=== PATIENT | female | born 1940 | race Caucasian/White ===

== ENCOUNTER 2019-08-03 12:38 | Outpatient (CLI) | payer MEDICARE, MEDICAID, SELFPAY ==
[2019-08-03 14:09] LABS: Basophils % 0.2 %; Eosinophils # 0.1 10^3/uL (0.0-0.8); Eosinophils % 1.7 %; Hematocrit 29.3 % (37.0-47.0); Hemoglobin 9.5 g/dL (11.5-15.3); Lymphocytes # 1.1 10^3/uL (0.8-4.8); Lymphocytes % 13.1 %; Mean Corpuscular HGB Conc 32.4 g/dL (30.0-36.0); Mean Corpuscular Hemoglobin 29.8 pg (28.0-34.0); Mean Corpuscular Volume 91.8 fL (81-99); Mean Platelet Volume 10.1 fL (7.4-10.4); Monocytes # 0.5 10^3/uL (0.2-0.9); Monocytes % 5.4 %; Neutrophils # 6.5 10^3/uL (1.8-7.7); Nucleated Red Blood Cells % 0 %; Platelet Count 285 10^3/cmm (130-400); Red Blood Count 3.19 10^6/uL (4.1-5.3); Red Cell Distribution Width 14.1 % (12.1-15.1); White Blood Count 8.3 10^3/uL (4.0-10.0)
[2019-08-03 14:23] LABS: Ferritin 177 ng/mL (15-150); Iron 46 ug/dL (37-145); Total Iron Binding Capacity 191 mg/dL; Unsaturated Iron Binding 145 ug/dL (112-347)
--- NOTE | 2019-08-03 16:35 | ONC FU_ITS ---
Dr. Gonzales follow up note Patient: Beth Winkler Unit #: [id number]: 1940 Dicatated By: Rob Gonzales M.D.Date of Visit:Aug 03, 2019 Onc Med Follow-up/Prog Note History of Present Illness: Mrs. Beth Winkler, with long-standing history of iron deficiency anemia for many years , on chronic oral iron supplements recently admitted to hospital on 08/28/2017 with hemoglobin 5.8 hematocrit 19.2 with a normal white blood count and platelets she was given 2 units of packed RBCs with that her hemoglobin gone up to 8.5 on 08/29/2017. , stools were checked for occult blood on 08/30/2017 it came back positive. And underwent EGD which showed no gastritis or ulceration , further anemia workup done on 08/28/2017 showed B12 387, TIBC 396.3, iron 28, folate 12.50. Her bilirubin was 0.2. She was given dose of Venofer Peripheral blood smears done on 08/27/2017 showed marked normocytic anemia, with no schistocytes or spherocytes generalized weakness and fatigue and she did receive 2 units of packed RBC . She also had colonoscopy done on 10/09/2017 as per patient couple of polyps were seen otherwise unremarkable. Underwent bone marrow evaluation on 11/13/2017 which showed hypocellular bone marrow with dyspoiesis of erythrocyte and megakaryocytes. Myelodysplastic syndrome FISH panel was negative. She was given trial of erythropoiesis stimulating agent without much success and finally she was referred to hematology clinic at [facility] she was seen on 02/04/2019 and lab workup done there including B12, was normal at 661, homocystine was 9.3, white blood count 10.1 hemoglobin was 11.5 and platelet count was 306,000 MCV was 89.3. Ferritin was 42 TIBC was 264 saturation was 16%. Haptoglobin was mildly elevated at 254, LDH was normal at 170, folate was more than 20 .Status post Injectafer 750 mg on May 26 and 06/02/2019 Impression was her anemia is multifactorial including secondary iron deficiency and patient being very low risk category for myelodysplastic syndrome and would not consider erythropoietin stimulating agent at this time rather monitor her hemoglobin while on iron supplement and if there is drop in her hemoglobin recommended GI evaluation. Came for follow-up, denies any specific complaints no nausea vomiting no diarrhea constipation no palpitation no jaundice, no shortness of breath at rest.. No melena or hematochezia no hemoptysis or hematemesis. Medications: Adult Aspirin EC Low Strength 1 (81 mg) Tablet, enteric coated Oral daily, Ascorbic Acid 1 (500 mg) Tablet Oral daily, Cholecalciferol 1 (1000 Units) Tablet Oral b.i.d., Creon 1 (72401 Units) Capsule Delayed Release Particles Oral t.i.d., Demadex 1 (10 mg) Tablet Oral daily, Econazole Nitrate Cream Topical b.i.d., Ferrous Sulfate 1 (325 (65 fe) mg) Tablet Oral daily, Flonase 1 spray(s) (of 50 mcg/act) Suspension Nasal daily, Insulin Degludec 30 Units Subcutaneous daily, Lisinopril 1 (20 mg) Tablet Oral daily, NovoLOG (100 Units/mL) Subcutaneous Take as Directed, Ocuvite Adult 50+ 1 Capsule Oral daily, [place]-3 1 (1000 mg) Capsule Oral b.i.d., Pletal 1 (100 mg) Tablet Oral b.i.d., Protonix 1 (40 mg) Tablet, enteric coated Oral daily, Proventil HFA 2 puff(s) (of 108 (90 base) mcg/act) Aerosol, solution Inhalation four times a day Allergies: Alginic Acid, Aluminum Hydroxide Gel, bee sting, Calcium Carbonate, dihydroxyaluminum sodium, Loratadine, Magnesium Carbonate, Magnesium Hydroxide, Simethicone, and Sulfa. Review of Systems: Review of Systems is not available for this patient. Vital Signs: Performed on Aug 03, 2019 14:59 Height - 62.00 in Weight - 251.4 lbs (LOW) BSA - 2.11 sq.m BMI - 45.98 (HIGH) Temperature - 97.9 F (LOW) Pulse - 88 /min Respiration - 18 /min BP - 112/43 mm(hg) O2 Sat - 98 % Pain - 0 Performance Status: 2 - Ambulatory/capable of all self-care, unable to perform any work activities. Up and about more than 50% of waking hours. (ECOG) Physical Examination: ENMT - No oral exudates, ulcers, masses, thrush or mucositis. Oropharynx clear. Tongue normal, Respiratory - Lungs are clear to auscultation without rhonchi or wheezing, Cardiovascular - Regular rate and rhythm of heart, Abdomen - Non-tender, non-distended, . Good bowel sounds. No guarding or rebound tenderness. No pulsatile masses, Extremities - 1+ edema bilaterally. Lab/Imaging: Test performed on Aug 03, 2019 14:55 % Iron Saturation 24.0 % Iron, Total 46 mcg/dL TIBC 191 mcg/dL Test performed on May 11, 2019 14:28 Ferritin 36.0 ng/ml UIBC 186 ug/dL WBC 10.5 10 3/uL RBC 3.30 10 6/uL HGB 9.7 g/dl HCT 28.7 % MCV 87.0 fl MCH 29.4 pg MCHC 33.8 g/dl RDW 15.6 % Platelet Count 303 10 3/cmm MPV 7.2 fl Neutrophils 8.9 10 3/uL Lymphocytes 1.0 10 3/uL Monocytes 0.4 10 3/uL Eosinophils 0.1 10 3/uL Basophils 0.0 10 3/uL Neutrophil % 85.4 % Lymphocyte % 9.2 % Monocyte % 4.2 % Eosinophil % 1.0 % Basophils % 0.2 % Test performed on Mar 09, 2019 13:10 Sodium 136 mmol/L Potassium 4.0 mmol/L Chloride 96 mmol/L CO2 28 mmol/L Anion Gap 16.0 BUN 17 mg/dL Creatinine 0.8 mg/dL Cr Clearance (Est) 107.53 mL/min Glucose 198 mg/dl Calcium 10.1 mg/dL Protein, Total 6.8 g/dL Albumin 3.8 g/dL Globulin 3.0 gm/dL Bilirubin, Total 0.2 mg/dL ALT (SGPT) 11 U/L AST (SGOT) 19 U/L Alkaline Phosphatase 87 U/L Impression: Normocytic normochromic anemia,Due to myelodysplasia per bone marrow done on 11/13/2017 Status post 2 units of packed RBCs on 08/28/2017, and dose of Venofer now on oral iron Status post 2 units of packed RBCs on 10/28/2017 History of iron deficiency anemia with a normal EGD in 2011 and on 08/29/2017 and normal colonoscopy in 2008. Colonoscopy done on 10/09/2017 showed in the proximal ascending colon a small area of angiectasia there was no ongoing bleeding. And descending and sigmoid colon small diverticula but not bleeding and internal hemorrhoids Bone marrow done on 11/13/2017 showed hypercellular bone marrow with red cell hyperplasia and dyspoiesis of red cell precursors and megakaryocytes consistent with a myelodysplasia FISH for MDS negative, flow cytometric and cytogenetic normal. Started on Procrit 60,000 units subcutaneous once a week on 01/14/2018 at that time hemoglobin was 7.9 hematocrit 24.5 Status post Injectafer 750 mg intravenously on May 27 and 2017 Hemoglobin on 06/25/2018 improved to 8.7 from 7.1 prior to the infusion Plan: Discussed with patient regarding her labs white blood count 8.3 hemoglobin 9.5 crit 29 point platelets 289,000 and ferritin 177 iron saturation 24 iron 46 TIBC 191, that is after 2 doses of Injectafer given May 2019 Clinically, patient is doing well with well compensated moderate anemia which is multifactorial including underlying myelodysplasia as well as iron deficiency. Patient is not physically active most of time stay in wheelchair. Her hemoglobin is at her baseline, will continue to monitor if there is a further drop in her H&H and iron stores then will consider parenteral iron otherwise monitor her closely on the other hand if she started requiring blood transfusion then we may consider treatment for underlying myelodysplasia too. Return to clinic in 3 months with CBC and iron studies. Signed By: Rob Gonzales M.D. <<Signature on File>>
== END 2019-08-03 12:39 | disposition home or self-care (01) ==
LOC: ONCMED 12:43
PROVIDERS: PCP Nurse Practitioner; Visit Provider Internal Medicine Hematology & Oncology
DX: D46.9 Myelodysplastic syndrome, unspecified (principal); Z99.3 Dependence on wheelchair; Z79.82 Long term (current) use of aspirin
CPT/HCPCS: 82728; 83540; 83550; 85025; G0463

== ENCOUNTER 2019-08-04 09:07 | Outpatient (RCR) | payer MEDICARE, MEDICAID, SELFPAY | END 2019-08-06 23:59 | disposition home or self-care (01) | LOC: WOUND 09:07 | PROVIDERS: Visit Provider Nurse Practitioner Family | DX: I96 Gangrene, not elsewhere classified (principal); L98.492 Non-pressure chronic ulcer of skin of other sites with fat layer exposed | CPT/HCPCS: 99213; G0463 ==

== ENCOUNTER 2019-08-25 09:47 | Outpatient (RCR) | payer MEDICARE, MEDICAID, SELFPAY | END 2019-09-04 23:59 | disposition home or self-care (01) | LOC: WOUND 09:47 | PROVIDERS: PCP Nurse Practitioner; Visit Provider Nurse Practitioner Family | DX: Z09 Encounter for follow-up examination after completed treatment for conditions other than malignant neoplasm (principal) | CPT/HCPCS: 99214; G0463 ==

== ENCOUNTER 2019-11-08 10:55 | Outpatient (CLI) | payer MEDICARE, MEDICAID, SELFPAY ==
[2019-11-08 13:22] LABS: Ferritin 47 ng/mL (15-150); Iron 27 ug/dL (37-145); Percent Saturation 9.9 % (20-50); Total Iron Binding Capacity 271 mcg/dl; Unsaturated Iron Binding 244 ug/dL (112-347)
== END 2019-11-08 10:56 | disposition home or self-care (01) ==
LOC: ONCMED 10:59
PROVIDERS: PCP Nurse Practitioner; Visit Provider Internal Medicine Hematology & Oncology
DX: D50.9 Iron deficiency anemia, unspecified (principal)
CPT/HCPCS: 36415; 82728; 83540; 83550; 85025

== ENCOUNTER 2019-11-19 07:40 | Outpatient (CLI) | payer MEDICARE, MEDICAID, SELFPAY ==
[2019-11-19 11:25] LABS: Basophils # 0.1 10^3/uL (0.0-0.1); Basophils % 0.6 %; Eosinophils # 0.1 10^3/uL (0.0-0.8); Eosinophils % 1.5 %; Hematocrit 30.2 % (37.0-47.0); Hemoglobin 8.8 g/dL (11.5-15.3); Lymphocytes # 1.1 10^3/uL (0.8-4.8); Lymphocytes % 12.6 %; Mean Corpuscular HGB Conc 29.1 g/dL (30.0-36.0); Mean Corpuscular Hemoglobin 27.2 pg (28.0-34.0); Mean Corpuscular Volume 93.5 fL (81-99); Mean Platelet Volume 10.3 fL (7.4-10.4); Monocytes # 0.4 10^3/uL (0.2-0.9); Monocytes % 5.1 %; Neutrophils # 6.7 10^3/uL (1.8-7.7); Neutrophils % 79.5 %; Nucleated Red Blood Cells % 0 %; Platelet Count 275 10^3/cmm (130-400); Red Blood Count 3.23 10^6/uL (4.1-5.3); Red Cell Distribution Width 13.9 % (12.1-15.1); White Blood Count 8.4 10^3/uL (4.0-10.0)
[2019-11-19 11:49] LABS: Ferritin 53 ng/mL (15-150); Iron 73 ug/dL (37-145); Percent Saturation 31.3 % (20-50); Total Iron Binding Capacity 233 mcg/dl; Unsaturated Iron Binding 160 ug/dL (112-347)
== END 2019-11-19 07:41 | disposition home or self-care (01) ==
LOC: ONCMED 11:27
PROVIDERS: PCP Nurse Practitioner; Visit Provider Internal Medicine Hematology & Oncology
DX: D50.9 Iron deficiency anemia, unspecified (principal)
CPT/HCPCS: 36415; 82728; 83540; 83550; 85025

== ENCOUNTER 2019-11-22 15:41 | Outpatient (CLI) | payer MEDICARE, MEDICAID, SELFPAY ==
--- NOTE | 2019-11-22 16:50 | ONC FU_ITS ---
Dr. Gonzales follow up note Patient: Beth Winkler Unit #: [id number]: 1940 Dicatated By: Rob Gonzales M.D.Date of Visit:November 22, 2019 Onc Med Follow-up/Prog Note History of Present Illness: Mrs. Beth Winkler, with long-standing history of iron deficiency anemia for many years , on chronic oral iron supplements recently admitted to hospital on 08/28/2017 with hemoglobin 5.8 hematocrit 19.2 with a normal white blood count and platelets she was given 2 units of packed RBCs with that her hemoglobin gone up to 8.5 on 08/29/2017. , stools were checked for occult blood on 08/30/2017 it came back positive. And underwent EGD which showed no gastritis or ulceration , further anemia workup done on 08/28/2017 showed B12 387, TIBC 396.3, iron 28, folate 12.50. Her bilirubin was 0.2. She was given dose of Venofer Peripheral blood smears done on 08/27/2017 showed marked normocytic anemia, with no schistocytes or spherocytes generalized weakness and fatigue and she did receive 2 units of packed RBC . She also had colonoscopy done on 10/09/2017 as per patient couple of polyps were seen otherwise unremarkable. Underwent bone marrow evaluation on 11/13/2017 which showed hypocellular bone marrow with dyspoiesis of erythrocyte and megakaryocytes. Myelodysplastic syndrome FISH panel was negative. She was given trial of erythropoiesis stimulating agent without much success and finally she was referred to hematology clinic at [facility] she was seen on 02/04/2019 and lab workup done there including B12, was normal at 661, homocystine was 9.3, white blood count 10.1 hemoglobin was 11.5 and platelet count was 306,000 MCV was 89.3. Ferritin was 42 TIBC was 264 saturation was 16%. Haptoglobin was mildly elevated at 254, LDH was normal at 170, folate was more than 20 .Status post Injectafer 750 mg on May 26 and 06/02/2019 Impression was her anemia is multifactorial including secondary iron deficiency and patient being very low risk category for myelodysplastic syndrome and would not consider erythropoietin stimulating agent at this time rather monitor her hemoglobin while on iron supplement and if there is drop in her hemoglobin recommended GI evaluation. Came for follow-up, denies any specific complaints except generalized weakness and fatigue, which is chronic. Otherwise no melena or hematochezia, no nausea or vomiting, no hemoptysis or hematemesis, no nosebleed, no jaundice, no palpitation or shortness of breath at rest Medications: Adult Aspirin EC Low Strength 1 (81 mg) Tablet, enteric coated Oral daily, Ascorbic Acid 1 (500 mg) Tablet Oral daily, Cholecalciferol 1 (1000 Units) Tablet Oral b.i.d., Creon 1 (75394 Units) Capsule Delayed Release Particles Oral t.i.d., Demadex 1 (10 mg) Tablet Oral daily, Econazole Nitrate Cream Topical b.i.d., Ferrous Sulfate 1 (325 (65 fe) mg) Tablet Oral daily, Flonase 1 spray(s) (of 50 mcg/act) Suspension Nasal daily, Insulin Degludec 30 Units Subcutaneous daily, Lisinopril 1 (20 mg) Tablet Oral daily, NovoLOG (100 Units/mL) Subcutaneous Take as Directed, Ocuvite Adult 50+ 1 Capsule Oral daily, [place]-3 1 (1000 mg) Capsule Oral b.i.d., Pletal 1 (100 mg) Tablet Oral b.i.d., Protonix 1 (40 mg) Tablet, enteric coated Oral daily, Proventil HFA 2 puff(s) (of 108 (90 base) mcg/act) Aerosol, solution Inhalation four times a day Allergies: Alginic Acid, Aluminum Hydroxide Gel, bee sting, Calcium Carbonate, dihydroxyaluminum sodium, Loratadine, Magnesium Carbonate, Magnesium Hydroxide, Simethicone, and Sulfa. Review of Systems: Constitutional - Appetite is good and weight is stable. No fever, chills, hot flashes, or night sweats. Energy level is poor, ENMT - Some sinus congestion/drainage. No mouth sores. No sore throat or difficulty swallowing, Hematologic/Lymphatic - No abnormal bruising or bleeding, Respiratory - Frequent shortness of breath. Pt is on portable oxygen today. No cough. No pleuritic pain or hemoptysis, Cardiovascular - No angina pain. No palpitations, Gastrointestinal - No nausea or vomiting. Frequent heartburn or acid reflux. No diarrhea or constipation. No blood in the stool or black stools, Genitourinary (F) - No dysuria or hematuria. No urinary frequency. No urgency or incontinence, Musculoskeletal - Bilateral knee pain, Neurologic - Frequent headache or dizziness. Chronic numbness/paresthesias in feet.No other focal neurologic symptoms, Psychiatric - No anxiety or depression. No insomnia. Vital Signs: Performed on November 22, 2019 16:00 Height - 62.00 in Weight - 255.6 lbs (HIGH) BSA - 2.12 sq.m BMI - 46.75 (HIGH) Temperature - 98.2 F (LOW) Pulse - 85 /min Respiration - 19 /min BP - 135/50 mm(hg) O2 Sat - 100 % Pain - 9 Performance Status: 2 - Ambulatory/capable of all self-care, unable to perform any work activities. Up and about more than 50% of waking hours. (ECOG) Physical Examination: ENMT - no mouth sores, no jaundice, Respiratory - Lungs are clear but poor air entry, Cardiovascular - Regular rate and rhythm of heart, Abdomen - soft ,bowel sounds present, Extremities - 1+ edema bilaterally. Lab/Imaging: Test performed on November 19, 2019 07:40 Ferritin 53 ng/mL Iron 73 mcg/dL Iron Binding Capacity (TIBC) 233 mcg/dl % Iron Saturation 31.3 % UIBC 160 mcg/dL WBC 8.4 10 3/uL RBC 3.23 10 6/uL HGB 8.8 g/dL HCT 30.2 % MCV 93.5 fL MCH 27.2 pg MCHC 29.1 g/dL RDW 13.9 % Platelet Count 275 10 3/cmm MPV 10.3 fL Neutrophils 6.7 10 3/uL Lymphocytes 1.1 10 3/uL Monocytes 0.4 10 3/uL Eosinophils 0.1 10 3/uL Basophils 0.1 10 3/uL Neutrophil % 79.5 % Lymphocyte % 12.6 % Monocyte % 5.1 % Eosinophil % 1.5 % Basophils % 0.6 % Impression: Normocytic normochromic anemia,Due to myelodysplasia per bone marrow done on 11/13/2017 Status post 2 units of packed RBCs on 08/28/2017, and dose of Venofer now on oral iron Status post 2 units of packed RBCs on 10/28/2017 History of iron deficiency anemia with a normal EGD in 2011 and on 08/29/2017 and normal colonoscopy in 2008. Colonoscopy done on 10/09/2017 showed in the proximal ascending colon a small area of angiectasia there was no ongoing bleeding. And descending and sigmoid colon small diverticula but not bleeding and internal hemorrhoids Bone marrow done on 11/13/2017 showed hypercellular bone marrow with red cell hyperplasia and dyspoiesis of red cell precursors and megakaryocytes consistent with a myelodysplasia FISH for MDS negative, flow cytometric and cytogenetic normal. Started on Procrit 60,000 units subcutaneous once a week on 01/14/2018 at that time hemoglobin was 7.9 hematocrit 24.5 Status post Injectafer 750 mg intravenously on May 27 and 2017 Hemoglobin on 06/25/2018 improved to 8.7 from 7.1 prior to the infusion Plan: Discussed with patient regarding her labs white blood count 8.4 hemoglobin 8.8 g compared to 9.5 g on 08/03/2019, hematocrit 30.2 platelets 275,000 Iron studies shows iron saturation 31.3, iron 72, TIBC 233 Clinically, patient is doing well with no signs symptom suggestive of hemolysis or bleeding. Her follow-up lab shows persistent but stable moderate normocytic anemia, which appears to be multifactorial including underlying myelodysplasia, patient is a wheelchair-bound not physically active and her anemia as well compensated. So discussed with patient and her daughter regarding treatment options including demethylating agent or trial with erythropoiesis stimulating agent or observation as patient is not requiring repeated blood transfusions and not symptomatic from anemia. So at patient request we'll continue to monitor and She will return to clinic in one month with CBC CMP Signed By: Rob Gonzales M.D. <<Signature on File>>
== END 2019-11-22 15:42 | disposition home or self-care (01) ==
LOC: ONCMED 15:48
PROVIDERS: PCP Nurse Practitioner; Visit Provider Internal Medicine Hematology & Oncology
DX: D46.9 Myelodysplastic syndrome, unspecified (principal); Z79.899 Other long term (current) drug therapy
CPT/HCPCS: G0463

== ENCOUNTER 2019-12-17 09:40 | Outpatient (CLI) | payer MEDICARE, MEDICAID, SELFPAY ==
[2019-12-17 11:51] LABS: Basophils # 0.1 10^3/uL (0.0-0.1); Basophils % 0.7 %; Eosinophils # 0.1 10^3/uL (0.0-0.8); Eosinophils % 1.4 %; Hemoglobin 8.6 g/dL (11.5-15.3); Lymphocytes # 1.1 10^3/uL (0.8-4.8); Lymphocytes % 10.8 %; Mean Corpuscular HGB Conc 28.7 g/dL (30.0-36.0); Mean Corpuscular Volume 94.3 fL (81-99); Mean Platelet Volume 9.2 fL (7.4-10.4); Monocytes # 0.6 10^3/uL (0.2-0.9); Monocytes % 6.2 %; Neutrophils % 80.3 %; Nucleated Red Blood Cells % 0 %; Platelet Count 328 10^3/cmm (130-400); Red Blood Count 3.18 10^6/uL (4.1-5.3); Red Cell Distribution Width 14.8 % (12.1-15.1); White Blood Count 9.9 10^3/uL (4.0-10.0)
[2019-12-17 12:13] LABS: Alanine Aminotransferase 10 U/L (0-33); Albumin Level 3.6 g/dL (3.5-5.2); Alkaline Phosphatase 85 IU/L (35-105); Anion Gap 17.9 (5-19); Aspartate Amino Transferase 18 U/L (0-32); Blood Urea Nitrogen 15 mg/dL (8-23); Calcium 9.9 mg/dL (8.5-10.5); Carbon Dioxide 28 mmol/L (22-29); Chloride 98 mmol/L (98-107); Globulin 3.7 g/dL (1.3-4.6); Glucose 112 mg/dL (65-115); Osmolality Calculated 289 mOsm/kg (285-295); Sodium 141 mmol/L (136-145); Total Bilirubin 0.2 mg/dL (0.15-1.2); Total Protein 7.3 g/dL (6.6-8.7)
[2019-12-17 12:22] LABS: Potassium 2.9 mmol/L (3.5-5.1)
[2019-12-18 18:36] LABS: Magnesium 1.8 mg/dL (1.7-2.3)
== END 2019-12-17 09:41 | disposition home or self-care (01) ==
LOC: ONCMED 11:33
PROVIDERS: PCP Nurse Practitioner; Visit Provider Internal Medicine Hematology & Oncology
DX: D50.9 Iron deficiency anemia, unspecified (principal); I25.10 Atherosclerotic heart disease of native coronary artery without angina pectoris; I65.23 Occlusion and stenosis of bilateral carotid arteries; J44.9 Chronic obstructive pulmonary disease, unspecified; I10 Essential (primary) hypertension; E78.5 Hyperlipidemia, unspecified; G47.33 Obstructive sleep apnea (adult) (pediatric); E11.9 Type 2 diabetes mellitus without complications
CPT/HCPCS: 36415; 80053; 83735; 85025

== ENCOUNTER 2019-12-20 13:06 | Outpatient (CLI) | payer MEDICARE, MEDICAID, SELFPAY ==
[2019-12-20 13:55] LABS: Alanine Aminotransferase 8 U/L (0-33); Albumin Level 3.7 g/dL (3.5-5.2); Alkaline Phosphatase 79 IU/L (35-105); Anion Gap 15.6 (5-19); Aspartate Amino Transferase 12 U/L (0-32); Blood Urea Nitrogen 15 mg/dL (8-23); Calcium 10.8 mg/dL (8.5-10.5); Carbon Dioxide 28 mmol/L (22-29); Chloride 100 mmol/L (98-107); Glucose 159 mg/dL (65-115); Osmolality Calculated 290 mOsm/kg (285-295); Potassium 3.6 mmol/L (3.5-5.1); Sodium 140 mmol/L (136-145); Total Bilirubin 0.2 mg/dL (0.15-1.2); Total Protein 6.7 g/dL (6.6-8.7)
--- NOTE | 2019-12-20 14:49 | ONC FU_ITS ---
Dr. Gonzales follow up note Patient: Beth Winkler Unit #: [id number]: 1940 Dicatated By: Rob Gonzales M.D.Date of Visit:Dec 20, 2019 Onc Med Follow-up/Prog Note History of Present Illness: Mrs. Beth Winkler, with long-standing history of iron deficiency anemia for many years , on chronic oral iron supplements recently admitted to hospital on 08/28/2017 with hemoglobin 5.8 hematocrit 19.2 with a normal white blood count and platelets she was given 2 units of packed RBCs with that her hemoglobin gone up to 8.5 on 08/29/2017. , stools were checked for occult blood on 08/30/2017 it came back positive. And underwent EGD which showed no gastritis or ulceration , further anemia workup done on 08/28/2017 showed B12 387, TIBC 396.3, iron 28, folate 12.50. Her bilirubin was 0.2. She was given dose of Venofer Peripheral blood smears done on 08/27/2017 showed marked normocytic anemia, with no schistocytes or spherocytes generalized weakness and fatigue and she did receive 2 units of packed RBC . She also had colonoscopy done on 10/09/2017 as per patient couple of polyps were seen otherwise unremarkable. Underwent bone marrow evaluation on 11/13/2017 which showed hypocellular bone marrow with dyspoiesis of erythrocyte and megakaryocytes. Myelodysplastic syndrome FISH panel was negative. She was given trial of erythropoiesis stimulating agent without much success and finally she was referred to hematology clinic at [facility] she was seen on 02/04/2019 and lab workup done there including B12, was normal at 661, homocystine was 9.3, white blood count 10.1 hemoglobin was 11.5 and platelet count was 306,000 MCV was 89.3. Ferritin was 42 TIBC was 264 saturation was 16%. Haptoglobin was mildly elevated at 254, LDH was normal at 170, folate was more than 20 .Status post Injectafer 750 mg on May 26 and 06/02/2019 Impression was her anemia is multifactorial including secondary iron deficiency and patient being very low risk category for myelodysplastic syndrome and would not consider erythropoietin stimulating agent at this time rather monitor her hemoglobin while on iron supplement and if there is drop in her hemoglobin recommended GI evaluation. Came for follow-up, denies any specific complaints, no melena or hematochezia, no hematuria, no hemoptysis or hematemesis, no jaundice. Patient is a wheelchair-bound most of the time not a very active person denies any dyspnea or palpitation, denies any chest pain Medications: Adult Aspirin EC Low Strength 1 (81 mg) Tablet, enteric coated Oral daily, Ascorbic Acid 1 (500 mg) Tablet Oral daily, Cholecalciferol 1 (1000 Units) Tablet Oral b.i.d., Creon 1 (20358 Units) Capsule Delayed Release Particles Oral t.i.d., Demadex 1 (10 mg) Tablet Oral daily, Econazole Nitrate Cream Topical b.i.d., Ferrous Sulfate 1 (325 (65 fe) mg) Tablet Oral daily, Flonase 1 spray(s) (of 50 mcg/act) Suspension Nasal daily, Furosemide 1 Tablet (of 20 mg) Oral daily, Insulin Degludec 30 Units Subcutaneous daily, K-Tab 1 Tablet (of 20 meq) Tablet, controlled release Oral daily, Lisinopril 1 (20 mg) Tablet Oral daily, NovoLOG (100 Units/mL) Subcutaneous Take as Directed, Ocuvite Adult 50+ 1 Capsule Oral daily, [facility] [place]-3 1 (1000 mg) Capsule Oral b.i.d., Pletal 1 (100 mg) Tablet Oral b.i.d., Protonix 1 (40 mg) Tablet, enteric coated Oral daily, Proventil HFA 2 puff(s) (of 108 (90 base) mcg/act) Aerosol, solution Inhalation four times a day Allergies: Alginic Acid, Aluminum Hydroxide Gel, bee sting, Calcium Carbonate, dihydroxyaluminum sodium, Loratadine, Magnesium Carbonate, Magnesium Hydroxide, Simethicone, and Sulfa. Review of Systems: Constitutional - Appetite is good and weight is stable. No fever, chills, hot flashes, or night sweats. Energy level is poor, ENMT - Some sinus congestion/drainage. No mouth sores. No sore throat or difficulty swallowing, Hematologic/Lymphatic - No abnormal bruising or bleeding, Respiratory - Frequent shortness of breath. Pt is on portable oxygen today. No cough. No pleuritic pain or hemoptysis, Cardiovascular - No angina pain. No palpitations, Gastrointestinal - No nausea or vomiting. Frequent heartburn or acid reflux. No diarrhea or constipation. No blood in the stool or black stools, Genitourinary (F) - No dysuria or hematuria. No urinary frequency. No urgency or incontinence, Musculoskeletal - Bilateral knee pain, Neurologic - Frequent headache or dizziness. Chronic numbness/paresthesias in feet.No other focal neurologic symptoms, Psychiatric - No anxiety or depression. No insomnia. Vital Signs: Performed on Dec 20, 2019 14:24 Height - 62.00 in Weight - 257.4 lbs (HIGH) BSA - 2.13 sq.m BMI - 47.08 (HIGH) Temperature - 98.8 F Pulse - 93 /min Respiration - 26 /min BP - 130/40 mm(hg) O2 Sat - 98 % Pain - 9 Performance Status: 2 - Ambulatory/capable of all self-care, unable to perform any work activities. Up and about more than 50% of waking hours. (ECOG) Physical Examination: ENMT - No mouth sores, no thrush, no jaundice, Respiratory - Lungs are clear, Cardiovascular - Regular rate and rhythm of heart, Abdomen - Soft, bowel sounds present, Extremities - 1+ edema bilaterally. Lab/Imaging: Test performed on November 19, 2019 07:40 Ferritin 53 ng/mL Iron 73 mcg/dL Iron Binding Capacity (TIBC) 233 mcg/dl % Iron Saturation 31.3 % UIBC 160 mcg/dL WBC 8.4 10 3/uL RBC 3.23 10 6/uL HGB 8.8 g/dL HCT 30.2 % MCV 93.5 fL MCH 27.2 pg MCHC 29.1 g/dL RDW 13.9 % Platelet Count 275 10 3/cmm MPV 10.3 fL Neutrophils 6.7 10 3/uL Lymphocytes 1.1 10 3/uL Monocytes 0.4 10 3/uL Eosinophils 0.1 10 3/uL Basophils 0.1 10 3/uL Neutrophil % 79.5 % Lymphocyte % 12.6 % Monocyte % 5.1 % Eosinophil % 1.5 % Basophils % 0.6 % Impression: Normocytic normochromic anemia,Due to myelodysplasia per bone marrow done on 11/13/2017 Status post 2 units of packed RBCs on 08/28/2017, and dose of Venofer now on oral iron Status post 2 units of packed RBCs on 10/28/2017 History of iron deficiency anemia with a normal EGD in 2011 and on 08/29/2017 and normal colonoscopy in 2008. Colonoscopy done on 10/09/2017 showed in the proximal ascending colon a small area of angiectasia there was no ongoing bleeding. And descending and sigmoid colon small diverticula but not bleeding and internal hemorrhoids Bone marrow done on 11/13/2017 showed hypercellular bone marrow with red cell hyperplasia and dyspoiesis of red cell precursors and megakaryocytes consistent with a myelodysplasia FISH for MDS negative, flow cytometric and cytogenetic normal. Started on Procrit 60,000 units subcutaneous once a week on 01/14/2018 at that time hemoglobin was 7.9 hematocrit 24.5 Status post Injectafer 750 mg intravenously on May 27 and 2017 Hemoglobin on 06/25/2018 improved to 8.7 from 7.1 prior to the infusion Plan: Discussed with patient regarding her labs white blood count 9.9 hemoglobin 8.6 crit 30 platelets 328,000 CMP within normal limit except glucose 159 and calcium 10,8, compared to 9.9 on December 17, 2019. Clinically, patient is doing well, with no new signs symptom her follow-up labs shows persistent mild/moderate anemia due to underlying myelodysplasia, patient is well compensated, again treatment with KELL or demethylating agents was discussed with patient and her daughter prefer observation, as patient is not symptomatic and considering side effect and benefits associated with treatment overweigh risk versus benefit. And prefer observation, would consider blood transfusion if needed, in that case she will return to clinic in 2 months with CBC Signed By: Rob Gonzales M.D. <<Signature on File>>
== END 2019-12-20 13:07 | disposition home or self-care (01) ==
LOC: ONCMED 13:10
PROVIDERS: PCP Nurse Practitioner; Visit Provider Internal Medicine Hematology & Oncology
DX: D46.9 Myelodysplastic syndrome, unspecified (principal); K57.30 Diverticulosis of large intestine without perforation or abscess without bleeding; D50.9 Iron deficiency anemia, unspecified
CPT/HCPCS: 80053; G0463

== ENCOUNTER 2020-02-21 12:13 | Outpatient (CLI) | payer MEDICARE, MEDICAID, SELFPAY ==
[2020-02-21 12:52] LABS: Basophils % 0.4 %; Eosinophils # 0.2 10^3/uL (0.0-0.8); Eosinophils % 1.8 %; Hematocrit 28.9 % (37.0-47.0); Hemoglobin 8.1 g/dL (11.5-15.3); Lymphocytes # 0.9 10^3/uL (0.8-4.8); Lymphocytes % 9.4 %; Mean Corpuscular Hemoglobin 27.3 pg (28.0-34.0); Mean Corpuscular Volume 97.3 fL (81-99); Mean Platelet Volume 9.4 fL (7.4-10.4); Monocytes # 0.5 10^3/uL (0.2-0.9); Monocytes % 5.6 %; Neutrophils # 7.84 10^3/uL (1.8-7.7); Neutrophils % 82.3 %; Nucleated Red Blood Cells % 0 %; Platelet Count 257 10^3/cmm (130-400); Red Blood Count 2.97 10^6/uL (4.1-5.3); Red Cell Distribution Width 17.2 % (12.1-15.1); White Blood Count 9.5 10^3/uL (4.0-10.0)
[2020-02-21 13:11] LABS: Alanine Aminotransferase 8 U/L (0-33); Albumin Level 3.5 g/dL (3.5-5.2); Alkaline Phosphatase 80 IU/L (35-105); Anion Gap 12.1 (5-19); Aspartate Amino Transferase 13 U/L (0-32); Blood Urea Nitrogen 13 mg/dL (8-23); Calcium 9.6 mg/dL (8.5-10.5); Carbon Dioxide 32 mmol/L (22-29); Chloride 100 mmol/L (98-107); Globulin 3.3 g/dL (1.3-4.6); Glucose 83 mg/dL (65-115); Osmolality Calculated 287 mOsm/kg (285-295); Potassium 3.1 mmol/L (3.5-5.1); Sodium 141 mmol/L (136-145); Total Bilirubin 0.2 mg/dL (0.15-1.2); Total Protein 6.8 g/dL (6.6-8.7)
[2020-02-21 15:19] LABS: Ferritin 47 ng/mL (15-150); Iron 44 ug/dL (37-145); Percent Saturation 22.1 % (20-50); Total Iron Binding Capacity 199 mcg/dl; Unsaturated Iron Binding 155 ug/dL (112-347)
--- NOTE | 2020-02-22 18:28 | ONC FU_ITS ---
Dr. Gonzales follow up note Patient: Beth Winkler Unit #: [id number]: 1940 Dicatated By: Rob Gonzales M.D.Date of Visit:Feb 21, 2020 Onc Med Follow-up/Prog Note History of Present Illness: Mrs. Beth Winkler, with long-standing history of iron deficiency anemia for many years , on chronic oral iron supplements recently admitted to hospital on 08/28/2017 with hemoglobin 5.8 hematocrit 19.2 with a normal white blood count and platelets she was given 2 units of packed RBCs with that her hemoglobin gone up to 8.5 on 08/29/2017. , stools were checked for occult blood on 08/30/2017 it came back positive. And underwent EGD which showed no gastritis or ulceration , further anemia workup done on 08/28/2017 showed B12 387, TIBC 396.3, iron 28, folate 12.50. Her bilirubin was 0.2. She was given dose of Venofer Peripheral blood smears done on 08/27/2017 showed marked normocytic anemia, with no schistocytes or spherocytes generalized weakness and fatigue and she did receive 2 units of packed RBC . She also had colonoscopy done on 10/09/2017 as per patient couple of polyps were seen otherwise unremarkable. Underwent bone marrow evaluation on 11/13/2017 which showed hypocellular bone marrow with dyspoiesis of erythrocyte and megakaryocytes. Myelodysplastic syndrome FISH panel was negative. She was given trial of erythropoiesis stimulating agent without much success and finally she was referred to hematology clinic at [facility] she was seen on 02/04/2019 and lab workup done there including B12, was normal at 661, homocystine was 9.3, white blood count 10.1 hemoglobin was 11.5 and platelet count was 306,000 MCV was 89.3. Ferritin was 42 TIBC was 264 saturation was 16%. Haptoglobin was mildly elevated at 254, LDH was normal at 170, folate was more than 20 .Status post Injectafer 750 mg on May 26 and 06/02/2019 Impression was her anemia is multifactorial including secondary iron deficiency and patient being very low risk category for myelodysplastic syndrome and would not consider erythropoietin stimulating agent at this time rather monitor her hemoglobin while on iron supplement and if there is drop in her hemoglobin recommended GI evaluation. Came for follow-up, denies any specific complaints, no fever chills, no nausea or vomiting, no diarrhea, or constipation, no melena occasionally hematochezia, tolerating daily oral iron well, patient said she is scheduled for an upper and lower GI with Dr. Johnson in [place] on March 21, 2020. No palpitation, no shortness of breath at rest patient is mostly wheelchair-bound Medications: Adult Aspirin EC Low Strength 1 (81 mg) Tablet, enteric coated Oral daily, Ascorbic Acid 1 (500 mg) Tablet Oral daily, Cholecalciferol 1 (1000 Units) Tablet Oral b.i.d., Creon 1 (90045 Units) Capsule Delayed Release Particles Oral t.i.d., Demadex 1 (10 mg) Tablet Oral daily, Econazole Nitrate Cream Topical b.i.d., Ferrous Sulfate 1 (325 (65 fe) mg) Tablet Oral daily, Flonase 1 spray(s) (of 50 mcg/act) Suspension Nasal daily, Furosemide 1 Tablet (of 20 mg) Oral daily, Insulin Degludec 30 Units Subcutaneous daily, K-Tab 1 Tablet (of 20 meq) Tablet, controlled release Oral daily, Lisinopril 1 (20 mg) Tablet Oral daily, NovoLOG (100 Units/mL) Subcutaneous Take as Directed, Ocuvite Adult 50+ 1 Capsule Oral daily, [place]-3 1 (1000 mg) Capsule Oral b.i.d., Pletal 1 (100 mg) Tablet Oral b.i.d., Protonix 1 (40 mg) Tablet, enteric coated Oral daily, Proventil HFA 2 puff(s) (of 108 (90 base) mcg/act) Aerosol, solution Inhalation four times a day Allergies: Alginic Acid, Aluminum Hydroxide Gel, bee sting, Calcium Carbonate, dihydroxyaluminum sodium, Loratadine, Magnesium Carbonate, Magnesium Hydroxide, Simethicone, and Sulfa. Review of Systems: Review of Systems is not available for this patient. Vital Signs: Performed on Feb 21, 2020 13:47 Height - 62.00 in Weight - 257.2 lbs (LOW) BSA - 2.13 sq.m BMI - 47.04 (HIGH) Temperature - 98.2 F (LOW) Pulse - 91 /min Respiration - 26 /min BP - 133/48 mm(hg) O2 Sat - 100 % Pain - 6 Performance Status: 2 - Ambulatory/capable of all self-care, unable to perform any work activities. Up and about more than 50% of waking hours. (ECOG) Physical Examination: ENMT - No mouth sores, no thrush, no jaundice, Respiratory - Poor air entry otherwise clear, Cardiovascular - Regular rate and rhythm of heart, Abdomen - Soft, bowel sounds present, Extremities - 1+ edema bilaterally. Lab/Imaging: Test performed on Dec 20, 2019 13:21 Sodium 140 mmol/L Potassium 3.6 mmol/L Chloride 100 mmol/L CO2 28 mmol/L Anion Gap 15.6 BUN 15 mg/dL Creatinine 0.9 mg/dL Cr Clearance (Est) 96.49 mL/min Glucose 159 mg/dL Calcium 10.8 mg/dL Protein, Total 6.7 g/dL Albumin 3.7 g/dL Globulin 3.0 g/dL Bilirubin, Total 0.2 mg/dL ALT (SGPT) 8 U/L AST (SGOT) 12 U/L Alkaline Phosphatase 79 IU/L Test performed on Dec 17, 2019 09:40 Magnesium 1.8 mg/dL Test performed on Dec 17, 2019 09:05 WBC 9.9 10 3/uL RBC 3.18 10 6/uL HGB 8.6 g/dL HCT 30.0 % MCV 94.3 fL MCH 27.0 pg MCHC 28.7 g/dL RDW 14.8 % Platelet Count 328 10 3/cmm MPV 9.2 fL Neutrophils 8.0 10 3/uL Lymphocytes 1.1 10 3/uL Monocytes 0.6 10 3/uL Eosinophils 0.1 10 3/uL Basophils 0.1 10 3/uL Neutrophil % 80.3 % Lymphocyte % 10.8 % Monocyte % 6.2 % Eosinophil % 1.4 % Basophils % 0.7 % NRBC % 0 % Test performed on November 19, 2019 07:40 Ferritin 53 ng/mL Iron 73 mcg/dL Iron Binding Capacity (TIBC) 233 mcg/dl % Iron Saturation 31.3 % UIBC 160 mcg/dL Impression: Normocytic normochromic anemia,Due to myelodysplasia per bone marrow done on 11/13/2017 Status post 2 units of packed RBCs on 08/28/2017, and dose of Venofer now on oral iron Status post 2 units of packed RBCs on 10/28/2017 History of iron deficiency anemia with a normal EGD in 2011 and on 08/29/2017 and normal colonoscopy in 2008. Colonoscopy done on 10/09/2017 showed in the proximal ascending colon a small area of angiectasia there was no ongoing bleeding. And descending and sigmoid colon small diverticula but not bleeding and internal hemorrhoids Bone marrow done on 11/13/2017 showed hypercellular bone marrow with red cell hyperplasia and dyspoiesis of red cell precursors and megakaryocytes consistent with a myelodysplasia FISH for MDS negative, flow cytometric and cytogenetic normal. Started on Procrit 60,000 units subcutaneous once a week on 01/14/2018 at that time hemoglobin was 7.9 hematocrit 24.5 Status post Injectafer 750 mg intravenously on May 27 and 2017 Hemoglobin on 06/25/2018 improved to 8.7 from 7.1 prior to the infusion Plan: Discussed with patient regarding her labs white blood count 9.5 hemoglobin 8.1 hematocrit 28.9 platelets 257,000 CMP within normal limit except potassium 3.1 Clinically, patient doing reasonably well, with no new signs symptoms, well compensated persistent moderate anemia patient is not very active physically as she uses wheelchair most of the time also trying physical therapy. Etiology of her anemia is multifactorial including underlying myelodysplasia plus minus iron deficiency, GI work-up is in progress, patient is on oral iron, will replete her iron studies if it shows persistent iron deficiency, we may consider parenteral iron,. Again discussed about role of demethylating agent and myelodysplasia, patient prefer supportive care only. Return to clinic in 1 month with CBC at that time we will also review her upper/lower GI evaluation reports. Signed By: Rob Gonzales M.D. <<Signature on File>>
== END 2020-02-21 12:14 | disposition home or self-care (01) ==
LOC: ONCMED 12:16
PROVIDERS: PCP Nurse Practitioner Family; Visit Provider Internal Medicine Hematology & Oncology
DX: D50.9 Iron deficiency anemia, unspecified (principal); E78.5 Hyperlipidemia, unspecified; I10 Essential (primary) hypertension; G47.33 Obstructive sleep apnea (adult) (pediatric); E11.9 Type 2 diabetes mellitus without complications
CPT/HCPCS: 80053; 82728; 83540; 83550; 85025; G0463

== ENCOUNTER 2020-03-29 13:14 | Outpatient (CLI) | payer MEDICARE, MEDICAID, SELFPAY ==
[2020-03-29 14:32] LABS: Basophils % 0.4 %; Eosinophils # 0.1 10^3/uL (0.0-0.8); Eosinophils % 1.2 %; Hematocrit 32.8 % (37.0-47.0); Hemoglobin 9.8 g/dL (11.5-15.3); Lymphocytes # 1.1 10^3/uL (0.8-4.8); Lymphocytes % 11.3 %; Mean Corpuscular HGB Conc 29.9 g/dL (30.0-36.0); Mean Corpuscular Hemoglobin 27.9 pg (28.0-34.0); Mean Corpuscular Volume 93.4 fL (81-99); Mean Platelet Volume 9.7 fL (7.4-10.4); Monocytes # 0.5 10^3/uL (0.2-0.9); Neutrophils # 7.88 10^3/uL (1.8-7.7); Neutrophils % 81.7 %; Nucleated Red Blood Cells % 0 %; Platelet Count 266 10^3/cmm (130-400); Red Blood Count 3.51 10^6/uL (4.1-5.3); Red Cell Distribution Width 14.6 % (12.1-15.1); White Blood Count 9.7 10^3/uL (4.0-10.0)
[2020-03-29 14:53] LABS: Alanine Aminotransferase 10 U/L (0-33); Albumin Level 3.7 g/dL (3.5-5.2); Alkaline Phosphatase 79 IU/L (35-105); Anion Gap 14.4 (5-19); Aspartate Amino Transferase 17 U/L (0-32); Blood Urea Nitrogen 12 mg/dL (8-23); Calcium 10.2 mg/dL (8.5-10.5); Carbon Dioxide 29 mmol/L (22-29); Chloride 97 mmol/L (98-107); Globulin 3.5 g/dL (1.3-4.6); Glucose 99 mg/dL (65-115); Osmolality Calculated 284 mOsm/kg (285-295); Potassium 3.4 mmol/L (3.5-5.1); Sodium 137 mmol/L (136-145); Total Bilirubin 0.2 mg/dL (0.15-1.2); Total Protein 7.2 g/dL (6.6-8.7)
--- NOTE | 2020-03-29 18:16 | ONC FU_ITS ---
Dr. Gonzales follow up note Patient: Beth Winkler Unit #: [id number]: [id number] Dicatated By: Rob Gonzales M.D.Date of Visit:Mar 29, 2020 Onc Med Follow-up/Prog Note History of Present Illness: Mrs. Beth Winkler, with long-standing history of iron deficiency anemia for many years , on chronic oral iron supplements recently admitted to hospital on 08/28/2017 with hemoglobin 5.8 hematocrit 19.2 with a normal white blood count and platelets she was given 2 units of packed RBCs with that her hemoglobin gone up to 8.5 on 08/29/2017. , stools were checked for occult blood on 08/30/2017 it came back positive. And underwent EGD which showed no gastritis or ulceration , further anemia workup done on 08/28/2017 showed B12 387, TIBC 396.3, iron 28, folate 12.50. Her bilirubin was 0.2. She was given dose of Venofer Peripheral blood smears done on 08/27/2017 showed marked normocytic anemia, with no schistocytes or spherocytes generalized weakness and fatigue and she did receive 2 units of packed RBC . She also had colonoscopy done on 10/09/2017 as per patient couple of polyps were seen otherwise unremarkable. Underwent bone marrow evaluation on 11/13/2017 which showed hypocellular bone marrow with dyspoiesis of erythrocyte and megakaryocytes. Myelodysplastic syndrome FISH panel was negative. She was given trial of erythropoiesis stimulating agent without much success and finally she was referred to hematology clinic at [facility] she was seen on 02/04/2019 and lab workup done there including B12, was normal at 661, homocystine was 9.3, white blood count 10.1 hemoglobin was 11.5 and platelet count was 306,000 MCV was 89.3. Ferritin was 42 TIBC was 264 saturation was 16%. Haptoglobin was mildly elevated at 254, LDH was normal at 170, folate was more than 20 .Status post Injectafer 750 mg on May 26 and 06/02/2019 Impression was her anemia is multifactorial including secondary iron deficiency and patient being very low risk category for myelodysplastic syndrome and would not consider erythropoietin stimulating agent at this time rather monitor her hemoglobin while on iron supplement and if there is drop in her hemoglobin recommended GI evaluation. Came for follow-up, denies any specific complaints, no fever chills, no diarrhea or constipation, no melena or hematochezia, no shortness of breath or palpitation at rest, no jaundice Medications: Adult Aspirin EC Low Strength 1 (81 mg) Tablet, enteric coated Oral daily, Ascorbic Acid 1 (500 mg) Tablet Oral daily, Cholecalciferol 1 (1000 Units) Tablet Oral b.i.d., Creon 1 (96777 Units) Capsule Delayed Release Particles Oral t.i.d., Demadex 1 (10 mg) Tablet Oral daily, Econazole Nitrate Cream Topical b.i.d., Ferrous Sulfate 1 (325 (65 fe) mg) Tablet Oral daily, Flonase 1 spray(s) (of 50 mcg/act) Suspension Nasal daily, Furosemide 1 Tablet (of 20 mg) Oral daily, Gabapentin 1 Capsule (of 100 mg) Oral at bedtime, Insulin Degludec 30 Units Subcutaneous daily, K-Tab 1 Tablet (of 20 meq) Tablet, controlled release Oral daily, Lisinopril 1 (20 mg) Tablet Oral daily, NovoLOG (100 Units/mL) Subcutaneous Take as Directed, Ocuvite Adult 50+ 1 Capsule Oral daily, [place]-3 1 (1000 mg) Capsule Oral b.i.d., Pletal 1 (100 mg) Tablet Oral b.i.d., Protonix 1 (40 mg) Tablet, enteric coated Oral daily, Proventil HFA 2 puff(s) (of 108 (90 base) mcg/act) Aerosol, solution Inhalation four times a day Allergies: Alginic Acid, Aluminum Hydroxide Gel, bee sting, Calcium Carbonate, dihydroxyaluminum sodium, Loratadine, Magnesium Carbonate, Magnesium Hydroxide, Simethicone, and Sulfa. Review of Systems: Constitutional - Appetite is good and weight is stable. No fever, chills, hot flashes, or night sweats. Energy level is poor, ENMT - Some sinus congestion/drainage. No mouth sores. No sore throat or difficulty swallowing, Hematologic/Lymphatic - No abnormal bruising or bleeding, Respiratory - Frequent shortness of breath. Pt is on portable oxygen today. No cough. No pleuritic pain or hemoptysis, Cardiovascular - No angina pain. No palpitations, Gastrointestinal - No nausea or vomiting. Frequent heartburn or acid reflux. No diarrhea or constipation. No blood in the stool or black stools, Genitourinary (F) - No dysuria or hematuria. No urinary frequency. No urgency or incontinence, Musculoskeletal - Bilateral knee pain, Neurologic - Frequent headache or dizziness. Chronic numbness/paresthesias in feet.No other focal neurologic symptoms, Psychiatric - No anxiety or depression. No insomnia. Vital Signs: Performed on Mar 29, 2020 14:36 Height - 62.00 in Weight - 250.4 lbs (LOW) BSA - 2.10 sq.m BMI - 45.80 (HIGH) Temperature - 97.9 F (LOW) Pulse - 70 /min Respiration - 26 /min BP - 141/45 mm(hg) (HIGH) O2 Sat - 98 % Pain - 0 Performance Status: 2 - Ambulatory/capable of all self-care, unable to perform any work activities. Up and about more than 50% of waking hours. (ECOG) Physical Examination: ENMT - No mouth sores, no thrush, no jaundice, Respiratory - Lungs are clear to auscultation, Cardiovascular - Regular rate and rhythm of heart s, Abdomen - Soft, bowel sounds present, Extremities - 1+ edema bilaterally. Lab/Imaging: Test performed on Dec 20, 2019 13:21 Sodium 140 mmol/L Potassium 3.6 mmol/L Chloride 100 mmol/L CO2 28 mmol/L Anion Gap 15.6 BUN 15 mg/dL Creatinine 0.9 mg/dL Cr Clearance (Est) 96.49 mL/min Glucose 159 mg/dL Calcium 10.8 mg/dL Protein, Total 6.7 g/dL Albumin 3.7 g/dL Globulin 3.0 g/dL Bilirubin, Total 0.2 mg/dL ALT (SGPT) 8 U/L AST (SGOT) 12 U/L Alkaline Phosphatase 79 IU/L Test performed on Dec 17, 2019 09:40 Magnesium 1.8 mg/dL Test performed on Dec 17, 2019 09:05 WBC 9.9 10 3/uL RBC 3.18 10 6/uL HGB 8.6 g/dL HCT 30.0 % MCV 94.3 fL MCH 27.0 pg MCHC 28.7 g/dL RDW 14.8 % Platelet Count 328 10 3/cmm MPV 9.2 fL Neutrophils 8.0 10 3/uL Lymphocytes 1.1 10 3/uL Monocytes 0.6 10 3/uL Eosinophils 0.1 10 3/uL Basophils 0.1 10 3/uL Neutrophil % 80.3 % Lymphocyte % 10.8 % Monocyte % 6.2 % Eosinophil % 1.4 % Basophils % 0.7 % NRBC % 0 % Test performed on November 19, 2019 07:40 Ferritin 53 ng/mL Iron 73 mcg/dL Iron Binding Capacity (TIBC) 233 mcg/dl % Iron Saturation 31.3 % UIBC 160 mcg/dL Impression: Normocytic normochromic anemia,Due to myelodysplasia per bone marrow done on 11/13/2017 Status post 2 units of packed RBCs on 08/28/2017, and dose of Venofer now on oral iron Status post 2 units of packed RBCs on 10/28/2017 History of iron deficiency anemia with a normal EGD in 2011 and on 08/29/2017 and normal colonoscopy in 2008. Colonoscopy done on 10/09/2017 showed in the proximal ascending colon a small area of angiectasia there was no ongoing bleeding. And descending and sigmoid colon small diverticula but not bleeding and internal hemorrhoids Bone marrow done on 11/13/2017 showed hypercellular bone marrow with red cell hyperplasia and dyspoiesis of red cell precursors and megakaryocytes consistent with a myelodysplasia FISH for MDS negative, flow cytometric and cytogenetic normal. Started on Procrit 60,000 units subcutaneous once a week on 01/14/2018 at that time hemoglobin was 7.9 hematocrit 24.5 Status post Injectafer 750 mg intravenously on May 27 and 2017 Hemoglobin on 06/25/2018 improved to 8.7 from 7.1 prior to the infusion Plan: Discussed with patient regarding her labs white blood count 9.7 hemoglobin 9.8 hematocrit 32.8 platelets 266,000, iron studies shows ferritin 47, iron saturation 22.1%, iron 44, TIBC 199 Clinically, patient is doing well, her follow-up CBC shows her hemoglobin has improved to 9.8 g compared to 8.1 g on February 21, 2020. Patient is on oral iron, tolerating well. We will continue same Patient is scheduled to see Dr. Johnson in [place] for EGD and colonoscopy on April 07, 2020. She will return to clinic in 2 months with CBC, and will follow with her endoscopy reports. Signed By: Rob Gonzales M.D. <<Signature on File>>
== END 2020-03-29 13:15 | disposition home or self-care (01) ==
LOC: ONCMED 13:19
PROVIDERS: PCP Nurse Practitioner Family; Visit Provider Internal Medicine Hematology & Oncology
DX: D50.9 Iron deficiency anemia, unspecified (principal)
CPT/HCPCS: 80053; 85025; G0463

== ENCOUNTER 2020-05-25 12:04 | Outpatient (CLI) | payer MEDICARE, MEDICAID, SELFPAY ==
[2020-05-25 13:10] LABS: Basophils # 0.1 10^3/uL (0.0-0.1); Basophils % 0.4 %; Eosinophils # 0.2 10^3/uL (0.0-0.8); Hematocrit 29.8 % (37.0-47.0); Hemoglobin 9.1 g/dL (11.5-15.3); Mean Corpuscular HGB Conc 30.5 g/dL (30.0-36.0); Mean Corpuscular Hemoglobin 29.4 pg (28.0-34.0); Mean Corpuscular Volume 96.4 fL (81-99); Mean Platelet Volume 10.1 fL (7.4-10.4); Monocytes # 0.7 10^3/uL (0.2-0.9); Monocytes % 4.3 %; Neutrophils # 14.79 10^3/uL (1.8-7.7); Neutrophils % 87.7 %; Nucleated Red Blood Cells % 0 %; Platelet Count 257 10^3/cmm (130-400); Red Blood Count 3.09 10^6/uL (4.1-5.3); Red Cell Distribution Width 14.9 % (12.1-15.1); White Blood Count 16.9 10^3/uL (4.0-10.0)
--- NOTE | 2020-05-25 14:21 | ONC FU_ITS ---
Dr. Gonzales follow up note Patient: Beth Winkler Unit #: [id number]: 1940 Dicatated By: Rob Gonzales M.D.Date of Visit:May 25, 2020 Onc Med Follow-up/Prog Note History of Present Illness: Mrs. Beth Winkler, with long-standing history of iron deficiency anemia for many years , on chronic oral iron supplements recently admitted to hospital on 08/28/2017 with hemoglobin 5.8 hematocrit 19.2 with a normal white blood count and platelets she was given 2 units of packed RBCs with that her hemoglobin gone up to 8.5 on 08/29/2017. , stools were checked for occult blood on 08/30/2017 it came back positive. And underwent EGD which showed no gastritis or ulceration , further anemia workup done on 08/28/2017 showed B12 387, TIBC 396.3, iron 28, folate 12.50. Her bilirubin was 0.2. She was given dose of Venofer Peripheral blood smears done on 08/27/2017 showed marked normocytic anemia, with no schistocytes or spherocytes generalized weakness and fatigue and she did receive 2 units of packed RBC . She also had colonoscopy done on 10/09/2017 as per patient couple of polyps were seen otherwise unremarkable. Underwent bone marrow evaluation on 11/13/2017 which showed hypocellular bone marrow with dyspoiesis of erythrocyte and megakaryocytes. Myelodysplastic syndrome FISH panel was negative. She was given trial of erythropoiesis stimulating agent without much success and finally she was referred to hematology clinic at [facility] she was seen on 02/04/2019 and lab workup done there including B12, was normal at 661, homocystine was 9.3, white blood count 10.1 hemoglobin was 11.5 and platelet count was 306,000 MCV was 89.3. Ferritin was 42 TIBC was 264 saturation was 16%. Haptoglobin was mildly elevated at 254, LDH was normal at 170, folate was more than 20 .Status post Injectafer 750 mg on May 26 and 06/02/2019 Impression was her anemia is multifactorial including secondary iron deficiency and patient being very low risk category for myelodysplastic syndrome and would not consider erythropoietin stimulating agent at this time rather monitor her hemoglobin while on iron supplement and if there is drop in her hemoglobin recommended GI evaluation. Underwent EGD on April 07, [address] 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 Multiple colon polyps status post hot and cold snare polypectomy. Suboptimal bowel prep. 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 Patient denies any melena or hematochezia denies any jaundice, denies any night sweats, denies any recurrent fever or weight loss Medications: Adult Aspirin EC Low Strength 1 (81 mg) Tablet, enteric coated Oral daily, Ascorbic Acid 1 (500 mg) Tablet Oral daily, Cholecalciferol 1 (1000 Units) Tablet Oral b.i.d., Creon 1 (59039 Units) Capsule Delayed Release Particles Oral t.i.d., Demadex 1 (10 mg) Tablet Oral daily, Econazole Nitrate Cream Topical b.i.d., Ferrous Sulfate 1 (325 (65 fe) mg) Tablet Oral daily, Flonase 1 spray(s) (of 50 mcg/act) Suspension Nasal daily, Furosemide 1 Tablet (of 20 mg) Oral daily, Gabapentin 1 Capsule (of 100 mg) Oral at bedtime, Insulin Degludec 30 Units Subcutaneous daily, K-Tab 1 Tablet (of 20 meq) Tablet, controlled release Oral daily, Lisinopril 1 (20 mg) Tablet Oral daily, NovoLOG (100 Units/mL) Subcutaneous Take as Directed, Ocuvite Adult 50+ 1 Capsule Oral daily, Colbert-3 1 (1000 mg) Capsule Oral b.i.d., Pletal 1 (100 mg) Tablet Oral b.i.d., Protonix 1 (40 mg) Tablet, enteric coated Oral daily, Proventil HFA 2 puff(s) (of 108 (90 base) mcg/act) Aerosol, solution Inhalation four times a day Allergies: Alginic Acid, Aluminum Hydroxide Gel, bee sting, Calcium Carbonate, dihydroxyaluminum sodium, Loratadine, Magnesium Carbonate, Magnesium Hydroxide, Simethicone, and Sulfa. Review of Systems: Review of Systems is not available for this patient. Vital Signs: Performed on May 25, 2020 13:17 Height - 62.00 in Weight - 261.2 lbs (HIGH) BSA - 2.14 sq.m BMI - 47.77 (HIGH) Temperature - 98.6 F Pulse - 90 /min Respiration - 24 /min BP - 138/56 mm(hg) O2 Sat - 100 % Pain - 6 Performance Status: 2 - Ambulatory/capable of all self-care, unable to perform any work activities. Up and about more than 50% of waking hours. (ECOG) Physical Examination: ENMT - No mouth sores, no thrush, no jaundice, Respiratory - Lungs are clear to auscultation, Cardiovascular - Regular rate and rhythm of heart, Abdomen - Soft, bowel sounds present, Extremities - No visible edema. Lab/Imaging: Test performed on Mar 29, 2020 13:58 Sodium 137 mmol/L Potassium 3.4 mmol/L Chloride 97 mmol/L CO2 29 mmol/L Anion Gap 14.4 BUN 12 mg/dL Creatinine 0.7 mg/dL Cr Clearance (Est) 118.76 mL/min Glucose 99 mg/dL Osmolality - Calculated 284 mOsm/kg Calcium 10.2 mg/dL Protein, Total 7.2 g/dL Albumin 3.7 g/dL Globulin 3.5 g/dL Bilirubin, Total 0.2 mg/dL ALT (SGPT) 10 U/L AST (SGOT) 17 U/L Alkaline Phosphatase 79 IU/L WBC 9.7 10 3/uL RBC 3.51 10 6/uL HGB 9.8 g/dL HCT 32.8 % MCV 93.4 fL MCH 27.9 pg MCHC 29.9 g/dL RDW 14.6 % Platelet Count 266 10 3/cmm MPV 9.7 fL Neutrophils 7.88 10 3/uL Lymphocytes 1.1 10 3/uL Monocytes 0.5 10 3/uL Eosinophils 0.1 10 3/uL Basophils 0.0 10 3/uL Neutrophil % 81.7 % Lymphocyte % 11.3 % Monocyte % 5.0 % Eosinophil % 1.2 % Basophils % 0.4 % NRBC % 0 % Test performed on Feb 21, 2020 12:30 Ferritin 47 ng/mL Iron 44 mcg/dL Iron Binding Capacity (TIBC) 199 mcg/dl % Iron Saturation 22.1 % UIBC 155 mcg/dL Test performed on Dec 17, 2019 09:40 Magnesium 1.8 mg/dL Impression: Normocytic normochromic anemia,Due to myelodysplasia per bone marrow done on 11/13/2017 Status post 2 units of packed RBCs on 08/28/2017, and dose of Venofer now on oral iron Status post 2 units of packed RBCs on 10/28/2017 History of iron deficiency anemia with a normal EGD in 2011 and on 08/29/2017 and normal colonoscopy in 2008. Colonoscopy done on 10/09/2017 showed in the proximal ascending colon a small area of angiectasia there was no ongoing bleeding. 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 Zachariah Johnson in [place] Chronic decub involving buttock area Bone marrow done on 11/13/2017 showed hypercellular bone marrow with red cell hyperplasia and dyspoiesis of red cell precursors and megakaryocytes consistent with a myelodysplasia FISH for MDS negative, flow cytometric and cytogenetic normal. Started on Procrit 60,000 units subcutaneous once a week on 01/14/2018 at that time hemoglobin was 7.9 hematocrit 24.5 Status post Injectafer 750 mg intravenously on May 27 and 2017 Hemoglobin on 06/25/2018 improved to 8.7 from 7.1 prior to the infusion Plan: Discussed with patient regarding her labs white blood count 16.9 hemoglobin 9.1 hematocrit 29.8 platelets 257,000 Clinically, patient doing reasonably well with no new signs symptoms or follow-up labs shows mild/moderate anemia etiology, appears multifactorial including underlying myelodysplasia/anemia of chronic disease, patient has chronic decubitis involving buttock area and or chronic blood loss as ascending colon showed nonbleeding AVMs, there is a possibility she may have small bowel AVMs which were beyond EGD and colonoscopy evaluation, we will discuss with Dr. Zachariah Johnson regarding role of capsule endoscopy. Patient is taking oral iron tolerating well, patient has well compensated but stable mild to moderate anemia patient not very active physically, will continue to monitor she will return to clinic in 2 months with CBC and iron studies, B12 and reticulocyte count if she has persistent anemia and her iron stores within normal range, will consider trial of erythropoiesis stimulating agent. As far as mild leukocytosis concerned patient has no sign of infection but recently had a steroid injection in the decubitus area, which can cause leukocytosis. Patient was advised in case she starts spiking fever or any symptoms suggestive of infection she need to call us or primary care., Signed By: Rob Gonzales M.D. <<Signature on File>>
== END 2020-05-25 12:05 | disposition home or self-care (01) ==
LOC: ONCMED 12:11
PROVIDERS: PCP Nurse Practitioner Family; Visit Provider Internal Medicine Hematology & Oncology
DX: D64.9 Anemia, unspecified (principal); D72.829 Elevated white blood cell count, unspecified; L89.309 Pressure ulcer of unspecified buttock, unspecified stage; Q27.33 Arteriovenous malformation of digestive system vessel
CPT/HCPCS: 36415; 85025; 99214

== ENCOUNTER 2020-06-29 13:39 | Inpatient (IN) | payer MEDICARE, MEDICAID, SELFPAY ==
[2020-06-29] VITALS (17 sets, daily range): BP systolic 126–171; BP diastolic 56–98; PULSE 83–147; RESP 16–26; TEMP 36.5–36.9; O2SAT 92–100; BMI 52.7
--- NOTE | 2020-06-29 14:28 | XRR_ITS ---
PROCEDURE INFORMATION: Exam: XR Chest, 1 View Exam date and time: 06/29/2020 2:44 PM Age: 80 years old Clinical indication: Shortness of breath; Additional info: Dyspnea TECHNIQUE: Imaging protocol: XR of the chest Views: 1 view. COMPARISON: CR Chest 1 [place] [id number] 04/22/2018 9:32 AM FINDINGS: Lungs: Interstitial congestion is present in the right lower lobe increased since prior examination. The right upper lobe and left lung are otherwise clear Pleural space: Unremarkable. No pleural effusion. No pneumothorax. Heart/Mediastinum: Unremarkable. No cardiomegaly. Bones/joints: Unremarkable. XR/XR chest 1V portable [id number] IMPRESSION: 1. Nonspecific interstitial congestion right lower lobe 2. Otherwise negative chest examination
--- NOTE | 2020-06-29 14:29 | ECG_ITS ---
[facility] Test Date: 2020-06-29 Pat Name: Beth Winkler Department: Room: Gender: Female Field Rep: : 1940 Requested By: Tai Alcantar Order Number: [id number] Leila MD: Livan Edwards M.D. Measurements Intervals [place] Rate: 103 P: 96 MA: 138 QRS: 26 QRSD: 93 T: 79 QT: 351 QTc: 461 Interpretive Statements SINUS TACHYCARDIA WITH OCCASIONAL ECTOPIC PREMATURE COMPLEXES LOW QRS VOLTAGE IN EXTREMITY LEADS [QRS DEFLECTION < 0.5 mV IN LIMB LEADS] POSSIBLE ANTERIOR MYOCARDIAL INFARCTION , OF INDETERMINATE AGE [30 ms Q WAVE IN V3/V4, OR R < 0.2 mV IN V4] Compared to ECG 04/22/2018 16:37:31 Sinus rhythm no longer present Myocardial infarct finding still present Electronically Signed On 06-30-2020 17:57:10 ANESTHESIOLOGIST PHYSICIAN by Livan Edwards M.D. [id number]
--- NOTE | 2020-06-29 14:31 | ED_ITS ---
HPI - General Adult General: Chief complaint: General Medical Stated complaint: wet coughs, sleeping all the time Time Seen by Provider: 06/29/20 14:01 History of Present Illness: HPI narrative: 72-year-old female presents emergency room complaining of productive cough generalized with thick lethargy shortness of breath on exertion for the last several days. She denies any vomiting or diarrhea. No fever. She has a history of COPD and is usually on oxygen at 2-3 L/min. Her oxygen level requirements have not changed. She denies any chest or abdominal pain. Onset (ago): day(s) Location: chest Associated symptoms: Reports cough, dyspnea and malaise; Deny chest pain, confusion, diaphoresis, decreased appetite, fevers/chills, headache(s), nausea, rash, palpitations, seizures, short of breath, syncope or vomiting Review of Systems Const: Reports: malaise; Denies: diaphoresis ENMT: Denies: throat pain, ear or mastoid pain, nasal discharge or nasal congestion Card: Denies: chest pain, palpitations or syncope Resp: Reports: dyspnea GI: Denies: nausea or vomiting : Denies: flank pain, difficulty voiding, dysuria, urinary frequency or urinary urgency Skin/Breast: Denies: rash Neuro: Denies: headache(s) or confusion Physical Exam Const: COMMON NORMALS: no acute distress GENERAL APPEARANCE: cooperative and comfortable ORIENTATION/CONSCIOUSNESS: Yes awake, Yes oriented to person, Yes oriented to place and Yes oriented to time HENMT: COMMON NORMALS: normocephalic, atraumatic, hearing grossly normal bilaterally, external ears normal, EAC's normal, TM's normal bilaterally, Normal nasal mucous membranes and turbinates present, moist oral mucous membranes and oropharynx normal HEAD & SCALP: normocephalic and atraumatic NOSE: Normal nasal mucous membranes and turbinates present EXTERNAL EAR: Yes external ears normal EXTERNAL AUDITORY CANAL: EAC's normal TYMPANIC MEMBRANE: TM's normal bilaterally Eye: COMMON NORMALS: Equal, round and reactive pupils present, EOMs intact bilaterally, conjunctivae normal and no scleral icterus CONJUNCTIVA: Yes conjunctivae normal PUPIL: Yes Equal, round and reactive pupils present Neck/C-Spine: COMMON NORMALS: full ROM, no lymphadenopathy, supple and no JVD Lymph: LYMPHATIC: no lymphadenopathy noted and no lymphedema noted Resp: AUSCULTATION: wheezes Cardio: COMMON NORMALS: no JVD, regular rate, regular rhythm and No murmurs present (Cardio) RATE: regular rate RHYTHM: regular rhythm GI: COMMON NORMALS: Soft to palpation and No hepatosplenomegaly present AUSCULTATION: Yes normoactive bowel sounds PALPATION: Yes Soft to palpation, No Tenderness to palpation present (GI), No Guarding due to palpation present (GI) and Yes No hepatosplenomegaly present Extremity: COMMON NORMALS: normal to inspection, capillary refill normal, no clubbing, cyanosis or edema, no calf tenderness and no pedal edema Neuro: SENSORIUM/ORIENTATION: Yes oriented to person, Yes oriented to place and Yes oriented to time Skin: COMMON NORMALS: no rashes or lesions noted GENERAL SKIN EXAM: no rashes or lesions noted Course Vital Signs: Vital signs: Vital Signs Temperature 98.5 F 06/29/20 13:48 Pulse Rate 140 H 06/29/20 16:53 Respiratory Rate 19 H 06/29/20 16:53 Blood Pressure 126/85 06/29/20 16:53 Pulse Oximetry 96 06/29/20 16:53 MDM - General Adult MDM Narrative: Medical decision making narrative: Patient has a right lower lobe pneumonia as well as hypokalemia she also had an episode of A. fib with RVR but she converted with a Valsalva maneuver will admit her replace her potassium and treat her pneumonia discussed Dr. Londono Lab Data: Labs: Lab Results 06/29/20 06/29/20 06/29/20 Range/Units 14:50 14:50 14:50 WBC 5.4 (4.0-10.0) 10^3/ uL RBC 3.37 L (4.1-5.3) 10^6/u L Hgb 9.4 L (11.5-15.3) g/dL Hct 30.8 L (37.0-47.0) % MCV 91.4 (81-99) fL MCH 27.9 L (28.0-34.0) pg MCHC 30.5 (30.0-36.0) g/dL RDW 15.2 H (12.1-15.1) % Plt Count 253 (130-400) 10^3/c mm MPV 10.5 H (7.4-10.4) fL Neut % (Auto) 80.0 % Lymph % (Auto) 12.2 % [place] % (Auto) 6.3 % Eos % (Auto) 0.2 % Baso % (Auto) 0.4 % Neut # (Auto) 4.31 (1.8-7.7) 10^3/u L Lymph # (Auto) 0.7 L (0.8-4.8) 10^3/u L [place] # (Auto) 0.3 (0.2-0.9) 10^3/u L Eos # (Auto) 0.0 (0.0-0.8) 10^3/u L Baso # (Auto) 0.0 (0.0-0.1) 10^3/u L Nucleated RBC % (a uto) 0.4 % Nucleated RBCs # 0.0 /100WBC D-Dimer > 0.00 (0-0.59) ug/mIFE U Sodium 141 (136-145) mmol/L Potassium 2.8 L* (3.5-5.1) mmol/L Chloride 96 L (98-107) mmol/L Carbon Dioxide 35 H (22-29) mmol/L Anion Gap 12.8 (5-19) BUN 24 H (8-23) mg/dL Creatinine 1.1 H (0.5-0.9) mg/dL GFR Calculation Not Reportable Glucose 45 L (65-115) mg/dL Calculated Osmolal ity 293 (285-295) mOsm/k g Lactic Acid (0.5-2.2) mmol/L Calcium 10.0 (8.5-10.5) mg/dL Total Bilirubin 0.3 (0.15-1.2) mg/dL AST 22 (0-32) U/L ALT 12 (0-33) U/L Alkaline Phosphata se 66 (35-105) IU/L Troponin T Baselin e (0-10) ng/L Troponin T 120 Min three affiliated (0-10) ng/L Delta Troponin T (0-10) ABS# C-Reactive Protein 77.8 H (0.0-4.9) mg/L Total Protein 6.3 L (6.6-8.7) g/dL Albumin 3.5 (3.5-5.2) g/dL Globulin 2.8 (1.3-4.6) g/dL Nasal/Oral COVID-1 9 PCR SARS-CoV-2 Ag (Rap id) (Negative) 06/29/20 06/29/20 06/29/20 Range/Units 14:50 14:50 14:50 WBC (4.0-10.0) 10^3/ uL RBC (4.1-5.3) 10^6/u L Hgb (11.5-15.3) g/dL Hct (37.0-47.0) % MCV (81-99) fL MCH (28.0-34.0) pg MCHC (30.0-36.0) g/dL RDW (12.1-15.1) % Plt Count (130-400) 10^3/c mm MPV (7.4-10.4) fL Neut % (Auto) % Lymph % (Auto) % [place] % (Auto) % Eos % (Auto) % Baso % (Auto) % Neut # (Auto) (1.8-7.7) 10^3/u L Lymph # (Auto) (0.8-4.8) 10^3/u L [place] # (Auto) (0.2-0.9) 10^3/u L Eos # (Auto) (0.0-0.8) 10^3/u L Baso # (Auto) (0.0-0.1) 10^3/u L Nucleated RBC % (a uto) % Nucleated RBCs # /100WBC D-Dimer (0-0.59) ug/mIFE U Sodium (136-145) mmol/L Potassium (3.5-5.1) mmol/L Chloride (98-107) mmol/L Carbon Dioxide (22-29) mmol/L Anion Gap (5-19) BUN (8-23) mg/dL Creatinine (0.5-0.9) mg/dL GFR Calculation Glucose (65-115) mg/dL Calculated Osmolal ity (285-295) mOsm/k g Lactic Acid 2.1 (0.5-2.2) mmol/L Calcium (8.5-10.5) mg/dL Total Bilirubin (0.15-1.2) mg/dL AST (0-32) U/L ALT (0-33) U/L Alkaline Phosphata se (35-105) IU/L Troponin T Baselin e 56 H (0-10) ng/L Troponin T 120 Min three affiliated (0-10) ng/L Delta Troponin T (0-10) ABS# C-Reactive Protein (0.0-4.9) mg/L Total Protein (6.6-8.7) g/dL Albumin (3.5-5.2) g/dL Globulin (1.3-4.6) g/dL Nasal/Oral COVID-1 9 PCR SARS-CoV-2 Ag (Rap id) Negative (Negative) 06/29/20 06/29/20 Range/Units 16:45 16:58 WBC (4.0-10.0) 10^3/ uL RBC (4.1-5.3) 10^6/u L Hgb (11.5-15.3) g/dL Hct (37.0-47.0) % MCV (81-99) fL MCH (28.0-34.0) pg MCHC (30.0-36.0) g/dL RDW (12.1-15.1) % Plt Count (130-400) 10^3/c mm MPV (7.4-10.4) fL Neut % (Auto) % Lymph % (Auto) % [place] % (Auto) % Eos % (Auto) % Baso % (Auto) % Neut # (Auto) (1.8-7.7) 10^3/u L Lymph # (Auto) (0.8-4.8) 10^3/u L [place] # (Auto) (0.2-0.9) 10^3/u L Eos # (Auto) (0.0-0.8) 10^3/u L Baso # (Auto) (0.0-0.1) 10^3/u L Nucleated RBC % (a uto) % Nucleated RBCs # /100WBC D-Dimer (0-0.59) ug/mIFE U Sodium (136-145) mmol/L Potassium (3.5-5.1) mmol/L Chloride (98-107) mmol/L Carbon Dioxide (22-29) mmol/L Anion Gap (5-19) BUN (8-23) mg/dL Creatinine (0.5-0.9) mg/dL GFR Calculation Glucose (65-115) mg/dL Calculated Osmolal ity (285-295) mOsm/k g Lactic Acid (0.5-2.2) mmol/L Calcium (8.5-10.5) mg/dL Total Bilirubin (0.15-1.2) mg/dL AST (0-32) U/L ALT (0-33) U/L Alkaline Phosphata se (35-105) IU/L Troponin T Baselin e (0-10) ng/L Troponin T 120 Min three affiliated 53.44 H (0-10) ng/L Delta Troponin T -2.56 L (0-10) ABS# C-Reactive Protein (0.0-4.9) mg/L Total Protein (6.6-8.7) g/dL Albumin (3.5-5.2) g/dL Globulin (1.3-4.6) g/dL Nasal/Oral COVID-1 9 PCR Cancelled SARS-CoV-2 Ag (Rap id) (Negative) Discharge Plan Discharge Patient Disposition: Admitted As Inpatient Clinical Impression: Pneumonia, Acute hypokalemia Condition: Stable Coding Level of Care Code 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
--- NOTE | 2020-06-29 15:07 | PC.NURSE ---
EKG done at 1500 and shown to ER doctor
[2020-06-29 15:14] LABS: Basophils % 0.4 %; Eosinophils % 0.2 %; Hematocrit 30.8 % (37.0-47.0); Hemoglobin 9.4 g/dL (11.5-15.3); Lymphocytes # 0.7 10^3/uL (0.8-4.8); Lymphocytes % 12.2 %; Mean Corpuscular HGB Conc 30.5 g/dL (30.0-36.0); Mean Corpuscular Hemoglobin 27.9 pg (28.0-34.0); Mean Corpuscular Volume 91.4 fL (81-99); Mean Platelet Volume 10.5 fL (7.4-10.4); Monocytes # 0.3 10^3/uL (0.2-0.9); Monocytes % 6.3 %; Neutrophils # 4.31 10^3/uL (1.8-7.7); Nucleated Red Blood Cells % 0.4 %; Platelet Count 253 10^3/cmm (130-400); Red Blood Count 3.37 10^6/uL (4.1-5.3); Red Cell Distribution Width 15.2 % (12.1-15.1); White Blood Count 5.4 10^3/uL (4.0-10.0)
[2020-06-29 15:39] LABS: Lactic Sepsis W/Reflex 2.1 mmol/L (0.5-2.2)
[2020-06-29 15:40] LABS: Alanine Aminotransferase 12 U/L (0-33); Albumin Level 3.5 g/dL (3.5-5.2); Alkaline Phosphatase 66 IU/L (35-105); Anion Gap 12.8 (5-19); Aspartate Amino Transferase 22 U/L (0-32); Blood Urea Nitrogen 24 mg/dL (8-23); C Reactive Protein 77.8 mg/L (0.0-4.9); Carbon Dioxide 35 mmol/L (22-29); Chloride 96 mmol/L (98-107); Globulin 2.8 g/dL (1.3-4.6); Glucose 45 mg/dL (65-115); Osmolality Calculated 293 mOsm/kg (285-295); Sodium 141 mmol/L (136-145); Total Bilirubin 0.3 mg/dL (0.15-1.2); Total Protein 6.3 g/dL (6.6-8.7)
[2020-06-29 15:42] LABS: Troponin(5th) Baseline 56 ng/L (0-10)
[2020-06-29 15:48] LABS: Potassium 2.8 mmol/L (3.5-5.1)
[2020-06-29 16:03] LABS: SARS Covid-2 Antigen Negative (Negative)
--- NOTE | 2020-06-29 16:29 | ECG_ITS ---
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 Measurements Intervals [place] Rate: 147 P: PA: QRS: 125 QRSD: 96 T: 60 QT: 196 QTc: 307 Interpretive Statements ATRIAL FLUTTER WITH RAPID VENTRICULAR RESPONSE WITH ABERRANT CONDUCTION OR VENTRICULAR PREMATURE COMPLEXES RIGHT AXIS DEVIATION [QRS AXIS > 100] LOW QRS VOLTAGE IN EXTREMITY LEADS [QRS DEFLECTION < 0.5 mV IN LIMB LEADS] POSSIBLE ANTERIOR MYOCARDIAL INFARCTION , PROBABLY OLD [30 ms Q WAVE IN V3/V4, OR R < 0.2 mV IN V4] ST DEPRESSION, CONSIDER SUBENDOCARDIAL INJURY [0.1+ mV ST DEPRESSION] Compared to ECG 06/29/2020 14:58:35 Ventricular premature complex(es) now present Aberrant conduction of supraventricular beat(s) now present Right-axis deviation now present ST (T wave) deviation now present Sinus tachycardia no longer present Myocardial infarct finding still present Electronically Signed On 07-02-2020 11:24:07 DESKTOP OPERATOR by Livan Edwards M.D. [id number]
--- NOTE | 2020-06-29 16:40 | PC.NURSE ---
EKG done at 1635 and shown to ER doctor
[2020-06-29] MEDS: levofloxacin-dextrose 5 % 750 MG/150 ML PREMIX 100 MG IV (16:52)
[2020-06-29] MEDS: lidocaine 1% 5 ML in potassium chloride premix 100 ML 25 ML IV (16:52)
[2020-06-29 16:58] LABS: Reflex Lactate Order REFLEX LACTIC ORDERD
[2020-06-29 17:34] LABS: Troponin 5 2HR 53.44 ng/L (0-10)
[2020-06-29 17:39] LABS: Troponin 5 2HR Delta -2.56 ABS# (0-10)
--- NOTE | 2020-06-29 18:29 | P.HP_ITS ---
Providers/Chief Complaint Primary Care Provider: Ana Vega Chief Complaint: wet coughs, sleeping all the time History of Present Illness Beth Winkler is a 80 year old female WIth PMH of COPD on 2 Ls oxygen at home, DM, PVD, H.F was admitted with c/o worsening SOB for the last several days as well as worsening Productive cough.She is also complaining of worsening nasal congestion.Currently deny any Chest pain, fever,headache, nausea,vomiting,diarrhea,abdominal pain,urinary complain. Upon arrival in the ER she was worked up for the above mentioned complains. Xray chest : Nonspecific interstitial congestion right lower lobe. D-DIMER : Negative, BUN/SCR: 24/1.1 , K:2.8 Troponin: Baseline : 56, 2h : 53, delta 2 h: -2.56. Blood Sugar:45. EKG :A.fib with RVR. ECA Medications: 40 MEQ I.V Pottasium as well as 40 MEQ Oral K and she was started on Diltiazem drip. Review of Systems Const: Denies: fever(s) or chills Card: Denies: edema Resp: Denies: pain on inspiration GI: Denies: abdominal pain, nausea, vomiting, diarrhea or constipation : Denies: flank pain Musc: Denies: back pain, extremity pain or extremity swelling Neuro: Denies: headache(s), difficulty walking or confusion Medications/Allergies Home Medications Medication Instructions Recorded Confirmed Last Taken Type albuterol sulfate 2 puff INHALATION Q6H PRN 06/29/20 06/29/20 Unknown History aspirin 81 mg PO DAILY 06/29/20 06/29/20 06/29/20 History atorvastatin 20 mg PO BEDTIME 06/29/20 06/29/20 06/28/20 History cefdinir 300 mg PO BID 06/29/20 06/29/20 06/29/20 History cilostazol 100 mg PO BID 06/29/20 06/29/20 06/29/20 History clonidine HCl 0.1 mg PO BID 06/29/20 06/29/20 06/29/20 History fluticasone propionate 1 spray INTRANASAL DAILY 06/29/20 06/29/20 06/28/20 History gabapentin 100 mg PO BEDTIME 06/29/20 06/29/20 06/28/20 History insulin glargine [Basaglar KwikPen 75 unit SUBCUT BID 06/29/20 06/29/20 06/29/20 History U-100 Insulin] insulin lispro [Humalog KwikPen See Rx Instructions .ROUTE .COMPLEX 06/29/20 1 08/30/19 Unknown History Insulin] latanoprost 1 drp OPHTHALMIC (EYE) BEDTIME 06/29/20 06/29/20 06/28/20 History fjvlrg-iabwitjv-rfkwzdl [Creon] 2 cap PO TID 06/29/20 06/29/20 06/29/20 History mupirocin 1 applic TOPICAL DAILY 06/29/20 06/29/20 Unknown History pantoprazole 40 mg PO DAILY 06/29/20 06/29/20 06/29/20 History torsemide 20 mg PO BID 06/29/20 06/29/20 06/29/20 History umeclidinium-vilanterol [Anoro 2 ea INHALATION DAILY 06/29/20 06/29/20 06/28/20 History Ellipta] Allergies Allergy/AdvReac Type Severity Reaction Status Date / Time doxycycline Allergy Unknown Verified 06/29/20 20:26 Sulfa (Sulfonamide Allergy ALGY-Rash Verified 06/29/20 20:24 Antibiotics) Vitals/I&O/Wt Last Vital Signs Temp 98.5 F 06/29/20 13:48 Pulse 140 H 06/29/20 16:53 Resp 19 H 06/29/20 16:53 BP 126/85 06/29/20 16:53 Pulse Ox 96 06/29/20 16:53 Weight last 48 hrs Weight 118.388 kg Physical Exam Const: COMMON NORMALS: patient oriented x3 HENMT: COMMON NORMALS: normocephalic and atraumatic HEAD & SCALP: normocephalic and atraumatic EXTERNAL EAR: Yes external ears normal Chest: COMMONS NORMALS: normal inspection of the chest CHEST: Yes Symm etrical chest wall rise Resp: COMMON NORMALS: normal respiratory effort OTHER: B/L Coarse Breath sound present with ronchii no crackles appreciated. Cardio: COMMON NORMALS: regular rate, regular rhythm, S1 normal heart sound present, S2 normal heart sound present, No gallops present (Cardio), No murmurs present (Cardio), No rub (Cardio) and Peripheral pulses 2+ throughout RATE: regular rate RHYTHM: regular rhythm HEART SOUNDS: S1 normal heart sound present and S2 normal heart sound present PERIPHERAL PULSES: Peripheral pulses 2+ throughout GI: COMMON NORMALS: Normal to inspection, nondistended, normoactive bowel sounds present, Soft to palpation, non-tender, No hepatosplenomegaly present and no masses AUSCULTATION: Yes normoactive bowel sounds PALPATION: Yes Soft to palpation and Yes No hepatosplenomegaly present RECTAL EXAM: deferred Extremity: NARRATIVE EXTREMITY EXAM: Trace B/L L/E Pitting Edema Neuro: COMMON NORMALS: patient oriented x3 Data : 06/29/20 14:50 06/29/20 14:50 A&P Assessment and plan (1) Atrial fibrillation with RVR: New Onset A.fIB Currently in RVR. 2D Echo Continue Cardizem drip. Will initiate PO medications. Eliquis 2.5 mg po q12 h daily Status: Acute (2) Pneumonia: Continue Cef and Azith Status: Acute (3) COPD (chronic obstructive pulmonary disease): Neb Solumedrol 40 mg I.V Daily Cef and Georgette Supplemental oxygen to maintain SPO2 90 % Status: Acute (4) Acute hypokalemia: Replete K. Status: Acute (5) Diabetes: Lantus and LDSSI Status: Acute (6) Heart failure: 2D Echo Lasix 40 mg I.V Daily Status: Acute (7) Anemia: Has been worked up extensively as outpatient. Most recent EGD: Gastitis, Colonscopy : AVM S/P APC Monitor CBC Continue Ferrous sulfate. Status: Acute (8) Sleep apnea: Status: Acute (9) PAD (peripheral artery disease): Status: Acute Additional A&P Information DVT PPX: Not needed on eliquis CoDE Status :Full code Attestations Medical Necessity Statement*: Patient needs to be hospital for the management of A.Fib with RVR, PNA,COPD Exacerbation Coding Level of Care Code Acute Gas Producer for [facility] Fwd Diagnoses Atrial fibrillation with RVR I48.91 Pneumonia J18.9 COPD (chronic obstructive pulmonary disease) J44.9 Acute hypokalemia E87.6 Diabetes E11.9 Heart failure I50.9 Anemia D64.9 Sleep apnea G47.30 PAD (peripheral artery disease) I73.9
[2020-06-29] MEDS: potassium chloride oral liq 20 mEq/15 mL UDC 40 MEQ PO (18:56)
[2020-06-29] MEDS: cefTRIAXone 1,000 MG in sodium chloride 0.9% (plus) 50 ML 100 MG IV (19:30)
[2020-06-29] MEDS: azithromycin 500 MG in sodium chloride 0.9% 250 ML 250 MG IV (20:30)
[2020-06-29 20:52] LABS: Glucose Point of Care 98 mg/dL (70-110)
[2020-06-29] MEDS: atorvastatin 40 mg Tablet 20 MG PO (21:13)
[2020-06-29] MEDS: apixaban 5 mg Tablet 2.5 MG PO (21:14)
[2020-06-29] MEDS: gabapentin 100 mg Capsule PO (21:17)
[2020-06-29] MEDS: latanoprost 0.005% Op Soln 2.5 mL Btl 1 DROP EYE-BOTH (21:19)
[2020-06-30] VITALS (49 sets, daily range): BP systolic 117–174; BP diastolic 50–103; PULSE 83–110; RESP 12–32; TEMP 36.3–36.5; O2SAT 95–100
[2020-06-30] MEDS: albuterol 8 gm MDI 2 PUFF INHALATION ×3 (02:24→22:00)
[2020-06-30 03:23] LABS: D Dimer 1.38 ug/mIFEU (0-0.59)
[2020-06-30 04:46] LABS: Basophils % 0.4 %; Hematocrit 28.1 % (37.0-47.0); Hemoglobin 8.3 g/dL (11.5-15.3); Lymphocytes # 0.5 10^3/uL (0.8-4.8); Lymphocytes % 10.3 %; Mean Corpuscular HGB Conc 29.5 g/dL (30.0-36.0); Mean Corpuscular Hemoglobin 27.8 pg (28.0-34.0); Mean Platelet Volume 10.6 fL (7.4-10.4); Monocytes # 0.1 10^3/uL (0.2-0.9); Neutrophils # 4.42 10^3/uL (1.8-7.7); Neutrophils % 87.1 %; Nucleated Red Blood Cells % 0 %; Platelet Count 277 10^3/cmm (130-400); Red Blood Count 2.99 10^6/uL (4.1-5.3); Red Cell Distribution Width 15.1 % (12.1-15.1); White Blood Count 5.1 10^3/uL (4.0-10.0)
[2020-06-30 04:59] LABS: Slide Review Slide Review Perform
[2020-06-30 05:13] LABS: NT Pro B Type Natriuretic Pept 674 pg/mL (0-450); Procalcitonin 0.11 ng/mL (0-0.5); Thyroid Stimulating Hormone 1.41 uIU/mL (0.27-4.20)
[2020-06-30 05:25] LABS: Alanine Aminotransferase 10 U/L (0-33); Albumin Level 3.5 g/dL (3.5-5.2); Alkaline Phosphatase 63 IU/L (35-105); Anion Gap 14.3 (5-19); Aspartate Amino Transferase 17 U/L (0-32); Blood Urea Nitrogen 24 mg/dL (8-23); Calcium 9.8 mg/dL (8.5-10.5); Carbon Dioxide 33 mmol/L (22-29); Chloride 97 mmol/L (98-107); Globulin 3.5 g/dL (1.3-4.6); Glucose 190 mg/dL (65-115); Magnesium 1.7 mg/dL (1.7-2.3); Osmolality Calculated 299 mOsm/kg (285-295); Potassium 4.3 mmol/L (3.5-5.1); Sodium 140 mmol/L (136-145); Total Bilirubin 0.3 mg/dL (0.15-1.2)
[2020-06-30 07:24] LABS: Glucose Point of Care 255 mg/dL (70-110)
[2020-06-30 07:24] LABS: Glucose Point of Care 225 mg/dL (70-110)
[2020-06-30] MEDS: FUROsemide 10 mg/mL SDV 4mL 40 MG IVP (08:00)
[2020-06-30] MEDS: lipase-protease-amylase Capsule 2 EACH PO ×3 (08:02→17:40)
[2020-06-30] MEDS: fluticasone nasal spray 16gm Btl 1 SPRAY INTRANASAL (08:34)
[2020-06-30] MEDS: apixaban 5 mg Tablet 2.5 MG PO ×2 (08:35→17:20)
[2020-06-30] MEDS: cilostazol 100 mg Tablet PO ×2 (08:35→17:20)
[2020-06-30] MEDS: pantoprazole DR 40 mg Tablet PO (08:35)
[2020-06-30] MEDS: cloNIDine 0.1 mg Tablet PO ×2 (08:35→17:20)
[2020-06-30] MEDS: aspirin 81 mg Chew Tablet PO (08:35)
--- NOTE | 2020-06-30 09:47 | PC.CHAP ---
Pastoral Care Encounter/Spiritual Assessment Type of Contact [] Declined director of front office visit [] Patient/Family/Request visit [] Outpatient visit [] Follow-up visit [] Physician referral [] Code/Alert [] Routine visit [] Staff referral [] Actively dying [] Patient sleeping [] Family support [] [] Out of room [] Palliative care [] [] Receiving care in room [] Pre-surgical visit [] Trauma [] Long length of stay [x] ICU visit [] Other: Relational/Emotional Strength [] Patient feels connected with others/family/visitors/staff [] Distress [] Loneliness/isolation [] Abandonment Spirituality of Patient [] Person of Lesa [] Attends Cheondoism of their Lesa [] Believes in Prayer [] Reads Bible or Faith materials [] There are Spiritual issues to be addressed Lining Strap Closer Interventions [x] Prayer [] Active listening [] Non-anxious presence [] Spiritual/emotional support [] Crisis/trauma care [] Spiritual counseling [] Bereavement support [] Provided bereavement packet [] Provided Bible/devotional materials [] Provided toy/stuffed animal, coloring book to patient or family member [] Provided Communion [] Anointing/Hull [] Salvation [x] Completed spiritual assessment [] Other: Impact on Illness or Injury [] Angry [] Fearful [] Anxious [] Often cries [] Exhaustion [] Unable to work [] Unable to attend yazdanism [] Unable to walk/stand [] Unable to read [] Unable to drive [] Unable to eat/drink [] Unable to sleep [] Unable to be with family [] Patient intubated [] Other: Summary Time spent with patient
[2020-06-30 11:59] LABS: Glucose Point of Care 349 mg/dL (70-110)
--- NOTE | 2020-06-30 12:20 | PM.PN ---
Subjective Subjective: Interval history: No acute event overnight.Deny an SOB , chest pain, tolerating diet well. Has remained afebrile,supplemental oxygen requirement is coming down,currently at baseline oxygen requirement. Off cardizem drip. Medications: Reviewed: Yes Vitals/I&O/Wt Last Vital Signs Temp 97.7 F 06/30/20 08:00 Pulse 87 06/30/20 11:07 Resp 16 06/30/20 11:06 BP 136/60 06/30/20 08:00 Pulse Ox 97 06/30/20 11:06 06/29/20 06/30/20 06/30/20 22:59 06:59 14:59 Intake Total 300 / 300 350 / 350 Output Total 500 / 500 Balance -200 / -200 350 / 350 Weight last 48 hrs Weight 102.285 kg Weight 118.388 kg Physical Exam Const: COMMON NORMALS: patient oriented x3 HENMT: COMMON NORMALS: normocephalic and atraumatic HEAD & SCALP: normocephalic and atraumatic Chest: CHEST: Yes Symmetrical chest wall rise Resp: COMMON NORMALS: normal respiratory effort and clear to auscultation bilaterally EFFORT & INSPECTION: Yes symmetric chest movement AUSCULTATION: clear to auscultation bilaterally Cardio: COMMON NORMALS: regular rate, regular rhythm, S1 normal heart sound present, S2 normal heart sound present, No gallops present (Cardio), No murmurs present (Cardio), No rub (Cardio) and Peripheral pulses 2+ throughout RATE: regular rate RHYTHM: regular rhythm HEART SOUNDS: S1 normal heart sound present and S2 normal heart sound present PERIPHERAL PULSES: Peripheral pulses 2+ throughout GI: COMMON NORMALS: Normal to inspection, nondistended, normoactive bowel sounds present, Soft to palpation, non-tender, No hepatosplenomegaly present and no masses AUSCULTATION: Yes normoactive bowel sounds PALPATION: Yes Soft to palpation and Yes No hepatosplenomegaly present RECTAL EXAM: deferred Extremity: COMMON NORMALS: no clubbing, cyanosis or edema and no pedal edema Neuro: COMMON NORMALS: patient oriented x3 Data : 06/30/20 03:47 06/30/20 03:48 A&P Assessment and plan (1) Atrial fibrillation with RVR: New Onset A.fIB .Admitted with RVR .Currently rate controlled Cardizem drip was stopped. Currently on Meoprolol .T 25Mg q12 h daily Eliquis 2.5 mg po q12 h daily. 2D Echo: LV systolic function is normal with EF of 55 to 60%. Diastolic function is abnormal. Thickened aortic and mitral valves. Moderate mitral stenosis by mean gradient. There is discrepancy between mitral valve area by pressure half-time (not showing significant mitral stenosis )and mean gradient across mitral valve. Patient will need a graphic follow-up of mitral valve in future. There is mild mitral regurgitation, trace aortic regurgitation and mild pulmonic regurgitation. Mild aortic stenosis is present. Status: Acute (2) Pneumonia: Continue Cef and Azith Status: Acute (3) COPD (chronic obstructive pulmonary disease): Neb Solumedrol 40 mg I.V Daily Cef and Georgette Supplemental oxygen to maintain SPO2 90 % Status: Acute (4) Acute hypokalemia: Replete K. Status: Acute (5) Diabetes: Lantus and LDSSI Status: Acute (6) Heart failure: Continue Lasix 40 mg I.V Daily Status: Acute (7) Anemia: Has been worked up extensively as outpatient. Most recent EGD: Gastitis, Colonscopy : AVM S/P APC Monitor CBC Continue Ferrous sulfate. Status: Acute (8) Sleep apnea: Continue CPAP. Status: Acute (9) PAD (peripheral artery disease): Status: Acute Additional A&P Information DVT PPX: Not needed on eliquis CoDE Status :Full code Attestations Medical Necessity Statement*: Patient needs o be in hospital for the management of PNA.R/O COVID Coding Level of Care Code Acute Quality Assurance Monitor Final for [facility] Fwd Diagnoses Atrial fibrillation with RVR I48.91 Pneumonia J18.9 COPD (chronic obstructive pulmonary disease) J44.9 Acute hypokalemia E87.6 Diabetes E11.9 Heart failure I50.9 Anemia D64.9 Sleep apnea G47.30 PAD (peripheral artery disease) I73.9
[2020-06-30 17:06] LABS: Glucose Point of Care 444 mg/dL (70-110)
[2020-06-30] MEDS: azithromycin 500 MG in sodium chloride 0.9% 250 ML 200 MG IV (17:39)
[2020-06-30] MEDS: cefTRIAXone 1,000 MG in sodium chloride 0.9% (plus) 50 ML 100 MG IV (19:59)
--- NOTE | 2020-06-30 20:27 | USCV_ITS ---
Beth Winkler Age: 80 Gender: F : 1940 Exam Date: 06/30/2020 05:49 Ordering Phys: Jhonatan Londono MD Technologist: Ivone Morales Exam Location: [facility] [place] Indication: SOB COVID BP: 153 / 65 HR: 89 Rhythm: Sinus Technical Quality: Adequate MEASUREMENTS (Male / Female) Normal Values 2D ECHO LV Diastolic Diameter PLAX 5.4 cm 4.2 - 5.9 / 3.9 - 5.3 cm LV Systolic Diameter PLAX 3.0 cm LV Chamber Size 3.6 cm IVS Diastolic Thickness 1.4 cm 0.6 - 1.0 / 0.6 - 0.9 cm IVS Systolic Thickness 2.0 cm LVPW Diastolic Thickness 1.4 cm 0.6 - 1.0 / 0.6 - 0.9 cm LVPW Systolic Thickness 1.8 cm RV Chamber Size 3.2 cm LVOT Diameter 2.1 cm LV Ejection Fraction 2D Teich 73.9 % LV Ejection Fraction MOD 2C 54.7 % LV Ejection Fraction 2C AL 54.7 % LA Diameter 4.1 cm LA Width 3.2 cm LA Height 5.3 cm RA Width 3.9 cm RA Height 5.2 cm Aorta at Sinotubular Diameter 2.9 cm M-MODE LV Diastolic Diameter MM 4.7 cm 4.2 - 5.9 / 3.9 - 5.3 cm LV Systolic Diameter MM 2.8 cm LV Ejection Fraction MM Teich 70.7 % IVS Diastolic Thickness MM 1.3 cm 0.6 - 1.0 / 0.6 - 0.9 cm IVS Systolic Thickness MM 1.8 cm LVPW Diastolic Thickness MM 1.3 cm 0.6 - 1.0 / 0.6 - 0.9 cm LVPW Systolic Thickness MM 2.0 cm RV Diastolic Diameter MM 2.2 cm Aortic Annulus Diameter 3.1 cm LA Ao Ratio MM 1.6 MV E Point Septal Separation 0.9 cm DOPPLER AV Peak Velocity 208.0 cm/s LVOT Peak Velocity 86.0 cm/s AV Area Cont Eq vti 1.8 cm squared AV Area Cont Eq pk 1.5 cm squared MV Area PHT 3.1 cm squared Mitral E to A Ratio 1.4 MV E' Velocity 134.0 cm/s Mitral E to MV E' Ratio 27.3 Mitral E to LV E' Lateral Ratio 23.4 Mitral E to LV E' Septal Ratio 33.4 TR Peak Velocity 227.3 cm/s TR Peak Gradient 20.7 mmHg TR Mean Velocity 172.9 cm/s TR Mean Gradient 13.7 mmHg TR Velocity Time Integral 56.2 cm TV Peak E Velocity 86.0 cm/s Right Atrial Pressure 8.0 mmHg Pulmonary Artery Systolic Pressu 28.7 mmHg PV Peak Velocity 76.0 cm/s RV Acceleration Time 0.2 s RV Ejection Time 0.4 s RV AcT/ET 0.5 FINDINGS Left Ventricle Normal left ventricular size and systolic function with no regional wall motion abnormalities. LVEF is 55 to 60%. Function is abnormal. Right Ventricle The right ventricle is normal in size and function. Right Atrium The right atrium is normal in size. Left Atrium The left atrium is normal in size. Mitral Valve Mitral valve is thickened. It is not very well visualized. Mild mitral regurgitation is noted. There is moderate mitral stenosis noted with mean pressure gradient of 7.5 mmHg. There is discrepancy between mitral valve area by pressure half-time (does not show stenosis) and mean gradient (showing moderate mitral stenosis). Aortic Valve Aortic valve is thickened. There is mild aortic stenosis. There is trace aortic regurgitation. Tricuspid Valve Structurally normal tricuspid valve without significant stenosis or regurgitation. Insufficient TR jet to calculate RVSP. Pulmonic Valve Structurally normal pulmonic valve without significant stenosis. There is mild pulmonic regurgitation. Pericardium Normal pericardium without effusion. Aorta Normal ascending aorta dimension. CONCLUSIONS This is technically difficult study because of poor ultrasonic windows. LV systolic function is normal with EF of 55 to 60%. Diastolic function is abnormal. Thickened aortic and mitral valves. Moderate mitral stenosis by mean gradient. There is discrepancy between mitral valve area by pressure half-time (not showing significant mitral stenosis )and mean gradient across mitral valve. Patient will need a graphic follow-up of mitral valve in future There is mild mitral regurgitation, trace aortic regurgitation and mild pulmonic regurgitation. Mild aortic stenosis is present Compared to prior study from 05/28/2013, moderate mitral stenosis is now present. Livan Edwards MD (Electronically Signed) Final Date: 30 June 2020 12:19 S
[2020-06-30 20:56] LABS: Glucose Point of Care 483 mg/dL (70-110)
[2020-06-30] MEDS: insulin glargine 100 units/1 mL 50 UNIT SUBCUT (21:13)
[2020-06-30] MEDS: gabapentin 100 mg Capsule PO (21:13)
[2020-06-30] MEDS: atorvastatin 40 mg Tablet 20 MG PO (21:13)
[2020-06-30] MEDS: metoprolol tartrate 25 mg Tablet PO (21:13)
[2020-06-30] MEDS: latanoprost 0.005% Op Soln 2.5 mL Btl 1 DROP EYE-BOTH (21:14)
[2020-07-01] VITALS (18 sets, daily range): BP systolic 131–170; BP diastolic 59–80; PULSE 78–92; RESP 13–23; TEMP 36.4–37.1; O2SAT 95–100
[2020-07-01] MEDS: albuterol 8 gm MDI 2 PUFF INHALATION ×4 (02:50→22:05)
[2020-07-01] MEDS: FUROsemide 10 mg/mL SDV 4mL 40 MG IVP (07:01)
[2020-07-01 07:14] LABS: Glucose Point of Care 392 mg/dL (70-110)
[2020-07-01] MEDS: aspirin 81 mg Chew Tablet PO (09:28)
[2020-07-01] MEDS: apixaban 5 mg Tablet 2.5 MG PO ×2 (09:28→17:20)
[2020-07-01] MEDS: cilostazol 100 mg Tablet PO ×2 (09:28→17:20)
[2020-07-01] MEDS: pantoprazole DR 40 mg Tablet PO (09:28)
[2020-07-01] MEDS: metoprolol tartrate 25 mg Tablet PO ×2 (09:33→21:04)
[2020-07-01] MEDS: cloNIDine 0.1 mg Tablet PO ×3 (09:33→21:05)
[2020-07-01 11:44] LABS: Glucose Point of Care 450 mg/dL (70-110)
[2020-07-01] MEDS: lipase-protease-amylase Capsule 2 EACH PO ×2 (12:00→17:30)
[2020-07-01] MEDS: ondansetron 2 mg/ML SDV 2 mL 4 MG IVP (13:08)
--- NOTE | 2020-07-01 14:12 | P.PN_ITS ---
Subjective Subjective: Interval history: Ms. Campos is feeling much better.Shortness of breath has significantly improved. Has remained afebrile, heart rate is well controlled. She is tolerating diet well. Other vitals and labs have been reviewed. Medications: Reviewed: Yes Vitals/I&O/Wt Last Vital Signs Temp 98.7 F 07/01/20 11:22 Pulse 79 07/01/20 11:22 Resp 23 H 07/01/20 11:22 BP 131/59 07/01/20 11:22 Pulse Ox 99 07/01/20 11:22 06/30/20 07/01/20 07/01/20 22:59 06:59 14:59 Intake Total 550 / 1250 0 / 1250 960 / 960 Output Total 200 / 200 400 / 600 200 / 200 Balance 350 / 1050 -400 / 650 760 / 760 Weight last 48 hrs Weight 102.285 kg Physical Exam Const: COMMON NORMALS: patient oriented x3 HENMT: COMMON NORMALS: normocephalic HEAD & SCALP: normocephalic Resp: COMMON NORMALS: normal respiratory effort OTHER: Occasional wheezing, no crackles Cardio: COMMON NORMALS: regular rate, regular rhythm, S1 normal heart sound present, S2 normal heart sound present, No gallops present (Cardio), No murmurs present (Cardio), No rub (Cardio) and Peripheral pulses 2+ throughout RATE: regular rate RHYTHM: regular rhythm HEART SOUNDS: S1 normal heart sound present and S2 normal heart sound present PERIPHERAL PULSES: Peripheral pulses 2+ throughout GI: COMMON NORMALS: Normal to inspection, nondistended, normoactive bowel sounds present, Soft to palpation, non-tender, No hepatosplenomegaly present and no masses AUSCULTATION: Yes normoactive bowel sounds PALPATION: Yes Soft to palpation and Yes No hepatosplenomegaly present RECTAL EXAM: deferred Extremity: COMMON NORMALS: no clubbing, cyanosis or edema and no pedal edema Neuro: COMMON NORMALS: patient oriented x3 Data : 07/01/20 14:06 07/01/20 16:39 A&P Assessment and plan (1) Pneumonia due to COVID-19 virus: Tested positive for Covid RT-PCR: On 07/01. Currently she is on Solu-Medrol 40 mg IV daily She is on Eliquis 2.5 mg every 12H Currently she is at her baseline oxygen requirement. Will do a repeat chest x-ray tomorrow in the morning. We will hold on remdesivir for now. Status: Acute (2) Atrial fibrillation with RVR: New Onset A.fIB .Admitted with RVR .Currently rate controlled Cardizem drip was stopped. Currently on Meoprolol .T 25Mg q12 h daily Eliquis 2.5 mg po q12 h daily. 2D Echo: LV systolic function is normal with EF of 55 to 60%. Diastolic function is abnormal. Thickened aortic and mitral valves. Moderate mitral stenosis by mean gradient. There is discrepancy between mitral valve area by pressure half-time (not showing significant mitral stenosis )and mean gradient across mitral valve. Patient will need a graphic follow-up of mitral valve in future. There is mild mitral regurgitation, trace aortic regurgitation and mild pulmonic regurgitation. Mild aortic stenosis is present. Status: Acute (3) Pneumonia: Continue Cef and Azith Status: Acute (4) MATTIE (acute kidney injury): Status: Acute (5) COPD (chronic obstructive pulmonary disease): Neb Solumedrol 40 mg I.V Daily Cef and Georgette Supplemental oxygen to maintain SPO2 90 % Status: Acute (6) Acute hypokalemia: Replete K. Status: Acute (7) Diabetes: Lantus and LDSSI Status: Acute (8) Heart failure: Currently Compensated. Will hold lasix for now. Monitor Inatke and output. Daily Weight. Status: Acute (9) Anemia: Has been worked up extensively as outpatient. Most recent EGD: Gastitis, Colonscopy : AVM S/P APC Monitor CBC Continue Ferrous sulfate. Status: Acute (10) Sleep apnea: Continue CPAP. Status: Acute (11) PAD (peripheral artery disease): Status: Acute Additional A&P Information DVT PPX: Not needed on eliquis CoDE Status :Full code Attestations Medical Necessity Statement*: Patient needs too be in hospital for the managment of COVID PNA Coding Level of Care Code Acute Distribution Center Associate for [facility] Fwd Diagnoses Pneumonia due to COVID-19 virus U07.1; J12.89 Atrial fibrillation with RVR I48.91 Pneumonia J18.9 MATTIE (acute kidney injury) N17.9 COPD (chronic obstructive pulmonary disease) J44.9 Acute hypokalemia E87.6 Diabetes E11.9 Heart failure I50.9 Anemia D64.9 Sleep apnea G47.30 PAD (peripheral artery disease) I73.9
[2020-07-01 14:34] LABS: Basophils % 0.2 %; Hematocrit 28.1 % (37.0-47.0); Hemoglobin 8.4 g/dL (11.5-15.3); Lymphocytes # 0.6 10^3/uL (0.8-4.8); Lymphocytes % 4.5 %; Mean Corpuscular HGB Conc 29.9 g/dL (30.0-36.0); Mean Corpuscular Hemoglobin 28.5 pg (28.0-34.0); Mean Corpuscular Volume 95.3 fL (81-99); Mean Platelet Volume 11.7 fL (7.4-10.4); Monocytes # 0.2 10^3/uL (0.2-0.9); Monocytes % 1.6 %; Neutrophils # 13.03 10^3/uL (1.8-7.7); Neutrophils % 92.5 %; Nucleated Red Blood Cells % 0.2 %; Platelet Count 418 10^3/cmm (130-400); Red Blood Count 2.95 10^6/uL (4.1-5.3); Red Cell Distribution Width 16.2 % (12.1-15.1); White Blood Count 14.1 10^3/uL (4.0-10.0)
[2020-07-01 16:05] LABS: Glucose Point of Care 432 mg/dL (70-110)
[2020-07-01 16:43] LABS: Quest SARS-CoV-2 RNA DETECTED (NOT DETECTED)
[2020-07-01 17:14] LABS: Anion Gap 13.8 (5-19); Blood Urea Nitrogen 31 mg/dL (8-23); Calcium 10.2 mg/dL (8.5-10.5); Carbon Dioxide 32 mmol/L (22-29); Chloride 92 mmol/L (98-107); Glucose 449 mg/dL (65-115); Magnesium 1.8 mg/dL (1.7-2.3); Osmolality Calculated 302 mOsm/kg (285-295); Potassium 4.8 mmol/L (3.5-5.1); Sodium 133 mmol/L (136-145)
[2020-07-01] MEDS: cefTRIAXone 1,000 MG in sodium chloride 0.9% (plus) 50 ML 100 MG IV (17:21)
[2020-07-01] MEDS: azithromycin 500 MG in sodium chloride 0.9% 250 ML 250 MG IV (19:36)
--- NOTE | 2020-07-01 20:21 | PC.NURSE ---
Hand-off report to med surg Report given to med surg nurse regarding pt.
[2020-07-01 21:00] LABS: Glucose Point of Care 390 mg/dL (70-110)
[2020-07-01] MEDS: insulin glargine 100 units/1 mL 75 UNIT SUBCUT (21:04)
[2020-07-01] MEDS: gabapentin 100 mg Capsule PO (21:05)
[2020-07-01] MEDS: atorvastatin 40 mg Tablet 20 MG PO (21:05)
[2020-07-01] MEDS: latanoprost 0.005% Op Soln 2.5 mL Btl 1 DROP EYE-BOTH (21:07)
--- NOTE | 2020-07-01 22:01 | PC.NURSE ---
Patient transferred to room 257. Patient stated I want to go home. Instructed patient on positive COVID results and she would have to leave AMA if wanting to leave tonight. Patient expressed understanding but stated, I just don't want to be stuck here for 14days. I want to go home tomorrow or Friday at the latest.
[2020-07-02] VITALS (16 sets, daily range): BP systolic 136–152; BP diastolic 66–74; PULSE 70–93; RESP 16–20; TEMP 36.4–36.7; O2SAT 86–100
[2020-07-02] MEDS: albuterol 8 gm MDI 2 PUFF INHALATION ×4 (03:28→21:45)
[2020-07-02 05:48] LABS: Basophils % 0.2 %; Eosinophils % 0.1 %; Hematocrit 25.6 % (37.0-47.0); Hemoglobin 7.5 g/dL (11.5-15.3); Lymphocytes # 1.2 10^3/uL (0.8-4.8); Lymphocytes % 10.8 %; Mean Corpuscular HGB Conc 29.3 g/dL (30.0-36.0); Mean Corpuscular Hemoglobin 27.6 pg (28.0-34.0); Mean Corpuscular Volume 94.1 fL (81-99); Mean Platelet Volume 10.1 fL (7.4-10.4); Monocytes # 0.6 10^3/uL (0.2-0.9); Monocytes % 5.4 %; Neutrophils # 8.94 10^3/uL (1.8-7.7); Neutrophils % 81.2 %; Nucleated Red Blood Cells % 0.4 %; Platelet Count 428 10^3/cmm (130-400); Red Blood Count 2.72 10^6/uL (4.1-5.3); Red Cell Distribution Width 14.9 % (12.1-15.1)
--- NOTE | 2020-07-02 06:00 | XRR_ITS ---
PROCEDURE INFORMATION: Exam: XR Chest, 1 View Exam date and time: 07/01/2020 11:59 PM Age: 80 years old Clinical indication: Shortness of breath; Additional info: SOB TECHNIQUE: Imaging protocol: XR of the chest Views: Frontal portable upright view of the chest. COMPARISON: CR XR chest 1V portable [id number] 06/29/2020 2:33 PM FINDINGS: Lungs: The pulmonary vasculature remains congested. Stable mild airspace opacities bilaterally in the mid to lower lung zones. Pleural space: No definite pleural effusion. No pneumothorax. Heart/Mediastinum: Stable borderline cardiomegaly. Bones/joints: Stable. XR/XR chest 1V portable [id number] IMPRESSION: 1. Persistent pulmonary vascular congestion. 2. Stable bilateral mild pulmonary edema.
[2020-07-02 06:08] LABS: Anion Gap 11.9 (5-19); Blood Urea Nitrogen 29 mg/dL (8-23); Calcium 10.2 mg/dL (8.5-10.5); Carbon Dioxide 33 mmol/L (22-29); Chloride 98 mmol/L (98-107); Glucose 184 mg/dL (65-115); Magnesium 1.8 mg/dL (1.7-2.3); Osmolality Calculated 299 mOsm/kg (285-295); Potassium 3.9 mmol/L (3.5-5.1); Sodium 139 mmol/L (136-145)
[2020-07-02 06:33] LABS: Slide Review Slide Review Perform
[2020-07-02 06:37] LABS: Glucose Point of Care 181 mg/dL (70-110)
[2020-07-02] MEDS: cloNIDine 0.1 mg Tablet PO ×3 (08:44→22:02)
[2020-07-02] MEDS: lipase-protease-amylase Capsule 2 EACH PO ×3 (08:44→17:50)
[2020-07-02] MEDS: cilostazol 100 mg Tablet PO ×2 (08:44→17:50)
[2020-07-02] MEDS: apixaban 5 mg Tablet 2.5 MG PO (08:45)
[2020-07-02] MEDS: aspirin 81 mg Chew Tablet PO (08:45)
[2020-07-02] MEDS: pantoprazole DR 40 mg Tablet PO (08:45)
--- NOTE | 2020-07-02 10:15 | PC.SOCIAL ---
IMM Page 2 of IMM explained to patient by phone and copy given to nurse to provide to patient since she is on isolation. Initialed, dated, and timed and placed in chart.
--- NOTE | 2020-07-02 10:31 | PC.NURSE ---
attempted to call back daughter selvin maribel
[2020-07-02] MEDS: metoprolol tartrate 25 mg Tablet PO ×2 (10:32→21:59)
[2020-07-02] MEDS: fluticasone nasal spray 16gm Btl 1 SPRAY INTRANASAL (10:32)
[2020-07-02 11:28] LABS: Glucose Point of Care 291 mg/dL (70-110)
--- NOTE | 2020-07-02 13:19 | P.PN_ITS ---
Subjective Subjective: Interval history: Ms Winkler is doing fine. Currently saturating well on 2ls (Her home oxygen requirement ). Medications: Reviewed: Yes Vitals/I&O/Wt Last Vital Signs Temp 97.9 F 07/02/20 11:26 Pulse 88 07/02/20 11:26 Resp 18 07/02/20 11:26 BP 146/66 07/02/20 11:26 Pulse Ox 98 07/02/20 11:26 07/01/20 07/02/20 07/02/20 22:59 06:59 14:59 Intake Total 540 / 1500 240 / 240 Output Total 0 / 200 0 / 200 Balance 540 / 1300 0 / 1300 240 / 240 Weight last 48 hrs Weight 117.707 kg Physical Exam Const: COMMON NORMALS: patient oriented x3 HENMT: COMMON NORMALS: normocephalic and atraumatic HEAD & SCALP: normocephalic and atraumatic Chest: CHEST: Yes Symmetrical chest wall rise Resp: COMMON NORMALS: normal respiratory effort and clear to auscultation bilaterally EFFORT & INSPECTION: Yes symmetric chest movement A USCULTATION: clear to auscultation bilaterally Cardio: COMMON NORMALS: regular rate, regular rhythm, S1 normal heart sound present, S2 normal heart sound present, No gallops present (Cardio), No murmurs present (Cardio), No rub (Cardio) and Peripheral pulses 2+ throughout RATE: regular rate RHYTHM: regular rhythm HEART SOUNDS: S1 normal heart sound pr esent and S2 normal heart sound present PERIPHERAL PULSES: Peripheral pulses 2+ throughout GI: COMMON NORMALS: Normal to inspection, nondistended, normoactive bowel sounds present, Soft to palpation, non-tender, No hepatosplenomegaly present and no masses AUSCULTATION: Yes normoactive bowel sounds PALPATION: Yes Soft to palpation and Yes No hepatosplenomegaly present RECTAL EXAM: deferred Neuro: COMMON NORMALS: patient oriented x3 Data : 07/02/20 05:36 07/02/20 05:36 A&P Assessment and plan (1) Pneumonia due to COVID-19 virus: Initially came in with increasing home oxygen requirement as well as worsening sob and productive cough. Tested COVID + On 07/01 : Xray chest 07/02 : Stable mild airspace opacities bilaterally in the mid to lower lung zones. Has been on solumedrol as well as eliquis ( 07/02,had to be held due to dropping Hb, will monitor CBC, No BRBPR,No black stool) Rem was not started as she later improved and was requiring baseline home oxygen. Continue Cef and Azith R/t Evaluation states : 2L With exertion Status: Acute (2) Atrial fibrillation with RVR: New Onset A.fIB Currently Rate controlled . 2D Echo:Technically difficult study because of poor ultrasonic windows. LV systolic function is normal with EF of 55 to 60%. Diastolic function is abnormal. Pulmonary Artery Systolic Pressure: 28.7 mmHg Initially on Cardizem drip. Currently rate well controlled on Meoprolol .T 25 Mg q12 h daily Eliquis 2.5 mg po q12 h started initially has been stopped on given Dropping Hb. Status: Acute (3) Pneumonia: Continue Cef and Azith Status: Acute (4) MATTIE (acute kidney injury): Resolved Status: Acute (5) COPD (chronic obstructive pulmonary disease): Neb Solumedrol 40 mg I.V Daily Cef and Georgette Supplemental oxygen to maintain SPO2 90 % Status: Acute (6) Acute hypokalemia: Replete K. Status: Acute (7) Diabetes: Lantus and LDSSI Status: Acute (8) Heart failure: Currently Compensated HFpEF : 2D Echo : Technically difficult study because of poor ultrasonic windows. LV systolic function is normal with EF of 55 to 60%. Diastolic function is abnormal. Pulmonary Artery Systolic Pressure: 28.7 mmHg Lasix 40 mg I.V Daily initially. Had to be held due to worsening SCR Status: Acute (9) Anemia: Has been worked up extensively as outpatient. Most recent EGD: Gastitis, Colonscopy : AVM S/P APC Monitor CBC Continue Ferrous sulfate. Status: Acute (10) Sleep apnea: Status: Acute (11) PAD (peripheral artery disease): Status: Acute Additional A&P Information DVT PPX: Not needed on eliquis CoDE Status :Full code Attestations Medical Necessity Statement*: Patient needs to be in hospital for the management of COVID PNA Coding Level of Care Code Acute File System Installer for g Fwd Diagnoses Pneumonia due to COVID-19 virus U07.1; J12.89 Atrial fibrillation with RVR I48.91 Pneumonia J18.9 MATTIE (acute kidney injury) N17.9 COPD (chronic obstructive pulmonary disease) J44.9 Acute hypokalemia E87.6 Diabetes E11.9 Heart failure I50.9 Anemia D64.9 Sleep apnea G47.30 PAD (peripheral artery disease) I73.9
[2020-07-02 17:37] LABS: Glucose Point of Care 376 mg/dL (70-110)
[2020-07-02] MEDS: azithromycin 500 MG in sodium chloride 0.9% 250 ML 250 MG IV (19:24)
[2020-07-02 21:50] LABS: Glucose Point of Care 333 mg/dL (70-110)
[2020-07-02] MEDS: atorvastatin 40 mg Tablet 20 MG PO (21:58)
[2020-07-02] MEDS: cefTRIAXone 1,000 MG in sodium chloride 0.9% (plus) 50 ML 100 MG IV (21:58)
[2020-07-02] MEDS: gabapentin 100 mg Capsule PO (21:59)
[2020-07-02] MEDS: latanoprost 0.005% Op Soln 2.5 mL Btl 1 DROP EYE-BOTH (21:59)
[2020-07-02] MEDS: insulin glargine 100 units/1 mL 75 UNIT SUBCUT (22:09)
[2020-07-03] VITALS (10 sets, daily range): BP systolic 160–173; BP diastolic 68–76; PULSE 79–87; RESP 15–18; TEMP 36.4–36.6; O2SAT 96–100
[2020-07-03 08:43] LABS: Basophils % 0.3 %; Eosinophils # 0.1 10^3/uL (0.0-0.8); Eosinophils % 0.4 %; Hematocrit 26.7 % (37.0-47.0); Hemoglobin 7.7 g/dL (11.5-15.3); Lymphocytes # 1.1 10^3/uL (0.8-4.8); Lymphocytes % 9.8 %; Mean Corpuscular HGB Conc 28.8 g/dL (30.0-36.0); Mean Corpuscular Hemoglobin 27.2 pg (28.0-34.0); Mean Corpuscular Volume 94.3 fL (81-99); Mean Platelet Volume 9.9 fL (7.4-10.4); Monocytes # 0.6 10^3/uL (0.2-0.9); Monocytes % 5.5 %; Neutrophils # 9.18 10^3/uL (1.8-7.7); Neutrophils % 79.5 %; Nucleated Red Blood Cells # 0.1 /100WBC; Nucleated Red Blood Cells % 0.4 %; Platelet Count 454 10^3/cmm (130-400); Red Blood Count 2.83 10^6/uL (4.1-5.3); Red Cell Distribution Width 15.1 % (12.1-15.1); White Blood Count 11.5 10^3/uL (4.0-10.0)
[2020-07-03 09:02] LABS: Anion Gap 13.4 (5-19); Blood Urea Nitrogen 25 mg/dL (8-23); Calcium 9.9 mg/dL (8.5-10.5); Carbon Dioxide 31 mmol/L (22-29); Chloride 98 mmol/L (98-107); Glucose 236 mg/dL (65-115); Osmolality Calculated 298 mOsm/kg (285-295); Potassium 4.4 mmol/L (3.5-5.1); Sodium 138 mmol/L (136-145)
[2020-07-03] MEDS: albuterol 8 gm MDI 2 PUFF INHALATION (09:10)
[2020-07-03] MEDS: metoprolol tartrate 25 mg Tablet PO (09:22)
[2020-07-03] MEDS: cloNIDine 0.1 mg Tablet PO ×2 (09:22→13:57)
[2020-07-03] MEDS: pantoprazole DR 40 mg Tablet PO (09:22)
[2020-07-03] MEDS: aspirin 81 mg Chew Tablet PO (09:22)
[2020-07-03] MEDS: lipase-protease-amylase Capsule 2 EACH PO ×2 (10:48→13:57)
[2020-07-03] MEDS: fluticasone nasal spray 16gm Btl 1 SPRAY INTRANASAL (10:49)
[2020-07-03] MEDS: cilostazol 100 mg Tablet PO (10:49)
--- NOTE | 2020-07-03 12:01 | ECG_ITS ---
[facility] Test Date: 2020-07-03 Pat Name: Beth Winkler Department: Room: 272 Gender: Female Tape Maker: : 1940 Requested By: Jhonatan Londono Order Number: [id number] Leila MD: Livan Edwards M.D. Measurements Intervals [place] Rate: 82 P: 72 VA: 126 QRS: 49 QRSD: 84 T: 60 QT: 354 QTc: 414 Interpretive Statements SINUS RHYTHM LOW QRS VOLTAGE IN EXTREMITY LEADS [QRS DEFLECTION < 0.5 mV IN LIMB LEADS] POSSIBLE ANTERIOR MYOCARDIAL INFARCTION [30 ms Q WAVE IN V3/V4, OR R < 0.2 mV IN V4], OF INDETERMINATE AGE Compared to ECG 06/29/2020 16:35:00 Atrial flutter no longer present Aberrant conduction of supraventricular beat(s) no longer present Ventricular premature complex(es) no longer present Right-axis deviation no longer present ST (T wave) deviation no longer present Myocardial infarct finding still present Electronically Signed On 07-03-2020 16:57:10 MANUFACTURING TEAM LEADER by Livan Edwards M.D. [id number]
[2020-07-03 12:13] LABS: Glucose Point of Care 346 mg/dL (70-110)
--- NOTE | 2020-07-03 14:38 | PM.DCS ---
Discharge Providers Date of Admission: 06/29/20 16:52 Date of Discharge: July 03, 2020 Attending Provider at Admission: Jhonatan Londono MD Attending Provider at Discharge: Jhonatan Londono MD Primary Care Provider: Ana Vega Diagnoses at Discharge Discharge Diagnosis (1) Pneumonia due to COVID-19 virus: (2) COPD (chronic obstructive pulmonary disease): (3) Diabetes: (4) Heart failure: (5) Anemia: (6) Sleep apnea: (7) PAD (peripheral artery disease): Reason for Visit Reason for Visit: wet coughs, sleeping all the time Hospital Course Hospital Course Beth Winkler is a 80 year old female WIth PMH of COPD on 2 Ls oxygen at home, DM, PVD, H.F was admitted with c/o worsening SOB for the last several days as well as worsening Productive cough.She is also complaining of worsening nasal congestion.Currently deny any Chest pain, fever,headache,nausea,vomiting,diarrhea,abdominal pain,urinary complain. Upon arrival in the ER she was worked up for the above mentioned complains. Xray chest : Nonspecific interstitial congestion right lower lobe. D-DIMER : Negative, BUN/SCR: 24/1.1 , K:2.8 Troponin: Baseline : 56, 2h : 53, delta 2 h: -2.56. Blood Sugar:45. EKG :A.fib with RVR.In ER she given 40 MEQ I.V Pottasium as well as 40 MEQ Oral K and she was started on Diltiazem drip briefly.later she was transitioned to Meoprolol .T 25 Mg q12 h daily. 2D echo was a technically difficult study because of poor ultrasonic windows. LV systolic function is normal with EF of 55 to 60%. Diastolic function is abnormal. Pulmonary Artery Systolic Pressure: 28.7 mmHg She was started on Eliquis 2.5 mg po q12 h started initially but was stopped on given Dropping Hb.Ac use was discussed with the patient and the family member and the decision to use on care home was left for the patient technical sales representatives. She was also tested for COVID -19 Infection and PCR was positive though her initial RAPID was negative. she was kept on solumedrol as well as abxs to which she appropriately responded.REMDESIVIR was not used.At the time of discharge she was requiring baseline 2Ls oxygen.She also came in with MATTIE on CKD,which was managed conservatively. Patient was discharged home in stable condition to follow with his PCP as well as technical sales representatives as outpatient.She has decided to follow as outpatient. Physical Exam Const: COMMON NORMALS: patient oriented x3 HENMT: COMMON NORMALS: normocephalic and atraumatic HEAD & SCALP: normocephalic and atraumatic Resp: COMMON NORMALS: normal respiratory effort and clear to auscultation bilaterally EFFORT & INSPECTION: Yes symmetric chest movement AUSCULTATION: clear to auscultation bilaterally Cardio: COMMON NORMALS: regular rate, regular rhythm, S1 normal heart sound present, S2 normal heart sound present, No gallops present (Cardio), No murmurs present (Cardio), No rub (Cardio) and Peripheral pulses 2+ throughout RATE: regular rate RHYTHM: regular rhythm HEART SOUNDS: S1 normal heart sound present and S2 normal heart sound present PERIPHERAL PULSES: Peripheral pulses 2+ throughout GI: COMMON NORMALS: Normal to inspection, nondistended, normoactive bowel sounds present, Soft to palpation, non-tender, No hepatosplenomegaly present and no masses AUSCULTATION: Yes normoactive bowel sounds PALPATION: Yes Soft to palpation and Yes No hepatosplenomegaly present RECTAL EXAM: deferred Extremity: COMMON NORMALS: no clubbing, cyanosis or edema and no pedal edema Neuro: COMMON NORMALS: patient oriented x3 Discharge Data Data Completed and Pending: Completed Studies During Hospitalization Category Date Time Status XR chest 1V maty ble [id number] Routine Exams 07/02/20 06:00 Completed XR chest 1V maty ble [id number] Stat Exams 06/29/20 14:28 Completed CV echo complete* [id number] Routine Ultrasound 06/30/20 20:27 Completed Pending at discharge Category Date Time Status Basic Metabolic P kirsten AM LABS Lab 07/04/20 04:00 Ordered Complete Blood Co unt w/Auto AM LABS Lab 07/04/20 04:00 Ordered Sputum Culture an d Gram Stain Stat Lab 06/29/20 14:28 Uncollected Labs from last 24 hours 07/03/20 07/03/20 07/03/20 12:04 08:20 08:20 WBC 11.5 H RBC 2.83 L Hgb 7.7 L Hct 26.7 L MCV 94.3 MCH 27.2 L MCHC 28.8 L RDW 15.1 Plt Count 454 H MPV 9.9 Neut % (Auto) 79.5 Lymph % (Auto) 9.8 Carver % (Auto) 5.5 Eos % (Auto) 0.4 Baso % (Auto) 0.3 Neut # (Auto) 9.18 H Lymph # (Auto) 1.1 Carver # (Auto) 0.6 Eos # (Auto) 0.1 Baso # (Auto) 0.0 Nucleated RBC % (a uto) 0.4 Nucleated RBCs # 0.1 Sodium 138 Potassium 4.4 Chloride 98 Carbon Dioxide 31 H Anion Gap 13.4 BUN 25 H Creatinine 0.8 GFR Calculation Not Reportable Glucose 236 H POC Glucose 346 H Calculated Osmolal ity 298 H Calcium 9.9 07/02/20 07/02/20 21:42 17:22 WBC RBC Hgb Hct MCV MCH MCHC RDW Plt Count MPV Neut % (Auto) Lymph % (Auto) Carver % (Auto) Eos % (Auto) Baso % (Auto) Neut # (Auto) Lymph # (Auto) Carver # (Auto) Eos # (Auto) Baso # (Auto) Nucleated RBC % (a uto) Nucleated RBCs # Sodium Potassium Chloride Carbon Dioxide Anion Gap BUN Creatinine GFR Calculation Glucose POC Glucose 333 H 376 H Calculated Osmolal ity Calcium Vitals: Last Vital Signs Temp 97.5 F L 07/03/20 14:36 Pulse 87 07/03/20 14:36 Resp 17 07/03/20 14:36 BP 169/71 07/03/20 14:36 Pulse Ox 98 07/03/20 14:36 Discharge Plan Discharge Patient Disposition: Home Health Service Condition: Stable Prescriptions: Continued latanoprost 0.005 % drops 1 drp ophthalmic (eye) BEDTIME RF: 0 cilostazol 100 mg tablet 100 mg PO BID RF: 0 clonidine HCl 0.1 mg tablet 0.1 mg PO BID RF: 0 atorvastatin 20 mg tablet 20 mg PO BEDTIME RF: 0 pantoprazole 40 mg tablet,delayed release (DR/EC) 40 mg PO DAILY RF: 0 mupirocin 2 % ointment 1 applic TOPICAL DAILY RF: 0 gabapentin 100 mg capsule 100 mg PO BEDTIME RF: 0 albuterol sulfate 90 mcg/actuation HFA aerosol inhaler 2 puff INHALATION Q6H PRN (Reason: Shortness Of Breath) RF: 0 fluticasone propionate 50 mcg/actuation spray,suspension 1 spray INTRANASAL DAILY RF: 0 Humalog KwikPen Insulin 100 unit/mL insulin pen See Rx Instructions .ROUTE .COMPLEX RF: 0 Basaglar KwikPen U-100 Insulin 100 unit/mL (3 mL) insulin pen 75 unit SUBCUT BID RF: 0 Creon 24,000-76,000 -120,000 unit capsule,delayed release(DR/EC) 2 cap PO TID RF: 0 Anoro Ellipta 62.5-25 mcg/actuation blister with device 2 ea inhalation DAILY RF: 0 aspirin 81 mg Tablet,Chewable 81 mg PO DAILY RF: 0 Held torsemide 20 mg tablet 20 mg PO BID RF: 0 Hold Instructions: Resume on 07/17/20. Discontinued cefdinir 300 mg capsule 300 mg PO BID RF: 0 Discharge Orders: Discharge Order (Routine); Ordered 07/03/20 Ordered By: Jhonatan Londono Referrals: [facility] [Other] Venu Mccord MD [Physician] - 07/27/20 1:30 pm Ana Vega NP [Primary Care Provider] - 07/10/20 12:15 pm Discharge Diet: Diabetic Discharge Activity: Resume usual activity Patient Instructions: Heart Failure (DC), Atrial Fibrillation (DC), Viral Pneumonia (DC), Sleep Apnea Syndrome (DC), Acute Kidney Injury (DC), Chronic Obstructive Pulmonary Disease (DC), Anemia (DC), CHF Stoplight, COPD Stoplight, Pneumonia Stoplight Discharge Attestations Time Spent in Discharge Care*: less than 30 min Specific Discharge Activities: educating patient, educating and/or supporting family/caregiver, discussing with case briefer/social workers/dc planners, documenting/other paperwork and evaluating patient/reviewing data Status at Discharge: Cognitive status at discharge: cognitively intact, Behavioral status at discharge: cooperative, Functional status at discharge: independent ambulation Overall status at discharge: patient is back to baseline Quality Metrics Clinical Quality Measures During this hospital stay, did patient experience: None Coding Level of Care Code Acute Floor Covering Printer Assistant for g Fwd Diagnoses Pneumonia due to COVID-19 virus U07.1; J12.89 COPD (chronic obstructive pulmonary disease) J44.9 Diabetes E11.9 Heart failure I50.9 Anemia D64.9 Sleep apnea G47.30 PAD (peripheral artery disease) I73.9
--- NOTE | 2020-07-03 16:17 | PC.NURSE ---
pt iv taken out and intact. discharge instructions explained and all questions answered. pt taken to parking lot 7 via wheelchair.
--- NOTE | 2020-07-03 16:44 | PC.RESP ---
Pulmonary Rehab information sent to patient.
[2020-07-04 16:03] LABS: Glucose Point of Care 215 mg/dL (70-110)
== END 2020-07-03 16:26 | disposition home health service (06) | DRG 177 ==
LOC: ER 17:40 → ICU 18:49 → CSU 06-30 22:05 → MEDSURG 07-01 22:02
PROVIDERS: Admitting Provider Internal Medicine; Emergency Provider Family Medicine; PCP Nurse Practitioner Family; Visit Provider Internal Medicine
DX: U07.1 COVID-19 (principal); J12.89 Other viral pneumonia; I50.31 Acute diastolic (congestive) heart failure; N17.9 Acute kidney failure, unspecified; I48.91 Unspecified atrial fibrillation; J44.9 Chronic obstructive pulmonary disease, unspecified; Z99.81 Dependence on supplemental oxygen; E11.51 Type 2 diabetes mellitus with diabetic peripheral angiopathy without gangrene; E87.6 Hypokalemia; D64.9 Anemia, unspecified; G47.30 Sleep apnea, unspecified; I08.0 Rheumatic disorders of both mitral and aortic valves; Z79.4 Long term (current) use of insulin; Z79.51 Long term (current) use of inhaled steroids; Z79.82 Long term (current) use of aspirin
CPT/HCPCS: 12345; 36415; 36416; 71045; 80048; 80053; 82962; 83605; 83735; 83880; 84145; 84443; 84484; 85025; 85378; 86140; 87426; 87635; 93005; 93306; 94640; 94762; 96372; 99283; J0456; J0696; J1815 ×2; J1940; J1956; J2405; J2920; J3480; J3535; J7050

== ENCOUNTER 2020-07-24 13:15 | Outpatient (CLI) | payer MEDICARE, MEDICAID, SELFPAY ==
[2020-07-24 16:07] LABS: Ferritin 82 ng/mL (15-150); Iron 41 ug/dL (37-145)
[2020-07-24 19:55] LABS: Percent Saturation 16.7 % (20-50); Total Iron Binding Capacity 245 mcg/dl; Unsaturated Iron Binding 204 ug/dL (112-347)
[2020-07-24 19:56] LABS: Folate Level > 20.0 ng/mL (4.8-37.3)
[2020-07-25 01:17] LABS: Vitamin B12 1001 pg/mL (232-1245)
--- NOTE | 2020-07-25 09:55 | ONC FU_ITS ---
Dr. Gonzales follow up note Patient: Beth Winkler Unit #: [id number]: 1940 Dicatated By: Rob Gonzales M.D.Date of Visit:Jul 24, 2020 Onc Med Follow-up/Prog Note History of Present Illness: Mrs. Beth Winkler, with long-standing history of iron deficiency anemia for many years , on chronic oral iron supplements recently admitted to hospital on 08/28/2017 with hemoglobin 5.8 hematocrit 19.2 with a normal white blood count and platelets she was given 2 units of packed RBCs with that her hemoglobin gone up to 8.5 on 08/29/2017. , stools were checked for occult blood on 08/30/2017 it came back positive. And underwent EGD which showed no gastritis or ulceration , further anemia workup done on 08/28/2017 showed B12 387, TIBC 396.3, iron 28, folate 12.50. Her bilirubin was 0.2. She was given dose of Venofer Peripheral blood smears done on 08/27/2017 showed marked normocytic anemia, with no schistocytes or spherocytes generalized weakness and fatigue and she did receive 2 units of packed RBC . She also had colonoscopy done on 10/09/2017 as per patient couple of polyps were seen otherwise unremarkable. Underwent bone marrow evaluation on 11/13/2017 which showed hypocellular bone marrow with dyspoiesis of erythrocyte and megakaryocytes. Myelodysplastic syndrome FISH panel was negative. She was given trial of erythropoiesis stimulating agent without much success and finally she was referred to hematology clinic at [facility] she was seen on 02/04/2019 and lab workup done there including B12, was normal at 661, homocystine was 9.3, white blood count 10.1 hemoglobin was 11.5 and platelet count was 306,000 MCV was 89.3. Ferritin was 42 TIBC was 264 saturation was 16%. Haptoglobin was mildly elevated at 254, LDH was normal at 170, folate was more than 20 .Status post Injectafer 750 mg on May 26 and 06/02/2019 Impression was her anemia is multifactorial including secondary iron deficiency and patient being very low risk category for myelodysplastic syndrome and would not consider erythropoietin stimulating agent at this time rather monitor her hemoglobin while on iron supplement and if there is drop in her hemoglobin recommended GI evaluation. Underwent EGD on April 07, [address] 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 Multiple colon polyps status post hot and cold snare polypectomy. Suboptimal bowel prep. she has history of off and on decubitus and on May 17, 2020 she had steroid injection given to her decubital area and also recently underwent colonoscopy and EGD in [place] which was unremarkable except AV malformation in her ascending colon status post argon plasma coagulation and polypectomy. Came for follow-up, denies any specific complaints, no fever chills, no nausea or vomiting, no diarrhea constipation, no melena or hematochezia, no hemoptysis or hematemesis, no jaundice. Denies any generalized weakness and fatigue, patient mobilized minimally mostly from bedroom to family room or to the bathroom because of morbid obesity and she is also on CPAP for sleep apnea. Medications: Adult Aspirin EC Low Strength 1 (81 mg) Tablet, enteric coated Oral daily, Ascorbic Acid 1 (500 mg) Tablet Oral daily, Cholecalciferol 1 (1000 Units) Tablet Oral b.i.d., Creon 1 (98555 Units) Capsule Delayed Release Particles Oral t.i.d., Demadex 1 (10 mg) Tablet Oral daily, Econazole Nitrate Cream Topical b.i.d., Ferrous Sulfate 1 (325 (65 fe) mg) Tablet Oral daily, Flonase 1 spray(s) (of 50 mcg/act) Suspension Nasal daily, Furosemide 1 Tablet (of 20 mg) Oral daily, Gabapentin 1 Capsule (of 100 mg) Oral at bedtime, Insulin Degludec 30 Units Subcutaneous daily, K-Tab 1 Tablet (of 20 meq) Tablet, controlled release Oral daily, Lisinopril 1 (20 mg) Tablet Oral daily, Minocycline HCl 1 Tablet (of 50 mg) Capsule Oral daily, NovoLOG (100 Units/mL) Subcutaneous Take as Directed, Ocuvite Adult 50+ 1 Capsule Oral daily, Renovo-3 1 (1000 mg) Capsule Oral b.i.d., Pletal 1 (100 mg) Tablet Oral b.i.d., Protonix 1 (40 mg) Tablet, enteric coated Oral daily, Proventil HFA 2 puff(s) (of 108 (90 base) mcg/act) Aerosol, solution Inhalation four times a day Allergies: Alginic Acid, Aluminum Hydroxide Gel, bee sting, Calcium Carbonate, dihydroxyaluminum sodium, Loratadine, Magnesium Carbonate, Magnesium Hydroxide, Simethicone, and Sulfa. Review of Systems: Constitutional - Appetite is good and weight is stable. No fever, chills, hot flashes, or night sweats. Energy level is poor, ENMT - Some sinus congestion/drainage. No mouth sores. No sore throat or difficulty swallowing, Hematologic/Lymphatic - No abnormal bruising or bleeding, Respiratory - Frequent shortness of breath. Pt is on portable oxygen today. No cough. No pleuritic pain or hemoptysis, Cardiovascular - No angina pain. No palpitations, Gastrointestinal - No nausea or vomiting. Frequent heartburn or acid reflux. No diarrhea or constipation. No blood in the stool or black stools, Genitourinary (F) - No dysuria or hematuria. No urinary frequency. No urgency or incontinence, Musculoskeletal - Bilateral knee pain, Neurologic - Frequent headache or dizziness. Chronic numbness/paresthesias in feet.No other focal neurologic symptoms, Psychiatric - No anxiety or depression. No insomnia. Vital Signs: Vitals are not available for this patient. Performance Status: 3 - Capable of only limited self-care, confined to bed or chair more than 50% of waking hours. (ECOG) Physical Examination: ENMT - No mouth sores, no thrush, no jaundice, Respiratory - Poor air entry otherwise clear, Cardiovascular - Regular rate and rhythm of heart, Abdomen - Soft, bowel sounds present, Extremities - 1+ edema bilateral. Lab/Imaging: Test performed on May 25, 2020 12:19 WBC 16.9 10 3/uL RBC 3.09 10 6/uL HGB 9.1 g/dL HCT 29.8 % MCV 96.4 fL MCH 29.4 pg MCHC 30.5 g/dL RDW 14.9 % Platelet Count 257 10 3/cmm MPV 10.1 fL Neutrophils 14.79 10 3/uL Lymphocytes 1.0 10 3/uL Monocytes 0.7 10 3/uL Eosinophils 0.2 10 3/uL Basophils 0.1 10 3/uL Neutrophil % 87.7 % Lymphocyte % 6.0 % Monocyte % 4.3 % Eosinophil % 1.0 % Basophils % 0.4 % NRBC % 0 % Test performed on Mar 29, 2020 13:58 Sodium 137 mmol/L Potassium 3.4 mmol/L Chloride 97 mmol/L CO2 29 mmol/L Anion Gap 14.4 BUN 12 mg/dL Creatinine 0.7 mg/dL Cr Clearance (Est) 118.76 mL/min Glucose 99 mg/dL Osmolality - Calculated 284 mOsm/kg Calcium 10.2 mg/dL Protein, Total 7.2 g/dL Albumin 3.7 g/dL Globulin 3.5 g/dL Bilirubin, Total 0.2 mg/dL ALT (SGPT) 10 U/L AST (SGOT) 17 U/L Alkaline Phosphatase 79 IU/L Test performed on Feb 21, 2020 12:30 Ferritin 47 ng/mL Iron 44 mcg/dL Iron Binding Capacity (TIBC) 199 mcg/dl % Iron Saturation 22.1 % UIBC 155 mcg/dL Impression: Normocytic normochromic anemia,Due to myelodysplasia per bone marrow done on 11/13/2017 , And off and on concurrent iron deficiency due to 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 Colonoscopy done on 10/09/2017 showed in the proximal ascending colon a small area of angiectasia there was no ongoing bleeding. 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 Zachariah Johnson in [place] Chronic decub involving buttock area Bone marrow done on 11/13/2017 showed hypercellular bone marrow with red cell hyperplasia and dyspoiesis of red cell precursors and megakaryocytes consistent with a myelodysplasia FISH for MDS negative, flow cytometric and cytogenetic normal. Started on Procrit 60,000 units subcutaneous once a week on 01/14/2018 at that time hemoglobin was 7.9 hematocrit 24.5 Status post Injectafer 750 mg intravenously on May 27 and 2017 Hemoglobin on 06/25/2018 improved to 8.7 from 7.1 prior to the infusion Plan: Discussed with patient regarding her labs, her hemoglobin is 8.9 g compared to 9.1 g in May 2020 and rest of the CBC is not available as per lab specimen was not sufficient. And patient is hard to stick, multiple nurses tried to obtain sample. And patient is refusing further attempts Clinically, patient is doing reasonably well with no new signs symptoms and follow-up hemoglobin level is stable, it appears patient has well compensated anemia, will continue to monitor and she will return to clinic in 2 months with CBC and iron studies and B12 level, if low will consider supplement if normal we may try erythropoiesis stimulating agents. Signed By: Rob Gonzales M.D. <<Signature on File>>
== END 2020-07-24 13:16 | disposition home or self-care (01) ==
PROVIDERS: PCP Nurse Practitioner Family; Visit Provider Internal Medicine Hematology & Oncology
DX: D50.9 Iron deficiency anemia, unspecified (principal); I99.8 Other disorder of circulatory system; L89.329 Pressure ulcer of left buttock, unspecified stage; L89.319 Pressure ulcer of right buttock, unspecified stage; Z79.899 Other long term (current) drug therapy
CPT/HCPCS: 36415; 82607; 82728; 82746; 83540; 83550; 85025; 99214

== ENCOUNTER → 2020-07-27 13:53 | Outpatient (BNVA) | payer MEDICARE, MEDICAID, SELFPAY | PROVIDERS: PCP Nurse Practitioner Family; Visit Provider Internal Medicine Cardiovascular Disease | DX: R06.02 Shortness of breath (principal); I50.33 Acute on chronic diastolic (congestive) heart failure; Z09 Encounter for follow-up examination after completed treatment for conditions other than malignant neoplasm; E78.5 Hyperlipidemia, unspecified; E11.29 Type 2 diabetes mellitus with other diabetic kidney complication; I73.9 Peripheral vascular disease, unspecified; N17.9 Acute kidney failure, unspecified; Z87.891 Personal history of nicotine dependence | CPT/HCPCS: 80048; 83880 ==

== ENCOUNTER 2020-09-28 13:07 | Outpatient (CLI) | payer MEDICARE, MEDICAID, SELFPAY ==
[2020-09-28 14:10] LABS: Basophils # 0.1 10^3/uL (0.0-0.1); Basophils % 0.5 %; Eosinophils # 0.3 10^3/uL (0.0-0.8); Eosinophils % 3.2 %; Hematocrit 25.5 % (37.0-47.0); Hemoglobin 7.6 g/dL (11.5-15.3); Lymphocytes # 0.9 10^3/uL (0.8-4.8); Lymphocytes % 8.9 %; Mean Corpuscular HGB Conc 29.8 g/dL (30.0-36.0); Mean Corpuscular Hemoglobin 28.3 pg (28.0-34.0); Mean Corpuscular Volume 94.8 fL (81-99); Monocytes # 0.6 10^3/uL (0.2-0.9); Neutrophils # 8.31 10^3/uL (1.8-7.7); Neutrophils % 80.3 %; Nucleated Red Blood Cells % 0 %; Platelet Count 278 10^3/cmm (130-400); Red Blood Count 2.69 10^6/uL (4.1-5.3); Red Cell Distribution Width 13.9 % (12.1-15.1); Reticulocyte % 5 % (37.0-47.0); White Blood Count 10.3 10^3/uL (4.0-10.0)
[2020-09-28 14:54] LABS: Ferritin 55 ng/mL (15-150); Iron 20 ug/dL (37-145); LDL Cholesterol Direct 47 mg/dL (0-100); Percent Saturation 8.6 % (20-50); Total Iron Binding Capacity 231 mcg/dl; Unsaturated Iron Binding 211 ug/dL (112-347); Vitamin B12 819 pg/mL (232-1245)
--- NOTE | 2020-10-10 00:49 | ONC FU_ITS ---
Leyda Ramirez Patient Note Patient: Beth Winkler Unit #: [id number]: 1940 Dictated By: Russ RiveroDate of Visit: Sep 28, 2020 Onc MED Follow-Up/Prog Note Chief Complaint: Anemia History of Present Illness: Mrs. Winkler is a 80 year old female with a long-standing history of iron deficiency anemia. She has been on chronic oral iron supplements. She was admitted to the hospital on 08/28/2017 with hemoglobin 5.8 hematocrit 19.2 with a normal white blood count and platelets she was given 2 units of packed RBCs with that her hemoglobin gone up to 8.5 on 08/29/2017. Her stools were checked for occult blood on 08/30/2017 it came back positive. And underwent EGD which showed no gastritis or ulceration. Further anemia workup done on 08/28/2017 showed B12 387, TIBC 396.3, iron 28, folate 12.50. Her bilirubin was 0.2. She was given a dose of Venofer at that time. Peripheral blood smears done on 08/27/2017 showed marked normocytic anemia, with no schistocytes or spherocytes generalized weakness and fatigue and she did receive 2 units of packed RBC . She also had colonoscopy done on 10/09/2017 as per patient couple of polyps were seen otherwise unremarkable. Mrs Winkler underwent bone marrow evaluation on 11/13/2017 which showed hypocellular bone marrow with dyspoiesis of erythrocyte and megakaryocytes. Myelodysplastic syndrome FISH panel was negative. She was given trial of erythropoiesis stimulating agent without much success and finally she was referred to hematology clinic at [facility]. She was seen on 02/04/2019 and lab workup done there including B12, was normal at 661, homocystine was 9.3, white blood count 10.1 hemoglobin was 11.5 and platelet count was 306,000 MCV was 89.3. Ferritin was 42 TIBC was 264 saturation was 16%. Haptoglobin was mildly elevated at 254, LDH was normal at 170, folate was more than 20 She receviedd Injectafer 750 mg on May 26 and 2018. She tolerated it well. Impression was her anemia is multifactorial including secondary iron deficiency and patient being very low risk category for myelodysplastic syndrome and would not consider erythropoietin stimulating agent at this time rather monitor her hemoglobin while on iron supplement and if there is drop in her hemoglobin recommended GI evaluation. Mrs Winkler underwent GI workup on April 07, [address] Zachariah Johnson in [place], [place]. 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 Multiple colon polyps status post hot and cold snare polypectomy. Suboptimal bowel prep. She has history of off and on decubitus and on May 17, 2020 she had steroid injection given to her decubital area. She has impaired mobility and minimally mostly just goes from her bedroom to family room or to the bathroom because of morbid obesity and she is also on CPAP for sleep apnea. Mrs Winkler was last seem by Dr Gonzales on July 24, 2020. Her hemoglobin was 8.9 at that time. She did not have any new symptoms and her follow-up hemoglobin was actually stable. Dr. Gonzales felt that she had compensated anemia and elected to continue monitor her and ask her return to the clinic in 2 months with CBC iron studies and B12. Mrs. Winkler is here today for her 2-month follow-up . She states overall she is doing good. She denies any new shortness of breath orthopnea. She states her energy is about the same. She status no worse than her last visit. She is still able to do little things around the house that help take care of her self but for the most part she continues to utilize a wheelchair for mobility. She still limited on mobility within the home. She states she has had no new pain. She denies any bleeding. She denies any hemoptysis, hematochezia or hematuria. She states overall she feels okay . She has no new concerns today. She states her bowel and bladder function is normal. She has lower extremity edema from sitting in her wheelchair but that resolves at night. Her ECOG is 3. Past Medical History: Asthma Atherosclerosis of lower extremities Bilateral carotid artery stenosis Cardiac arrhythmia Chronic kidney disease Chronic obstructive pulmonary disease Hyperlipidemia Hypertension Obstructive sleep apnea Type II diabetes Covid 19 positive in 2019 Past Surgical History: Appendectomy Caesarean section Cataract excision Cholecystectomy Hysterectomy Bone biopsy in 2018 Colonoscopy in 2018 Upper endoscopy in 2018 Cyst removal from left armpit in 2012 Allergies: Alginic Acid, Aluminum Hydroxide Gel, bee sting, Calcium Carbonate, dihydroxyaluminum sodium, Loratadine, Magnesium Carbonate, Magnesium Hydroxide, Simethicone, and Sulfa. Medications: Adult Aspirin EC Low Strength 1 (81 mg) Tablet, enteric coated Oral daily Ascorbic Acid 1 (500 mg) Tablet Oral daily Cholecalciferol 1 (1000 Units) Tablet Oral b.i.d. Creon 1 (43699 Units) Capsule Delayed Release Particles Oral t.i.d. Demadex 1 (10 mg) Tablet Oral daily Econazole Nitrate Cream Topical b.i.d. Ferrous Sulfate 1 (325 (65 fe) mg) Tablet Oral daily Flonase 1 spray(s) (of 50 mcg/act) Suspension Nasal daily Furosemide 1 Tablet (of 20 mg) Oral daily Gabapentin 1 Capsule (of 100 mg) Oral at bedtime Insulin Degludec 30 Units Subcutaneous daily K-Tab 1 Tablet (of 20 meq) Tablet, controlled release Oral daily Lisinopril 1 (20 mg) Tablet Oral daily Minocycline HCl 1 Tablet (of 50 mg) Capsule Oral daily NovoLOG (100 Units/mL) Subcutaneous Take as Directed Ocuvite Adult 50+ 1 Capsule Oral daily [place]-3 1 (1000 mg) Capsule Oral b.i.d. Pletal 1 (100 mg) Tablet Oral b.i.d. Protonix 1 (40 mg) Tablet, enteric coated Oral daily Proventil HFA 2 puff(s) (of 108 (90 base) mcg/act) Aerosol, solution Inhalation four times a day Family History: Ms. Winkler's mother at age 85: type II diabetes, and hypertension. Ms. Winkler's father at age 91: stroke, and hypertension. Ms. Winkler has 1 brother who is alive. She has 2 sisters: 2 alive. Social History: Ms. Winkler is single and she is retired. Ms. Winkler quit smoking 51 years ago but had smoked for 8 years. She has no history of drinking. She has indicated exposure to the following products: cigarettes. patient has a history of smoking 3 cigarettes per day for 8 years. Vital Signs: Performed on Sep 28, 2020 14:17 Height - 62.00 in Temperature - 98.2 F (LOW) Pulse - 90 /min Respiration - 16 /min BP - 135/79 mm(hg) O2 Sat - 98 % Pain - 0,3 - Capable of only limited self-care, confined to bed or chair more than 50% of waking hours. (ECOG) Physical Examination: Constitutional Alert, oriented, no acute distress. Skin pink, warm and dry. Head Normocephalic; atraumatic. Eyes Conjunctivae and sclerae are clear and without icterus. Pupils are reactive and equal. Neck Supple without masses or thyromegaly. No jugular venous distension. Respiratory Lungs are clear to auscultation without rhonchi or wheezing. Cardiovascular Regular rate and rhythm of heart without murmurs,clicks, gallops or rubs. Back/Spine Non-tender to palpation. Extremities No visible deformities, no cyanosis, clubbing or edema. Musculoskeletal No tenderness or swelling, normal range of motion without obvious weakness. Integumentary No rashes or lesions. Neurologic No sensory or motor deficits, normal cerebellar function. Gait not assessed due to presenting in a wheelchair today. Psychiatric Alert and oriented times three. Coherent speech. Verbalizes understanding of our discussions today. Laboratory:Test performed on Sep 28, 2020 13:45 Ferritin 55 ng/mL Iron 20 mcg/dL Vitamin B12 819 pg/mL Iron Binding Capacity (TIBC) 231 mcg/dl % Iron Saturation 8.6 % UIBC 211 mcg/dL Retic Count % 5 % WBC 10.3 10 3/uL RBC 2.69 10 6/uL HGB 7.6 g/dL HCT 25.5 % MCV 94.8 fL MCH 28.3 pg MCHC 29.8 g/dL RDW 13.9 % Platelet Count 278 10 3/cmm MPV 9.0 fL Neutrophils 8.31 10 3/uL Lymphocytes 0.9 10 3/uL Monocytes 0.6 10 3/uL Eosinophils 0.3 10 3/uL Basophils 0.1 10 3/uL Neutrophil % 80.3 % Lymphocyte % 8.9 % Monocyte % 6.0 % Eosinophil % 3.2 % Basophils % 0.5 % NRBC % 0 % Impression: Normocytic normochromic anemia,Due to myelodysplasia per bone marrow done on 11/13/2017 , And off and on concurrent iron deficiency due to 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 Colonoscopy done on 10/09/2017 showed in the proximal ascending colon a small area of angiectasia there was no ongoing bleeding. 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 Zachariah Johnson in [place] Chronic decub involving buttock area Bone marrow done on 11/13/2017 showed hypercellular bone marrow with red cell hyperplasia and dyspoiesis of red cell precursors and megakaryocytes consistent with a myelodysplasia FISH for MDS negative, flow cytometric and cytogenetic normal. Started on Procrit 60,000 units subcutaneous once a week on 01/14/2018 at that time hemoglobin was 7.9 hematocrit 24.5 Status post Injectafer 750 mg intravenously on May 27 and 2017 Hemoglobin on 06/25/2018 improved to 8.7 from 7.1 prior to the infusion Plan: PROBLEMS ADDRESSED TODAY 1. Chronic anemia. A. Labs from today were reviewed in detail and discussed with Mrs. Winkler and her family and a copy was given to them. WBC 10.3, hemoglobin 7.6, platelets 276,000 ANC is 8310. Her iron studies were pending at time of visit. Her iron saturation in July 2020 was 16.7% ferritin was 82 iron level was 41. B. Mrs. Winkler states that she did not feel that she needed transfusion services today. Her hemoglobin is 7.6. C. We will call her when we have results of her iron studies. I suspect that she is iron deficient and may need repeat Injectafer. D. I did request that erythropoietin level be added to the blood in lab if possible as Dr. Gonzales had mentioned possibly giving her erythropoietin stimulating agents if she continued to be anemic. E. Once we see the results of her iron studies we will determine follow-up. F. Mrs. Winkler was instructed to call us in the interim if she has any worsening of shortness of breath, fatigue, chest pain or palpitations so that we could set her up for blood transfusion services. She was encouraged to call us if she has any questions or any problems. Signed By: Russ Rivero-, AOCNP Rob Gonzales MD <<Signature on File>>
== END 2020-09-28 13:08 | disposition home or self-care (01) ==
LOC: ONCMED 13:09
PROVIDERS: PCP Nurse Practitioner Family; Visit Provider Nurse Practitioner
DX: D50.9 Iron deficiency anemia, unspecified (principal); E11.40 Type 2 diabetes mellitus with diabetic neuropathy, unspecified; Z87.19 Personal history of other diseases of the digestive system; Z79.4 Long term (current) use of insulin
CPT/HCPCS: 36415; 82607; 82728; 83540; 83550; 83721; 85025; 85045; 99214

== ENCOUNTER 2020-11-16 10:44 | Outpatient (CLI) | payer MEDICARE, MEDICAID, SELFPAY | END 2020-11-16 10:45 | disposition home or self-care (01) | LOC: LAB 01-11 11:40 | PROVIDERS: Visit Provider Internal Medicine Cardiovascular Disease | DX: R06.02 Shortness of breath (principal); I50.33 Acute on chronic diastolic (congestive) heart failure | CPT/HCPCS: 80048; 83880 ==

== ENCOUNTER 2020-11-20 08:04 | Outpatient (CLI) | payer MEDICARE, MEDICAID, SELFPAY ==
[2020-11-20] MEDS: ferric carboxy (IVPB) 750 MG in sodium chloride 0.9% (100 ml) 100 ML 460 MG IV (09:00)
[2020-11-20 09:23] LABS: Basophils % 0.5 %; Eosinophils # 0.3 10^3/uL (0.0-0.8); Eosinophils % 3.8 %; Hematocrit 21.6 % (37.0-47.0); Lymphocytes % 11.4 %; Mean Corpuscular HGB Conc 26.9 g/dL (30.0-36.0); Mean Corpuscular Hemoglobin 28.3 pg (28.0-34.0); Mean Corpuscular Volume 105.4 fL (81-99); Mean Platelet Volume 9.8 fL (7.4-10.4); Monocytes # 0.5 10^3/uL (0.2-0.9); Monocytes % 6.2 %; Neutrophils # 6.47 10^3/uL (1.8-7.7); Nucleated Red Blood Cells % 0.2 %; Platelet Count 235 10^3/cmm (130-400); Red Blood Count 2.05 10^6/uL (4.1-5.3); Red Cell Distribution Width 17.6 % (12.1-15.1); White Blood Count 8.4 10^3/uL (4.0-10.0)
[2020-11-20 09:29] LABS: Hemoglobin 5.8 g/dL (11.5-15.3)
[2020-11-20 09:42] LABS: Alanine Aminotransferase 7 U/L (0-33); Albumin Level 2.7 g/dL (3.5-5.2); Alkaline Phosphatase 69 IU/L (35-105); Anion Gap 14.1 (5-19); Aspartate Amino Transferase 11 U/L (0-32); Blood Urea Nitrogen 17 mg/dL (8-23); Calcium 9.4 mg/dL (8.5-10.5); Carbon Dioxide 28 mmol/L (22-29); Chloride 100 mmol/L (98-107); Ferritin 44 ng/mL (15-150); Globulin 2.9 g/dL (1.3-4.6); Glucose 307 mg/dL (65-115); Iron 29 ug/dL (37-145); Osmolality Calculated 299 mOsm/kg (285-295); Percent Saturation 14.4 % (20-50); Potassium 4.1 mmol/L (3.5-5.1); Sodium 138 mmol/L (136-145); Total Bilirubin 0.2 mg/dL (0.15-1.2); Total Iron Binding Capacity 201 mcg/dl; Total Protein 5.6 g/dL (6.6-8.7); Unsaturated Iron Binding 172 ug/dL (112-347)
[2020-11-20] MEDS: acetaminophen 325 mg Tablet 650 MG PO (10:00)
[2020-11-20] MEDS: diphenhydrAMINE 25 mg Capsule PO (10:30)
[2020-11-20 12:40] VITALS: BP 129/57; PULSE 84; RESP 18; TEMP 36.8; O2SAT 99
[2020-11-20] MEDS: FUROsemide 10 mg/mL SDV 2mL 20 MG IV (14:10)
--- NOTE | 2020-11-20 15:52 | ONC FU_ITS ---
Dr. Gonzales follow up note Patient: Beth Winkler Unit #: [id number]: 1940 Dicatated By: Rob Gonzales M.D.Date of Visit:November 20, 2020 Onc Med Follow-up/Prog Note History of Present Illness: Mrs. Winkler is a 80 year old female with a long-standing history of iron deficiency anemia. She has been on chronic oral iron supplements. She was admitted to the hospital on 08/28/2017 with hemoglobin 5.8 hematocrit 19.2 with a normal white blood count and platelets she was given 2 units of packed RBCs with that her hemoglobin gone up to 8.5 on 08/29/2017. Her stools were checked for occult blood on 08/30/2017 it came back positive. And underwent EGD which showed no gastritis or ulceration. Further anemia workup done on 08/28/2017 showed B12 387, TIBC 396.3, iron 28, folate 12.50. Her bilirubin was 0.2. She was given a dose of Venofer at that time. Peripheral blood smears done on 08/27/2017 showed marked normocytic anemia, with no schistocytes or spherocytes generalized weakness and fatigue and she did receive 2 units of packed RBC . She also had colonoscopy done on 10/09/2017 as per patient couple of polyps were seen otherwise unremarkable. Mrs Winkler underwent bone marrow evaluation on 11/13/2017 which showed hypocellular bone marrow with dyspoiesis of erythrocyte and megakaryocytes. Myelodysplastic syndrome FISH panel was negative. She was given trial of erythropoiesis stimulating agent without much success and finally she was referred to hematology clinic at [facility]. She was seen on 02/04/2019 and lab workup done there including B12, was normal at 661, homocystine was 9.3, white blood count 10.1 hemoglobin was 11.5 and platelet count was 306,000 MCV was 89.3. Ferritin was 42 TIBC was 264 saturation was 16%. Haptoglobin was mildly elevated at 254, LDH was normal at 170, folate was more than 20 She receviedd Injectafer 750 mg on May 26 and 2018. She tolerated it well. Impression was her anemia is multifactorial including secondary iron deficiency and patient being very low risk category for myelodysplastic syndrome and would not consider erythropoietin stimulating agent at this time rather monitor her hemoglobin while on iron supplement and if there is drop in her hemoglobin recommended GI evaluation. Mrs Winkler underwent GI workup on April 07, [address] Zachariah Johnson in [place], [place]. 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 Multiple colon polyps status post hot and cold snare polypectomy. Suboptimal bowel prep. She has history of off and on decubitus and on May 17, 2020 she had steroid injection given to her decubital area. She has impaired mobility and minimally mostly just goes from her bedroom to family room or to the bathroom because of morbid obesity and she is also on CPAP for sleep apnea. on July 24, 2020. Her hemoglobin was 8.9 at that time. She did not have any new symptoms and her follow-up hemoglobin was actually stable. felt that she had compensated anemia and elected to continue monitor her and ask her return to the clinic in 2 months with CBC iron studies and B12. 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 As per patient over the weekend she had large amount of bleeding from her decub and changed her underwear 3 times. Denies any shortness of breath or palpitation at rest but, dizzy or lightheaded when she walk around Medications: Adult Aspirin EC Low Strength 1 (81 mg) Tablet, enteric coated Oral daily, Ascorbic Acid 1 (500 mg) Tablet Oral daily, Cholecalciferol 1 (1000 Units) Tablet Oral b.i.d., Creon 1 (43154 Units) Capsule Delayed Release Particles Oral t.i.d., Demadex 1 (10 mg) Tablet Oral daily, Econazole Nitrate Cream Topical b.i.d., Ferrous Sulfate 1 (325 (65 fe) mg) Tablet Oral daily, Flonase 1 spray(s) (of 50 mcg/act) Suspension Nasal daily, Furosemide 1 Tablet (of 20 mg) Oral daily, Gabapentin 1 Capsule (of 100 mg) Oral at bedtime, Insulin Degludec 30 Units Subcutaneous daily, K-Tab 1 Tablet (of 20 meq) Tablet, controlled release Oral daily, Lisinopril 1 (20 mg) Tablet Oral daily, Minocycline HCl 1 Tablet (of 50 mg) Capsule Oral daily, NovoLOG (100 Units/mL) Subcutaneous Take as Directed, Ocuvite Adult 50+ 1 Capsule Oral daily, [place]-3 1 (1000 mg) Capsule Oral b.i.d., Pletal 1 (100 mg) Tablet Oral b.i.d., Protonix 1 (40 mg) Tablet, enteric coated Oral daily, Proventil HFA 2 puff(s) (of 108 (90 base) mcg/act) Aerosol, solution Inhalation four times a day Allergies: Alginic Acid, Aluminum Hydroxide Gel, bee sting, Calcium Carbonate, dihydroxyaluminum sodium, Loratadine, Magnesium Carbonate, Magnesium Hydroxide, Simethicone, and Sulfa. Review of Systems: Review of Systems is not available for this patient. Vital Signs: Performed on November 20, 2020 10:09 Height - 62.00 in Temperature - 98.5 F Pulse - 91 /min Respiration - 18 /min BP - 97/65 mm(hg) O2 Sat - 93 % (LOW) Pain - 0 Performance Status: 2 - Ambulatory/capable of all self-care, unable to perform any work activities. Up and about more than 50% of waking hours. (ECOG) Physical Examination: ENMT - No mouth sores, no thrush, no jaundice, Raised skin rash involving the left mandibular area, status post biopsy, Respiratory - Poor air entry otherwise clear, Cardiovascular - Regular rate and rhythm of heart, Abdomen - No visible edema or rash, Extremities - Trace edema bilaterally. Lab/Imaging: Test performed on Sep 28, 2020 13:45 Ferritin 55 ng/mL Iron 20 mcg/dL Vitamin B12 819 pg/mL Iron Binding Capacity (TIBC) 231 mcg/dl % Iron Saturation 8.6 % UIBC 211 mcg/dL Retic Count % 5 % WBC 10.3 10 3/uL RBC 2.69 10 6/uL HGB 7.6 g/dL HCT 25.5 % MCV 94.8 fL MCH 28.3 pg MCHC 29.8 g/dL RDW 13.9 % Platelet Count 278 10 3/cmm MPV 9.0 fL Neutrophils 8.31 10 3/uL Lymphocytes 0.9 10 3/uL Monocytes 0.6 10 3/uL Eosinophils 0.3 10 3/uL Basophils 0.1 10 3/uL Neutrophil % 80.3 % Lymphocyte % 8.9 % Monocyte % 6.0 % Eosinophil % 3.2 % Basophils % 0.5 % NRBC % 0 % Test performed on Jul 24, 2020 15:08 Folate, Serum > 20.0 ng/mL Manual Diff No CLOTTED NOTIFIED ALEX @DO NOT REORDER YET UNTIL NOTIFIED BY DELANO JOHNSON. 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 Colonoscopy done on 10/09/2017 showed in the proximal ascending colon a small area of angiectasia there was no ongoing bleeding. 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 Zachariah Johnson in [place] Chronic decub involving buttock area Bone marrow done on 11/13/2017 showed hypercellular bone marrow with red cell hyperplasia and dyspoiesis of red cell precursors and megakaryocytes consistent with a myelodysplasia FISH for MDS negative, flow cytometric and cytogenetic normal. Started on Procrit 60,000 units subcutaneous once a week on 01/14/2018 at that time hemoglobin was 7.9 hematocrit 24.5 Status post Injectafer 750 mg intravenously on May 27 and 2017 Hemoglobin on 06/25/2018 improved to 8.7 from 7.1 prior to the infusion Plan: Discussed with patient regarding her labs white blood count 8.4 hemoglobin 5.8 compared to 7.6 g earlier and prior to that 9.1 g on May 25, 2020 hematocrit 21.6 MCV 105.4 platelets 235,000 CMP within normal limit except glucose 307 and ferritin 44, iron saturation 14.4% iron 29, TIBC 201 Clinically, patient doing reasonably well now in mild to moderate distress due to progressive anemia which could be multifactorial including chronic blood loss from her lower back decub which is being managed by her electric pile driver operator., Because of severe anemia and related symptoms, will consider type and cross and transfuse 2 units of packed RBC., Her anemia work-up is consistent with iron deficiency so we will consider Injectafer 750 mg intravenous today and then return to clinic in 1 week for second weekly dose Patient was advised if there is a worsening of bleeding from decub she need to call her dermatology or need to go to hospital for evaluation. Signed By: Rob Gonzales M.D. <<Signature on File>>
[2020-11-20] MEDS: sodium chloride 0.9% 250 ML 999 ML IV (17:07)
== END 2020-11-20 08:05 | disposition home or self-care (01) ==
LOC: ONCMED 08:08
PROVIDERS: Visit Provider Internal Medicine Hematology & Oncology
DX: D50.0 Iron deficiency anemia secondary to blood loss (chronic) (principal); I99.8 Other disorder of circulatory system; L89.329 Pressure ulcer of left buttock, unspecified stage; L89.319 Pressure ulcer of right buttock, unspecified stage; D46.9 Myelodysplastic syndrome, unspecified; Z86.010 Personal history of colon polyps; Z79.01 Long term (current) use of anticoagulants; Z79.899 Other long term (current) drug therapy
CPT/HCPCS: 80053; 82728; 83540; 83550; 85025; 86850; 86900; 86920; 96365; 99215; J1439; J1940; J7050; P9016

== ENCOUNTER 2020-11-27 06:33 | Outpatient (CLI) | payer MEDICARE, MEDICAID, SELFPAY ==
[2020-11-27] MEDS: ferric carboxy (IVPB) 750 MG in sodium chloride 0.9% (100 ml) 100 ML 345 MG IV (09:41)
[2020-11-28 12:48] LABS: Erythropoietin 37.2 mIU/mL (2.6-18.5)
== END 2020-11-27 06:34 | disposition home or self-care (01) ==
LOC: ONCMED 06:38
PROVIDERS: Visit Provider Internal Medicine Hematology & Oncology
DX: D50.9 Iron deficiency anemia, unspecified (principal)
CPT/HCPCS: 82668; 96365; J1439

== ENCOUNTER 2021-10-30 12:41 | Outpatient (CLI) | payer MEDICARE, MEDICAID, SELFPAY ==
[2021-10-30 13:51] LABS: Basophils % 0.6 %; Eosinophils # 0.2 10^3/uL (0.0-0.8); Eosinophils % 3.1 %; Hematocrit 30.7 % (37.0-47.0); Hemoglobin 9.9 g/dL (11.5-15.3); Lymphocytes % 13.8 %; Mean Corpuscular HGB Conc 32.2 g/dL (30.0-36.0); Mean Corpuscular Hemoglobin 30.4 pg (28.0-34.0); Mean Corpuscular Volume 94.2 fl (81-99); Mean Platelet Volume 10.2 fL (7.4-10.4); Monocytes # 0.4 10^3/uL (0.2-0.9); Monocytes % 5.1 %; Neutrophils # 5.27 10^3/uL (1.8-7.7); Neutrophils % 76.8 %; Nucleated Red Blood Cells % 0 %; Platelet Count 219 10^3/cmm (130-400); Red Blood Count 3.26 10^6/uL (4.1-5.3); Red Cell Distribution Width 13.5 % (12.1-15.1); White Blood Count 6.9 10^3/uL (4.0-10.0)
[2021-10-30 15:46] LABS: Ferritin 64 ng/mL (15-150)
[2021-10-30 15:47] LABS: Iron 51 ug/dL (37-145); Percent Saturation 23.7 % (20-50); Total Iron Binding Capacity 215 mcg/dl; Unsaturated Iron Binding 164 ug/dL (112-347)
--- NOTE | 2021-10-31 10:09 | ONC FU_ITS ---
Dr. Gonzales follow up note Patient: Beth Winkler Unit #: [id number]: 1940 Dicatated By: Rob Gonzales M.D.Date of Visit:Oct 30, 2021 Onc Med Follow-up/Prog Note History of Present Illness: Mrs. Winkler is a 81 year old female with a long-standing history of iron deficiency anemia. She has been on chronic oral iron supplements. She was admitted to the hospital on 08/28/2017 with hemoglobin 5.8 hematocrit 19.2 with a normal white blood count and platelets she was given 2 units of packed RBCs with that her hemoglobin gone up to 8.5 on 08/29/2017. Her stools were checked for occult blood on 08/30/2017 it came back positive. And underwent EGD which showed no gastritis or ulceration. Further anemia workup done on 08/28/2017 showed B12 387, TIBC 396.3, iron 28, folate 12.50. Her bilirubin was 0.2. She was given a dose of Venofer at that time. Peripheral blood smears done on 08/27/2017 showed marked normocytic anemia, with no schistocytes or spherocytes generalized weakness and fatigue and she did receive 2 units of packed RBC . She also had colonoscopy done on 10/09/2017 as per patient couple of polyps were seen otherwise unremarkable. Mrs Winkler underwent bone marrow evaluation on 11/13/2017 which showed hypocellular bone marrow with dyspoiesis of erythrocyte and megakaryocytes. Myelodysplastic syndrome FISH panel was negative. She was given trial of erythropoiesis stimulating agent without much success and finally she was referred to hematology clinic at [facility]. She was seen on 02/04/2019 and lab workup done there including B12, was normal at 661, homocystine was 9.3, white blood count 10.1 hemoglobin was 11.5 and platelet count was 306,000 MCV was 89.3. Ferritin was 42 TIBC was 264 saturation was 16%. Haptoglobin was mildly elevated at 254, LDH was normal at 170, folate was more than 20 She receviedd Injectafer 750 mg on May 26 and 2018. She tolerated it well. Impression was her anemia is multifactorial including secondary iron deficiency and patient being very low risk category for myelodysplastic syndrome and would not consider erythropoietin stimulating agent at this time rather monitor her hemoglobin while on iron supplement and if there is drop in her hemoglobin recommended GI evaluation. Mrs Winkler underwent GI workup on April 07, [address] Zachariah Johnson in [place], [place]. 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 Multiple colon polyps status post hot and cold snare polypectomy. Suboptimal bowel prep. She has history of off and on decubitus and on May 17, 2020 she had steroid injection given to her decubital area. She has impaired mobility and minimally mostly just goes from her bedroom to family room or to the bathroom because of morbid obesity and she is also on CPAP for sleep apnea. on July 24, 2020. Her hemoglobin was 8.9 at that time. She did not have any new symptoms and her follow-up hemoglobin was actually stable. felt that she had compensated anemia and elected to continue monitor her, She received Injectafer 750 mg IV x2 in November 2020 for hemoglobin of 5.8 ferritin 44, iron saturation 14.4% and after that patient lost follow-up till came to clinic on October 30, 2021 with a hemoglobin 9.9 g Came for follow-up, denies any specific complaint except chronic skin inflammation involving the inner thighs and buttock area, as per patient no treatment with Humira is under consideration. Denies any melena or hematochezia denies any hemoptysis or hematemesis denies any jaundice but chronic inflammatory skin disorder due to hidradenitis suppurativa. 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 Medications: Adult Aspirin EC Low Strength 1 (81 mg) Tablet, enteric coated Oral daily, Ascorbic Acid 1 (500 mg) Tablet Oral daily, Cholecalciferol 1 (1000 Units) Tablet Oral b.i.d., Creon 1 (36362 Units) Capsule Delayed Release Particles Oral t.i.d., Demadex 1 (10 mg) Tablet Oral daily, Econazole Nitrate Cream Topical b.i.d., Ferrous Sulfate 1 (325 (65 fe) mg) Tablet Oral daily, Flonase 1 spray(s) (of 50 mcg/act) Suspension Nasal daily, Furosemide 1 Tablet (of 20 mg) Oral daily, Gabapentin 1 Capsule (of 100 mg) Oral at bedtime, Insulin Degludec 30 Units Subcutaneous daily, K-Tab 1 Tablet (of 20 meq) Tablet, controlled release Oral daily, Lisinopril 1 (20 mg) Tablet Oral daily, Minocycline HCl 1 Tablet (of 50 mg) Capsule Oral daily, NovoLOG (100 Units/mL) Subcutaneous Take as Directed, Ocuvite Adult 50+ 1 Capsule Oral daily, [place]-3 1 (1000 mg) Capsule Oral b.i.d., Pletal 1 (100 mg) Tablet Oral b.i.d., Protonix 1 (40 mg) Tablet, enteric coated Oral daily, Proventil HFA 2 puff(s) (of 108 (90 base) mcg/act) Aerosol, solution Inhalation four times a day Allergies: Alginic Acid, Aluminum Hydroxide Gel, bee sting, Calcium Carbonate, dihydroxyaluminum sodium, Loratadine, Magnesium Carbonate, Magnesium Hydroxide, Simethicone, and Sulfa. Review of Systems: Review of Systems is not available for this patient. Vital Signs: Performed on Oct 30, 2021 16:15 Height - 62.00 in Temperature - 97.6 F (LOW) Pulse - 73 /min Respiration - 16 /min BP - 122/75 mm(hg) O2 Sat - 97 % Pain - 7 Fatigue - 5 Performance Status: 2 - Ambulatory/capable of all self-care, unable to perform any work activities. Up and about more than 50% of waking hours. (ECOG) Physical Examination: ENMT - No mouth sores, no thrush, no jaundice, Respiratory - Poor air entry, mild wheezing, Cardiovascular - Regular rate and rhythm of heart, Abdomen - Soft, bowel sounds present, Extremities - 1+ edema bilaterally. Lab/Imaging: Most recent lab results are not available for this patient. 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 Colonoscopy done on 10/09/2017 showed in the proximal ascending colon a small area of angiectasia there was no ongoing bleeding. 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 Zachariah Johnson in [facility] decub involving buttock area Bone marrow done on 11/13/2017 showed hypercellular bone marrow with red cell hyperplasia and dyspoiesis of red cell precursors and megakaryocytes consistent with a myelodysplasia FISH for MDS negative, flow cytometric and cytogenetic normal. Started on Procrit 60,000 units subcutaneous once a week on 01/14/2018 at that time hemoglobin was 7.9 hematocrit 24.5 Status post Injectafer 750 mg intravenously on May 27 and 2017 Hemoglobin on 06/25/2018 improved to 8.7 from 7.1 prior to the infusion Plan: Discussed with patient regarding her labs white blood count 6.9 hemoglobin 9.9 hematocrit 30.7 platelets 219,000, iron studies pending Clinically, patient is doing reasonably well with no new signs symptoms, patient received Injectafer x2 in November 2020 since then lost follow-up, as per patient she could not come because of fear of catching COVID infection. Moreover was followed by her PMD and her hemoglobin has been stable, not requiring any blood transfusion or any parenteral iron. She has well compensated moderate anemia which is multifactorial including due to off-and-on iron deficiency and chronic inflammation like hydradenitis suppurativa., We will check her iron studies if it shows deficiency, will consider parenteral iron otherwise we will monitor, she will return to clinic in 2 months with CBC and iron studies unless her iron studies shows deficiency in that case we will call her back early For iron infusion Signed By: Rob Gonzales M.D. <<Signature on File>>
== END 2021-10-30 12:42 | disposition home or self-care (01) ==
LOC: ONCMED 12:46
PROVIDERS: Visit Provider Internal Medicine Hematology & Oncology
DX: D46.9 Myelodysplastic syndrome, unspecified (principal); D63.8 Anemia in other chronic diseases classified elsewhere; Q27.33 Arteriovenous malformation of digestive system vessel; Z87.19 Personal history of other diseases of the digestive system; L89.329 Pressure ulcer of left buttock, unspecified stage; L89.319 Pressure ulcer of right buttock, unspecified stage
CPT/HCPCS: 36415; 82728; 83540; 83550; 85025; 99214

== ENCOUNTER → 2021-11-15 09:49 | Outpatient (BNVA) | payer MEDICARE, MEDICAID, SELFPAY | PROVIDERS: Visit Provider Internal Medicine Cardiovascular Disease | DX: I50.33 Acute on chronic diastolic (congestive) heart failure (principal); I38 Endocarditis, valve unspecified; I65.23 Occlusion and stenosis of bilateral carotid arteries; I77.9 Disorder of arteries and arterioles, unspecified; E78.5 Hyperlipidemia, unspecified | CPT/HCPCS: 99214 ==

== ENCOUNTER 2022-01-03 09:35 | Oncology outpatient (recurring) (ONCR) | payer MEDICARE, MEDICAID, SELFPAY ==
[2022-01-03 11:04] LABS: Basophils % 0.5 %; Eosinophils # 0.2 10^3/uL (0.0-0.8); Eosinophils % 2.4 %; Hematocrit 33.7 % (37.0-47.0); Lymphocytes # 0.9 10^3/uL (0.8-4.8); Lymphocytes % 12.4 %; Mean Corpuscular HGB Conc 32.6 g/dL (30.0-36.0); Mean Corpuscular Hemoglobin 29.2 pg (28.0-34.0); Mean Corpuscular Volume 89.4 fl (81-99); Mean Platelet Volume 9.8 fL (7.4-10.4); Monocytes # 0.4 10^3/uL (0.2-0.9); Monocytes % 5.5 %; Neutrophils # 5.87 10^3/uL (1.8-7.7); Neutrophils % 78.4 %; Nucleated Red Blood Cells % 0 %; Platelet Count 187 10^3/cmm (130-400); Red Blood Count 3.77 10^6/uL (4.1-5.3); Red Cell Distribution Width 13.6 % (12.1-15.1); White Blood Count 7.5 10^3/uL (4.0-10.0)
[2022-01-03 11:33] LABS: Alanine Aminotransferase 18 U/L (0-33); Albumin Level 3.6 g/dL (3.5-5.2); Alkaline Phosphatase 91 IU/L (35-105); Anion Gap 14.1 (5-19); Aspartate Amino Transferase 24 U/L (0-32); Blood Urea Nitrogen 13 mg/dL (8-23); Calcium 10.7 mg/dL (8.5-10.5); Carbon Dioxide 27 mmol/L (22-29); Chloride 99 mmol/L (98-107); Globulin 3.3 g/dL (1.3-4.6); Glucose 200 mg/dL (65-115); Osmolality Calculated 288 mOsm/kg (285-295); Potassium 4.1 mmol/L (3.5-5.1); Sodium 136 mmol/L (136-145); Total Bilirubin 0.2 mg/dL (0.15-1.2); Total Protein 6.9 g/dL (6.6-8.7)
[2022-01-03 11:46] LABS: Iron 65 ug/dL (37-145); Percent Saturation 27.3 % (20-50); Total Iron Binding Capacity 238 mcg/dl; Unsaturated Iron Binding 173 ug/dL (112-347)
== END 2022-01-03 23:59 | disposition home or self-care (01) ==
LOC: ONCMED 09:35
PROVIDERS: Visit Provider Nurse Practitioner Family
DX: D64.9 Anemia, unspecified (principal)
CPT/HCPCS: 80053; 83540; 83550; 85025; 99214

== ENCOUNTER 2022-02-25 08:48 | Outpatient (CLI) | payer MEDICARE, MEDICAID, SELFPAY ==
--- NOTE | 2022-02-25 10:00 | USCV_ITS ---
Beth Wiknler Age: 81 Gender: F : 1940 Exam Date: 02/25/2022 09:41 Ordering Phys: Venu Mccord MD ([email or web address]) Technologist: Eber Molina [place] [facility] [place]: dyspnea BP: 142 / 62 HR: 75 Rhythm: Sinus Technical Quality: Technically difficult study MEASUREMENTS (Male / Female) Normal Values 2D ECHO LV Diastolic Diameter PLAX 4.1 cm 4.2 - 5.9 / 3.9 - 5.3 cm LV Systolic Diameter PLAX 2.7 cm IVS Diastolic Thickness 1.3 cm 0.6 - 1.0 / 0.6 - 0.9 cm IVS Systolic Thickness 1.5 cm LVPW Diastolic Thickness 1.3 cm 0.6 - 1.0 / 0.6 - 0.9 cm LVPW Systolic Thickness 1.6 cm LVOT Diameter 2.0 cm LV Ejection Fraction 2D Teich 64.1 % LV Ejection Fraction MOD 2C 56.2 % LV Ejection Fraction 2C AL 56.6 % LA Diameter 3.0 cm LA Width 2.7 cm LA Height 5.4 cm RA Width 3.3 cm RA Height 5.1 cm Aorta at Sinotubular Diameter 2.2 cm IVC Diameter 2.0 cm M-MODE Aortic Annulus Diameter 3.1 cm LA Ao Ratio MM 0.8 DOPPLER AV Peak Velocity 202.0 cm/s LVOT Peak Velocity 91.0 cm/s AV Area Cont Eq vti 1.5 cm squared AV Area Cont Eq pk 1.4 cm squared MV Peak Velocity 366.0 cm/s MV Area PHT 2.4 cm squared Mitral E to A Ratio 1.4 MV E' Velocity 163.8 cm/s Mitral E to MV E' Ratio 25.3 Mitral E to LV E' Lateral Ratio 25.3 Mitral E to LV E' Septal Ratio 25.3 TR Peak Velocity 325.8 cm/s TR Peak Gradient 42.5 mmHg TR Mean Velocity 276.7 cm/s TR Mean Gradient 33.9 mmHg TR Velocity Time Integral 94.9 cm Right Atrial Pressure 3.0 mmHg Pulmonary Artery Systolic Pressu 45.5 mmHg RV Acceleration Time 0.1 s RV Ejection Time 0.3 s RV AcT/ET 0.3 FINDINGS Left Ventricle Normal left ventricular size and systolic function, EF 62 %. Mild to moderate left ventricular hypertrophy. Grade III/IV diastolic dysfunction (restrictive filling pattern), severely elevated filling pressures. Right Ventricle The right ventricle is normal in size and function. Right Atrium The right atrium is normal in size. Left Atrium Mildly increased left atrial size. Mitral Valve Thickened mitral valve. Moderate to heavy mitral annular calcification. The peak velocity in the mitral valve was 3.66 m/s. The peak gradient was 54 and a mean gradient of 19 mmHg. The mitral valve area by pressure half-time was 2.41 cm squared. Based on the gradient, the mitral valve seems to have severe stenosis Aortic Valve Thickened aortic valve. Aortic valve sclerosis. Tricuspid Valve Trace tricuspid valve regurgitation. Pulmonic Valve Trace pulmonary valve regurgitation. Pericardium Normal pericardium without effusion. Aorta Normal aortic annulus size. IVC The inferior vena cava pulmonary and hepatic veins appear normal. CONCLUSIONS Normal left ventricular size and systolic function, EF 62 %. Mild to moderate left ventricular hypertrophy. Grade III/IV diastolic dysfunction (restrictive filling pattern), severely elevated filling pressures. Mildly increased left atrial size. Thickened mitral valve. Moderate to heavy mitral annular calcification. Possibly severe mitral valve stenosis( the peak velocity in the mitral valve was 3.66 m/s. The peak gradient was 54 and a mean gradient of 19 mmHg. ) Aortic valve sclerosis. Trace tricuspid valve regurgitation. Estimated pulmonary artery peak systolic pressure 45 mmHg There is no pericardial effusion. Compared to the study from 06/30/2020, there is worsening of the gradient across the mitral valve. Dr Venu Mccord MD [facility] (Electronically Signed) Final Date: 25 February 2022 19:44 S
== END 2022-02-25 08:49 | disposition home or self-care (01) ==
LOC: RAD 08:49
PROVIDERS: Visit Provider Internal Medicine Cardiovascular Disease
DX: R06.00 Dyspnea, unspecified (principal); I38 Endocarditis, valve unspecified; I35.0 Nonrheumatic aortic (valve) stenosis; I34.8 Other nonrheumatic mitral valve disorders; I36.1 Nonrheumatic tricuspid (valve) insufficiency; I65.23 Occlusion and stenosis of bilateral carotid arteries; I77.9 Disorder of arteries and arterioles, unspecified
CPT/HCPCS: 93306; 93880

== ENCOUNTER 2022-02-25 08:48 | Outpatient (CLI) | payer MEDICARE, MEDICAID, SELFPAY ==
--- NOTE | 2022-02-25 09:15 | USCV_ITS ---
Beth Winkler Age: 81 Gender: F : 1940 Exam Date: 02/25/2022 09:21 Ordering Phys: Venu Mccord MD ([email or web address]) Technologist: Eber Molina [place] [facility] [place]: carotid artery disease Risk Factors: Previous Vascular Surgery: Right Brachial BP: / Left Brachial BP: / Right Left Velocity (cm/s) Spectral Plaque Velocity (cm/s) Spectral Plaque Syst/Diast Broadening Syst/Diast Broadening 105.70/6.70 Prox CCA 113.80/ 18.60 53.80/ 11.50 Mid CCA 99.40 / 17.10 90.30/ 15.40 Distal CCA 108.80/ 18.60 103.50/20.40 Prox ICA 76.10 / 14.00 109.70/19.00 Mid ICA 81.00 / 15.00 89.40/ 17.60 Distal ICA 75.00 / 13.00 443.60 ECA 185.00 2.04 ICA/CCA 0.71 Antegrade Vertebral Antegrade 55.90/ 15.60 cm/s 87.00/ 18.60 cm/s Bi Subclavian Bi 116.9 124.3 0 0 FINDINGS Mild to moderate heterogenous plaques at the proximal internal carotid artery bilaterally. Heavy heterogenous plaques in the proximal external carotid artery on the right side Moderate to heavy heterogeneous plaques of the left proximal external carotid artery Mild diffuse plaques in the common carotid arteries bilaterally Antegrade flow in the vertebral arteries bilaterally Normal Doppler velocity in the subclavian and vertebral arteries bilaterally CONCLUSIONS Mild to moderate heterogenous plaques at the proximal internal carotid arteries bilaterally, suggesting less than 50% stenosis. Heavy heterogenous plaques in the proximal external carotid artery on the right side with velocity elevation suggestive of hemodynamically significant stenosis Moderate to heavy heterogeneous plaques of the left proximal external carotid artery with velocity elevation suggestive of hemodynamically significant stenosis. Mild diffuse plaques in the common carotid arteries bilaterally Compared to the study from 05/05/2019, there may not be a significant change Dr Venu Mccord MD [facility] (Electronically Signed) Final Date: 27 February 2022 23:02 S
== END 2022-02-25 08:49 | disposition home or self-care (01) ==
LOC: RAD 08:49
PROVIDERS: Visit Provider Internal Medicine Cardiovascular Disease
DX: I65.23 Occlusion and stenosis of bilateral carotid arteries (principal); I77.9 Disorder of arteries and arterioles, unspecified
CPT/HCPCS: 93880

== ENCOUNTER 2022-04-05 07:49 | Oncology outpatient (recurring) (ONCR) | payer MEDICARE, MEDICAID, SELFPAY ==
[2022-04-05 08:33] LABS: Basophils % 0.3 %; Eosinophils # 0.1 10^3/uL (0.0-0.8); Eosinophils % 1.7 %; Hematocrit 30.2 % (37.0-47.0); Hemoglobin 9.3 g/dL (11.5-15.3); Lymphocytes # 0.8 10^3/uL (0.8-4.8); Mean Corpuscular HGB Conc 30.8 g/dL (30.0-36.0); Mean Corpuscular Volume 97.4 fl (81-99); Mean Platelet Volume 10.2 fL (7.4-10.4); Monocytes # 0.4 10^3/uL (0.2-0.9); Neutrophils # 5.77 10^3/uL (1.8-7.7); Nucleated Red Blood Cells % 0 %; Platelet Count 187 10^3/cmm (130-400); Red Cell Distribution Width 13.8 % (12.1-15.1); White Blood Count 7.2 10^3/uL (4.0-10.0)
[2022-04-05 09:03] LABS: Alanine Aminotransferase 12 U/L (0-33); Albumin Level 3.4 g/dL (3.5-5.2); Alkaline Phosphatase 90 U/L (35-105); Anion Gap 12.9 (5-19); Aspartate Amino Transferase 15 U/L (0-32); Blood Urea Nitrogen 10 mg/dL (8-23); Calcium 10.6 mg/dL (8.5-10.5); Carbon Dioxide 28 mmol/L (22-29); Chloride 99 mmol/L (98-107); Ferritin 103 ng/mL (15-150); Globulin 2.8 g/dL (1.3-4.6); Glucose 214 mg/dL (65-115); Iron 92 ug/dL (37-145); Osmolality Calculated 285 mOsm/kg (285-295); Percent Saturation 47.9 % (20-50); Potassium 4.9 mmol/L (3.5-5.1); Sodium 135 mmol/L (136-145); Total Bilirubin 0.2 mg/dL (0.15-1.2); Total Iron Binding Capacity 192 mcg/dl; Total Protein 6.2 g/dL (6.6-8.7); Unsaturated Iron Binding 100 ug/dL (112-347)
== END 2022-04-05 23:59 | disposition home or self-care (01) ==
LOC: ONCMED 07:51
PROVIDERS: PCP Family Medicine; Visit Provider Nurse Practitioner Family
DX: D46.9 Myelodysplastic syndrome, unspecified (principal); L89.329 Pressure ulcer of left buttock, unspecified stage; L89.319 Pressure ulcer of right buttock, unspecified stage; D50.9 Iron deficiency anemia, unspecified; Z79.899 Other long term (current) drug therapy
CPT/HCPCS: 36415; 80053; 82728; 83540; 83550; 85025; 99214

== ENCOUNTER 2022-05-08 17:05 | Emergency (ER) | payer MEDICARE, MEDICAID, SELFPAY ==
[2022-05-08 17:11] VITALS: BP 120/34; PULSE 89; RESP 18; TEMP 36.9; O2SAT 95; BMI 45.3
--- NOTE | 2022-05-08 17:29 | ED_ITS ---
HPI - URI/Sore Throat General: Chief Complaint: Upper Respiratory Infection Stated Complaint: Dr. Angeles sent for low O2 Time Seen by Provider: 05/08/22 17:28 History of Present Illness: 82-year-old female comes in today for evaluation after testing positive for COVID-19 at physician's office this morning. Patient denies any significant changes in health status. Patient appears chronically ill. Patient does use routine oxygen at home along with respiratory treatments. Patient has a history of peripheral artery disease, coronary artery disease, dyslipidemia, anemia, valvular heart disease, and myelodysplastic syndrome. Review of patient's medications note insulin, a PPI, gabapentin suggesting some neuropathy, diabetes mellitus, and GERD. Patient reports symptoms starting on Friday. Patient was seen by primary care this morning and was referred to the ED after testing positive for COVID for further evaluation. Patient reports no significant symptoms and appears nontoxic. Patient has not taken any of the COVID-19 vaccines. Associated symptoms: Deny chest pain or fever(s) Review of Systems Const: Reports: malaise; Denies: fever(s) Card: Denies: chest pain Resp: Reports: non-productive cough PFSH ED PFSH: Medical History (Updated 05/08/22 @ 19:05 by NUNO Lombardi) Acute hypokalemia MATTIE (acute kidney injury) Anemia COPD (chronic obstructive pulmonary disease) Diabetes Heart failure Myelodysplasia (myelodysplastic syndrome) PAD (peripheral artery disease) Pneumonia Pneumonia due to COVID-19 virus Sleep apnea Surgical History Hx of appendectomy Hx of cataract extraction Hx of section Hx of cholecystectomy Hx of hysterectomy Family History Mother CAD (coronary artery disease) Diabetes Daughter Diabetes Lung disease Suicide Son Diabetes Lung disease Denies family history of Clotting disorder Dementia Chronic kidney disease (CKD) Anesthesia complication Bleeding disorder Cancer Stroke Social History Smoking and tobacco status: former smoker (smoked x 8 years) Alcohol intake: never Physical Exam Const: COMMON NORMALS: alert HENMT: COMMON NORMALS: normocephalic HEAD & SCALP: normocephalic THROAT: posterior oropharynx normal Resp: COMMON NORMALS: normal respiratory effort AUSCULTATION: diminished lung sounds bilateral in the lower lung rich Cardio: COMMON NORMALS: regular rate and regular rhythm RATE: regular rate RHYTHM: regular rhythm GI: COMMON NORMALS: non-tender : COMMON NORMALS: Yes no CVA tenderness BLADDER/KIDNEY EXAM: Yes no CVA tenderness Back/Pelvis: COMMON NORMALS: no CVA tenderness Neuro: SENSORIUM/ORIENTATION: Yes alert Skin: COMMON NORMALS: turgor normal GENERAL SKIN EXAM: turgor normal Course Vital Signs: Vital signs: Vital Signs Temperature 98.5 F 05/08/22 17:11 Pulse Rate 78 05/08/22 17:37 Respiratory Rate 18 05/08/22 17:11 Blood Pressure 141/70 05/08/22 17:37 Pulse Oximetry 98 05/08/22 17:37 Oxygen Delivery Me thod 05/08/22 17:11 MDM - URI/Sore Throat Medical Decision Making Patient was referred to the ER for further evaluation due to a positive test result of COVID-19 and a oxygen saturation of 88% at primary care office. On exam patient's oxygen saturation was 99% on 2 L of oxygen. Patient does use oxygen at home routinely. Lungs are decreased in the bases bilaterally. No increased swelling is noted in the extremities. Patient appears nontoxic. Differential diagnosis includes respiratory failure, pneumonia, COVID-19, CHF. X-ray was unremarkable. Laboratory values were unremarkable. Patient does have some chronic anemia which was stable on her CBC. Reviewed exam with patient and family with recommendations for continued home care and follow-up or return to the ER for worsening symptoms. Family reported understanding agreed to plan. Lab Data : 05/08/22 18:12 05/08/22 18:12 Laboratory Results WBC 8.7 10^3/uL (4.0-10.0) 05/08/22 18:12 RBC 3.13 10^6/uL (4.1-5.3) L 05/08/22 18:12 Hgb 9.6 g/dL (11.5-15.3) L 05/08/22 18:12 Hct 30.9 % (37.0-47.0) L 05/08/22 18:12 MCV 98.7 fl (81-99) 05/08/22 18: MCH 30.7 pg (28.0-34.0) 05/08/22 18:12 MCHC 31.1 g/dL (30.0-36.0) 05/08/22 18:12 RDW 14.5 % (12.1-15.1) 05/08/22 18:12 Plt Count 241 10^3/cmm (130-400) 05/08/22 18:12 MPV 9.1 fL (7.4-10.4) 05/08/22 18:12 Neut % (Auto) 79.8 % 05/08/22 18:12 Lymph % (Auto) 11.7 % 05/08/22 18:12 Whitley % (Auto) 5.1 % 05/08/22 18:12 Eos % (Auto) 2.1 % 05/08/22 18:12 Baso % (Auto) 0.3 % 05/08/22 18:12 Neut # (Auto) 6.91 10^3/uL (1.8-7.7) 05/08/22 18:12 Lymph # (Auto) 1.0 10^3/uL (0.8-4.8) 05/08/22 18:12 Whitley # (Auto) 0.4 10^3/uL (0.2-0.9) 05/08/22 18:12 Eos # (Auto) 0.2 10^3/uL (0.0-0.8) 05/08/22 18:12 Baso # (Auto) 0.0 10^3/uL (0.0-0.1) 05/08/22 18:12 Nucleated RBC % (auto) 0 % 05/08/22 18:12 Nucleated RBCs # 0.0 /100WBC 05/08/22 18:12 Sodium 141 mmol/L (136-145) 05/08/22 18:12 Potassium 4.0 mmol/L (3.5-5.1) 05/08/22 18:12 Chloride 100 mmol/L (98-107) 05/08/22 18:12 Carbon Dioxide 32 mmol/L (22-29) H 05/08/22 18:12 Anion Gap 13.0 (5-19) 05/08/22 18:12 BUN 13 mg/dL (8-23) 05/08/22 18:12 Creatinine 0.8 mg/dL (0.5-0.9) 05/08/22 18:12 GFR Calculation Not Reportable 05/08/22 18:12 Glucose 103 mg/dL (65-115) 05/08/22 18:12 Calculated Osmolality 292 mOsm/kg (285-295) 05/08/22 18:12 Lactic Acid 1.9 mmol/L (0.5-2.2) 05/08/22 18:12 Calcium 10.7 mg/dL (8.5-10.5) H 05/08/22 18:12 Total Bilirubin 0.2 mg/dL (0.15-1.2) 05/08/22 18:12 AST 14 U/L (0-32) 05/08/22 18:12 ALT 10 U/L (0-33) 05/08/22 18:12 Alkaline Phosphatase 97 U/L (35-105) 05/08/22 18:12 Total Protein 6.9 g/dL (6.6-8.7) 05/08/22 18:12 Albumin 4.0 g/dL (3.5-5.2) 05/08/22 18:12 Globulin 2.9 g/dL (1.3-4.6) 05/08/22 18:12 Discharge Plan Discharge Patient Disposition: Home Clinical Impression: COVID-19 Condition: Stable Prescriptions: No Action dorzolamide 2 % drops 1 drp ophthalmic (eye) BID ondansetron HCl 4 mg tablet 4 mg PO .prn PRN (Reason: nausea and vomiting) ipratropium-albuterol 0.5 mg-3 mg(2.5 mg base)/3 mL solution for nebulization 3 ml inhalation QID PRN (Reason: shortness of breath or wheezing) clindamycin HCl 300 mg capsule 300 mg PO TID latanoprost 0.005 % drops 1 drp ophthalmic (eye) BEDTIME Rx Instructions: (BOTH EYES) cilostazol 100 mg tablet 100 mg PO BID atorvastatin 20 mg tablet 20 mg PO BEDTIME torsemide 20 mg tablet 20 mg PO BID Hold Instructions: Resume on 07/17/20. pantoprazole 40 mg tablet,delayed release (DR/EC) 40 mg PO DAILY mupirocin 2 % ointment 1 applic TOPICAL DAILY albuterol sulfate 90 mcg/actuation HFA aerosol inhaler 2 puff INHALATION Q6H PRN (Reason: Shortness Of Breath) fluticasone propionate 50 mcg/actuation spray,suspension 1 spray INTRANASAL DAILY Humalog KwikPen Insulin 100 unit/mL insulin pen See Rx Instructions .ROUTE .COMPLEX Rx Instructions: PER SLIDING SCALE Creon 24,000-76,000 -120,000 unit capsule,delayed release(DR/EC) 2 cap PO TID Anoro Ellipta 62.5-25 mcg/actuation blister with device 2 ea inhalation DAILY aspirin 81 mg Tablet,Chewable 81 mg PO DAILY gabapentin 100 mg capsule 100 mg PO TID clonidine HCl 0.1 mg tablet 0.2 mg PO BID Basaglar KwikPen U-100 Insulin 100 unit/mL (3 mL) insulin pen 135 unit SUBCUT DAILY Rx Instructions: Nasim Discharge Orders: Discharge ED (Routine); Ordered 05/08/22 Ordered By: Jaxson Castillo Referrals: Deep Angeles DO [Primary Care Provider] - Discharge Diet: Usual diet Discharge Activity: Increase activity as tolerated Patient Instructions: COVID-19 and Chronic Health Conditions (ED) Activity Restrictions/Additional Instructions: Home and rest. Drink plenty of fluids. Continue with routine care as directed. Use nebulizer treatments routinely to help maintain aeration of the lung sounds. Use albuterol inhaler for breakthrough shortness of breath. Return to ER for worsening difficulty breathing, inability to hold fluids down, or new concerns such as severe chest pain or blood in sputum. Coding Level of Care Code ED Paper Plate Machine Tender for Yasir Fwd Exam Detailed
--- NOTE | 2022-05-08 17:29 | XRR_ITS ---
PROCEDURE INFORMATION: Exam: XR Chest Exam date and time: 05/08/2022 5:39 PM Age: 82 years old Clinical indication: Cough and shortness of breath; Additional info: SOB, hypoxia, covid + TECHNIQUE: Imaging protocol: Radiologic exam of the chest. Views: 1 view. COMPARISON: CR (CHEST, ) 07/02/2020 8:48 AM FINDINGS: Lungs: Streaky bibasilar atelectasis, right greater than left. Pneumonia should be excluded clinically. Pleural spaces: Unremarkable. No pleural effusion. No pneumothorax. Heart/Mediastinum: Stable cardiomediastinal silhouette. Bones/joints: Degenerative changes of the spine seen. XR/XR chest 1V portable [id number] IMPRESSION: Bibasilar atelectasis versus pneumonia. Clinical correlation is recommended.
[2022-05-08 17:37] VITALS: BP 141/70; PULSE 78; O2SAT 98
[2022-05-08 18:24] LABS: Basophils % 0.3 %; Eosinophils # 0.2 10^3/uL (0.0-0.8); Eosinophils % 2.1 %; Hematocrit 30.9 % (37.0-47.0); Hemoglobin 9.6 g/dL (11.5-15.3); Lymphocytes % 11.7 %; Mean Corpuscular HGB Conc 31.1 g/dL (30.0-36.0); Mean Corpuscular Hemoglobin 30.7 pg (28.0-34.0); Mean Corpuscular Volume 98.7 fl (81-99); Mean Platelet Volume 9.1 fL (7.4-10.4); Monocytes # 0.4 10^3/uL (0.2-0.9); Monocytes % 5.1 %; Neutrophils # 6.91 10^3/uL (1.8-7.7); Neutrophils % 79.8 %; Nucleated Red Blood Cells % 0 %; Platelet Count 241 10^3/cmm (130-400); Red Blood Count 3.13 10^6/uL (4.1-5.3); Red Cell Distribution Width 14.5 % (12.1-15.1); White Blood Count 8.7 10^3/uL (4.0-10.0)
[2022-05-08 18:45] LABS: Alanine Aminotransferase 10 U/L (0-33); Alkaline Phosphatase 97 U/L (35-105); Aspartate Amino Transferase 14 U/L (0-32); Blood Urea Nitrogen 13 mg/dL (8-23); Calcium 10.7 mg/dL (8.5-10.5); Carbon Dioxide 32 mmol/L (22-29); Chloride 100 mmol/L (98-107); Globulin 2.9 g/dL (1.3-4.6); Glucose 103 mg/dL (65-115); Osmolality Calculated 292 mOsm/kg (285-295); Sodium 141 mmol/L (136-145); Total Bilirubin 0.2 mg/dL (0.15-1.2); Total Protein 6.9 g/dL (6.6-8.7)
[2022-05-08 18:46] LABS: Lactic Sepsis W/Reflex 1.9 mmol/L (0.5-2.2)
== END 2022-05-08 19:20 | disposition home or self-care (01) ==
PROVIDERS: Emergency Provider Nurse Practitioner Family; PCP Family Medicine
DX: U07.1 COVID-19 (principal); Z79.82 Long term (current) use of aspirin; Z79.4 Long term (current) use of insulin; Z87.891 Personal history of nicotine dependence; J44.9 Chronic obstructive pulmonary disease, unspecified; E11.9 Type 2 diabetes mellitus without complications
CPT/HCPCS: 36415; 71045; 80053; 83605; 85025; 99284

== ENCOUNTER 2022-08-20 16:10 | Inpatient (IN) | payer MEDICARE, MEDICAID, SELFPAY ==
[2022-08-20] VITALS (12 sets, daily range): BP systolic 82–175; BP diastolic 48–97; PULSE 94–113; RESP 16–31; TEMP 36.6–37.7; O2SAT 76–99; BMI 49.6
--- NOTE | 2022-08-20 16:47 | XRR_ITS ---
PROCEDURE INFORMATION: Exam: XR Chest Exam date and time: 08/20/2022 5:02 PM Age: 82 years old Clinical indication: Dyspnea TECHNIQUE: Imaging protocol: Radiologic exam of the chest. Views: 1 view. COMPARISON: CR XR chest 1V portable [id number] 05/08/2022 5:39 PM FINDINGS: Lungs: See Pleural spaces finding. Pleural spaces: Moderate sized bilateral pleural effusions with adjacent compressive atelectasis or infiltrate. Heart/Mediastinum: The heart border is obscured by the pleural effusions. Bones/joints: Unremarkable. XR/XR chest 1V portable [id number] IMPRESSION: Moderate sized bilateral pleural effusions with adjacent compressive atelectasis or infiltrate.
--- NOTE | 2022-08-20 16:49 | ECG_ITS ---
[facility] Test Date: 2022-08-20 Pat Name: Beth Winkler Department: Room: Gender: Female Commercial Fisher: : 1940 Requested By: Harris Jordan Order Number: [id number] Leila MD: Livan Edwards M.D. Measurements Intervals [place] Rate: 99 P: 0 [place]: 0 QRS: 168 QRSD: 94 T: 78 QT: 328 QTc: 422 Interpretive Statements Sinus rhythm POSSIBLE RIGHT VENTRICULAR HYPERTROPHY [SOME/ALL OF: PROMINENT R IN V1, LATE TRANSITION, RAD, LINDA, SSS] POSSIBLE ANTERIOR MYOCARDIAL INFARCTION , OF INDETERMINATE AGE [30 ms Q WAVE IN V3/V4, OR R < 0.2 mV IN V4] Compared to ECG 07/03/2020 12:43:56 Myocardial infarct finding still present Electronically Signed On 08-20-2022 17:35:30 REHABILITATION SERVICES AIDE by Livan Edwards M.D. [email or web address] medical [email or web address] - boardman, inc.SR Labs/store/OM/[id number]
--- NOTE | 2022-08-20 16:49 | W.ED.SOB ---
HPI - SOB/Dyspnea General: Chief Complaint: Shortness of Breath/Dyspnea Stated Complaint: SOB Time Seen by Provider: 08/20/22 16:31 Source: patient and family Limitations: no limitations History of Present Illness: HPI Narrative: See nurse assessment. Patient states she is increasing shortness of breath since Friday 3 days ago. She denies any other problems. She states she has had no fever. She denies any cough or peripheral edema. She denies any chest pain. She denies any abdominal pain. She does have a history of COPD and wears oxygen at 3 L/min by nasal cannula normally. She states she has had to increase this to 5 L/min at home recently. She also has a possible history of COVID in May last year. She has aplastic anemia, carotid artery disease, CHF, peripheral vascular disease. She states she quit smoking many years ago. Associated symptoms: Deny abdominal pain, chest pain, fever(s), nausea, palpitations or vomiting Review of Systems Const: Denies: fever(s) or chills Eyes: Denies: change in vision ENMT: Denies: throat pain Card: Denies: chest pain or palpitations Resp: Reports: dyspnea; Denies: productive cough, non-productive cough, wheezing or stridor GI: Denies: abdominal pain, nausea or vomiting : Denies: flank pain Musc: Denies: neck pain or back pain Skin/Breast: Denies: rash or pruritus Neuro: Denies: headache(s) or numbness in extremities Psych: Denies: anxiety Luke/Lymph: Denies: enlarged lymph nodes PFSH ED PFSH: Medical History Acute hypokalemia MATTIE (acute kidney injury) Anemia COPD (chronic obstructive pulmonary disease) Diabetes Heart failure Myelodysplasia (myelodysplastic syndrome) PAD (peripheral artery disease) Pneumonia Pneumonia due to COVID-19 virus Sleep apnea Surgical History Hx of appendectomy Hx of cataract extraction Hx of section Hx of cholecystectomy Hx of hysterectomy Family History Mother CAD (coronary artery disease) Diabetes Daughter Diabetes Lung disease Suicide Son Diabetes Lung disease Denies family history of Clotting disorder Dementia Chronic kidney disease (CKD) Anesthesia complication Bleeding disorder Cancer Stroke Social History Smoking and tobacco status: former smoker (smoked x 8 years) Alcohol intake: never Physical Exam Const: COMMON NORMALS: no acute distress, patient oriented x3, no limitations and well nourished GENERAL APPEARANCE: cooperative HENMT: COMMON NORMALS: normocephalic and atraumatic HEAD & SCALP: normocephalic and atraumatic FACE & SINUS: normal facial exam Eye: COMMON NORMALS: EOMs intact bilaterally Neck/C-Spine: COMMON NORMALS: full ROM, no lymphadenopathy, supple and no meningeal signs GENERAL: Yes normal visual inspection Lymph: LYMPHATIC: no lymphadenopathy noted Chest: COMMONS NORMALS: normal inspection of the chest and normal palpation of entire chest wall CHEST: No Ecchymosis present and No rash Resp: OTHER: Rhonchi bilaterally. No tachypnea. Oxygen saturation is 96% on 5 L/min by nasal cannula. Cardio: COMMON NORMALS: regular rhythm and Peripheral pulses 2+ throughout JUGULAR VENOUS DISTENTION: no JVD RHYTHM: regular rhythm PERIPHERAL PULSES: Peripheral pulses 2+ throughout OTHER: Mild tachycardia around 103 sinus tachycardia on monitor. GI: COMMON NORMALS: Normal to inspection, nondistended, normoactive bowel sounds present and non-tender : COMMON NORMALS: Yes no CVA tenderness BLADDER/KIDNEY EXAM: Yes no CVA tenderness Back/Pelvis: COMMON NORMALS: no CVA tenderness Extremity: COMMON NORMALS: normal to inspection, full ROM and capillary refill normal OTHER: Trace peripheral edema bilaterally. Neuro: COMMON NORMALS: patient oriented x3, CN's II-XII intact bilaterally, no focal motor deficits and no sensory deficits noted MENINGEAL SIGNS: Yes no meningeal signs Psych: COMMON NORMALS: mental status grossly normal and Normal thought process present THOUGHT PROCESS: Normal thought process present Skin: COMMON NORMALS: no rashes or lesions noted and no wounds GENERAL SKIN EXAM: no rashes or lesions noted Course Vital Signs: Vital signs: Vital Signs Temperature 98.2 F 08/20/22 16:19 Pulse Rate 105 H 08/20/22 17:40 Respiratory Rate 29 H 08/20/22 17:40 Blood Pressure 160/74 08/20/22 16:19 Pulse Oximetry 97 08/20/22 17:40 Oxygen Delivery Me thod 08/20/22 16:19 Oxygen Flow Rate 5 08/20/22 16:19 MDM - SOB/Dyspnea Medical Decision Making Patient likely having CHF exacerbation. 1820: Discussed case with Dr. Tyler hospitalist. Admit as inpatient to cardiac stepdown unit Lab Data 08/20/22 16:41 08/20/22 16:41 Labs/Radiology: Radiology Impressions Chest X-Ray 08/20/22 16:47 IMPRESSION: Moderate sized bilateral pleural effusions with adjacent compressive atelectasis or infiltrate. Laboratory Results WBC 8.2 10^3/uL (4.0-10.0) 08/20/22 16:41 RBC 3.53 10^6/uL (4.1-5.3) L 08/20/22 16:41 Hgb 10.9 g/dL (11.5-15.3) L 08/20/22 16:41 Hct 35.0 % (37.0-47.0) L 08/20/22 16:41 MCV 99.2 fl (81-99) H 08/20/22 16:41 MCH 30.9 pg (28.0-34.0) 08/20/22 16:41 MCHC 31.1 g/dL (30.0-36.0) 08/20/22 16:41 RDW 15.3 % (12.1-15.1) H 08/20/22 16:41 Plt Count 206 10^3/cmm (130-400) 08/20/22 16:41 MPV 9.3 fL (7.4-10.4) 08/20/22 16:41 Neut % (Auto) 83.3 % 08/20/22 16:41 Lymph % (Auto) 8.0 % 08/20/22 16:41 [place] % (Auto) 5.5 % 08/20/22 16:41 Eos % (Auto) 1.5 % 08/20/22 16:41 Baso % (Auto) 0.4 % 08/20/22 16:41 Neut # (Auto) 6.81 10^3/uL (1.8-7.7) 08/20/22 16:41 Lymph # (Auto) 0.7 10^3/uL (0.8-4.8) L 08/20/22 16:41 [place] # (Auto) 0.5 10^3/uL (0.2-0.9) 08/20/22 16:41 Eos # (Auto) 0.1 10^3/uL (0.0-0.8) 08/20/22 16:41 Baso # (Auto) 0.0 10^3/uL (0.0-0.1) 08/20/22 16:41 Nucleated RBC % (auto) 0.5 % 08/20/22 16:41 Nucleated RBCs # 0.0 /100WBC 08/20/22 16:41 D-Dimer 0.47 ug/mIFEU (0-0.59) 08/20/22 16:41 Sodium 140 mmol/L (136-145) 08/20/22 16:41 Potassium 4.7 mmol/L (3.5-5.1) 08/20/22 16:41 Chloride 101 mmol/L (98-107) 08/20/22 16:41 Carbon Dioxide 30 mmol/L (22-29) H 08/20/22 16:41 Anion Gap 13.7 (5-19) 08/20/22 16:41 BUN 15 mg/dL (8-23) 08/20/22 16:41 Creatinine 0.7 mg/dL (0.5-0.9) 08/20/22 16:41 GFR Calculation Not Reportable 08/20/22 16:41 Glucose 257 mg/dL (65-115) H 08/20/22 16:41 Calculated Osmolality 300 mOsm/kg (285-295) H 08/20/22 16:41 Lactic Acid 2.1 mmol/L (0.5-2.2) 08/20/22 16:41 Calcium 11.3 mg/dL (8.5-10.5) H 08/20/22 16:41 Troponin T Baseline 26 ng/L (0-10) H 08/20/22 16:41 NT-Pro-B Natriuret Pep 495 pg/mL (0-450) H 08/20/22 16:41 Influenza Type A Ag negative (Negative) 08/20/22 16:55 Influenza Type B Ag negative (Negative) 08/20/22 16:55 SARS-CoV-2 Ag (Rapid) negative (Negative) 08/20/22 16:55 Imaging Data CXR: My impression: Moderate pulm edema bilaterally. Moderate cardiomegaly. Bilateral mild pleural effusions. Consistent with congestive heart failure. EKG Data EKG 1: I personally reviewed and interpreted this EKG as follows: EKG Interpretation Date: 08/20/22 EKG interpretation time: 17:18 Interpretation: Impression normal sinus rhythm heart rate 99. Right axis. Normal QRS, normal NE interval, normal QT interval, normal P waves, normal T waves. Normal ST segment. Discharge Plan Discharge Patient Disposition: Admitted As Inpatient Clinical Impression: Breath shortness, Acute on chronic diastolic (congestive) heart failure Pulmonary edema Qualifiers: Chronicity: acute Qualified Code(s): J81.0 - Acute pulmonary edema Type 2 diabetes mellitus Qualifiers: Diabetes mellitus residential insulin use: with terminal make up operator use Diabetes mellitus complication status: with hyperglycemia Qualified Code(s): E11.65 - Type 2 diabetes mellitus with hyperglycemia Condition: Stable Coding Level of Care Code ED Network Program Manager for Yasir Mansfield
[2022-08-20 17:05] LABS: Basophils % 0.4 %; Eosinophils # 0.1 10^3/uL (0.0-0.8); Eosinophils % 1.5 %; Hemoglobin 10.9 g/dL (11.5-15.3); Lymphocytes # 0.7 10^3/uL (0.8-4.8); Mean Corpuscular HGB Conc 31.1 g/dL (30.0-36.0); Mean Corpuscular Hemoglobin 30.9 pg (28.0-34.0); Mean Corpuscular Volume 99.2 fl (81-99); Mean Platelet Volume 9.3 fL (7.4-10.4); Monocytes # 0.5 10^3/uL (0.2-0.9); Monocytes % 5.5 %; Neutrophils # 6.81 10^3/uL (1.8-7.7); Neutrophils % 83.3 %; Nucleated Red Blood Cells % 0.5 %; Platelet Count 206 10^3/cmm (130-400); Red Blood Count 3.53 10^6/uL (4.1-5.3); Red Cell Distribution Width 15.3 % (12.1-15.1); White Blood Count 8.2 10^3/uL (4.0-10.0)
[2022-08-20 17:30] LABS: D Dimer 0.47 ug/mIFEU (0-0.59)
[2022-08-20 17:34] LABS: Influenza A by IFA negative (Negative); Influenza B by IFA negative (Negative); SARS Covid-2 Antigen negative (Negative)
[2022-08-20 17:34] LABS: Lactic Sepsis W/Reflex 2.1 mmol/L (0.5-2.2)
[2022-08-20 17:37] LABS: Troponin(5th) Baseline 26 ng/L (0-10)
[2022-08-20] MEDS: FUROsemide 10 mg/mL SDV 10mL 60 MG IVP (17:43)
[2022-08-20 17:46] LABS: Anion Gap 13.7 (5-19); Blood Urea Nitrogen 15 mg/dL (8-23); Calcium 11.3 mg/dL (8.5-10.5); Carbon Dioxide 30 mmol/L (22-29); Chloride 101 mmol/L (98-107); Glucose 257 mg/dL (65-115); NT Pro B Type Natriuretic Pept 495 pg/mL (0-450); Osmolality Calculated 300 mOsm/kg (285-295); Potassium 4.7 mmol/L (3.5-5.1); Sodium 140 mmol/L (136-145)
[2022-08-20 18:48] LABS: Reflex Lactate Order REFLEX LACTIC ORDERD
--- NOTE | 2022-08-20 18:58 | P.HP_ITS ---
Providers/Chief Complaint Admitting Physician: Milan Tyler Primary Care Provider: Deep Angeles DO Chief Complaint: SOB History of Present Illness Pleasant 82-year-old lady with history of HFpEF, possibly severe aortic stenosis, COPD, GREY on CPAP, chronically on 3 L nasal cannula oxygen, DM2, hidradenitis suppurativa and other, but he is has been experiencing progressive dyspnea, to the point of not only having with exertion, now also at rest, severe orthopnea, cannot lay flat, some lower extremity edema. Denies any chest pain or pressure. Has not missed any of her medications. Denies any other recent illness. In ER she found initially to be requiring 6 L of nasal cannula oxygen. Troponin mildly elevated at baseline 26, EKG without signs of acute ischemia, possible RV hypertrophy, D-dimer unremarkable. She is afebrile, without leukocytosis. Chemistry panel unremarkable with glucose 257. NT proBNP 495. Rapid COVID and influenza antigens negative. Chest x-ray with new moderate- sized bilateral pleural effusions with adjacent compressive atelectasis or infiltrate. She states she is normally nonambulatory. Transfers from bed to chair if they are close enough. In case of respiratory arrest she would be okay with transient intubation, however, in case of cardiopulmonary arrest or cardiac arrest, does not want CPR in that situation. Review of Systems Const: Denies: fever(s), chills, body aches or malaise Eyes: Denies: change in vision, eye discomfort or eye redness ENMT: Denies: throat pain, oral sores or ear or mastoid pain Card: Reports: edema, dyspnea on exertion and orthopnea; Denies: chest pain or pre-syncope Resp: Denies: dyspnea, productive cough, change in phlegm color or hemoptysis GI: Denies: abdominal pain, nausea, vomiting, diarrhea, constipation, hematochezia or melena : Denies: flank pain, urinary frequency or hematuria Musc: Denies: back pain, joint swelling or joint redness Skin/Breast: Denies: rash or new lesions Neuro: Denies: headache(s), numbness in extremities, weakness in extremities, dizziness, confusion or seizure-like activity Endo: Denies: polyuria or polydipsia Luke/Lymph: Denies: easy bleeding or tender lymph nodes All/Imm: Denies: urticaria or tongue swelling Medications/Allergies Home Medications Medication Instructions Recorded Confirmed Last Taken Type albuterol sulfate 90 mcg/actuation 2 puff inhalation Q6H PRN 06/29/20 08/20/22 08/20/22 History aerosol inhaler Shortness Of Breath aspirin 81 mg chewable tablet 81 mg PO DAILY 06/29/20 08/20/22 08/20/22 History atorvastatin 20 mg tablet 20 mg PO BEDTIME 06/29/20 08/20/22 08/20/22 History cilostazol 100 mg tablet 100 mg PO BID 06/29/20 08/20/22 08/20/22 History fluticasone propionate 50 1 spray intranasal DAILY 06/29/20 08/20/22 08/20/22 History mcg/actuation nasal spray,suspension insulin lispro 100 unit/mL See Rx Instructions .Route .COMPLEX 06/29/20 08/20/22 08/20/22 History subcutaneous pen (Humalog KwikPen (U-100) Insulin) latanoprost 0.005 % eye drops 1 drp ophthalmic (eye) BEDTIME 06/29/20 08/20/22 08/20/22 History fmiqwv-uqtlkela-lymjtrm 2 cap PO TID 06/29/20 08/20/22 08/20/22 History 24,000-76,000-120,000 unit capsule,delayed rel (Creon) mupirocin 2 % topical ointment 1 applic topical DAILY 06/29/20 08/20/22 Unknown History pantoprazole 40 mg tablet,delayed 40 mg PO DAILY 06/29/20 08/20/22 08/20/22 History release torsemide 20 mg tablet 20 mg PO BID 06/29/20 08/20/22 08/20/22 History umeclidinium 62.5 mcg-vilanterol 2 ea inhalation DAILY 06/29/20 08/20/22 08/20/22 History 25 mcg/actuation powdr for inhalation (Anoro Ellipta) dorzolamide 2 % eye drops 1 drp ophthalmic (eye) BID 07/27/20 08/20/22 08/20/22 History ipratropium 0.5 mg-albuterol 3 mg 3 ml inhalation QID PRN shortness 07/27/20 08/20/22 Unknown History (2.5 mg base)/3 mL nebulization of breath or wheezing soln ondansetron HCl 4 mg tablet 4 mg PO .prn PRN nausea and 07/27/20 08/20/22 08/20/22 History vomiting clindamycin HCl 300 mg capsule 300 mg PO TID 11/16/20 08/20/22 08/20/22 History gabapentin 100 mg capsule 100 mg PO TID 11/16/20 08/20/22 08/20/22 History clonidine HCl 0.1 mg tablet 0.2 mg PO BID 11/15/21 08/20/22 08/20/22 History biotin 5,000 mcg sublingual tablet 5,000 mcg sublingual BID 08/20/22 08/20/22 08/20/22 History cholecalciferol (vitamin D3) 25 25 mcg PO DAILY 08/20/22 08/20/22 08/20/22 History mcg (1,000 unit) capsule (Vitamin D3) ferrous sulfate 325 mg (65 mg 325 mg PO TID 08/20/22 08/20/22 08/20/22 History iron) tablet (iron) insulin glargine U-300 conc 300 135 unit SUBCUT DAILY 08/20/22 08/20/22 08/20/22 History unit/mL (1.5 mL) subcutaneous pen (Toujeo SoloStar U-300 Insulin) yfnamwzw-vfv-lgmcl ac 400 1 tab PO DAILY 08/20/22 08/20/22 08/20/22 History mcg-calcium carb 500 mg-vit K1 20 mcg tablet (Women's 50 Plus Multivitamin) Allergies Allergy/AdvReac Type Severity Reaction Status Date / Time doxycycline Allergy Unknown Verified 08/20/22 17:15 Sulfa (Sulfonamide Allergy ALGY-Rash Verified 08/20/22 17:15 Antibiotics) PFSH Acute PFSH: Medical History (Updated 08/20/22 @ 19:19 by Milan Tyler MD) Acute hypokalemia MATTIE (acute kidney injury) Anemia COPD (chronic obstructive pulmonary disease) Decubitus ulcer Diabetes Heart failure Myelodysplasia (myelodysplastic syndrome) PAD (peripheral artery disease) Pneumonia Pneumonia due to COVID-19 virus Sleep apnea Surgical History Hx of appendectomy Hx of cataract extraction Hx of section Hx of cholecystectomy Hx of hysterectomy Family History Mother CAD (coronary artery disease) Diabetes Daughter Diabetes Lung disease Suicide Son Diabetes Lung disease Denies family history of Clotting disorder Dementia Chronic kidney disease (CKD) Anesthesia complication Bleeding disorder Cancer Stroke Social History Smoking and tobacco status: former smoker (smoked x 8 years) Alcohol intake: never Lives independently: Yes Household members: other Details: Son Vitals/I&O/Wt Last Vital Signs Temp 98.2 F 08/20/22 16:19 Pulse 94 08/20/22 18:40 Resp 17 08/20/22 18:40 BP 82/57 08/20/22 18:40 Pulse Ox 98 08/20/22 18:40 O2 Del Method 08/20/22 16:19 O2 Flow Rate 5 08/20/22 16:19 Weight last 48 hrs Weight 111.584 kg Physical Exam Const: COMMON NORMALS: patient oriented x3 and alert GENERAL APPEARANCE: cooperative NUTRITIONAL APPEARANCE: obese morbidly obese ORIENTATION/CONSCIOUSNESS: Yes awake HENMT: COMMON NORMALS: oropharynx normal Neck/C-Spine: COMMON NORMALS: no JVD Resp: COMMON NORMALS: normal respiratory effort AUSCULTATION: breath sounds absent bilateral (Lower) Cardio: COMMON NORMALS: no JVD, regular rhythm, S1 normal heart sound present, S2 normal heart sound present and No murmurs present (Cardio) RHYTHM: regular rhythm HEART SOUNDS: S1 normal heart sound present and S2 normal heart sound present GI: COMMON NORMALS: Normal to inspection, nondistended, normoactive bowel sounds present, Soft to palpation and non-tender PALPATION: Yes Soft to palpation OTHER: Large pannus. Extremity: COMMON NORMALS: no joint enlargement and no pedal edema GENERAL: Yes edema Neuro: COMMON NORMALS: patient oriented x3 and moves all extremities S ENSORIUM/ORIENTATION: Yes alert Skin: COMMON NORMALS: no rashes or lesions noted OTHER: Unable to examine as she is dressed in street clothes. Data 08/20/22 16:41 08/20/22 16:41 Micro: Microbiology 08/20/22 17:52 Blood Culture - Preliminary Blood SPECIMEN COLLECTED 08/20/22 17:17 Blood Culture - Preliminary Blood SPECIMEN COLLECTED A&P Assessment and plan (1) Acute diastolic CHF (congestive heart failure): Discussed with ER physician, will admit to CSU, ER documentation reviewed. Vitals, blood count, chemistry panel reviewed. Acute diastolic CHF. Additionally underlying possibly severe aortic stenosis. Received 60 mg IV Lasix, continue with cautious diuresis with 40 mg IV twice daily Lasix. Monitor I&O, weights requested. Monitor chemistry, requested for the morning creatinine electrolytes including magnesium, requested. Requires close monitoring of vitals due to underlying aortic stenosis, risk of severe hypotension. Troponin reviewed. Complete troponin EKG series to exclude ischemia. She is chest pain-free. (2) HTN (hypertension): Hypertensive in ER, possibly trigger for decompensation of CHF, although she states does check her blood pressures at home. Blood pressure in ER 173/82. Monitor blood pressures with diuresis. Continue clonidine. Cardiac diet. (3) Pleural effusion, bilateral: Bilateral moderate pleural effusion secondary to CHF. No signs of pneumonia or acute infection. Diuresis as above. Consider reassessment for improvement. Plan Initial acute on chronic respiratory failure with requirement for 6 L oxygen by nasal cannula in ER. Normally on 3 L for CHF, COPD and other comorbidities. As above. GREY: On CPAP at home. Requested. States has not missed CPAP at home. Morbid obesity: Follow-up with primary provider for options regarding weight loss. DM2: Consistent carbohydrate diet, continue Lantus, added insulin sliding scale. Monitor blood glucose. COPD: Does not appear currently in exacerbation, or monitor symptoms. Hidradenitis suppurativa: States that she follows with a embedded software test engineer. Reports that she is healing some wounds in her groin. Continue clindamycin. Follow-up treating provider. MDS Anemia History of decubitus ulcer Other medical problems Attestations Medical Necessity Statement*: Of over 2 midnights anticipated for assessment management of acute diastolic CHF, with bilateral pleural effusions which are new, in a lady with underlying aortic stenosis, GREY, morbid obesity, additional comorbidities as above. Diagnoses Acute diastolic CHF (congestive heart failure) I50.31 HTN (hypertension) I10 Pleural effusion, bilateral J90
--- NOTE | 2022-08-20 19:24 | PC.NURSE ---
Report from Dav. Pt alert and oriented. NAD. No needs at this time.
--- NOTE | 2022-08-20 20:18 | ECG_ITS ---
[facility] Test Date: 2022-08-20 Pat Name: Beth Winkler Department: Room: 111 Gender: Female District Court Judge: : 1940 Requested By: Harris Jordan Order Number: [id number] Leila MD: Livan Edwards M.D. Measurements Intervals [place] Rate: 104 P: 50 [place]: 146 QRS: 14 QRSD: 92 T: 91 QT: 334 QTc: 440 Interpretive Statements SINUS TACHYCARDIA LOW QRS VOLTAGE IN EXTREMITY LEADS [QRS DEFLECTION < 0.5 mV IN LIMB LEADS] POSSIBLE ANTERIOR MYOCARDIAL INFARCTION , OF INDETERMINATE AGE [30 ms Q WAVE IN V3/V4, OR R < 0.2 mV IN V4] Compared to ECG 08/20/2022 17:14:42 Low QRS voltage now present Sinus rhythm no longer present Atrial abnormality no longer present Myocardial infarct finding still present Electronically Signed On 08-20-2022 22:47:12 CORPORATE TRUST OFFICER by Livan Edwards M.D. [id number]
[2022-08-20 20:35] LABS: Glucose Point of Care 266 mg/dL (70-110)
[2022-08-20] MEDS: ipratropium-albuterol 3 mL Neb INHALATION (20:42)
[2022-08-20 20:51] LABS: Troponin 5 2HR 30.37 ng/L (0-10)
[2022-08-20 20:52] LABS: Lactic Acid level (Lactate) 2.6 mmol/L (0.5-2.2)
[2022-08-20 20:55] LABS: Troponin 5 2HR Delta 4.37 ABS# (0-10)
[2022-08-20] MEDS: insulin lispro 100 unit/1 mL SUBCUT (21:21)
[2022-08-20] MEDS: heparin 5,000 unit/mL INJ 1 mL 5000 UNIT SUBCUT (21:22)
[2022-08-20] MEDS: atorvastatin 40 mg Tablet 20 MG PO (21:23)
[2022-08-20] MEDS: gabapentin 100 mg Capsule PO (21:24)
[2022-08-20] MEDS: clindamycin 150 mg Capsule 300 MG PO (21:24)
[2022-08-20] MEDS: ferrous sulfate EC 325 mg Tablet PO (21:24)
[2022-08-20] MEDS: latanoprost 0.005% Op Soln 2.5 mL Btl 1 DROP EYE-BOTH (22:34)
--- NOTE | 2022-08-20 23:09 | ECG_ITS ---
[facility] Test Date: 2022-08-20 Pat Name: Beth Winkler Department: Room: 111 Gender: Female Urogynecology Physician: : 1940 Requested By: Harris Jordan Order Number: [id number] Leila MD: Letty Chisholm M.D. Measurements Intervals [place] Rate: 99 P: 47 [place]: 142 QRS: 9 QRSD: 93 T: 94 QT: 335 QTc: 431 Interpretive Statements SINUS RHYTHM WITH OCCASIONAL SUPRAVENTRICULAR PREMATURE COMPLEXES LOW QRS VOLTAGE IN EXTREMITY LEADS [QRS DEFLECTION < 0.5 mV IN LIMB LEADS] POSSIBLE ANTERIOR MYOCARDIAL INFARCTION , OF INDETERMINATE AGE [30 ms Q WAVE IN V3/V4, OR R < 0.2 mV IN V4] Compared to ECG 08/20/2022 20:18:06 Sinus tachycardia no longer present Myocardial infarct finding still present Electronically Signed On 08-20-2022 23:22:06 PERFORMANCE IMPROVEMENT SPECIALIST by Letty Chisholm M.D. [id number]
[2022-08-20 23:35] LABS: Troponin 5 6HR 28.25 ng/L (0-10); Troponin 5 6HR Delta 2.25 ng/L (0-12)
[2022-08-21] VITALS (27 sets, daily range): BP systolic 127–183; BP diastolic 64–103; PULSE 81–111; RESP 16–35; TEMP 36.6–37.8; O2SAT 84–97
[2022-08-21] MEDS: ipratropium-albuterol 3 mL Neb INHALATION ×4 (02:08→20:09)
[2022-08-21 03:43] LABS: Basophils % 0.5 %; Eosinophils # 0.2 10^3/uL (0.0-0.8); Eosinophils % 1.8 %; Hematocrit 33.6 % (37.0-47.0); Hemoglobin 10.5 g/dL (11.5-15.3); Lymphocytes # 0.7 10^3/uL (0.8-4.8); Lymphocytes % 8.8 %; Mean Corpuscular HGB Conc 31.3 g/dL (30.0-36.0); Mean Corpuscular Hemoglobin 30.7 pg (28.0-34.0); Mean Corpuscular Volume 98.2 fl (81-99); Mean Platelet Volume 9.4 fL (7.4-10.4); Monocytes # 0.7 10^3/uL (0.2-0.9); Monocytes % 8.4 %; Neutrophils # 6.54 10^3/uL (1.8-7.7); Neutrophils % 79.8 %; Nucleated Red Blood Cells % 0.2 %; Platelet Count 208 10^3/cmm (130-400); Red Blood Count 3.42 10^6/uL (4.1-5.3); Red Cell Distribution Width 15.6 % (12.1-15.1); White Blood Count 8.2 10^3/uL (4.0-10.0)
[2022-08-21 04:11] LABS: Anion Gap 14.1 (5-19); Blood Urea Nitrogen 14 mg/dL (8-23); Calcium 11.5 mg/dL (8.5-10.5); Carbon Dioxide 33 mmol/L (22-29); Chloride 99 mmol/L (98-107); Glucose 221 mg/dL (65-115); Magnesium 1.6 mg/dL (1.7-2.3); Osmolality Calculated 301 mOsm/kg (285-295); Potassium 4.1 mmol/L (3.5-5.1); Sodium 142 mmol/L (136-145); Thyroid Stimulating Hormone 1.51 uIU/mL (0.27-4.20)
[2022-08-21] MEDS: FUROsemide 10 mg/mL SDV 4mL 40 MG IVP ×2 (04:21→15:44)
[2022-08-21 06:20] LABS: Glucose Point of Care 271 mg/dL (70-110)
[2022-08-21] MEDS: insulin lispro 100 unit/1 mL SUBCUT ×4 (07:50→22:00)
[2022-08-21] MEDS: heparin 5,000 unit/mL INJ 1 mL 5000 UNIT SUBCUT ×2 (07:50→20:31)
--- NOTE | 2022-08-21 08:51 | PC.CHAP ---
Pastoral Care Encounter/Spiritual Assessment Type of Contact [] Declined java web engineer visit [] Patient/Family/Request visit [] Outpatient visit [] Follow-up visit [] Physician referral [] Code/Alert [x] Routine visit [] Staff referral [] Actively dying [] Patient sleeping [] Family support [] [] Out of room [] Palliative care [] [] Receiving care in room [] Pre-surgical visit [] Trauma [] Long length of stay [] ICU visit [] Other: Relational/Emotional Strength [x] Patient feels connected with others/family/visitors/staff [] Distress [] Loneliness/isolation [] Abandonment Spirituality of Patient [x] Person of Lesa [] Attends Gnosticist of their Lesa [] Believes in Prayer [] Reads Bible or Yazdanism materials [] There are Spiritual issues to be addressed Food Mixer Repairer Interventions [] Prayer [x] Active listening [x] Non-anxious presence [x] Spiritual/emotional support [] Crisis/trauma care [] Spiritual counseling [] Bereavement support [] Provided bereavement packet [] Provided Bible/devotional materials [] Provided toy/stuffed animal, coloring book to patient or family member [] Provided Communion [] Anointing/[place] [] Salvation [x] Completed spiritual assessment [] Other: Impact on Illness or Injury [] Angry [] Fearful [] Anxious [] Often cries [] Exhaustion [] Unable to work [] Unable to attend christianity [] Unable to walk/stand [] Unable to read [] Unable to drive [] Unable to eat/drink [] Unable to sleep [] Unable to be with family [] Patient intubated [] Other: Summary Pt lives with son and has a daughter that lives a couple houses away so she has a very good support system. She has a child living in [place] and another in [place]. She has five grandchildren and 6 great grand children. However, due to them living away, she does not get to see them often. Pt is still undergoing tests to determine what is wrong. As we were visiting a doctor came in to see Pt. Time spent with patient 10m
[2022-08-21] MEDS: aspirin 81 mg Chew Tablet PO (09:21)
[2022-08-21] MEDS: pantoprazole DR 40 mg Tablet PO (09:22)
[2022-08-21] MEDS: cloNIDine 0.1 mg Tablet 0.2 MG PO ×2 (09:22→17:50)
[2022-08-21] MEDS: ferrous sulfate EC 325 mg Tablet PO ×3 (09:22→20:31)
[2022-08-21] MEDS: gabapentin 100 mg Capsule PO ×3 (09:22→20:31)
[2022-08-21] MEDS: cholecalciferol (vitamin D3) 1,000 unit Tablet 1000 UNIT PO (09:22)
[2022-08-21] MEDS: clindamycin 150 mg Capsule 300 MG PO ×3 (09:23→20:31)
[2022-08-21] MEDS: cilostazol 100 mg Tablet PO ×2 (09:24→17:50)
[2022-08-21] MEDS: fluticasone nasal spray 16gm Btl 1 SPRAY INTRANASAL (09:27)
[2022-08-21 11:36] LABS: Glucose Point of Care 309 mg/dL (70-110)
[2022-08-21] MEDS: insulin glargine 100 units/1 mL 108 UNIT SUBCUT (12:24)
[2022-08-21] MEDS: acetaminophen 325 mg Tablet 650 MG PO (15:58)
[2022-08-21 17:17] LABS: Glucose Point of Care 212 mg/dL (70-110)
--- NOTE | 2022-08-21 18:12 | P.PN_ITS ---
Subjective Subjective: She is not feeling any significantly better today. Still dyspnea, orthopnea, edema. Denies chest pain. Not coughing. Vitals/I&O/Wt Last Vital Signs Temp 100.0 F H 08/21/22 15:51 Pulse 108 H 08/21/22 15:51 Resp 29 H 08/21/22 15:51 BP 156/87 08/21/22 17:50 Pulse Ox 93 08/21/22 15:51 O2 Del Method 08/21/22 15:51 O2 Flow Rate 4 08/21/22 13:57 08/21/22 08/21/22 08/21/22 06:59 14:59 22:59 Intake Total 480 / 480 240 / 720 Output Total 1100 / 1100 1600 / 1600 Balance -1100 / -870 -1120 / -1120 240 / -880 Weight last 48 hrs Weight 110.563 kg Weight 111.584 kg Physical Exam Const: COMMON NORMALS: patient oriented x3 and alert GENERAL APPEARANCE: cooperative NUTRITIONAL APPEARANCE: obese morbidly obese ORIENTATION/CONSCIOUSNESS: Yes awake HENMT: COMMON NORMALS: oropharynx normal Neck/C-Spine: COMMON NORMALS: no JVD Resp: COMMON NORMALS: normal respiratory effort AUSCULTATION: breath sounds absent bilateral (Lower) Cardio: COMMON NORMALS: no JVD, regular rhythm, S1 normal heart sound present, S2 normal heart sound present and No murmurs present (Cardio) RHYTHM: regular rhythm HEART SOUNDS: S1 normal heart sound present and S2 normal heart sound present GI: COMMON NORMALS: Normal to inspection, nondistended, normoactive bowel sounds present, Soft to palpation and non-tender PALPATION: Yes Soft to palpation OTHER: Large pannus. Extremity: COMMON NORMALS: no joint enlargement and no pedal edema GENERAL: Yes edema Neuro: COMMON NORMALS: patient oriented x3 and moves all extremities SENSORIUM/ORIENTATION: Yes alert Skin: COMMON NORMALS: no rashes or lesions noted GENERAL SKIN EXAM: no rashes or lesions noted OTHER: Unable to examine as she is dressed in street clothes. Urinary Catheter Management: Bocanegra Latex Free: Cath Placed During This Visit: yes Reason for Continuing Indwelling Catheter: Other Urinary Catheter Date of Insertion: 08/20/22 Urinary Catheter Time of Insertion: 20:12 Data 08/21/22 03:19 08/21/22 03:19 Micro: Microbiology 08/20/22 17:52 Blood Culture - Preliminary Blood NEGATIVE TO DATE 08/20/22 17:17 Blood Culture - Preliminary Blood NEGATIVE TO DATE A&P Assessment and plan (1) Acute diastolic CHF (congestive heart failure): Reviewed intake and output, in negative balance. Potassium is okay. Magnesium looks like, 1.6. Requesting replacement, follow-up magnesium requested. Continue IV diuresis. Reviewed chemistry panel, renal function. Acute diastolic CHF. Additionally underlying possibly severe aortic stenosis. Monitor I&O, weights requested. Monitor chemistry, requested for the morning creatinine electrolytes including magnesium, requested. Requires close monitoring of vitals due to underlying aortic stenosis, risk of severe hypotension. Troponin series reviewed. She is chest pain-free. Interpreting the trend, does not appear to acute cardiac ischemia. (2) Fever: Low-grade fever 100 Fahrenheit, with dyspnea, requested COVID-19 PCR panel. (3) HTN (hypertension): Hypertensive in ER, possibly trigger for decompensation of CHF, although she states does check her blood pressures at home. Blood pressure in ER 173/82. Monitor blood pressures with diuresis. Continue clonidine. Cardiac diet. (4) Pleural effusion, bilateral: Bilateral moderate pleural effusion secondary to CHF. No signs of pneumonia or acute infection. Diuresis as above. Consider reassessment for improvement. Reviewed TSH, normal. Plan Initial acute on chronic respiratory failure with requirement for 6 L oxygen by nasal cannula in ER. Improving. Currently on 4 L. Normally on 3 L for CHF, COPD and other comorbidities. As above. GREY: On CPAP at home. Requested. States has not missed CPAP at home. Morbid obesity: Follow-up with primary provider for options regarding weight loss. DM2: Consistent carbohydrate diet, continue Lantus, added insulin sliding scale. Monitor blood glucose. COPD: Does not appear currently in exacerbation, or monitor symptoms. Hidradenitis suppurativa: States that she follows with a offender employment specialist. Reports that she is healing some wounds in her groin. Continue clindamycin. Follow-up treating provider. MDS Anemia History of decubitus ulcer Other medical problems Attestations Medical Necessity Statement*: Continue admission for assessment management of decompensated CHF, further assessment of low-grade fever. Coding Level of Care Code Acute Code for [facility] Diagnoses Acute diastolic CHF (congestive heart failure) I50.31 Fever R50.9 HTN (hypertension) I10 Pleural effusion, bilateral J90
[2022-08-21] MEDS: magnesium sulfate premix 2 GM/50 ML PIGGYBACK IV (20:30)
[2022-08-21] MEDS: atorvastatin 40 mg Tablet 20 MG PO (20:31)
[2022-08-21] MEDS: latanoprost 0.005% Op Soln 2.5 mL Btl 1 DROP EYE-BOTH (20:32)
[2022-08-21 20:55] LABS: Adenovirus Not Detected (NOT DETECT); Chlamydia Pneumoniae Not Detected (NOT DETECT); Coronavirus 229E,HKU1,NL63,OC4 Not Detected (NOT DETECT); Human Metapneumovirus Not Detected (NOT DETECT); Human Rhinovirus/Enterovirus Not Detected (NOT DETECT); Influenza A Not Detected (NOT DETECT); Influenza A H1 Not Detected (NOT DETECT); Influenza A H1-2009 Not Detected (NOT DETECT); Influenza A H3 Not Detected (NOT DETECT); Influenza B Not Detected (NOT DETECT); Mycoplasma Pneumoniae Not Detected (NOT DETECT); Parainfluenza Virus Type 1 Not Detected (NOT DETECT); Parainfluenza Virus Type 2 Not Detected (NOT DETECT); Parainfluenza Virus Type 3 Not Detected (NOT DETECT); Parainfluenza Virus Type 4 Not Detected (NOT DETECT); Respiratory Syncytial Virus A Not Detected (NOT DETECT); Respiratory Syncytial Virus B Not Detected (NOT DETECT); SARS-COV-2 Not Detected (NOT DETECT)
[2022-08-21 21:50] LABS: Glucose Point of Care 256 mg/dL (70-110)
[2022-08-22] VITALS (20 sets, daily range): BP systolic 112–184; BP diastolic 44–86; PULSE 56–103; RESP 16–25; TEMP 36.6–37.7; O2SAT 91–98
[2022-08-22 01:35] LABS: Basophils % 0.6 %; Eosinophils # 0.2 10^3/uL (0.0-0.8); Eosinophils % 2.8 %; Hematocrit 32.9 % (37.0-47.0); Hemoglobin 10.4 g/dL (11.5-15.3); Lymphocytes # 1.2 10^3/uL (0.8-4.8); Lymphocytes % 16.1 %; Mean Corpuscular HGB Conc 31.6 g/dL (30.0-36.0); Mean Corpuscular Volume 98.2 fl (81-99); Mean Platelet Volume 9.2 fL (7.4-10.4); Monocytes # 0.7 10^3/uL (0.2-0.9); Monocytes % 9.6 %; Neutrophils # 5.05 10^3/uL (1.8-7.7); Neutrophils % 70.2 %; Nucleated Red Blood Cells % 0.3 %; Platelet Count 215 10^3/cmm (130-400); Red Blood Count 3.35 10^6/uL (4.1-5.3); Red Cell Distribution Width 15.2 % (12.1-15.1); White Blood Count 7.2 10^3/uL (4.0-10.0)
[2022-08-22 01:57] LABS: Anion Gap 11.8 (5-19); Blood Urea Nitrogen 16 mg/dL (8-23); Calcium 11.7 mg/dL (8.5-10.5); Carbon Dioxide 34 mmol/L (22-29); Chloride 97 mmol/L (98-107); Glucose 152 mg/dL (65-115); Magnesium 1.9 mg/dL (1.7-2.3); Osmolality Calculated 292 mOsm/kg (285-295); Potassium 3.8 mmol/L (3.5-5.1); Sodium 139 mmol/L (136-145)
[2022-08-22] MEDS: FUROsemide 10 mg/mL SDV 4mL 40 MG IVP ×2 (03:08→15:40)
--- NOTE | 2022-08-22 06:00 | PC.NURSE ---
HR Patient's HR monitor showing HR ST in the 150s, pulse ox HR matching. Patient states she feels good with no pain or shortness of breath. Dr. Londono notified and order received for an EKG. Ekg obtained; no other orders received.
--- NOTE | 2022-08-22 06:07 | ECG_ITS ---
[facility] Test Date: 2022-08-22 Pat Name: Beth Winkler Department: Room: 111 Gender: Female Teleprinter Installer: : 1940 Requested By: Jhonatan Londono Order Number: [id number] Leila MD: Venu Mccord M.D. Measurements Intervals Kennedy Rate: 100 P: 47 WY: 150 QRS: -3 QRSD: 96 T: 79 QT: 347 QTc: 449 Interpretive Statements SINUS TACHYCARDIA LOW QRS VOLTAGE IN EXTREMITY LEADS [QRS DEFLECTION < 0.5 mV IN LIMB LEADS] PATTERN CONSISTENT WITH PULMONARY DISEASE Compared to ECG 08/20/2022 23:09:10 Sinus rhythm no longer present Myocardial infarct finding no longer present Electronically Signed On 08-22-2022 20:01:15 DIRECTOR OF INSTRUCTIONAL TECHNOLOGY by Venu Mccord M.D. [id number]
[2022-08-22 06:19] LABS: Glucose Point of Care 129 mg/dL (70-110)
[2022-08-22] MEDS: ipratropium-albuterol 3 mL Neb INHALATION ×3 (08:40→19:48)
[2022-08-22] MEDS: clindamycin 150 mg Capsule 300 MG PO ×3 (09:18→21:18)
[2022-08-22] MEDS: ferrous sulfate EC 325 mg Tablet PO ×3 (09:18→21:18)
[2022-08-22] MEDS: pantoprazole DR 40 mg Tablet PO (09:19)
[2022-08-22] MEDS: cholecalciferol (vitamin D3) 1,000 unit Tablet 1000 UNIT PO (09:19)
[2022-08-22] MEDS: aspirin 81 mg Chew Tablet PO (09:19)
[2022-08-22] MEDS: gabapentin 100 mg Capsule PO ×3 (09:19→21:18)
[2022-08-22] MEDS: cloNIDine 0.1 mg Tablet 0.2 MG PO ×2 (09:19→18:13)
[2022-08-22] MEDS: cilostazol 100 mg Tablet PO ×2 (09:19→18:13)
[2022-08-22] MEDS: heparin 5,000 unit/mL INJ 1 mL 5000 UNIT SUBCUT ×2 (09:19→21:19)
[2022-08-22] MEDS: fluticasone nasal spray 16gm Btl 1 SPRAY INTRANASAL (09:20)
[2022-08-22] MEDS: insulin glargine 100 units/1 mL 108 UNIT SUBCUT (09:29)
[2022-08-22 11:32] LABS: Glucose Point of Care 311 mg/dL (70-110)
[2022-08-22] MEDS: dorzolamide 2% Op Soln 10 mL Btl 1 DROP EYE-BOTH ×2 (13:40→18:13)
[2022-08-22] MEDS: insulin lispro 100 unit/1 mL SUBCUT ×3 (13:40→22:22)
[2022-08-22] MEDS: nystatin cream 30 gm 1 APPLIC TOPICAL (15:40)
[2022-08-22 16:29] LABS: Glucose Urine UA Norm (Normal); Protein Urine Neg (Negative); Urine Appearance Hazy (CLEAR); Urine Color Yellow (Yellow); pH Urine 7 (5-7)
[2022-08-22 16:30] LABS: Add Urine Microscopic? YES; Amorphous Sediment Urine 2+ /hpf; Bacteria Urine 2+ /hpf; Bilirubin Urine Neg (Negative); Blood Urine 2+ (Negative); Ketones Urine Negative (Negative); Leukocyte Esterase Urine 2+ (Negative); Nitrate Urine Negative (Negative); Squamous Epithelial Cell Urine 0-4 /hpf (0-5); Urobilinogen Urine Norm (Negative); WBC Urine 15-25 /hpf (0-5)
[2022-08-22 16:31] LABS: Add Urine Culture? Yes
[2022-08-22 16:37] LABS: Glucose Point of Care 274 mg/dL (70-110)
[2022-08-22 20:46] LABS: Glucose Point of Care 153 mg/dL (70-110)
[2022-08-22] MEDS: atorvastatin 40 mg Tablet 20 MG PO (21:19)
--- NOTE | 2022-08-22 21:38 | PM.PN ---
Subjective Subjective: She is feeling slightly better today in terms of breathing. She has developed a rash under her breasts. Vitals/I&O/Wt Last Vital Signs Temp 99.1 F 08/22/22 20:00 Pulse 103 H 08/22/22 20:00 Resp 20 H 08/22/22 20:00 BP 142/62 08/22/22 20:00 Pulse Ox 93 08/22/22 20:00 O2 Del Method 08/22/22 19:51 O2 Flow Rate 3 08/22/22 19:51 08/22/22 08/22/22 08/22/22 06:59 14:59 22:59 Intake Total 50 / 770 480 / 480 240 / 720 Output Total 1950 / 3550 800 / 800 Balance -1900 / -2780 -320 / -320 240 / -80 Weight last 48 hrs Weight 108.862 kg Weight 110.563 kg Physical Exam Const: COMMON NORMALS: patient oriented x3 and alert GENERAL APPEARANCE: cooperative NUTRITIONAL APPEARANCE: obese morbidly obese ORIENTATION/CONSCIOUSNESS: Yes awake HENMT: COMMON NORMALS: oropharynx normal Neck/C-Spine: COMMON NORMALS: no JVD Resp: COMMON NORMALS: normal respiratory effort AUSCULTATION: breath sounds absent bilateral (Lower) Cardio: COMMON NORMALS: no JVD, regular rhythm, S1 normal heart sound present, S2 normal heart sound present and No murmurs present (Cardio) RHYTHM: regular rhythm HEART SOUNDS: S1 normal heart sound present and S2 normal heart sound present GI: COMMON NORMALS: Normal to inspection, nondistended, normoactive bowel sounds present, Soft to palpation and non-tender PALPATION: Yes Soft to palpation OTHER: Large pannus. Extremity: COMMON NORMALS: no joint enlargement and no pedal edema GENERAL: Yes edema Neuro: COMMON NORMALS: patient oriented x3 and moves all extremities SENSORIUM/ORIENTATION: Yes alert Skin: OTHER: Rash under breasts Urinary Catheter Management: Bocanegra Latex Free: Cath Placed During This Visit: yes Reason for Continuing Indwelling Catheter: Other Urinary Catheter Date of Insertion: 08/20/22 Urinary Catheter Time of Insertion: 20:12 Data 08/22/22 01:12 08/22/22 01:12 Micro: Microbiology 08/20/22 17:52 Blood Culture - Preliminary Blood NEGATIVE TO DATE 08/20/22 17:17 Blood Culture - Preliminary Blood NEGATIVE TO DATE A&P Assessment and plan (1) Acute diastolic CHF (congestive heart failure): Diuresing well. Reviewed ARNOLD, and negative balance. Continue to monitor. Reviewed weights, decreasing. Continue IV diuretics. R potassium looks okay. Needs monitoring with IV diuresis. Requested. Magnesium 1.9. Requested follow-up as may likely decrease with loop diuretics. Continue IV diuresis. Reviewed chemistry panel, renal function. Acute diastolic CHF. Additionally underlying possibly severe aortic stenosis. Monitor I&O, weights requested. Monitor chemistry, requested for the morning creatinine electrolytes including magnesium, requested. Requires close monitoring of vitals due to underlying aortic stenosis, risk of severe hypotension. Troponin series reviewed. She is chest pain-free. Interpreting the trend, does not appear to acute cardiac ischemia. (2) Fever: Low-grade fever 100 Fahrenheit, with dyspnea, requested COVID-19 PCR panel. (3) HTN (hypertension): Hypertensive in ER, possibly trigger for decompensation of CHF, although she states does check her blood pressures at home. Blood pressure in ER 173/82. Monitor blood pressures with diuresis. Continue clonidine. Cardiac diet. (4) Pleural effusion, bilateral: Bilateral moderate pleural effusion secondary to CHF. No signs of pneumonia or acute infection. Diuresis as above. Consider reassessment for improvement. Reviewed TSH, normal. Plan Possible UTI: UA reviewed. Possible UTI with 15-25 WBC. 2+ bacteria. Ceftriaxone. Follow-up urine culture. Rash under breasts: Added nystatin cream. Initial acute on chronic respiratory failure with requirement for 6 L oxygen by nasal cannula in ER. Improving. Currently on 4 L. Normally on 3 L for CHF, COPD and other comorbidities. As above. GREY: On CPAP at home. Requested. States has not missed CPAP at home. Morbid obesity: Follow-up with primary provider for options regarding weight loss. DM2: Consistent carbohydrate diet, continue Lantus, added insulin sliding scale. Monitor blood glucose. COPD: Does not appear currently in exacerbation, or monitor symptoms. Hidradenitis suppurativa: States that she follows with a radar scientist. Reports that she is healing some wounds in her groin. Continue clindamycin. Follow-up treating provider. MDS Anemia History of decubitus ulcer Other medical problems Attestations Medical Necessity Statement*: Cannot be admission for assessment and management of decompensated CHF, monitoring of renal function, electrolytes with IV diuresis. Treatment of UTI. Diagnoses Acute diastolic CHF (congestive heart failure) I50.31 Fever R50.9 HTN (hypertension) I10 Pleural effusion, bilateral J90
[2022-08-22] MEDS: cefTRIAXone 1,000 MG in sodium chloride 0.9% (plus) 50 ML 100 MG IV (22:21)
[2022-08-22] MEDS: latanoprost 0.005% Op Soln 2.5 mL Btl 1 DROP EYE-BOTH (22:21)
[2022-08-23] VITALS (22 sets, daily range): BP systolic 135–183; BP diastolic 56–76; PULSE 81–107; RESP 15–24; TEMP 36.8–37; O2SAT 89–98
[2022-08-23] MEDS: ipratropium-albuterol 3 mL Neb INHALATION ×4 (02:10→19:23)
[2022-08-23 03:57] LABS: Basophils % 0.5 %; Eosinophils # 0.3 10^3/uL (0.0-0.8); Eosinophils % 3.5 %; Hematocrit 34.4 % (37.0-47.0); Hemoglobin 10.8 g/dL (11.5-15.3); Lymphocytes # 1.1 10^3/uL (0.8-4.8); Lymphocytes % 14.2 %; Mean Corpuscular HGB Conc 31.4 g/dL (30.0-36.0); Mean Corpuscular Hemoglobin 30.8 pg (28.0-34.0); Mean Platelet Volume 9.4 fL (7.4-10.4); Monocytes # 0.8 10^3/uL (0.2-0.9); Monocytes % 9.6 %; Neutrophils # 5.63 10^3/uL (1.8-7.7); Neutrophils % 71.3 %; Nucleated Red Blood Cells % 0 %; Platelet Count 206 10^3/cmm (130-400); Red Blood Count 3.51 10^6/uL (4.1-5.3); Red Cell Distribution Width 15.7 % (12.1-15.1); White Blood Count 7.9 10^3/uL (4.0-10.0)
[2022-08-23] MEDS: FUROsemide 10 mg/mL SDV 4mL 40 MG IVP ×2 (04:14→18:24)
[2022-08-23] MEDS: ondansetron 4 MG Tablet PO (04:18)
[2022-08-23 04:29] LABS: Anion Gap 11.6 (5-19); Blood Urea Nitrogen 22 mg/dL (8-23); Calcium 11.4 mg/dL (8.5-10.5); Carbon Dioxide 34 mmol/L (22-29); Chloride 100 mmol/L (98-107); Glucose 129 mg/dL (65-115); Magnesium 1.7 mg/dL (1.7-2.3); Osmolality Calculated 299 mOsm/kg (285-295); Potassium 3.6 mmol/L (3.5-5.1); Sodium 142 mmol/L (136-145)
[2022-08-23 06:37] LABS: Glucose Point of Care 226 mg/dL (70-110)
[2022-08-23] MEDS: heparin 5,000 unit/mL INJ 1 mL 5000 UNIT SUBCUT ×2 (09:33→20:27)
[2022-08-23] MEDS: cholecalciferol (vitamin D3) 1,000 unit Tablet 1000 UNIT PO (09:33)
[2022-08-23] MEDS: insulin lispro 100 unit/1 mL SUBCUT ×4 (09:33→21:20)
[2022-08-23] MEDS: cilostazol 100 mg Tablet PO ×2 (09:34→18:25)
[2022-08-23] MEDS: aspirin 81 mg Chew Tablet PO (09:34)
[2022-08-23] MEDS: cloNIDine 0.1 mg Tablet 0.2 MG PO ×2 (09:35→18:25)
[2022-08-23] MEDS: clindamycin 150 mg Capsule 300 MG PO ×3 (09:35→20:22)
[2022-08-23] MEDS: dorzolamide 2% Op Soln 10 mL Btl 1 DROP EYE-BOTH ×2 (09:36→18:32)
[2022-08-23] MEDS: insulin glargine 100 units/1 mL 108 UNIT SUBCUT (09:37)
[2022-08-23] MEDS: gabapentin 100 mg Capsule PO ×3 (09:37→20:22)
[2022-08-23] MEDS: mupirocin oint 22 gm 1 APPLIC TOPICAL (09:37)
[2022-08-23] MEDS: ferrous sulfate EC 325 mg Tablet PO ×3 (09:37→20:23)
[2022-08-23] MEDS: nystatin cream 30 gm 1 APPLIC TOPICAL (09:38)
[2022-08-23] MEDS: pantoprazole DR 40 mg Tablet PO (09:38)
[2022-08-23] MEDS: fluticasone nasal spray 16gm Btl 1 SPRAY INTRANASAL (10:30)
[2022-08-23 11:47] LABS: Glucose Point of Care 256 mg/dL (70-110)
--- NOTE | 2022-08-23 12:17 | P.PN_ITS ---
Subjective Subjective: She reports she is breathing slightly easier. Overall is improving. Reports has not had a bowel movement in days. Also complains of belching which is somewhat bothersome to her. To her nurse reports also heartburn. No chest pain. Shortness of breath improving. Vitals/I&O/Wt Last Vital Signs Temp 98.2 F 08/23/22 11:10 Pulse 107 H 08/23/22 11:10 Resp 20 H 08/23/22 11:10 BP 183/63 08/23/22 11:10 Pulse Ox 95 08/23/22 11:10 O2 Del Method 08/23/22 11:10 O2 Flow Rate 3 08/23/22 07:50 08/22/22 08/23/22 08/23/22 22:59 06:59 14:59 Intake Total 340 / 820 200 / 1020 360 / 360 Output Total 480 / 1280 Balance 340 / 20 -280 / -260 360 / 360 Weight last 48 hrs Weight 109.996 kg Weight 109.996 kg Weight 108.862 kg Physical Exam Const: COMMON NORMALS: patient oriented x3 and alert GENERAL APPEARANCE: cooperative NUTRITIONAL APPEARANCE: obese morbidly obese ORIENTATION/CONSCIOUSNESS: Yes awake HENMT: COMMON NORMALS: oropharynx normal Neck/C-Spine: COMMON NORMALS: no JVD Resp: COMMON NORMALS: normal respiratory effort AUSCULTATION: breath sounds absent bilateral (Lower) Cardio: COMMON NORMALS: no JVD, regular rhythm, S1 normal heart sound present, S2 normal heart sound present and No murmurs present (Cardio) RHYTHM: regular rhythm HEART SOUNDS: S1 normal heart sound present and S2 normal heart sound present GI: COMMON NORMALS: Normal to inspection, nondistended, normoactive bowel sounds present, Soft to palpation and non-tender PALPATION: Yes Soft to palpation OTHER: Large pannus. Extremity: COMMON NORMALS: no joint enlargement GENERAL: Yes edema Neuro: COMMON NORMALS: patient oriented x3 and moves all extremities SENSORIUM/ORIENTATION: Yes alert Skin: COMMON NORMALS: no rashes or lesions noted GENERAL SKIN EXAM: no rashes or lesions noted OTHER: Rash under breasts, more severe on the right. Strong yeasty odor. Interdry sheets Urinary Catheter Management: Bocanegra Latex Free: Cath Placed During This Visit: yes Reason for Continuing Indwelling Catheter: Accurate Measurement of Urinary Output in Critically Ill Patients Urinary Catheter Date of Insertion: 08/20/22 Urinary Catheter Time of Insertion: 20:12 Data 08/23/22 03:22 08/23/22 03:22 Micro: Microbiology 08/22/22 15:48 Urine Culture - Preliminary Urine,Clean Catch Gram Negative Rods A&P Assessment and plan (1) Acute diastolic CHF (congestive heart failure): Breathing is improving. Still requiring oxygen. Today is not in negative balance. We will add a dose of metolazone before evening dose of Lasix. Continue on Lasix 40 mg IV twice daily. Monitor electrolytes. Magnesium appreciated, decreased to 1.7. Replace. Follow-up magnesium requested. R potassium looks okay. Needs monitoring with IV diuresis. Requested. Magnesium 1.9. Requested follow-up as may likely decrease with loop diuretics. Acute diastolic CHF. Additionally underlying possibly severe aortic stenosis. Monitor I&O, weights requested. (2) Fever: Low-grade fever 100 Fahrenheit resolved, with dyspnea, reviewed COVID-19 PCR panel, negative. May have been secondary to, UA results appreciated, 15-25 WBC. Continue Rocephin. Follow-up urine culture. Bed intertrigo under breasts, nystatin cream added. CBC reviewed. No leukocytosis. (3) HTN (hypertension): Still hypertensive. Continue clonidine. Continue diuresis. Possibly trigger for decompensation of CHF, although she states does check her blood pressures at home. Add low-dose losartan. Needs monitoring of creatinine with ARB initiation also in the setting of IV diuretics. Requested follow-up. Cardiac diet. (4) Pleural effusion, bilateral: Bilateral moderate pleural effusion secondary to CHF. No signs of pneumonia or acute infection. Diuresis as above. Consider reassessment for improvement. Reviewed TSH, normal. Will need reassessment x-ray. Plan Possible UTI: UA with 15-25 WBC. 2+ bacteria. Ceftriaxone. Follow-up urine culture. Rash under breasts: Candidal intertrigo. Continue nystatin cream. Constipation: Add bowel regimen Initial acute on chronic respiratory failure with requirement for 6 L oxygen by nasal cannula in ER. Improving. Currently on 4 L. Normally on 3 L for CHF, COPD and other comorbidities. As above. GREY: On CPAP at home. Requested. States has not missed CPAP at home. Morbid obesity: Follow-up with primary provider for options regarding weight loss. DM2: Consistent carbohydrate diet, continue Lantus, added insulin sliding scale. Monitor blood glucose. COPD: Does not appear currently in exacerbation, or monitor symptoms. Hidradenitis suppurativa: States that she follows with a contact lens blocker. Reports that she is healing some wounds in her groin. Continue clindamycin. Follow-up treating provider. MDS Anemia History of decubitus ulcer Other medical problems Attestations Medical Necessity Statement*: Continue mission for management of decompensated CHF, poorly controlled hypertension, pleural effusion, UTI, additional comorbid ities as above, requiring close monitoring of renal function with IV diuresis, initiation of ARB, electrolytes including potassium magnesium, cardiac monitoring. Diagnoses Acute diastolic CHF (congestive heart failure) I50.31 Fever R50.9 HTN (hypertension) I10 Pleural effusion, bilateral J90
[2022-08-23] MEDS: losartan 50 mg Tablet 25 MG PO (13:09)
[2022-08-23] MEDS: polyethylene glycol 3350 Pkt 17 gm PO ×2 (13:11→18:27)
[2022-08-23] MEDS: magnesium sulfate premix 2 GM/50 ML PIGGYBACK IV (13:11)
--- NOTE | 2022-08-23 16:44 | PC.SOCIAL ---
IMM UPDATED IMM dated and intialed and copy given to patient and copy placed in chart.
[2022-08-23] MEDS: metOLazone 5 MG Tablet 2.5 MG PO (17:01)
[2022-08-23 17:11] LABS: Glucose Point of Care 197 mg/dL (70-110)
[2022-08-23] MEDS: atorvastatin 40 mg Tablet 20 MG PO (20:22)
[2022-08-23] MEDS: latanoprost 0.005% Op Soln 2.5 mL Btl 1 DROP EYE-BOTH (20:24)
[2022-08-23 21:16] LABS: Glucose Point of Care 166 mg/dL (70-110)
[2022-08-23] MEDS: cefTRIAXone 1,000 MG in sodium chloride 0.9% (plus) 50 ML 100 MG IV (21:20)
[2022-08-24] VITALS (35 sets, daily range): BP systolic 112–160; BP diastolic 43–77; PULSE 70–105; RESP 12–38; TEMP 36.2–37.1; O2SAT 85–100
[2022-08-24] MEDS: ipratropium-albuterol 3 mL Neb INHALATION ×4 (02:45→21:21)
[2022-08-24 03:48] LABS: Blood Urea Nitrogen 25 mg/dL (8-23); Carbon Dioxide 32 mmol/L (22-29); Chloride 91 mmol/L (98-107); Glucose 183 mg/dL (65-115); Osmolality Calculated 279 mOsm/kg (285-295); Sodium 130 mmol/L (136-145)
[2022-08-24 03:49] LABS: Anion Gap 10.9 (5-19); Potassium 3.9 mmol/L (3.5-5.1)
[2022-08-24] MEDS: FUROsemide 10 mg/mL SDV 4mL 40 MG IVP (04:07)
[2022-08-24 06:29] LABS: Glucose Point of Care 204 mg/dL (70-110)
[2022-08-24] MEDS: aspirin 81 mg Chew Tablet PO (08:24)
[2022-08-24] MEDS: cholecalciferol (vitamin D3) 1,000 unit Tablet 1000 UNIT PO (08:25)
[2022-08-24] MEDS: losartan 50 mg Tablet 25 MG PO (08:25)
[2022-08-24] MEDS: pantoprazole DR 40 mg Tablet PO ×2 (08:27→23:31)
[2022-08-24] MEDS: clindamycin 150 mg Capsule 300 MG PO ×3 (08:27→20:28)
[2022-08-24] MEDS: cilostazol 100 mg Tablet PO ×2 (08:27→17:23)
[2022-08-24] MEDS: cloNIDine 0.1 mg Tablet 0.2 MG PO ×2 (08:28→17:22)
[2022-08-24] MEDS: gabapentin 100 mg Capsule PO ×3 (08:29→20:29)
[2022-08-24] MEDS: ferrous sulfate EC 325 mg Tablet PO ×3 (08:29→20:29)
[2022-08-24] MEDS: heparin 5,000 unit/mL INJ 1 mL 5000 UNIT SUBCUT ×2 (08:30→20:28)
[2022-08-24] MEDS: insulin lispro 100 unit/1 mL SUBCUT ×4 (08:30→21:23)
[2022-08-24] MEDS: fluticasone nasal spray 16gm Btl 1 SPRAY INTRANASAL (08:31)
[2022-08-24] MEDS: polyethylene glycol 3350 Pkt 17 gm PO ×2 (08:31→17:22)
[2022-08-24] MEDS: insulin glargine 100 units/1 mL 108 UNIT SUBCUT (08:31)
[2022-08-24] MEDS: dorzolamide 2% Op Soln 10 mL Btl 1 DROP EYE-BOTH ×2 (08:32→20:30)
[2022-08-24] MEDS: nystatin cream 30 gm 1 APPLIC TOPICAL ×2 (08:38→20:32)
[2022-08-24] MEDS: albumin 25 G/100 ML BAG 60 G IV (10:28)
[2022-08-24 12:07] LABS: Glucose Point of Care 264 mg/dL (70-110)
--- NOTE | 2022-08-24 15:39 | USR_ITS ---
PROCEDURE INFORMATION: Exam: US Soft Tissue Head and Neck, Thyroid Exam date and time: 08/24/2022 7:50 PM Age: 82 years old Clinical indication: Other: Globus sensation TECHNIQUE: Imaging protocol: Real-time ultrasound scan of the neck with image documentation. Exam focused on the thyroid. COMPARISON: CT head wo con* [id number] 08/06/2017 7:39 PM FINDINGS: Right thyroid lobe: Heterogeneous echogenicity. There is a hypoechoic solid nodule with well-defined margins, wider than taller and without calcification in the right mid thyroid lobe measuring 1.0 x 0.6 x 0.9 cm, consistent with TI-RADS 4 imaging characteristics. There is a mixed solid and cystic and mildly hyperechoic nodule with well-defined margins, wider than taller and without calcification in the inferior right thyroid lobe measuring 2.2 x 2.0 x 2.6 cm, consistent with TI-RADS 2 imaging characteristics. Left thyroid lobe: Heterogeneous echogenicity. In the mid left thyroid lobe there is a small calcification measuring 0.9 x 0.6 x 0.7 cm. Isthmus: No nodules. US/US thyroid [id number] IMPRESSION: Hypoechoic solid nodule with TI-RADS 4 imaging characteristics in the right mid thyroid lobe, for which follow-up is recommended.
[2022-08-24 17:05] LABS: Glucose Point of Care 189 mg/dL (70-110)
[2022-08-24] MEDS: bisacodyl 10 mg Supp PR (18:10)
[2022-08-24] MEDS: latanoprost 0.005% Op Soln 2.5 mL Btl 1 DROP EYE-BOTH (20:29)
[2022-08-24] MEDS: atorvastatin 40 mg Tablet 20 MG PO (20:29)
[2022-08-24 21:15] LABS: Glucose Point of Care 200 mg/dL (70-110)
[2022-08-24] MEDS: cefTRIAXone 1,000 MG in sodium chloride 0.9% (plus) 50 ML 100 MG IV (21:15)
--- NOTE | 2022-08-24 22:25 | P.PN_ITS ---
Subjective Subjective: She is having globus sensation in her throat. Some unpleasant belching. Reflux that tastes bile-like. Discussed with her regarding intake and output so far, however, also regarding MATTIE. States rash is not worse. Still bothered by constipation. Vitals/I&O/Wt Last Vital Signs Temp 98.2 F 08/24/22 20:00 Pulse 88 08/24/22 21:23 Resp 21 H 08/24/22 21:21 BP 160/53 08/24/22 20:00 Pulse Ox 97 08/24/22 21:21 O2 Del Method 08/24/22 21:21 O2 Flow Rate 3.5 08/24/22 21:23 08/24/22 08/24/22 08/24/22 06:59 14:59 22:59 Intake Total 100 / 1330 700 / 700 290 / 990 Output Total 300 / 2000 1000 / 1000 Balance -200 / -670 700 / 700 -710 / -10 Weight last 48 hrs Weight 108.091 kg Weight 109.996 kg Weight 109.996 kg Physical Exam Const: COMMON NORMALS: patient oriented x3 and alert GENERAL APPEARANCE: cooperative NUTRITIONAL APPEARANCE: obese morbidly obese ORIENTATION/CONSCIOUSNESS: Yes awake HENMT: COMMON NORMALS: oropharynx normal Neck/C-Spine: COMMON NORMALS: no JVD Resp: COMMON NORMALS: normal respiratory effort AUSCULTATION: breath sounds absent bilateral (Lower) Cardio: COMMON NORMALS: no JVD, regular rhythm, S1 normal heart sound present, S2 normal heart sound present and No murmurs present (Cardio) RHYTHM: regular rhythm HEART SOUNDS: S1 normal heart sound present and S2 normal heart sound present GI: COMMON NORMALS: Normal to inspection, nondistended, normoactive bowel sounds present, Soft to palpation and non-tender PALPATION: Yes Soft to palpation OTHER: Large pannus. Extremity: COMMON NORMALS: no joint enlargement and no pedal edema GENERAL: Yes edema Neuro: COMMON NORMALS: patient oriented x3 and moves all extremities SENSORIUM/ORIENTATION: Yes alert Skin: COMMON NORMALS: no rashes or lesions noted GENERAL SKIN EXAM: no rashes or lesions noted OTHER: Rash under breasts, more severe on the right. Strong yeasty odor. Interdry sheets Urinary Catheter Management: Bocanegra Latex Free: Cath Placed During This Visit: yes Reason for Continuing Indwelling Catheter: Accurate Measurement of Urinary Output in Critically Ill Patients Urinary Catheter Date of Insertion: 08/20/22 Urinary Catheter Time of Insertion: 20:12 Data 08/23/22 03:22 08/24/22 03:05 Micro: Microbiology 08/22/22 15:48 Urine Culture - Final Urine,Clean Catch Escherichia coli A&P Assessment and plan (1) MATTIE (acute kidney injury): Noted MATTIE, creatinine up to 1.4. Held additional Lasix today. Given dose of albumin. Reassessment renal function requested. (2) Acute diastolic CHF (congestive heart failure): In negative balance. However, with MATTIE, creatinine was 1.4. Noted mild hyponatremia, 130. Held additional Lasix. Possibly secondary to diuretics as discussed with her, Lasix also received a dose of metolazone. Given a dose of albumin. Recheck chemistries requested. Potassium noted 3.9. Follow-up chemistry requested. Breathing is improving. Requiring 3.5 L of oxygen. R potassium looks okay. Needs monitoring with IV diuresis. Requested. Magnesium today is better 2. Acute diastolic CHF. Additionally underlying possibly severe aortic stenosis. Monitor I&O, weights requested. (3) Fever: Low-grade fever 100 Fahrenheit resolved, with dyspnea, reviewed COVID-19 PCR p kirsten, negative. May have been secondary to, UA results appreciated, 15-25 WBC. Continue Rocephin. Follow-up urine culture. Bed intertrigo under breasts, nystatin cream added. CBC reviewed. No leukocytosis. (4) HTN (hypertension): Still hypertensive. Continue clonidine. Continue diuresis. Possibly trigger for decompensation of CHF, although she states does check her blood pressures at home. Add low-dose losartan. Needs monitoring of creatinine with ARB initiation also in the setting of IV diuretics. Requested follow-up. Cardiac diet. (5) Pleural effusion, bilateral: Reassessment chest x-ray congested. Diuretic currently needing to be held due to MATTIE. Bilateral moderate pleural effusion secondary to CHF. No signs of pneumonia or acute infection. Diuresis as above. Consider reassessment for improvement. Reviewed TSH, normal. Will need reassessment x-ray. (6) Globus sensation: Globus sensation is bothering her swallowing. Requested thyroid ultrasound. Plan Possible UTI: UA with 15-25 WBC. 2+ bacteria. Ceftriaxone. Follow-up urine culture. Reflux: Continues being bothered by reflux. Continue PPI, increase dose to twice daily. Rash under breasts: Candidal intertrigo. Continue nystatin cream. Constipation: intensified bowel regimen. Initial acute on chronic respiratory failure with requirement for 6 L oxygen by nasal cannula in ER. Improving. Currently on 4 L. Normally on 3 L for CHF, COPD and other comorbidities. As above. GREY: On CPAP at home. Requested. States has not missed CPAP at home. Morbid obesity: Follow-up with primary provider for options regarding weight loss. DM2: Consistent carbohydrate diet, continue Lantus, added insulin sliding scale. Monitor blood glucose. COPD: Does not appear currently in exacerbation, or monitor symptoms. Hidradenitis suppurativa: States that she follows with a beauty culturist apprentice. Reports that she is healing some wounds in her groin. Continue clindamycin. Follow-up treating provider. MDS Anemia History of decubitus ulcer Other medical problems Attestations Medical Necessity Statement*: Continue care for assessment management of CHF exacerbation, complicated by MATTIE Other Coding Information Focused coding review requested Diagnoses MATTIE (acute kidney injury) N17.9 Acute diastolic CHF (congestive heart failure) I50.31 Fever R50.9 HTN (hypertension) I10 Pleural effusion, bilateral J90 Globus sensation R09.89
[2022-08-25] VITALS (48 sets, daily range): BP systolic 116–176; BP diastolic 35–70; PULSE 73–97; RESP 7–28; TEMP 36.4–37.5; O2SAT 87–99
[2022-08-25] MEDS: ipratropium-albuterol 3 mL Neb INHALATION ×4 (02:24→19:20)
--- NOTE | 2022-08-25 06:00 | XRR_ITS ---
PROCEDURE INFORMATION: Exam: XR Chest Exam date and time: 08/25/2022 5:50 AM Age: 82 years old Clinical indication: Other: Hypoxia TECHNIQUE: Imaging protocol: Radiologic exam of the chest. Views: 1 view. COMPARISON: CR (CHEST, ) 08/20/2022 5:02 PM FINDINGS: Lungs: There is mildly increased lung markings and mild haziness of the lower lungs, suggestive of pulmonary congestion. Minimal bibasilar atelectasis. Pneumonia should be excluded clinically. Pleural spaces: Unremarkable. No pleural effusion. No pneumothorax. Heart/Mediastinum: Stable cardiomediastinal silhouette. Bones/joints: Degenerative changes of the spine seen. XR/XR chest 1V portable [id number] IMPRESSION: Imaging findings suggestive of pulmonary congestion. Pneumonia should be excluded clinically.
[2022-08-25 06:38] LABS: Glucose Point of Care 205 mg/dL (70-110)
[2022-08-25 06:52] LABS: Blood Urea Nitrogen 37 mg/dL (8-23); Calcium 11.8 mg/dL (8.5-10.5); Carbon Dioxide 32 mmol/L (22-29); Chloride 93 mmol/L (98-107); Glucose 182 mg/dL (65-115); Osmolality Calculated 293 mOsm/kg (285-295); Sodium 135 mmol/L (136-145)
[2022-08-25 07:26] LABS: Anion Gap 14.2 (5-19); Potassium 4.2 mmol/L (3.5-5.1)
[2022-08-25] MEDS: insulin lispro 100 unit/1 mL SUBCUT ×4 (08:33→20:55)
[2022-08-25] MEDS: losartan 50 mg Tablet 25 MG PO (08:34)
[2022-08-25] MEDS: cilostazol 100 mg Tablet PO ×2 (08:35→18:26)
[2022-08-25] MEDS: clindamycin 150 mg Capsule 300 MG PO ×3 (08:36→20:43)
[2022-08-25] MEDS: ferrous sulfate EC 325 mg Tablet PO ×3 (08:36→20:43)
[2022-08-25] MEDS: gabapentin 100 mg Capsule PO ×3 (08:36→20:43)
[2022-08-25] MEDS: cloNIDine 0.1 mg Tablet 0.2 MG PO ×2 (08:36→18:27)
[2022-08-25] MEDS: aspirin 81 mg Chew Tablet PO (08:37)
[2022-08-25] MEDS: heparin 5,000 unit/mL INJ 1 mL 5000 UNIT SUBCUT ×2 (08:37→20:46)
[2022-08-25] MEDS: pantoprazole DR 40 mg Tablet PO ×2 (08:37→18:27)
[2022-08-25] MEDS: cholecalciferol (vitamin D3) 1,000 unit Tablet 1000 UNIT PO (08:37)
[2022-08-25] MEDS: insulin glargine 100 units/1 mL 108 UNIT SUBCUT (08:42)
[2022-08-25] MEDS: fluticasone nasal spray 16gm Btl 1 SPRAY INTRANASAL (08:42)
[2022-08-25] MEDS: dorzolamide 2% Op Soln 10 mL Btl 1 DROP EYE-BOTH ×2 (08:42→20:45)
[2022-08-25] MEDS: albumin 25 G/100 ML BAG 60 G IV (11:11)
[2022-08-25 12:02] LABS: Glucose Point of Care 304 mg/dL (70-110)
--- NOTE | 2022-08-25 12:22 | PC.SOCIAL ---
IMM Update pg 2 of IMM updated and reviewed w/ patient. Copy provided and Copy in chart dated, and initialed.
[2022-08-25 16:58] LABS: Glucose Point of Care 174 mg/dL (70-110)
[2022-08-25] MEDS: atorvastatin 40 mg Tablet 20 MG PO (20:43)
[2022-08-25] MEDS: latanoprost 0.005% Op Soln 2.5 mL Btl 1 DROP EYE-BOTH (20:45)
[2022-08-25] MEDS: nystatin cream 30 gm 1 APPLIC TOPICAL (20:46)
[2022-08-25] MEDS: cefTRIAXone 1,000 MG in sodium chloride 0.9% (plus) 50 ML 100 MG IV (20:55)
[2022-08-25 20:57] LABS: Glucose Point of Care 259 mg/dL (70-110)
--- NOTE | 2022-08-25 22:27 | PM.PN ---
Subjective Subjective: She denies any additional symptoms today. Breathing subjectively did not worsen. Denies chest pain. No worsening of rash. Had a bowel movement. Discussed with her results of thyroid ultrasound. Chest x-ray. Renal function. Vitals/I&O/Wt Last Vital Signs Temp 99.5 F 08/25/22 19:56 Pulse 91 08/25/22 19:56 Resp 22 H 08/25/22 19:56 BP 165/59 08/25/22 19:56 Pulse Ox 95 08/25/22 19:56 O2 Del Method 08/25/22 19:56 O2 Flow Rate 5 08/25/22 19:56 08/25/22 08/25/22 08/25/22 06:59 14:59 22:59 Intake Total 100 / 1090 936 / 936 150 / 1086 Output Total 350 / 1350 1200 / 1200 Balance -250 / -260 936 / 936 -1050 / -114 Weight last 48 hrs Weight 109.633 kg Weight 108.091 kg Physical Exam Const: COMMON NORMALS: patient oriented x3 and alert GENERAL APPEARANCE: cooperative NUTRITIONAL APPEARANCE: obese morbidly obese ORIENTATION/CONSCIOUSNESS: Yes awake HENMT: COMMON NORMALS: oropharynx normal Neck/C-Spine: COMMON NORMALS: no JVD Resp: COMMON NORMALS: normal respiratory effort AUSCULTATION: breath sounds absent bilateral (Lower) Cardio: COMMON NORMALS: no JVD, regular rhythm, S1 normal heart sound present, S2 normal heart sound present and No murmurs present (Cardio) RHYTHM: regular rhythm HEART SOUNDS: S1 normal heart sound present and S2 normal heart sound present GI: COMMON NORMALS: Normal to inspection, nondistended, normoactive bowel sounds present, Soft to palpation and non-tender PALPATION: Yes Soft to palpation OTHER: Large pannus. Extremity: COMMON NORMALS: no joint enlargement and no pedal edema GENERAL: Yes edema Neuro: COMMON NORMALS: patient oriented x3 and moves all extremities SENSORIUM/ORIENTATION: Yes alert Skin: COMMON NORMALS: no rashes or lesions noted GENERAL SKIN EXAM: no rashes or lesions noted OTHER: Rash under breasts, more severe on the right. Yeasty odor. Urinary Catheter Management: Bocanegra Latex Free: Cath Placed During This Visit: yes Reason for Continuing Indwelling Catheter: Accurate Measurement of Urinary Output in Critically Ill Patients Urinary Catheter Date of Insertion: 08/20/22 Urinary Catheter Time of Insertion: 20:12 Data 08/23/22 03:22 08/25/22 06:18 Micro: Microbiology 08/20/22 17:52 Blood Culture - Final Blood NO GROWTH AFTER 5 DAYS 08/20/22 17:17 Blood Culture - Final Blood NO GROWTH AFTER 5 DAYS A&P Assessment and plan (1) MATTIE (acute kidney injury): Stop losartan. With mild improvement today with withholding diuretics, albumin, repeated albumin today again. For now diuretics still on hold, repeat renal function in the morning. Reassess volume status. Will reassess additional x-ray. In case oxygenation improving, she is feeling better, and no persistent pulmonary edema on x-ray, may be able to achieve oral diuretics, possibly on as-needed basis. If still in CHF, MATTIE may portend worse prognosis. (2) Acute diastolic CHF (congestive heart failure): In negative balance. Overall symptoms are better, but she still endorses intermittent dyspnea even at rest. Pleural effusion appears to have resolved. Still moderate mixed picture with pulmonary congestion, pneumonia possibility on chest x-ray. However, with MATTIE, creatinine was 1.4. Noted mild hyponatremia, 130. Held additional Lasix. Possibly secondary to diuretics as discussed with her, Lasix also received a dose of metolazone. Given a dose of albumin. Recheck chemistries requested. Potassium noted 3.9. Follow-up chemistry requested. Breathing is improving. Requiring 3.5 L of oxygen. R potassium looks okay. Needs monitoring with IV diuresis. Requested. Magnesium today is better 2. Acute diastolic CHF. Additionally underlying possibly severe aortic stenosis. Monitor I&O, weights requested. (3) Fever: Possible pneumonia, with some persistence of dyspnea, hypoxia. Continue ceftriaxone, will add azithromycin. Last QTc 449. She is having some cough, although not productive. D-dimer 08/20 noted not elevated. We will check urine bacterial antigens, Legionella antigen. Repeat CBC for white count. Low-grade fever 100 Fahrenheit resolved, with dyspnea, reviewed COVID-19 PCR panel, negative. UTI. Urine culture reviewed, pansensitive E. coli. Continue ceftriaxone. Bed intertrigo under breasts, nystatin cream added. (4) HTN (hypertension): Appears MATTIE, possibly from losartan. Stop losartan. Recheck renal function. Still hypertensive. Continue clonidine. Possibly trigger for decompensation of CHF, although she states does check her blood pressures at home. Needs monitoring of creatinine with ARB initiation also in the setting of IV diuretics. Cardiac diet. (5) Pleural effusion, bilateral: Resolved on reassessment x-ray. Bilateral moderate pleural effusion secondary to CHF. No signs of pneumonia or acute infection. Diuresis as above. Consider reassessment for improvement. Reviewed TSH, normal. Will need reassessment x-ray. (6) Globus sensation: Thyroid nodules noted on ultrasound will need follow-up. Globus sensation is bothering her swallowing. Requested thyroid ultrasound. Plan UTI: Pansensitive E. coli, continue ceftriaxone. Possible pneumonia: Ceftriaxone, azithromycin. Reflux: This appears to have improved with increase in dose to twice daily. Rash under breasts: Candidal intertrigo. Continue nystatin cream. Constipation: Had a BM. Continue bowel regimen. Initial acute on chronic respiratory failure with requirement for 6 L oxygen by nasal cannula in ER. Improving. Currently on 4 L. Normally on 3 L for CHF, COPD and other comorbidities. As above. GREY: On CPAP at home. Requested. States has not missed CPAP at home. Morbid obesity: Follow-up with primary provider for options regarding weight loss. DM2: Increase Lantus. Consistent carbohydrate diet, continue Lantus, insulin sliding scale. Monitor blood glucose. COPD: Does not appear currently in exacerbation, or monitor symptoms. Hidradenitis suppurativa: States that she follows with a financial services assistant. Reports that she is healing some wounds in her groin. Continue clindamycin. Says she is on clindamycin per her financial services assistant for pretty much lifelong suppression. Follow-up treating provider. MDS Anemia History of decubitus ulcer Other medical problems Attestations Medical Necessity Statement*: Continue assessment management of decompensated CHF, possible pneumonia, in setting of MATTIE, treatment of UTI, additional comorbidities as above. Diagnoses MATTIE (acute kidney injury) N17.9 Acute diastolic CHF (congestive heart failure) I50.31 Fever R50.9 HTN (hypertension) I10 Pleural effusion, bilateral J90 Globus sensation R09.89
[2022-08-25] MEDS: azithromycin 500 MG in sodium chloride 0.9% 250 ML 250 MG IV (22:50)
[2022-08-26] VITALS (16 sets, daily range): BP systolic 144–175; BP diastolic 52–91; PULSE 72–92; RESP 17–20; TEMP 36.5–36.9; O2SAT 85–99
[2022-08-26] MEDS: ipratropium-albuterol 3 mL Neb INHALATION (01:28)
--- NOTE | 2022-08-26 06:00 | XRR_ITS ---
PROCEDURE INFORMATION: Exam: XR Chest Exam date and time: 08/26/2022 5:06 AM Age: 82 years old Clinical indication: Other: Hypoxia; Patient HX: On c-pap TECHNIQUE: Imaging protocol: Radiologic exam of the chest. Views: 1 view. COMPARISON: CR (CHEST, ) 08/25/2022 5:50 AM FINDINGS: Lungs: See Soft tissues finding. Pleural spaces: Unremarkable. No pleural effusion. No pneumothorax. Heart/Mediastinum: Unremarkable. No cardiomegaly. Bones/joints: Unremarkable. Soft tissues: There is haziness seen in the lower hemithoraces explained, at least in part, by overlying soft tissues. There are some strandy opacities present in the lower hemithoraces that may represent atelectasis. XR/XR chest 1V portable [id number] IMPRESSION: 1. Haziness seen in the lower hemithoraces may be explained by overlying soft tissues. 2. Strandy opacities in the lower hemithoraces likely represents atelectasis.
[2022-08-26 06:07] LABS: Glucose Point of Care 176 mg/dL (70-110)
[2022-08-26 06:07] LABS: Basophils % 0.3 %; Eosinophils # 0.2 10^3/uL (0.0-0.8); Hematocrit 29.8 % (37.0-47.0); Hemoglobin 9.1 g/dL (11.5-15.3); Mean Corpuscular HGB Conc 30.5 g/dL (30.0-36.0); Mean Corpuscular Hemoglobin 30.2 pg (28.0-34.0); Mean Platelet Volume 9.8 fL (7.4-10.4); Monocytes # 0.5 10^3/uL (0.2-0.9); Monocytes % 8.9 %; Neutrophils # 4.22 10^3/uL (1.8-7.7); Neutrophils % 71.1 %; Nucleated Red Blood Cells % 0 %; Platelet Count 181 10^3/cmm (130-400); Red Blood Count 3.01 10^6/uL (4.1-5.3); Red Cell Distribution Width 15.6 % (12.1-15.1); White Blood Count 5.9 10^3/uL (4.0-10.0)
[2022-08-26 06:41] LABS: Anion Gap 12.4 (5-19); Blood Urea Nitrogen 34 mg/dL (8-23); Calcium 11.6 mg/dL (8.5-10.5); Carbon Dioxide 31 mmol/L (22-29); Chloride 98 mmol/L (98-107); Glucose 180 mg/dL (65-115); Osmolality Calculated 296 mOsm/kg (285-295); Potassium 4.4 mmol/L (3.5-5.1); Sodium 137 mmol/L (136-145)
[2022-08-26] MEDS: heparin 5,000 unit/mL INJ 1 mL 5000 UNIT SUBCUT ×2 (09:46→20:55)
[2022-08-26] MEDS: insulin lispro 100 unit/1 mL SUBCUT ×4 (09:46→21:43)
[2022-08-26] MEDS: cholecalciferol (vitamin D3) 1,000 unit Tablet 1000 UNIT PO (09:47)
[2022-08-26] MEDS: aspirin 81 mg Chew Tablet PO (09:47)
[2022-08-26] MEDS: cloNIDine 0.1 mg Tablet 0.2 MG PO ×2 (09:47→18:24)
[2022-08-26] MEDS: cilostazol 100 mg Tablet PO ×2 (09:47→18:24)
[2022-08-26] MEDS: dorzolamide 2% Op Soln 10 mL Btl 1 DROP EYE-BOTH ×2 (09:48→20:53)
[2022-08-26] MEDS: clindamycin 150 mg Capsule 300 MG PO ×3 (09:48→20:50)
[2022-08-26] MEDS: ferrous sulfate EC 325 mg Tablet PO ×3 (09:48→20:54)
[2022-08-26] MEDS: fluticasone nasal spray 16gm Btl 1 SPRAY INTRANASAL (09:48)
[2022-08-26] MEDS: gabapentin 100 mg Capsule PO ×3 (09:49→20:50)
[2022-08-26] MEDS: mupirocin oint 22 gm 1 APPLIC TOPICAL (09:50)
[2022-08-26] MEDS: nystatin cream 30 gm 1 APPLIC TOPICAL (09:50)
[2022-08-26] MEDS: pantoprazole DR 40 mg Tablet PO ×2 (09:50→18:24)
[2022-08-26] MEDS: ipratropium 0.5 mg/2.5 mL Neb INHALATION ×3 (10:19→20:02)
[2022-08-26] MEDS: insulin glargine 100 units/1 mL 110 UNIT SUBCUT (10:19)
[2022-08-26] MEDS: albuterol 2.5 mg/3 mL Neb INHALATION ×3 (10:19→20:02)
[2022-08-26 11:23] LABS: Glucose Point of Care 315 mg/dL (70-110)
--- NOTE | 2022-08-26 11:44 | P.PN_ITS ---
Subjective Subjective: Patient feels subjectively short of breath this morning. States that her breathing is not back to baseline. Kidney function is improved to 0.9. Urine output 2.3 L over the last 24 hours. Net -5.5 L since admission. Chest x-ray this morning showing bilateral hazy opacities right worse than left per my interpretation. Currently saturating 94% on 4 L/min supplemental O2 Medications: Reviewed: Yes Vitals/I&O/Wt Last Vital Signs Temp 98.0 F 08/26/22 08:00 Pulse 89 08/26/22 10:20 Resp 18 08/26/22 10:20 BP 164/91 08/26/22 09:47 Pulse Ox 94 08/26/22 10:20 O2 Del Method 08/26/22 10:20 O2 Flow Rate 3 08/26/22 10:20 08/25/22 08/26/22 08/26/22 22:59 06:59 14:59 Intake Total 150 / 1086 250 / 1336 240 / 240 Output Total 1650 / 1650 650 / 2300 Balance -1500 / -564 -400 / -964 240 / 240 Weight last 48 hrs Weight 109.089 kg Weight 109.633 kg Physical Exam Narrative: General: No acute distress, AO x3 HEENT: PERRLA, pupils bilaterally equal and reactive, pallors not present Chest: Normal vesicular breath sounds, no added sounds, equal good air entry bilaterally CVS: S1-S2 regular, no murmurs, no tachycardia, no gallops, no rubs Abdomen: Soft, nontender, no organomegaly, bowel sounds present Neuro: No focal deficits, no facial deformity, AO x3, power 5/5 in all limbs Extremities: Bilateral lower extremity 1+ pitting edema Urinary Catheter Management: Bocanegra Latex Free: Cath Placed During This Visit: yes Reason for Continuing Indwelling Catheter: Accurate Measurement of Urinary Outp ut in Critically Ill Patients Urinary Catheter Date of Insertion: 08/20/22 Urinary Catheter Time of Insertion: 20:12 Data 08/26/22 05:31 08/26/22 05:31 Micro: Microbiology 08/26/22 00:00 Bacterial Antigens - Final Urine,Clean Catch 08/26/22 00:00 Legionella Urinary Antigen - Final Urine Catheterized 08/20/22 17:52 Blood Culture - Final Blood NO GROWTH AFTER 5 DAYS 08/20/22 17:17 Blood Culture - Final Blood NO GROWTH AFTER 5 DAYS A&P Assessment and plan (1) MATTIE (acute kidney injury): Now resolved, creatinine trending back to 0.9. Continue to hold losartan Creatinine improved with with withholding diuretics, albumin This morning states that she is not breathing very comfortably. Oxygen saturations 94% on 4 L/min supplemental O2. Chest x-ray this morning with bilateral infiltrates, right greater than left, appears to be pulmonary edema per my interpretation. We will resume diuresis with oral Lasix today. (2) Acute diastolic CHF (congestive heart failure): In negative balance. Overall symptoms are better, but she still endorses intermittent dyspnea even at rest. Chest x-ray still showing bilateral vascular congestion. We will resume Lasix today, will start off with oral dosing 60 mg p.o. daily (previously on 40 mg IV twice daily + metolazone) and monitor closely over the next 24 hours. Discontinue Bocanegra catheter, encouraged to urinate in the bedside commode so that her urine output can still be measured accurately. Overall impression is that of acute diastolic CHF. Additionally underlying possibly severe aortic stenosis. Monitor I&O, weights requested. (3) Fever: Possible pneumonia initially upon admission, no gross consolidation noted. Fever likely to be related to urine tract infection. Discontinue azithromycin today She is continuing ceftriaxone for UTI, E. coli on urine culture COVID-19 PCR panel, negative. (4) HTN (hypertension): Appears MATTIE, possibly from losartan. Stop losartan. Recheck renal function. Hypertensive today after discontinuing losartan, will add hydralazine Still hypertensive. Continue clonidine. (5) Pleural effusion, bilateral: Resolved on reassessment x-ray. (6) Globus sensation: Thyroid nodules noted on ultrasound will need follow-up. Globus sensation is bothering her swallowing. Requested thyroid ultrasound. Plan UTI: Pansensitive E. coli, continue ceftriaxone. Reflux: This appears to have improved with increase in dose to twice daily. Rash under breasts: Candidal intertrigo. Continue nystatin cream. Follow-up Constipation: Had a BM. Continue bowel regimen. Initial acute on chronic respiratory failure with requirement for 6 L oxygen by nasal cannula in ER. Improving. Currently on 4 L. Normally on 3 L for CHF, COPD and other comorbidities. As above. GREY: On CPAP at home. Requested. States has not missed CPAP at home. Morbid obesity: Follow-up with primary provider for options regarding weight loss. DM2:on insulin Hidradenitis suppurativa: States that she follows with a artificial plastic eye maker. Reports that she is healing some wounds in her groin. Continue clindamycin. Says she is on clindamycin per her artificial plastic eye maker for pretty much lifelong suppression. Follow-up treating provider. MDS Anemia History of decubitus ulcer Other medical problems Attestations Medical Necessity Statement*: Resuming diuresis today with close monitoring of renal function, and your output. Remove Bocanegra, monitor for any urinary retention Coding Level of Care Code Acute Code for Chg Fwd Moderate MDM includes number and complexity of problems actively addressed during encounter, amount and/or complexity of data reviewed/ordered and described risk of complication, morbidity or mortality of management as documented Diagnoses MATTIE (acute kidney injury) N17.9 Acute diastolic CHF (congestive heart failure) I50.31 Fever R50.9 HTN (hypertension) I10 Pleural effusion, bilateral J90 Globus sensation R09.89
[2022-08-26] MEDS: hyDRALAzine 10 mg Tablet PO ×3 (12:10→20:50)
[2022-08-26] MEDS: FUROsemide 40 mg Tablet 60 MG PO (12:10)
[2022-08-26 16:56] LABS: Glucose Point of Care 275 mg/dL (70-110)
[2022-08-26] MEDS: atorvastatin 40 mg Tablet 20 MG PO (20:50)
[2022-08-26] MEDS: latanoprost 0.005% Op Soln 2.5 mL Btl 1 DROP EYE-BOTH (20:53)
[2022-08-26] MEDS: cefTRIAXone 1,000 MG in sodium chloride 0.9% (plus) 50 ML 100 MG IV (20:54)
[2022-08-26 21:00] LABS: Glucose Point of Care 353 mg/dL (70-110)
[2022-08-27] VITALS (16 sets, daily range): BP systolic 140–175; BP diastolic 56–94; PULSE 55–94; RESP 12–23; TEMP 36.7–36.9; O2SAT 91–96
[2022-08-27] MEDS: albuterol 2.5 mg/3 mL Neb INHALATION ×2 (02:08→13:38)
[2022-08-27] MEDS: ipratropium 0.5 mg/2.5 mL Neb INHALATION ×3 (02:08→13:38)
[2022-08-27 04:09] LABS: Basophils % 0.5 %; Eosinophils # 0.2 10^3/uL (0.0-0.8); Hematocrit 30.4 % (37.0-47.0); Hemoglobin 9.5 g/dL (11.5-15.3); Lymphocytes # 0.9 10^3/uL (0.8-4.8); Lymphocytes % 15.9 %; Mean Corpuscular HGB Conc 31.3 g/dL (30.0-36.0); Mean Corpuscular Hemoglobin 30.5 pg (28.0-34.0); Mean Corpuscular Volume 97.7 fl (81-99); Mean Platelet Volume 10.1 fL (7.4-10.4); Monocytes # 0.7 10^3/uL (0.2-0.9); Neutrophils # 3.68 10^3/uL (1.8-7.7); Neutrophils % 67.2 %; Nucleated Red Blood Cells % 0 %; Platelet Count 188 10^3/cmm (130-400); Red Blood Count 3.11 10^6/uL (4.1-5.3); Red Cell Distribution Width 15.4 % (12.1-15.1); White Blood Count 5.5 10^3/uL (4.0-10.0)
[2022-08-27 04:34] LABS: Magnesium 1.8 mg/dL (1.7-2.3)
[2022-08-27 06:51] LABS: Glucose Point of Care 176 mg/dL (70-110)
[2022-08-27] MEDS: hyDRALAzine 10 mg Tablet PO ×2 (09:46→15:09)
[2022-08-27] MEDS: FUROsemide 40 mg Tablet 60 MG PO (09:46)
[2022-08-27] MEDS: aspirin 81 mg Chew Tablet PO (09:47)
[2022-08-27] MEDS: clindamycin 150 mg Capsule 300 MG PO ×3 (09:47→20:23)
[2022-08-27] MEDS: pantoprazole DR 40 mg Tablet PO ×2 (09:47→17:29)
[2022-08-27] MEDS: cilostazol 100 mg Tablet PO ×2 (09:47→17:29)
[2022-08-27] MEDS: gabapentin 100 mg Capsule PO ×3 (09:48→20:23)
[2022-08-27] MEDS: cholecalciferol (vitamin D3) 1,000 unit Tablet 1000 UNIT PO (09:48)
[2022-08-27] MEDS: cloNIDine 0.1 mg Tablet 0.2 MG PO ×2 (09:49→17:28)
[2022-08-27] MEDS: heparin 5,000 unit/mL INJ 1 mL 5000 UNIT SUBCUT ×2 (09:50→20:24)
[2022-08-27] MEDS: insulin lispro 100 unit/1 mL SUBCUT ×4 (09:50→20:29)
[2022-08-27] MEDS: ferrous sulfate EC 325 mg Tablet PO ×3 (09:50→20:23)
[2022-08-27] MEDS: fluticasone nasal spray 16gm Btl 1 SPRAY INTRANASAL (09:51)
[2022-08-27] MEDS: nystatin cream 30 gm 1 APPLIC TOPICAL ×2 (09:52→20:34)
[2022-08-27] MEDS: insulin glargine 100 units/1 mL 110 UNIT SUBCUT (09:52)
[2022-08-27] MEDS: dorzolamide 2% Op Soln 10 mL Btl 1 DROP EYE-BOTH ×2 (09:55→20:27)
[2022-08-27] MEDS: mupirocin oint 22 gm 1 APPLIC TOPICAL (09:56)
--- NOTE | 2022-08-27 11:02 | PC.SOCIAL ---
IMM Updated Updated pt on IMM. No questions voiced. Provided pt a copy. Initialed, dated, & timed copy in chart.
[2022-08-27 11:21] LABS: Glucose Point of Care 329 mg/dL (70-110)
[2022-08-27 15:58] LABS: Glucose Point of Care 207 mg/dL (70-110)
--- NOTE | 2022-08-27 17:01 | P.PN_ITS ---
Subjective Subjective: Patient feels after resuming Lasix yesterday. Creatinine is not available from this morning. Patient is symptomatically improving. Lower extremity edema is improving today. Medications: Reviewed: Yes Vitals/I&O/Wt Last Vital Signs Temp 98.0 F 08/27/22 11:56 Pulse 87 08/27/22 14:00 Resp 18 08/27/22 13:38 BP 140/60 08/27/22 11:56 Pulse Ox 91 08/27/22 13:38 O2 Del Method 08/27/22 13:38 O2 Flow Rate 2 08/27/22 13:38 08/27/22 08/27/22 08/27/22 06:59 14:59 22:59 Intake Total 600 / 600 50 / 650 Output Total 400 / 1600 200 / 200 Balance -400 / -780 600 / 600 -150 / 450 Weight last 48 hrs Weight 109.316 kg Weight 109.089 kg Physical Exam Narrative: General: No acute distress, AO x3 HEENT: PERRLA, pupils bilaterally equal and reactive, pallors not present Chest: Normal vesicular breath sounds, no added sounds, equal good air entry bilaterally CVS: S1-S2 regular, no murmurs, no tachycardia, no gallops, no rubs Abdomen: Soft, nontender, no organomegaly, bowel sounds present Neuro: No focal deficits, no facial deformity, AO x3, power 5/5 in all limbs Extremities: Bilateral lower extremity 1+ pitting edema Urinary Catheter Management: Bocanegra Latex Free: Cath Placed During This Visit: yes Reason for Continuing Indwelling Catheter: Accurate Measurement of Urinary Output in Critically Ill Patients Urinary Catheter Date of Insertion: 08/20/22 Urinary Catheter Time of Insertion: 20:12 Data 08/27/22 03:50 08/26/22 05:31 A&P Assessment and plan (1) MATTIE (acute kidney injury): Now resolved, creatinine trending back to 0.9. Continue to hold losartan Creatinine improved with with withholding diuretics, albumin Resumed diuresis with po lasix, will check cr in am (2) Acute diastolic CHF (congestive heart failure): In negative balance. Overall symptoms are better, but she still endorses intermittent dyspnea even at rest. Chest x-ray still showing bilateral vascular congestion. We will resume Lasix today, will start off with oral dosing 60 mg p.o. daily (previously on 40 mg IV twice daily + metolazone) and monitor closely over the next 24 hours. Discontinue Bocanegra catheter, encouraged to urinate in the bedside commode so that her urine output can still be measured accurately. Overall impression is that of acute diastolic CHF. Additionally underlying possibly severe aortic stenosis. Monitor I&O, weights requested. (3) Fever: Possible pneumonia initially upon admission, no gross consolidation noted. Fever likely to be related to urine tract infection. Discontinue azithromycin today She is continuing ceftriaxone for UTI, E. coli on urine culture. D/c today as completed adequate course since 08/22. COVID-19 PCR panel, negative. (4) HTN (hypertension): Appears MATTIE, possibly from losartan. Stop losartan. Recheck renal function. Hypertensive todayeven after addition of hydralazine, increase dose to 25 mg tid Still hypertensive. Continue clonidine. (5) Pleural effusion, bilateral: Resolved on reassessment x-ray. (6) Globus sensation: Thyroid nodules noted on ultrasound will need follow-up. Globus sensation is bothering her swallowing. Requested thyroid ultrasound. Plan UTI: Pansensitive E. coli, continue ceftriaxone. Reflux: This appears to have improved with increase in dose to twice daily. Rash under breasts: Candidal intertrigo. Continue nystatin cream. Follow-up Constipation: Had a BM. Continue bowel regimen. Initial acute on chronic respiratory failure with requirement for 6 L oxygen by nasal cannula in ER. Improving. Currently on 4 L. Normally on 3 L for CHF, COPD and other comorbidities. As above. GREY: On CPAP at home. Requested. States has not missed CPAP at home. Morbid obesity: Follow-up with primary provider for options regarding weight loss. DM2:on insulin Hidradenitis suppurativa: States that she follows with a hydroelectric machinery mechanic helper. Reports that she is healing some wounds in her groin. Continue clindamycin. Says she is on clindamycin per her hydroelectric machinery mechanic helper for pretty much lifelong suppression. Follow-up treating provider. MDS Anemia History of decubitus ulcer Other medical problems Attestations Medical Necessity Statement*: continue oral diuretics today, check renal function in am, increase BP medications, If cr stable and BP controlled, will plan to d/c in the next 24 hrs Coding Level of Care Code Acute Code for Chg Fwd Moderate MDM includes number and complexity of problems actively addressed during encounter, amount and/or complexity of data reviewed/ordered and described risk of complication, morbidity or mortality of management as documented Diagnoses MATTIE (acute kidney injury) N17.9 Acute diastolic CHF (congestive heart failure) I50.31 Fever R50.9 HTN (hypertension) I10 Pleural effusion, bilateral J90 Globus sensation R09.89
[2022-08-27] MEDS: polyethylene glycol 3350 Pkt 17 gm PO (17:29)
[2022-08-27] MEDS: atorvastatin 40 mg Tablet 20 MG PO (20:23)
[2022-08-27] MEDS: hyDRALAzine 25 mg Tablet PO (20:23)
[2022-08-27] MEDS: latanoprost 0.005% Op Soln 2.5 mL Btl 1 DROP EYE-BOTH (20:29)
[2022-08-27 20:39] LABS: Glucose Point of Care 231 mg/dL (70-110)
[2022-08-28] VITALS (9 sets, daily range): BP systolic 130–164; BP diastolic 53–93; PULSE 74–86; RESP 19–20; TEMP 36.8–37; O2SAT 92–97
[2022-08-28] MEDS: ipratropium 0.5 mg/2.5 mL Neb INHALATION ×2 (01:29→09:09)
[2022-08-28] MEDS: albuterol 2.5 mg/3 mL Neb INHALATION ×2 (01:30→09:09)
--- NOTE | 2022-08-28 04:00 | XR_ITS ---
WS: [id number] Exam: XR chest 1V portable [id number] Date/Time of Exam: 08/28/2022 3:50 AM Reason For Exam: follow up pulmonary edema Comparison 08/26/2022. The lungs are fully expanded. There are no consolidating infiltrates. Heart size top limits normal. T he mediastinum is normal in contour. Bony structures are intact. Monitoring leads superimpose the bee st. XR/XR chest 1V portable [id number] IMPRESSION: 1. No acute cardiopulmonary finding.
[2022-08-28 04:13] LABS: Basophils # 0.1 10^3/uL (0.0-0.1); Basophils % 0.8 %; Eosinophils # 0.2 10^3/uL (0.0-0.8); Eosinophils % 3.6 %; Hematocrit 31.5 % (37.0-47.0); Hemoglobin 10.1 g/dL (11.5-15.3); Lymphocytes # 1.1 10^3/uL (0.8-4.8); Lymphocytes % 16.7 %; Mean Corpuscular HGB Conc 32.1 g/dL (30.0-36.0); Mean Corpuscular Hemoglobin 31.4 pg (28.0-34.0); Mean Corpuscular Volume 97.8 fl (81-99); Monocytes # 0.7 10^3/uL (0.2-0.9); Monocytes % 10.7 %; Neutrophils # 4.29 10^3/uL (1.8-7.7); Neutrophils % 67.4 %; Nucleated Red Blood Cells % 0 %; Platelet Count 224 10^3/cmm (130-400); Red Blood Count 3.22 10^6/uL (4.1-5.3); Red Cell Distribution Width 15.4 % (12.1-15.1); White Blood Count 6.4 10^3/uL (4.0-10.0)
[2022-08-28 04:37] LABS: Alanine Aminotransferase 21 U/L (0-33); Albumin Level 3.6 g/dL (3.5-5.2); Alkaline Phosphatase 77 U/L (35-105); Blood Urea Nitrogen 35 mg/dL (8-23); Calcium 11.7 mg/dL (8.5-10.5); Carbon Dioxide 32 mmol/L (22-29); Chloride 98 mmol/L (98-107); Glucose 106 mg/dL (65-115); Osmolality Calculated 298 mOsm/kg (285-295); Sodium 140 mmol/L (136-145); Total Bilirubin 0.3 mg/dL (0.15-1.2); Total Protein 6.6 g/dL (6.6-8.7)
[2022-08-28 05:35] LABS: Anion Gap 13.8 (5-19)
[2022-08-28 05:36] LABS: Aspartate Amino Transferase 33 U/L (0-32); Potassium 3.8 mmol/L (3.5-5.1)
[2022-08-28 07:34] LABS: Glucose Point of Care 127 mg/dL (70-110)
[2022-08-28] MEDS: heparin 5,000 unit/mL INJ 1 mL 5000 UNIT SUBCUT (08:18)
[2022-08-28] MEDS: gabapentin 100 mg Capsule PO (08:19)
[2022-08-28] MEDS: FUROsemide 40 mg Tablet 60 MG PO (08:19)
[2022-08-28] MEDS: ferrous sulfate EC 325 mg Tablet PO (08:19)
[2022-08-28] MEDS: pantoprazole DR 40 mg Tablet PO (08:19)
[2022-08-28] MEDS: aspirin 81 mg Chew Tablet PO (08:20)
[2022-08-28] MEDS: cilostazol 100 mg Tablet PO (08:20)
[2022-08-28] MEDS: cholecalciferol (vitamin D3) 1,000 unit Tablet 1000 UNIT PO (08:20)
[2022-08-28] MEDS: cloNIDine 0.1 mg Tablet 0.2 MG PO (08:21)
[2022-08-28] MEDS: clindamycin 150 mg Capsule 300 MG PO (08:22)
[2022-08-28] MEDS: hyDRALAzine 25 mg Tablet PO (08:25)
[2022-08-28] MEDS: polyethylene glycol 3350 Pkt 17 gm PO (08:25)
[2022-08-28] MEDS: fluticasone nasal spray 16gm Btl 1 SPRAY INTRANASAL (08:25)
[2022-08-28] MEDS: insulin glargine 100 units/1 mL 110 UNIT SUBCUT (08:30)
[2022-08-28] MEDS: dorzolamide 2% Op Soln 10 mL Btl 1 DROP EYE-BOTH (08:30)
[2022-08-28] MEDS: mupirocin oint 22 gm 1 APPLIC TOPICAL (08:34)
[2022-08-28] MEDS: nystatin cream 30 gm 1 APPLIC TOPICAL (08:35)
--- NOTE | 2022-08-28 09:25 | PM.DCS ---
Discharge Providers Date of Admission: 08/20/22 18:36 Date of Discharge: August 28, 2022 Attending Provider at Admission: Milan Tyler Attending Provider at Discharge: Agnes Hackett MD Primary Care Provider: Deep Angeles DO Diagnoses at Discharge Discharge Diagnosis (1) MATTIE (acute kidney injury): Status: Acute (2) Acute diastolic CHF (congestive heart failure): Details from hospital stay: Acute on chronic disatolic heart failure Last EF 02/2022 with LVEF 62%, gr 3 diastolic dysfunction Status: Acute (3) Fever: Status: Acute (4) HTN (hypertension): Status: Acute (5) Pleural effusion, bilateral: Status: Acute (6) Globus sensation: Status: Acute Reason for Visit Reason for Visit: SOB Hospital Course Hospital Course 82-year-old lady with HFpEF, possibly severe aortic stenosis, COPD, GREY, chronic oxygen 3lpm, hidradenitis suppurativa chronically on clindamycin, was admitted of progressive dyspnea, acute on chronic diastolic CHF symptoms new bilateral pleural effusions, was started on diuresis, while in the hospital also spiked a fever, diagnosed with a UTI, but with also possible pneumonia. Urine cx showed E. coli for which she was treated with Ceftriaxone. Initially diuresed well with iv lasix which needed to be held due to MATTIE with diuresis, creatinine up to 1.4. Partially may be secondary to losartan as well, which has been discontinued. Hydralazine has been added as a new medication for BP control. Diuretics were briefly on hold, now resumed on po Lsix 60mg daily which she is tolerating well. CXR on discharge shows clear lungs per radiology read. Mattie resolved. Patient feels significantly improved at discharge. She also has intertrigo under her breasts, recommend use of clotrimazole ointment at discharge. Follow up with PCP in one week. Physical Exam Narrative: General: No acute distress, AO x3. HEENT: PERRLA, pupils bilaterally equal and reactive, pallors not present, wearing supplemntal 02 3lpm Chest: Normal vesicular breath sounds, no added sounds, equal good air entry bilaterally CVS: S1-S2 regular, no murmurs, no tachycardia, no gallops, no rubs Abdomen: Soft, nontender, no organomegaly, bowel sounds present Neuro: No focal deficits, no facial deformity, AO x3, power 5/5 in all limbs Extremities: improving LE edema Urinary Catheter Management: Bocanegra Latex Free: Cath Placed During This Visit: yes Reason for Continuing Indwelling Catheter: Accurate Measurement of Urinary Output in Critically Ill Patients Urinary Catheter Date of Insertion: 08/20/22 Urinary Catheter Time of Insertion: 20:12 Discharge Data Studies Completed and Pending Completed Studies During Hospitalization Category Date Time Status CXRP [XR chest 1V portable [id number]] AM LABS Exams 08/28/22 04:00 Completed XR chest 1V portable [id number] Routine Exams 08/25/22 06:00 Completed XR chest 1V portable [id number] Routine Exams 08/26/22 06:00 Completed XR chest 1V portable [id number] Stat Exams 08/20/22 16:47 Completed [place] thyroid [id number] Routine Ultrasound 08/24/22 15:39 Completed Radiology Impressions Thyroid Ultrasound 08/24/22 15:39 IMPRESSION: Hypoechoic solid nodule with TI-RADS 4 imaging characteristics in the right mid thyroid lobe, for which follow-up is recommended. Chest X-Ray 08/28/22 04:00 IMPRESSION: 1. No acute cardiopulmonary finding. Laboratory Results WBC 6.4 10^3/uL (4.0-10.0) 08/28/22 03:38 RBC 3.22 10^6/uL (4.1-5.3) L 08/28/22 03:38 Hgb 10.1 g/dL (11.5-15.3) L 08/28/22 03:38 Hct 31.5 % (37.0-47.0) L 08/28/22 03:38 MCV 97.8 fl (81-99) 08/28/22 03:38 MCH 31.4 pg (28.0-34.0) 08/28/22 03:38 MCHC 32.1 g/dL (30.0-36.0) 08/28/22 03:38 RDW 15.4 % (12.1-15.1) H 08/28/22 03:38 Plt Count 224 10^3/cmm (130-400) 08/28/22 03:38 MPV 10.0 fL (7.4-10.4) 08/28/22 03:38 Neut % (Auto) 67.4 % 08/28/22 03:38 Lymph % (Auto) 16.7 % 08/28/22 03:38 [place] % (Auto) 10.7 % 08/28/22 03:38 Eos % (Auto) 3.6 % 08/28/22 03:38 Baso % (Auto) 0.8 % 08/28/22 03:38 Neut # (Auto) 4.29 10^3/uL (1.8-7.7) 08/28/22 03:38 Lymph # (Auto) 1.1 10^3/uL (0.8-4.8) 08/28/22 03:38 [place] # (Auto) 0.7 10^3/uL (0.2-0.9) 08/28/22 03:38 Eos # (Auto) 0.2 10^3/uL (0.0-0.8) 08/28/22 03:38 Baso # (Auto) 0.1 10^3/uL (0.0-0.1) 08/28/22 03:38 Nucleated RBC % (auto) 0 % 08/28/22 03:38 Nucleated RBCs # 0.0 /100WBC 08/28/22 03:38 D-Dimer 0.47 ug/mIFEU (0-0.59) 08/20/22 16:41 Sodium 140 mmol/L (136-145) 08/28/22 03:38 Potassium 3.8 mmol/L (3.5-5.1) 08/28/22 03:38 Chloride 98 mmol/L (98-107) 08/28/22 03:38 Carbon Dioxide 32 mmol/L (22-29) H 08/28/22 03:38 Anion Gap 13.8 (5-19) 08/28/22 03:38 BUN 35 mg/dL (8-23) H 08/28/22 03:38 Creatinine 0.9 mg/dL (0.5-0.9) 08/28/22 03:38 GFR Calculation Not Reportable 08/28/22 03:38 Glucose 106 mg/dL (65-115) 08/28/22 03:38 POC Glucose 127 mg/dL (70-110) H 08/28/22 07:31 Calculated Osmolality 298 mOsm/kg (285-295) H 08/28/22 03:38 Lactic Acid 2.1 mmol/L (0.5-2.2) 08/20/22 16:41 Lactic Acid (Sepsis) 2.6 mmol/L (0.5-2.2) H 08/20/22 20:00 Calcium 11.7 mg/dL (8.5-10.5) H 08/28/22 03:38 Magnesium 1.8 mg/dL (1.7-2.3) 08/27/22 03:50 Total Bilirubin 0.3 mg/dL (0.15-1.2) 08/28/22 03:38 AST 33 U/L (0-32) H 08/28/22 03:38 ALT 21 U/L (0-33) 08/28/22 03:38 Alkaline Phosphatase 77 U/L (35-105) 08/28/22 03:38 Troponin T Baseline 26 ng/L (0-10) H 08/20/22 16:41 Troponin T 120 Minute 30.37 ng/L (0-10) H 08/20/22 20:00 Delta Troponin T 4.37 ABS# (0-10) 08/20/22 20:00 Troponin T Hi Sens 6Hr 28.25 ng/L (0-10) H 08/20/22 23:08 Troponin T Hi Sens 6Hr Delta 2.25 ng/L (0-12) 08/20/22 23:08 NT-Pro-B Natriuret Pep 495 pg/mL (0-450) H 08/20/22 16:41 Total Protein 6.6 g/dL (6.6-8.7) 08/28/22 03:38 Albumin 3.6 g/dL (3.5-5.2) 08/28/22 03:38 Globulin 3.0 g/dL (1.3-4.6) 08/28/22 03:38 TSH 1.51 uIU/mL (0.27-4.20) 08/21/22 03:19 Urine Color Yellow (Yellow) 08/22/22 15:48 Urine Appearance Hazy (CLEAR) A 08/22/22 15:48 Urine pH 7 (5-7) 08/22/22 15:48 Ur Specific [place] 1.010 (1.005-1.030) 08/22/22 15:48 Urine Protein Neg (Negative) 08/22/22 15:48 Urine Glucose (UA) Norm (Normal) 08/22/22 15:48 Urine Ketones Negative (Negative) 08/22/22 15:48 Urine Blood 2+ (Negative) H 08/22/22 15:48 Urine Nitrate Negative (Negative) 08/22/22 15:48 Urine Bilirubin Neg (Negative) 08/22/22 15:48 Urine Urobilinogen Norm mg/dL (Negative) 08/22/22 15:48 Ur Leukocyte Esterase 2+ (Negative) H 08/22/22 15:48 Urine RBC 5-10 /hpf (0-2) H 08/22/22 15:48 Urine WBC 15-25 /hpf (0-5) H 08/22/22 15:48 Ur Squamous Epith Cells 0-4 /hpf (0-5) H 08/22/22 15:48 Amorphous Sediment 2+ /hpf 08/22/22 15:48 Urine Bacteria 2+ /hpf (NONE) H 08/22/22 15:48 Coronavirus 229E (PCR) Not detected (NOT DETECT) 08/21/22 18:11 Influenza Type A Ag negative (Negative) 08/20/22 16:55 Influenza Type B Ag negative (Negative) 08/20/22 16:55 SARS-CoV-2 (PCR) Not detected (NOT DETECT) 08/21/22 18:11 SARS-CoV-2 Ag (Rapid) negative (Negative) 08/20/22 16:55 Vitals Last Vital Signs Temp 98.2 F 08/28/22 07:48 Pulse 86 08/28/22 09:12 Resp 20 H 08/28/22 09:12 BP 164/53 08/28/22 08:21 Pulse Ox 97 08/28/22 09:12 O2 Del Method 08/28/22 09:12 O2 Flow Rate 3 08/28/22 09:12 Discharge Plan Discharge Patient Disposition: Home Condition: Stable Prescriptions: New hydralazine 25 mg Tablet 25 mg PO TID 30 Days Qty: 90 0RF furosemide 40 mg Tablet 60 mg PO DAILY@0800 30 Days Qty: 45 0RF clotrimazole 1 % cream 1 applic topical BID 28 Days Qty: 30 2RF Continued dorzolamide 2 % drops 1 drp ophthalmic (eye) BID ondansetron HCl 4 mg tablet 4 mg PO .prn PRN (Reason: nausea and vomiting) ipratropium-albuterol 0.5 mg-3 mg(2.5 mg base)/3 mL solution for nebulization 3 ml inhalation QID PRN (Reason: shortness of breath or wheezing) clindamycin HCl 300 mg capsule 300 mg PO TID latanoprost 0.005 % drops 1 drp ophthalmic (eye) BEDTIME Rx Instructions: (BOTH EYES) cilostazol 100 mg tablet 100 mg PO BID atorvastatin 20 mg tablet 20 mg PO BEDTIME pantoprazole 40 mg tablet,delayed release (DR/EC) 40 mg PO DAILY mupirocin 2 % ointment 1 applic TOPICAL DAILY albuterol sulfate 90 mcg/actuation HFA aerosol inhaler 2 puff INHALATION Q6H PRN (Reason: Shortness Of Breath) fluticasone propionate 50 mcg/actuation spray,suspension 1 spray INTRANASAL DAILY insulin lispro [Humalog KwikPen Insulin] 100 unit/mL insulin pen See Rx Instructions .ROUTE .COMPLEX Rx Instructions: PER SLIDING SCALE Creon 24,000-76,000 -120,000 unit capsule,delayed release(DR/EC) 2 cap PO TID Anoro Ellipta 62.5-25 mcg/actuation blister with device 2 ea inhalation DAILY aspirin 81 mg Tablet,Chewable 81 mg PO DAILY gabapentin 100 mg capsule 100 mg PO TID clonidine HCl 0.1 mg tablet 0.2 mg PO BID Toufreddie SoloStar U-300 Insulin 300 unit/mL (1.5 mL) insulin pen 135 unit SUBCUT DAILY iron 325 mg (65 mg iron) Tablet 325 mg PO TID Vitamin D3 25 mcg (1,000 unit) Capsule 25 mcg PO DAILY Women's 50 Plus Multivitamin 400 mcg-500 mg calcium-20 mcg Tablet 1 tab PO DAILY biotin 5,000 mcg Tablet, Sublingual 5,000 mcg SUBLINGUAL BID Discontinued torsemide 20 mg tablet 20 mg PO BID Hold Instructions: Resume on 07/17/20. Discharge Orders: Discharge Order (Routine); Ordered 08/28/22 Ordered By: Agnes Hackett Other Ambulatory Orders: DME: Oxygen (Order) Location: None Selected Ordered By: Agnes Hackett Referrals: [employer] [facility] [Other] Deep Angeles DO [Primary Care Provider] - 7-10 days Cinthya Gutierrez FNP [Nurse Practitioner] - 09/04/22 8:30 am Discharge Diet: Cardiac Discharge Activity: Increase activity as tolerated Patient Instructions: Opioid Safety Discharge Attestations Time Spent in Discharge Care*: greater than 30 min Status at Discharge: Cognitive status at discharge: cognitively intact, Behavioral status at discharge: cooperative, Quality Metrics Clinical Quality Measures [ No reported AMI, CVA or VTE this stay] Coding Level of Care Code Acute Code for Chg Fwd Diagnoses MATTIE (acute kidney injury) N17.9 Acute diastolic CHF (congestive heart failure) I50.31 Fever R50.9 HTN (hypertension) I10 Pleural effusion, bilateral J90 Globus sensation R09.89
[2022-08-28 11:08] LABS: Glucose Point of Care 391 mg/dL (70-110)
--- NOTE | 2022-08-28 12:00 | PC.NURSE ---
family is here discharge orders, follow-up appointments, new meds actions, dosing and stopped meds are discussed to pt and pt family. chf stoplight, heart healthy diet, uti process. pt and family verbalizes understanding. discharge packet provided to pt.
[2022-08-28] MEDS: insulin lispro 100 unit/1 mL SUBCUT (12:18)
== END 2022-08-28 12:56 | disposition home health service (06) | DRG 291 ==
LOC: ER 18:20 → CSU 18:36
PROVIDERS: Admitting Provider Internal Medicine; Emergency Provider Family Medicine; PCP Family Medicine; Visit Provider Student in an Organized Health Care Education/Training Program
DX: I11.0 Hypertensive heart disease with heart failure (principal); I50.33 Acute on chronic diastolic (congestive) heart failure; J96.21 Acute and chronic respiratory failure with hypoxia; N39.0 Urinary tract infection, site not specified; N17.9 Acute kidney failure, unspecified; E87.1 Hypo-osmolality and hyponatremia; Z68.42 Body mass index [BMI] 45.0-49.9, adult; I35.0 Nonrheumatic aortic (valve) stenosis; J44.9 Chronic obstructive pulmonary disease, unspecified; G47.33 Obstructive sleep apnea (adult) (pediatric); Z99.81 Dependence on supplemental oxygen; L73.2 Hidradenitis suppurativa; B96.20 Unspecified Escherichia coli [E. coli] as the cause of diseases classified elsewhere; L30.4 Erythema intertrigo; Z79.51 Long term (current) use of inhaled steroids; Z79.4 Long term (current) use of insulin; E11.51 Type 2 diabetes mellitus with diabetic peripheral angiopathy without gangrene; Z79.82 Long term (current) use of aspirin; E04.2 Nontoxic multinodular goiter; K59.00 Constipation, unspecified; E66.01 Morbid (severe) obesity due to excess calories; Z87.891 Personal history of nicotine dependence; Z86.16 Personal history of COVID-19; Z87.01 Personal history of pneumonia (recurrent); Z88.2 Allergy status to sulfonamides; Z99.89 Dependence on other enabling machines and devices
CPT/HCPCS: 36415; 36416; 51702; 71045; 76536; 80048; 80053; 81001; 82962; 83605; 83735; 83880; 84443; 84484; 85025; 85378; 86403; 87040; 87077; 87086; 87186; 87426; 87449; 87635; 87804; 93005; 94640; 94660; 94760; 96372; 96374; 97161; 97530; 99285; J0456; J0696; J1644; J1815; J1940; J3475; J7050; J7613; J7644; P9046; Q0162

== ENCOUNTER → 2022-09-11 15:51 | Outpatient (BNVA) | payer MEDICARE, MEDICAID, SELFPAY | PROVIDERS: PCP Family Medicine; Visit Provider Nurse Practitioner Family | DX: I11.0 Hypertensive heart disease with heart failure (principal); I50.31 Acute diastolic (congestive) heart failure; I05.0 Rheumatic mitral stenosis; Z87.891 Personal history of nicotine dependence; Z79.82 Long term (current) use of aspirin | CPT/HCPCS: 99214 ==

== ENCOUNTER 2022-10-16 11:03 | Inpatient (IN) | payer MEDICARE, MEDICAID, SELFPAY ==
[2022-10-16] VITALS (9 sets, daily range): BP systolic 119–156; BP diastolic 49–93; PULSE 76–98; RESP 12–24; TEMP 36.5; O2SAT 95–100; BMI 49.1
--- NOTE | 2022-10-16 11:11 | ED_ITS ---
HPI - SOB/Dyspnea General: Chief Complaint: Shortness of Breath/Dyspnea Stated Complaint: SOB/ NAUSEA Time Seen by Provider: 10/16/22 11:06 Source: patient and EMS Mode of arrival: EMS Limitations: no limitations History of Present Illness: HPI Narrative: This patient presents from home transported by EMS. History is that she has had what she calls some shortness of breath over the last 2 to 3 days at home. This is despite her using her normal 3 L of oxygen which she is turned up at times to help reduce her symptoms. She states she has no concomitant cough, wheezing, c hest pain, fevers etc. She states she cannot sleep well because she feels her symptoms. She states she has not been exposed to any infection and otherwise is no change in her constitutional symptoms other than what she describes as some left abdominal soreness. She states that symptom is also been present approximately 2 to 3 days concomitant with her subjective shortness of breath feeling. She has an oxygen concentrator as well as oxygen bottles at home and has been on 3 L for an unknown period of time but that has been stable for her. She states she has been taking her medications, has had no vomiting, diarrhea, dysuria, blood in her stools etc. She has had a prior hysterectomy, appe ndectomy, cholecystectomy, low transverse . When questioned she relates that perhaps her subjective shortness of breath feeling may be due to some abdominal discomfort when she takes of breath. She has no history of thromboembolic disease. MD elicited complaint: shortness of breath Pertinent past history: COPD, congestive heart failure and diabetes Relieving factors: oxygen Known history of: COPD, congestive heart failure and diabetes Associated symptoms: Reports abdominal pain; Deny chest pain, extremity pain, fever(s), nausea, palpitations or vomiting Review of Systems Const: Denies: fever(s) or chills ENMT: Denies: throat pain or odynophagia Card: Denies: chest pain, palpitations, irregular heart rhythm or swelling of feet/ankles Resp: Reports: dyspnea; Denies: productive cough, non-productive cough or wheezing GI: Reports: abdominal pain; Denies: nausea, vomiting, diarrhea or melena : Denies: flank pain, difficulty voiding, dysuria or urinary frequency Musc: Reports: joint pain; Denies: neck pain, back pain, extremity pain or extremity swelling Neuro: Denies: headache(s), numbness in extremities or weakness in extremities PFSH ED PFSH: Medical History Acute hypokalemia MATTIE (acute kidney injury) Anemia COPD (chronic obstructive pulmonary disease) Decubitus ulcer Diabetes Heart failure Myelodysplasia (myelodysplastic syndrome) PAD (peripheral artery disease) Pneumonia Pneumonia due to COVID-19 virus Sleep apnea Surgical History Hx of appendectomy Hx of cataract extraction Hx of section Hx of cholecystectomy Hx of hysterectomy Family History Mother CAD (coronary artery disease) Diabetes Daughter Diabetes Lung disease Suicide Son Diabetes Lung disease Denies family history of Clotting disorder Dementia Chronic kidney disease (CKD) Anesthesia complication Bleeding disorder Cancer Stroke Social History Smoking and tobacco status: former smoker (smoked x 8 years) Alcohol intake: never Lives independently: Yes Household members: other Details: Son Physical Exam Narrative: EXAM NARRATIVE: She appears to be comfortable lying in [facility], [place], she interacts appropriately and speaks in complete sentences without dyspnea. Const: COMMON NORMALS: no acute distress, patient oriented x3 and alert GENERAL APPEARANCE: cooperative and comfortable NUTRITIONAL APPEARANCE: overweight HENMT: COMMON NORMALS: normocephalic, Normal nasal mucous membranes and turbinates present, moist oral mucous membranes and oropharynx normal HEAD & SCALP: normocephalic NOSE: Normal nasal mucous membranes and turbinates present Eye: COMMON NORMALS: Equal, round and reactive pupils present, EOMs intact bilaterally and conjunctivae normal CONJUNCTIVA: Yes conjunctivae normal PUPIL: Yes Equal, round and reactive pupils present Neck/C-Spine: COMMON NORMALS: full ROM, no lymphadenopathy and no JVD Chest: COMMONS NORMALS: normal inspection of the chest and normal palpation of entire chest wall Resp: COMMON NORMALS: normal respiratory effort, No retractions, No use of accessory muscles and clear to auscultation bilaterally EFFORT & INSPECTION: Yes able to speak in complete sentences AUSCULTATION: clear to auscultation bilaterally Cardio: COMMON NORMALS: no JVD, regular rate, regular rhythm, No murmurs present (Cardio) and Peripheral pulses 2+ throughout RATE: regular rate RHYTHM: regular rhythm PERIPHERAL PULSES: Peripheral pulses 2+ throughout GI: COMMON NORMALS: Soft to palpation INSPECTION: Yes central obesity and Yes Abdominal panniculus present AUSCULTATION: Yes normoactive bowel sounds PALPATION: Yes Soft to palpation and Yes Tenderness to palpation present (GI) (Left upper abdomen, left paramedian abdomen.) Details: LUQ : COMMON NORMALS: Yes no CVA tenderness BLADDER/KIDNEY EXAM: Yes no CVA tenderness Back/Pelvis: COMMON NORMALS: no CVA tenderness, thoracic and lumbar spine normal to inspection and no thoracic nor lumbar tenderness Extremity: COMMON NORMALS: normal to inspection, full ROM, capillary refill normal, no calf tenderness and no pedal edema Neuro: COMMON NORMALS: patient oriented x3, moves all extremities, no focal motor deficits and no sensory deficits noted SENSORIUM/ORIENTATION: Yes alert Course Reevaluation(s): Reevaluation #1: Patient remained stable. Discussed findings and reasons for continued work-up inpatient. Time: 15:10 Consultations: Consultation #1: D/w Dr Londono who accepts patient. Time: 15:49 Vital Signs: Vital signs: Vital Signs Temperature 97.7 F 10/16/22 11:11 Pulse Rate 77 10/16/22 15:30 Respiratory Rate 12 10/16/22 11:11 Blood Pressure 156/73 10/16/22 15:30 Pulse Oximetry 100 10/16/22 15:30 Oxygen Delivery Me thod Nasal Cannula 10/16/22 14:00 MDM - SOB/Dyspnea Medical Decision Making Patient with subjective shortness of breath for the last 2 days. No associated chest pain fevers chills or other constitutional symptoms other than feeling of air hunger despite using her normal oxygen. She does have a history of congestive heart failure as well as a history of COPD neither of which by history and current clinical picture appear to be major factors in her presentation. Work-up ensued which showed a reassuring D-dimer below the age- related cutoff. She did have an a elevation in troponin and a second troponin also showed a persistent elevation with a delta. Her atrial fibrillation apparently is new we have no history of that and prior EKGs do not reveal any evidence of atrial fibrillation. She has an associated effusion which may be infectious but it also may be related to her atrial fibrillation. Plan will be to admit her to hospital, anticoagulate and work-up her current cardiac status. She does not appear to have any evidence of acute STEMI etc. at this time. Lab Data I reviewed the patient's lab results. 10/16/22 11:45 10/16/22 11:45 Labs/Radiology: Radiology Impressions Abdomen/Pelvis CT 10/16/22 11:25 IMPRESSION: 1. Small RIGHT greater than LEFT pleural effusions with compressive atelectasis in the lung bases. 2. Tiny esophageal hiatal hernia. 3. Mild diffuse fatty infiltration liver. 4. Sigmoid diverticulosis. No evidence of acute diverticulitis. 5. Hysterectomy. Chest X-Ray 10/16/22 11:25 IMPRESSION: Possible bibasal atelectasis in addition to pneumonia especially favored on the right with indefinite irregular density in the right perihilum. Bilateral pleural effusions greater on the right Laboratory Results WBC 7.2 10^3/uL (4.0-10.0) 10/16/22 11:45 RBC 3.26 10^6/uL (4.1-5.3) L 10/16/22 11:45 Hgb 9.7 g/dL (11.5-15.3) L 10/16/22 11:45 Hct 31.8 % (37.0-47.0) L 10/16/22 11:45 MCV 97.5 fl (81-99) 10/16/22 11:45 MCH 29.8 pg (28.0-34.0) 10/16/22 11:45 MCHC 30.5 g/dL (30.0-36.0) 10/16/22 11:45 RDW 13.7 % (12.1-15.1) 10/16/22 11:45 Plt Count 211 10^3/cmm (130-400) 10/16/22 11:45 MPV 9.6 fL (7.4-10.4) 10/16/22 11:45 Neut % (Auto) 79.7 % 10/16/22 11:45 Lymph % (Auto) 12.9 % 10/16/22 11:45 [place] % (Auto) 6.1 % 10/16/22 11:45 Eos % (Auto) 0.8 % 10/16/22 11:45 Baso % (Auto) 0.1 % 10/16/22 11:45 Neut # (Auto) 5.73 10^3/uL (1.8-7.7) 10/16/22 11:45 Lymph # (Auto) 0.9 10^3/uL (0.8-4.8) 10/16/22 11:45 [place] # (Auto) 0.4 10^3/uL (0.2-0.9) 10/16/22 11:45 Eos # (Auto) 0.1 10^3/uL (0.0-0.8) 10/16/22 11:45 Baso # (Auto) 0.0 10^3/uL (0.0-0.1) 10/16/22 11:45 Nucleated RBC % (auto) 0 % 10/16/22 11:45 Nucleated RBCs # 0.0 /100WBC 10/16/22 11:45 D-Dimer <= 0.27 ug/mIFEU (0-0.59) 10/16/22 11:45 Sodium 137 mmol/L (136-145) 10/16/22 11:45 Potassium 3.6 mmol/L (3.5-5.1) 10/16/22 11:45 Chloride 97 mmol/L (98-107) L 10/16/22 11:45 Carbon Dioxide 34 mmol/L (22-29) H 10/16/22 11:45 Anion Gap 9.6 (5-19) 10/16/22 11:45 BUN 13 mg/dL (8-23) 10/16/22 11:45 Creatinine 0.8 mg/dL (0.5-0.9) 10/16/22 11:45 GFR Calculation Not Reportable 10/16/22 11:45 Glucose 108 mg/dL (65-115) 10/16/22 11:45 Calculated Osmolality 285 mOsm/kg (285-295) 10/16/22 11:45 Calcium 10.2 mg/dL (8.5-10.5) 10/16/22 11:45 Total Bilirubin 0.3 mg/dL (0.15-1.2) 10/16/22 11:45 AST 24 U/L (0-32) 10/16/22 11:45 ALT 11 U/L (0-33) 10/16/22 11:45 Alkaline Phosphatase 63 U/L (35-105) 10/16/22 11:45 Troponin T Baseline 108 ng/L (0-10) H* 10/16/22 11:45 Troponin T 120 Minute 147.0 ng/L (0-10) H 10/16/22 13:39 Delta Troponin T 39.0 ABS# (0-10) H* 10/16/22 13:39 NT-Pro-B Natriuret Pep 509 pg/mL (0-450) H 10/16/22 11:28 Total Protein 6.2 g/dL (6.6-8.7) L 10/16/22 11:45 Albumin 3.9 g/dL (3.5-5.2) 10/16/22 11:45 Globulin 2.3 g/dL (1.3-4.6) 10/16/22 11:45 Lipase 14 U/L (13-60) 10/16/22 11:45 Influenza Type A Ag negative (Negative) 10/16/22 15:10 Influenza Type B Ag negative (Negative) 10/16/22 15:10 SARS-CoV-2 Ag (Rapid) negative (Negative) 10/16/22 15:10 EKG Data EKG 1: I personally reviewed and interpreted this EKG as follows: Interpretation: Contemporaneous review of resting EKG reveals a ventricular rate of 80 bpm. SD interval is indeterminate on this tracing. QRS duration and corrected QT intervals are normal. Appears to be suggestive of possible atrial fibrillation with a controlled ventricular response. She has diminished R waves anteriorly suggestive of remote anterior wall TN. Compared with prior tracings the atrial fibrillation appears to be new. EKG 2: I personally reviewed and interpreted this EKG as follows: Interpretation: Repeat EKG this visit reveals persistent rhythm which appears to be atrial fibrillation with a controlled ventricular rate of [address]-T wave changes noted. Discharge Plan Discharge Patient Disposition: Admitted As Inpatient Clinical Impression: Atrial fibrillation, Myocardial injury, Pleural effusion Condition: Stable Coding Level of Care Code ED Head Butler for Yasir Mansfield
--- NOTE | 2022-10-16 11:25 | CT_ITS ---
WS: [id number] CT ABDOMEN PELVIS TECHNIQUE: Contrast-enhanced CT of the abdomen and pelvis with coronal and sagittal reformatted image s. CLINICAL INFORMATION: left upper abd pain COMPARISON: 2018 DLP: 1256.[address] scans at [facility] use at least one of these dose optimization techniques: automated e xposure control; mA and/or kV adjustment per patient size (includes targeted exams where dose is matc hed to clinical indication); or iterative reconstruction. FINDINGS: Prior hysterectomy and appendectomy. Small RIGHT greater than LEFT pleural effusions. Compressive ate lectasis in the lung bases. Tiny esophageal hiatal hernia. Mild diffuse fatty infiltration liver. [place] or cholecystectomy. Normal portal vein and splenic vein. Normal spleen. Adrenal glands are normal. Bi lateral renal atrophy. Small bilateral renal cysts. Pancreatic calcifications due to chronic pancreat itis. Normal caliber abdominal aorta. Aortic calcification. Celiac and SMA are patent. Sigmoid diverticulosis. No evidence of acute diverticulitis. No abdominal or pelvic lymphadenopathy. Tiny fat-containing umbilical hernia. Mild diffuse bladder wall thickening. Pelvic phleboliths. Disc space narrowing worse L5-S1. CT/CT abdomen pelvis w con* [id number] IMPRESSION: 1. Small RIGHT greater than LEFT pleural effusions with compressive atelectasi s in the lung bases. 2. Tiny esophageal hiatal hernia. 3. Mild diffuse fatty infiltration liver. 4. Sigmoid diverticulosis. No evidence of acute diverticulitis. 5. Hysterectomy.
--- NOTE | 2022-10-16 11:25 | XR_ITS ---
WS: [id number] EXAMINATION: XR chest 1V portable [id number] REASON FOR EXAM: sob COMPARISON: None available. ORDER DATE: 10/16/2022 11:35 AM TECHNIQUE: A single, portable frontal chest x-ray was obtained. X-RAY FINDINGS: There is patchy opacity involving the right lung base up to the hilar level with similar right perihi lar change. The opacity is greatest in the lower base which is probably due to pleural effusion There is retrocardiac medial left basal opacity in addition to blunting of the costophrenic angle indicati ng small effusion. There is atherosclerotic aortic change and probable cardiomegaly however this is a n AP portable view. No evidence for pulmonary edema. Soft tissue and osseous structures are unremarkable. No tubes or lines are present. XR/XR chest 1V portable [id number] IMPRESSION: Possible bibasal atelectasis in addition to pneumonia especially favored on th e right with indefinite irregular density in the right perihilum. Bilateral ple ural effusions greater on the right
[2022-10-16 12:02] LABS: Basophils % 0.1 %; Eosinophils # 0.1 10^3/uL (0.0-0.8); Eosinophils % 0.8 %; Hematocrit 31.8 % (37.0-47.0); Hemoglobin 9.7 g/dL (11.5-15.3); Lymphocytes # 0.9 10^3/uL (0.8-4.8); Lymphocytes % 12.9 %; Mean Corpuscular HGB Conc 30.5 g/dL (30.0-36.0); Mean Corpuscular Hemoglobin 29.8 pg (28.0-34.0); Mean Corpuscular Volume 97.5 fl (81-99); Mean Platelet Volume 9.6 fL (7.4-10.4); Monocytes # 0.4 10^3/uL (0.2-0.9); Monocytes % 6.1 %; Neutrophils # 5.73 10^3/uL (1.8-7.7); Neutrophils % 79.7 %; Nucleated Red Blood Cells % 0 %; Platelet Count 211 10^3/cmm (130-400); Red Blood Count 3.26 10^6/uL (4.1-5.3); Red Cell Distribution Width 13.7 % (12.1-15.1); White Blood Count 7.2 10^3/uL (4.0-10.0)
[2022-10-16 12:16] LABS: D Dimer <= 0.27 ug/mIFEU (0-0.59)
[2022-10-16 12:21] LABS: Alanine Aminotransferase 11 U/L (0-33); Albumin Level 3.9 g/dL (3.5-5.2); Alkaline Phosphatase 63 U/L (35-105); Aspartate Amino Transferase 24 U/L (0-32); Blood Urea Nitrogen 13 mg/dL (8-23); Calcium 10.2 mg/dL (8.5-10.5); Carbon Dioxide 34 mmol/L (22-29); Chloride 97 mmol/L (98-107); Globulin 2.3 g/dL (1.3-4.6); Glucose 108 mg/dL (65-115); Lipase 14 U/L (13-60); Osmolality Calculated 285 mOsm/kg (285-295); Sodium 137 mmol/L (136-145); Total Bilirubin 0.3 mg/dL (0.15-1.2); Total Protein 6.2 g/dL (6.6-8.7)
[2022-10-16 12:23] LABS: Anion Gap 9.6 (5-19); Potassium 3.6 mmol/L (3.5-5.1)
[2022-10-16 12:24] LABS: Troponin(5th) Baseline 108 ng/L (0-10)
--- NOTE | 2022-10-16 12:26 | ECG_ITS ---
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 Measurements Intervals [place] Rate: 80 P: 0 NJ: 0 QRS: 134 QRSD: 93 T: 137 QT: 386 QTc: 448 Interpretive Statements ATRIAL FIBRILLATION LOW QRS VOLTAGE IN EXTREMITY LEADS [QRS DEFLECTION < 0.5 mV IN LIMB LEADS] ANTEROLATERAL MYOCARDIAL INFARCTION , OF INDETERMINATE AGE [40+ ms Q WAVE IN I/aVL/V3-V6] Compared to ECG 08/22/2022 06:07:16 Myocardial infarct finding now present Sinus tachycardia no longer present Electronically Signed On 10-16-2022 16:20:54 CDT by Livan Edwards M.D. [email or web address]/store/[id number]
[2022-10-16] MEDS: iohexol 350 mg/mL 500 mL Btl (per mL) IV (13:06)
[2022-10-16 13:51] LABS: NT Pro B Type Natriuretic Pept 509 pg/mL (0-450)
[2022-10-16 15:48] LABS: Influenza A by IFA negative (Negative); Influenza B by IFA negative (Negative)
[2022-10-16 15:49] LABS: SARS Covid-2 Antigen negative (Negative)
[2022-10-16] MEDS: enoxaparin 120 mg/0.8 mL Syringe 110 MG SUBCUT (16:57)
--- NOTE | 2022-10-16 17:25 | PM.HP ---
Providers/Chief Complaint Admitting Physician: Jhonatan Londono MD Primary Care Provider: Deep Angeles DO Chief Complaint: SOB/ NAUSEA History of Present Illness Beth Winkler is a 82 year old female with PMH of COPD on 2 Ls oxygen at home, DM, PVD, HFpEF,?atrial fibrillation, was brought in today with chief complaint of acute onset of left lower quadrant abdominal pain, associated with some nausea no vomiting, she was also complaining of worsening shortness of breath, orthopnea going on for the last few days, she denied any fever chills cough, chest pain, vomiting. CT abdomen and pelvis showed: No acute intra abdominal or pelvic pathology X-ray chest: patchy opacity involving the right lung base up to the hilar level with similar right perihilar change. The opacity is greatest in the lower base which is probably due to pleural effusion There is retrocardiac medial left basal opacity in addition to blunting of the costophrenic angle indicating small effusion. EKG atrial fibrillation Pertinent labs: WBC 7.2, H&H 9.7 / 31.8 , PLT : 211 , serum sodium 137 serum potassium 3.6, BUN 13, serum creatinine 0.8, Troponin trend: 371-472-9-hour troponin is pending, proBNP 509 Influenza and rapid COVID-negative. Patient received a dose of therapeutic anticoagulation with Lovenox in ER. Review of Systems General: Reports: 10 or more systems reviewed and unremarkable except in HPI and below Const: Denies: fever(s), chills, body aches, change in appetite or diaphoresis Card: Reports: dyspnea on exertion and orthopnea; Denies: palpitations, edema, swelling of feet/ankles or leg pain with exertion Resp: Reports: dyspnea; Denies: productive cough, wheezing or pain on inspiration GI: Denies: abdominal pain, nausea, vomiting, diarrhea or constipation : Denies: flank pain Musc: Denies: back pain, extremity pain or extremity swelling Neuro: Denies: headache(s), difficulty walking or confusion Medications/Allergies Home Medications Medication Instructions Recorded Confirmed Last Taken Type albuterol sulfate 90 mcg/actuation 2 puff inhalation Q6H PRN 06/29/20 10/16/22 08/20/22 History aerosol inhaler Shortness Of Breath aspirin 81 mg chewable tablet 81 mg PO DAILY 06/29/20 10/16/22 10/15/22 History atorvastatin 20 mg tablet 20 mg PO BEDTIME 06/29/20 10/16/22 10/15/22 History cilostazol 100 mg tablet 100 mg PO BID 06/29/20 10/16/22 10/15/22 History fluticasone propionate 50 1 spray intranasal DAILY 06/29/20 10/16/22 10/15/22 History mcg/actuation nasal spray,suspension insulin lispro 100 unit/mL See Rx Instructions .Route .COMPLEX 06/29/20 10/16/22 08/20/22 History subcutaneous pen (Humalog KwikPen (U-100) Insulin) latanoprost 0.005 % eye drops 1 drp ophthalmic (eye) BEDTIME 06/29/20 10/16/22 10/15/22 History plgyyr-uilfkngb-yssvnhq 2 cap PO TID 06/29/20 10/16/22 10/15/22 History 24,000-76,000-120,000 unit capsule,delayed rel (Creon) mupirocin 2 % topical ointment 1 applic topical DAILY 06/29/20 10/16/22 Unknown History pantoprazole 40 mg tablet,delayed 40 mg PO DAILY 06/29/20 10/16/22 10/15/22 History release umeclidinium 62.5 mcg-vilanterol 2 ea inhalation DAILY 06/29/20 10/16/22 08/20/22 History 25 mcg/actuation powdr for inhalation (Anoro Ellipta) dorzolamide 2 % eye drops 1 drp ophthalmic (eye) BID 07/27/20 10/16/22 10/15/22 History ondansetron HCl 4 mg tablet 4 mg PO Q6H PRN nausea and vomiting 07/27/20 10/16/22 08/20/22 History clindamycin HCl 300 mg capsule 300 mg PO TID 11/16/20 10/16/22 10/15/22 History gabapentin 100 mg capsule 100 mg PO TID 11/16/20 10/16/22 10/15/22 History clonidine HCl 0.1 mg tablet 0.2 mg PO BID 11/15/21 10/16/22 10/15/22 History biotin 5,000 mcg sublingual tablet 5,000 mcg sublingual BID 08/20/22 10/16/22 10/15/22 History cholecalciferol (vitamin D3) 25 25 mcg PO DAILY 08/20/22 10/16/22 10/15/22 History mcg (1,000 unit) capsule (Vitamin D3) ferrous sulfate 325 mg (65 mg 325 mg PO TID 08/20/22 10/16/22 10/15/22 History iron) tablet (iron) insulin glargine U-300 conc 300 130 unit SUBCUT DAILY 08/20/22 10/16/22 10/15/22 History unit/mL (1.5 mL) subcutaneous pen (Toujeo SoloStar U-300 Insulin) ooauffrk-fxe-bzznj ac 400 1 tab PO DAILY 08/20/22 10/16/22 10/15/22 History mcg-calcium carb 500 mg-vit K1 20 mcg tablet (Women's 50 Plus Multivitamin) clotrimazole 1 % topical cream 1 applic topical BID 4 weeks #30 08/28/22 10/16/22 10/15/22 Rx grams furosemide 40 mg tablet 60 mg PO DAILY@0800 #90 tabs 09/11/22 10/16/22 10/15/22 Rx hydralazine 25 mg tablet 25 mg PO TID #90 tabs 09/11/22 10/16/22 10/15/22 Rx adalimumab 40 mg/0.4 mL 40 mg SUBCUT Q7D 10/16/22 10/16/22 Unknown History subcutaneous pen kit (Humira(CF) Pen) albuterol sulfate 2.5 mg/3 mL 2.5 mg inhalation QID PRN 10/16/22 10/16/22 Unknown History (0.083 %) solution for nebulization Shortness Of Breath ipratropium bromide 0.02 % 2.5 ml inhalation QID PRN 10/16/22 10/16/22 Unknown History solution for inhalation Shortness Of Breath Allergies Allergy/AdvReac Type Severity Reaction Status Date / Time doxycycline Allergy Unknown Verified 09/11/22 15:59 Sulfa (Sulfonamide Allergy ALGY-Rash Verified 09/11/22 15:59 Antibiotics) PFSH Acute PFSH: Medical History Acute hypokalemia MATTIE (acute kidney injury) Anemia COPD (chronic obstructive pulmonary disease) Decubitus ulcer Diabetes Heart failure Myelodysplasia (myelodysplastic syndrome) PAD (peripheral artery disease) Pneumonia Pneumonia due to COVID-19 virus Sleep apnea Surgical History Hx of appendectomy Hx of cataract extraction Hx of section Hx of cholecystectomy Hx of hysterectomy Family History Mother CAD (coronary artery disease) Diabetes Daughter Diabetes Lung disease Suicide Son Diabetes Lung disease Denies family history of Clotting disorder Dementia Chronic kidney disease (CKD) Anesthesia complication Bleeding disorder Cancer Stroke Social History Smoking and tobacco status: former smoker (smoked x 8 years) Alcohol intake: never Lives independently: Yes Household members: other Details: Son Vitals/I&O/Wt Last Vital Signs Temp 97.7 F 10/16/22 11:11 Pulse 77 10/16/22 15:30 Resp 12 10/16/22 11:11 BP 156/73 10/16/22 15:30 Pulse Ox 100 10/16/22 15:30 O2 Del Method Nasal Cannula 10/16/22 14:00 Weight last 48 hrs Weight 110.223 kg Physical Exam Const: COMMON NORMALS: patient oriented x3 HENMT: COMMON NORMALS: normocephalic and atraumatic HEAD & SCALP: normocephalic and atraumatic Resp: COMMON NORMALS: clear to auscultation bilaterally AUSCULTATION: clear to auscultation bilaterally OTHER: Diminished air entry bilaterally Cardio: COMMON NORMALS: No rub (Cardio) and Peripheral pulses 2+ throughout PERIPHERAL PULSES: Peripheral pulses 2+ throughout OTHER: Irregularly irregular rhythm S1-S2 variable intensity GI: COMMON NORMALS: Normal to inspection, nondistended, normoactive bowel sounds present, Soft to palpation, non-tender, No hepatosplenomegaly present and no masses AUSCULTATION: Yes normoactive bowel sounds PALPATION: Yes Soft to palpation and Yes No hepatosplenomegaly present RECTAL EXAM: deferred Extremity: COMMON NORMALS: no clubbing, cyanosis or edema and no pedal edema Neuro: COMMON NORMALS: patient oriented x3 Data 10/16/22 11:45 10/16/22 11:45 A&P Assessment and plan (1) Atrial fibrillation: (2) NSTEMI (non-ST elevated myocardial infarction): (3) Pleural effusion: (4) Mitral stenosis: (5) HTN (hypertension): (6) Acute diastolic CHF (congestive heart failure): (7) Type 2 diabetes mellitus: Qualifiers: Diabetes mellitus complication status: with hyperglycemia Diabetes mellitus longwall foreman insulin use: with longwall foreman use Qualified Code(s): E11.65 - Type 2 diabetes mellitus with hyperglycemia; 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 Assessment: NSTEMI: EKG atrial fibrillation. Troponin trend: 108-147 -6H troponin is pending. Follow 2D echo Currently on ACS protocol (on therapeutic anticoagulation with Lovenox, statin, aspirin) Continue telemetry monitoring Possible cardiology consult Decompensated heart failure with preserved ejection fraction: Patient has bilateral pleural effusion, worsening shortness of breath, orthopnea Continue Lasix 60 IV 3 times daily Monitor intake and output charting Monitor daily weight Telemetry monitoring Possible underlying pneumonia: The clinical suspicion is low. X-ray chest: patchy opacity involving the right lung base up to the hilar level with similar right perihilar change. The opacity is greatest in the lower base which is probably due to pleural effusion There is retrocardiac medial left basal opacity in addition to blunting of the costophrenic angle indicating small effusion. Follow sputum Gram stain and culture. Urine Legionella antigen Bacterial antigen panel Influenza and rapid COVID is negative Empirically on broad-spectrum antibiotic Vanco and Zosyn DuoNebs Supplemental oxygen as needed History of COPD on 2 L home oxygen: Plan as above History of diabetes: Continue sliding scale insulin, monitor fingerstick glucose History of atrial fibrillation: Currently rate is controlled On therapeutic anticoagulation with Lovenox. We will switch to p.o. anticoagulation on discharge History of hypertension: Continue clonidine and hydralazine Left lower quadrant abdominal pain: CT abdomen and pelvis showed: No acute intra abdominal or pelvic pathology. Monitor for now CODE STATUS:AND DVT prophylaxis not needed on therapeutic anticoagulation with Lovenox Attestations Medical Necessity Statement*: Patient is in hospital for the management of NSTEMI.Anticipated length of stay greater 2 midnights. Coding Level of Care Code 21962 Diagnoses Atrial fibrillation I48.91 NSTEMI (non-ST elevated myocardial infarction) I21.4 Pleural effusion J90 Mitral stenosis I05.0 HTN (hypertension) I10 Acute diastolic CHF (congestive heart failure) I50.31 Type 2 diabetes mellitus E11.65; Z79.4 Diabetes mellitus complication status: with hyperglycemia Diabetes mellitus skilled nursing insulin use: with skilled nursing use Pneumonia J18.9
--- NOTE | 2022-10-16 17:27 | USCV_ITS ---
Winkler Beth Age: 82 Gender: F : 1940 Exam Date: 10/16/2022 19:47 Ordering Phys: Jhonatan Londono MD Technologist: LIBERTY [place] [facility] [place]ication: shortness of breath, O2 dependent at 3L, hx COPD, hx CHF, DM. No history of cardiac intervention per patient. BP: 156 / 73 HR: 71 Rhythm: Sinus Technical Quality: Adequate MEASUREMENTS (Male / Female) Normal Values 2D ECHO LV Diastolic Diameter PLAX 4.3 cm 4.2 - 5.9 / 3.9 - 5.3 cm LV Systolic Diameter PLAX 2.7 cm IVS Diastolic Thickness 1.5 cm 0.6 - 1.0 / 0.6 - 0.9 cm IVS Systolic Thickness 2.0 cm LVPW Diastolic Thickness 1.5 cm 0.6 - 1.0 / 0.6 - 0.9 cm LVPW Systolic Thickness 1.8 cm LVOT Diameter 1.7 cm LV Ejection Fraction 2D Teich 66.1 % LV Ejection Fraction MOD 2C 65.4 % LV Ejection Fraction 2C AL 66.1 % LA Diameter 4.3 cm LA Width 4.6 cm LA Height 6.0 cm RA Width 2.9 cm RA Height 4.5 cm Aorta at Sinotubular Diameter 2.1 cm IVC Diameter 2.5 cm M-MODE Aortic Annulus Diameter 3.0 cm LA Ao Ratio MM 1.6 DOPPLER AV Peak Velocity 180.0 cm/s LVOT Peak Velocity 108.0 cm/s AV Area Cont Eq vti 1.5 cm squared AV Area Cont Eq pk 1.4 cm squared MV Peak Velocity 295.0 cm/s MV Area PHT 2.1 cm squared Mitral E to A Ratio 1.8 MV E' Velocity 165.0 cm/s Mitral E to MV E' Ratio 28.9 Mitral E to LV E' Lateral Ratio 25.0 Mitral E to LV E' Septal Ratio 34.1 TR Peak Velocity 379.0 cm/s TR Peak Gradient 57.5 mmHg TV Peak E Velocity 50.0 cm/s Right Atrial Pressure 15.0 mmHg Pulmonary Artery Systolic Pressu 72.5 mmHg PV Peak Velocity 130.0 cm/s RV Acceleration Time 0.1 s RV Ejection Time 0.4 s RV AcT/ET 0.1 FINDINGS Left Ventricle Normal left ventricular size and systolic function, EF 64 %. No regional wall motion abnormalities. Right Ventricle Normal right ventricular size and systolic function. Right Atrium The right atrium is normal in size. Left Atrium Mildly increased left atrial size. Mitral Valve Thickened mitral valve. Moderate mitral annular calcification. Mild mitral valve stenosis. Mitral valve mean gradient is 12.8 mmHg. The mitral valve area by pressure half-time is 2.14 cm squared. Peak velocity across the mitral valve was 2.95 m/s Aortic Valve Aortic valve sclerosis. Trace aortic valve regurgitation. Tricuspid Valve Mild tricuspid valve regurgitation. Estimated pulmonary artery peak systolic pressure of 73 mmHg Pulmonic Valve Mild pulmonary valve regurgitation. Pericardium No pericardial effusion. Aorta Normal ascending aorta dimension. IVC Dilated IVC with decreased respiratory variation. CONCLUSIONS Normal left ventricular size and systolic function, EF 64 %. No regional wall motion abnormalities. Mild mitral valve stenosis. Mitral valve mean gradient is 12.8 mmHg. The mitral valve area by pressure half-time is 2.14 cm squared. Peak velocity across the mitral valve was 2.95 m/s. Moderate mitral annular calcification. Severe pulmonary hypertension with an estimated pulmonary artery peak systolic pressure 73 mmHg Mild tricuspid and pulmonic valve regurgitation. Mildly increased left atrial size. Possibly normal right atrial size Aortic valve sclerosis. Trace aortic valve regurgitation. No significant pericardial effusion Compared to the study from 02/25/2022, the mitral stenosis appears to be less severe at this time. The PA pressure patient has increased. Because of the differences in the technical quality, the reliability of these changes is questionable Dr Venu Mccord MD [facility] (Electronically Signed) Final Date: 17 October 2022 12:51 S
--- NOTE | 2022-10-16 18:18 | ECG_ITS ---
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 Measurements Intervals [place] Rate: 74 P: 25 NJ: 139 QRS: -8 QRSD: 98 T: 67 QT: 407 QTc: 454 Interpretive Statements SINUS RHYTHM WITH OCCASIONAL SUPRAVENTRICULAR PREMATURE COMPLEXES LOW QRS VOLTAGE IN EXTREMITY LEADS [QRS DEFLECTION < 0.5 mV IN LIMB LEADS] POSSIBLE ANTERIOR MYOCARDIAL INFARCTION , OF INDETERMINATE AGE [30 ms Q WAVE IN V3/V4, OR R < 0.2 mV IN V4] Compared to ECG 10/16/2022 12:26:50 Atrial fibrillation no longer present Myocardial infarct finding still present Electronically Signed On 10-16-2022 21:08:06 CDT by Livan Edwards M.D. [id number]
[2022-10-16] MEDS: FUROsemide 10 mg/mL SDV 10mL 60 MG IVP ×2 (18:28→20:51)
[2022-10-16 19:08] LABS: Troponin 5 6HR 162.9 ng/L (0-10); Troponin 5 6HR Delta 54.9 ng/L (0-12)
[2022-10-16] MEDS: piperacillin-tazobactam 3.375 GM in sodium chloride 0.9% (plus) 50 ML IV (19:23)
[2022-10-16] MEDS: lipase-protease-amylase Capsule 2 EACH PO (19:25)
[2022-10-16 20:08] LABS: Add Urine Microscopic? NO; Charge for UA Resulting for Rev
[2022-10-16] MEDS: vancomycin 1,250 MG/250 ML PIGGYBACK 200 MG IV (20:13)
[2022-10-16] MEDS: clotrimazole 1% cream 30 gm 1 APPLIC TOPICAL (20:14)
[2022-10-16] MEDS: ipratropium-albuterol 3 mL Neb INHALATION (20:23)
[2022-10-16 20:37] LABS: Bilirubin Urine Neg (Negative); Blood Urine Neg (Negative); Glucose Urine UA Norm (Normal); Ketones Urine Negative (Negative); Leukocyte Esterase Urine Negative (Negative); Nitrate Urine Negative (Negative); Protein Urine Neg (Negative); Urine Appearance Clear (CLEAR); Urine Color Light yellow (Yellow); Urobilinogen Urine Norm (Negative); pH Urine 6.5 (5-7)
[2022-10-16 20:42] LABS: Glucose Point of Care 134 mg/dL (70-110)
[2022-10-16] MEDS: gabapentin 100 mg Capsule PO (20:52)
[2022-10-16] MEDS: cloNIDine 0.1 mg Tablet 0.2 MG PO (20:52)
[2022-10-16] MEDS: hyDRALAzine 25 mg Tablet PO (20:52)
[2022-10-16] MEDS: dorzolamide 2% Op Soln 10 mL Btl 1 DROP EYE-BOTH (20:52)
[2022-10-16] MEDS: atorvastatin 40 mg Tablet 20 MG PO (20:52)
[2022-10-16] MEDS: ferrous sulfate EC 325 mg Tablet PO (20:52)
[2022-10-16] MEDS: cilostazol 100 mg Tablet PO (20:52)
[2022-10-17] VITALS (17 sets, daily range): BP systolic 142–183; BP diastolic 52–69; PULSE 72–112; RESP 16–27; TEMP 36.6–37; O2SAT 94–99
[2022-10-17] MEDS: ipratropium-albuterol 3 mL Neb INHALATION ×4 (02:04→21:01)
[2022-10-17] MEDS: piperacillin-tazobactam 3.375 GM in sodium chloride 0.9% (plus) 50 ML IV ×3 (02:51→17:37)
[2022-10-17] MEDS: enoxaparin 120 mg/0.8 mL Syringe 110 MG SUBCUT (06:07)
[2022-10-17 06:23] LABS: Glucose Point of Care 226 mg/dL (70-110)
[2022-10-17 06:58] LABS: Basophils % 0.4 %; Eosinophils # 0.1 10^3/uL (0.0-0.8); Eosinophils % 1.6 %; Hematocrit 33.2 % (37.0-47.0); Lymphocytes # 0.7 10^3/uL (0.8-4.8); Mean Corpuscular HGB Conc 30.1 g/dL (30.0-36.0); Mean Corpuscular Hemoglobin 30.8 pg (28.0-34.0); Mean Corpuscular Volume 102.2 fl (81-99); Mean Platelet Volume 10.3 fL (7.4-10.4); Monocytes # 0.4 10^3/uL (0.2-0.9); Monocytes % 6.9 %; Neutrophils # 4.28 10^3/uL (1.8-7.7); Neutrophils % 77.6 %; Nucleated Red Blood Cells % 0 %; Platelet Count 106 10^3/cmm (130-400); Red Blood Count 3.25 10^6/uL (4.1-5.3); Red Cell Distribution Width 13.9 % (12.1-15.1); White Blood Count 5.5 10^3/uL (4.0-10.0)
[2022-10-17 07:13] LABS: Alanine Aminotransferase 12 U/L (0-33); Albumin Level 3.6 g/dL (3.5-5.2); Alkaline Phosphatase 64 U/L (35-105); Blood Urea Nitrogen 13 mg/dL (8-23); Calcium 10.2 mg/dL (8.5-10.5); Carbon Dioxide 29 mmol/L (22-29); Chloride 98 mmol/L (98-107); Globulin 2.9 g/dL (1.3-4.6); Glucose 206 mg/dL (65-115); Magnesium 1.7 mg/dL (1.7-2.3); Osmolality Calculated 292 mOsm/kg (285-295); Sodium 138 mmol/L (136-145); Total Bilirubin 0.3 mg/dL (0.15-1.2); Total Protein 6.5 g/dL (6.6-8.7)
[2022-10-17 07:14] LABS: Aspartate Amino Transferase 29 U/L (0-32)
[2022-10-17 07:19] LABS: Slide Review Slide Review Perform
[2022-10-17 07:20] LABS: Procalcitonin 0.03 ng/mL (0-0.5)
[2022-10-17] MEDS: insulin lispro 100 unit/1 mL SUBCUT ×4 (08:02→20:53)
[2022-10-17] MEDS: cholecalciferol (vitamin D3) 1,000 unit Tablet 1000 UNIT PO (08:27)
[2022-10-17] MEDS: cloNIDine 0.1 mg Tablet 0.2 MG PO ×2 (08:27→20:07)
[2022-10-17] MEDS: hyDRALAzine 25 mg Tablet PO ×3 (08:27→20:06)
[2022-10-17] MEDS: cilostazol 100 mg Tablet PO ×2 (08:27→20:06)
[2022-10-17] MEDS: FUROsemide 10 mg/mL SDV 10mL 60 MG IVP ×2 (08:28→17:37)
[2022-10-17] MEDS: gabapentin 100 mg Capsule PO ×3 (08:28→20:06)
[2022-10-17] MEDS: aspirin 81 mg Chew Tablet PO (08:28)
[2022-10-17] MEDS: pantoprazole DR 40 mg Tablet PO (08:28)
[2022-10-17] MEDS: lipase-protease-amylase Capsule 2 EACH PO ×3 (08:28→17:45)
[2022-10-17] MEDS: ferrous sulfate EC 325 mg Tablet PO ×3 (08:28→20:06)
[2022-10-17] MEDS: dorzolamide 2% Op Soln 10 mL Btl 1 DROP EYE-BOTH ×2 (08:31→20:53)
[2022-10-17] MEDS: acetaminophen 325 mg Tablet 650 MG PO (09:02)
--- NOTE | 2022-10-17 11:05 | PC.CHAP ---
Pastoral Care Encounter/Spiritual Assessment Type of Contact [] Declined sheeter operator visit [] Patient/Family/Request visit [] Outpatient visit [] Follow-up visit [] Physician referral [] Code/Alert [x] Routine visit [] Staff referral [] Actively dying [] Patient sleeping [] Family support [] [] Out of room [] Palliative care [] [x] Receiving care in room [] Pre-surgical visit [] Trauma [] Long length of stay [] ICU visit [] Other: Relational/Emotional Strength [x] Patient feels connected with others/family/visitors/staff [] Distress [] Loneliness/isolation [] Abandonment Spirituality of Patient [x] Person of Lesa [] Attends Jain of their Lesa [x] Believes in Prayer [] Reads Bible or Alevism materials [] There are Spiritual issues to be addressed Global Implementation Manager Interventions [x] Prayer [x] Active listening [x] Non-anxious presence [x] Spiritual/emotional support [] Crisis/trauma care [x] Spiritual counseling [] Bereavement support [] Provided bereavement packet [] Provided Bible/devotional materials [] Provided toy/stuffed animal, coloring book to patient or family member [] Provided Communion [] Anointing/[place] [] Salvation [x] Completed spiritual assessment [] Other: Impact on Illness or Injury [] Angry [x] Fearful [] Anxious [] Often cries [] Exhaustion [x] Unable to work [] Unable to attend latter day [] Unable to walk/stand [] Unable to read [] Unable to drive [] Unable to eat/drink [] Unable to sleep [] Unable to be with family [] Patient intubated [] Other: Summary senior negative a bout her health checking with doctor to see what needs to be done or go home Time spent with patient 10 mins
[2022-10-17 11:23] LABS: Glucose Point of Care 377 mg/dL (70-110)
[2022-10-17 16:39] LABS: Glucose Point of Care 448 mg/dL (70-110)
--- NOTE | 2022-10-17 17:02 | PM.PN ---
Subjective Subjective: Patient was seen and examined this morning, she was still complaining of shortness of breath, as well as occasional intermittent left lower quadrant abdominal pain. So far she had good urine output with Lasix. Medications: Medication Review Details: Generic Name Dose Route Start Last Admin Trade Name Bernardoq PRN Reason Stop Dose Admin Acetaminophen 650 mg 10/16/22 17:12 10/17/22 09:02 Acetaminophen 32 5 Mg Tablet PO 650 mg Q6H PRN Administration Mild/Mod Pain Or Temp >/= 101 Albuterol/Ipratrop ium 3 ml 10/16/22 20:00 10/17/22 13:19 Ipratropium-Albu terol 3 Ml Neb INHALATION 3 ml Q6H.RESP DELVIN Administration Lipase/Protease/Am ylase 2 each 10/16/22 18:00 10/17/22 12:57 Lipase-Protease- Amylase Capsule PO 2 each TIDWM DELVIN Administration Aspirin 81 mg 10/17/22 09:00 10/17/22 08:28 Aspirin 81 Mg Ch ew Tablet PO 81 mg DAILY DELVIN Administration Atorvastatin Calci um 20 mg 10/16/22 21:00 10/16/22 20:52 Atorvastatin 40 Mg Tablet PO 20 mg BEDTIME DELVIN Administration Cilostazol 100 mg 10/16/22 21:00 10/17/22 08:27 Cilostazol 100 M g Tablet PO 100 mg BID@0900,2100 DELVIN Administration Clonidine HCl 0.2 mg 10/16/22 21:00 10/17/22 08:27 Clonidine 0.1 Mg Tablet PO 0.2 mg BID@0900,2100 DELVIN Administration Clotrimazole 1 applic 10/16/22 18:00 10/17/22 16:59 Clotrimazole 1% Cream 30 Gm TOPICAL Not Given BID [facility] Dorzolamide HCl 1 drop 10/16/22 21:00 10/17/22 08:31 Dorzolamide 2% O p Soln 10 Ml Btl EYE-BOTH 1 drop BID@0900,2100 DELVIN Administration Enoxaparin Sodium 110 mg 10/17/22 06:00 10/17/22 16:59 Enoxaparin 120 M g/0.8 Ml Syringe SUBCUT Not Given Q12H DELVIN Ferrous Sulfate 325 mg 10/16/22 21:00 10/17/22 15:37 Ferrous Sulfate Ec 325 Mg Tablet PO 325 mg TID DELVIN Administration Furosemide 60 mg 10/17/22 09:00 10/17/22 08:28 Furosemide 10 Mg /Ml Sdv 10ml IVP 60 mg BID DELVIN Administration Gabapentin 100 mg 10/16/22 21:00 10/17/22 15:37 Gabapentin 100 M g Capsule PO 100 mg TID DELVIN Administration Hydralazine HCl 25 mg 10/16/22 21:00 10/17/22 15:37 Hydralazine 25 M g Tablet PO 25 mg TID DELVIN Administration Piperacillin Sod/T azobactam 50 mls @ 12.5 mls /hr 10/16/22 18:00 10/17/22 14:52 Sod 3.375 gm/ So dium Chloride IV Infused Q8H DELVIN Infusion Protocol Vancomycin/PEG/NAD A/Lysine/Water 1,250 mg in 250 m ls @ 200 mls/hr 10/16/22 18:30 10/16/22 21:18 Vancocin IV Infused Q24H DELVIN Infusion Insulin Human Lisp ro 0 unit 10/16/22 18:00 10/17/22 12:56 Insulin Lispro 1 00 Unit/1 Ml SUBCUT 12 unit WM&BEDTIME DELVIN Administration Protocol Pantoprazole Sodiu m 40 mg 10/17/22 09:00 10/17/22 08:[address] 40 Mg Tablet PO 40 mg DAILY DELVIN Administration Vitamin D 1,000 unit 10/17/22 09:00 10/17/22 08:27 Cholecalciferol (Vitamin D3) 1,000 Unit Tablet PO 1,000 unit DAILY DELVIN Administration Vitals/I&O/Wt Last Vital Signs Temp 97.8 F 10/17/22 15:45 Pulse 97 10/17/22 15:45 Resp 25 H 10/17/22 15:45 BP 142/65 10/17/22 15:45 Pulse Ox 99 10/17/22 15:45 O2 Del Method Nasal Cannula 10/17/22 15:45 O2 Flow Rate 3 10/17/22 13:19 10/17/22 10/17/22 10/17/22 06:59 14:59 22:59 Intake Total 100 / 350 1190 / 1190 Output Total 1400 / 1400 800 / 800 Balance -1300 / -1050 390 / 390 Weight last 48 hrs Weight 109.316 kg Weight 110.223 kg Weight 110.223 kg Physical Exam Const: COMMON NORMALS: patient oriented x3 HENMT: COMMON NORMALS: normocephalic and atraumatic HEAD & SCALP: normocephalic and atraumatic Resp: OTHER: Diminished air entry bilaterally, bilateral basal crackles present Cardio: COMMON NORMALS: No rub (Cardio) and Peripheral pulses 2+ throughout PERIPHERAL PULSES: Peripheral pulses 2+ throughout OTHER: Irregularly irregular rhythm S1-S2 variable intensity GI: COMMON NORMALS: Normal to inspection, nondistended, normoactive bowel sounds present, Soft to palpation, non-tender, No hepatosplenomegaly present and no masses AUSCULTATION: Yes normoactive bowel sounds PALPATION: Yes Soft to palpation and Yes No hepatosplenomegaly present RECTAL EXAM: deferred Extremity: COMMON NORMALS: no clubbing, cyanosis or edema and no pedal edema Neuro: COMMON NORMALS: patient oriented x3 Data 10/17/22 06:47 10/17/22 06:47 Micro: Microbiology 10/16/22 18:28 Blood Culture - Preliminary Blood SPECIMEN COLLECTED 10/16/22 18:09 Blood Culture - Preliminary Blood SPECIMEN COLLECTED A&P Assessment and plan (1) Atrial fibrillation: (2) NSTEMI (non-ST elevated myocardial infarction): (3) Pleural effusion: (4) Mitral stenosis: (5) HTN (hypertension): (6) Acute diastolic CHF (congestive heart failure): (7) Type 2 diabetes mellitus: Qualifiers: Diabetes mellitus complication status: with hyperglycemia Diabetes mellitus skilled nursing insulin use: with skilled nursing use Qualified Code(s): E11.65 - Type 2 diabetes mellitus with hyperglycemia; Z79.4 - rn internal medicine (current) use of insulin (8) Pneumonia: (9) Mitral stenosis: Plan Beth Winkler is a 82 year old female with PMH of COPD on 2 Ls oxygen at home, DM, PVD, HFpEF,?atrial fibrillation, was brought in today with chief complaint of acute onset of left lower quadrant abdominal pain, associated with some nausea no vomiting, she was also complaining of worsening shortness of breath, orthopnea going on for the last few days, she denied any fever chills cough, chest pain, vomiting. Assessment: NSTEMI: EKG atrial fibrillation. Troponin trend: 108-147 -6H troponin is pending. Follow 2D echo: Normal LV size and systolic function with EF of 64%, no RWMA Currently on ACS protocol (on therapeutic anticoagulation with Lovenox, statin, aspirin) Continue telemetry monitoring Cardiology consult Decompensated heart failure with preserved ejection fraction: Patient has bilateral pleural effusion, worsening shortness of breath, orthopnea Continue Lasix 60 IV BID daily Monitor intake and output charting Monitor daily weight Telemetry monitoring Possible underlying pneumonia: The clinical suspicion is low. X-ray chest: patchy opacity involving the right lung base up to the hilar level with similar right perihilar change. The opacity is greatest in the lower base which is probably due to pleural effusion There is retrocardiac medial left basal opacity in addition to blunting of the costophrenic angle indicating small effusion. Follow sputum Gram stain and culture. Blood culture:NTD Urine Legionella antigen Bacterial antigen panel Influenza and rapid COVID is negative Empirically on broad-spectrum antibiotic Vanco and Zosyn DuoNebs Supplemental oxygen as needed History of COPD on 2 L home oxygen: Plan as above Severe pulmonary hypertension: Pulmonary artery peak systolic pressure 73 mmHg. Pulmonary follow-up as outpatient History of diabetes: Continue sliding scale insulin, monitor fingerstick glucose History of atrial fibrillation: Currently rate is controlled On therapeutic anticoagulation with Lovenox. We will switch to p.o. anticoagulation on discharge History of hypertension: Continue clonidine and hydralazine Mild mitral stenosis: Mitral valve mean gradient is 12.8,?mmHg.? The mitral valve area by pressure half-time is 2.14 cm squared.? Peak velocity across the mitral valve was 2.95 m/s. Continue cardiology follow-up as Left lower quadrant abdominal pain: CT abdomen and pelvis showed: No acute intra abdominal or pelvic pathology. Monitor for now CODE STATUS:AND DVT prophylaxis not needed on therapeutic anticoagulation with Lovenox Attestations Medical Necessity Statement*: Patient is in hospital for the management of NSTEMI. 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
--- NOTE | 2022-10-17 17:12 | PM.CONSULT ---
Providers/Reason For Consult Consulting Physician/Specialty*: Livan Edwards MD/ Cardiology Reason for Consult*: Troponin elevation/ shortness of breath Requesting Physician: Dr Londono Attending Physician: Jhonatan Londono MD Primary Care Provider: Deep Angeles DO History of Present Illness History of Present Illness Beth Winkler is a 82 year old female with past medical history of COPD, HFpEF, atrial fibrillation who presented to hospital with left lower quadrant discomfort and significant shortness of breath. She also had orthopnea. Cardiology was consulted as patient troponins had a significant increase from a baseline of 10 8-163 at 6 hours. EKG showed atrial fibrillation with heart rate of [address]-T wave changes. She had echocardiogram that shows preserved LV systolic function. There is a discrepancy in valve area and mean gradient across mitral valve with a mean mitral valve gradient of 12.6 mmHg but valve area of more than 2 cm?. She has severe pulmonary hypertension. For abdominal pain, no significant etiology found. She has possible pneumonia. Review of Systems General: Reports: 10 or more systems reviewed and unremarkable except in HPI and below Const: Denies: fever(s), chills, body aches, change in appetite or diaphoresis Card: Reports: dyspnea on exertion and orthopnea; Denies: palpitations, edema, swelling of feet/ankles or leg pain with exertion Resp: Reports: dyspnea; Denies: productive cough, wheezing or pain on inspiration GI: Denies: abdominal pain, nausea, vomiting, diarrhea or constipation : Denies: flank pain Musc: Denies: back pain, extremity pain or extremity swelling Neuro: Denies: headache(s), difficulty walking or confusion Medications/Allergies Home Medications Medication Instructions Recorded Confirmed Last Taken Type albuterol sulfate 90 mcg/actuation 2 puff inhalation Q6H PRN 06/29/20 10/16/22 08/20/22 History aerosol inhaler Shortness Of Breath aspirin 81 mg chewable tablet 81 mg PO DAILY 06/29/20 10/16/22 10/15/22 History atorvastatin 20 mg tablet 20 mg PO BEDTIME 06/29/20 10/16/22 10/15/22 History cilostazol 100 mg tablet 100 mg PO BID 06/29/20 10/16/22 10/15/22 History fluticasone propionate 50 1 spray intranasal DAILY 06/29/20 10/16/22 10/15/22 History mcg/actuation nasal spray,suspension insulin lispro 100 unit/mL See Rx Instructions .Route .COMPLEX 06/29/20 10/16/22 08/20/22 History subcutaneous pen (Humalog KwikPen (U-100) Insulin) latanoprost 0.005 % eye drops 1 drp ophthalmic (eye) BEDTIME 06/29/20 10/16/22 10/15/22 History raxwzb-kmfzgzge-wtbpqft 2 cap PO TID 06/29/20 10/16/22 10/15/22 History 24,000-76,000-120,000 unit capsule,delayed rel (Creon) mupirocin 2 % topical ointment 1 applic topical DAILY 06/29/20 10/16/22 Unknown History pantoprazole 40 mg tablet,delayed 40 mg PO DAILY 06/29/20 10/16/22 10/15/22 History release umeclidinium 62.5 mcg-vilanterol 2 ea inhalation DAILY 06/29/20 10/16/22 08/20/22 History 25 mcg/actuation powdr for inhalation (Anoro Ellipta) dorzolamide 2 % eye drops 1 drp ophthalmic (eye) BID 07/27/20 10/16/22 10/15/22 History ondansetron HCl 4 mg tablet 4 mg PO Q6H PRN nausea and vomiting 07/27/20 10/16/22 08/20/22 History clindamycin HCl 300 mg capsule 300 mg PO TID 11/16/20 10/16/22 10/15/22 History gabapentin 100 mg capsule 100 mg PO TID 11/16/20 10/16/22 10/15/22 History clonidine HCl 0.1 mg tablet 0.2 mg PO BID 11/15/21 10/16/22 10/15/22 History biotin 5,000 mcg sublingual tablet 5,000 mcg sublingual BID 08/20/22 10/16/22 10/15/22 History cholecalciferol (vitamin D3) 25 25 mcg PO DAILY 08/20/22 10/16/22 10/15/22 History mcg (1,000 unit) capsule (Vitamin D3) ferrous sulfate 325 mg (65 mg 325 mg PO TID 08/20/22 10/16/22 10/15/22 History iron) tablet (iron) insulin glargine U-300 conc 300 130 unit SUBCUT DAILY 08/20/22 10/16/22 10/15/22 History unit/mL (1.5 mL) subcutaneous pen (Nasim SoloStar U-300 Insulin) unzqlhvo-yrj-xbgou ac 400 1 tab PO DAILY 08/20/22 10/16/22 10/15/22 History mcg-calcium carb 500 mg-vit K1 20 mcg tablet (Women's 50 Plus Multivitamin) clotrimazole 1 % topical cream 1 applic topical BID 4 weeks #30 08/28/22 10/16/22 10/15/22 Rx grams furosemide 40 mg tablet 60 mg PO DAILY@0800 #90 tabs 09/11/22 10/16/22 10/15/22 Rx hydralazine 25 mg tablet 25 mg PO TID #90 tabs 09/11/22 10/16/22 10/15/22 Rx adalimumab 40 mg/0.4 mL 40 mg SUBCUT Q7D 10/16/22 10/16/22 Unknown History subcutaneous pen kit (Humira(CF) Pen) albuterol sulfate 2.5 mg/3 mL 2.5 mg inhalation QID PRN 10/16/22 10/16/22 Unknown History (0.083 %) solution for nebulization Shortness Of Breath ipratropium bromide 0.02 % 2.5 ml inhalation QID PRN 10/16/22 10/16/22 Unknown History solution for inhalation Shortness Of Breath Allergies Allergy/AdvReac Type Severity Reaction Status Date / Time doxycycline Allergy Unknown Verified 09/11/22 15:59 Sulfa (Sulfonamide Allergy ALGY-Rash Verified 09/11/22 15:59 Antibiotics) Current Medications Generic Name Dose Route Start Last Admin Trade Name Freq PRN Reason Stop Dose Admin Acetaminophen 650 mg 10/16/22 17:12 10/17/22 09:02 Acetaminophen 325 Mg Tablet PO 650 mg Q6H PRN Administration Mild/Mod Pain Or Temp >/= 101 Albuterol/Ipratropium 3 ml 10/16/22 20:00 10/17/22 13:19 Ipratropium-Albuterol 3 Ml Neb INHALATION 3 ml Q6H.RESP DELVIN Administration Lipase/Protease/Amylase 2 each 10/16/22 18:00 10/17/22 12:57 Nzakmf-Nvbtbpxy-Lsigjlq Capsule PO 2 each TIDWM DELVIN Administration Aspirin 81 mg 10/17/22 09:00 10/17/22 08:28 Aspirin 81 Mg Chew Tablet PO 81 mg DAILY [facility] Administration Atorvastatin Calcium 20 mg 10/16/22 21:00 10/16/22 20:52 Atorvastatin 40 Mg Tablet PO 20 mg BEDTIME DELVIN Administration Cilostazol 100 mg 10/16/22 21:00 10/17/22 08:27 Cilostazol 100 Mg Tablet PO 100 mg BID@0900,2099 [facility] Administration Clonidine HCl 0.2 mg 10/16/22 21:00 10/17/22 08:27 Clonidine 0.1 Mg Tablet PO 0.2 mg BID@0900,2099 [facility] Administration Clotrimazole 1 applic 10/16/22 18:00 10/17/22 16:59 Clotrimazole 1% Cream 30 Gm TOPICAL Not Given BID [facility] Dorzolamide HCl 1 drop 10/16/22 21:00 10/17/22 08:31 Dorzolamide 2% Op Soln 10 Ml Btl EYE-BOTH 1 drop BID@899,2099 [facility] Administration Enoxaparin Sodium 110 mg 10/17/22 06:00 10/17/22 16:59 Enoxaparin 120 Mg/0.8 Ml Syringe SUBCUT Not Given Q12H [facility] Ferrous Sulfate 325 mg 10/16/22 21:00 10/17/22 15:37 Ferrous Sulfate Ec 325 Mg Tablet PO 325 mg TID [facility] Administration Furosemide 60 mg 10/17/22 09:00 10/17/22 08:28 Furosemide 10 Mg/Ml Sdv 10ml IVP 60 mg BID [facility] Administration Gabapentin 100 mg 10/16/22 21:00 10/17/22 15:37 Gabapentin 100 Mg Capsule PO 100 mg TID [facility] Administration Hydralazine HCl 25 mg 10/16/22 21:00 10/17/22 15:37 Hydralazine 25 Mg Tablet PO 25 mg TID [facility] Administration Piperacillin Sod/Tazobactam 50 mls @ 12.5 mls/hr 10/16/22 18:00 10/17/22 14:52 Sod 3.375 gm/ Sodium Chloride IV Infused Q8H [facility] Infusion Protocol Vancomycin/PEG/NADA/Lysine/Water 1,250 mg in 250 mls @ 200 mls/hr 10/16/22 18:30 10/16/22 21:18 Vancocin IV Infused Q24H [facility]VIN Infusion Pantoprazole Sodium 40 mg 10/17/22 09:00 10/17/22 08:[address] 40 Mg Tablet PO 40 mg DAILY [facility]VIN Administration Vitamin D 1,000 unit 10/17/22 09:00 10/17/22 08:27 Cholecalciferol (Vitamin D3) 1,000 Unit Tablet PO 1,000 unit DAILY DELVIN Administration PFSH Acute PFSH: Medical History Acute hypokalemia MATTIE (acute kidney injury) Anemia COPD (chronic obstructive pulmonary disease) Decubitus ulcer Diabetes Heart failure Myelodysplasia (myelodysplastic syndrome) PAD (peripheral artery disease) Pneumonia Pneumonia due to COVID-19 virus Sleep apnea Surgical History Hx of appendectomy Hx of cataract extraction Hx of section Hx of cholecystectomy Hx of hysterectomy Family History Mother CAD (coronary artery disease) Diabetes Daughter Diabetes Lung disease Suicide Son Diabetes Lung disease Denies family history of Clotting disorder Dementia Chronic kidney disease (CKD) Anesthesia complication Bleeding disorder Cancer Stroke Social History Smoking and tobacco status: former smoker (smoked x 8 years) Alcohol intake: never Lives independently: Yes Household members: other Details: Son Vitals/I&O/Wt Last Vital Signs Temp 97.8 F 10/17/22 15:45 Pulse 97 10/17/22 15:45 Resp 25 H 10/17/22 15:45 BP 142/65 10/17/22 15:45 Pulse Ox 99 10/17/22 15:45 O2 Del Method Nasal Cannula 10/17/22 15:45 O2 Flow Rate 3 10/17/22 13:19 10/17/22 10/17/22 10/17/22 06:59 14:59 22:59 Intake Total 100 / 350 1190 / 1190 Output Total 1400 / 1400 800 / 800 Balance -1300 / -1050 390 / 390 Weight last 48 hrs Weight 241 lb Weight 243 lb Weight 243 lb Physical Exam Narrative: GENERAL: Patient is alert, awake and oriented x3. [] NECK: No jugular vein distension. [] HEENT: No cyanosis. No icterus. No pallor. [] HEART: Irregularly irregular LUNGS: Diminished air entry. CENTRAL NERVOUS SYSTEM: Grossly nonfocal. [] EXTREMITIES: Lower extremities with 1+ edema bilaterally. Data 10/19/22 04:27 10/19/22 04:27 Micro: Microbiology 10/16/22 18:28 Blood Culture - Preliminary Blood SPECIMEN COLLECTED 10/16/22 18:09 Blood Culture - Preliminary Blood SPECIMEN COLLECTED A&P Assessment and plan (1) NSTEMI (non-ST elevated myocardial infarction): (2) Atrial fibrillation: (3) Pneumonia: (4) Mitral stenosis: (5) HTN (hypertension): (6) Pulmonary edema: Qualifiers: Chronicity: acute Qualified Code(s): J81.0 - Acute pulmonary edema (7) Type 2 diabetes mellitus: Qualifiers: Diabetes mellitus complication status: with hyperglycemia Diabetes mellitus research associate molecular biology insulin use: with custodial use Qualified Code(s): E11.65 - Type 2 diabetes mellitus with hyperglycemia; Z79.4 - penitentiary (current) use of insulin Plan Patient has pulmonary edema and had significant troponin increase. She will need continued IV diuresis. Once volume status improves, we will proceed with coronary angiogram with right heart cath and possible percutaneous coronary intervention. Continue aspirin. We will stop cilostazol secondary to heart failure symptoms. Continue anticoagulation. She has mitral stenosis. There is discrepancy between the valve area by pressure half-time and mean gradient across the mitral valve. Once she is stable from, she may benefit from cross vaginal echocardiogram. Close I&O's. Monitor renal function. Thank you for involving us with care of this patient. We will continue to follow. Please call with questions. Consult Attestations Medical Necessity Statement: Care expected to cross 2 midnights. Coding Level of Care Code Acute Code for [facility] Diagnoses NSTEMI (non-ST elevated myocardial infarction) I21.4 Atrial fibrillation I48.91 Pneumonia J18.9 Mitral stenosis I05.0 HTN (hypertension) I10 Pulmonary edema J81.0 Chronicity: acute Type 2 diabetes mellitus E11.65; Z79.4 Diabetes mellitus complication status: with hyperglycemia Diabetes mellitus research associate molecular biology insulin use: with research associate molecular biology use
[2022-10-17] MEDS: vancomycin 1,250 MG/250 ML PIGGYBACK 250 MG IV (17:37)
[2022-10-17] MEDS: atorvastatin 40 mg Tablet 20 MG PO (20:06)
[2022-10-17 20:36] LABS: Glucose Point of Care 445 mg/dL (70-110)
[2022-10-17] MEDS: insulin glargine 100 units/1 mL 30 UNIT SUBCUT (20:52)
[2022-10-18] VITALS (26 sets, daily range): BP systolic 108–184; BP diastolic 53–90; PULSE 80–158; RESP 14–37; TEMP 36.5–36.9; O2SAT 71–99
[2022-10-18] MEDS: piperacillin-tazobactam 3.375 GM in sodium chloride 0.9% (plus) 50 ML IV ×3 (01:46→17:24)
[2022-10-18] MEDS: ipratropium-albuterol 3 mL Neb INHALATION ×3 (02:25→21:00)
[2022-10-18 04:54] LABS: Basophils % 0.5 %; Eosinophils # 0.1 10^3/uL (0.0-0.8); Eosinophils % 2.2 %; Hemoglobin 8.7 g/dL (11.5-15.3); Lymphocytes # 0.7 10^3/uL (0.8-4.8); Lymphocytes % 12.6 %; Mean Corpuscular Hemoglobin 30.6 pg (28.0-34.0); Mean Corpuscular Volume 102.1 fl (81-99); Monocytes # 0.5 10^3/uL (0.2-0.9); Monocytes % 8.3 %; Neutrophils # 4.37 10^3/uL (1.8-7.7); Neutrophils % 75.7 %; Nucleated Red Blood Cells % 0 %; Platelet Count 160 10^3/cmm (130-400); Red Blood Count 2.84 10^6/uL (4.1-5.3); Red Cell Distribution Width 13.7 % (12.1-15.1); White Blood Count 5.8 10^3/uL (4.0-10.0)
[2022-10-18 04:58] LABS: INR 1.02 (0.8-1.2)
[2022-10-18 05:06] LABS: Alanine Aminotransferase 9 U/L (0-33); Albumin Level 3.5 g/dL (3.5-5.2); Alkaline Phosphatase 60 U/L (35-105); Anion Gap 12.7 (5-19); Aspartate Amino Transferase 14 U/L (0-32); Blood Urea Nitrogen 18 mg/dL (8-23); Calcium 10.4 mg/dL (8.5-10.5); Carbon Dioxide 32 mmol/L (22-29); Chloride 100 mmol/L (98-107); Globulin 2.7 g/dL (1.3-4.6); Glucose 252 mg/dL (65-115); Osmolality Calculated 302 mOsm/kg (285-295); Potassium 3.7 mmol/L (3.5-5.1); Sodium 141 mmol/L (136-145); Total Bilirubin 0.3 mg/dL (0.15-1.2); Total Protein 6.2 g/dL (6.6-8.7)
[2022-10-18 06:29] LABS: Glucose Point of Care 301 mg/dL (70-110)
[2022-10-18] MEDS: LORazepam 2 mg/mL INJ 1 mL 1 MG IVP (07:27)
[2022-10-18] MEDS: FUROsemide 10 mg/mL SDV 10mL 60 MG IVP ×3 (07:28→20:55)
--- NOTE | 2022-10-18 07:35 | PC.NURSE ---
around 0700 pt called out saying she was SOB. O2 was increased to 5L nc. RT was informed. pt sounds dim with slight expiratory wheeze on left upper. MD was called. Patient Spo2 was 80's HR [address] Bipap was ordered. RT informed. ativan ordered and lasix 60mg to be given early. 725. ativan given. pt appeared diaphoretic with labored breathing, SPO2 70's HR 150's. O2 mask applied at 15L till Bipap arrives. RN found RT and informed them on interventions and pt current vitals. MD messaged about rhythm change HR 100-160 BP 108/87.
--- NOTE | 2022-10-18 07:45 | ECG_ITS ---
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 Measurements Intervals [place] Rate: 157 P: 0 LA: 0 QRS: 11 QRSD: 94 T: 63 QT: 296 QTc: 478 Interpretive Statements ATRIAL FIBRILLATION WITH RAPID VENTRICULAR RESPONSE LOW QRS VOLTAGE IN EXTREMITY LEADS [QRS DEFLECTION < 0.5 mV IN LIMB LEADS] PATTERN CONSISTENT WITH PULMONARY DISEASE MODERATE ST DEPRESSION [0.05+ mV ST DEPRESSION] Compared to ECG 10/16/2022 18:18:24 ST (T wave) deviation now present Sinus rhythm no longer present Myocardial infarct finding no longer present Electronically Signed On 10-18-2022 13:50:59 CDT by Livan Edwards M.D. [id number]
[2022-10-18] MEDS: insulin lispro 100 unit/1 mL SUBCUT ×4 (08:07→21:47)
[2022-10-18] MEDS: dilTIAZem 5 mg/mL SDV 5 mL 10 MG IVP (08:09)
[2022-10-18] MEDS: enoxaparin 120 mg/0.8 mL Syringe 110 MG SUBCUT ×2 (09:57→17:26)
[2022-10-18] MEDS: hyDRALAzine 25 mg Tablet PO ×3 (09:58→20:56)
[2022-10-18] MEDS: cholecalciferol (vitamin D3) 1,000 unit Tablet 1000 UNIT PO (09:58)
[2022-10-18] MEDS: aspirin 81 mg Chew Tablet PO (09:59)
[2022-10-18] MEDS: ferrous sulfate EC 325 mg Tablet PO ×3 (09:59→20:56)
[2022-10-18] MEDS: dorzolamide 2% Op Soln 10 mL Btl 1 DROP EYE-BOTH ×2 (09:59→20:55)
[2022-10-18] MEDS: cilostazol 100 mg Tablet PO ×2 (09:59→20:56)
[2022-10-18] MEDS: gabapentin 100 mg Capsule PO ×3 (09:59→20:56)
[2022-10-18] MEDS: cloNIDine 0.1 mg Tablet 0.2 MG PO ×2 (09:59→20:56)
[2022-10-18] MEDS: pantoprazole DR 40 mg Tablet PO (09:59)
[2022-10-18 11:10] LABS: Glucose Point of Care 309 mg/dL (70-110)
[2022-10-18] MEDS: lipase-protease-amylase Capsule 2 EACH PO ×2 (11:39→17:28)
--- NOTE | 2022-10-18 12:49 | P.PN_ITS ---
Subjective Subjective: Patient is feeling better. She had episode of A-fib with RVR this morning. She received IV Cardizem. Heart rates are better controlled now. Vitals/I&O/Wt Last Vital Signs Temp 98.4 F 10/18/22 04:00 Pulse 81 10/18/22 11:08 Resp 25 H 10/18/22 07:51 BP 152/90 10/18/22 09:59 Pulse Ox 98 10/18/22 11:08 O2 Del Method BiPAP 10/18/22 07:51 O2 Flow Rate 5 10/18/22 07:31 FiO2 40 10/18/22 11:08 10/17/22 10/18/22 10/18/22 22:59 06:59 14:59 Intake Total 780 / 1970 650 / 2620 Output Total 400 / 1200 1000 / 2200 Balance 380 / 770 -350 / 420 Weight last 48 hrs Weight 248 lb Weight 241 lb Weight 243 lb Physical Exam Narrative: GENERAL: Patient is alert, awake and oriented x3. [] NECK: No jugular vein distension. [] HEENT: No cyanosis. No icterus. No pallor. [] HEART: Irregularly irregular LUNGS: Diminished air entry. CENTRAL NERVOUS SYSTEM: Grossly nonfocal. [] EXTREMITIES: Lower extremities with 1+ edema bilaterally. Data 10/19/22 04:27 10/19/22 04:27 Micro: Microbiology 10/17/22 18:27 Legionella Urinary Antigen - Final Urine Catheterized 10/16/22 21:07 MRSA Culture - Final Nose 10/16/22 18:28 Blood Culture - Preliminary Blood NEGATIVE TO DATE 10/16/22 18:09 Blood Culture - Preliminary Blood NEGATIVE TO DATE A&P Assessment and plan (1) NSTEMI (non-ST elevated myocardial infarction): (2) Atrial fibrillation: (3) Pneumonia: (4) Mitral stenosis: (5) HTN (hypertension): (6) Pulmonary edema: Qualifiers: Chronicity: acute Qualified Code(s): J81.0 - Acute pulmonary edema (7) Type 2 diabetes mellitus: Qualifiers: Diabetes mellitus complication status: with hyperglycemia Diabetes mellitus retirement insulin use: with supervisor intermediates use Qualified Code(s): E11.65 - Type 2 diabetes mellitus with hyperglycemia; Z79.4 - terminal block assembler (current) use of insulin Plan She is diuresing well. Continue IV diuresis with renal function monitoring. Once volume status is better, we will proceed with coronary angiogram over the weekend. Continue aspirin. We will stop cilostazol secondary to heart failure symptoms. Continue anticoagulation. She has mitral stenosis. There is discrepancy between the valve area by pressure half-time and mean gradient across the mitral valve. Once she is stable from, she may benefit from cross vaginal echocardiogram. Close I&O's. Monitor renal function. Thank you for involving us with care of this patient. We will continue to follow. Please call with questions. Attestations Medical Necessity Statement*: Care expected to cross 2 midnights. Coding [facility] N[facility] (non-ST elevated myocardial infarction) I21.4 Atrial fibrillation I48.91 Pneumonia J18.9 Mitral stenosis I05.0 HTN (hypertension) I10 Pulmonary edema J81.0 Chronicity: acute Type 2 diabetes mellitus E11.65; Z79.4 Diabetes mellitus complication status: with hyperglycemia Diabetes mellitus retirement insulin use: with retirement use
--- NOTE | 2022-10-18 13:43 | PM.PN ---
Subjective Subjective: Patient was seen and examined this morning, went into A-fib with RVR this morning, received Cardizem 10 mg IV push one-time, she was also having significant shortness of breath, had to be placed on BiPAP. Ultrasound chest has not shown any significant pleural effusion to be tapped. Medications: Medication Review Details: Generic Name Dose Route Start Last Admin Trade Name Freq PRN Reason Stop Dose Admin Acetaminophen 650 mg 10/16/22 17:12 10/17/22 09:02 Acetaminophen 32 5 Mg Tablet PO 650 mg Q6H PRN Administration Mild/Mod Pain Or Temp >/= 101 Albuterol/Ipratrop ium 3 ml 10/16/22 20:00 10/18/22 13:32 Ipratropium-Albu terol 3 Ml Neb INHALATION 3 ml Q6H.RESP DELVIN Administration Lipase/Protease/Am ylase 2 each 10/16/22 18:00 10/18/22 11:39 Lipase-Protease- Amylase Capsule PO 2 each TIDWM DELVIN Administration Aspirin 81 mg 10/17/22 09:00 10/18/22 09:59 Aspirin 81 Mg Ch ew Tablet PO 81 mg DAILY DELVIN Administration Atorvastatin Calci um 20 mg 10/16/22 21:00 10/17/22 20:06 Atorvastatin 40 Mg Tablet PO 20 mg BEDTIME DELVIN Administration Cilostazol 100 mg 10/16/22 21:00 10/18/22 09:59 Cilostazol 100 M g Tablet PO 100 mg BID@0900,2100 EDLVIN Administration Clonidine HCl 0.2 mg 10/16/22 21:00 10/18/22 09:59 Clonidine 0.1 Mg Tablet PO 0.2 mg BID@0900,2100 DELVIN Administration Clotrimazole 1 applic 10/16/22 18:00 10/18/22 08:04 Clotrimazole 1% Cream 30 Gm TOPICAL Not Given BID DELVIN Dorzolamide HCl 1 drop 10/16/22 21:00 10/18/22 09:59 Dorzolamide 2% O p Soln 10 Ml Btl EYE-BOTH 1 drop BID@0900,2100 DELVIN Administration Enoxaparin Sodium 110 mg 10/17/22 06:00 10/18/22 09:57 Enoxaparin 120 M g/0.8 Ml Syringe SUBCUT 110 mg Q12H DELVIN Administration Ferrous Sulfate 325 mg 10/16/22 21:00 10/18/22 09:59 Ferrous Sulfate Ec 325 Mg Tablet PO 325 mg TID DELVIN Administration Furosemide 60 mg 10/17/22 09:00 10/18/22 07:28 Furosemide 10 Mg /Ml Sdv 10ml IVP 60 mg BID DELVIN Administration Gabapentin 100 mg 10/16/22 21:00 10/18/22 09:59 Gabapentin 100 M g Capsule PO 100 mg TID DELVIN Administration Hydralazine HCl 25 mg 10/16/22 21:00 10/18/22 09:58 Hydralazine 25 M g Tablet PO 25 mg TID DELVIN Administration Piperacillin Sod/T azobactam 50 mls @ 12.5 mls /hr 10/16/22 18:00 10/18/22 09:57 Sod 3.375 gm/ So dium Chloride IV 12.5 mls/hr Q8H DELVIN Administration Protocol Vancomycin/PEG/NAD A/Lysine/Water 1,250 mg in 250 m ls @ 200 mls/hr 10/16/22 18:30 10/17/22 18:58 Vancocin IV Infused Q24H DELVIN Infusion Insulin Glargine 30 unit 10/17/22 21:00 10/17/22 20:52 Insulin Glargine 100 Units/1 Ml SUBCUT 30 unit BEDTIME DELVIN Administration Insulin Human Lisp ro 0 unit 10/17/22 18:00 10/18/22 11:40 Insulin Lispro 1 00 Unit/1 Ml SUBCUT 12 unit WM&BEDTIME DELVIN Administration Protocol Lorazepam 1 mg 10/18/22 07:20 10/18/22 07:27 Lorazepam 2 Mg/M l Inj 1 Ml IVP 1 mg ONCE PRN Administration ANXIETY Pantoprazole Sodiu m 40 mg 10/17/22 09:00 10/18/22 09:[address] 40 Mg Tablet PO 40 mg DAILY DELVIN Administration Vitamin D 1,000 unit 10/17/22 09:00 10/18/22 09:58 Cholecalciferol (Vitamin D3) 1,000 Unit Tablet PO 1,000 unit DAILY DELVIN Administration Vitals/I&O/Wt Last Vital Signs Temp 98.0 F 10/18/22 12:00 Pulse 89 10/18/22 13:42 Resp 16 10/18/22 13:30 BP 131/72 10/18/22 13:06 Pulse Ox 92 04/14/23 13:30 O2 Del Method Nasal Cannula 10/18/22 13:30 O2 Flow Rate 2 10/18/22 13:30 FiO2 40 10/18/22 11:08 10/17/22 10/18/22 10/18/22 22:59 06:59 14:59 Intake Total 780 / 1970 650 / 2620 Output Total 400 / 1200 1000 / 2200 Balance 380 / 770 -350 / 420 Weight last 48 hrs Weight 112.491 kg Weight 109.316 kg Weight 110.223 kg Physical Exam Const: COMMON NORMALS: patient oriented x3 HENMT: COMMON NORMALS: normocephalic and atraumatic HEAD & SCALP: normocephalic and atraumatic Resp: OTHER: Diminished air entry bilaterally, bilateral basal crackles present Cardio: COMMON NORMALS: No rub (Cardio) and Peripheral pulses 2+ throughout PERIPHERAL PULSES: Peripheral pulses 2+ throughout OTHER: Irregularly irregular rhythm S1-S2 variable intensity GI: COMMON NORMALS: Normal to inspection, nondistended, normoactive bowel sounds present, Soft to palpation, non-tender, No hepatosplenomegaly present and no masses AUSCULTATION: Yes normoactive bowel sounds PALPATION: Yes Soft to palpation and Yes No hepatosplenomegaly present RECTAL EXAM: deferred Extremity: COMMON NORMALS: no clubbing, cyanosis or edema and no pedal edema Neuro: COMMON NORMALS: patient oriented x3 Data 10/18/22 03:54 10/18/22 03:54 Micro: Microbiology 10/17/22 18:27 Legionella Urinary Antigen - Final Urine Catheterized 10/16/22 21:07 MRSA Culture - Final Nose 10/16/22 18:28 Blood Culture - Preliminary Blood NEGATIVE TO DATE 10/16/22 18:09 Blood Culture - Preliminary Blood NEGATIVE TO DATE A&P Assessment and plan (1) Atrial fibrillation: (2) NSTEMI (non-ST elevated myocardial infarction): (3) Pleural effusion: (4) Mitral stenosis: (5) HTN (hypertension): (6) Acute diastolic CHF (congestive heart failure): (7) Type 2 diabetes mellitus: Qualifiers: Diabetes mellitus complication status: with hyperglycemia 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 Assessment: NSTEMI: EKG atrial fibrillation. Troponin trend: 108-147 -6H troponin is pending. Follow 2D echo: Normal LV size and systolic function with EF of 64%, no RWMA Currently on ACS protocol (on therapeutic anticoagulation with Lovenox, statin, aspirin) Continue telemetry monitoring Cardiology consult Decompensated heart failure with preserved ejection fraction: Patient has bilateral pleural effusion, worsening shortness of breath, orthopnea Continue Lasix 60 IV BID daily Monitor intake and output charting Monitor daily weight Telemetry monitoring Possible underlying pneumonia: The clinical suspicion is low. X-ray chest: patchy opacity involving the right lung base up to the hilar level with similar right perihilar change. The opacity is greatest in the lower base which is probably due to pleural effusion There is retrocardiac medial left basal opacity in addition to blunting of the costophrenic angle indicating small effusion. Follow sputum Gram stain and culture. Blood culture:NTD Urine Legionella antigen: Negative Bacterial antigen panel: MRSA PCR : Negative Influenza and rapid COVID is negative Empirically on broad-spectrum antibiotic Vanco and Zosyn DuoNebs Supplemental oxygen as needed History of COPD on 2 L home oxygen: Plan as above Severe pulmonary hypertension: Pulmonary artery peak systolic pressure 73 mmHg. Pulmonary follow-up as outpatient History of diabetes: Continue sliding scale insulin, monitor fingerstick glucose History of atrial fibrillation: Currently rate is controlled On therapeutic anticoagulation with Lovenox. We will switch to p.o. anticoagulation on discharge History of hypertension: Continue clonidine and hydralazine Mild mitral stenosis: Mitral valve mean gradient is 12.8,?mmHg.? The mitral valve area by pressure half-time is 2.14 cm squared.? Peak velocity across the mitral valve was 2.95 m/s. Cardiology on board Left lower quadrant abdominal pain: CT abdomen and pelvis showed: No acute intra abdominal or pelvic pathology. Monitor for now CODE STATUS:AND DVT prophylaxis not needed on therapeutic anticoagulation with Lovenox Attestations Medical Necessity Statement*: Patient is to be in hospital for the management of NSTEMI Coding Level of Care Code 47526 Diagnoses Atrial fibrillation I48.91 NSTEMI (non-ST elevated myocardial infarction) I21.4 Pleural effusion J90 Mitral stenosis I05.0 HTN (hypertension) I10 Acute diastolic CHF (congestive heart failure) I50.31 Type 2 diabetes mellitus E11.65; Z79.4 Diabetes mellitus complication status: with hyperglycemia Diabetes mellitus retirement insulin use: with retirement use Pneumonia J18.9
--- NOTE | 2022-10-18 16:49 | US_ITS ---
WS: [id number] Ultrasound chest, RIGHT. HISTORY: Evaluate prior to thoracentesis. RIGHT chest is evaluated for possible thoracentesis. There was only a very small pleural effusion not ed at the lung base on 10/16/2022. There is no significant fluid identified today. There is a very tin y sliver fluid along the RIGHT diaphragmatic surface. Insufficient for thoracentesis. US/US chest [id number] IMPRESSION: No significant amount of pleural fluid for thoracentesis.
[2022-10-18 17:02] LABS: Glucose Point of Care 334 mg/dL (70-110)
[2022-10-18] MEDS: vancomycin 1,250 MG/250 ML PIGGYBACK 250 MG IV (17:30)
--- NOTE | 2022-10-18 17:59 | CTR_ITS ---
PROCEDURE INFORMATION: Exam: CTA Chest With Contrast Exam date and time: 10/18/2022 6:23 PM Age: 82 years old Clinical indication: Shortness of breath; Patient HX: Severe SOB; Low o2 sats; Additional info: R/O p/e TECHNIQUE: Imaging protocol: Computed tomographic angiography of the chest with contrast. 3D rendering (Not supervised by radiologist): MIP and/or 3D reconstructed images were created by the technologist. Radiation optimization: All CT scans at this facility use at least one of these dose optimization techniques: automated exposure control; mA and/or kV adjustment per patient size (includes targeted exams where dose is matched to clinical indication); or iterative reconstruction. Contrast material: OMNI 350; Contrast volume: 100 ml; Contrast route: INTRAVENOUS (IV); REPORTING DATA: Count of CT and Cardiac NM exams in prior 12 months: This patient has received [address] and 0 known cardiac nuclear medicine studies in the 12 months prior to the current study. COMPARISON: CR XR chest 1V portable [id number] 08/28/2022 4:01 AM RADIATION DOSE METRICS: Total DLP (mGy-cm): 538.27 FINDINGS: Pulmonary arteries: Normal. No pulmonary emboli. Aorta: Unremarkable. No aortic aneurysm. No aortic dissection. Lungs: Patchy bilateral dependent airspace infiltrates. Pleural spaces: Moderate bilateral pleural effusions. Heart: Cardiomegaly. Coronary arteries: Coronary artery atherosclerotic calcifications. Lymph nodes: Enlarged right hilar 2.8 cm lymph node with scattered prominent additional subcentimeter lymph nodes throughout the mediastinum, nonspecific. Gallbladder and bile ducts: Cholecystectomy. Pancreas: Benign pancreatic calcifications. Bones/joints: Unremarkable. No acute fracture. Soft tissues: Unremarkable. CT/CT angio chest PE protcl [id number] IMPRESSION: 1. Negative for pulmonary embolus. 2. Moderate bilateral pleural effusions. 3. Cardiomegaly. 4. Coronary artery atherosclerotic calcifications. 5. Cholecystectomy. 6. Benign pancreatic calcifications. 7. Patchy bilateral dependent airspace infiltrates. 8. Enlarged right hilar 2.8 cm lymph node with scattered prominent additional subcentimeter lymph nodes throughout the mediastinum, nonspecific.
[2022-10-18] MEDS: iohexol 350 mg/mL 500 mL Btl (per mL) IV (18:35)
[2022-10-18] MEDS: dilTIAZem 30 mg Tablet PO ×2 (19:22→23:46)
[2022-10-18] MEDS: atorvastatin 40 mg Tablet 20 MG PO (20:56)
[2022-10-18 21:10] LABS: Glucose Point of Care 306 mg/dL (70-110)
[2022-10-18] MEDS: insulin glargine 100 units/1 mL 30 UNIT SUBCUT (21:48)
[2022-10-19] VITALS (21 sets, daily range): BP systolic 125–166; BP diastolic 63–92; PULSE 74–103; RESP 15–34; TEMP 36.5–37.4; O2SAT 94–98
[2022-10-19] MEDS: piperacillin-tazobactam 3.375 GM in sodium chloride 0.9% (plus) 50 ML IV ×3 (02:08→17:16)
[2022-10-19] MEDS: ipratropium-albuterol 3 mL Neb INHALATION ×4 (02:45→21:09)
[2022-10-19 05:12] LABS: Basophils % 0.4 %; Eosinophils # 0.1 10^3/uL (0.0-0.8); Eosinophils % 1.6 %; Hemoglobin 8.7 g/dL (11.5-15.3); Lymphocytes # 0.9 10^3/uL (0.8-4.8); Lymphocytes % 15.1 %; Mean Corpuscular Hemoglobin 29.8 pg (28.0-34.0); Mean Corpuscular Volume 102.7 fl (81-99); Mean Platelet Volume 10.2 fL (7.4-10.4); Monocytes # 0.4 10^3/uL (0.2-0.9); Monocytes % 6.8 %; Neutrophils # 4.33 10^3/uL (1.8-7.7); Neutrophils % 75.7 %; Nucleated Red Blood Cells % 0 %; Platelet Count 167 10^3/cmm (130-400); Red Blood Count 2.92 10^6/uL (4.1-5.3); White Blood Count 5.7 10^3/uL (4.0-10.0)
[2022-10-19 05:34] LABS: Alanine Aminotransferase 10 U/L (0-33); Albumin Level 3.4 g/dL (3.5-5.2); Alkaline Phosphatase 58 U/L (35-105); Anion Gap 14.6 (5-19); Aspartate Amino Transferase 12 U/L (0-32); Blood Urea Nitrogen 16 mg/dL (8-23); Calcium 10.5 mg/dL (8.5-10.5); Carbon Dioxide 29 mmol/L (22-29); Chloride 95 mmol/L (98-107); Globulin 2.8 g/dL (1.3-4.6); Glucose 229 mg/dL (65-115); Osmolality Calculated 288 mOsm/kg (285-295); Potassium 3.6 mmol/L (3.5-5.1); Sodium 135 mmol/L (136-145); Total Bilirubin 0.4 mg/dL (0.15-1.2); Total Protein 6.2 g/dL (6.6-8.7)
[2022-10-19] MEDS: enoxaparin 120 mg/0.8 mL Syringe 110 MG SUBCUT ×2 (05:43→17:15)
[2022-10-19] MEDS: dilTIAZem 30 mg Tablet PO ×4 (05:44→22:30)
[2022-10-19 08:37] LABS: Glucose Point of Care 277 mg/dL (70-110)
[2022-10-19] MEDS: insulin lispro 100 unit/1 mL SUBCUT ×4 (08:43→22:13)
[2022-10-19] MEDS: FUROsemide 10 mg/mL SDV 10mL 60 MG IVP ×3 (08:44→20:27)
[2022-10-19] MEDS: cholecalciferol (vitamin D3) 1,000 unit Tablet 1000 UNIT PO (08:44)
[2022-10-19] MEDS: hyDRALAzine 25 mg Tablet PO ×3 (08:45→20:23)
[2022-10-19] MEDS: cilostazol 100 mg Tablet PO (08:45)
[2022-10-19] MEDS: pantoprazole DR 40 mg Tablet PO (08:45)
[2022-10-19] MEDS: ferrous sulfate EC 325 mg Tablet PO ×3 (08:46→20:22)
[2022-10-19] MEDS: cloNIDine 0.1 mg Tablet 0.2 MG PO ×2 (08:46→20:23)
[2022-10-19] MEDS: gabapentin 100 mg Capsule PO ×3 (08:46→20:24)
[2022-10-19] MEDS: aspirin 81 mg Chew Tablet PO (08:46)
[2022-10-19] MEDS: lipase-protease-amylase Capsule 2 EACH PO ×3 (08:47→17:13)
[2022-10-19] MEDS: dorzolamide 2% Op Soln 10 mL Btl 1 DROP EYE-BOTH ×2 (09:04→20:26)
--- NOTE | 2022-10-19 09:44 | P.PN_ITS ---
Subjective Subjective: Patient still short of breath. Lasix was uptitrated. Adding metolazone today. Vitals/I&O/Wt Last Vital Signs Temp 98.2 F 10/19/22 04:00 Pulse 86 10/19/22 07:56 Resp 16 10/19/22 07:46 BP 125/92 10/19/22 08:46 Pulse Ox 96 10/19/22 07:46 O2 Del Method BiPAP 10/19/22 07:46 O2 Flow Rate 6 10/19/22 04:41 FiO2 35 10/19/22 07:46 10/18/22 10/19/22 10/19/22 22:59 06:59 14:59 Intake Total 1020 / 1310 400 / 1710 Output Total 900 / 900 1850 / 2750 Balance 120 / 410 -1450 / -1040 Weight last 48 hrs Weight 248 lb 14.4 oz Weight 248 lb Physical Exam Narrative: GENERAL: Patient is alert, awake and oriented x3. [] NECK: No jugular vein distension. [] HEENT: No cyanosis. No icterus. No pallor. [] HEART: Irregularly irregular LUNGS: Diminished air entry. CENTRAL NERVOUS SYSTEM: Grossly nonfocal. [] EXTREMITIES: Lower extremities with 1+ edema bilaterally. Data 10/20/22 04:15 10/20/22 04:15 Micro: Microbiology 10/17/22 18:27 Bacterial Antigens - Final Urine,Voided A&P Assessment and plan (1) NSTEMI (non-ST elevated myocardial infarction): (2) Atrial fibrillation: (3) Pneumonia: (4) Mitral stenosis: (5) HTN (hypertension): (6) Pulmonary edema: Qualifiers: Chronicity: acute Qualified Code(s): J81.0 - Acute pulmonary edema (7) Type 2 diabetes mellitus: Qualifiers: Diabetes mellitus complication status: with hyperglycemia Diabetes mellitus [facility] insulin use: with [facility] use Qualified Code(s): E11.65 - Type 2 diabetes mellitus with hyperglycemia; Z79.4 - end frazer (current) use of insulin Plan Patient's diuretics have been uptitrated. He is still volume overloaded. Lasix uptitrated to 60 mg 3 times daily. We will also add metolazone 5 mg daily Close monitoring of I&O's and renal function. Given significant troponin uptrend, she will need coronary angiogram once she is euvolemic She has mitral stenosis. There is discrepancy between the valve area by pressure half-time and mean gradient across the mitral valve. Once volume status improves, plan for JORGE. Close I&O's. Monitor renal function. Thank you for involving us with care of this patient. We will continue to follow. Please call with questions. Attestations Medical Necessity Statement*: Care expected to cross 2 midnights. 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
[2022-10-19] MEDS: metOLazone 5 MG Tablet PO (11:13)
--- NOTE | 2022-10-19 11:17 | PC.SOCIAL ---
IMM Update pg 2 of IMM updated and reviewed w/ patient. Copy provided and copy dated, initialed and placed in chart.
[2022-10-19 11:38] LABS: Glucose Point of Care 317 mg/dL (70-110)
--- NOTE | 2022-10-19 13:02 | P.PN_ITS ---
Subjective Subjective: Patient was seen and examined this morning, had to be started on p.o. Cardizem for A-fib with RVR, She was having significant desaturation yesterday CTA chest was done, continue to diurese well. Medications: Medication Review Details: Generic Name Dose Route Start Last Admin Trade Name Freq PRN Reason Stop Dose Admin Acetaminophen 650 mg 10/16/22 17:12 10/17/22 09:02 Acetaminophen 32 5 Mg Tablet PO 650 mg Q6H PRN Administration Mild/Mod Pain Or Temp >/= 101 Albuterol/Ipratrop ium 3 ml 10/16/22 20:00 10/19/22 07:44 Ipratropium-Albu terol 3 Ml Neb INHALATION 3 ml Q6H.RESP DELVIN Administration Lipase/Protease/Am ylase 2 each 10/16/22 18:00 10/19/22 11:32 Lipase-Protease- Amylase Capsule PO 2 each TIDWM DELVIN Administration Aspirin 81 mg 10/17/22 09:00 10/19/22 08:46 Aspirin 81 Mg Ch ew Tablet PO 81 mg DAILY DELVIN Administration Atorvastatin Calci um 20 mg 10/16/22 21:00 10/18/22 20:56 Atorvastatin 40 Mg Tablet PO 20 mg BEDTIME DELVIN Administration Cilostazol 100 mg 10/16/22 21:00 10/19/22 08:45 Cilostazol 100 M g Tablet PO 100 mg BID@0900,2100 DELVIN Administration Clonidine HCl 0.2 mg 10/16/22 21:00 10/19/22 08:46 Clonidine 0.1 Mg Tablet PO 0.2 mg BID@0900,2100 DELVIN Administration Clotrimazole 1 applic 10/16/22 18:00 10/19/22 10:40 Clotrimazole 1% Cream 30 Gm TOPICAL Not Given BID DELVIN Diltiazem HCl 30 mg 10/18/22 18:15 10/19/22 11:32 Diltiazem 30 Mg Tablet PO 30 mg Q6H DELVIN Administration Dorzolamide HCl 1 drop 10/16/22 21:00 10/19/22 09:04 Dorzolamide 2% O p Soln 10 Ml Btl EYE-BOTH 1 drop BID@0900,2100 DLEVIN Administration Enoxaparin Sodium 110 mg 10/17/22 06:00 10/19/22 05:43 Enoxaparin 120 M g/0.8 Ml Syringe SUBCUT 110 mg Q12H DELVIN Administration Ferrous Sulfate 325 mg 10/16/22 21:00 10/19/22 08:46 Ferrous Sulfate Ec 325 Mg Tablet PO 325 mg TID DELVIN Administration Furosemide 60 mg 10/18/22 21:00 10/19/22 08:44 Furosemide 10 Mg /Ml Sdv 10ml IVP 60 mg TID DELVIN Administration Gabapentin 100 mg 10/16/22 21:00 10/19/22 08:46 Gabapentin 100 M g Capsule PO 100 mg TID DELVIN Administration Hydralazine HCl 25 mg 10/16/22 21:00 10/19/22 08:45 Hydralazine 25 M g Tablet PO 25 mg TID DELVIN Administration Piperacillin Sod/T azobactam 50 mls @ 12.5 mls /hr 10/16/22 18:00 10/19/22 11:13 Sod 3.375 gm/ So dium Chloride IV 12.5 mls/hr Q8H DELVIN Administration Protocol Vancomycin/PEG/NAD A/Lysine/Water 1,250 mg in 250 m ls @ 200 mls/hr 10/16/22 18:30 10/18/22 18:53 Vancocin IV Infused Q24H DELVIN Infusion Insulin Glargine 30 unit 10/17/22 21:00 10/18/22 21:48 Insulin Glargine 100 Units/1 Ml SUBCUT 30 unit BEDTIME DELVIN Administration Insulin Human Lisp ro 0 unit 10/17/22 18:00 10/19/22 12:39 Insulin Lispro 1 00 Unit/1 Ml SUBCUT 12 unit WM&BEDTIME DELVIN Administration Protocol Lorazepam 1 mg 10/18/22 07:20 10/18/22 07:27 Lorazepam 2 Mg/M l Inj 1 Ml IVP 1 mg ONCE PRN Administration ANXIETY Metolazone 5 mg 10/19/22 09:55 10/19/22 11:13 Metolazone 5 Mg Tablet PO 5 mg DAILY DELVIN Administration Pantoprazole Sodiu m 40 mg 10/17/22 09:00 10/19/22 08:[address] 40 Mg Tablet PO 40 mg DAILY DELVIN Administration Vitamin D 1,000 unit 10/17/22 09:00 10/19/22 08:44 Cholecalciferol (Vitamin D3) 1,000 Unit Tablet PO 1,000 unit DAILY DELVIN Administration Vitals/I&O/Wt Last Vital Signs Temp 98.7 F 10/19/22 10:42 Pulse 84 10/19/22 10:42 Resp 15 10/19/22 10:42 BP 125/92 10/19/22 10:42 Pulse Ox 96 10/19/22 10:42 O2 Del Method BiPAP 10/19/22 10:42 O2 Flow Rate 6 10/19/22 04:41 FiO2 35 10/19/22 10:42 10/18/22 10/19/22 10/19/22 22:59 06:59 14:59 Intake Total 1020 / 1310 400 / 1710 472 / 472 Output Total 900 / 900 1850 / 2750 Balance 120 / 410 -1450 / -1040 472 / 472 Weight last 48 hrs Weight 112.899 kg Weight 112.491 kg Physical Exam Const: COMMON NORMALS: patient oriented x3 HENMT: COMMON NORMALS: normocephalic and atraumatic HEAD & SCALP: normocephalic and atraumatic Resp: COMMON NORMALS: clear to auscultation bilaterally AUSCULTATION: clear to auscultation bilaterally OTHER: Diminished air entry bilaterally, bilateral basal crackles present Cardio: COMMON NORMALS: No rub (Cardio) and Peripheral pulses 2+ throughout PERIPHERAL PULSES: Peripheral pulses 2+ throughout OTHER: Irregularly irregular rhythm S1-S2 variable intensity GI: COMMON NORMALS: Normal to inspection, nondistended, normoactive bowel sounds present, Soft to palpation, non-tender, No hepatosplenomegaly present and no masses AUSCULTATION: Yes normoactive bowel sounds PALPATION: Yes Soft to palpation and Yes No hepatosplenomegaly present RECTAL EXAM: deferred Extremity: COMMON NORMALS: no clubbing, cyanosis or edema and no pedal edema Neuro: COMMON NORMALS: patient oriented x3 Data 10/19/22 04:27 10/19/22 04:27 Micro: Microbiology 10/17/22 18:27 Bacterial Antigens - Final Urine,Voided A&P Assessment and plan (1) Atrial fibrillation: (2) NSTEMI (non-ST elevated myocardial infarction): (3) Pleural effusion: (4) Mitral stenosis: (5) HTN (hypertension): (6) Acute diastolic CHF (congestive heart failure): (7) Type 2 diabetes mellitus: Qualifiers: Diabetes mellitus complication status: with hyperglycemia 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 Assessment: NSTEMI: EKG atrial fibrillation. Troponin trend: 108-147 -6H troponin is pending. Follow 2D echo: Normal LV size and systolic function with EF of 64%, no RWMA Currently on ACS protocol (on therapeutic anticoagulation with Lovenox, statin, aspirin) Continue telemetry monitoring Cardiology consult Decompensated heart failure with preserved ejection fraction: Patient has bilateral pleural effusion, worsening shortness of breath, orthopnea Continue Lasix 60 IV BID daily Metolazone 5 mg p.o. daily Monitor intake and output charting Monitor daily weight Telemetry monitoring Possible underlying pneumonia: The clinical suspicion is low. X-ray chest: patchy opacity involving the right lung base up to the hilar level with similar right perihilar change. The opacity is greatest in the lower base which is probably due to pleural effusion There is retrocardiac medial left basal opacity in addition to blunting of the costophrenic angle indicating small effusion. CT angio chest : ?Negative for pulmonary embolus.Moderate bilateral pleural effusions.Patchy bilateral dependent airspace infiltrates.?Enlarged right hilar 2.8 cm lymph node with scattered prominent additional subcentimeter lymph nodes throughout the mediastinum, nonspecific. Follow sputum Gram stain and culture. Blood culture:NTD Urine Legionella antigen: Negative Bacterial antigen panel: MRSA PCR : Negative Influenza and rapid COVID is negative Empirically on broad-spectrum antibiotic Vanco and Zosyn DuoNebs Supplemental oxygen as needed History of COPD on 2 L home oxygen: Plan as above Severe pulmonary hypertension: Pulmonary artery peak systolic pressure 73 mmHg. Pulmonary follow-up as outpatient History of diabetes: Continue sliding scale insulin, monitor fingerstick glucose History of atrial fibrillation: Currently on Cardizem 30 mg p.o. every 6H On therapeutic anticoagulation with Lovenox. We will switch to p.o. anticoagulation on discharge History of hypertension: Continue clonidine and hydralazine Mild mitral stenosis: Mitral valve mean gradient is 12.8,?mmHg.? The mitral valve area by pressure half-time is 2.14 cm squared.? Peak velocity across the mitral valve was 2.95 m/s. Cardiology on board Left lower quadrant abdominal pain: CT abdomen and pelvis showed: No acute intra abdominal or pelvic pathology. Monitor for now CODE STATUS:AND DVT prophylaxis not needed on therapeutic anticoagulation with Lovenox Attestations Medical Necessity Statement*: Patient is to be in hospital for management of NSTEMI, heart failure. 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
[2022-10-19 16:56] LABS: Glucose Point of Care 253 mg/dL (70-110)
[2022-10-19] MEDS: clotrimazole 1% cream 30 gm 1 APPLIC TOPICAL (17:15)
[2022-10-19 18:35] LABS: Vancomycin Trough 15.6 ug/mL (10-15)
[2022-10-19] MEDS: vancomycin 1,250 MG/250 ML PIGGYBACK 250 MG IV (19:22)
[2022-10-19] MEDS: atorvastatin 40 mg Tablet 20 MG PO (20:23)
[2022-10-19 21:22] LABS: Glucose Point of Care 313 mg/dL (70-110)
[2022-10-19] MEDS: insulin glargine 100 units/1 mL 30 UNIT SUBCUT (22:13)
[2022-10-20] VITALS (33 sets, daily range): BP systolic 94–166; BP diastolic 44–86; PULSE 62–135; RESP 10–39; TEMP 36.4–37.3; O2SAT 93–100
[2022-10-20] MEDS: piperacillin-tazobactam 3.375 GM in sodium chloride 0.9% (plus) 50 ML IV ×3 (01:58→17:45)
[2022-10-20] MEDS: ipratropium-albuterol 3 mL Neb INHALATION ×3 (02:26→20:35)
[2022-10-20 04:37] LABS: Basophils % 0.4 %; Eosinophils # 0.1 10^3/uL (0.0-0.8); Eosinophils % 1.3 %; Hemoglobin 8.6 g/dL (11.5-15.3); Lymphocytes # 1.1 10^3/uL (0.8-4.8); Lymphocytes % 15.8 %; Mean Corpuscular HGB Conc 30.7 g/dL (30.0-36.0); Mean Corpuscular Hemoglobin 29.8 pg (28.0-34.0); Mean Corpuscular Volume 96.9 fl (81-99); Monocytes # 0.5 10^3/uL (0.2-0.9); Monocytes % 7.2 %; Neutrophils # 5.11 10^3/uL (1.8-7.7); Nucleated Red Blood Cells % 0 %; Platelet Count 162 10^3/cmm (130-400); Red Blood Count 2.89 10^6/uL (4.1-5.3); White Blood Count 6.8 10^3/uL (4.0-10.0)
[2022-10-20 05:00] LABS: Alanine Aminotransferase 8 U/L (0-33); Albumin Level 3.4 g/dL (3.5-5.2); Alkaline Phosphatase 54 U/L (35-105); Aspartate Amino Transferase 10 U/L (0-32); Blood Urea Nitrogen 23 mg/dL (8-23); Calcium 10.4 mg/dL (8.5-10.5); Carbon Dioxide 31 mmol/L (22-29); Chloride 92 mmol/L (98-107); Globulin 2.7 g/dL (1.3-4.6); Glucose 146 mg/dL (65-115); Osmolality Calculated 284 mOsm/kg (285-295); Sodium 134 mmol/L (136-145); Total Bilirubin 0.4 mg/dL (0.15-1.2); Total Protein 6.1 g/dL (6.6-8.7)
[2022-10-20] MEDS: enoxaparin 120 mg/0.8 mL Syringe 110 MG SUBCUT ×2 (05:31→17:43)
[2022-10-20] MEDS: dilTIAZem 30 mg Tablet PO ×3 (05:31→17:45)
[2022-10-20 06:59] LABS: Glucose Point of Care 279 mg/dL (70-110)
--- NOTE | 2022-10-20 07:00 | PC.NURSE ---
Arrythmia w/rvr this morning During shift change, pt has been having sustained HR-upper 120s to 140s, afib with RVR/ svt. pt reports of increased SOB, potassium level- 3.0, creatinine increased to 1.6. Dr Londono notified. Received telephone orders- IV 40 meq potassium now, amiodarone 150 mg IV bolus and Amio drip per protocol. Hold metolazone and Iv diuretic per verbal orders of Dr Edwards and Dr Londono.
--- NOTE | 2022-10-20 07:13 | PC.NURSE ---
Notified MD of K 3.0 and Cr 1.6, no new orders received, pt back in afib ranging appx. 100-130, has been NSR most of the night, one episode tachycardia in 150's that resolved quickly with PO cardizem
[2022-10-20] MEDS: lidocaine 1% 5 ML in potassium chloride premix 100 ML 26.25 ML IV (07:35)
--- NOTE | 2022-10-20 07:38 | P.PN_ITS ---
Subjective Subjective: Patient went in afib with RVR and was started on amiodarone gtt. Heart rate is controlled now. Has worsening renal function Vitals/I&O/Wt Last Vital Signs Temp 98.2 F 10/20/22 07:30 Pulse 120 H 10/20/22 07:30 Resp 26 H 10/20/22 07:30 BP 138/86 10/20/22 07:30 Pulse Ox 96 10/20/22 07:30 O2 Del Method Oxymask 10/20/22 07:30 O2 Flow Rate 6 10/20/22 07:30 FiO2 35 10/20/22 02:31 10/19/22 10/20/22 10/20/22 22:59 06:59 14:59 Intake Total 836 / 1544 450 / 1994 Output Total 850 / 1500 900 / 2400 Balance - -450 / -406 Weight last 48 hrs Weight 249 lb 3.2 oz Weight 248 lb 14.4 oz Physical Exam Narrative: GENERAL: Patient is alert, awake and oriented x3. [] NECK: No jugular vein distension. [] HEENT: No cyanosis. No icterus. No pallor. [] HEART: Irregularly irregular LUNGS: Diminished air entry. CENTRAL NERVOUS SYSTEM: Grossly nonfocal. [] EXTREMITIES: Lower extremities with 1+ edema bilaterally. Data 10/21/22 04:25 10/21/22 04:25 A&P Assessment and plan (1) NSTEMI (non-ST elevated myocardial infarction): (2) Atrial fibrillation: (3) Pneumonia: (4) Mitral stenosis: (5) HTN (hypertension): (6) Pulmonary edema: Qualifiers: Chronicity: acute Qualified Code(s): J81.0 - Acute pulmonary edema (7) Type 2 diabetes mellitus: Qualifiers: Diabetes mellitus complication status: with hyperglycemia Diabetes mellitus terminal clerk insulin use: with retirement use Qualified Code(s): E11.65 - Type 2 diabetes mellitus with hyperglycemia; Z79.4 - halfway (current) use of insulin Plan Renal function worsening. We will hold metolazone. Lasix downtitrated. Monitor renal function. We will need to assess timing of coronary angiogram. She has mitral stenosis. There is discrepancy between the valve area by pressure half-time and mean gradient across the mitral valve. Once volume status improves, can consider JORGE. Close I&O's. Thank you for involving us with care of this patient. We will continue to follow. Please call with questions. Attestations Medical Necessity Statement*: Care expected to cross 2 midnights. Coding Level of Care Code Acute Code for [facility] Diagnoses NSTEMI (non-ST elevated myocardial infarction) I21.4 Atrial fibrillation I48.91 Pneumonia J18.9 Mitral stenosis I05.0 HTN (hypertension) I10 Pulmonary edema J81.0 Chronicity: acute Type 2 diabetes mellitus E11.65; Z79.4 Diabetes mellitus complication status: with hyperglycemia Diabetes mellitus terminal clerk insulin use: with retirement use
[2022-10-20] MEDS: insulin lispro 100 unit/1 mL SUBCUT ×4 (08:20→22:06)
[2022-10-20] MEDS: cloNIDine 0.1 mg Tablet 0.2 MG PO ×2 (08:21→21:34)
[2022-10-20] MEDS: aspirin 81 mg Chew Tablet PO (08:21)
[2022-10-20] MEDS: hyDRALAzine 25 mg Tablet PO ×2 (08:21→21:34)
[2022-10-20] MEDS: cholecalciferol (vitamin D3) 1,000 unit Tablet 1000 UNIT PO (08:21)
[2022-10-20] MEDS: ferrous sulfate EC 325 mg Tablet PO ×3 (08:22→21:34)
[2022-10-20] MEDS: gabapentin 100 mg Capsule PO ×3 (08:22→21:34)
[2022-10-20] MEDS: pantoprazole DR 40 mg Tablet PO (08:22)
[2022-10-20] MEDS: lipase-protease-amylase Capsule 2 EACH PO ×3 (08:30→17:44)
[2022-10-20] MEDS: dorzolamide 2% Op Soln 10 mL Btl 1 DROP EYE-BOTH ×2 (08:30→21:33)
--- NOTE | 2022-10-20 10:31 | PM.PN ---
Subjective Subjective: Patient was seen and examined this morning, still on BiPAP, serum creatinine has trended up to 1.6, went into A-fib with RVR this morning again, had to be started on amnio drip, p.o. Cardizem has been uptitrated. Medications: Medication Review Details: Generic Name Dose Route Start Last Admin Trade Name Freq PRN Reason Stop Dose Admin Acetaminophen 650 mg 10/16/22 17:12 10/17/22 09:02 Acetaminophen 32 5 Mg Tablet PO 650 mg Q6H PRN Administration Mild/Mod Pain Or Temp >/= 101 Albuterol/Ipratrop ium 3 ml 10/16/22 20:00 10/20/22 09:36 Ipratropium-Albu terol 3 Ml Neb INHALATION Not Given Q6H.RESP DELVIN Lipase/Protease/Am ylase 2 each 10/16/22 18:00 10/20/22 08:30 Lipase-Protease- Amylase Capsule PO 2 each TIDWM DELVIN Administration Aspirin 81 mg 10/17/22 09:00 10/20/22 08:21 Aspirin 81 Mg Ch ew Tablet PO 81 mg DAILY DELVIN Administration Atorvastatin Calci um 20 mg 10/16/22 21:00 10/19/22 20:23 Atorvastatin 40 Mg Tablet PO 20 mg BEDTIME DELVIN Administration Cilostazol 100 mg 10/16/22 21:00 10/19/22 08:45 Cilostazol 100 M g Tablet PO 100 mg BID@0900,2100 DELVIN Administration Clonidine HCl 0.2 mg 10/16/22 21:00 10/20/22 08:21 Clonidine 0.1 Mg Tablet PO 0.2 mg BID@0900,2100 DELVIN Administration Clotrimazole 1 applic 10/16/22 18:00 10/19/22 17:15 Clotrimazole 1% Cream 30 Gm TOPICAL 1 applic BID DELVIN Administration Dorzolamide HCl 1 drop 10/16/22 21:00 10/20/22 08:30 Dorzolamide 2% O p Soln 10 Ml Btl EYE-BOTH 1 drop BID@0900,2100 DELVIN Administration Enoxaparin Sodium 110 mg 10/17/22 06:00 10/20/22 05:31 Enoxaparin 120 M g/0.8 Ml Syringe SUBCUT 110 mg Q12H DELVIN Administration Ferrous Sulfate 325 mg 10/16/22 21:00 10/20/22 08:22 Ferrous Sulfate Ec 325 Mg Tablet PO 325 mg TID DELVIN Administration Gabapentin 100 mg 10/16/22 21:00 10/20/22 08:22 Gabapentin 100 M g Capsule PO 100 mg TID DELVIN Administration Hydralazine HCl 25 mg 10/16/22 21:00 10/20/22 08:21 Hydralazine 25 M g Tablet PO 25 mg TID DELVIN Administration Piperacillin Sod/T azobactam 50 mls @ 12.5 mls /hr 10/16/22 18:00 10/20/22 07:00 Sod 3.375 gm/ So dium Chloride IV Infused Q8H DELVIN Infusion Protocol Lidocaine HCl 5 ml / Potassium 105 mls @ 26.25 m ls/hr 10/20/22 07:16 10/20/22 07:35 Chloride IV 10/20/22 11:15 26.25 mls/hr ONCE ONE Administration Amiodarone HCl 900 mg/ 518 mls @ 0 mls/h r 10/20/22 07:30 10/20/22 08:29 Dextrose/ IV Misce llaneous IV 1 mg/min Supplies .Q0M DELVIN 34.53 mls/hr Administration Protocol Per Protocol Insulin Glargine 30 unit 10/17/22 21:00 10/19/22 22:13 Insulin Glargine 100 Units/1 Ml SUBCUT 30 unit BEDTIME DELVIN Administration Insulin Human Lisp ro 0 unit 10/17/22 18:00 10/20/22 08:20 Insulin Lispro 1 00 Unit/1 Ml SUBCUT 10 unit WM&BEDTIME DELVIN Administration Protocol Lorazepam 1 mg 10/18/22 07:20 10/18/22 07:27 Lorazepam 2 Mg/M l Inj 1 Ml IVP 1 mg ONCE PRN Administration ANXIETY Metolazone 5 mg 10/19/22 09:55 10/19/22 11:13 Metolazone 5 Mg Tablet PO 5 mg DAILY DELVIN Administration Pantoprazole Sodiu m 40 mg 10/17/22 09:00 10/20/22 08:[address] 40 Mg Tablet PO 40 mg DAILY DELVIN Administration Vitamin D 1,000 unit 10/17/22 09:00 10/20/22 08:21 Cholecalciferol (Vitamin D3) 1,000 Unit Tablet PO 1,000 unit DAILY DELVIN Administration Vitals/I&O/Wt Last Vital Signs Temp 98.2 F 10/20/22 07:30 Pulse 129 H 10/20/22 09:37 Resp 22 H 10/20/22 08:00 BP 161/74 10/20/22 08:21 Pulse Ox 95 10/20/22 09:37 O2 Del Method Oxymask 10/20/22 08:00 O2 Flow Rate 6 10/20/22 07:30 FiO2 35 10/20/22 09:37 10/19/22 10/20/22 10/20/22 22:59 06:59 14:59 Intake Total 836 / 1544 450 / 1994 393 / 393 Output Total 850 / 1500 900 / 2400 Balance - -450 / -406 393 / 393 Weight last 48 hrs Weight 113.035 kg Weight 112.899 kg Physical Exam Const: COMMON NORMALS: patient oriented x3 HENMT: COMMON NORMALS: normocephalic and atraumatic HEAD & SCALP: normocephalic and atraumatic Resp: OTHER: Diminished air entry bilaterally, bilateral basal crackles present Cardio: COMMON NORMALS: No rub (Cardio) and Peripheral pulses 2+ throughout PERIPHERAL PULSES: Peripheral pulses 2+ throughout OTHER: Irregularly irregular rhythm S1-S2 variable intensity GI: COMMON NORMALS: Normal to inspection, nondistended, normoactive bowel sounds present, Soft to palpation, non-tender, No hepatosplenomegaly present and no masses AUSCULTATION: Yes normoactive bowel sounds PALPATION: Yes Soft to palpation and Yes No hepatosplenomegaly present RECTAL EXAM: deferred Extremity: COMMON NORMALS: no clubbing, cyanosis or edema and no pedal edema Neuro: COMMON NORMALS: patient oriented x3 Data 10/20/22 04:15 10/20/22 04:15 A&P Assessment and plan (1) Atrial fibrillation: (2) NSTEMI (non-ST elevated myocardial infarction): (3) Pleural effusion: (4) Mitral stenosis: (5) HTN (hypertension): (6) Acute diastolic CHF (congestive heart failure): (7) Type 2 diabetes mellitus: Qualifiers: Diabetes mellitus complication status: with hyperglycemia Diabetes mellitus penitentiary insulin use: with penitentiary use Qualified Code(s): E11.65 - Type 2 diabetes mellitus with hyperglycemia; Z79.4 - group home (current) use of insulin (8) Pneumonia: Plan Beth Winkler is a 82 year old female with PMH of COPD on 2 Ls oxygen at home, DM, PVD, HFpEF,?atrial fibrillation, was brought in today with chief complaint of acute onset of left lower quadrant abdominal pain, associated with some nausea no vomiting, she was also complaining of worsening shortness of breath, orthopnea going on for the last few days, she denied any fever chills cough, chest pain, vomiting. Assessment: NSTEMI: EKG atrial fibrillation. Troponin trend: 108-147 -6H troponin is pending. Follow 2D echo: Normal LV size and systolic function with EF of 64%, no RWMA Currently on ACS protocol (on therapeutic anticoagulation with Lovenox, statin, aspirin) Continue telemetry monitoring Cardiology consult Decompensated heart failure with preserved ejection fraction: Patient has bilateral pleural effusion, worsening shortness of breath, orthopnea Initially she was on Lasix 60 IV TID as well as metolazone was added later. IV and p.o. diuresis has been kept on hold today Given worsening of serum creatinine. Monitor intake and output charting Monitor daily weight Telemetry monitoring Possible underlying pneumonia: The clinical suspicion is low. X-ray chest: patchy opacity involving the right lung base up to the hilar level with similar right perihilar change. The opacity is greatest in the lower base which is probably due to pleural effusion There is retrocardiac medial left basal opacity in addition to blunting of the costophrenic angle indicating small effusion. CT angio chest : ?Negative for pulmonary embolus.Moderate bilateral pleural effusions.Patchy bilateral dependent airspace infiltrates.?Enlarged right hilar 2.8 cm lymph node with scattered prominent additional subcentimeter lymph nodes throughout the mediastinum, nonspecific. Follow sputum Gram stain and culture. Blood culture:NTD Urine Legionella antigen: Negative Bacterial antigen panel: MRSA PCR : Negative Influenza and rapid COVID is negative Empirically on broad-spectrum antibiotic Vanco and Zosyn DuoNebs Supplemental oxygen as needed History of COPD on 2 L home oxygen: Plan as above MATTIE on CKD: Possibly secondary to aggressive diuresis Baseline serum creatinine is around 0.6-1 Current serum creatinine 1.6 Monitor BMP for now Monitor intake output charting Diuresis on hold Severe pulmonary hypertension: Pulmonary artery peak systolic pressure 73 mmHg. Pulmonary follow-up as outpatient History of diabetes: Continue sliding scale insulin, monitor fingerstick glucose History of atrial fibrillation: Patient is intermittently going into A-fib with RVR Will start her on amnio drip On Cardizem 60 mg p.o. every 6H On therapeutic anticoagulation with Lovenox. We will switch to p.o. anticoagulation on discharge History of hypertension: Continue clonidine and hydralazine Mild mitral stenosis: Mitral valve mean gradient is 12.8,?mmHg.? The mitral valve area by pressure half-time is 2.14 cm squared.? Peak velocity across the mitral valve was 2.95 m/s. Cardiology on board Left lower quadrant abdominal pain: CT abdomen and pelvis showed: No acute intra abdominal or pelvic pathology. Monitor for now CODE STATUS:AND DVT prophylaxis not needed on therapeutic anticoagulation with Lovenox Attestations Medical Necessity Statement*: Needs to be in hospital for the management NSTEMI, decompensated heart failure Coding Level of Care Code 04401 Diagnoses Atrial fibrillation I48.91 NSTEMI (non-ST elevated myocardial infarction) I21.4 Pleural effusion J90 Mitral stenosis I05.0 HTN (hypertension) I10 Acute diastolic CHF (congestive heart failure) I50.31 Type 2 diabetes mellitus E11.65; Z79.4 Diabetes mellitus complication status: with hyperglycemia Diabetes mellitus penitentiary insulin use: with termite control representative use Pneumonia J18.9
[2022-10-20 12:08] LABS: Glucose Point of Care 361 mg/dL (70-110)
[2022-10-20] MEDS: acetaminophen 325 mg Tablet 650 MG PO (12:20)
--- NOTE | 2022-10-20 13:42 | PC.NURSE ---
1330 pm pt converted to SR HR- 70s. Amio drip 1 mg/min still running per protocol
[2022-10-20 16:53] LABS: Glucose Point of Care 373 mg/dL (70-110)
[2022-10-20] MEDS: clotrimazole 1% cream 30 gm 1 APPLIC TOPICAL (17:44)
--- NOTE | 2022-10-20 19:56 | PC.NURSE ---
updated family mem pt okay to update and give info to her dgtr Kylee Winkler.
[2022-10-20] MEDS: atorvastatin 40 mg Tablet 20 MG PO (21:33)
[2022-10-20 21:51] LABS: Glucose Point of Care 318 mg/dL (70-110)
[2022-10-20] MEDS: insulin glargine 100 units/1 mL 30 UNIT SUBCUT (22:06)
[2022-10-21] VITALS (34 sets, daily range): BP systolic 120–164; BP diastolic 44–74; PULSE 61–82; RESP 13–30; TEMP 36.4–36.7; O2SAT 86–100
[2022-10-21] MEDS: dilTIAZem 30 mg Tablet PO ×4 (01:12→18:07)
[2022-10-21] MEDS: piperacillin-tazobactam 3.375 GM in sodium chloride 0.9% (plus) 50 ML IV ×2 (01:12→10:30)
[2022-10-21] MEDS: ipratropium-albuterol 3 mL Neb INHALATION ×4 (02:16→19:04)
[2022-10-21 05:21] LABS: Basophils % 0.2 %; Eosinophils # 0.1 10^3/uL (0.0-0.8); Eosinophils % 1.4 %; Hematocrit 26.8 % (37.0-47.0); Hemoglobin 8.2 g/dL (11.5-15.3); Lymphocytes % 11.4 %; Mean Corpuscular HGB Conc 30.6 g/dL (30.0-36.0); Mean Corpuscular Hemoglobin 29.8 pg (28.0-34.0); Mean Corpuscular Volume 97.5 fl (81-99); Mean Platelet Volume 10.6 fL (7.4-10.4); Monocytes # 0.6 10^3/uL (0.2-0.9); Monocytes % 7.7 %; Neutrophils # 6.56 10^3/uL (1.8-7.7); Neutrophils % 79.1 %; Nucleated Red Blood Cells % 0 %; Platelet Count 155 10^3/cmm (130-400); Red Blood Count 2.75 10^6/uL (4.1-5.3); White Blood Count 8.3 10^3/uL (4.0-10.0)
[2022-10-21 05:40] LABS: Alanine Aminotransferase 10 U/L (0-33); Albumin Level 3.4 g/dL (3.5-5.2); Alkaline Phosphatase 59 U/L (35-105); Anion Gap 13.5 (5-19); Aspartate Amino Transferase 11 U/L (0-32); Blood Urea Nitrogen 30 mg/dL (8-23); Carbon Dioxide 32 mmol/L (22-29); Chloride 90 mmol/L (98-107); Globulin 2.6 g/dL (1.3-4.6); Glucose 188 mg/dL (65-115); Osmolality Calculated 285 mOsm/kg (285-295); Potassium 3.5 mmol/L (3.5-5.1); Sodium 132 mmol/L (136-145); Total Bilirubin 0.3 mg/dL (0.15-1.2)
[2022-10-21] MEDS: acetaminophen 325 mg Tablet 650 MG PO ×3 (06:07→22:19)
[2022-10-21] MEDS: enoxaparin 120 mg/0.8 mL Syringe 110 MG SUBCUT (06:08)
[2022-10-21] MEDS: FUROsemide 10 mg/mL SDV 4mL 40 MG IVP (06:08)
[2022-10-21 06:43] LABS: Glucose Point of Care 190 mg/dL (70-110)
[2022-10-21] MEDS: hyDRALAzine 25 mg Tablet PO ×3 (08:41→22:02)
[2022-10-21] MEDS: cholecalciferol (vitamin D3) 1,000 unit Tablet 1000 UNIT PO (08:43)
[2022-10-21] MEDS: gabapentin 100 mg Capsule PO ×3 (08:43→22:02)
[2022-10-21] MEDS: ferrous sulfate EC 325 mg Tablet PO ×3 (08:43→22:01)
[2022-10-21] MEDS: aspirin 81 mg Chew Tablet PO (08:44)
[2022-10-21] MEDS: insulin lispro 100 unit/1 mL SUBCUT ×4 (08:44→22:04)
[2022-10-21] MEDS: pantoprazole DR 40 mg Tablet PO (08:44)
[2022-10-21] MEDS: lipase-protease-amylase Capsule 2 EACH PO ×3 (08:50→18:06)
[2022-10-21] MEDS: clotrimazole 1% cream 30 gm 1 APPLIC TOPICAL ×2 (08:50→18:06)
[2022-10-21] MEDS: dorzolamide 2% Op Soln 10 mL Btl 1 DROP EYE-BOTH ×2 (08:51→22:03)
[2022-10-21] MEDS: cloNIDine 0.1 mg Tablet 0.2 MG PO (08:51)
[2022-10-21] MEDS: amiodarone 200 mg Tablet 400 MG PO ×2 (09:00→18:07)
--- NOTE | 2022-10-21 09:01 | PC.NURSE ---
Dr. Zhang to see patient. Updated on patient condition. New orders noted and implemented. Will continue to monitor.
--- NOTE | 2022-10-21 09:22 | P.PN_ITS ---
Subjective Subjective: Patient has some shortness of breath. Renal function is worsening. This is consistent with BLANCO has had CTA done. Vitals/I&O/Wt Last Vital Signs Temp 97.6 F 10/21/22 04:00 Pulse 73 10/21/22 08:21 Resp 18 10/21/22 08:00 BP 164/47 10/21/22 08:51 Pulse Ox 94 10/21/22 08:00 O2 Del Method Nasal Cannula 10/21/22 08:00 O2 Flow Rate 4 10/21/22 08:00 FiO2 35 10/21/22 02:22 10/20/22 10/21/22 10/21/22 22:59 06:59 14:59 Intake Total 440 / 1476.388 50 / 1526.388 250 / 250 Output Total 700 / 700 Balance -260 / 776.388 50 / 826.388 250 / 250 Weight last 48 hrs Weight 249 lb 3.2 oz Physical Exam Narrative: GENERAL: Patient is alert, awake and oriented x3. [] NECK: No jugular vein distension. [] HEENT: No cyanosis. No icterus. No pallor. [] HEART: Irregularly irregular LUNGS: Diminished air entry. CENTRAL NERVOUS SYSTEM: Grossly nonfocal. [] EXTREMITIES: Lower extremities with 1+ edema bilaterally. Urinary Catheter Management: Bocangera: Cath Placed During This Visit: no Reason for Continuing Indwelling Catheter: Other Data 10/22/22 09:18 10/22/22 09:18 A&P Assessment and plan (1) NSTEMI (non-ST elevated myocardial infarction): (2) Atrial fibrillation: (3) Pneumonia: (4) Mitral stenosis: (5) HTN (hypertension): (6) Pulmonary edema: Qualifiers: Chronicity: acute Qualified Code(s): J81.0 - Acute pulmonary edema (7) Type 2 diabetes mellitus: Qualifiers: Diabetes mellitus complication status: with hyperglycemia Diabetes mellitus [facility] insulin use: with truck terminal manager use Qualified Code(s): E11.65 - Type 2 diabetes mellitus with hyperglycemia; Z79.4 - intermediate (current) use of insulin Plan Renal function continues to worsen. Holding diuresis. Likely BLANCO secondary to CTA performed a few days back. We will hold off on coronary angiogram. Current stress test once able to. Medical therapy for now. She has mitral stenosis. There is discrepancy between the valve area by pressure half-time and mean gradient across the mitral valve. Can consider JORGE as outpatient.. Close I&O's. Thank you for involving us with care of this patient. We will continue to follow. Please call with questions. Attestations Medical Necessity Statement*: Care expected to cross 2 midnights. Coding Level of Care Code Acute Code for [facility] Diagnoses NSTEMI (non-ST elevated myocardial infarction) I21.4 Atrial fibrillation I48.91 Pneumonia J18.9 Mitral stenosis I05.0 HTN (hypertension) I10 Pulmonary edema J81.0 Chronicity: acute Type 2 diabetes mellitus E11.65; Z79.4 Diabetes mellitus complication status: with hyperglycemia Diabetes mellitus truck terminal manager insulin use: with [facility] use
[2022-10-21 11:30] LABS: Glucose Point of Care 318 mg/dL (70-110)
--- NOTE | 2022-10-21 16:38 | PM.PN ---
Subjective Subjective: Creatinine worsened today at 2.4. Diuresis continues to be on hold. Urine output 150 cc over last 24 hours. Amiodarone has been started orally at 400 p.o. twice daily Medications: Reviewed: Yes Vitals/I&O/Wt Last Vital Signs Temp 97.6 F 10/21/22 04:00 Pulse 66 10/21/22 14:37 Resp 20 H 10/21/22 14:37 BP 120/53 10/21/22 14:37 Pulse Ox 99 10/21/22 14:37 O2 Del Method BiPAP 10/21/22 14:37 O2 Flow Rate 4 10/21/22 08:00 FiO2 35 10/21/22 13:55 10/21/22 10/21/22 10/21/22 06:59 14:59 22:59 Intake Total 50 / 1526.388 675 / 675 Balance 50 / 826.388 675 / 675 Weight last 48 hrs Weight 113.035 kg Physical Exam Narrative: General: No acute distress, AO x3 HEENT: PERRLA, pupils bilaterally equal and reactive, pallors not present Chest: Normal vesicular breath sounds, no added sounds, equal good air entry bilaterally CVS: S1-S2 regular, no murmurs, no tachycardia, no gallops, no rubs Abdomen: Soft, nontender, no organomegaly, bowel sounds present Neuro: No focal deficits, no facial deformity, AO x3, power 5/5 in all limbs Urinary Catheter Management: Bocanegra: Cath Placed During This Visit: no Reason for Continuing Indwelling Catheter: Other Data 10/21/22 04:25 10/21/22 04:25 A&P Assessment and plan (1) Atrial fibrillation: (2) NSTEMI (non-ST elevated myocardial infarction): (3) Pleural effusion: (4) Mitral stenosis: (5) HTN (hypertension): (6) Acute diastolic CHF (congestive heart failure): (7) Type 2 diabetes mellitus: Qualifiers: Diabetes mellitus complication status: with hyperglycemia Diabetes mellitus skilled nursing insulin use: with middle or intermediate school principal use Qualified Code(s): E11.65 - Type 2 diabetes mellitus with hyperglycemia; Z79.4 - emt intermediate (current) use of insulin (8) Pneumonia: Plan Beth Winkler is a 82 year old female with PMH of COPD on 2 Ls oxygen at home, DM, PVD, HFpEF,?atrial fibrillation, was brought in on October 16, 2022 with chief complaint of acute onset of left lower quadrant abdominal pain, associated with some nausea no vomiting, she was also complaining of worsening shortness of breath, orthopnea going on for the last few days, she denied any fever chills cough, chest pain, vomiting. CT of the abdomen and pelvis was overall unremarkable. Currently being admitted and being managed for # NSTEMI: EKG atrial fibrillation. Troponin trend: 108-147 --> 162 Follow 2D echo: Normal LV size and systolic function with EF of 64%, no RWMA Currently on ACS protocol with ASA 81mg po daily, atorvastatin, lovenox 110mg q24h (renally dosed) Continue telemetry monitoring Cardiology consult appreciated unable to undego cardiac cath due to MATTIE # Decompensated heart failure with preserved ejection fraction: Patient has bilateral pleural effusion, worsening shortness of breath, orthopnea Initially she was on Lasix 60 IV TID as well as metolazone was added later. IV and p.o. diuresis has been kept on hold due to worsening renal function, cr now up to 2.4 urine output 150 cc last 24 hrs Monitor intake and output charting Monitor daily weight Telemetry monitoring Possible underlying pneumonia: The clinical suspicion is low. X-ray chest: patchy opacity involving the right lung base up to the hilar level with similar right perihilar change. The opacity is greatest in the lower base which is probably due to pleural effusion There is retrocardiac medial left basal opacity in addition to blunting of the costophrenic angle indicating small effusion. CT angio chest : ?Negative for pulmonary embolus.Moderate bilateral pleural effusions.Patchy bilateral dependent airspace infiltrates.?Enlarged right hilar 2.8 cm lymph node with scattered prominent additional subcentimeter lymph nodes throughout the mediastinum, nonspecific. She is currently on empiric piperacillin/tazobactam, completing day 6 today. We will discontinue IV antibiotics as she has completed an adequate course. Follow sputum Gram stain and culture. Blood culture:NTD Urine Legionella antigen: Negative MRSA PCR : Negative Influenza and rapid COVID is negative # MATTIE on CKD: Possibly multifactorial secondary to aggressive diuresis, contrast studies Baseline serum creatinine is around 0.6-1 Current serum creatinine 2.4, urine output following to 150 cc over last 24 hours. Diuresis currently on hold, avoid any nephrotoxic medications Consult nephrology Check urine lites, urine eosinophils. check renal US Monitor BMP for now Monitor intake output charting Diuresis on hold Severe pulmonary hypertension: Pulmonary artery peak systolic pressure 73 mmHg. Pulmonary follow-up as outpatient History of diabetes: Continue sliding scale insulin, monitor fingerstick glucose History of atrial fibrillation: Patient is intermittently going into A-fib with RVR Currently rate controlled on amiodarone 400 mg p.o. twice daily and cardizem 30 mg p.o. every 6H On therapeutic anticoagulation with Lovenox. We will switch to p.o. anticoagulation on discharge History of hypertension: Continue clonidine and hydralazine Mild mitral stenosis: Mitral valve mean gradient is 12.8,?mmHg.? The mitral valve area by pressure half-time is 2.14 cm squared.? Peak velocity across the mitral valve was 2.95 m/s. Cardiology on board Left lower quadrant abdominal pain: CT abdomen and pelvis showed: No acute intra abdominal or pelvic pathology. Monitor for now CODE STATUS:AND DVT prophylaxis not needed on therapeutic anticoagulation with Lovenox Attestations Medical Necessity Statement*: Worsening renal function, follow urine output, consult nephrology, check urine studies, continue to hold diuresis and continue to monitor respiratory status closely with these interventions. Coding Level of Care Code Acute Code for [facility] Diagnoses Atrial fibrillation I48.91 NSTEMI (non-ST elevated myocardial infarction) I21.4 Pleural effusion J90 Mitral stenosis I05.0 HTN (hypertension) I10 Acute diastolic CHF (congestive heart failure) I50.31 Type 2 diabetes mellitus E11.65; Z79.4 Diabetes mellitus complication status: with hyperglycemia Diabetes mellitus skilled nursing insulin use: with skilled nursing use Pneumonia J18.9
--- NOTE | 2022-10-21 16:49 | US_ITS ---
WS: [id number] RENAL ULTRASOUND HISTORY: evaluate for hydronephrosis COMPARISON: None available. TECHNIQUE: 2-D and color Doppler imaging of the kidney submitted. Limited by body habitus and clinical condition. Right kidney: 12.3 cm x 6.1 cm x 5.4 cm. Cortex: 1.4 cm Normal echogenicity with no hydronephrosis or mass. Left kidney: 11.5 cm x 4.7 cm x 4.8 cm. Cortex: 1.5 cm Normal echogenicity with no hydronephrosis or mass. Aorta: Not visualized. Urinary Bladder: Not visualized. Patient does have a Bocanegra catheter present. US/US renal BI* [id number] IMPRESSION: 1. No hydronephrosis or renal atrophy. Study is limited by body habitus. 2. Urinary bladder is not visualized. Patient does have a Bocanegra catheter prese nt.
--- NOTE | 2022-10-21 17:15 | PM.CONSULT ---
Providers/Reason For Consult Consulting Physician/Specialty*: dolly valiente md / telenephrology Reason for Consult*: MATTIE Requesting Physician: Bob Attending Physician: Agnes Hackett MD Primary Care Provider: Deep Angeles DO History of Present Illness History of Present Illness Beth Winkler is a 82 year old female 82 year old female with PMH of COPD on 2-3 Ls oxygen at home, DM, PVD, HFpEF,?atrial fibrillation. She was admitted on 10/16/22 with left lower quadrant abdominal pain, worsening shortness of breath, orthopnea, and palps. She was diagnosed with a fib, CHF- and started on iv lasix. she had a C w/ contrast on 10/16 and 10/18/22. She was started on vanco and zosyn. she was also diagnosed w/ severe pulm htn- and rx w/ iv lasix. Over the last few days she has had episodes of a fib w/ RVR and hypotensive episodes. her cr on 10/19/22 was 1 mg/dl, on 10/20/22 was 1.6 mg/dl, currently cr is upto 2.3 mg/dl and uop is down, renal called for MATTIE. her HR is back in NSR. She was also diagnosed w/ NSTEMI and is being seen by Cardiology, Echo w/ HFpEF and Q of MV disease. Review of Systems Narrative: weak, sob, sue, orrthopnea, abd pain improving, +CP, plaps, edema, poor appetite, weak Medications/Allergies Home Medications Medication Instructions Recorded Confirmed Last Taken Type albuterol sulfate 90 mcg/actuation 2 puff inhalation Q6H PRN 06/29/20 10/16/22 08/20/22 History aerosol inhaler Shortness Of Breath aspirin 81 mg chewable tablet 81 mg PO DAILY 06/29/20 10/16/22 10/15/22 History atorvastatin 20 mg tablet 20 mg PO BEDTIME 06/29/20 10/16/22 10/15/22 History cilostazol 100 mg tablet 100 mg PO BID 06/29/20 10/16/22 10/15/22 History fluticasone propionate 50 1 spray intranasal DAILY 06/29/20 10/16/22 10/15/22 History mcg/actuation nasal spray,suspension insulin lispro 100 unit/mL See Rx Instructions .Route .COMPLEX 06/29/20 10/16/22 08/20/22 History subcutaneous pen (Humalog KwikPen (U-100) Insulin) latanoprost 0.005 % eye drops 1 drp ophthalmic (eye) BEDTIME 06/29/20 10/16/22 10/15/22 History rlyabm-tyyvzqwc-xnyjsas 2 cap PO TID 06/29/20 10/16/22 10/15/22 History 24,000-76,000-120,000 unit capsule,delayed rel (Creon) mupirocin 2 % topical ointment 1 applic topical DAILY 06/29/20 10/16/22 Unknown History pantoprazole 40 mg tablet,delayed 40 mg PO DAILY 06/29/20 10/16/22 10/15/22 History release umeclidinium 62.5 mcg-vilanterol 2 ea inhalation DAILY 06/29/20 10/16/22 08/20/22 History 25 mcg/actuation powdr for inhalation (Anoro Ellipta) dorzolamide 2 % eye drops 1 drp ophthalmic (eye) BID 07/27/20 10/16/22 10/15/22 History ondansetron HCl 4 mg tablet 4 mg PO Q6H PRN nausea and vomiting 07/27/20 10/16/22 08/20/22 History clindamycin HCl 300 mg capsule 300 mg PO TID 11/16/20 10/16/22 10/15/22 History gabapentin 100 mg capsule 100 mg PO TID 11/16/20 10/16/22 10/15/22 History clonidine HCl 0.1 mg tablet 0.2 mg PO BID 11/15/21 10/16/22 10/15/22 History biotin 5,000 mcg sublingual tablet 5,000 mcg sublingual BID 08/20/22 10/16/22 10/15/22 History cholecalciferol (vitamin D3) 25 25 mcg PO DAILY 08/20/22 10/16/22 10/15/22 History mcg (1,000 unit) capsule (Vitamin D3) ferrous sulfate 325 mg (65 mg 325 mg PO TID 08/20/22 10/16/22 10/15/22 History iron) tablet (iron) insulin glargine U-300 conc 300 130 unit SUBCUT DAILY 08/20/22 10/16/2223 History unit/mL (1.5 mL) subcutaneous pen ([employer] U-300 Insulin) dblbkwwc-otc-drqqe ac 400 1 tab PO DAILY 08/20/22 10/16/22 10/15/22 History mcg-calcium carb 500 mg-vit K1 20 mcg tablet (Women's 50 Plus Multivitamin) clotrimazole 1 % topical cream 1 applic topical BID 4 weeks #30 08/28/22 10/16/22 10/15/22 Rx grams furosemide 40 mg tablet 60 mg PO DAILY@0800 #90 tabs 09/11/22 10/16/22 10/15/22 Rx hydralazine 25 mg tablet 25 mg PO TID #90 tabs 09/11/22 10/16/22 10/15/22 Rx adalimumab 40 mg/0.4 mL 40 mg SUBCUT Q7D 10/16/22 10/16/22 Unknown History subcutaneous pen kit (Humira(CF) Pen) albuterol sulfate 2.5 mg/3 mL 2.5 mg inhalation QID PRN 10/16/22 10/16/22 Unknown History (0.083 %) solution for nebulization Shortness Of Breath ipratropium bromide 0.02 % 2.5 ml inhalation QID PRN 10/16/22 10/16/22 Unknown History solution for inhalation Shortness Of Breath Allergies Allergy/AdvReac Type Severity Reaction Status Date / Time doxycycline Allergy Unknown Verified 09/11/22 15:59 Sulfa (Sulfonamide Allergy ALGY-Rash Verified 09/11/22 15:59 Antibiotics) Current Medications Generic Name Dose Route Start Last Admin Trade Name Freq PRN Reason Stop Dose Admin Acetaminophen 650 mg 10/16/22 17:12 10/21/22 14:01 Acetaminophen 325 Mg Tablet PO 650 mg Q6H PRN Administration Mild/Mod Pain Or Temp >/= 101 Albuterol/Ipratropium 3 ml 10/16/22 20:00 10/21/22 13:54 Ipratropium-Albuterol 3 Ml Neb INHALATION 3 ml Q6H.RESP DELVIN Administration Amiodarone HCl 400 mg 10/21/22 09:04 10/21/22 09:00 Amiodarone 200 Mg Tablet PO 400 mg BID DELVIN Administration Lipase/Protease/Amylase 2 each 10/16/22 18:00 10/21/22 12:01 Uzmfir-Gbnjaurz-Bnbedom Capsule PO 2 each TIDWM DELVIN Administration Aspirin 81 mg 10/17/22 09:00 10/21/22 08:44 Aspirin 81 Mg Chew Tablet PO 81 mg DAILY DELVIN Administration Atorvastatin Calcium 20 mg 10/16/22 21:00 10/20/22 21:33 Atorvastatin 40 Mg Tablet PO 20 mg BEDTIME DELVIN Administration Cilostazol 100 mg 10/16/22 21:00 10/19/22 08:45 Cilostazol 100 Mg Tablet PO 100 mg BID@0900,2099 [facility] Administration Clonidine HCl 0.2 mg 10/16/22 21:00 10/21/22 08:51 Clonidine 0.1 Mg Tablet PO 0.2 mg BID@0900,2099 [facility] Administration Clotrimazole 1 applic 10/16/22 18:00 10/21/22 08:50 Clotrimazole 1% Cream 30 Gm TOPICAL 1 applic BID DELVIN Administration Diltiazem HCl 30 mg 10/20/22 18:15 10/21/22 11:53 Diltiazem 30 Mg Tablet PO 30 mg Q6H [facility] Administration Dorzolamide HCl 1 drop 10/16/22 21:00 10/21/22 08:51 Dorzolamide 2% Op Soln 10 Ml Btl EYE-BOTH 1 drop BID@00,2099 [facility] Administration Ferrous Sulfate 325 mg 10/16/22 21:00 10/21/22 14:02 Ferrous Sulfate Ec 325 Mg Tablet PO 325 mg TID DELVIN Administration Furosemide 40 mg 10/21/22 07:00 10/21/22 06:08 Furosemide 10 Mg/Ml Sdv 4ml IVP 40 mg Q24H [facility]VIN Administration Gabapentin 100 mg 10/16/22 21:00 10/21/22 14:03 Gabapentin 100 Mg Capsule PO 100 mg TID [facility] Administration Hydralazine HCl 25 mg 10/16/22 21:00 10/21/22 14:03 Hydralazine 25 Mg Tablet PO 25 mg TID [facility] Administration Amiodarone HCl 900 mg/ 518 mls @ 0 mls/hr 10/20/22 07:30 10/20/22 14:45 Dextrose/ IV Miscellaneous IV 0.5 mg/min Supplies .Q0M [facility]VIN 17.27 mls/hr Titration Protocol Per Protocol Insulin Glargine 30 unit 10/17/22 21:00 10/20/22 22:06 Insulin Glargine 100 Units/1 Ml SUBCUT 30 unit BEDTIME DELVIN Administration Insulin Human Lispro 0 unit 10/17/22 18:00 10/21/22 12:43 Insulin Lispro 100 Unit/1 Ml SUBCUT 1 unit WM&BEDTIME DELVIN Administration Protocol Lorazepam 1 mg 10/18/22 07:20 10/18/22 07:27 Lorazepam 2 Mg/Ml Inj 1 Ml IVP 1 mg ONCE PRN Administration ANXIETY Metolazone 5 mg 10/19/22 09:55 10/19/22 11:13 Metolazone 5 Mg Tablet PO 5 mg DAILY [facility] Administration Pantoprazole Sodium 40 mg 10/17/22 09:00 10/21/22 08:[address] 40 Mg Tablet PO 40 mg DAILY [facility] Administration Vitamin D 1,000 unit 10/17/22 09:00 10/21/22 08:43 Cholecalciferol (Vitamin D3) 1,000 Unit Tablet PO 1,000 unit DAILY [facility] Administration PFSH Acute PFSH: Medical History Acute hypokalemia MATTIE (acute kidney injury) Anemia COPD (chronic obstructive pulmonary disease) Decubitus ulcer Diabetes Heart failure Myelodysplasia (myelodysplastic syndrome) PAD (peripheral artery disease) Pneumonia Pneumonia due to COVID-19 virus Sleep apnea Surgical History Hx of appendectomy Hx of cataract extraction Hx of section Hx of cholecystectomy Hx of hysterectomy Family History Mother CAD (coronary artery disease) Diabetes Daughter Diabetes Lung disease Suicide Son Diabetes Lung disease Denies family history of Clotting disorder Dementia Chronic kidney disease (CKD) Anesthesia complication Bleeding disorder Cancer Stroke Social History Smoking and tobacco status: former smoker (smoked x 8 years) Alcohol intake: never Lives independently: Yes Household members: other Details: Son Vitals/I&O/Wt Last Vital Signs Temp 97.6 F 10/21/22 04:00 Pulse 66 10/21/22 14:37 Resp 20 H 10/21/22 14:37 BP 120/53 10/21/22 14:37 Pulse Ox 99 10/21/22 14:37 O2 Del Method BiPAP 10/21/22 14:37 O2 Flow Rate 4 10/21/22 08:00 FiO2 35 10/21/22 13:55 10/21/22 10/21/22 10/21/22 06:59 14:59 22:59 Intake Total 50 / 1526.388 675 / 675 Balance 50 / 826.388 675 / 675 Weight last 48 hrs Weight 113.035 kg Physical Exam Narrative: uncomfortable, obeseon FM 02 vs noted heent- nc/at, eomi, anicteric neck supple lungs dull bases, wheezing, ronchi heart reg, +MICHAEL abd soft, nt, nd, + bs ext 1+ b/l leg edema neuro- a,a, o x 3 examined by RN- telehealth visit Urinary Catheter Management: Bocanegra: Cath Placed During This Visit: no Reason for Continuing Indwelling Catheter: Other Data 10/21/22 04:25 10/21/22 04:25 A&P Assessment and plan (1) MATTIE (acute kidney injury): 82 yr old female obesity, COPD, Pulm HTN, a fib, DM, home 02 dep, HFpEF, + NSTEMI. pt here w/ sob, and is DNI/ DNR 1. MATTIE- likely from diuretics and and [address] scans- recommend- repeat ua, urine lytes, ur pr cr -renal us -d/c metolazone. inc lasix as needed for SOB -support BP -maintain NSR -check vanco level. all abx have been stopped -monitro chemistries and uop dec meds- dec gabapentin and clonidine as mattie- monitor MS time spent 50+ minutes seen and examined w/ RN- telehealth visit Plan as above Consult Attestations Medical Necessity Statement: hfpef, sob, mattie, copd Time Spent in Patient Care: Greater than 35 minutes (>than 50% of time spent in counselling and/or direct pt care on unit). Coding Level of Care Code Acute Code for [facility] Diagnoses MATTIE (acute kidney injury) N17.9
[2022-10-21 17:18] LABS: Glucose Point of Care 353 mg/dL (70-110)
[2022-10-21 19:15] LABS: Blood Urea Nitrogen 34 mg/dL (8-23); Calcium 9.9 mg/dL (8.5-10.5); Carbon Dioxide 26 mmol/L (22-29); Chloride 86 mmol/L (98-107); Creatine Phosphokinase 21 U/L (26-192); Glucose 336 mg/dL (65-115); Osmolality Calculated 281 mOsm/kg (285-295); Sodium 125 mmol/L (136-145)
[2022-10-21 19:16] LABS: Uric Acid 8.2 mg/dL (2.4-5.7)
[2022-10-21 19:19] LABS: Anion Gap 17.1 (5-19); Potassium 4.1 mmol/L (3.5-5.1)
[2022-10-21 21:06] LABS: Glucose Point of Care 420 mg/dL (70-110)
[2022-10-21 21:28] LABS: Vancomycin Random 14.5 ug/mL (20.0-40.0)
[2022-10-21 21:29] LABS: Hepatitis C Virus Antibody Non-Reactive (Nonreactive)
[2022-10-21] MEDS: atorvastatin 40 mg Tablet 20 MG PO (22:02)
[2022-10-21 22:03] LABS: Potassium, Radom Urine 68 mmol/L; Urine Creatinine 102 mg/dL (28-217)
[2022-10-21] MEDS: cloNIDine 0.1 mg Tablet PO (22:03)
[2022-10-21 22:08] LABS: Urine Protein Random 45 mg/dL; Urine Random Chloride 11 mmol/L; Urine Random Sodium 16 mmol/L
[2022-10-21] MEDS: insulin glargine 100 units/1 mL 30 UNIT SUBCUT (22:20)
[2022-10-21 23:02] LABS: Eosinophil Urine No Eosinophils Seen; Urine Eosinophil Count 0 (0-0)
[2022-10-22] VITALS (18 sets, daily range): BP systolic 130–171; BP diastolic 52–88; PULSE 57–77; RESP 14–26; TEMP 36.2–36.7; O2SAT 90–100; BMI 51.0
[2022-10-22] MEDS: dilTIAZem 30 mg Tablet PO ×5 (00:41→23:51)
[2022-10-22] MEDS: ipratropium-albuterol 3 mL Neb INHALATION ×4 (04:01→20:07)
[2022-10-22] MEDS: gabapentin 100 mg Capsule PO ×2 (05:51→21:23)
[2022-10-22] MEDS: enoxaparin 120 mg/0.8 mL Syringe 110 MG SUBCUT (05:51)
[2022-10-22 06:48] LABS: Glucose Point of Care 275 mg/dL (70-110)
--- NOTE | 2022-10-22 06:58 | P.PN_ITS ---
Subjective Subjective: feels better. less sob. weak, nausea. dec pain. using fm 02 Medications: Reviewed: Yes Medication Review Details: Current Medications Acetaminophen (Acetaminophen 325 Mg Tablet) 650 mg PO Q6H PRN PRN Reason: Mild/Mod Pain Or Temp >/= 101 Last Admin: 10/21/22 22:19 Dose: 650 mg Albuterol/Ipratropium (Ipratropium-Albuterol 3 Ml Neb) 3 ml INHALATION Q6H.RESP [facility] Last Admin: 10/22/22 04:01 Dose: 3 ml Amiodarone HCl (Amiodarone 200 Mg Tablet) 400 mg PO BID [facility] Last Admin: 10/21/22 18:07 Dose: 400 mg Lipase/Protease/Amylase (Pgtfru-Fsprywqf-Myyamjm Capsule) 2 each PO TIDWM [facility] Last Admin: 10/21/22 18:06 Dose: 2 each Aspirin (Aspirin 81 Mg Chew Tablet) 81 mg PO DAILY [facility] Last Admin: 10/21/22 08:44 Dose: 81 mg Atorvastatin Calcium (Atorvastatin 40 Mg Tablet) 20 mg PO BEDTIME [facility] Last Admin: 10/21/22 22:02 Dose: 20 mg Bisacodyl (Bisacodyl 5 Mg Tablet) 10 mg PO DAILY PRN; Protocol PRN Reason: Constipation (see protocol) Cilostazol (Cilostazol 100 Mg Tablet) 100 mg PO BID@0900,2100 [facility] Last Admin: 10/19/22 08:45 Dose: 100 mg Clonidine HCl (Clonidine 0.1 Mg Tablet) 0.1 mg PO BID@0900,2100 [facility] Last Admin: 10/21/22 22:03 Dose: 0.1 mg Clotrimazole (Clotrimazole 1% Cream 30 Gm) 1 applic TOPICAL BID [facility] Last Admin: 10/21/22 18:06 Dose: 1 applic Dextrose (Dextrose 50% Syringe 50 Ml) 50 ml IVP PRN PRN; Protocol PRN Reason: hypoglycemia protocol Dextrose (Dextrose 50% Syringe 50 Ml) 25 ml IVP ONCE PRN; Protocol PRN Reason: hypoglycemia protocol Diltiazem HCl (Diltiazem 30 Mg Tablet) 30 mg PO Q6H [facility] Last Admin: 10/22/22 05:50 Dose: 30 mg Dorzolamide HCl (Dorzolamide 2% Op Soln 10 Ml Btl) 1 drop EYE-BOTH BID@0900,2100 [facility] Last Admin: 10/21/22 22:03 Dose: 1 drop Enoxaparin Sodium (Enoxaparin 120 Mg/0.8 Ml Syringe) 110 mg SUBCUT Q24H [facility] Last Admin: 10/22/22 05:51 Dose: 110 mg Ferrous Sulfate (Ferrous Sulfate Ec 325 Mg Tablet) 325 mg PO TID [facility] Last Admin: 10/21/22 22:01 Dose: 325 mg Furosemide (Furosemide 10 Mg/Ml Sdv 4ml) 40 mg IVP Q24H [facility] Last Admin: 10/21/22 06:08 Dose: 40 mg Gabapentin (Gabapentin 100 Mg Capsule) 100 mg PO QAM&BEDTIME [facility] Last Admin: 10/22/22 05:51 Dose: 100 mg Glucagon (Glucagon 1 Mg/Ml Inj 1 Ml) 1 mg IM ONCE PRN; Protocol PRN Reason: Adult Acute Hypoglycemia Prot. Hydralazine HCl (Hydralazine 25 Mg Tablet) 25 mg PO TID [facility] Last Admin: 10/21/22 22:02 Dose: 25 mg Dextrose (D5w) 500 mls @ 100 mls/hr IV ONCE PRN; Protocol PRN Reason: Adult Acute Hypoglycemia Prot Amiodarone HCl 900 mg/Dextrose/ IV Miscellaneous Supplies 518 mls @ 0 mls/hr IV .Q0M [facility]; Protocol Last Titration: 10/21/22 08:15 Dose: Infused Insulin Glargine (Insulin Glargine 100 Units/1 Ml) 30 unit SUBCUT BEDTIME [facility] Last Admin: 10/21/22 22:20 Dose: 30 unit Insulin Human Lispro (Insulin Lispro 100 Unit/1 Ml) 0 unit SUBCUT WM&BEDTIME [facility]; Protocol Last Admin: 10/21/22 22:04 Dose: 16 unit Lorazepam (Lorazepam 2 Mg/Ml Inj 1 Ml) 1 mg IVP ONCE PRN PRN Reason: ANXIETY Last Admin: 10/18/22 07:27 Dose: 1 mg Metolazone (Metolazone 5 Mg Tablet) 5 mg PO DAILY [facility] Last Admin: 10/19/22 11:13 Dose: 5 mg Non-Formulary Medication (Umeclidinium-Vilanterol [Anoro Ellipta]) 2 each INHALATION DAILY [facility] Pantoprazole Sodium (Pantoprazole Dr 40 Mg Tablet) 40 mg PO DAILY [facility] Last Admin: 10/21/22 08:44 Dose: 40 mg Vitamin D (Cholecalciferol (Vitamin D3) 1,000 Unit Tablet) 1,000 unit PO DAILY [facility] Last Admin: 10/21/22 08:43 Dose: 1,000 unit Vitals/I&O/Wt Last Vital Signs Temp 97.5 F L 10/22/22 03:52 Pulse 66 10/22/22 04:05 Resp 19 H 10/22/22 04:04 BP 132/52 10/22/22 03:52 Pulse Ox 98 10/22/22 04:05 O2 Del Method BiPAP 10/22/22 04:04 O2 Flow Rate 4 10/21/22 08:00 FiO2 30 10/22/22 04:05 10/21/22 10/21/22 10/22/22 14:59 22:59 06:59 Intake Total 976.612 / 976.612 410 / 1386.612 Output Total 50 / 50 100 / 150 Balance 976.612 / 976.612 360 / 1336.612 -100 / 1236.612 Physical Exam Narrative: obesein bed, on FM 02 vs noted heent- nc/at, eomi, anicteric neck supple lungs dull bases,improved air movement heart reg, +MICHAEL abd soft, nt, nd, + bs ext 1+ b/l leg edema neuro- a,a, o x 3 examined by RN- telehealth visit Urinary Catheter Management: Bocanegra: Cath Placed During This Visit: no Reason for Continuing Indwelling Catheter: Accurate Measurement of Urinary Output in Critically Ill Patients Data 10/21/22 04:25 10/21/22 18:46 Micro: Microbiology 10/16/22 18:28 Blood Culture - Final Blood NO GROWTH AFTER 5 DAYS 10/16/22 18:09 Blood Culture - Final Blood NO GROWTH AFTER 5 DAYS A&P Assessment and plan (1) MATTIE (acute kidney injury): 82 yr old female obesity, COPD, Pulm HTN, a fib, DM, home 02 dep, HFpEF, + NSTEMI. pt here w/ sob, and is DNI/ DNR 1. MATTIE- likely from diuretics and and [address] scans- recommend- repeat ua, urine lytes, ur pr cr -renal us pending -d/c metolazone. -breathing improved. if more SOB, then inc iv lasix -support BP -maintain NSR - vanco level 14.5. all abx have been stopped -monitro chemistries and uop dec meds- dec gabapentin and clonidine as mattie- monitor MS 2. hyponatremia from mattie- now on dec diuretics- will monitor if becomes more sob and fails diuretics, then consider dialysis. for now, no emergent indication for dialysis. monitor bp, avoid contrast studies. avoid hypotension time spent 30+ minutes seen and examined w/ RN- telehealth visit Plan as above Attestations Medical Necessity Statement*: oliguric MATTIE Time Spent in Patient Care: 16 - 35 minutes (>than 50% of time spent in counselling and/or direct pt care on unit) . Coding Level of Care Code Acute Code for [facility] Diagnoses MATTIE (acute kidney injury) N17.9
[2022-10-22] MEDS: pantoprazole DR 40 mg Tablet PO (08:25)
[2022-10-22] MEDS: ferrous sulfate EC 325 mg Tablet PO ×3 (08:25→21:22)
[2022-10-22] MEDS: cholecalciferol (vitamin D3) 1,000 unit Tablet 1000 UNIT PO (08:25)
[2022-10-22] MEDS: amiodarone 200 mg Tablet 400 MG PO ×2 (08:25→17:17)
[2022-10-22] MEDS: aspirin 81 mg Chew Tablet PO (08:26)
[2022-10-22] MEDS: insulin lispro 100 unit/1 mL SUBCUT ×4 (08:26→21:26)
[2022-10-22] MEDS: hyDRALAzine 25 mg Tablet PO ×3 (08:26→21:22)
[2022-10-22 09:28] LABS: Basophils % 0.1 %; Eosinophils # 0.1 10^3/uL (0.0-0.8); Eosinophils % 1.2 %; Hematocrit 26.3 % (37.0-47.0); Hemoglobin 8.2 g/dL (11.5-15.3); Lymphocytes # 0.7 10^3/uL (0.8-4.8); Lymphocytes % 8.9 %; Mean Corpuscular HGB Conc 31.2 g/dL (30.0-36.0); Mean Corpuscular Hemoglobin 29.9 pg (28.0-34.0); Mean Platelet Volume 10.3 fL (7.4-10.4); Monocytes # 0.3 10^3/uL (0.2-0.9); Monocytes % 4.3 %; Neutrophils # 6.38 10^3/uL (1.8-7.7); Neutrophils % 85.1 %; Nucleated Red Blood Cells % 0 %; Platelet Count 142 10^3/cmm (130-400); Red Blood Count 2.74 10^6/uL (4.1-5.3); Red Cell Distribution Width 14.1 % (12.1-15.1); White Blood Count 7.5 10^3/uL (4.0-10.0)
[2022-10-22 09:51] LABS: Vancomycin Random 15.8 ug/mL (20.0-40.0)
[2022-10-22] MEDS: acetaminophen 325 mg Tablet 650 MG PO ×2 (10:00→15:59)
[2022-10-22] MEDS: dorzolamide 2% Op Soln 10 mL Btl 1 DROP EYE-BOTH ×2 (10:01→21:21)
[2022-10-22] MEDS: clotrimazole 1% cream 30 gm 1 APPLIC TOPICAL (10:01)
[2022-10-22 10:09] LABS: 25 Hydroxy Vitamin D 47 ng/mL (30-100); Alanine Aminotransferase 10 U/L (0-33); Albumin Level 3.5 g/dL (3.5-5.2); Alkaline Phosphatase 65 U/L (35-105); Anion Gap 16.6 (5-19); Aspartate Amino Transferase 10 U/L (0-32); Blood Urea Nitrogen 38 mg/dL (8-23); Calcium 10.1 mg/dL (8.5-10.5); Carbon Dioxide 27 mmol/L (22-29); Chloride 87 mmol/L (98-107); Creatine Phosphokinase 13 U/L (26-192); Globulin 2.8 g/dL (1.3-4.6); Glucose 310 mg/dL (65-115); NT Pro B Type Natriuretic Pept 1259 pg/mL (0-450); Osmolality Calculated 285 mOsm/kg (285-295); Phosphorus 6.8 mg/dL (2.5-4.5); Potassium 3.6 mmol/L (3.5-5.1); Sodium 127 mmol/L (136-145); Total Bilirubin 0.3 mg/dL (0.15-1.2); Total Protein 6.3 g/dL (6.6-8.7)
[2022-10-22 11:30] LABS: Glucose Point of Care 460 mg/dL (70-110)
[2022-10-22] MEDS: lipase-protease-amylase Capsule 2 EACH PO (13:08)
--- NOTE | 2022-10-22 16:04 | PM.PN ---
Subjective Subjective: Patient's creatinine continues to worsen. Nephrology on board. Feels weak. Currently in normal sinus rhythm Vitals/I&O/Wt Last Vital Signs Temp 97.5 F L 10/22/22 03:52 Pulse 72 10/22/22 14:14 Resp 21 H 10/22/22 13:41 BP 162/67 10/22/22 11:08 Pulse Ox 96 10/22/22 13:41 O2 Del Method Nasal Cannula 10/22/22 13:41 O2 Flow Rate 3 10/22/22 13:41 FiO2 30 10/22/22 04:05 10/22/22 10/22/22 10/22/22 06:59 14:59 22:59 Intake Total 720 / 720 Output Total 100 / 150 Balance -100 / 1236.612 720 / 720 Weight last 48 hrs Weight 252 lb 6 oz Physical Exam Narrative: GENERAL: Patient is alert, awake and oriented x3. [] NECK: No jugular vein distension. [] HEENT: No cyanosis. No icterus. No pallor. [] HEART: Irregularly irregular LUNGS: Diminished air entry. CENTRAL NERVOUS SYSTEM: Grossly nonfocal. [] EXTREMITIES: Lower extremities with 1+ edema bilaterally. Urinary Catheter Management: Bocanegra: Cath Placed During This Visit: no Reason for Continuing Indwelling Catheter: Accurate Measurement of Urinary Output in Critically Ill Patients Data 10/22/22 09:18 10/22/22 09:18 Micro: Microbiology 10/16/22 18:28 Blood Culture - Final Blood NO GROWTH AFTER 5 DAYS 10/16/22 18:09 Blood Culture - Final Blood NO GROWTH AFTER 5 DAYS A&P Assessment and plan (1) NSTEMI (non-ST elevated myocardial infarction): (2) Atrial fibrillation: (3) Pneumonia: (4) Mitral stenosis: (5) HTN (hypertension): (6) Pulmonary edema: Qualifiers: Chronicity: acute Qualified Code(s): J81.0 - Acute pulmonary edema (7) Type 2 diabetes mellitus: Qualifiers: Diabetes mellitus complication status: with hyperglycemia Diabetes mellitus supervisor intermediates insulin use: with supervisor intermediates use Qualified Code(s): E11.65 - Type 2 diabetes mellitus with hyperglycemia; Z79.4 - terminal supervisor (current) use of insulin Plan Patient's creatinine still worsening. Ok to administer gentle fluids. Continue holding diuretics Patient is back in normal sinus rhythm. Continue current medications We will manage her medically at this time. Can do a stress test once she is stable. Also JORGE can be done as outpatient,given discrepancy in the mitral valve area and mean gradient across it. Close I&O's. Thank you for involving us with care of this patient. We will continue to follow. Please call with questions. Attestations Medical Necessity Statement*: Care expected to cross 2 midnights. Coding Level of Care Code Acute Code for [facility] Diagnoses NSTEMI (non-ST elevated myocardial infarction) I21.4 Atrial fibrillation I48.91 Pneumonia J18.9 Mitral stenosis I05.0 HTN (hypertension) I10 Pulmonary edema J81.0 Chronicity: acute Type 2 diabetes mellitus E11.65; Z79.4 Diabetes mellitus complication status: with hyperglycemia Diabetes mellitus supervisor intermediates insulin use: with prison use
--- NOTE | 2022-10-22 16:10 | PM.PN ---
Subjective Subjective: Ms. Winkler states that her breathing is unchanged today. She is on 3 L/min supplemental O2. Renal function worsened today at 3.4. Medications: Reviewed: Yes Vitals/I&O/Wt Last Vital Signs Temp 97.5 F L 10/22/22 03:52 Pulse 72 10/22/22 14:14 Resp 21 H 10/22/22 13:41 BP 162/67 10/22/22 11:08 Pulse Ox 96 10/22/22 13:41 O2 Del Method Nasal Cannula 10/22/22 13:41 O2 Flow Rate 3 10/22/22 13:41 FiO2 30 10/22/22 04:05 10/22/22 10/22/22 10/22/22 06:59 14:59 22:59 Intake Total 720 / 720 Output Total 100 / 150 Balance -100 / 1236.612 720 / 720 Weight last 48 hrs Weight 114.475 kg Physical Exam Narrative: General: No acute distress, AO x3, chronically ill appearing lady HEENT: PERRLA, pupils bilaterally equal and reactive, pallors not present Chest: Normal vesicular breath sounds, no added sounds, equal good air entry bilaterally CVS: S1-S2 regular, no murmurs, no tachycardia, no gallops, no rubs Abdomen: Soft, nontender, no organomegaly, bowel sounds present Neuro: No focal deficits, no facial deformity, AO x3, power 5/5 in all limbs Urinary Catheter Management: Bocanegra: Cath Placed During This Visit: no Reason for Continuing Indwelling Catheter: Accurate Measurement of Urinary Output in Critically Ill Patients Data 10/22/22 09:18 10/22/22 09:18 Micro: Microbiology 10/16/22 18:28 Blood Culture - Final Blood NO GROWTH AFTER 5 DAYS 10/16/22 18:09 Blood Culture - Final Blood NO GROWTH AFTER 5 DAYS A&P Assessment and plan (1) Atrial fibrillation: (2) NSTEMI (non-ST elevated myocardial infarction): (3) Pleural effusion: (4) Mitral stenosis: (5) HTN (hypertension): (6) Acute diastolic CHF (congestive heart failure): (7) Type 2 diabetes mellitus: Qualifiers: Diabetes mellitus complication status: with hyperglycemia Diabetes mellitus residential insulin use: with technician terminal and repeater use Qualified Code(s): E11.65 - Type 2 diabetes mellitus with hyperglycemia; Z79.4 - intermodal dispatcher (current) use of insulin (8) Pneumonia: Booker Winkler is a 82 year old female with PMH of COPD on 2 Ls oxygen at home, DM, PVD, HFpEF,?atrial fibrillation, was brought in on October 16, 2022 with chief complaint of acute onset of left lower quadrant abdominal pain, associated with some nausea no vomiting, she was also complaining of worsening shortness of breath, orthopnea going on for the last few days, she denied any fever chills cough, chest pain, vomiting. CT of the abdomen and pelvis was overall unremarkable. Currently being admitted and being managed for # NSTEMI: EKG atrial fibrillation. Troponin trend: 108-147 --> 162 Follow 2D echo: Normal LV size and systolic function with EF of 64%, no RWMA Currently on ACS protocol with ASA 81mg po daily, atorvastatin, lovenox 110mg q24h (renally dosed)---> change lovenox to iv heparin gtt Continue telemetry monitoring Cardiology consult appreciated unable to undego cardiac cath due to MATTIE # Decompensated heart failure with preserved ejection fraction: Patient has bilateral pleural effusion, worsening shortness of breath, orthopnea Initially she was on Lasix 60 IV TID as well as metolazone was added later. IV and p.o. diuresis has been kept on hold due to worsening renal function, cr now up to 23.4 urine output 150 cc last 24 hrs Monitor intake and output charting Monitor daily weight Telemetry monitoring Possible underlying pneumonia: The clinical suspicion is low. X-ray chest: patchy opacity involving the right lung base up to the hilar level with similar right perihilar change. The opacity is greatest in the lower base which is probably due to pleural effusion There is retrocardiac medial left basal opacity in addition to blunting of the costophrenic angle indicating small effusion. CT angio chest : ?Negative for pulmonary embolus.Moderate bilateral pleural effusions.Patchy bilateral dependent airspace infiltrates.?Enlarged right hilar 2.8 cm lymph node with scattered prominent additional subcentimeter lymph nodes throughout the mediastinum, nonspecific. She is currently on empiric piperacillin/tazobactam, completing day 6 today. We will discontinue IV antibiotics as she has completed an adequate course. Follow sputum Gram stain and culture. Blood culture:NTD Urine Legionella antigen: Negative MRSA PCR : Negative Influenza and rapid COVID is negative # MATTIE on CKD: Possibly multifactorial secondary to aggressive diuresis, contrast studies Baseline serum creatinine is around 0.6-1 Current serum creatinine 2.4, urine output following to 150 cc over last 24 hours. Diuresis currently on hold, avoid any nephrotoxic medications appreciate nephrology recommendations start IVF NS @ 50 cc/hr Monitor BMP for now Monitor intake output charting Diuresis on hold Severe pulmonary hypertension: Pulmonary artery peak systolic pressure 73 mmHg. Pulmonary follow-up as outpatient History of diabetes: Continue sliding scale insulin, monitor fingerstick glucose History of atrial fibrillation: Patient is intermittently going into A-fib with RVR Currently rate controlled on amiodarone 400 mg p.o. twice daily and cardizem 30 mg p.o. every 6H On therapeutic anticoagulation with Lovenox. We will switch to p.o. anticoagulation on discharge History of hypertension: Continue clonidine and hydralazine Mild mitral stenosis: Mitral valve mean gradient is 12.8,?mmHg.? The mitral valve area by pressure half-time is 2.14 cm squared.? Peak velocity across the mitral valve was 2.95 m/s. Cardiology on board Left lower quadrant abdominal pain: CT abdomen and pelvis showed: No acute intra abdominal or pelvic pathology. Monitor for now CODE STATUS:AND DVT prophylaxis : on heparin gtt Attestations Medical Necessity Statement*: started IVF NS @ 50 cc/hr, monitor kidney function, closely monitor respiratory status after starting IVF as highly likely to become hypervolemic, patient understands risk of progression to HD, agreebale if needed Coding Level of Care Code Acute Code for [facility] Diagnoses Atrial fibrillation I48.91 NSTEMI (non-ST elevated myocardial infarction) I21.4 Pleural effusion J90 Mitral stenosis I05.0 HTN (hypertension) I10 Acute diastolic CHF (congestive heart failure) I50.31 Type 2 diabetes mellitus E11.65; Z79.4 Diabetes mellitus complication status: with hyperglycemia Diabetes mellitus residential insulin use: with technician terminal and repeater use Pneumonia J18.9
[2022-10-22 16:41] LABS: Glucose Point of Care 363 mg/dL (70-110)
[2022-10-22] MEDS: sodium chloride 0.9% 1,000 ML 50 ML IV (16:57)
[2022-10-22] MEDS: morphine 4 mg/mL SDV 1 mL 2 MG IVP (17:10)
[2022-10-22 20:42] LABS: Glucose Point of Care 390 mg/dL (70-110)
[2022-10-22] MEDS: atorvastatin 40 mg Tablet 20 MG PO (21:23)
[2022-10-22] MEDS: insulin glargine 100 units/1 mL 30 UNIT SUBCUT (21:26)
[2022-10-23] VITALS (15 sets, daily range): BP systolic 138–171; BP diastolic 56–87; PULSE 65–74; RESP 17–26; TEMP 36.4–36.6; O2SAT 93–98; BMI 50.1
[2022-10-23] MEDS: ipratropium-albuterol 3 mL Neb INHALATION ×4 (02:55→19:41)
[2022-10-23 03:38] LABS: Glucose Point of Care 392 mg/dL (70-110)
[2022-10-23] MEDS: gabapentin 100 mg Capsule PO ×2 (05:45→20:48)
[2022-10-23] MEDS: dilTIAZem 30 mg Tablet PO ×3 (05:45→17:23)
[2022-10-23 06:33] LABS: Glucose Point of Care 275 mg/dL (70-110)
--- NOTE | 2022-10-23 07:06 | PM.PN ---
Subjective Subjective: weak, sob, nausea, using fm 02, swollen Medications: Reviewed: Yes Medication Review Details: Current Medications Acetaminophen (Acetaminophen 325 Mg Tablet) 650 mg PO Q6H PRN PRN Reason: Mild/Mod Pain Or Temp >/= 101 Last Admin: 10/22/22 15:59 Dose: 650 mg Albuterol/Ipratropium (Ipratropium-Albuterol 3 Ml Neb) 3 ml INHALATION Q6H.RESP [facility] Last Admin: 10/23/22 02:55 Dose: 3 ml Amiodarone HCl (Amiodarone 200 Mg Tablet) 400 mg PO BID [facility] Last Admin: 10/22/22 17:17 Dose: 400 mg Lipase/Protease/Amylase (Etxwcy-Letmubld-Aaihrwp Capsule) 2 each PO TIDWM [facility] Last Admin: 10/22/22 18:01 Dose: Not Given Aspirin (Aspirin 81 Mg Chew Tablet) 81 mg PO DAILY [facility] Last Admin: 10/22/22 08:26 Dose: 81 mg Atorvastatin Calcium (Atorvastatin 40 Mg Tablet) 20 mg PO BEDTIME [facility] Last Admin: 10/22/22 21:23 Dose: 20 mg Bisacodyl (Bisacodyl 5 Mg Tablet) 10 mg PO DAILY PRN; Protocol PRN Reason: Constipation (see protocol) Cilostazol (Cilostazol 100 Mg Tablet) 100 mg PO BID@0900,2100 [facility] Last Admin: 10/19/22 08:45 Dose: 100 mg Clotrimazole (Clotrimazole 1% Cream 30 Gm) 1 applic TOPICAL BID [facility] Last Admin: 10/22/22 18:05 Dose: Not Given Dextrose (Dextrose 50% Syringe 50 Ml) 50 ml IVP PRN PRN; Protocol PRN Reason: hypoglycemia protocol Dextrose (Dextrose 50% Syringe 50 Ml) 25 ml IVP ONCE PRN; Protocol PRN Reason: hypoglycemia protocol Diltiazem HCl (Diltiazem 30 Mg Tablet) 30 mg PO Q6H [facility] Last Admin: 10/23/22 05:45 Dose: 30 mg Dorzolamide HCl (Dorzolamide 2% Op Soln 10 Ml Btl) 1 drop EYE-BOTH BID@0900,2100 [facility] Last Admin: 10/22/22 21:21 Dose: 1 drop Ferrous Sulfate (Ferrous Sulfate Ec 325 Mg Tablet) 325 mg PO TID [facility] Last Admin: 04/18/23 21:22 Dose: 325 mg Gabapentin (Gabapentin 100 Mg Capsule) 100 mg PO QAM&BEDTIME [facility] Last Admin: 10/23/22 05:45 Dose: 100 mg Glucagon (Glucagon 1 Mg/Ml Inj 1 Ml) 1 mg IM ONCE PRN; Protocol PRN Reason: Adult Acute Hypoglycemia Prot. Heparin Sodium (Porcine) (Heparin 5,000 Unit/Ml Inj 1 Ml) 0 unit IV PRN PRN; Protocol PRN Reason: Heparin weight-base protocol Hydralazine HCl (Hydralazine 25 Mg Tablet) 25 mg PO TID [facility] Last Admin: 10/22/22 21:22 Dose: 25 mg Dextrose (D5w) 500 mls @ 100 mls/hr IV ONCE PRN; Protocol PRN Reason: Adult Acute Hypoglycemia Prot Amiodarone HCl 900 mg/Dextrose/ IV Miscellaneous Supplies 518 mls @ 0 mls/hr IV .Q0M [facility]; Protocol Last Titration: 10/21/22 08:15 Dose: Infused Heparin Sodium/Sodium Chloride (Heparin Drip) 25,000 unit in 500 mls @ 0 mls/hr IV .Q0M [facility]; Protocol Sodium Chloride (Sodium Chloride 0.9%) 1,000 mls @ 50 mls/hr IV .Q20H [facility] Last Admin: 10/22/22 16:57 Dose: 50 mls/hr Insulin Glargine (Insulin Glargine 100 Units/1 Ml) 30 unit SUBCUT BEDTIME [facility] Last Admin: 10/22/22 21:26 Dose: 30 unit Insulin Human Lispro (Insulin Lispro 100 Unit/1 Ml) 0 unit SUBCUT WM&BEDTIME [facility]; Protocol Last Admin: 10/22/22 21:26 Dose: 14 unit Metolazone (Metolazone 5 Mg Tablet) 5 mg PO DAILY [facility] Last Admin: 10/19/22 11:13 Dose: 5 mg Morphine Sulfate (Morphine 4 Mg/Ml Sdv 1 Ml) 2 mg IVP Q8H PRN PRN Reason: SEVERE PAIN Last Admin: 10/22/22 17:10 Dose: 2 mg Non-Formulary Medication (Umeclidinium-Vilanterol [Anoro Ellipta]) 2 each INHALATION DAILY [facility] Pantoprazole Sodium (Pantoprazole Dr 40 Mg Tablet) 40 mg PO DAILY [facility] Last Admin: 10/22/22 08:25 Dose: 40 mg Vitamin D (Cholecalciferol (Vitamin D3) 1,000 Unit Tablet) 1,000 unit PO DAILY [facility] Last Admin: 10/22/22 08:25 Dose: 1,000 unit Vitals/I&O/Wt Last Vital Signs Temp 97.6 F 10/23/22 04:22 Pulse 68 10/23/22 05:54 Resp 26 H 10/23/22 04:22 BP 164/83 10/23/22 04:22 Pulse Ox 93 10/23/22 04:50 O2 Del Method BiPAP 10/23/22 02:56 O2 Flow Rate 3 10/22/22 13:41 FiO2 30 10/23/22 04:50 10/22/22 10/23/22 10/23/22 22:59 06:59 14:59 Intake Total 240 / 960 Output Total 600 / 600 400 / 1000 Balance -360 / 360 -400 / -40 Weight last 48 hrs Weight 114.475 kg Physical Exam Narrative: obese in bed, on FM 02 vs noted heent- nc/at, eomi, anicteric neck supple lungs dull bases,rales, and crackles b/l heart reg, +MICHAEL abd soft, nt, nd, + bs ext 2+ b/l leg edema neuro- a,a, o x 3 examined by RN- telehealth visit Urinary Catheter Management: Bocnaegra: Cath Placed During This Visit: no Reason for Continuing Indwelling Catheter: Accurate Measurement of Urinary Output in Critically Ill Patients Data 10/22/22 09:18 10/22/22 09:18 A&P Assessment and plan (1) MATTIE (acute kidney injury): 82 yr old female obesity, COPD, Pulm HTN, a fib, DM, home 02 dep, HFpEF, + NSTEMI. pt here w/ sob, and is DNI/ DNR 1. MATTIE- likely from diuretics and and [address] scans- recommend- repeat ua, urine lytes, ur pr cr -renal us- normal, no hydronephrosis -she is more SOB, will inc iv lasix -support BP -maintain NSR - vanco level 14.5. all abx have been stopped -monitro chemistries and uop dec meds- dec gabapentin and clonidine as mattie- monitor MS 2. hyponatremia from mattie- now on dec diuretics- will monitor if does not respond to lasix- then will consider dialysis. monitor bp, avoid contrast studies. avoid hypotension time spent 30+ minutes seen and examined w/ RN- telehealth visit Plan as above Attestations Medical Necessity Statement*: mattie, chf, sob Time Spent in Patient Care: 16 - 35 minutes (>than 50% of time spent in counselling and/or direct pt care on unit). Coding Level of Care Code Acute Code for [facility] Diagnoses MATTIE (acute kidney injury) N17.9
[2022-10-23] MEDS: FUROsemide 10 mg/mL SDV 10mL 80 MG IVP (08:03)
[2022-10-23] MEDS: cholecalciferol (vitamin D3) 1,000 unit Tablet 1000 UNIT PO (08:04)
[2022-10-23] MEDS: amiodarone 200 mg Tablet 400 MG PO ×2 (08:04→17:19)
[2022-10-23] MEDS: aspirin 81 mg Chew Tablet PO (08:04)
[2022-10-23] MEDS: ferrous sulfate EC 325 mg Tablet PO ×3 (08:04→20:48)
[2022-10-23] MEDS: hyDRALAzine 25 mg Tablet PO ×3 (08:04→20:48)
[2022-10-23] MEDS: pantoprazole DR 40 mg Tablet PO (08:04)
[2022-10-23] MEDS: epoetin alfa 10,000 unit/mL INJ 10000 UNIT SUBCUT (08:05)
[2022-10-23] MEDS: FUROsemide 100 MG in sodium chloride 0.9% 40 ML IV (08:05)
[2022-10-23] MEDS: insulin lispro 100 unit/1 mL SUBCUT ×3 (08:06→20:48)
--- NOTE | 2022-10-23 08:19 | PM.PN ---
Subjective Subjective: Patient is doing well. Has been diuresing and renal function is improving. Shortness of breath has improved. Vitals/I&O/Wt Last Vital Signs Temp 97.6 F 10/23/22 04:22 Pulse 68 10/23/22 05:54 Resp 26 H 10/23/22 04:22 BP 164/83 10/23/22 04:22 Pulse Ox 93 10/23/22 04:50 O2 Del Method BiPAP 10/23/22 02:56 O2 Flow Rate 3 10/22/22 13:41 FiO2 30 10/23/22 04:50 10/22/22 10/23/22 10/23/22 22:59 06:59 14:59 Intake Total 240 / 960 Output Total 600 / 600 400 / 1000 Balance -360 / 360 -400 / -40 Weight last 48 hrs Weight 252 lb 6 oz Physical Exam Narrative: GENERAL: Patient is alert, awake and oriented x3. [] NECK: No jugular vein distension. [] HEENT: No cyanosis. No icterus. No pallor. [] HEART: Irregularly irregular LUNGS: Diminished air entry. CENTRAL NERVOUS SYSTEM: Grossly nonfocal. [] EXTREMITIES: Lower extremities with 1+ edema bilaterally. Urinary Catheter Management: Bocanegra: Cath Placed During This Visit: no Reason for Continuing Indwelling Catheter: Accurate Measurement of Urinary Output in Critically Ill Patients Data 10/24/22 04:53 10/24/22 04:53 A&P Assessment and plan (1) NSTEMI (non-ST elevated myocardial infarction): (2) Atrial fibrillation: (3) Pneumonia: (4) Mitral stenosis: (5) HTN (hypertension): (6) Pulmonary edema: Qualifiers: Chronicity: acute Qualified Code(s): J81.0 - Acute pulmonary edema (7) Type 2 diabetes mellitus: Qualifiers: Diabetes mellitus complication status: with hyperglycemia Diabetes mellitus [facility] insulin use: with termite control technician use Qualified Code(s): E11.65 - Type 2 diabetes mellitus with hyperglycemia; Z79.4 - alf (current) use of insulin Plan Patient's creatinine is improving now. Patient started back on lasix gtt and metolazone. Diuresing well. Patient is back in normal sinus rhythm. Continue current medications We will manage her medically at this time. Had a discussion with patient regarding options and she wants to proceed with medical therapy. Also JORGE can be done as outpatient,given discrepancy in the mitral valve area and mean gradient across it. Close I&O's. Thank you for involving us with care of this patient. We will continue to follow. Please call with questions. Attestations Medical Necessity Statement*: Care expected to cross 2 midnights. Coding Level of Care Code Acute Code for [facility] Diagnoses NSTEMI (non-ST elevated myocardial infarction) I21.4 Atrial fibrillation I48.91 Pneumonia J18.9 Mitral stenosis I05.0 HTN (hypertension) I10 Pulmonary edema J81.0 Chronicity: acute Type 2 diabetes mellitus E11.65; Z79.4 Diabetes mellitus complication status: with hyperglycemia Diabetes mellitus termite control technician insulin use: with termite control technician use
[2022-10-23] MEDS: metOLazone 5 MG Tablet PO (09:02)
--- NOTE | 2022-10-23 09:56 | PC.NURSE ---
Patient resting in bed but overall does not feel well. Her output has increased since starting the furosemide drip. Cold rag placed on forehead. She states she feels like she is going to vomit. Emesis basin placed by patient in bed.
[2022-10-23 11:29] LABS: Glucose Point of Care 261 mg/dL (70-110)
[2022-10-23 15:40] LABS: Basophils % 0.1 %; Eosinophils % 0.1 %; Hematocrit 26.7 % (37.0-47.0); Hemoglobin 8.5 g/dL (11.5-15.3); Lymphocytes # 0.6 10^3/uL (0.8-4.8); Lymphocytes % 6.3 %; Mean Corpuscular HGB Conc 31.8 g/dL (30.0-36.0); Mean Corpuscular Hemoglobin 30.2 pg (28.0-34.0); Mean Platelet Volume 10.3 fL (7.4-10.4); Monocytes # 0.3 10^3/uL (0.2-0.9); Monocytes % 2.9 %; Neutrophils # 7.86 10^3/uL (1.8-7.7); Neutrophils % 89.9 %; Nucleated Red Blood Cells % 0 %; Platelet Count 173 10^3/cmm (130-400); Red Blood Count 2.81 10^6/uL (4.1-5.3); White Blood Count 8.7 10^3/uL (4.0-10.0)
[2022-10-23 15:53] LABS: Partial Thromboplastin Time 40.4 SECONDS (23.9-36.7)
[2022-10-23] MEDS: dorzolamide 2% Op Soln 10 mL Btl 1 DROP EYE-BOTH (15:53)
[2022-10-23 15:59] LABS: Alanine Aminotransferase 13 U/L (0-33); Albumin Level 3.9 g/dL (3.5-5.2); Alkaline Phosphatase 69 U/L (35-105); Anion Gap 16.8 (5-19); Aspartate Amino Transferase 16 U/L (0-32); Blood Urea Nitrogen 37 mg/dL (8-23); Calcium 9.7 mg/dL (8.5-10.5); Carbon Dioxide 28 mmol/L (22-29); Chloride 86 mmol/L (98-107); Glucose 244 mg/dL (65-115); Magnesium 1.9 mg/dL (1.7-2.3); Osmolality Calculated 281 mOsm/kg (285-295); Phosphorus 4.5 mg/dL (2.5-4.5); Potassium 3.8 mmol/L (3.5-5.1); Sodium 127 mmol/L (136-145); Total Bilirubin 0.3 mg/dL (0.15-1.2); Total Protein 6.9 g/dL (6.6-8.7)
[2022-10-23] MEDS: acetaminophen 325 mg Tablet 650 MG PO (15:59)
[2022-10-23 16:00] LABS: Ferritin 80 ng/mL (15-150); Iron 40 ug/dL (37-145); Percent Saturation 14.4 % (20-50); Total Iron Binding Capacity 277 mcg/dl; Unsaturated Iron Binding 237 ug/dL (112-347)
[2022-10-23] MEDS: heparin 5,000 unit/mL INJ 1 mL IV (16:43)
[2022-10-23] MEDS: heparin drip 25,000 UNIT/500 ML PREMIX 32 UNIT IV (16:45)
[2022-10-23] MEDS: lipase-protease-amylase Capsule 2 EACH PO (17:20)
[2022-10-23 17:25] LABS: Glucose Point of Care 301 mg/dL (70-110)
[2022-10-23] MEDS: clotrimazole 1% cream 30 gm 1 APPLIC TOPICAL ×2 (17:50→18:00)
[2022-10-23 20:22] LABS: Glucose Point of Care 391 mg/dL (70-110)
[2022-10-23] MEDS: atorvastatin 40 mg Tablet 20 MG PO (20:48)
[2022-10-23] MEDS: insulin glargine 100 units/1 mL 30 UNIT SUBCUT (20:49)
[2022-10-23 22:31] LABS: Partial Thromboplastin Time 121.1 SECONDS (23.9-36.7)
--- NOTE | 2022-10-23 22:34 | PM.PN ---
Subjective Subjective: became short of breath overnigth and this morning. IVF stopped, started on lasix drip, had 1100 ml output by the time she was seen at ~ 1pm Medications: Reviewed: Yes Medication Review Details: Current Medications Acetaminophen (Acetaminophen 325 Mg Tablet) 650 mg PO Q6H PRN PRN Reason: Mild/Mod Pain Or Temp >/= 101 Last Admin: 10/22/22 15:59 Dose: 650 mg Albuterol/Ipratropium (Ipratropium-Albuterol 3 Ml Neb) 3 ml INHALATION Q6H.RESP [facility] Last Admin: 10/23/22 02:55 Dose: 3 ml Amiodarone HCl (Amiodarone 200 Mg Tablet) 400 mg PO BID [facility] Last Admin: 10/22/22 17:17 Dose: 400 mg Lipase/Protease/Amylase (Bbuvzb-Gtdldewe-Yyzstrp Capsule) 2 each PO TIDWM [facility] Last Admin: 10/22/22 18:01 Dose: Not Given Aspirin (Aspirin 81 Mg Chew Tablet) 81 mg PO DAILY [facility] Last Admin: 10/22/22 08:26 Dose: 81 mg Atorvastatin Calcium (Atorvastatin 40 Mg Tablet) 20 mg PO BEDTIME [facility] Last Admin: 10/22/22 21:23 Dose: 20 mg Bisacodyl (Bisacodyl 5 Mg Tablet) 10 mg PO DAILY PRN; Protocol PRN Reason: Constipation (see protocol) Cilostazol (Cilostazol 100 Mg Tablet) 100 mg PO BID@0900,2100 [facility] Last Admin: 10/19/22 08:45 Dose: 100 mg Clotrimazole (Clotrimazole 1% Cream 30 Gm) 1 applic TOPICAL BID [facility] Last Admin: 10/22/22 18:05 Dose: Not Given Dextrose (Dextrose 50% Syringe 50 Ml) 50 ml IVP PRN PRN; Protocol PRN Reason: hypoglycemia protocol Dextrose (Dextrose 50% Syringe 50 Ml) 25 ml IVP ONCE PRN; Protocol PRN Reason: hypoglycemia protocol Diltiazem HCl (Diltiazem 30 Mg Tablet) 30 mg PO Q6H [facility] Last Admin: 10/23/22 05:45 Dose: 30 mg Dorzolamide HCl (Dorzolamide 2% Op Soln 10 Ml Btl) 1 drop EYE-BOTH BID@0900,2100 [facility] Last Admin: 10/22/22 21:21 Dose: 1 drop Ferrous Sulfate (Ferrous Sulfate Ec 325 Mg Tablet) 325 mg PO TID [facility] Last Admin: 10/22/22 21:22 Dose: 325 mg Gabapentin (Gabapentin 100 Mg Capsule) 100 mg PO QAM&BEDTIME [facility] Last Admin: 10/23/22 05:45 Dose: 100 mg Glucagon (Glucagon 1 Mg/Ml Inj 1 Ml) 1 mg IM ONCE PRN; Protocol PRN Reason: Adult Acute Hypoglycemia Prot. Heparin Sodium (Porcine) (Heparin 5,000 Unit/Ml Inj 1 Ml) 0 unit IV PRN PRN; Protocol PRN Reason: Heparin weight-base protocol Hydralazine HCl (Hydralazine 25 Mg Tablet) 25 mg PO TID [facility] Last Admin: 10/22/22 21:22 Dose: 25 mg Dextrose (D5w) 500 mls @ 100 mls/hr IV ONCE PRN; Protocol PRN Reason: Adult Acute Hypoglycemia Prot Amiodarone HCl 900 mg/Dextrose/ IV Miscellaneous Supplies 518 mls @ 0 mls/hr IV .Q0M [facility]; Protocol Last Titration: 10/21/22 08:15 Dose: Infused Heparin Sodium/Sodium Chloride (Heparin Drip) 25,000 unit in 500 mls @ 0 mls/hr IV .Q0M [facility]; Protocol Sodium Chloride (Sodium Chloride 0.9%) 1,000 mls @ 50 mls/hr IV .Q20H [facility] Last Admin: 10/22/22 16:57 Dose: 50 mls/hr Insulin Glargine (Insulin Glargine 100 Units/1 Ml) 30 unit SUBCUT BEDTIME [facility] Last Admin: 10/22/22 21:26 Dose: 30 unit Insulin Human Lispro (Insulin Lispro 100 Unit/1 Ml) 0 unit SUBCUT WM&BEDTIME [facility]; Protocol Last Admin: 10/22/22 21:26 Dose: 14 unit Metolazone (Metolazone 5 Mg Tablet) 5 mg PO DAILY [facility] Last Admin: 10/19/22 11:13 Dose: 5 mg Morphine Sulfate (Morphine 4 Mg/Ml Sdv 1 Ml) 2 mg IVP Q8H PRN PRN Reason: SEVERE PAIN Last Admin: 10/22/22 17:10 Dose: 2 mg Non-Formulary Medication (Umeclidinium-Vilanterol [Anoro Ellipta]) 2 each INHALATION DAILY [facility] Pantoprazole Sodium (Pantoprazole Dr 40 Mg Tablet) 40 mg PO DAILY [facility] Last Admin: 10/22/22 08:25 Dose: 40 mg Vitamin D (Cholecalciferol (Vitamin D3) 1,000 Unit Tablet) 1,000 unit PO DAILY [facility] Last Admin: 10/22/22 08:25 Dose: 1,000 unit Vitals/I&O/Wt Last Vital Signs Temp 97.7 F 10/23/22 08:00 Pulse 72 10/23/22 20:00 Resp 17 10/23/22 20:00 BP 138/63 10/23/22 20:00 Pulse Ox 97 10/23/22 20:00 O2 Del Method BiPAP 10/23/22 20:00 O2 Flow Rate 3 10/23/22 08:00 FiO2 30 10/23/22 19:42 10/23/22 10/23/22 10/23/22 06:59 14:59 22:59 Intake Total 1080 / 1080 240 / 1320 Output Total 400 / 1000 1100 / 1100 1050 / 2150 Balance -400 / -40 -20 / -20 -810 / -830 Weight last 48 hrs Weight 112.661 kg Weight 114.475 kg Physical Exam Narrative: General: No acute distress, AO x3, chronically ill appearing lady HEENT: PERRLA, pupils bilaterally equal and reactive, pallors not present Chest: Normal vesicular breath sounds, no added sounds, equal good air entry bilaterally CVS: S1-S2 regular, no murmurs, no tachycardia, no gallops, no rubs Abdomen: Soft, nontender, no organomegaly, bowel sounds present Neuro: No focal deficits, no facial deformity, AO x3, power 5/5 in all limbs Urinary Catheter Management: Bocanegra: Cath Placed During This Visit: no Reason for Continuing Indwelling Catheter: Accurate Measurement of Urinary Output in Critically Ill Patients Data 10/23/22 15:29 10/23/22 15:29 A&P Assessment and plan (1) Atrial fibrillation: (2) NSTEMI (non-ST elevated myocardial infarction): (3) Pleural effusion: (4) Mitral stenosis: (5) HTN (hypertension): (6) Acute diastolic CHF (congestive heart failure): (7) Type 2 diabetes mellitus: Qualifiers: Diabetes mellitus complication status: with hyperglycemia Diabetes mellitus janitor insulin use: with janitor use Qualified Code(s): E11.65 - Type 2 diabetes mellitus with hyperglycemia; Z79.4 - care home (current) use of insulin (8) Pneumonia: Booker Winkler is a 82 year old female with PMH of COPD on 2 Ls oxygen at home, DM, PVD, HFpEF,?atrial fibrillation, was brought in on October 16, 2022 with chief complaint of acute onset of left lower quadrant abdominal pain, associated with some nausea no vomiting, she was also complaining of worsening shortness of breath, orthopnea going on for the last few days, she denied any fever chills cough, chest pain, vomiting. CT of the abdomen and pelvis was overall unremarkable. Currently being admitted and being managed for # NSTEMI: EKG atrial fibrillation. Troponin trend: 108-147 --> 162 Follow 2D echo: Normal LV size and systolic function with EF of 64%, no RWMA Currently on ACS protocol with ASA 81mg po daily, atorvastatin, lovenox 110mg q24h (renally dosed)---> change lovenox to iv heparin gtt Continue telemetry monitoring Cardiology consult appreciated unable to undego cardiac cath due to MATTIE # Decompensated heart failure with preserved ejection fraction: Patient has bilateral pleural effusion, worsening shortness of breath, orthopnea Initially she was on Lasix 60 IV TID as well as metolazone was added later. IV and p.o. diuresis has been kept on hold due to worsening renal function, cr now up to 23.4 urine output 150 cc last 24 hrs Monitor intake and output charting Monitor daily weight Telemetry monitoring Possible underlying pneumonia: The clinical suspicion is low. X-ray chest: patchy opacity involving the right lung base up to the hilar level with similar right perihilar change. The opacity is greatest in the lower base which is probably due to pleural effusion There is retrocardiac medial left basal opacity in addition to blunting of the costophrenic angle indicating small effusion. CT angio chest : ?Negative for pulmonary embolus.Moderate bilateral pleural effusions.Patchy bilateral dependent airspace infiltrates.?Enlarged right hilar 2.8 cm lymph node with scattered prominent additional subcentimeter lymph nodes throughout the mediastinum, nonspecific. She is currently on empiric piperacillin/tazobactam, completing day 6 today. We will discontinue IV antibiotics as she has completed an adequate course. Follow sputum Gram stain and culture. Blood culture:NTD Urine Legionella antigen: Negative MRSA PCR : Negative Influenza and rapid COVID is negative # MATTIE on CKD: Possibly multifactorial secondary to aggressive diuresis, contrast studies Baseline serum creatinine is around 0.6-1 Current serum creatinine 2.4, urine output following to 150 cc over last 24 hours. Diuresis currently on hold, avoid any nephrotoxic medications appreciate nephrology recommendations start IVF NS @ 50 cc/hr Monitor BMP for now Monitor intake output charting Diuresis on hold Severe pulmonary hypertension: Pulmonary artery peak systolic pressure 73 mmHg. Pulmonary follow-up as outpatient History of diabetes: Continue sliding scale insulin, monitor fingerstick glucose History of atrial fibrillation: Patient is intermittently going into A-fib with RVR Currently rate controlled on amiodarone 400 mg p.o. twice daily and cardizem 30 mg p.o. every 6H On therapeutic anticoagulation with Lovenox. We will switch to p.o. anticoagulation on discharge History of hypertension: Continue clonidine and hydralazine Mild mitral stenosis: Mitral valve mean gradient is 12.8,?mmHg.? The mitral valve area by pressure half-time is 2.14 cm squared.? Peak velocity across the mitral valve was 2.95 m/s. Cardiology on board Left lower quadrant abdominal pain: CT abdomen and pelvis showed: No acute intra abdominal or pelvic pathology. Monitor for now CODE STATUS:AND DVT prophylaxis : on heparin gtt Plan for today: continue lasix drip, montior renal function and urine output Attestations Medical Necessity Statement*: ongoing lasix gtt and heparin drip, monitor renal function Coding Level of Care Code Acute Code for [facility] Diagnoses Atrial fibrillation I48.91 NSTEMI (non-ST elevated myocardial infarction) I21.4 Pleural effusion J90 Mitral stenosis I05.0 HTN (hypertension) I10 Acute diastolic CHF (congestive heart failure) I50.31 Type 2 diabetes mellitus E11.65; Z79.4 Diabetes mellitus complication status: with hyperglycemia Diabetes mellitus care home insulin use: with care home use Pneumonia J18.9
[2022-10-24] VITALS (20 sets, daily range): BP systolic 123–171; BP diastolic 48–89; PULSE 62–77; RESP 15–29; TEMP 36.6–37.1; O2SAT 90–100
[2022-10-24] MEDS: dilTIAZem 30 mg Tablet PO ×4 (00:02→17:28)
[2022-10-24] MEDS: ipratropium-albuterol 3 mL Neb INHALATION ×4 (02:02→20:23)
[2022-10-24 05:33] LABS: Basophils % 0.3 %; Eosinophils # 0.1 10^3/uL (0.0-0.8); Hematocrit 24.8 % (37.0-47.0); Hemoglobin 7.7 g/dL (11.5-15.3); Lymphocytes # 0.7 10^3/uL (0.8-4.8); Lymphocytes % 9.2 %; Mean Corpuscular Hemoglobin 29.8 pg (28.0-34.0); Mean Corpuscular Volume 96.1 fl (81-99); Mean Platelet Volume 10.5 fL (7.4-10.4); Monocytes # 0.6 10^3/uL (0.2-0.9); Monocytes % 7.2 %; Neutrophils # 6.23 10^3/uL (1.8-7.7); Neutrophils % 81.6 %; Nucleated Red Blood Cells % 0 %; Platelet Count 156 10^3/cmm (130-400); Red Blood Count 2.58 10^6/uL (4.1-5.3); White Blood Count 7.6 10^3/uL (4.0-10.0)
[2022-10-24 05:39] LABS: Alanine Aminotransferase 14 U/L (0-33); Albumin Level 3.5 g/dL (3.5-5.2); Alkaline Phosphatase 61 U/L (35-105); Anion Gap 13.5 (5-19); Aspartate Amino Transferase 14 U/L (0-32); Blood Urea Nitrogen 33 mg/dL (8-23); Calcium 9.8 mg/dL (8.5-10.5); Carbon Dioxide 31 mmol/L (22-29); Chloride 91 mmol/L (98-107); Globulin 2.7 g/dL (1.3-4.6); Glucose 183 mg/dL (65-115); Magnesium 1.9 mg/dL (1.7-2.3); Osmolality Calculated 286 mOsm/kg (285-295); Phosphorus 3.5 mg/dL (2.5-4.5); Potassium 3.5 mmol/L (3.5-5.1); Sodium 132 mmol/L (136-145); Total Bilirubin 0.3 mg/dL (0.15-1.2); Total Protein 6.2 g/dL (6.6-8.7)
[2022-10-24] MEDS: FUROsemide 100 MG in sodium chloride 0.9% 40 ML IV (05:42)
[2022-10-24] MEDS: gabapentin 100 mg Capsule PO ×2 (05:43→20:22)
[2022-10-24 05:51] LABS: Partial Thromboplastin Time 147.3 SECONDS (23.9-36.7)
[2022-10-24 05:59] LABS: Glucose Point of Care 227 mg/dL (70-110)
[2022-10-24] MEDS: insulin lispro 100 unit/1 mL SUBCUT ×4 (08:10→21:26)
[2022-10-24] MEDS: ferrous sulfate EC 325 mg Tablet PO ×2 (08:11→14:28)
[2022-10-24] MEDS: cholecalciferol (vitamin D3) 1,000 unit Tablet 1000 UNIT PO (08:11)
[2022-10-24] MEDS: hyDRALAzine 25 mg Tablet PO ×3 (08:11→20:22)
[2022-10-24] MEDS: amiodarone 200 mg Tablet 400 MG PO ×2 (08:11→17:28)
[2022-10-24] MEDS: metOLazone 5 MG Tablet PO (08:11)
[2022-10-24] MEDS: lipase-protease-amylase Capsule 2 EACH PO ×2 (08:11→12:13)
[2022-10-24] MEDS: clotrimazole 1% cream 30 gm 1 APPLIC TOPICAL (08:12)
[2022-10-24] MEDS: pantoprazole DR 40 mg Tablet PO (08:12)
[2022-10-24] MEDS: aspirin 81 mg Chew Tablet PO (08:12)
[2022-10-24] MEDS: dorzolamide 2% Op Soln 10 mL Btl 1 DROP EYE-BOTH ×2 (08:12→20:22)
[2022-10-24] MEDS: acetaminophen 325 mg Tablet 650 MG PO (08:38)
--- NOTE | 2022-10-24 08:52 | PM.PN ---
Subjective Subjective: feels better. good uop. is eating and drinking. denies n/v/f/c/mercado/d dec sob. Medications: Reviewed: Yes Medication Review Details: Current Medications Acetaminophen (Acetaminophen 325 Mg Tablet) 650 mg PO Q6H PRN PRN Reason: Mild/Mod Pain Or Temp >/= 101 Last Admin: 10/24/22 08:38 Dose: 650 mg Albuterol/Ipratropium (Ipratropium-Albuterol 3 Ml Neb) 3 ml INHALATION Q6H.RESP [facility] Last Admin: 10/24/22 08:45 Dose: 3 ml Amiodarone HCl (Amiodarone 200 Mg Tablet) 400 mg PO BID [facility] Last Admin: 10/24/22 08:11 Dose: 400 mg Lipase/Protease/Amylase (Oyofqx-Wvxjhdpv-Qpjdzpd Capsule) 2 each PO TIDWM [facility] Last Admin: 10/24/22 08:11 Dose: 2 each Aspirin (Aspirin 81 Mg Chew Tablet) 81 mg PO DAILY [facility] Last Admin: 10/24/22 08:12 Dose: 81 mg Atorvastatin Calcium (Atorvastatin 40 Mg Tablet) 20 mg PO BEDTIME [facility] Last Admin: 10/23/22 20:48 Dose: 20 mg Bisacodyl (Bisacodyl 5 Mg Tablet) 10 mg PO DAILY PRN; Protocol PRN Reason: Constipation (see protocol) Cilostazol (Cilostazol 100 Mg Tablet) 100 mg PO BID@0900,2100 [facility] Last Admin: 10/19/22 08:45 Dose: 100 mg Clotrimazole (Clotrimazole 1% Cream 30 Gm) 1 applic TOPICAL BID [facility] Last Admin: 10/24/22 08:12 Dose: 1 applic Dextrose (Dextrose 50% Syringe 50 Ml) 50 ml IVP PRN PRN; Protocol PRN Reason: hypoglycemia protocol Dextrose (Dextrose 50% Syringe 50 Ml) 25 ml IVP ONCE PRN; Protocol PRN Reason: hypoglycemia protocol Diltiazem HCl (Diltiazem 30 Mg Tablet) 30 mg PO Q6H [facility] Last Admin: 10/24/22 05:43 Dose: 30 mg Dorzolamide HCl (Dorzolamide 2% Op Soln 10 Ml Btl) 1 drop EYE-BOTH BID@0900,2100 [facility] Last Admin: 10/24/22 08:12 Dose: 1 drop Ferrous Sulfate (Ferrous Sulfate Ec 325 Mg Tablet) 325 mg PO TID [facility] Last Admin: 10/24/22 08:11 Dose: 325 mg Furosemide (Furosemide 10 Mg/Ml Sdv 4ml) 40 mg IVP Q24H [facility] Gabapentin (Gabapentin 100 Mg Capsule) 100 mg PO QAM&BEDTIME [facility] Last Admin: 10/24/22 05:43 Dose: 100 mg Glucagon (Glucagon 1 Mg/Ml Inj 1 Ml) 1 mg IM ONCE PRN; Protocol PRN Reason: Adult Acute Hypoglycemia Prot. Heparin Sodium (Porcine) (Heparin 5,000 Unit/Ml Inj 1 Ml) 0 unit IV PRN PRN; Protocol PRN Reason: Heparin weight-base protocol Last Admin: 10/23/22 16:43 Dose: 5,800 unit Hydralazine HCl (Hydralazine 25 Mg Tablet) 25 mg PO TID [facility] Last Admin: 10/24/22 08:11 Dose: 25 mg Dextrose (D5w) 500 mls @ 100 mls/hr IV ONCE PRN; Protocol PRN Reason: Adult Acute Hypoglycemia Prot Amiodarone HCl 900 mg/Dextrose/ IV Miscellaneous Supplies 518 mls @ 0 mls/hr IV .Q0M [facility]; Protocol Last Titration: 10/21/22 08:15 Dose: Infused Heparin Sodium/Sodium Chloride (Heparin Drip) 25,000 unit in 500 mls @ 0 mls/hr IV .Q0M [facility]; Protocol Last Titration: 10/24/22 05:58 Dose: 8.74 unit/kg/hr, 20 mls/hr Insulin Glargine (Insulin Glargine 100 Units/1 Ml) 30 unit SUBCUT BEDTIME [facility] Last Admin: 10/23/22 20:49 Dose: 30 unit Insulin Human Lispro (Insulin Lispro 100 Unit/1 Ml) 0 unit SUBCUT WM&BEDTIME [facility]; Protocol Last Admin: 10/24/22 08:10 Dose: 8 unit Metolazone (Metolazone 5 Mg Tablet) 5 mg PO DAILY [facility] Last Admin: 10/24/22 08:11 Dose: 5 mg Morphine Sulfate (Morphine 4 Mg/Ml Sdv 1 Ml) 2 mg IVP Q8H PRN PRN Reason: SEVERE PAIN Last Admin: 10/22/22 17:10 Dose: 2 mg Non-Formulary Medication (Umeclidinium-Vilanterol [Anoro Ellipta]) 2 each INHALATION DAILY [facility] Pantoprazole Sodium (Pantoprazole Dr 40 Mg Tablet) 40 mg PO DAILY [facility] Last Admin: 10/24/22 08:12 Dose: 40 mg Vitamin D (Cholecalciferol (Vitamin D3) 1,000 Unit Tablet) 1,000 unit PO DAILY [facility] Last Admin: 10/24/22 08:11 Dose: 1,000 unit Vitals/I&O/Wt Last Vital Signs Temp 98.6 F 10/24/22 07:32 Pulse 70 10/24/22 08:00 Resp 20 H 10/24/22 08:00 BP 132/89 10/24/22 07:32 Pulse Ox 98 10/24/22 08:00 O2 Del Method Nasal Cannula 10/24/22 08:00 O2 Flow Rate 3 10/24/22 08:00 FiO2 30 10/24/22 05:45 10/23/22 10/24/22 10/24/22 22:59 06:59 14:59 Intake Total 439.467 / 1519.467 231.567 / 1751.034 360 / 360 Output Total 1050 / 2150 1600 / 3750 Balance -610.533 / -630.533 -1368.433 / -1998.966 360 / 360 Weight last 48 hrs Weight 111.13 kg Weight 112.661 kg Weight 114.475 kg Physical Exam Narrative: obese in bed, on nc 02 vs noted heent- nc/at, eomi, anicteric neck supple lungs dull bases, improved air movement b/l heart reg, +MICHAEL abd soft, nt, nd, + bs ext- 1+ b/l leg edema neuro- a,a, o x 3 examined by RN- telehealth visit Urinary Catheter Management: Bocanegra: Cath Placed During This Visit: no Reason for Continuing Indwelling Catheter: Accurate Measurement of Urinary Output in Critically Ill Patients Data 10/24/22 04:53 10/24/22 04:53 A&P Assessment and plan (1) MATTIE (acute kidney injury): 82 yr old female obesity, COPD, Pulm HTN, a fib, DM, home 02 dep, HFpEF, + NSTEMI. pt here w/ sob, and is DNI/ DNR 1. MATTIE- likely from diuretics and and [address] scans- recommend- repeat ua, urine lytes, ur pr cr -renal us- normal, no hydronephrosis -she responded to iv lasix drip- will dec to 40 mg iv daily and monitor -support BP -maintain NSR - vanco level 14.5. all abx have been stopped -monitro chemistries and uop 2. hyponatremia from mattie- improving as mattie improves and w/ diuresis- will monitor 3. ELMER- give venofer. monitor hgb 4. replete k time spent 30+ minutes seen and examined w/ RN- telehealth visit Plan as above Attestations Medical Necessity Statement*: anemia, chf, mattie on ckd Time Spent in Patient Care: 16 - 35 minutes (>than 50% of time spent in counselling and/or direct pt care on unit). Coding Level of Care Code Acute Code for [facility] Diagnoses MATTIE (acute kidney injury) N17.9
[2022-10-24] MEDS: potassium chloride ER 20 mEq Tablet 40 MEQ PO (10:19)
[2022-10-24] MEDS: ferric gluconate 125 MG in sodium chloride 0.9% (100 ml) 100 ML 110 MG IV (10:19)
[2022-10-24 12:08] LABS: Glucose Point of Care 345 mg/dL (70-110)
[2022-10-24] MEDS: FUROsemide 10 mg/mL SDV 4mL 40 MG IVP (12:13)
[2022-10-24 12:44] LABS: Partial Thromboplastin Time 105.9 SECONDS (23.9-36.7)
[2022-10-24] MEDS: heparin drip 25,000 UNIT/500 ML PREMIX 14 UNIT IV (14:22)
[2022-10-24] MEDS: morphine 4 mg/mL SDV 1 mL 2 MG IVP (16:17)
--- NOTE | 2022-10-24 16:47 | P.PN_ITS ---
Subjective Subjective: Creatinine improving today to 2.0. Urine output 3.5 L over last 24 hours. Currently on normal saline at 50 cc an hour. Lasix drip has been discontinued. Patient is concerned about swelling that she has only noted today over her right neck and shoulder. Upon examination she appears to have a symmetric fat pad over bilateral neck, however given interim development of pain will perform ultrasound to it evaluate for any underlying DVT or thrombophlebitis. Vitals/I&O/Wt Last Vital Signs Temp 98.5 F 10/24/22 16:00 Pulse 76 10/24/22 16:00 Resp 18 10/24/22 16:17 BP 144/77 10/24/22 16:00 Pulse Ox 90 10/24/22 16:00 O2 Del Method Nasal Cannula 10/24/22 16:00 O2 Flow Rate 3 10/24/22 14:00 FiO2 30 10/24/22 14:44 10/24/22 10/24/22 10/24/22 06:59 14:59 22:59 Intake Total 231.567 / 5740.129 6184.966 / 1068.966 Output Total 1600 / 3750 1400 / 1400 Balance -1368.433 / -1553.994 2458.966 / 1068.966 -1400 / -331.034 Weight last 48 hrs Weight 111.13 kg Weight 112.661 kg Physical Exam Narrative: General: No acute distress, AO x3, chronically ill appearing lady, sitting in chair today at the time of examination. HEENT: PERRLA, pupils bilaterally equal and reactive, pallors not present Chest: Normal vesicular breath sounds, no added sounds, equal good air entry bilaterally CVS: S1-S2 regular, no murmurs, no tachycardia, no gallops, no rubs Abdomen: Soft, nontender, no organomegaly, bowel sounds present Urinary Catheter Management: Bocanegra: Cath Placed During This Visit: no Reason for Continuing Indwelling Catheter: Accurate Measurement of Urinary Output in Critically Ill Patients Data 10/24/22 04:53 10/24/22 04:53 A&P Assessment and plan (1) Atrial fibrillation: (2) NSTEMI (non-ST elevated myocardial infarction): (3) Pleural effusion: (4) Mitral stenosis: (5) HTN (hypertension): (6) Acute diastolic CHF (congestive heart failure): (7) Type 2 diabetes mellitus: Qualifiers: Diabetes mellitus complication status: with hyperglycemia Diabetes mellitus field secretary insulin use: with field secretary use Qualified Code(s): E11.65 - Type 2 diabetes mellitus with hyperglycemia; Z79.4 - drawer in 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 CT of the abdomen and pelvis was overall unremarkable. Currently admitted and being managed for: # NSTEMI: EKG atrial fibrillation. Troponin trend: 108-147 --> 162 2D echo: Normal LV size and systolic function with EF of 64%, no RWMA Currently on ACS protocol with ASA 81mg po daily, atorvastatin, lovenox 110mg q24h (renally dosed)---> change lovenox to iv heparin gtt We will discontinue heparin drip today as hemoglobin noted to be drifting down to 7.7. Continue telemetry monitoring Cardiology consult appreciated unable to undego cardiac cath due to MATTIE # Decompensated heart failure with preserved ejection fraction: Patient has bilateral pleural effusion, worsening shortness of breath, orthopnea MATTIE is currently improving, diuresis has been restarted with Lasix 40 mg IV every 24 hours and also metolazone has been resumed. Creatinine currently improving at 2.0. Good urine output overall. Possible underlying pneumonia: The clinical suspicion is low. X-ray chest: patchy opacity involving the right lung base up to the hilar level with similar right perihilar change. The opacity is greatest in the lower base which is probably due to pleural effusion There is retrocardiac medial left basal opacity in addition to blunting of the costophrenic angle indicating small effusion. CT angio chest : ?Negative for pulmonary embolus.Moderate bilateral pleural effusions.Patchy bilateral dependent airspace infiltrates.?Enlarged right hilar 2.8 cm lymph node with scattered prominent additional subcentimeter lymph nodes throughout the mediastinum, nonspecific. Completed a 6-day presumptive course with piperacillin/tazobactam. Antibiotics discontinued, no signs of infection. # MATTIE on CKD: Possibly multifactorial secondary to aggressive diuresis, contrast studies Creatinine now improving at 2.0. Appreciate nephrology recommendations Diuresis has been resumed. Severe pulmonary hypertension: Pulmonary artery peak systolic pressure 73 mmHg. Pulmonary follow-up as outpatient History of diabetes: Continue sliding scale insulin, monitor fingerstick glucose History of atrial fibrillation: Patient is intermittently going into A-fib with RVR Currently rate controlled on amiodarone 400 mg p.o. twice daily and cardizem 30 mg p.o. every 6H Anticoagulation discontinued today as hemoglobin noted to be drifting down to 7.7. Anemia: Baseline hemoglobin upon admission was at 10. Slowly drifting down during the c ourse of admission from 8.7 then 8.2 and now 7.7. We will discontinue anticoagulation. Check fecal occult blood. Patient was receiving p.o. ferrous sulfate 3 times a day, now also started on IV iron supplementation by nephrology, will discontinue oral supplementation while IV is going. History of hypertension: Continue clonidine and hydralazine Mild mitral stenosis: Mitral valve mean gradient is 12.8,?mmHg.? The mitral valve area by pressure half-time is 2.14 cm squared.? Peak velocity across the mitral valve was 2.95 m/s. Cardiology on board Patient concerned about developing swelling bilaterally around her neck. On examination appears to be symmetric fat, however stating that the right side is painful today. Review of records shows that patient has a known hypoechoic solid nodule in the right mid thyroid lobe, I suspect patient is referring to the same swelling. However given that she is now complaining of pain will evaluate for any underlying thrombophlebitis or DVT on the right side. CODE STATUS:AND DVT prophylaxis : On hold today given following hemoglobin PUD prophylaxis: Protonix Attestations Medical Necessity Statement*: Diuretics resumed, monitor kidney function closely, following hemoglobin, will need to serially trend, discontinue anticoagulation Coding Level of Care Code Acute Code for [facility] Diagnoses Atrial fibrillation I48.91 NSTEMI (non-ST elevated myocardial infarction) I21.4 Pleural effusion J90 Mitral stenosis I05.0 HTN (hypertension) I10 Acute diastolic CHF (congestive heart failure) I50.31 Type 2 diabetes mellitus E11.65; Z79.4 Diabetes mellitus complication status: with hyperglycemia Diabetes mellitus field secretary insulin use: with field secretary use Pneumonia J18.9
--- NOTE | 2022-10-24 17:01 | USCV_ITS ---
Beth Winkler Age: 82 Gender: F : 1940 Exam Date: 10/24/2022 18:17 Ordering Phys: Agnes Hackett MD Technologist: LIBERTY Exam Location: [facility] Indication: painful RIGHT upper arm and neck. No history of DVT per patient. HISTORY: painful RIGHT upper arm and neck. No history of DVT per patient. PROCEDURES: Venous duplex imaging was performed in only the right upper extremity. The following venous structures were evaluated: internal jugular vein, subclavian vein, axillary vein, and brachial veins. In addition, the basilic vein, cephalic vein, radial veins, and ulnar veins were imaged. Serial compression, augmentation maneuvers, and spectral Doppler flow evaluation were performed. FINDINGS: No evidence of deep vein thrombosis or superficial thrombophlebitis in the right upper extremity. CONCLUSIONS No right upper extremity DVT. Dr. Yaa Garcia DO (Electronically Signed) Final Date: 25 October 2022 07:17 S
[2022-10-24 17:07] LABS: Glucose Point of Care 380 mg/dL (70-110)
[2022-10-24] MEDS: atorvastatin 40 mg Tablet 20 MG PO (20:22)
[2022-10-24 21:02] LABS: Glucose Point of Care 320 mg/dL (70-110)
[2022-10-24] MEDS: insulin glargine 100 units/1 mL 30 UNIT SUBCUT (21:27)
[2022-10-25] VITALS (16 sets, daily range): BP systolic 134–159; BP diastolic 52–68; PULSE 64–72; RESP 16–26; TEMP 36.5–37; O2SAT 92–100; BMI 49.4
[2022-10-25] MEDS: dilTIAZem 30 mg Tablet PO ×4 (00:18→17:36)
--- NOTE | 2022-10-25 01:12 | PM.PN ---
Subjective Subjective: (Please consider note for 10/24/2022 as documentation was missed) Patient feeling much better. Now on nasal cannula. Has been diuresing well. Vitals/I&O/Wt Last Vital Signs Temp 98.1 F 10/24/22 23:59 Pulse 62 10/24/22 23:59 Resp 29 H 10/24/22 23:59 BP 123/77 10/24/22 23:59 Pulse Ox 97 10/24/22 23:59 O2 Del Method Nasal Cannula 10/24/22 20:32 O2 Flow Rate 2 10/24/22 20:32 FiO2 30 10/24/22 20:33 10/24/22 10/24/22 10/25/22 14:59 22:59 06:59 Intake Total 1068.966 / 1068.966 830 / 1898.966 Output Total 2600 / 2600 Balance 1068.966 / 1068.966 -1770 / -701.034 Weight last 48 hrs Weight 245 lb Weight 248 lb 6 oz Physical Exam Narrative: GENERAL: Patient is alert, awake and oriented x3. [] NECK: No jugular vein distension. [] HEENT: No cyanosis. No icterus. No pallor. [] HEART: Irregularly irregular LUNGS: Diminished air entry. CENTRAL NERVOUS SYSTEM: Grossly nonfocal. [] EXTREMITIES: Lower extremities with 1+ edema bilaterally. Urinary Catheter Management: Bocanegra: Cath Placed During This Visit: no Reason for Continuing Indwelling Catheter: Accurate Measurement of Urinary Output in Critically Ill Patients Data 10/24/22 04:53 10/24/22 04:53 A&P Assessment and plan (1) NSTEMI (non-ST elevated myocardial infarction): (2) Atrial fibrillation: (3) Pneumonia: (4) Mitral stenosis: (5) HTN (hypertension): (6) Pulmonary edema: Qualifiers: Chronicity: acute Qualified Code(s): J81.0 - Acute pulmonary edema (7) Type 2 diabetes mellitus: Qualifiers: Diabetes mellitus complication status: with hyperglycemia Diabetes mellitus mcfp insulin use: with mcfp use Qualified Code(s): E11.65 - Type 2 diabetes mellitus with hyperglycemia; Z79.4 - care home (current) use of insulin Plan Patient is diuresing well and renal function continues to improve. Continue with close I and Os Patient is back in normal sinus rhythm. Continue current medications. Hgb is dropping. Can hold anticoagulation if continues to drop We will manage her troponin elevation medically at this time. Had a discussion with patient regarding options and she wants to proceed with medical therapy. Also JORGE can be done as outpatient,given discrepancy in the mitral valve area and mean gradient across it. Thank you for involving us with care of this patient. We will continue to follow. Please call with questions. Attestations Medical Necessity Statement*: Care expected to cross 2 midnights. Coding Level of Care Code Acute Code for [facility] Fwd Diagnoses NSTEMI (non-ST elevated myocardial infarction) I21.4 Atrial fibrillation I48.91 Pneumonia J18.9 Mitral stenosis I05.0 HTN (hypertension) I10 Pulmonary edema J81.0 Chronicity: acute Type 2 diabetes mellitus E11.65; Z79.4 Diabetes mellitus complication status: with hyperglycemia Diabetes mellitus exterminator helper termite insulin use: with exterminator helper termite use
[2022-10-25 04:13] LABS: Basophils % 0.4 %; Eosinophils # 0.1 10^3/uL (0.0-0.8); Eosinophils % 0.8 %; Hematocrit 25.7 % (37.0-47.0); Hemoglobin 7.7 g/dL (11.5-15.3); Lymphocytes # 0.8 10^3/uL (0.8-4.8); Mean Corpuscular Hemoglobin 29.7 pg (28.0-34.0); Mean Corpuscular Volume 99.2 fl (81-99); Mean Platelet Volume 10.5 fL (7.4-10.4); Monocytes # 0.8 10^3/uL (0.2-0.9); Neutrophils # 6.63 10^3/uL (1.8-7.7); Neutrophils % 79.2 %; Nucleated Red Blood Cells % 0.4 %; Platelet Count 171 10^3/cmm (130-400); Red Blood Count 2.59 10^6/uL (4.1-5.3); Red Cell Distribution Width 14.4 % (12.1-15.1); White Blood Count 8.4 10^3/uL (4.0-10.0)
[2022-10-25 04:35] LABS: Alanine Aminotransferase 16 U/L (0-33); Albumin Level 3.4 g/dL (3.5-5.2); Alkaline Phosphatase 68 U/L (35-105); Aspartate Amino Transferase 13 U/L (0-32); Blood Urea Nitrogen 35 mg/dL (8-23); Calcium 10.2 mg/dL (8.5-10.5); Carbon Dioxide 33 mmol/L (22-29); Chloride 92 mmol/L (98-107); Glucose 267 mg/dL (65-115); Magnesium 1.9 mg/dL (1.7-2.3); Osmolality Calculated 295 mOsm/kg (285-295); Phosphorus 2.7 mg/dL (2.5-4.5); Sodium 134 mmol/L (136-145); Total Bilirubin 0.3 mg/dL (0.15-1.2); Total Protein 6.4 g/dL (6.6-8.7)
[2022-10-25] MEDS: gabapentin 100 mg Capsule PO ×2 (05:46→20:35)
[2022-10-25 06:35] LABS: Glucose Point of Care 315 mg/dL (70-110)
[2022-10-25] MEDS: ipratropium-albuterol 3 mL Neb INHALATION ×3 (08:11→19:30)
[2022-10-25] MEDS: insulin lispro 100 unit/1 mL SUBCUT ×4 (08:29→21:26)
[2022-10-25] MEDS: aspirin 81 mg Chew Tablet PO (08:29)
[2022-10-25] MEDS: hyDRALAzine 25 mg Tablet PO ×3 (08:30→20:35)
[2022-10-25] MEDS: dorzolamide 2% Op Soln 10 mL Btl 1 DROP EYE-BOTH ×2 (08:30→20:34)
[2022-10-25] MEDS: pantoprazole DR 40 mg Tablet PO (08:30)
[2022-10-25] MEDS: cholecalciferol (vitamin D3) 1,000 unit Tablet 1000 UNIT PO (08:30)
[2022-10-25] MEDS: metOLazone 5 MG Tablet PO (08:30)
[2022-10-25] MEDS: clotrimazole 1% cream 30 gm 1 APPLIC TOPICAL (08:30)
[2022-10-25] MEDS: amiodarone 200 mg Tablet 400 MG PO ×2 (08:30→17:37)
[2022-10-25] MEDS: acetaminophen 325 mg Tablet 650 MG PO (08:36)
[2022-10-25] MEDS: lipase-protease-amylase Capsule 2 EACH PO ×3 (08:36→17:37)
--- NOTE | 2022-10-25 08:37 | PM.PN ---
Subjective Subjective: Beth is 82 years old and has been quite ill recently. She was admitted over a week ago on the with shortness of breath, nausea, abdominal pain and paroxysmal nocturnal dyspnea. She had a CT of her abdomen and pelvis initially which was negative. Her chest x-ray suggested heart failure with a pleural effusion. She was in atrial fibrillation her troponin was elevated. Cardiology was asked to see her the following day on the . Her echo showed well-preserved left ventricular function but severe pulmonary hypertension and questionable mild mitral stenosis. She is assumed to have pneumonia. During the ensuing several days of treatment her creatinine went up and she was in and out of atrial fibrillation. Consideration was being given for coronary angiography with right heart catheterization but it was put on hold because of her increasing renal insufficiency. She was placed on amiodarone. Several days into her hospitalization she had a CTA which worsened her kidney function. She was seen by nephrology on the . It has now been decided to attempt to treat her medically. She remains in sinus rhythm now and her kidney function is improving. Her creatinine is now down to 1.5. Her hemoglobin has begun to drop and is now at 7.7. She has a long list of complex medical problems including renal insufficiency, anemia, diabetes, myelodysplastic syndrome, peripheral arterial disease, sleep apnea, dyslipidemia, oxygen dependent COPD and carotid stenosis. Today she tells me she does not feel good but she cannot tell me why she does not feel good. She is eating her breakfast as I visit with her. She does not appear to be short of breath. She is not having chest pain. Her abdominal pain seems to have resolved. Currently she is on low-dose aspirin, statin, cilostazol, hydralazine, metolazone 5 mg daily, diltiazem, amiodarone and IV Lasix. Vitals/I&O/Wt Last Vital Signs Temp 98.6 F 10/25/22 07:54 Pulse 68 10/25/22 08:17 Resp 21 H 10/25/22 08:13 BP 134/52 10/25/22 07:54 Pulse Ox 98 10/25/22 08:13 O2 Del Method Nasal Cannula 10/25/22 08:13 O2 Flow Rate 3 10/25/22 08:13 FiO2 30 10/25/22 03:26 10/24/22 10/25/22 10/25/22 22:59 06:59 14:59 Intake Total 830 / 1898.966 300 / 2198.966 Output Total 2600 / 2600 1000 / 3600 Balance -1770 / -701.034 -700 / -1401.034 Weight last 48 hrs Weight 245 lb Weight 245 lb Weight 248 lb 6 oz Physical Exam Narrative: GENERAL: In general she is comfortable sitting upright in bed HEENT: Exam within normal limits. NECK: Supple without jugular vein distention. The carotid upstroke is normal without bruits. BACK: Exam normal. LUNGS: Clear. Diminished breath sounds HEART: Regular rate and rhythm. ABDOMEN: Benign without organomegaly or tenderness. EXTREMITIES: No edema. NEUROLOGIC: Exam normal. SKIN: Unremarkable. Urinary Catheter Management: Bocanegra: Cath Placed During This Visit: no Reason for Continuing Indwelling Catheter: Accurate Measurement of Urinary Output in Critically Ill Patients Data 10/25/22 03:41 10/25/22 03:41 A&P Assessment and plan (1) Mitral stenosis: (2) Pneumonia: (3) NSTEMI (non-ST elevated myocardial infarction): (4) Atrial fibrillation: (5) Pleural effusion: (6) MATTIE (acute kidney injury): (7) HTN (hypertension): (8) Acute diastolic CHF (congestive heart failure): (9) Type 2 diabetes mellitus: Qualifiers: Diabetes mellitus complication status: with hyperglycemia Diabetes mellitus long term acute care registered nurse insulin use: with penitentiary use Qualified Code(s): E11.65 - Type 2 diabetes mellitus with hyperglycemia; Z79.4 - long term acute care registered nurse (current) use of insulin (10) Myelodysplasia (myelodysplastic syndrome): (11) Anemia: (12) Carotid artery disease: Qualifiers: Carotid artery disease type: stenosis Laterality: bilateral Qualified Code(s): I65.23 - Occlusion and stenosis of bilateral carotid arteries (13) Dyslipidemia: (14) PAD (peripheral artery disease): (15) Pulmonary HTN: (16) Sleep apnea: Plan We will continue to try to treat her medically. At this time there is no indication for coronary angiography or other invasive testing. Attestations Medical Necessity Statement*: Requires hospitalization for management of a multitude of medical problems listed above. and High Time for a total of 60 minutes, includes reviewing past or interval history, examining/interviewing patient, placing orders, counseling patient/family/other support, updating patient/family/other support, discussing plan of care with staff, communicating with other healthcare providers, documenting encounter and coordinating care Diagnoses Mitral stenosis I05.0 Pneumonia J18.9 NSTEMI (non-ST elevated myocardial infarction) I21.4 Atrial fibrillation I48.91 Pleural effusion J90 MATTIE (acute kidney injury) N17.9 HTN (hypertension) I10 Acute diastolic CHF (congestive heart failure) I50.31 Type 2 diabetes mellitus E11.65; Z79.4 Diabetes mellitus complication status: with hyperglycemia Diabetes mellitus penitentiary insulin use: with long term acute care registered nurse use Myelodysplasia (myelodysplastic syndrome) D46.9 Anemia D64.9 Carotid artery disease I65.23 Carotid artery disease type: stenosis Laterality: bilateral Dyslipidemia E78.5 PAD (peripheral artery disease) I73.9 Pulmonary HTN I27.20 Sleep apnea G47.30
[2022-10-25] MEDS: ferric gluconate 125 MG in sodium chloride 0.9% (100 ml) 100 ML 110 MG IV (10:42)
[2022-10-25] MEDS: FUROsemide 10 mg/mL SDV 4mL 40 MG IVP (11:47)
[2022-10-25 12:00] LABS: Glucose Point of Care 382 mg/dL (70-110)
--- NOTE | 2022-10-25 14:47 | P.PN_ITS ---
Subjective Subjective: Hemoglobin stable at 7.7. Anticoagulation was discontinued yesterday. Kidney function is improving with creatinine at 1.5 today. Denies any current chest pain. Medications: Reviewed: Yes Vitals/I&O/Wt Last Vital Signs Temp 97.9 F 10/25/22 12:00 Pulse 68 10/25/22 13:43 Resp 18 10/25/22 13:36 BP 148/57 10/25/22 12:00 Pulse Ox 98 10/25/22 13:36 O2 Del Method Nasal Cannula 10/25/22 13:36 O2 Flow Rate 3 10/25/22 13:36 FiO2 30 10/25/22 03:26 10/24/22 10/25/22 10/25/22 22:59 06:59 14:59 Intake Total 830 / 1898.966 300 / 2198.966 470 / 470 Output Total 2600 / 2600 1000 / 3600 Balance -1770 / -701.034 -700 / -1401.034 470 / 470 Weight last 48 hrs Weight 111.13 kg Weight 111.13 kg Physical Exam Narrative: General: No acute distress, AO x3, chronically ill appearing lady, sitting in chair today at the time of examination. HEENT: PERRLA, pupils bilaterally equal and reactive, pallors not present Chest: Normal vesicular breath sounds, no added sounds, equal good air entry bilaterally CVS: S1-S2 regular, no murmurs, no tachycardia, no gallops, no rubs Abdomen: Soft, nontender, no organomegaly, bowel sounds present Urinary Catheter Management: Bocanegra: Cath Placed During This Visit: no Reason for Continuing Indwelling Catheter: Accurate Measurement of Urinary Output in Critically Ill Patients Data 10/25/22 03:41 10/25/22 03:41 A&P Assessment and plan (1) Atrial fibrillation: (2) NSTEMI (non-ST elevated myocardial infarction): (3) Pleural effusion: (4) Mitral stenosis: (5) HTN (hypertension): (6) Acute diastolic CHF (congestive heart failure): (7) Type 2 diabetes mellitus: Qualifiers: Diabetes mellitus complication status: with hyperglycemia Diabetes mellitus buttermaker continuous churn insulin use: with buttermaker continuous churn use Qualified Code(s): E11.65 - Type 2 diabetes mellitus with hyperglycemia; Z79.4 - bed bug exterminator (current) use of insulin (8) Pneumonia: Plan Beth Winkler is a 82 year old female with PMH of COPD on 2 Ls oxygen at home, DM, PVD, HFpEF,?atrial fibrillation, was brought in on October 16, 2022 with chief complaint of acute onset of left lower quadrant abdominal pain, associated with some nausea no vomiting, she was also complaining of worsening shortness of breath, orthopnea going on for the last few days, she denied any fever chills cough, chest pain, vomiting. CT of the abdomen and pelvis was overall unremarkable. Currently his active issues are MATTIE from which she is currently recovering, decompensated heart failure and recent NSTEMI. # NSTEMI: EKG atrial fibrillation. Troponin trend: 108-147 --> 162 2D echo: Normal LV size and systolic function with EF of 64%, no RWMA Currently on ACS protocol with ASA 81mg po daily, atorvastatin A/c discontinued due to hb drop to 7.7 Continue telemetry monitoring Cardiology consult appreciated unable to undego cardiac cath due to MATTIE , will be followed up closely as outpatient. # Decompensated heart failure with preserved ejection fraction: Patient has bilateral pleural effusion, worsening shortness of breath, orthopnea Currently on Lasix 40 mg IV every day and metolazone 5 mg p.o. daily. Renal function is currently improving # Possible underlying pneumonia: The clinical suspicion is low. X-ray chest: patchy opacity involving the right lung base up to the hilar level with similar right perihilar change. The opacity is greatest in the lower base which is probably due to pleural effusion There is retrocardiac medial left basal opacity in addition to blunting of the costophrenic angle indicating small effusion. CT angio chest : ?Negative for pulmonary embolus.Moderate bilateral pleural effusions.Patchy bilateral dependent airspace infiltrates.?Enlarged right hilar 2.8 cm lymph node with scattered prominent additional subcentimeter lymph nodes throughout the mediastinum, nonspecific. Completed a 6-day presumptive course with piperacillin/tazobactam. Antibiotics discontinued, no signs of infection. # MATTIE on CKD: Possibly multifactorial secondary to aggressive diuresis, contrast studies Creatinine now improving at 1.5 Appreciate nephrology recommendations Diuresis has been resumed. DC Bocanegra catheter today as MATTIE improving. # Severe pulmonary hypertension: Pulmonary artery peak systolic pressure 73 mmHg. Pulmonary follow-up as outpatient Diuresis has been resumed # History of diabetes: Continue sliding scale insulin, monitor fingerstick glucose Blood sugar currently uncontrolled. Greater than 350 on multiple occasions. Start high-dose insulin sliding scale, currently on a medium scale # History of atrial fibrillation: Patient is intermittently going into A-fib with RVR Currently rate controlled on amiodarone 400 mg p.o. twice daily and cardizem 30 mg p.o. every 6H Anticoagulation discontinued today as hemoglobin noted to be drifting down to 7.7. # Anemia: Baseline hemoglobin upon admission was at 10. Slowly drifting down during the course of admission from 8.7 then 8.2 and now 7.7. stable over last 48 hrs We will discontinue anticoagulation. Check fecal occult blood. Patient was receiving p.o. ferrous sulfate 3 times a day, now also started on IV iron supplementation by nephrology, will discontinue oral supplementation while IV is going. History of hypertension: Continue clonidine and hydralazine Mild mitral stenosis: Mitral valve mean gradient is 12.8,?mmHg.? The mitral valve area by pressure half-time is 2.14 cm squared.? Peak velocity across the mitral valve was 2.95 m/s. Cardiology on board Patient concerned about developing swelling bilaterally around her neck. On examination appears to be symmetric fat, however stating that the right side is painful today. Review of records shows that patient has a known hypoechoic solid nodule in the right mid thyroid lobe, I suspect patient is referring to the same swelling. Right upper extremity DVT was ruled out on her Doppler. CODE STATUS:AND DVT prophylaxis : On hold due to anemia PUD prophylaxis: Protonix Attestations Medical Necessity Statement*: Clinically improving, DC Bocanegra catheter today, if patient continues to feel improved and cr remains stable over the next 24 hours anticipate discharge to home. Coding Level of Care Code Acute Code for g Fwd Diagnoses Atrial fibrillation I48.91 NSTEMI (non-ST elevated myocardial infarction) I21.4 Pleural effusion J90 Mitral stenosis I05.0 HTN (hypertension) I10 Acute diastolic CHF (congestive heart failure) I50.31 Type 2 diabetes mellitus E11.65; Z79.4 Diabetes mellitus complication status: with hyperglycemia Diabetes mellitus penitentiary insulin use: with buttermaker continuous churn use Pneumonia J18.9
[2022-10-25] MEDS: scopolamine 1.5 Patch 1 PATCH TRANSDERMA (15:44)
--- NOTE | 2022-10-25 16:46 | PM.PN ---
Subjective Subjective: feeling beter today; out of bed in chair for most of day Medications: Medication Review Details: IV furosemide, oral metolazone 5 mg daily Vitals/I&O/Wt Last Vital Signs Temp 97.9 F 10/25/22 12:00 Pulse 68 10/25/22 13:43 Resp 18 10/25/22 13:36 BP 148/57 10/25/22 12:00 Pulse Ox 98 10/25/22 13:36 O2 Del Method Nasal Cannula 10/25/22 13:36 O2 Flow Rate 3 10/25/22 13:36 FiO2 30 10/25/22 03:26 10/25/22 10/25/22 10/25/22 06:59 14:59 22:59 Intake Total 300 / 2198.966 710 / 710 Output Total 1000 / 3600 Balance -700 / -1401.034 710 / 710 Weight last 48 hrs Weight 111.13 kg Weight 111.13 kg Physical Exam Const: COMMON NORMALS: no acute distress and alert Extremity: GENERAL: No edema Neuro: SENSORIUM/ORIENTATION: Yes alert Urinary Catheter Management: Perry: Cath Placed During This Visit: no Reason for Continuing Indwelling Catheter: Accurate Measurement of Urinary Output in Critically Ill Patients Data 10/25/22 03:41 10/25/22 03:41 Other data: seen via telemedicine with assistance of RN at bedside A&P Assessment and plan (1) MATTIE (acute kidney injury): Plan 1. Acute kidney injury: diuresing, creatinine improving 2. Hyponatremia, improved 3. Iron deficiency anemia, Hb Stable, receiving IV iron 4. Diabetes, hyperglycemia, receiving insulin Recommend: remove perry tomorrow AM, consider change to oral loop diuretic. Attestations Medical Necessity Statement*: per primary service Time Spent in Patient Care: 16 - 35 minutes Coding Level of Care Code Acute Code for [facility] Fwd Diagnoses MATTIE (acute kidney injury) N17.9
[2022-10-25 17:10] LABS: Glucose Point of Care 370 mg/dL (70-110)
[2022-10-25] MEDS: morphine 4 mg/mL SDV 1 mL 2 MG IVP (19:36)
[2022-10-25] MEDS: atorvastatin 40 mg Tablet 20 MG PO (20:35)
[2022-10-25 21:22] LABS: Glucose Point of Care 407 mg/dL (70-110)
[2022-10-25] MEDS: insulin glargine 100 units/1 mL 30 UNIT SUBCUT (21:25)
[2022-10-26] VITALS (15 sets, daily range): BP systolic 98–178; BP diastolic 50–81; PULSE 65–72; RESP 16–27; TEMP 36.7–37.1; O2SAT 95–99
[2022-10-26] MEDS: dilTIAZem 30 mg Tablet PO ×5 (00:04→23:37)
[2022-10-26] MEDS: ipratropium-albuterol 3 mL Neb INHALATION ×4 (02:12→20:29)
[2022-10-26 04:54] LABS: Basophils % 0.4 %; Eosinophils # 0.1 10^3/uL (0.0-0.8); Eosinophils % 1.1 %; Hematocrit 24.6 % (37.0-47.0); Hemoglobin 7.5 g/dL (11.5-15.3); Lymphocytes # 0.8 10^3/uL (0.8-4.8); Lymphocytes % 7.9 %; Mean Corpuscular HGB Conc 30.5 g/dL (30.0-36.0); Mean Corpuscular Hemoglobin 30.1 pg (28.0-34.0); Mean Corpuscular Volume 98.8 fl (81-99); Mean Platelet Volume 10.5 fL (7.4-10.4); Monocytes # 0.9 10^3/uL (0.2-0.9); Monocytes % 8.8 %; Neutrophils # 8.18 10^3/uL (1.8-7.7); Neutrophils % 80.3 %; Nucleated Red Blood Cells # 0.1 /100WBC; Nucleated Red Blood Cells % 0.8 %; Platelet Count 220 10^3/cmm (130-400); Red Blood Count 2.49 10^6/uL (4.1-5.3); Red Cell Distribution Width 14.4 % (12.1-15.1); White Blood Count 10.2 10^3/uL (4.0-10.0)
[2022-10-26] MEDS: gabapentin 100 mg Capsule PO ×2 (05:20→21:03)
[2022-10-26 05:33] LABS: Alanine Aminotransferase 14 U/L (0-33); Albumin Level 3.6 g/dL (3.5-5.2); Alkaline Phosphatase 60 U/L (35-105); Anion Gap 11.8 (5-19); Aspartate Amino Transferase 9 U/L (0-32); Blood Urea Nitrogen 32 mg/dL (8-23); Calcium 10.8 mg/dL (8.5-10.5); Carbon Dioxide 35 mmol/L (22-29); Chloride 89 mmol/L (98-107); Creatinine Clr Calc Pharmacy 67.2917; Globulin 2.7 g/dL (1.3-4.6); Glucose 205 mg/dL (65-115); Magnesium 1.9 mg/dL (1.7-2.3); Osmolality Calculated 287 mOsm/kg (285-295); Phosphorus 1.8 mg/dL (2.5-4.5); Potassium 3.8 mmol/L (3.5-5.1); Sodium 132 mmol/L (136-145); Total Bilirubin 0.4 mg/dL (0.15-1.2); Total Protein 6.3 g/dL (6.6-8.7)
[2022-10-26 07:24] LABS: Glucose Point of Care 205 mg/dL (70-110)
--- NOTE | 2022-10-26 07:40 | PM.PN ---
Subjective Subjective: she feels more short of breath today. uses oxygen at home Had CT this morning to evaluate bruise right upper quadrant abd perry has been removed this AM, no urine output since Vitals/I&O/Wt Last Vital Signs Temp 98.4 F 10/26/22 07:10 Pulse 68 10/26/22 07:10 Resp 21 H 10/26/22 07:10 BP 149/50 10/26/22 07:10 Pulse Ox 99 10/26/22 07:10 O2 Del Method Nasal Cannula 10/26/22 07:10 O2 Flow Rate 3 10/25/22 19:35 FiO2 30 10/26/22 04:00 10/25/22 10/26/22 10/26/22 22:59 06:59 14:59 Intake Total 840 / 1550 200 / 1750 Output Total 700 / 700 Balance 840 / 1550 -500 / 1050 Weight last 48 hrs Weight 114 kg Weight 111.13 kg Physical Exam Const: COMMON NORMALS: alert Extremity: NARRATIVE EXTREMITY EXAM: trace edema Neuro: SENSORIUM/ORIENTATION: Yes alert Urinary Catheter Management: Perry: Cath Placed During This Visit: no Reason for Continuing Indwelling Catheter: Other Data 10/26/22 03:05 10/26/22 03:05 CT Abd/Pel: Radiologist's impression: Kidneys and ureters: There is mild atrophy of both kidneys. There is a nonobstructive stone in the right kidney. There is no hydronephrosis or ureteral dilation. The left kidney and ureter are unremarkable. Other data: seen and examined via telemedicine with assistance of RN at bedside A&P Assessment and plan (1) MATTIE (acute kidney injury): Plan 1. Acute kidney injury: diuresing, creatinine improving. Renal function is close to baseline. 2. Hyponatremia, improved 3. Iron deficiency anemia, Hb Stable, receiving IV iron 4. Diabetes, hyperglycemia, receiving insulin Recommend: will sign off - please call again if needed Attestations Medical Necessity Statement*: per primary service Time Spent in Patient Care: 16 - 35 minutes Coding Level of Care Code Acute Code for [facility] Fwd Diagnoses MATTIE (acute kidney injury) N17.9
[2022-10-26] MEDS: insulin lispro 100 unit/1 mL SUBCUT ×4 (08:16→22:29)
[2022-10-26] MEDS: metOLazone 5 MG Tablet PO (08:20)
[2022-10-26] MEDS: amiodarone 200 mg Tablet 400 MG PO ×2 (08:20→17:57)
[2022-10-26] MEDS: aspirin 81 mg Chew Tablet PO (08:21)
[2022-10-26] MEDS: hyDRALAzine 25 mg Tablet PO ×3 (08:21→21:03)
[2022-10-26] MEDS: pantoprazole DR 40 mg Tablet PO (08:21)
--- NOTE | 2022-10-26 09:21 | P.PN_ITS ---
Subjective Subjective: Carina states she is doing okay this morning. She thinks she is getting a CAT scan. Her creatinine continues to come down. It is 1.2 this morning. Physically she is about the same as she was yesterday. Vitals/I&O/Wt Last Vital Signs Temp 98.4 F 10/26/22 07:10 Pulse 71 10/26/22 08:00 Resp 17 10/26/22 08:00 BP 149/50 10/26/22 07:10 Pulse Ox 96 10/26/22 08:00 O2 Del Method Nasal Cannula 10/26/22 08:00 O2 Flow Rate 3 10/26/22 08:00 FiO2 30 10/26/22 04:00 10/25/22 10/26/22 10/26/22 22:59 06:59 14:59 Intake Total 840 / 1550 200 / 1750 360 / 360 Output Total 700 / 700 Balance 840 / 1550 -500 / 1050 360 / 360 Weight last 48 hrs Weight 251 lb 5.231 oz Weight 245 lb Physical Exam Narrative: GENERAL: In general she is awake and alert and in no distress. HEENT: Exam within normal limits. NECK: Supple without jugular vein distention. The carotid upstroke is normal without bruits. BACK: Exam normal. LUNGS: Clear. HEART: Regular rate and rhythm. ABDOMEN: Benign without organomegaly or tenderness. EXTREMITIES: No edema. NEUROLOGIC: Exam normal. SKIN: Unremarkable. Urinary Catheter Management: Bocanegra: Cath Placed During This Visit: no Reason for Continuing Indwelling Catheter: Other Data 10/26/22 03:05 10/26/22 03:05 A&P Assessment and plan (1) Sleep apnea: (2) Pulmonary HTN: (3) Mitral stenosis: (4) NSTEMI (non-ST elevated myocardial infarction): (5) Atrial fibrillation: (6) Myocardial injury: (7) Pleural effusion: (8) Mitral stenosis: (9) MATTIE (acute kidney injury): (10) HTN (hypertension): (11) Acute diastolic CHF (congestive heart failure): (12) Pulmonary edema: Qualifiers: Chronicity: acute Qualified Code(s): J81.0 - Acute pulmonary edema (13) Type 2 diabetes mellitus: Qualifiers: Diabetes mellitus complication status: with hyperglycemia Diabetes mellitus intermediate insulin use: with exterminator termite use Qualified Code(s): E11.65 - Type 2 diabetes mellitus with hyperglycemia; Z79.4 - snf (current) use of insulin (14) Myelodysplasia (myelodysplastic syndrome): (15) Valvular heart disease: (16) Carotid artery disease: Qualifiers: Carotid artery disease type: stenosis Laterality: bilateral Qualified Code(s): I65.23 - Occlusion and stenosis of bilateral carotid arteries (17) Dyslipidemia (high LDL; low HDL): (18) Acute on chronic diastolic (congestive) heart failure: (19) PAD (peripheral artery disease): Plan Continued medical management. No changes today. Attestations Medical Necessity Statement*: Continued hospital stay for management of multiple medical problems including congestive heart failure. and Moderate Time for a total of 25 minutes, includes reviewing past or interval history, examining/interviewing patient, counseling patient/family/other support, communicating with other healthcare providers, documenting encounter and coordinating care Diagnoses Sleep apnea G47.30 Pulmonary HTN I27.20 Mitral stenosis I05.0 NSTEMI (non-ST elevated myocardial infarction) I21.4 Atrial fibrillation I48.91 Myocardial injury I5A Pleural effusion J90 MATTIE (acute kidney injury) N17.9 HTN (hypertension) I10 Acute diastolic CHF (congestive heart failure) I50.31 Pulmonary edema J81.0 Chronicity: acute Type 2 diabetes mellitus E11.65; Z79.4 Diabetes mellitus complication status: with hyperglycemia Diabetes mellitus exterminator termite insulin use: with intermediate use Myelodysplasia (myelodysplastic syndrome) D46.9 Valvular heart disease I38 Carotid artery disease I65.23 Carotid artery disease type: stenosis Laterality: bilateral Dyslipidemia (high LDL; low HDL) E78.5 Acute on chronic diastolic (congestive) heart failure I50.33 PAD (peripheral artery disease) I73.9
[2022-10-26] MEDS: lipase-protease-amylase Capsule 2 EACH PO ×3 (09:32→17:57)
[2022-10-26] MEDS: dorzolamide 2% Op Soln 10 mL Btl 1 DROP EYE-BOTH ×2 (09:33→21:03)
[2022-10-26] MEDS: cholecalciferol (vitamin D3) 1,000 unit Tablet 1000 UNIT PO (09:33)
[2022-10-26] MEDS: clotrimazole 1% cream 30 gm 1 APPLIC TOPICAL ×2 (09:35→17:58)
[2022-10-26] MEDS: ferric gluconate 125 MG in sodium chloride 0.9% (100 ml) 100 ML 110 MG IV (09:35)
--- NOTE | 2022-10-26 09:36 | CTR_ITS ---
PROCEDURE INFORMATION: Exam: CT Abdomen And Pelvis Without Contrast Exam date and time: 10/26/2022 10:24 AM Age: 82 years old Clinical indication: Other: Evalute for intra abdominal bleeding TECHNIQUE: Imaging protocol: Computed tomography of the abdomen and pelvis without contrast. Radiation optimization: All CT scans at this facility use at least one of these dose optimization techniques: automated exposure control; mA and/or kV adjustment per patient size (includes targeted exams where dose is matched to clinical indication); or iterative reconstruction. REPORTING DATA: Count of CT and Cardiac NM exams in prior 12 months: This patient has received 2 known CTs and 0 known cardiac nuclear medicine studies in the 12 months prior to the current study. COMPARISON: CT abdomen pelvis w con* [id number] 10/16/2022 1:02 PM RADIATION DOSE METRICS: Total DLP (mGy-cm): 1182.8 FINDINGS: Lungs: There are multiple noncalcified pulmonary nodules amid ground-glass opacity in the lower lungs bilaterally. The largest is in the left lower lobe and measures 12 mm on series 4, image 6. There is partial dependent atelectasis of both lower lobes, progressive since 10/16/2022. Pleural spaces: Small simple bilateral pleural effusions. Heart: Marked mitral annular calcification. Coronary arteries: There is moderate coronary artery calcification. Liver: The liver is normal. Gallbladder and bile ducts: The gallbladder is absent. There is no intrahepatic or extrahepatic bile duct dilation. Pancreas: There are scattered calcifications in the pancreatic parenchyma consistent with chronic pancreatitis. There is moderate atrophy of the pancreas. Spleen: The spleen is unremarkable. Adrenal glands: The adrenal glands are unremarkable. Kidneys and ureters: There is mild atrophy of both kidneys. There is a nonobstructive stone in the right kidney. There is no hydronephrosis or ureteral dilation. The left kidney and ureter are unremarkable. Stomach and bowel: The stomach is unremarkable. There is a non-inflamed diverticulum in the proximal duodenum. There is a 2.4 cm intramural lipoma in left lower quadrant small bowel. The small bowel is nondilated. There is pancolonic diverticulosis. There is no sign of diverticulitis. Appendix: The appendix is normal. Intraperitoneal space: There is no free air or significant intraperitoneal free fluid. Vasculature: There is moderate aortic atherosclerotic disease. Lymph nodes: There is no lymphadenopathy in the retroperitoneum, mesentery, pelvis or inguinal regions. Urinary bladder: Trace gas in the bladder lumen. Bladder is decompressed limiting assessment of wall thickness. Reproductive: The uterus is absent. There is no adnexal mass or large cyst. Bones/joints: There is mild degenerative disease in the lumbar spine. The pelvis and hips are unremarkable. Soft tissues: The abdominal wall is intact. There are multifocal subcutaneous high attenuation nodules and edema in the anterior lower abdominal wall consistent with hematomas at injection sites. No hernia. CT/CT abdomen pelvis wo con [id number] IMPRESSION: 1. No sign of significant intra-abdominal bleeding. 2. Multiple injection site hematomas in the subcutaneous fat of the anterior lower abdominal wall. Possible coagulopathy. 3. Bilateral lower lung nodules and ground-glass opacities are new since 10/16/2022. Possible pulmonary hemorrhage, pulmonary edema, acute hypersensitivity pneumonitis or infection. For patients at low risk of lung cancer (minimal or absent history of smoking and of other known risk factors), recommend CT Chest at 3-6 months, then consider CT Chest at 18-24 months. For patients at high risk (history of smoking or of other known risk factors), recommend CT Chest at 3-6 months, then CT Chest at 18-24 months. (Reference: [facility]) 4. Progressive atelectasis in both lower lobes since 10/16/2022. 5. Gas in the urinary bladder. Recent instrumentation versus cystitis. 6. Incidental findings above. REFERENCES: [facility] Greene et al. Guidelines for Management of Incidental Pulmonary Nodules Detected on CT Images: From the Fleischner Society 2017. Radiology. 2017;284(1):228-243.
[2022-10-26 12:01] LABS: Glucose Point of Care 307 mg/dL (70-110)
--- NOTE | 2022-10-26 14:00 | PM.PN ---
Subjective Subjective: patient noted new hematoma forming over her right chest upper abdominal wall which is tender. On 2lpm supplemental 02. More SOB today, will administer 40mg iv lasix in addition to scheduled 80 mg po dose. Medications: Reviewed: Yes Medication Review Details: IV furosemide, oral metolazone 5 mg daily Vitals/I&O/Wt Last Vital Signs Temp 98.0 F 10/27/22 12:30 Pulse 74 10/27/22 12:30 Resp 17 10/27/22 12:30 BP 141/78 10/27/22 12:30 Pulse Ox 94 10/27/22 12:30 O2 Del Method Nasal Cannula 10/27/22 11:10 O2 Flow Rate 3 10/26/22 08:00 FiO2 2 10/27/22 08:00 10/26/22 10/27/22 10/27/22 22:59 06:59 14:59 Intake Total 350 / 950 300 / 1250 590 / 590 Output Total 1325 / 1725 400 / 2125 200 / 200 Balance -975 / -775 -100 / -875 390 / 390 Weight last 48 hrs Weight 114.577 kg Weight 114 kg Physical Exam Narrative: General: No acute distress, AO x3 HEENT: PERRLA, pupils bilaterally equal and reactive, pallors not present Chest: Normal vesicular breath sounds, no added sounds, equal good air entry bilaterally CVS: S1-S2 regular, no murmurs, no tachycardia, no gallops, no rubs Abdomen: Soft, nontender, no organomegaly, bowel sounds present Neuro: No focal deficits, no facial deformity, AO x3, power 5/5 in all limbs Urinary Catheter Management: Bocanegra: Cath Placed During This Visit: yes, but has since been removed by the nurse Reason for Continuing Indwelling Catheter: Other Date Urinary Catheter Removed: 10/26/22 Time Urinary Catheter Discontinued: 08:30 Data 10/27/22 03:35 10/27/22 03:35 A&P Assessment and plan (1) Sleep apnea: (2) Pulmonary HTN: (3) Mitral stenosis: (4) NSTEMI (non-ST elevated myocardial infarction): (5) Atrial fibrillation: (6) Pleural effusion: (7) MATTIE (acute kidney injury): (8) HTN (hypertension): (9) Acute diastolic CHF (congestive heart failure): (10) Myelodysplasia (myelodysplastic syndrome): (11) Type 2 diabetes mellitus: Qualifiers: Diabetes mellitus complication status: with hyperglycemia 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: with intermodal owner operator truck driver use Qualified Code(s): E11.65 - Type 2 diabetes mellitus with hyperglycemia; Z79.4 - skilled nursing (current) use of insulin (12) Pulmonary edema: Qualifiers: Chronicity: acute Qualified Code(s): J81.0 - Acute pulmonary edema (13) Carotid artery disease: Qualifiers: Carotid artery disease type: stenosis Laterality: bilateral Qualified Code(s): I65.23 - Occlusion and stenosis of bilateral carotid arteries (14) PAD (peripheral artery disease): (15) Dyslipidemia (high LDL; low HDL): Booker Winkler is a 82 year old female with PMH of COPD on 2 Ls oxygen at home, DM, PVD, HFpEF,?atrial fibrillation, was brought in on October 16, 2022 with chief complaint of acute onset of left lower quadrant abdominal pain, associated with some nausea no vomiting, she was also complaining of worsening shortness of breath, orthopnea going on for the last few days, she denied any fever chills cough, chest pain, vomiting. CT of the abdomen and pelvis was overall unremarkable. Currently his active issues are MATTIE from which she is currently recovering, decompensated heart failure and recent NSTEMI. # NSTEMI: EKG atrial fibrillation. Troponin trend: 108-147 --> 162 2D echo: Normal LV size and systolic function with EF of 64%, no RWMA Currently on ACS protocol with ASA 81mg po daily, atorvastatin A/c discontinued due to hb drop to 7.7 Continue telemetry monitoring Cardiology consult appreciated unable to undego cardiac cath due to MATTIE , will be followed up closely as outpatient. # Decompensated heart failure with preserved ejection fraction: Patient has bilateral pleural effusion, worsening shortness of breath, orthopnea Currently on Lasix 40 mg IV every day and metolazone 5 mg p.o. daily. Renal function is currently improving # Possible underlying pneumonia: The clinical suspicion is low. X-ray chest: patchy opacity involving the right lung base up to the hilar level with similar right perihilar change. The opacity is greatest in the lower base which is probably due to pleural effusion There is retrocardiac medial left basal opacity in addition to blunting of the costophrenic angle indicating small effusion. CT angio chest : ?Negative for pulmonary embolus.Moderate bilateral pleural effusions.Patchy bilateral dependent airspace infiltrates.?Enlarged right hilar 2.8 cm lymph node with scattered prominent additional subcentimeter lymph nodes throughout the mediastinum, nonspecific. Completed a 6-day presumptive course with piperacillin/tazobactam. Antibiotics discontinued, no signs of infection. # MATTIE on CKD: Possibly multifactorial secondary to aggressive diuresis, contrast studies Creatinine now improving at 1.5 Appreciate nephrology recommendations Diuresis has been resumed. DC Bocanegra catheter today as MATTIE improving. # Severe pulmonary hypertension: Pulmonary artery peak systolic pressure 73 mmHg. Pulmonary follow-up as outpatient Diuresis has been resumed # History of diabetes: Continue sliding scale insulin, monitor fingerstick glucose Blood sugar currently uncontrolled. Greater than 350 on multiple occasions. Start high-dose insulin sliding scale, currently on a medium scale # History of atrial fibrillation: Patient is intermittently going into A-fib with RVR Currently rate controlled on amiodarone 400 mg p.o. twice daily and cardizem 30 mg p.o. every 6H Anticoagulation discontinued today as hemoglobin noted to be drifting down to 7.7. # Anemia: Baseline hemoglobin upon admission was at 10. Slowly drifting down during the course of admission from 8.7 then 8.2 and now 7.7. stable over last 48 hrs We will discontinue anticoagulation. Check fecal occult blood. Patient was receiving p.o. ferrous sulfate 3 times a day, now also started on IV iron supplementation by nephrology, will discontinue oral supplementation while IV is going. History of hypertension: Continue clonidine and hydralazine Mild mitral stenosis: Mitral valve mean gradient is 12.8,?mmHg.? The mitral valve area by pressure half-time is 2.14 cm squared.? Peak velocity across the mitral valve was 2.95 m/s. Cardiology on board Patient concerned about developing swelling bilaterally around her neck. On examination appears to be symmetric fat, however stating that the right side is painful today. Review of records shows that patient has a known hypoechoic solid nodule in the right mid thyroid lobe, I suspect patient is referring to the same swelling. Right upper extremity DVT was ruled out on her Doppler. CODE STATUS:AND DVT prophylaxis : On hold due to anemia PUD prophylaxis: Protonix PLan for today 10/27: c/o new hematoma oer right upper quadrant today . Multiple other small hematomas at site of prior lovenox injections. Given falling HB this admission and also new hematomas seen externally, will obtain CT abdomen to evalute any intra abdominal bleeding. More SOB this afternoon, additional iv lasix today Attestations Medical Necessity Statement*: iv diuresis today, Ct abdomen Coding Level of Care Code Acute Code for Chg Fwd Diagnoses Sleep apnea G47.30 Pulmonary HTN I27.20 Mitral stenosis I05.0 NSTEMI (non-ST elevated myocardial infarction) I21.4 Atrial fibrillation I48.91 Pleural effusion J90 MATTIE (acute kidney injury) N17.9 HTN (hypertension) I10 Acute diastolic CHF (congestive heart failure) I50.31 Myelodysplasia (myelodysplastic syndrome) D46.9 Type 2 diabetes mellitus E11.65; Z79.4 Diabetes mellitus complication status: with hyperglycemia 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
[2022-10-26] MEDS: FUROsemide 10 mg/mL SDV 4mL 40 MG IVP (15:49)
[2022-10-26 16:45] LABS: Glucose Point of Care 343 mg/dL (70-110)
[2022-10-26] MEDS: atorvastatin 40 mg Tablet 20 MG PO (21:03)
[2022-10-26 21:37] LABS: Glucose Point of Care 291 mg/dL (70-110)
[2022-10-26] MEDS: insulin glargine 100 units/1 mL 30 UNIT SUBCUT (22:29)
[2022-10-27] VITALS (10 sets, daily range): BP systolic 121–157; BP diastolic 31–78; PULSE 64–74; RESP 16–22; TEMP 36.7–37.2; O2SAT 94–98
[2022-10-27] MEDS: ipratropium-albuterol 3 mL Neb INHALATION ×2 (01:59→08:29)
[2022-10-27 04:03] LABS: Basophils % 0.3 %; Eosinophils # 0.1 10^3/uL (0.0-0.8); Eosinophils % 0.6 %; Hematocrit 25.2 % (37.0-47.0); Hemoglobin 7.7 g/dL (11.5-15.3); Mean Corpuscular HGB Conc 30.6 g/dL (30.0-36.0); Mean Corpuscular Hemoglobin 30.2 pg (28.0-34.0); Mean Corpuscular Volume 98.8 fl (81-99); Mean Platelet Volume 9.9 fL (7.4-10.4); Monocytes # 0.8 10^3/uL (0.2-0.9); Monocytes % 7.9 %; Neutrophils # 8.25 10^3/uL (1.8-7.7); Neutrophils % 79.5 %; Nucleated Red Blood Cells # 0.2 /100WBC; Nucleated Red Blood Cells % 1.6 %; Platelet Count 240 10^3/cmm (130-400); Red Blood Count 2.55 10^6/uL (4.1-5.3); Red Cell Distribution Width 14.8 % (12.1-15.1); White Blood Count 10.4 10^3/uL (4.0-10.0)
[2022-10-27 04:29] LABS: Alanine Aminotransferase 11 U/L (0-33); Albumin Level 3.5 g/dL (3.5-5.2); Alkaline Phosphatase 60 U/L (35-105); Anion Gap 13.1 (5-19); Aspartate Amino Transferase 10 U/L (0-32); Blood Urea Nitrogen 31 mg/dL (8-23); Carbon Dioxide 33 mmol/L (22-29); Chloride 90 mmol/L (98-107); Globulin 2.8 g/dL (1.3-4.6); Glucose 186 mg/dL (65-115); Magnesium 1.7 mg/dL (1.7-2.3); Osmolality Calculated 285 mOsm/kg (285-295); Phosphorus 1.5 mg/dL (2.5-4.5); Potassium 4.1 mmol/L (3.5-5.1); Sodium 132 mmol/L (136-145); Total Bilirubin 0.5 mg/dL (0.15-1.2); Total Protein 6.3 g/dL (6.6-8.7)
[2022-10-27] MEDS: dilTIAZem 30 mg Tablet PO ×2 (06:00→12:05)
[2022-10-27] MEDS: gabapentin 100 mg Capsule PO (06:00)
[2022-10-27 06:49] LABS: Glucose Point of Care 220 mg/dL (70-110)
[2022-10-27] MEDS: insulin lispro 100 unit/1 mL SUBCUT ×2 (08:14→11:57)
[2022-10-27] MEDS: aspirin 81 mg Chew Tablet PO (08:16)
[2022-10-27] MEDS: pantoprazole DR 40 mg Tablet PO (08:16)
[2022-10-27] MEDS: cholecalciferol (vitamin D3) 1,000 unit Tablet 1000 UNIT PO (08:16)
[2022-10-27] MEDS: FUROsemide 40 mg Tablet 80 MG PO (08:16)
[2022-10-27] MEDS: hyDRALAzine 25 mg Tablet PO (08:16)
[2022-10-27] MEDS: metOLazone 5 MG Tablet PO (08:16)
[2022-10-27] MEDS: amiodarone 200 mg Tablet 400 MG PO (08:16)
[2022-10-27] MEDS: clotrimazole 1% cream 30 gm 1 APPLIC TOPICAL (08:17)
[2022-10-27] MEDS: lipase-protease-amylase Capsule 2 EACH PO ×2 (08:20→12:05)
[2022-10-27] MEDS: dorzolamide 2% Op Soln 10 mL Btl 1 DROP EYE-BOTH (08:20)
--- NOTE | 2022-10-27 09:31 | P.PN_ITS ---
Subjective Subjective: Dorsal sitting up in a chair and feels better today. Less short of breath. Creatinine down to 1.1. Urine output 1925 mL. She is on Lasix by mouth. Remains anemic. She wants to go home. Vitals/I&O/Wt Last Vital Signs Temp 98.0 F 10/27/22 08:00 Pulse 71 10/27/22 08:00 Resp 22 H 10/27/22 08:00 BP 149/60 10/27/22 08:00 Pulse Ox 95 10/27/22 08:00 O2 Del Method Nasal Cannula 10/27/22 08:00 O2 Flow Rate 3 10/26/22 08:00 FiO2 2 10/27/22 08:00 10/26/22 10/27/22 10/27/22 22:59 06:59 14:59 Intake Total 350 / 950 300 / 1250 240 / 240 Output Total 1325 / 1725 400 / 2125 200 / 200 Balance -975 / -775 -100 / -875 40 / 40 Weight last 48 hrs Weight 252 lb 9.6 oz Weight 251 lb 5.231 oz Physical Exam Narrative: GENERAL: In general she is awake alert and much more comfortable HEENT: Exam within normal limits. NECK: Supple without jugular vein distention. The carotid upstroke is normal without bruits. BACK: Exam normal. LUNGS: Clear. HEART: Regular rate and rhythm. ABDOMEN: Benign without organomegaly or tenderness. EXTREMITIES: No edema. NEUROLOGIC: Exam normal. SKIN: Unremarkable. Urinary Catheter Management: Bocanegra: Cath Placed During This Visit: yes, but has since been removed by the nurse Reason for Continuing Indwelling Catheter: Other Date Urinary Catheter Removed: 10/26/22 Time Urinary Catheter Discontinued: 08:30 Data 10/27/22 03:35 10/27/22 03:35 A&P Assessment and plan (1) Sleep apnea: (2) Pulmonary HTN: (3) Mitral stenosis: (4) NSTEMI (non-ST elevated myocardial infarction): (5) Atrial fibrillation: (6) Pleural effusion: (7) Mitral stenosis: (8) MATTIE (acute kidney injury): (9) HTN (hypertension): (10) Acute diastolic CHF (congestive heart failure): (11) Myelodysplasia (myelodysplastic syndrome): (12) Type 2 diabetes mellitus: Qualifiers: Diabetes mellitus complication status: with hyperglycemia Diabetes mellitus senior care insulin use: with long term care social worker use Qualified Code(s): E11.65 - Type 2 diabetes mellitus with hyperglycemia; 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 No changes made today. Attestations Medical Necessity Statement*: Hospital stay for management of multiple medical problems including heart failure, diabetes, acute renal insufficiency. and Moderate Time for a total of 25 minutes, includes reviewing past or interval history, examining/interviewing patient, counseling patient/family/other support and documenting encounter Diagnoses Sleep apnea G47.30 Pulmonary HTN I27.20 Mitral stenosis I05.0 NSTEMI (non-ST elevated myocardial infarction) I21.4 Atrial fibrillation I48.91 Pleural effusion J90 MATTIE (acute kidney injury) N17.9 HTN (hypertension) I10 Acute diastolic CHF (congestive heart failure) I50.31 Myelodysplasia (myelodysplastic syndrome) D46.9 Type 2 diabetes mellitus E11.65; Z79.4 Diabetes mellitus complication status: with hyperglycemia Diabetes mellitus 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
[2022-10-27] MEDS: ferric gluconate 125 MG in sodium chloride 0.9% (100 ml) 100 ML 110 MG IV (10:08)
--- NOTE | 2022-10-27 11:29 | P.DS_ITS ---
Discharge Providers Date of Admission: 10/16/22 17:18 Date of Discharge: October 27, 2022 Attending Provider at Admission: Jhonatan Londono MD Attending Provider at Discharge: Agnes Hackett MD Consults: cardiology, nephrology Primary Care Provider: Deep Angeles DO Diagnoses at Discharge Discharge Diagnosis (1) Sleep apnea: Status: Acute (2) Pulmonary HTN: Status: Acute (3) Mitral stenosis: Status: Acute (4) NSTEMI (non-ST elevated myocardial infarction): Status: Acute (5) Atrial fibrillation: Status: Acute (6) Pleural effusion: Status: Acute (7) MATTIE (acute kidney injury): Status: Acute (8) HTN (hypertension): Status: Acute (9) Acute diastolic CHF (congestive heart failure): Status: Acute (10) Myelodysplasia (myelodysplastic syndrome): Status: Acute (11) Type 2 diabetes mellitus: Status: Acute Qualifiers: Diabetes mellitus complication status: with hyperglycemia Diabetes mellitus remote computer terminal operator insulin use: with [facility] use Qualified Code(s): E11.65 - Type 2 diabetes mellitus with hyperglycemia; Z79.4 - long-term (current) use of insulin (12) Pulmonary edema: Status: Acute Qualifiers: Chronicity: acute Qualified Code(s): J81.0 - Acute pulmonary edema (13) Carotid artery disease: Status: Acute Qualifiers: Carotid artery disease type: stenosis Laterality: bilateral Qualified Code(s): I65.23 - Occlusion and stenosis of bilateral carotid arteries (14) PAD (peripheral artery disease): Status: Acute (15) Dyslipidemia (high LDL; low HDL): Status: Acute Reason for Visit Reason for Visit: SOB/ NAUSEA Hospital Course Hospital Course Plan Beth Winkler is a 82 year old female with PMH of COPD on 2 Ls oxygen at home, DM, PVD, HFpEF,?atrial fibrillation, was brought in on October 16, 2022 with chief complaint of acute onset of left lower quadrant abdominal pain, associated with some nausea no vomiting, she was also complaining of worsening shortness of breath, orthopnea going on for the last few days, she denied any fever chills cough, chest pain, vomiting.? CT of the abdomen and pelvis was overall unremarkable.? In the hospital she was managed for NSTEMI, Heart failure, MATTIE from which she is currently recovering and anemia.? # NSTEMI: EKG atrial fibrillation. Troponin trend: 108-147 --> 162 2D echo: Normal LV size and systolic function with EF of 64%, no RWMA Currently discharged on ASA 81mg po daily, atorvastatin Cilostazol discontinued due to heart failure A/c discontinued due to hb drop to 7.7 Cardiology consult during admission unable to undego cardiac cath due to MATTIE , will be followed up closely as outpatient. # Decompensated heart failure with preserved ejection fraction: Patient had bilateral pleural effusion, worsening shortness of breath, orthopnea discharged on Lasix 60 mg po every day and metolazone 5 mg p.o. daily. Renal function is currently improving # Possible underlying pneumonia: The clinical suspicion is low. X-ray chest:?patchy opacity involving the right lung base up to the hilar level with similar right perihilar change. The opacity is greatest in the lower base which is probably due to pleural effusion There is retrocardiac medial left basal opacity in addition to blunting of the costophrenic angle indicating small effusion. CT angio chest?:??Negative for pulmonary embolus.Moderate bilateral pleural effusions.Patchy bilateral dependent airspace infiltrates.?Enlarged right hilar 2.8 cm lymph node with scattered prominent additional subcentimeter lymph nodes throughout the mediastinum, nonspecific. Completed a 6-day presumptive course with piperacillin/tazobactam.? Antibiotics discontinued, no signs of infection persisting. # MATTIE on CKD: Possibly multifactorial secondary to aggressive diuresis, contrast studies Creatinine now improving at 1.1 Appreciate nephrology recommendations Diuresis has been resumed. # Severe pulmonary hypertension: Pulmonary artery peak systolic pressure 73 mmHg. Pulmonary follow-up as outpatient Diuresis has been resumed # History of diabetes: Managed with insulin sliding scale. # History of atrial fibrillation: rapid A fib with RVR upon admission, managed with amiodarone infusion initially + cardizem po Now discharged on amiodarone 400 mg p.o. twice daily and cardizem 120mg daily Anticoagulation not continued due to drop in Hb during admission May need to be readressed as outpatient # Anemia: Baseline hemoglobin upon admission was at 10.? Slowly drifting down during the course of admission from 8.7 then 8.2 and now 7.7. stable over last 72 hrs a/c discontinued Received iv iron while in the hospital, resued po supplementation at discharge # History of hypertension: Continue clonidine and hydralazine # Mild mitral stenosis: Mitral valve mean gradient is 12.8,?mmHg.? The mitral valve area by pressure half-time is 2.14 cm squared.? Peak velocity across the mitral valve was 2.95 m/s. 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 with women's soccer coach, patient established with endo in [facility] Discharged today in improved condition Physical Exam Narrative: General: No acute distress, AO x3 HEENT: PERRLA, pupils bilaterally equal and reactive, pallors not present Chest: Normal vesicular breath sounds, no added sounds, equal good air entry bilaterally CVS: S1-S2 regular, no murmurs, no tachycardia, no gallops, no rubs Abdomen: Soft, nontender, no organomegaly, bowel sounds present Neuro: No focal deficits, no facial deformity, AO x3, power 5/5 in all limbs Urinary Catheter Management: Bocanegra: Cath Placed During This Visit: yes, but has since been removed by the nurse Reason for Continuing Indwelling Catheter: Other Date Urinary Catheter Removed: 10/26/22 Time Urinary Catheter Discontinued: 08:30 Discharge Data Studies Completed and Pending Completed Studies During Hospitalization Category Date Time Status CT abdomen pelvis w con* [id number] Stat Cat Scan 10/16/22 11:[address] abdomen pelvis wo con [id number] Routine Cat Scan 10/26/22 09:[address] angio chest PE protcl [id number] Routine Cat Scan 10/18/22 17:59 Completed XR chest 1V portable [id number] Stat Exams 10/16/22 11:25 [place] [id number] Routine Ultrasound 10/24/22 17:01 Completed CV. echo complete* [id number] Routine Ultrasound 10/16/22 17:27 Com[place] chest [id number] Routine Ultrasound 10/18/22 16:49 Completed US renal BI* [id number] Routine Ultrasound 10/21/22 16:49 Completed Pending at discharge Category Date Time Status Fecal Occult Blood [Immunochemical Fecal OCB] Routine Lab 10/24/22 17:01 Uncollected Sputum Culture and Gram Stain Routine Lab 10/16/22 17:22 Uncollected Sputum Culture and Gram Stain Routine Lab 10/17/22 17:03 Uncollected Radiology Impressions Chest X-Ray 10/16/22 11:25 IMPRESSION: Possible bibasal atelectasis in addition to pneumonia especially favored on the right with indefinite irregular density in the right perihilum. Bilateral pleural effusions greater on the right Chest Ultrasound 10/18/22 16:49 IMPRESSION: No significant amount of pleural fluid for thoracentesis. Chest CTA 10/18/22 17:59 IMPRESSION: 1. Negative for pulmonary embolus. 2. Moderate bilateral pleural effusions. 3. Cardiomegaly. 4. Coronary artery atherosclerotic calcifications. 5. Cholecystectomy. 6. Benign pancreatic calcifications. 7. Patchy bilateral dependent airspace infiltrates. 8. Enlarged right hilar 2.8 cm lymph node with scattered prominent additional subcentimeter lymph nodes throughout the mediastinum, nonspecific. Renal Ultrasound 10/21/22 16:49 IMPRESSION: 1. No hydronephrosis or renal atrophy. Study is limited by body habitus. 2. Urinary bladder is not visualized. Patient does have a Bocanegra catheter present. Abdomen/Pelvis CT 10/26/22 09:36 IMPRESSION: 1. No sign of significant intra-abdominal bleeding. 2. Multiple injection site hematomas in the subcutaneous fat of the anterior lower abdominal wall. Possible coagulopathy. 3. Bilateral lower lung nodules and ground-glass opacities are new since 10/16/2022. Possible pulmonary hemorrhage, pulmonary edema, acute hypersensitivity pneumonitis or infection. For patients at low risk of lung cancer (minimal or absent history of smoking and of other known risk factors), recommend CT Chest at 3-6 months, then consider CT Chest at 18-24 months. For patients at high risk (history of smoking or of other known risk factors), recommend CT Chest at 3-6 months, then CT Chest at 18-24 months. (Reference: [place]) 4. Progressive atelectasis in both lower lobes since 10/16/2022. 5. Gas in the urinary bladder. Recent instrumentation versus cystitis. 6. Incidental findings above. REFERENCES: [place] Greene, et al. Guidelines for Management of Incidental Pulmonary Nodules Detected on CT Images: From the Fleischner Society 2017. Radiology. 2017;284(1):228-243. Laboratory Results WBC 10.4 10^3/uL (4.0-10.0) H 10/27/22 03:35 RBC 2.55 10^6/uL (4.1-5.3) L 10/27/22 03:35 Hgb 7.7 g/dL (11.5-15.3) L 10/27/22 03:35 Hct 25.2 % (37.0-47.0) L 10/27/22 03:35 MCV 98.8 fl (81-99) 10/27/22 03:35 MCH 30.2 pg (28.0-34.0) 10/27/22 03:35 MCHC 30.6 g/dL (30.0-36.0) 10/27/22 03:35 RDW 14.8 % (12.1-15.1) 10/27/22 03:35 Plt Count 240 10^3/cmm (130-400) 10/27/22 03:35 MPV 9.9 fL (7.4-10.4) 10/27/22 03:35 Neut % (Auto) 79.5 % 10/27/22 03:35 Lymph % (Auto) 10.0 % 10/27/22 03:35 [place] % (Auto) 7.9 % 10/27/22 03:35 Eos % (Auto) 0.6 % 10/27/22 03:35 Baso % (Auto) 0.3 % 10/27/22 03:35 Neut # (Auto) 8.25 10^3/uL (1.8-7.7) H 10/27/22 03:35 Lymph # (Auto) 1.0 10^3/uL (0.8-4.8) 10/27/22 03:35 [place] # (Auto) 0.8 10^3/uL (0.2-0.9) 10/27/22 03:35 Eos # (Auto) 0.1 10^3/uL (0.0-0.8) 10/27/22 03:35 Baso # (Auto) 0.0 10^3/uL (0.0-0.1) 10/27/22 03:35 Nucleated RBC % (auto) 1.6 % 10/27/22 03:35 Nucleated RBCs # 0.2 /100WBC 10/27/22 03:35 PT 13.80 SECONDS (12.1-14.9) 10/18/22 03:54 INR 1.02 (0.8-1.2) 10/18/22 03:54 APTT 105.9 SECONDS (23.9-36.7) H 10/24/22 11:37 D-Dimer <= 0.27 ug/mIFEU (0-0.59) 10/16/22 11:45 Sodium 132 mmol/L (136-145) L 10/27/22 03:35 Potassium 4.1 mmol/L (3.5-5.1) 10/27/22 03:35 Chloride 90 mmol/L (98-107) L 10/27/22 03:35 Carbon Dioxide 33 mmol/L (22-29) H 10/27/22 03:35 Anion Gap 13.1 (5-19) 10/27/22 03:35 BUN 31 mg/dL (8-23) H 10/27/22 03:35 Creatinine 1.1 mg/dL (0.5-0.9) H 10/27/22 03:35 GFR Calculation Not Reportable 10/27/22 03:35 Glucose 186 mg/dL (65-115) H 10/27/22 03:35 POC Glucose 220 mg/dL (70-110) H 10/27/22 06:38 Calculated Osmolality 285 mOsm/kg (285-295) 10/27/22 03:35 Lactic Acid 1.0 mmol/L (0.5-2.2) 10/17/22 06:47 Uric Acid 8.2 mg/dL (2.4-5.7) H 10/21/22 18:46 Calcium 11.0 mg/dL (8.5-10.5) H 10/27/22 03:35 Phosphorus 1.5 mg/dL (2.5-4.5) L 10/27/22 03:35 Magnesium 1.7 mg/dL (1.7-2.3) 10/27/22 03:35 Iron 40 ug/dL (37-145) 10/23/22 15:29 TIBC 277 mcg/dl 10/23/22 15:29 % Saturation 14.4 % (20-50) L 10/23/22 15:29 Unsat Iron Binding 237 ug/dL (112-347) 10/23/22 15:29 Ferritin 80 ng/mL (15-150) 10/23/22 15:29 Total Bilirubin 0.5 mg/dL (0.15-1.2) 10/27/22 03:35 AST 10 U/L (0-32) 10/27/22 03:35 ALT 11 U/L (0-33) 10/27/22 03:35 Alkaline Phosphatase 60 U/L (35-105) 10/27/22 03:35 Creatine Kinase 13 U/L (26-192) L 10/22/22 09:18 Troponin T Baseline 108 ng/L (0-10) H* 10/16/22 11:45 Troponin T 120 Minute 147.0 ng/L (0-10) H 10/16/22 13:39 Delta Troponin T 39.0 ABS# (0-10) H* 10/16/22 13:39 Troponin T Hi Sens 6Hr 162.9 ng/L (0-10) H 10/16/22 18:25 Troponin T Hi Sens 6Hr Delta 54.9 ng/L (0-12) H* 10/16/22 18:25 NT-Pro-B Natriuret Pep 1259 pg/mL (0-450) H 10/22/22 09:18 Total Protein 6.3 g/dL (6.6-8.7) L 10/27/22 03:35 Albumin 3.5 g/dL (3.5-5.2) 10/27/22 03:35 Globulin 2.8 g/dL (1.3-4.6) 10/27/22 03:35 Lipase 14 U/L (13-60) 10/16/22 11:45 25-OH Vitamin D Total 47 ng/mL (30-100) 10/22/22 09:18 Procalcitonin 0.03 ng/mL (0-0.5) 10/17/22 06:47 Urine Color Light yellow (Yellow) 10/16/22 19:20 Urine Appearance Clear (CLEAR) 10/16/22 19:20 Urine pH 6.5 (5-7) 10/16/22 19:20 Ur Specific [place] 1.010 (1.005-1.030) 10/16/22 19:20 Urine Protein Neg (Negative) 10/16/22 19:20 Urine Glucose (UA) Norm (Normal) 10/16/22 19:20 Urine Ketones Negative (Negative) 10/16/22 19:20 Urine Blood Neg (Negative) 10/16/22 19:20 Urine Nitrate Negative (Negative) 10/16/22 19:20 Urine Bilirubin Neg (Negative) 10/16/22 19:20 Urine Urobilinogen Norm mg/dL (Negative) 10/16/22 19:20 Ur Leukocyte Esterase Negative (Negative) 10/16/22 19:20 Ur Eosinophil Smear 0 (0-0) 10/21/22 21:33 Urine Eosinophils No eosinophils seen 10/21/22 21:33 U Random Total Protein 45 mg/dL 10/21/22 21:33 Ur Random Sodium 16 mmol/L 10/21/22 21:33 Ur Random Potassium 68 mmol/L 10/21/22 21:33 Ur Random Chloride 11 mmol/L 10/21/22 21:33 Urine Creatinine 102 mg/dL (28-217) 10/21/22 21:33 Vancomycin Trough 15.6 ug/mL (10-15) H 10/19/22 17:30 Random Vancomycin 15.8 ug/mL (20.0-40.0) L 10/22/22 09:18 Hepatitis C Antibody Non-reactive (Nonreactive) 10/21/22 18:46 Influenza Type A Ag negative (Negative) 10/16/22 15:10 Influenza Type B Ag negative (Negative) 10/16/22 15:10 SARS-CoV-2 Ag (Rapid) negative (Negative) 10/16/22 15:10 Vitals Last Vital Signs Temp 98.0 F 10/27/22 11:10 Pulse 74 10/27/22 11:10 Resp 17 10/27/22 11:10 BP 141/78 10/27/22 11:10 Pulse Ox 94 10/27/22 11:10 O2 Del Method Nasal Cannula 10/27/22 11:10 O2 Flow Rate 3 10/26/22 08:00 FiO2 2 10/27/22 08:00 Discharge Plan Discharge Patient Disposition: Home Condition: Stable Prescriptions: New Pacerone 200 mg Tablet 400 mg PO BID 30 Days Qty: 120 0RF Rx Instructions: take 400mg BID for 7 days, then reduce dose to 400mg daily metolazone 5 mg Tablet 5 mg PO DAILY 30 Days Qty: 30 0RF Transderm-Scop 1 mg over 3 days Patch 3 Day 1 patch transdermal Q3D 7 Days Qty: 3 0RF diltiazem HCl 120 mg capsule,extended release 24hr 120 mg PO DAILY Qty: 30 0RF Continued dorzolamide 2 % drops 1 drp ophthalmic (eye) BID ondansetron HCl 4 mg tablet 4 mg PO Q6H PRN (Reason: nausea and vomiting) hydralazine 25 mg tablet 25 mg PO TID Qty: 90 3RF furosemide 40 mg tablet 60 mg PO DAILY@0800 Qty: 90 1RF latanoprost 0.005 % drops 1 drp ophthalmic (eye) BEDTIME Rx Instructions: (BOTH EYES) atorvastatin 20 mg tablet 20 mg PO BEDTIME pantoprazole 40 mg tablet,delayed release (DR/EC) 40 mg PO DAILY mupirocin 2 % ointment 1 applic TOPICAL DAILY albuterol sulfate 90 mcg/actuation HFA aerosol inhaler 2 puff INHALATION Q6H PRN (Reason: Shortness Of Breath) fluticasone propionate 50 mcg/actuation spray,suspension 1 spray INTRANASAL DAILY insulin lispro [Humalog KwikPen Insulin] 100 unit/mL insulin pen See Rx Instructions .ROUTE .COMPLEX Rx Instructions: PER SLIDING SCALE Creon 24,000-76,000 -120,000 unit capsule,delayed release(DR/EC) 2 cap PO TID Anoro Ellipta 62.5-25 mcg/actuation blister with device 2 ea inhalation DAILY aspirin 81 mg Tablet,Chewable 81 mg PO DAILY gabapentin 100 mg capsule 100 mg PO TID clonidine HCl 0.1 mg tablet 0.2 mg PO BID Toujeo SoloStar U-300 Insulin 300 unit/mL (1.5 mL) insulin pen 130 unit SUBCUT DAILY ferrous sulfate [iron] 325 mg (65 mg iron) Tablet 325 mg PO TID cholecalciferol (vitamin D3) [Vitamin D3] 25 mcg (1,000 unit) Capsule 25 mcg PO DAILY Women's 50 Plus Multivitamin 400 mcg-500 mg calcium-20 mcg Tablet 1 tab PO DAILY biotin 5,000 mcg Tablet, Sublingual 5,000 mcg SUBLINGUAL BID clotrimazole 1 % cream 1 applic topical BID 28 Days Qty: 30 2RF albuterol sulfate 2.5 mg /3 mL (0.083 %) Solution For Nebulization 2.5 mg INHALATION QID PRN (Reason: Shortness Of Breath) ipratropium bromide 0.02 % Solution 2.5 ml INHALATION QID PRN (Reason: Shortness Of Breath) Humira(CF) Pen 40 mg/0.4 mL pen injector kit 40 mg SUBCUT Q7D Discontinued clindamycin HCl 300 mg capsule 300 mg PO TID cilostazol 100 mg tablet 100 mg PO BID Discharge Orders: Discharge Order (Routine); Ordered 10/27/22 Ordered By: Agnes Hackett Referrals: Deep Angeles, [Primary Care Provider] - 1 week (Please call for an follow-up appointment within 1 week. Please call ) Cinthya Gutierrez FNP [Nurse Practitioner] - 4-7 days ([facility] has been contacted with your discharge information. They will contact you to schedule an appointment in 4 to 7 days. If you haven't heard from them by Friday afternoon. Please call ) Discharge Diet: Usual diet Discharge Activity: Resume usual activity and As per PT/OT instructions Patient Instructions: Scopolamine (Absorbed through the skin) (Transderm Scop), Diltiazem (By mouth) (Cardizem, Cardizem CD, Cardizem LA, Cardizem SR), Metolazone (By mouth) (Zaroxolyn), Amiodarone (By mouth) (Cordarone, Pacerone), Heart Attack (DC), Heart Failure (DC), A-fib (Atrial Fibrillation) (DC), Pulmonary Arterial Hypertension (DC), Community Acquired Pneumonia (DC), CHF Stoplight, Opioid Safety, Post Heart Attack Stoplight, Pneumonia Stoplight Discharge Attestations Time Spent in Discharge Care*: greater than 30 min Status at Discharge: Cognitive status at discharge: cognitively intact , Behavioral status at discharge: cooperative , Quality Metrics Clinical Quality Measures [ No reported AMI, CVA or VTE this stay] Coding Level of Care Code Acute Code for Chg Fwd Diagnoses Sleep apnea G47.30 Pulmonary HTN I27.20 Mitral stenosis I05.0 NSTEMI (non-ST elevated myocardial infarction) I21.4 Atrial fibrillation I48.91 Pleural effusion J90 MATTIE (acute kidney injury) N17.9 HTN (hypertension) I10 Acute diastolic CHF (congestive heart failure) I50.31 Myelodysplasia (myelodysplastic syndrome) D46.9 Type 2 diabetes mellitus E11.65; Z79.4 Diabetes mellitus complication status: with hyperglycemia Diabetes mellitus remote computer terminal operator insulin use: with remote computer terminal operator use Pulmonary edema J81.0 Chronicity: acute Carotid artery disease I65.23 Carotid artery disease type: stenosis Laterality: bilateral PAD (peripheral artery disease) I73.9 Dyslipidemia (high LDL; low HDL) E78.5
[2022-10-27 11:39] LABS: Glucose Point of Care 331 mg/dL (70-110)
--- NOTE | 2022-10-27 13:40 | PC.NURSE ---
discharge instructions given and explained to pt and pt's son,including importance of daily weights.they verb understanding of instructions.discharged via w/c to exit.son to drive pt home
== END 2022-10-27 13:42 | disposition home or self-care (01) | DRG 280 ==
LOC: ER 16:40 → CSU 17:19
PROVIDERS: Internal Medicine Nephrology; Admitting Provider Internal Medicine; Emergency Provider Emergency Medicine; PCP Family Medicine; Visit Provider Student in an Organized Health Care Education/Training Program
DX: I13.0 Hypertensive heart and chronic kidney disease with heart failure and stage 1 through stage 4 chronic kidney disease, or unspecified chronic kidney disease (principal); I50.33 Acute on chronic diastolic (congestive) heart failure; I21.4 Non-ST elevation (NSTEMI) myocardial infarction; N17.9 Acute kidney failure, unspecified; N18.9 Chronic kidney disease, unspecified; E11.22 Type 2 diabetes mellitus with diabetic chronic kidney disease; E11.65 Type 2 diabetes mellitus with hyperglycemia; E11.51 Type 2 diabetes mellitus with diabetic peripheral angiopathy without gangrene; J44.9 Chronic obstructive pulmonary disease, unspecified; Z99.81 Dependence on supplemental oxygen; I48.91 Unspecified atrial fibrillation; D63.1 Anemia in chronic kidney disease; I27.20 Pulmonary hypertension, unspecified; I05.0 Rheumatic mitral stenosis; Z79.51 Long term (current) use of inhaled steroids; Z79.82 Long term (current) use of aspirin; Z79.4 Long term (current) use of insulin; Z88.2 Allergy status to sulfonamides; Z87.01 Personal history of pneumonia (recurrent); Z86.16 Personal history of COVID-19; G47.33 Obstructive sleep apnea (adult) (pediatric); D46.9 Myelodysplastic syndrome, unspecified; I95.9 Hypotension, unspecified; R10.32 Left lower quadrant pain; Z87.891 Personal history of nicotine dependence
CPT/HCPCS: 36415; 36416; 71045; 71275; 74176; 74177; 76604; 76770; 80048; 80053; 80202; 81003; 82306; 82436; 82550; 82570; 82728; 82962; 83540; 83550; 83605; 83690; 83735; 83880; 84100; 84133; 84145; 84156; 84300; 84484; 84550; 85025; 85378; 85610; 85730; 85999; 86403; 86803; 87040; 87426; 87449; 87641; 87804; 93005; 93306; 93971; 94640; 94660; 96372; 96374; 96376; 97110; 97161; 99285; J0282; J1644; J1650; J1815; J1940; J2060; J2270; J2543; J2916; J3370; J3480; J3490; J7030; J7060; Q3014; Q4081; Q9967

== ENCOUNTER → 2022-11-11 09:49 | Outpatient (BNVA) | payer MEDICARE, MEDICAID, SELFPAY | PROVIDERS: PCP Family Medicine; Visit Provider Nurse Practitioner Family | DX: I48.91 Unspecified atrial fibrillation (principal); I21.4 Non-ST elevation (NSTEMI) myocardial infarction; I11.0 Hypertensive heart disease with heart failure; I50.33 Acute on chronic diastolic (congestive) heart failure; E11.9 Type 2 diabetes mellitus without complications; J44.9 Chronic obstructive pulmonary disease, unspecified; Z87.891 Personal history of nicotine dependence; Z79.899 Other long term (current) drug therapy | CPT/HCPCS: 93005; 99214 ==

== ENCOUNTER 2022-11-18 23:01 | Inpatient (IN) | payer MEDICARE, MEDICAID, SELFPAY ==
[2022-11-18 23:04] VITALS: BMI 50.8
--- NOTE | 2022-11-18 23:09 | XRR_ITS ---
PROCEDURE INFORMATION: Exam: XR Chest Exam date and time: 11/18/2022 11:13 PM Age: 82 years old Clinical indication: Injury or trauma; Fall; Other: Weakness; Blunt trauma (contusions or hematomas) TECHNIQUE: Imaging protocol: Radiologic exam of the chest. Views: 1 view. COMPARISON: CR XR chest 1V portable [id number] 08/28/2022 4:01 AM FINDINGS: Lungs: Pulmonary venous congestion and bilateral infiltrates noted. Findings are suggestive of fluid overload/CHF. Pleural spaces: Small bilateral pleural effusions, right larger than left. Heart/Mediastinum: Cardiomegaly is present. Vasculature: The thoracic aorta is atherosclerotic. Bones/joints: Degenerative spine changes are noted. No acute abnormality noted. XR/XR chest 1V portable [id number] IMPRESSION: 1. Cardiomegaly is present. 2. Pulmonary venous congestion and bilateral infiltrates noted. Findings are suggestive of fluid overload/CHF. This is new when compared to XR chest dated 08/28/2022. 3. Small bilateral pleural effusions, right larger than left.
[2022-11-18 23:10] VITALS: BP 146/48; PULSE 47; RESP 18; TEMP 37.1; O2SAT 95
--- NOTE | 2022-11-18 23:10 | ECG_ITS ---
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 Measurements Intervals [place] Rate: 43 P: 0 SD: 0 QRS: 18 QRSD: 117 T: 9 QT: 473 QTc: 401 Interpretive Statements SUPRAVENTRICULAR BRADYCARDIA INDETERMINATE AXIS PATTERN CONSISTENT WITH PULMONARY DISEASE MODERATE INTRAVENTRICULAR CONDUCTION DELAY [110+ ms QRS DURATION] Compared to ECG 11/11/2022 09:55:28 Indeterminate axis now present Intraventricular conduction delay now present Poor R-wave progression no longer present Electronically Signed On 11-19-2022 16:55:58 CDT by Livan Edwards M.D. [id number]
--- NOTE | 2022-11-18 23:28 | W.ED.ABDPA2 ---
HPI - Abdominal Pain General: Chief Complaint: Abdominal Pain Stated Complaint: FALL Time Seen by Provider: 11/18/22 23:03 Source: patient and EMS Mode of arrival: EMS Limitations: no limitations History of Present Illness: 82-year-old female who has multiple medical issues she states that she has not been able to ambulate at home has been feeling increasingly weak that wheeled her over to the bathroom states she was unable to stand had laid on the floor and they were not able to get her up she did have a black tarry bowel movement has black tarry stools here she is unsure how long its been going on denies any known history of GI bleeds she denies any vomiting or diarrhea denies any pain besides chronic back pain. Associated Symptoms: Reports melena; Denies chills, diarrhea, dysuria, fever(s), nausea and vomiting Review of Systems Const: Reports: fatigue and malaise; Denies: fever(s) or chills Eyes: Denies: blurry vision or eye discomfort ENMT: Denies: throat pain or dental pain Card: Denies: chest pain Resp: Denies: dyspnea GI: Reports: melena; Denies: abdominal pain, nausea, vomiting or diarrhea : Denies: dysuria Musc: Reports: back pain; Denies: neck pain Skin/Breast: Denies: rash Neuro: Denies: headache(s) PFSH ED PFSH: Medical History Acute hypokalemia MATTIE (acute kidney injury) Anemia COPD (chronic obstructive pulmonary disease) Decubitus ulcer Diabetes Heart failure Myelodysplasia (myelodysplastic syndrome) PAD (peripheral artery disease) Pneumonia Pneumonia due to COVID-19 virus Pulmonary HTN Sleep apnea Surgical History Hx of appendectomy Hx of cataract extraction Hx of section Hx of cholecystectomy Hx of hysterectomy Family History Mother CAD (coronary artery disease) Diabetes Daughter Diabetes Lung disease Suicide Son Diabetes Lung disease Denies family history of Clotting disorder Dementia Chronic kidney disease (CKD) Anesthesia complication Bleeding disorder Cancer Stroke Social History Smoking and tobacco status: former smoker (smoked x 8 years) Alcohol intake: never Substance/Drug Use: never Lives independently: Yes Household members: other Details: Son Physical Exam Const: COMMON NORMALS: patient oriented x3 GENERAL APPEARANCE: ill appearing NUTRITIONAL APPEARANCE: obese HENMT: COMMON NORMALS: normocephalic and atraumatic HEAD & SCALP: normocephalic and atraumatic Eye: COMMON NORMALS: Equal, round and reactive pupils present and EOMs intact bilaterally PUPIL: Yes Equal, round and reactive pupils present Neck/C-Spine: COMMON NORMALS: full ROM and supple Chest: COMMONS NORMALS: normal inspection of the chest and normal palpation of entire chest wall Resp: COMMON NORMALS: No retractions and No use of accessory muscles EFFORT & INSPECTION: Yes labored AUSCULTATION: rales Cardio: COMMON NORMALS: regular rate, regular rhythm and No murmurs present (Cardio) RATE: regular rate RHYTHM: regular rhythm GI: COMMON NORMALS: Normal to inspection, nondistended, normoactive bowel sounds present, Soft to palpation, non-tender and no masses PALPATION: Yes Soft to palpation OTHER: Large amount of black tarry stool in her diaper. Is Hemoccult positive Extremity: COMMON NORMALS: normal to inspection and full ROM Neuro: COMMON NORMALS: patient oriented x3, moves all extremities and no focal motor deficits Psych: COMMON NORMALS: mental status grossly normal, Normal thought process present and cooperative THOUGHT PROCESS: Normal thought process present Skin: COMMON NORMALS: no rashes or lesions noted and no wounds GENERAL SKIN EXAM: no rashes or lesions noted Course Vital Signs: Vital signs: Vital Signs Temperature 94.1 F L 11/19/22 03:29 Pulse Rate 44 L 11/19/22 03:35 Respiratory Rate 23 H 11/19/22 03:35 Blood Pressure 130/40 11/19/22 03:35 Pulse Oximetry 96 11/19/22 03:35 Oxygen Delivery Me thod Nasal Cannula 11/19/22 00:35 Oxygen Flow Rate 6 11/19/22 00:35 MDM - Abdominal Pain Medical Decision Making Patient presents here with acute GI bleed. She also has multiple other medical issues she does have a heart block here she has a history of cardiac disease she also is hyponatremic with acute kidney injury and hyperkalemia we will give insulin D50 along with calcium gluconate we will transfuse blood here I spoke to the hospitalist will admit to ICU. Medical Records I reviewed the patient's medical records. Lab Data I reviewed the patient's lab results. 11/19/22 00:25 11/19/22 00:25 Labs/Radiology: Radiology Impressions Chest X-Ray 11/18/22 23:09 IMPRESSION: 1. Cardiomegaly is present. 2. Pulmonary venous congestion and bilateral infiltrates noted. Findings are suggestive of fluid overload/CHF. This is new when compared to XR chest dated 08/28/2022. 3. Small bilateral pleural effusions, right larger than left. Laboratory Results WBC 8.4 10^3/uL (4.0-10.0) 11/19/22 00:25 RBC 2.80 10^6/uL (4.1-5.3) L 11/19/22 00:25 Hgb 8.5 g/dL (11.5-15.3) L 11/19/22 00:25 Hct 27.7 % (37.0-47.0) L 11/19/22 00:25 MCV 98.9 fl (81-99) 11/19/22 00:25 MCH 30.4 pg (28.0-34.0) 11/19/22 00:25 MCHC 30.7 g/dL (30.0-36.0) 11/19/22 00:25 RDW 14.5 % (12.1-15.1) 11/19/22 00:25 Plt Count 200 10^3/cmm (130-400) 11/19/22 00:25 MPV 9.8 fL (7.4-10.4) 11/19/22 00:25 Neut % (Auto) 93.8 % 11/19/22 00:25 Lymph % (Auto) 3.6 % 11/19/22 00:25 [place] % (Auto) 2.0 % 11/19/22 00:25 Eos % (Auto) 0.0 % 11/19/22 00:25 Baso % (Auto) 0.0 % 11/19/22 00:25 Neut # (Auto) 7.86 10^3/uL (1.8-7.7) H 11/19/22 00:25 Lymph # (Auto) 0.3 10^3/uL (0.8-4.8) L 11/19/22 00:25 [place] # (Auto) 0.2 10^3/uL (0.2-0.9) 11/19/22 00:25 Eos # (Auto) 0.0 10^3/uL (0.0-0.8) 11/19/22 00:25 Baso # (Auto) 0.0 10^3/uL (0.0-0.1) 11/19/22 00:25 Nucleated RBC % (auto) 0 % 11/19/22 00:25 Nucleated RBCs # 0.0 /100WBC 11/19/22 00:25 PT 13.70 SECONDS (12.1-14.9) 11/19/22 00:25 INR 1.02 (0.8-1.2) 11/19/22 00:25 Sodium 116 mmol/L (136-145) L* 11/19/22 00:25 Potassium 6.2 mmol/L (3.5-5.1) H 11/19/22 00:25 Chloride 78 mmol/L (98-107) L 11/19/22 00:25 Carbon Dioxide 29 mmol/L (22-29) 11/19/22 00:25 Anion Gap 15.2 (5-19) 11/19/22 00:25 BUN 70 mg/dL (8-23) H 11/19/22 00:25 Creatinine 2.7 mg/dL (0.5-0.9) H 11/19/22 00:25 GFR Calculation Not Reportable 11/19/22 00:25 Glucose 192 mg/dL (65-115) H 11/19/22 00:25 Calculated Osmolality 268 mOsm/kg (285-295) L 11/19/22 00:25 Calcium 10.3 mg/dL (8.5-10.5) 11/19/22 00:25 Total Bilirubin 0.3 mg/dL (0.15-1.2) 11/19/22 00:25 AST 16 U/L (0-32) 11/19/22 00:25 ALT 15 U/L (0-33) 11/19/22 00:25 Alkaline Phosphatase 76 U/L (35-105) 11/19/22 00:25 NT-Pro-B Natriuret Pep 990 pg/mL (0-450) H 11/19/22 00:35 Total Protein 6.7 g/dL (6.6-8.7) 11/19/22 00:25 Albumin 4.0 g/dL (3.5-5.2) 11/19/22 00:25 Globulin 2.7 g/dL (1.3-4.6) 11/19/22 00:25 Lipase 80 U/L (13-60) H 11/19/22 00:25 Blood Type B Positive 11/19/22 00:25 Rho(D) Type Positive 11/19/22 00:25 Antibody Screen Negative 11/19/22 00:25 Crossmatch See Detail 11/19/22 00:25 EKG Data EKG 1: I personally reviewed and interpreted this EKG as follows: EKG interpretation date: 11/19/22 EKG interpretation time: 01:13 Interpretation: bradycardia hr [address] or t wave abnormalities qrs 117 qtc 418 Discharge Plan Discharge Patient Disposition: Admitted As Inpatient Admit Provider: Agnes Hackett Clinical Impression: Acute on chronic diastolic (congestive) heart failure, MATTIE (acute kidney injury), Acute hyperkalemia, Acute hyponatremia, Acute upper GI bleed Condition: Stable Coding Level of Care Code 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
[2022-11-19] VITALS (79 sets, daily range): BP systolic 93–159; BP diastolic 26–77; PULSE 30–71; RESP 11–35; TEMP 34.1–36.4; O2SAT 91–100; BMI 43.7
[2022-11-19] MEDS: pantoprazole 40 mg SDV 80 MG IVP (00:32)
[2022-11-19 00:39] LABS: Hematocrit 27.7 % (37.0-47.0); Hemoglobin 8.5 g/dL (11.5-15.3); Lymphocytes # 0.3 10^3/uL (0.8-4.8); Lymphocytes % 3.6 %; Mean Corpuscular HGB Conc 30.7 g/dL (30.0-36.0); Mean Corpuscular Hemoglobin 30.4 pg (28.0-34.0); Mean Corpuscular Volume 98.9 fl (81-99); Mean Platelet Volume 9.8 fL (7.4-10.4); Monocytes # 0.2 10^3/uL (0.2-0.9); Neutrophils # 7.86 10^3/uL (1.8-7.7); Neutrophils % 93.8 %; Nucleated Red Blood Cells % 0 %; Platelet Count 200 10^3/cmm (130-400); Red Cell Distribution Width 14.5 % (12.1-15.1); White Blood Count 8.4 10^3/uL (4.0-10.0)
[2022-11-19 00:54] LABS: INR 1.02 (0.8-1.2)
[2022-11-19 01:06] LABS: Alanine Aminotransferase 15 U/L (0-33); Alkaline Phosphatase 76 U/L (35-105); Anion Gap 15.2 (5-19); Aspartate Amino Transferase 16 U/L (0-32); Blood Urea Nitrogen 70 mg/dL (8-23); Calcium 10.3 mg/dL (8.5-10.5); Carbon Dioxide 29 mmol/L (22-29); Chloride 78 mmol/L (98-107); Globulin 2.7 g/dL (1.3-4.6); Glucose 192 mg/dL (65-115); Lipase 80 U/L (13-60); Osmolality Calculated 268 mOsm/kg (285-295); Potassium 6.2 mmol/L (3.5-5.1); Total Bilirubin 0.3 mg/dL (0.15-1.2); Total Protein 6.7 g/dL (6.6-8.7)
[2022-11-19] MEDS: pantoprazole 40 MG in sodium chloride 0.9% (plus) 100 ML 20 MG IV ×3 (01:24→10:44)
[2022-11-19 01:32] LABS: Sodium 116 mmol/L (136-145)
[2022-11-19] MEDS: insulin regular-human 100 units/1 mL 10 UNIT IVP (02:03)
[2022-11-19] MEDS: calcium gluconate 0.1 gm/mL 10% SDV 10mL 1 GM IVP (02:20)
[2022-11-19 02:35] LABS: NT Pro B Type Natriuretic Pept 990 pg/mL (0-450)
--- NOTE | 2022-11-19 03:45 | PM.HP ---
Providers/Chief Complaint Admitting Physician: Agnes Hackett MD Primary Care Provider: Deep Angeles DO Chief Complaint: FALL History of Present Illness Beth Winkler is a 82 year old female who is chronically ill because of multiple comorbidities, including COPD on 2 Ls oxygen at home, DM, PVD, HFpEF,?atrial fibrillation. She was recently admitted to the hospital between October 16 to October 27, 2022 for NSTEMI, CHF decompensation, A-fib with RVR. She needed aggressive diuresis which led to complication of MATTIE on CKD, coronary angiogram was deferred due to her MATTIE. Anticoagulation was discontinued on this previous visit due to a hemoglobin drop to 7.7 and presumed GI bleeding. She is brought into the emergency room today due to increasing lethargy, weakness over the last week, history is obtained by talking to her daughter Martha Winkler as patient is somnolent and lethargic, unable to keep up with the conversation. Per patient's daughter she has appeared to be increasingly pale over the past 3 to 4 days, she fell at home on Mother's Day which appears to be a syncopal episode per description, EMS was called to patient's home however she refused to come to the hospital for unclear reasons. Today she became increasingly lethargic with delayed responses and was therefore brought to the emergency room. Since she has been here she is noted to have multiple episodes of melena. She is hypothermic, bradycardic, has evidence of MATTIE on CKD with creatinine at 2.7. She has hyperkalemia with K of 6.2 and hyponatremia with sodium 116. She is unable to provide much history. No recent fever chills cough chest pain abdominal pain or vomiting. Review of Systems General: Reports: 10 or more systems reviewed and unremarkable except in HPI and below Const: Denies: fever(s), chills or body aches Eyes: Denies: change in vision, blurry vision or photophobia ENMT: Reports: hoarseness; Denies: throat pain, enlarged tonsils, odynophagia or nasal congestion Card: Denies: chest pain, palpitations, irregular heart rhythm, edema, swelling of feet/ankles, lightheadedness, pre-syncope, dyspnea on exertion or orthopnea Resp: Denies: dyspnea, productive cough, non-productive cough, wheezing, stridor, pain on inspiration, change in phlegm color, hemoptysis or chest congestion GI: Denies: abdominal pain, nausea, vomiting, hematemesis, coffee ground emesis, dysphagia, heartburn, diarrhea, constipation, GI cramping, change in stool character, hematochezia or melena : Denies: flank pain, difficulty voiding, dysuria, urinary frequency, urinary urgency, urinary hesitancy or hematuria Musc: Denies: neck pain, back pain, extremity pain, joint swelling, joint warmth or deformity Neuro: Denies: headache(s), numbness in extremities, weakness in extremities, sensory changes, difficulty walking, frequent falls, dizziness, vertigo, behavioral changes, Slurred speech present or seizure-like activity Psych: Denies: anxiety, depression, suicidal ideation or homicidal ideation Endo: Denies: polyuria, polydipsia, tired all the time, cold intolerance or hot flashes Luke/Lymph: Denies: easy bruising or easy bleeding Medications/Allergies Home Medications Medication Instructions Recorded Confirmed Last Taken Type albuterol sulfate 90 mcg/actuation 2 puff inhalation Q6H PRN 06/29/20 11/11/22 08/20/22 History aerosol inhaler Shortness Of Breath aspirin 81 mg chewable tablet 81 mg PO DAILY 06/29/20 11/11/22 10/15/22 History atorvastatin 20 mg tablet 20 mg PO BEDTIME 06/29/20 11/11/22 10/15/22 History fluticasone propionate 50 1 spray intranasal DAILY 06/29/20 11/11/22 10/15/22 History mcg/actuation nasal spray,suspension insulin lispro 100 unit/mL See Rx Instructions .Route .COMPLEX 06/29/20 11/11/22 08/20/22 History subcutaneous pen (Humalog KwikPen (U-100) Insulin) latanoprost 0.005 % eye drops 1 drp ophthalmic (eye) BEDTIME 06/29/20 11/11/22 10/15/22 History fgptvk-mpdkymno-fgjkbww 2 cap PO TID 06/29/20 11/11/22 10/15/22 History 24,000-76,000-120,000 unit capsule,delayed rel (Creon) mupirocin 2 % topical ointment 1 applic topical DAILY 06/29/20 11/11/22 Unknown History pantoprazole 40 mg tablet,delayed 40 mg PO DAILY 06/29/20 11/11/22 10/15/22 History release umeclidinium 62.5 mcg-vilanterol 2 ea inhalation DAILY 06/29/20 11/11/22 08/20/22 History 25 mcg/actuation powdr for inhalation (Anoro Ellipta) dorzolamide 2 % eye drops 1 drp ophthalmic (eye) BID 07/27/20 11/11/22 10/15/22 History ondansetron HCl 4 mg tablet 4 mg PO Q6H PRN nausea and vomiting 07/27/20 11/11/22 08/20/22 History gabapentin 100 mg capsule 100 mg PO TID 11/16/20 11/11/22 10/15/22 History clonidine HCl 0.1 mg tablet 0.2 mg PO BID 11/15/21 11/11/22 10/15/22 History biotin 5,000 mcg sublingual tablet 5,000 mcg sublingual BID 08/20/22 11/11/22 10/15/22 History cholecalciferol (vitamin D3) 25 25 mcg PO DAILY 08/20/22 11/11/22 10/15/22 History mcg (1,000 unit) capsule (Vitamin D3) ferrous sulfate 325 mg (65 mg 325 mg PO TID 08/20/22 11/11/22 10/15/22 History iron) tablet (iron) insulin glargine U-300 conc 300 130 unit SUBCUT DAILY 08/20/22 11/11/22 10/15/22 History unit/mL (1.5 mL) subcutaneous pen ([place] SoloStar U-300 Insulin) mjtoqbme-pls-ffavk ac 400 1 tab PO DAILY 08/20/22 11/11/22 10/15/22 History mcg-calcium carb 500 mg-vit K1 20 mcg tablet (Women's 50 Plus Multivitamin) clotrimazole 1 % topical cream 1 applic topical BID 4 weeks #30 08/28/22 11/11/22 10/15/22 Rx grams furosemide 40 mg tablet 60 mg PO DAILY@0800 #90 tabs 09/11/22 11/11/22 10/15/22 Rx hydralazine 25 mg tablet 25 mg PO TID #90 tabs 09/11/22 11/11/22 10/15/22 Rx adalimumab 40 mg/0.4 mL 40 mg SUBCUT Q7D 10/16/22 11/11/22 Unknown History subcutaneous pen kit (Humira(CF) Pen) albuterol sulfate 2.5 mg/3 mL 2.5 mg inhalation QID PRN 10/16/22 11/11/22 Unknown History (0.083 %) solution for nebulization Shortness Of Breath ipratropium bromide 0.02 % 2.5 ml inhalation QID PRN 10/16/22 11/11/22 Unknown History solution for inhalation Shortness Of Breath diltiazem HCl 120 mg 120 mg PO DAILY #30 caps 10/27/22 11/11/22 Unknown Rx capsule,extended release 24 hr metolazone 5 mg tablet 5 mg PO DAILY 30 days #30 tabs 10/27/22 11/11/22 Unknown Rx amiodarone 200 mg tablet (Pacerone) 200 mg PO DAILY #90 tabs 11/11/22 11/11/22 Unknown Rx scopolamine base 1 mg over 3 days 1 patch transdermal Q3D PRN 11/11/22 11/11/22 Unknown History transdermal patch Allergies Allergy/AdvReac Type Severity Reaction Status Date / Time doxycycline Allergy Unknown Verified 09/11/22 15:59 Sulfa (Sulfonamide Allergy ALGY-Rash Verified 09/11/22 15:59 Antibiotics) PFSH Acute PFSH: Medical History Acute hypokalemia MATTIE (acute kidney injury) Anemia COPD (chronic obstructive pulmonary disease) Decubitus ulcer Diabetes Heart failure Myelodysplasia (myelodysplastic syndrome) PAD (peripheral artery disease) Pneumonia Pneumonia due to COVID-19 virus Pulmonary HTN Sleep apnea Surgical History Hx of appendectomy Hx of cataract extraction Hx of section Hx of cholecystectomy Hx of hysterectomy Family History Mother CAD (coronary artery disease) Diabetes Daughter Diabetes Lung disease Suicide Son Diabetes Lung disease Denies family history of Clotting disorder Dementia Chronic kidney disease (CKD) Anesthesia complication Bleeding disorder Cancer Stroke Social History Smoking and tobacco status: former smoker (smoked x 8 years) Alcohol intake: never Substance/Drug Use: never Lives independently: Yes Household members: other Details: Son Vitals/I&O/Wt Last Vital Signs Temp 94.1 F L 11/19/22 03:29 Pulse 44 L 11/19/22 03:35 Resp 23 H 11/19/22 03:35 BP 130/40 11/19/22 03:35 Pulse Ox 96 11/19/22 03:35 O2 Del Method Nasal Cannula 11/19/22 00:35 O2 Flow Rate 6 11/19/22 00:35 11/18/22 11/18/22 11/19/22 14:59 22:59 06:59 Intake Total 50 / 50 Balance 50 / 50 Weight last 48 hrs Weight 147.418 kg Physical Exam Narrative: General: Lethargic, chronically ill-appearing lady, somnolent HEENT: PERRLA, pupils bilaterally equal and reactive, pallors not present Chest: Crackles bilaterally CVS: S1-S2 regular, bradycardic Abdomen: Soft, nontender, no organomegaly, bowel sounds present Neuro: Moves all extremities while laying in bed, able to answer all orientation questions Extremities: Lower extremity edema bilaterally Data 11/19/22 00:25 11/19/22 00:25 Other Labs: Radiology Impressions Chest X-Ray 11/18/22 23:09 IMPRESSION: 1. Cardiomegaly is present. 2. Pulmonary venous congestion and bilateral infiltrates noted. Findings are suggestive of fluid overload/CHF. This is new when compared to XR chest dated 08/28/2022. 3. Small bilateral pleural effusions, right larger than left. Laboratory Results WBC 8.4 10^3/uL (4.0-10.0) 11/19/22 00:25 RBC 2.80 10^6/uL (4.1-5.3) L 11/19/22 00:25 Hgb 8.5 g/dL (11.5-15.3) L 11/19/22 00:25 Hct 27.7 % (37.0-47.0) L 11/19/22 00:25 MCV 98.9 fl (81-99) 11/19/22 00:25 MCH 30.4 pg (28.0-34.0) 11/19/22 00:25 MCHC 30.7 g/dL (30.0-36.0) 11/19/22 00:25 RDW 14.5 % (12.1-15.1) 11/19/22 00:25 Plt Count 200 10^3/cmm (130-400) 11/19/22 00:25 MPV 9.8 fL (7.4-10.4) 11/19/22 00:25 Neut % (Auto) 93.8 % 11/19/22 00:25 Lymph % (Auto) 3.6 % 11/19/22 00:25 [place] % (Auto) 2.0 % 11/19/22 00:25 Eos % (Auto) 0.0 % 11/19/22 00:25 Baso % (Auto) 0.0 % 11/19/22 00:25 Neut # (Auto) 7.86 10^3/uL (1.8-7.7) H 11/19/22 00:25 Lymph # (Auto) 0.3 10^3/uL (0.8-4.8) L 11/19/22 00:25 [place] # (Auto) 0.2 10^3/uL (0.2-0.9) 11/19/22 00:25 Eos # (Auto) 0.0 10^3/uL (0.0-0.8) 11/19/22 00:25 Baso # (Auto) 0.0 10^3/uL (0.0-0.1) 11/19/22 00:25 Nucleated RBC % (auto) 0 % 11/19/22 00:25 Nucleated RBCs # 0.0 /100WBC 11/19/22 00:25 PT 13.70 SECONDS (12.1-14.9) 11/19/22 00:25 INR 1.02 (0.8-1.2) 11/19/22 00:25 Sodium 116 mmol/L (136-145) L* 11/19/22 00:25 Potassium 6.2 mmol/L (3.5-5.1) H 11/19/22 00:25 Chloride 78 mmol/L (98-107) L 11/19/22 00:25 Carbon Dioxide 29 mmol/L (22-29) 11/19/22 00:25 Anion Gap 15.2 (5-19) 11/19/22 00:25 BUN 70 mg/dL (8-23) H 11/19/22 00:25 Creatinine 2.7 mg/dL (0.5-0.9) H 11/19/22 00:25 GFR Calculation Not Reportable 11/19/22 00:25 Glucose 192 mg/dL (65-115) H 11/19/22 00:25 Calculated Osmolality 268 mOsm/kg (285-295) L 11/19/22 00:25 Calcium 10.3 mg/dL (8.5-10.5) 11/19/22 00:25 Total Bilirubin 0.3 mg/dL (0.15-1.2) 11/19/22 00:25 AST 16 U/L (0-32) 11/19/22 00:25 ALT 15 U/L (0-33) 11/19/22 00:25 Alkaline Phosphatase 76 U/L (35-105) 11/19/22 00:25 NT-Pro-B Natriuret Pep 990 pg/mL (0-450) H 11/19/22 00:35 Total Protein 6.7 g/dL (6.6-8.7) 11/19/22 00:25 Albumin 4.0 g/dL (3.5-5.2) 11/19/22 00:25 Globulin 2.7 g/dL (1.3-4.6) 11/19/22 00:25 Lipase 80 U/L (13-60) H 11/19/22 00:25 Blood Type B Positive 11/19/22 00:25 Rho(D) Type Positive 11/19/22 00:25 Antibody Screen Negative 11/19/22 00:25 Crossmatch See Detail 11/19/22 00:25 A&P Assessment and plan (1) Acute hyperkalemia: (2) Acute hyponatremia: (3) Acute upper GI bleed: (4) Bradycardia: (5) CHF (congestive heart failure): (6) Anemia: (7) Mitral stenosis: (8) Pleural effusion: (9) MATTIE (acute kidney injury): (10) Pulmonary edema: Qualifiers: Chronicity: acute Qualified Code(s): J81.0 - Acute pulmonary edema (11) Pulmonary HTN: Plan 82-year-old lady with multiple comorbidities as listed above presenting today with acute hyponatremia, acute hyperkalemia, MATTIE on CKD, acute on chronic CHF exacerbation, acute on chronic hypoxic respiratory failure and upper GI bleed. # UGI bleed : Multiple episodes of melena as noticed to the emergency room. On her last admission anticoagulation had been discontinued and patient has remained off of this. Currently hemoglobin is at 8.5, on last admission this was at 7.7. 1 unit of packed red blood cell transfusion has been ordered from the emergency room which is currently transfusing. Protonix 80 mg IV given, currently on Protonix 8 mg/h IV infusion. Blood pressure is currently stable Surgery consult for endoscopic evaluation once stabilized. Hold Asa #Acute on chronic hypoxic respiratory failure Currently reading 6 L/min supplemental O2, typically between 2 to 3 L/min Multifactorial related to acute on chronic CHF exacerbation, pulmonary edema, bilateral pleural effusions, pulmonary hypertension Lasix 40 mg IV now duoneb every 6 hrs for COPD, not currently exacerbated Further doses to be dependent on renal function and urine output #Acute on chronic heart failure with preserved ejection fraction Lasix as above Recent NSTEMI on admission between October 16 to October 27 EKG currently showing bradycardia, appears to have intermittent junctional rhythm with a baseline sinus bradycardia. QTc is not prolonged. Holding home doses of Cardizem and amiodarone at this time #Bradycardia with heart rate ranging between 40 to 50 bpm Appearing to be a baseline of sinus bradycardia with intermittent junctional rhythm Hold amiodarone and Cardizem as above May be related to hyperkalemia She has received 1 amp of calcium gluconate Monitor for improvement with correction of hyperkalemia. Check baseline troponin, if elevated will go ahead and proceed with full series. #MATTIE on CKD Check urine lites, urine creatinine May related to diuresis Lasix 40 mg IV now, hold home dose of metolazone Nephrology consult to assess for possible HD given hyperkalemia, volume overload, hyponatremia perry catheter, closely monitor all I/O #Hyperkalemia Thus far she has received insulin dextrose, albuterol nebulization Calcium gluconate 1 g IV once Admitted to ICU and closely monitored on telemetry #Hyponatremia Acute hyponatremia with sodium at 116 Patient is lethargic, somnolent which may be related to acute hyponatremia Hypertonic saline 3% 100 mL x 1 Recheck sodium at 6 AM Aim for correction 8 to 10 mEq over next 24 hours # severe pulmonary HTN Pulmonary artery peak systolic pressure 73 mmHg. # mitral stenosis dvt ppx: SCDs PUD ppx: protonix infuscion currently Full code - confirmed with patient and her daughter Martha. Attestations Medical Necessity Statement*: Greater than 2 midnight admission will be needed for above defined care Critical Care Time: The high probability of a clinically significant, sudden or life threatening deterioration of the patient's [renal, cardiac,c respiratory] system(s) required my full and direct attention, intervention and personal management. The critical care time is as shown. This time is in addition to time spent performing any reported procedures but includes the following: [x] Data and vital sign review and interpretation [x] Patient assessment, examination and intervention [x] Documentation [x] Medication orders and management Coding Level of Care Code Critical Care >/= 30 minutes Diagnoses Acute hyperkalemia E87.5 Acute hyponatremia E87.1 Acute upper GI bleed K92.2 Bradycardia R00.1 CHF (congestive heart failure) I50.9 Anemia D64.9 Mitral stenosis I05.0 Pleural effusion J90 MATTIE (acute kidney injury) N17.9 Pulmonary edema J81.0 Chronicity: acute Pulmonary HTN I27.20
[2022-11-19 03:51] LABS: Troponin(5th) Baseline 12 ng/L (0-10)
[2022-11-19] MEDS: sodium chloride 3% 100 ML in empty flexible container 1 EACH 200 ML IV (04:39)
[2022-11-19] MEDS: FUROsemide 10 mg/mL SDV 4mL 40 MG IVP (04:46)
[2022-11-19 04:53] LABS: Potassium, Radom Urine 47 mmol/L; Urine Creatinine 127 mg/dL (28-217)
[2022-11-19 05:28] LABS: Specific Gravity, Urine 1.025 (1.005-1.030); Urine Appearance Hazy (CLEAR); Urine Color Yellow (Yellow); pH Urine 5 (5-7)
[2022-11-19 05:31] LABS: Urine Random Chloride 10 mmol/L; Urine Random Sodium 10 mmol/L
[2022-11-19 05:33] LABS: Add Urine Microscopic? YES; Bilirubin Urine Neg (Negative); Blood Urine Neg (Negative); Glucose Urine UA Norm (Normal); Ketones Urine Negative (Negative); Leukocyte Esterase Urine Negative (Negative); Nitrate Urine Negative (Negative); Protein Urine Neg (Negative); Urobilinogen Urine Neg (Negative)
[2022-11-19 05:34] LABS: Bacteria Urine 3+ /hpf; Calcium Oxalate Crystals Urine 0-4 /hpf; RBC Urine 0-4 /hpf (0-2)
[2022-11-19 05:35] LABS: Add Urine Culture? No; Mucus Urine 1+ /hpf
--- NOTE | 2022-11-19 05:43 | PC.NURSE ---
Admission Note: Pt arrived to ICU 12 from ER via stretcher @0606 11/19/22. Pt is lethargic, able to tell me her came, opens eyes to painful stimuli. Admission re-timed to 0900 due to lethergy. SpO2 80%, pt placed on nonrebreather @10L then switched to BIPAP. HR: 35. DBP low. Continuos cardiac monitoring continued. Not reporting any pain. excoriation under bilateral breath and in the groin notes.
--- NOTE | 2022-11-19 06:22 | PC.NURSE ---
Addendum entered by Stefanie Salinas RN 11/19/22 06:33: New order for PRN Atropine, PRN reason HR less than 30. Original Note: HR 30's: Contacted Dr. Hackett via secured messaging, no answer, no new orders. Pt is asymptomatic.
--- NOTE | 2022-11-19 06:52 | ECG_ITS ---
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 Measurements Intervals [place] Rate: 30 P: -58 MI: 179 QRS: 41 QRSD: 116 T: 55 QT: 557 QTc: 398 Interpretive Statements SINUS BRADYCARDIA INDETERMINATE AXIS LOW QRS VOLTAGE [QRS DEFLECTION < 0.5/1.0 mV IN LIMB/CHEST LEADS] POSSIBLE ANTERIOR MYOCARDIAL INFARCTION , PROBABLY OLD [30 ms Q WAVE IN V3/V4, OR R < 0.2 mV IN V4] PROLONGED QT INTERVAL Compared to ECG 11/19/2022 01:13:25 Low QRS voltage now present Myocardial infarct finding now present Prolonged QT interval now present Intraventricular conduction delay no longer present Electronically Signed On 11-19-2022 16:54:16 CDT by Livan Edwards M.D. [email or web address]
[2022-11-19 07:09] LABS: Glucose Point of Care 253 mg/dL (70-110)
[2022-11-19] MEDS: ipratropium-albuterol 3 mL Neb INHALATION ×3 (07:55→19:47)
--- NOTE | 2022-11-19 08:46 | PC.PHAR ---
WAITING FOR PTS PHARMACY TO OPEN TO VERIFY MEDICATION LAST FILLED
--- NOTE | 2022-11-19 08:52 | XR_ITS ---
WS: [id number] PORTABLE CHEST x2. HISTORY: PICC placement COMPARISON: 11/18/2022. First radiograph: Left-sided PICC line in expected location of the distal SVC but overlies a cardiac lead. There is mild volume loss and at least a small layering RIGHT pleural effusion. Second radiograph: Patient is still slightly rotated to the RIGHT. PICC line in the distal SVC in goo d position. No pneumothorax. XR/XR chest 1V portable [id number] IMPRESSION: Satisfactory position of left-sided PICC line.
--- NOTE | 2022-11-19 09:00 | PC.NURSE ---
Double lumen PICC inserted with difficulty to left brachial vein. John Suarez RN assisted with access. Trimmed length 47 cm with 3 cm external length noted. Mid-arm circumference measured from left AC 41 cm. Chest xray notes cath tip in SVC in good position to use. EBL < 10 mL. Dressing due to be changed 11/20/22. Report given to bedside nurseDemetri.
[2022-11-19] MEDS: calcium gluconate 0.9% NaCL 1 GM/50 ML PREMIX IV (09:20)
[2022-11-19] MEDS: DOPamine drip 400 MG/250 ML PREMIX 23.01 MG IV (09:21)
[2022-11-19] MEDS: insulin lispro 100 unit/1 mL SUBCUT ×2 (09:21→12:16)
[2022-11-19 09:33] LABS: ABG PH Result 7.22 (7.35-7.45); Alveolar-Arterial Oxygen Gradi 12.1 mmHg (5-10); Arterial Blood Gas Hematocrit 27.9 % (37-47); Base Excess ABG 0.9 mmol/L (-2.0-2.0); Blood Gas Allen Test Pos; Blood Gas Operator Identificat MONRO; Blood Gas Sample Site Brachial, right; Blood Gas Sample Type Arterial; Carboxyhemoglobin 2.1 %THgb (0.4-20.1); HCO3 ABG 29.6 mmol/L (22-26); HGB O2 Sat 91.6 % (95-100); Ionized Calcium Level - ABG 1.4 mmol/L (1.1-1.4); Methemoglobin 0.7 % (0.4-1.5); Oxygen Device BIPAP; Oxygen Saturation ABG 94.2; PO2 ABG 69.9 mmHg (80.0-100.0); Potassium Level - ABG 5.7 mmol/L (3.5-5.0); Total Hemoglobin 9.1 g/dL (12-16)
[2022-11-19 09:34] LABS: ABG PCO2 71.9 mmHg (35-45)
[2022-11-19 10:11] LABS: Basophils % 0.2 %; Hematocrit 29.8 % (37.0-47.0); Hemoglobin 9.4 g/dL (11.5-15.3); Lymphocytes # 0.5 10^3/uL (0.8-4.8); Lymphocytes % 7.4 %; Mean Corpuscular HGB Conc 31.5 g/dL (30.0-36.0); Mean Corpuscular Hemoglobin 31.2 pg (28.0-34.0); Mean Platelet Volume 10.4 fL (7.4-10.4); Monocytes # 0.3 10^3/uL (0.2-0.9); Neutrophils % 87.9 %; Nucleated Red Blood Cells % 0 %; Platelet Count 157 10^3/cmm (130-400); Red Blood Count 3.01 10^6/uL (4.1-5.3); Red Cell Distribution Width 15.3 % (12.1-15.1); White Blood Count 6.5 10^3/uL (4.0-10.0)
--- NOTE | 2022-11-19 10:16 | PC.PHAR ---
pt unable to confirm medications- meds verified using external med list and calling pts pharmacy to confirm last filled and picked up
--- NOTE | 2022-11-19 11:34 | PM.MISC ---
Miscellaneous Note Note: Patient was evaluated multiple times Spoke with the family She is full code My concern was related to indication for intubation patient was really obtunded requested ABG which showed respiratory acidosis however when we started dopamine drip her heart rate and blood pressure improved and patient woke up she was alert and oriented Patient wanted full CODE STATUS as well but stated she is not sure would like to discuss with family I have requested ICU nurse to get another ABG after 1 hour Nephro is consulted Patient is off Levophed Currently she is awake and alert Currently on BiPAP settings On dopamine Levophed turned off Blood pressure heart rate improved Junctional rhythm intermittent sinus bradycardia Patient is answer my questions appropriately Fluid overloaded state signs of congestive heart failure Left arm PICC line placed 11/19 Plan Melanotic acute on chronic anemia Status post 1 unit PRBC Hemoglobin stable Continue Protonix Patient is not ready for an EGD yet because she is requiring dopamine for her bradycardia Acute on chronic hypoxic hypercarbic respiratory failure Likely secondary to hypoventilation and CHF exacerbation Keep her on BiPAP for today She is full code Bradycardia related to electrolyte imbalance No active chest pain EKG showing sinus bradycardia no signs of infarction Treat reversible causes such as hyperkalemia give another dose of calcium gluconate Hold AV laura blocking agents MATTIE with underlying CKD secondary to hypotension Continue Lasix monitor urine output Hyponatremia with CHF/hypervolemia Nephro consulted Hypertonic saline given overnight Severe pulmonary hypertension History of multiple comorbid condition Mitral valve stenosis DVT prophylaxis with SCDs Protonix on board High risk for mortality morbidity
--- NOTE | 2022-11-19 12:08 | P.CONIM_ITS ---
Providers/Reason For Consult Consulting Physician/Specialty*: kommana/Nephrology Reason for Consult*: MATTIE Attending Physician: Milla Molina MD Primary Care Provider: Deep Angeles DO History of Present Illness History of Present Illness Beth Winkler is a 82 year old female Patient is a 82-year-old female with past medical history of COPD on home O2, diabetes, hypertension, A-fib, peripheral vascular disease, CKD was recently admitted to the hospital for NSTEMI CHF. She was diuresed during last admission which was temporarily held and diuretics resumed at the time of discharge. Patient's creatinine was 1.5 at the time of discharge. She presented back to the emergency department due to weakness, lethargy and possible syncopal episode. In the ED she was noted to be hyperkalemic with a K of 6.2 sodium was low at 116 and creatinine is elevated at 2.7. Hemoglobin was 8.5. In the ED patient had received a bolus of 3% saline. Repeat labs are pending. Also received calcium gluconate and D50 and insulin for hyperkalemia. Review of Systems Narrative: other ROS negative Medications/Allergies Home Medications Medication Instructions Recorded Confirmed Last Taken Type albuterol sulfate 90 mcg/actuation 2 puff inhalation Q6H PRN 06/29/20 11/19/22 08/20/22 History aerosol inhaler Shortness Of Breath aspirin 81 mg chewable tablet 81 mg PO DAILY 06/29/20 11/19/22 10/15/22 History atorvastatin 20 mg tablet 20 mg PO BEDTIME 06/29/20 11/19/22 10/15/22 History fluticasone propionate 50 1 spray intranasal DAILY 06/29/20 11/19/22 10/15/22 History mcg/actuation nasal spray,suspension insulin lispro 100 unit/mL See Rx Instructions .Route .COMPLEX 06/29/20 11/19/22 08/20/22 History subcutaneous pen (Humalog KwikPen (U-100) Insulin) latanoprost 0.005 % eye drops 1 drp ophthalmic (eye) BEDTIME 06/29/20 11/19/22 10/15/22 History nxizmv-iqluxqak-hhdizqm 2 cap PO TID 06/29/20 11/19/22 10/15/22 History 24,000-76,000-120,000 unit capsule,delayed rel (Creon) mupirocin 2 % topical ointment 1 applic topical DAILY 06/29/20 11/19/22 Unknown History pantoprazole 40 mg tablet,delayed 40 mg PO DAILY 06/29/20 11/19/22 10/15/22 History release umeclidinium 62.5 mcg-vilanterol 2 ea inhalation DAILY 06/29/20 11/19/22 08/20/22 History 25 mcg/actuation powdr for inhalation (Anoro Ellipta) dorzolamide 2 % eye drops 1 drp ophthalmic (eye) BID 07/27/20 11/19/22 10/15/22 History ondansetron HCl 4 mg tablet 4 mg PO Q6H PRN nausea and vomiting 07/27/20 11/19/22 08/20/22 History gabapentin 100 mg capsule 100 mg PO TID 11/16/20 11/19/22 10/15/22 History clonidine HCl 0.1 mg tablet 0.2 mg PO BID 11/15/21 11/19/22 10/15/22 History biotin 5,000 mcg sublingual tablet 5,000 mcg sublingual BID 08/20/22 11/19/22 0 10/15/22 History cholecalciferol (vitamin D3) 25 25 mcg PO DAILY 08/20/22 11/19/22 10/15/22 History mcg (1,000 unit) capsule (Vitamin D3) ferrous sulfate 325 mg (65 mg 325 mg PO TID 08/20/22 11/19/22 10/15/22 History iron) tablet (iron) insulin glargine U-300 conc 300 130 unit SUBCUT DAILY 08/20/22 11/19/22 10/15/22 History unit/mL (1.5 mL) subcutaneous pen (Toujeo SoloStar U-300 Insulin) fuztqrzg-jub-fggyp ac 400 1 tab PO DAILY 08/20/22 11/19/22 10/15/22 History mcg-calcium carb 500 mg-vit K1 20 mcg tablet (Women's 50 Plus Multivitamin) clotrimazole 1 % topical cream 1 applic topical BID 4 weeks #30 08/28/22 11/19/22 10/15/22 Rx grams furosemide 40 mg tablet 60 mg PO DAILY@0800 #90 tabs 09/11/22 11/19/22 10/15/22 Rx hydralazine 25 mg tablet 25 mg PO TID #90 tabs 09/11/22 11/19/22 10/15/22 Rx adalimumab 40 mg/0.4 mL 40 mg SUBCUT Q7D 10/16/22 11/19/22 Unknown History subcutaneous pen kit (Humira(CF) Pen) albuterol sulfate 2.5 mg/3 mL 2.5 mg inhalation QID PRN 10/16/22 11/19/22 Unknown History (0.083 %) solution for nebulization Shortness Of Breath ipratropium bromide 0.02 % 2.5 ml inhalation QID PRN 10/16/22 11/19/22 Unknown History solution for inhalation Shortness Of Breath diltiazem HCl 120 mg 120 mg PO DAILY #30 caps 10/27/22 11/19/22 Unknown Rx capsule,extended release 24 hr metolazone 5 mg tablet 5 mg PO DAILY 30 days #30 tabs 10/27/22 11/19/22 Unknown Rx amiodarone 200 mg tablet (Pacerone) 200 mg PO DAILY #90 tabs 11/11/22 11/19/22 Unknown Rx scopolamine base 1 mg over 3 days 1 patch transdermal Q3D PRN Nausea 11/11/22 11/19/22 Unknown History transdermal patch And Vomiting Allergies Allergy/AdvReac Type Severity Reaction Status Date / Time doxycycline Allergy Unknown Verified 09/11/22 15:59 Sulfa (Sulfonamide Allergy ALGY-Rash Verified 09/11/22 15:59 Antibiotics) Current Medications Generic Name Dose Route Start Last Admin Trade Name Freq PRN Reason Stop Dose Admin Albuterol/Ipratropium 3 ml 11/19/22 08:00 11/19/22 07:55 Ipratropium-Albuterol 3 Ml Neb INHALATION 3 ml Q6H.RESP DELVIN Administration Atropine Sulfate 0.4 mg 11/19/22 06:28 11/19/22 07:27 Atropine 0.4 Mg/Ml Sdv 1ml IVP 0.4 mg PRN PRN Administration heart rate < 35 Dopamine HCl/Dextrose 400 mg in 250 mls @ 23.014 mls/hr 11/19/22 09:15 11/19/22 09:21 Intropin Drip IV 5 mcg/kg/min CONT DELVIN 23.01 mls/hr Administration Protocol 5 MCG/KG/MIN Insulin Human Lispro 0 unit 11/19/22 08:00 11/19/22 09:21 Insulin Lispro 100 Unit/1 Ml SUBCUT 6 unit WM&BEDTIME DELVIN Administration Protocol PFSH Acute PFSH: Medical History (Updated 11/19/22 @ 12:09 by Bernarda Del Rio MD) Acute hypokalemia MATTIE (acute kidney injury) Anemia COPD (chronic obstructive pulmonary disease) Decubitus ulcer Diabetes Heart failure Myelodysplasia (myelodysplastic syndrome) PAD (peripheral artery disease) Pneumonia Pneumonia due to COVID-19 virus Pulmonary HTN Sleep apnea Surgical History Hx of appendectomy Hx of cataract extraction Hx of section Hx of cholecystectomy Hx of hysterectomy Family History Mother CAD (coronary artery disease) Diabetes Daughter Diabetes Lung disease Suicide Son Diabetes Lung disease Denies family history of Clotting disorder Dementia Chronic kidney disease (CKD) Anesthesia complication Bleeding disorder Cancer Stroke Social History Smoking and tobacco status: former smoker (smoked x 8 years) Alcohol intake: never Substance/Drug Use: never Lives independently: Yes Household members: other Details: Son Vitals/I&O/Wt Last Vital Signs Temp 93.4 F L 11/19/22 09:30 Pulse 71 11/19/22 12:00 Resp 22 H 11/19/22 12:00 BP 148/47 11/19/22 12:00 Pulse Ox 94 11/19/22 12:00 O2 Del Method BiPAP 11/19/22 12:00 O2 Flow Rate 6 11/19/22 03:44 FiO2 35 11/19/22 12:00 11/18/22 11/19/22 11/19/22 22:59 06:59 14:59 Intake Total 572 / 572 150 / 150 Output Total 400 / 400 Balance 172 / 172 150 / 150 Weight last 48 hrs Weight 122.742 kg Weight 122.742 kg Weight 147.418 kg Physical Exam Narrative: Patient lethargic, on BiPAP, bradycardic, regular rate and rhythm per report No pedal edema Urinary Catheter Management: Bocanegra: Cath Placed During This Visit: yes Reason for Continuing Indwelling Catheter: Accurate Measurement of Urinary Output in Critically Ill Patients Urinary Catheter Date of Insertion: 11/19/22 Urinary Catheter Time of Insertion: 04:25 Data 11/19/22 09:47 11/19/22 00:25 A&P Assessment and plan (1) Acute hyponatremia: (2) Acute hyperkalemia: Plan 1. Acute on chronic kidney disease: Creatinine baseline in the mid 1 range, now presented with a MATTIE of creatinine 2.7 today. Etiology unclear, patient oliguric -Agree with holding metolazone. -Continue as needed doses of IV Lasix -If no improvement may require CRRT/dialysis 2. Hyperkalemia: Status post med management, await repeat BMP 3. Hyponatremia: Sodium 116 on presentation, check urine sodium and urine osmolality. If repeat sodium less than 120 will restart 3% saline. 4. Acute on chronic respiratory failure: Multifactorial, volume overload, COPD 5. Bradycardia, holding amiodarone and Cardizem, further management per primary team and cardiology Patient evaluated using audiovisual cart. Time spent 45 minutes Consult Attestations Medical Necessity Statement: per medicine Coding Level of Care Code Acute Code for [facility] Fwd Diagnoses Acute hyponatremia E87.1 Acute hyperkalemia E87.5
[2022-11-19 12:15] LABS: Glucose Point of Care 221 mg/dL (70-110)
--- NOTE | 2022-11-19 12:20 | ECG_ITS ---
[facility] Test Date: 2022-11-19 Pat Name: Beth Winkler Department: Room: ICU12 Gender: Female [employer]: : 1940 Requested By: Milla Molina Order Number: [id number] Leila MD: Livan Edwards M.D. Measurements Intervals Eros Rate: 51 P: -62 WA: 208 QRS: 6 QRSD: 109 T: 72 QT: 434 QTc: 402 Interpretive Statements SINUS BRADYCARDIA LOW QRS VOLTAGE [QRS DEFLECTION < 0.5/1.0 mV IN LIMB/CHEST LEADS] POSSIBLE ANTERIOR MYOCARDIAL INFARCTION , OF INDETERMINATE AGE [30 ms Q WAVE IN V3/V4, OR R < 0.2 mV IN V4] Compared to ECG 11/19/2022 06:52:36 Indeterminate axis no longer present Prolonged QT interval no longer present Myocardial infarct finding still present Electronically Signed On 11-19-2022 16:52:57 CDT by Livan Edwards M.D. [id number]
[2022-11-19] MEDS: ondansetron 2 mg/ML SDV 2 mL 4 MG IVP ×2 (12:26→18:17)
[2022-11-19 12:38] LABS: Alanine Aminotransferase 16 U/L (0-33); Albumin Level 3.9 g/dL (3.5-5.2); Alkaline Phosphatase 71 U/L (35-105); Anion Gap 15.8 (5-19); Aspartate Amino Transferase 10 U/L (0-32); Blood Urea Nitrogen 79 mg/dL (8-23); Calcium 10.1 mg/dL (8.5-10.5); Carbon Dioxide 28 mmol/L (22-29); Chloride 83 mmol/L (98-107); Globulin 2.5 g/dL (1.3-4.6); Glucose 142 mg/dL (65-115); Magnesium 2.7 mg/dL (1.7-2.3); Osmolality Calculated 278 mOsm/kg (285-295); Potassium 5.8 mmol/L (3.5-5.1); Sodium 121 mmol/L (136-145); Total Bilirubin 0.4 mg/dL (0.15-1.2); Total Protein 6.4 g/dL (6.6-8.7)
--- NOTE | 2022-11-19 12:40 | PM.CONSULT ---
Providers/Reason For Consult Consulting Physician/Specialty*: Livan Edwards MD/ Cardiology Reason for Consult*: Bradycardia Requesting Physician: Dr Hackett Attending Physician: Milla Molina MD Primary Care Provider: Deep Angeles DO History of Present Illness History of Present Illness Beth Winkler is a 82 year old female with past medical history of HFpEF, atrial fibrillation, diabetes, PVD, COPD who was recently admitted to the hospital with NSTEMI and A-fib with RVR. She was brought to the ER at this time with lethargy, weakness. She was found to have MATTIE with significant electrolyte abnormalities including hyperkalemia and hyponatremia with sodium of 116. Patient is confused. Has some dyspnea on exertion. Denies chest pain. She was found to have junctional bradycardia to sinus bradycardia with a heart rate in 30s and 40s. Blood pressure was stable. No significant troponin elevation. Review of Systems General: Reports: 10 or more systems reviewed and unremarkable except in HPI and below Const: Denies: fever(s), chills, body aches, change in appetite or diaphoresis Card: Reports: dyspnea on exertion and orthopnea; Denies: palpitations, edema, swelling of feet/ankles or leg pain with exertion Resp: Reports: dyspnea; Denies: productive cough, wheezing or pain on inspiration GI: Denies: abdominal pain, nausea, vomiting, diarrhea or constipation : Denies: flank pain Musc: Denies: back pain, extremity pain or extremity swelling Neuro: Denies: headache(s), difficulty walking or confusion Medications/Allergies Home Medications Medication Instructions Recorded Confirmed Last Taken Type albuterol sulfate 90 mcg/actuation 2 puff inhalation Q6H PRN 06/29/20 11/19/22 08/20/22 History aerosol inhaler Shortness Of Breath aspirin 81 mg chewable tablet 81 mg PO DAILY 06/29/20 11/19/22 10/15/22 History atorvastatin 20 mg tablet 20 mg PO BEDTIME 06/29/20 11/19/22 10/15/22 History fluticasone propionate 50 1 spray intranasal DAILY 06/29/20 11/19/22 10/15/22 History mcg/actuation nasal spray,suspension insulin lispro 100 unit/mL See Rx Instructions .Route .COMPLEX 06/29/20 11/19/22 08/20/22 History subcutaneous pen (Humalog KwikPen (U-100) Insulin) latanoprost 0.005 % eye drops 1 drp ophthalmic (eye) BEDTIME 06/29/20 11/19/22 10/15/22 History gqfphp-fbmgkwww-idiwvmg 2 cap PO TID 06/29/20 11/19/22 10/15/22 History 24,000-76,000-120,000 unit capsule,delayed rel (Creon) mupirocin 2 % topical ointment 1 applic topical DAILY 06/29/20 11/19/22 Unknown History pantoprazole 40 mg tablet,delayed 40 mg PO DAILY 06/29/20 11/19/22 10/15/22 History release umeclidinium 62.5 mcg-vilanterol 2 ea inhalation DAILY 06/29/20 11/19/22 08/20/22 History 25 mcg/actuation powdr for inhalation (Anoro Ellipta) dorzolamide 2 % eye drops 1 drp ophthalmic (eye) BID 07/27/20 11/19/22 10/15/22 History ondansetron HCl 4 mg tablet 4 mg PO Q6H PRN nausea and vomiting 07/27/20 11/19/22 08/20/22 History gabapentin 100 mg capsule 100 mg PO TID 11/16/20 11/19/22 10/15/22 History clonidine HCl 0.1 mg tablet 0.2 mg PO BID 11/15/21 11/19/22 10/15/22 History biotin 5,000 mcg sublingual tablet 5,000 mcg sublingual BID 08/20/22 11/19/22 10/15/22 History cholecalciferol (vitamin D3) 25 25 mcg PO DAILY 08/20/22 11/19/22 10/15/22 History mcg (1,000 unit) capsule (Vitamin D3) ferrous sulfate 325 mg (65 mg 325 mg PO TID 08/20/22 11/19/22 10/15/22 History iron) tablet (iron) insulin glargine U-300 conc 300 130 unit SUBCUT DAILY 08/20/22 11/19/22 10/15/22 History unit/mL (1.5 mL) subcutaneous pen (Toujeo SoloStar U-300 Insulin) sodslfam-ntx-hwxax ac 400 1 tab PO DAILY 08/20/22 11/19/22 10/15/22 History mcg-calcium carb 500 mg-vit K1 20 mcg tablet (Women's 50 Plus Multivitamin) clotrimazole 1 % topical cream 1 applic topical BID 4 weeks #30 08/28/22 11/19/22 10/15/22 Rx grams furosemide 40 mg tablet 60 mg PO DAILY@0800 #90 tabs 09/11/22 11/19/22 10/15/22 Rx hydralazine 25 mg tablet 25 mg PO TID #90 tabs 09/11/22 11/19/22 10/15/22 Rx adalimumab 40 mg/0.4 mL 40 mg SUBCUT Q7D 10/16/22 11/19/22 Unknown History subcutaneous pen kit (Humira(CF) Pen) albuterol sulfate 2.5 mg/3 mL 2.5 mg inhalation QID PRN 10/16/22 11/19/22 Unknown History (0.083 %) solution for nebulization Shortness Of Breath ipratropium bromide 0.02 % 2.5 ml inhalation QID PRN 10/16/22 11/19/22 Unknown History solution for inhalation Shortness Of Breath diltiazem HCl 120 mg 120 mg PO DAILY #30 caps 10/27/22 11/19/22 Unknown Rx capsule,extended release 24 hr metolazone 5 mg tablet 5 mg PO DAILY 30 days #30 tabs 10/27/22 11/19/22 Unknown Rx amiodarone 200 mg tablet (Pacerone) 200 mg PO DAILY #90 tabs 11/11/22 11/19/22 Unknown Rx scopolamine base 1 mg over 3 days 1 patch transdermal Q3D PRN Nausea 11/11/22 11/19/22 Unknown History transdermal patch And Vomiting Allergies Allergy/AdvReac Type Severity Reaction Status Date / Time doxycycline Allergy Unknown Verified 09/11/22 15:59 Sulfa (Sulfonamide Allergy ALGY-Rash Verified 09/11/22 15:59 Antibiotics) Current Medications Generic Name Dose Route Start Last Admin Trade Name Freq PRN Reason Stop Dose Admin Albuterol/Ipratropium 3 ml 11/19/22 08:00 11/19/22 07:55 Ipratropium-Albuterol 3 Ml Neb INHALATION 3 ml Q6H.RESP DELVIN Administration Atropine Sulfate 0.4 mg 11/19/22 06:28 11/19/22 07:27 Atropine 0.4 Mg/Ml Sdv 1ml IVP 0.4 mg PRN PRN Administration heart rate < 35 Dopamine HCl/Dextrose 400 mg in 250 mls @ 23.014 mls/hr 11/19/22 09:15 11/19/22 09:21 Intropin Drip IV 5 mcg/kg/min CONT DELVIN 23.01 mls/hr Administration Protocol 5 MCG/KG/MIN Insulin Human Lispro 0 unit 11/19/22 08:00 11/19/22 12:16 Insulin Lispro 100 Unit/1 Ml SUBCUT 6 unit WM&BEDTIME DELVIN Administration Protocol Ondansetron HCl 4 mg 11/19/22 12:20 11/19/22 12:26 Ondansetron 2 Mg/Ml Sdv 2 Ml IVP 4 mg Q6H PRN Administration NAUSEA AND VOMITING PFSH Acute PFSH: Medical History Acute hypokalemia MATTIE (acute kidney injury) Anemia COPD (chronic obstructive pulmonary disease) Decubitus ulcer Diabetes Heart failure Myelodysplasia (myelodysplastic syndrome) PAD (peripheral artery disease) Pneumonia Pneumonia due to COVID-19 virus Pulmonary HTN Sleep apnea Surgical History Hx of appendectomy Hx of cataract extraction Hx of section Hx of cholecystectomy Hx of hysterectomy Family History Mother CAD (coronary artery disease) Diabetes Daughter Diabetes Lung disease Suicide Son Diabetes Lung disease Denies family history of Clotting disorder Dementia Chronic kidney disease (CKD) Anesthesia complication Bleeding disorder Cancer Stroke Social History Smoking and tobacco status: former smoker (smoked x 8 years) Alcohol intake: never Substance/Drug Use: never Lives independently: Yes Household members: other Details: Son Vitals/I&O/Wt Last Vital Signs Temp 93.4 F L 11/19/22 09:30 Pulse 71 11/19/22 12:00 Resp 22 H 11/19/22 12:00 BP 148/47 11/19/22 12:00 Pulse Ox 94 11/19/22 12:00 O2 Del Method BiPAP 11/19/22 12:00 O2 Flow Rate 6 11/19/22 03:44 FiO2 35 11/19/22 12:00 11/18/22 11/19/22 11/19/22 22:59 06:59 14:59 Intake Total 572 / 572 150 / 150 Output Total 400 / 400 Balance 172 / 172 150 / 150 Weight last 48 hrs Weight 270 lb 9.6 oz Weight 270 lb 9.6 oz Weight 325 lb Physical Exam Narrative: GENERAL: On BiPAP, confused NECK: No jugular vein distension. [] HEENT: No cyanosis. No icterus. No pallor. [] HEART: Regular S1 and S2. No murmur, rub or gallop. [] LUNGS: Clear to auscultate bilaterally. [] CENTRAL NERVOUS SYSTEM: Grossly nonfocal. [] EXTREMITIES: Lower extremities with 1+ edema bilaterally. Pulses palpable in the lower extremities, both dorsalis pedis and posterior tibial. [] Urinary Catheter Management: Bocanegra: Cath Placed During This Visit: yes Reason for Continuing Indwelling Catheter: Accurate Measurement of Urinary Output in Critically Ill Patients Urinary Catheter Date of Insertion: 11/19/22 Urinary Catheter Time of Insertion: 04:25 Data 11/20/22 03:07 11/20/22 03:07 A&P Assessment and plan (1) MATTIE (acute kidney injury): (2) CHF (congestive heart failure): (3) Bradycardia: (4) Acute hyperkalemia: (5) Acute hyponatremia: (6) Sleep apnea: (7) Mitral stenosis: (8) Atrial fibrillation: Plan Continue dobutamine drip. Heart rates have improved since starting it. We will hold off on pacemaker for now however if persistent bradycardia or hemodynamic instability, we can consider putting temporary pacemaker. Nephrology on board. Patient's bradycardia is likely secondary to electrolyte imbalance. Monitor renal function. Thank you for involving us with care of this patient. We will continue to follow. Please call with question. Consult Attestations Medical Necessity Statement: Care expected to cross 2 midnights. Coding [facility] MATTIE (acute kidney injury) N17.9 CHF (congestive heart failure) I50.9 Bradycardia R00.1 Acute hyperkalemia E87.5 Acute hyponatremia E87.1 Sleep apnea G47.30 Mitral stenosis I05.0 Atrial fibrillation I48.91
[2022-11-19 12:59] LABS: ABG PCO2 69.3 mmHg (35-45); ABG PH Result 7.25 (7.35-7.45); Arterial Blood Gas Hematocrit 31.1 % (37-47); Base Excess ABG 1.7 mmol/L (-2.0-2.0); Blood Gas Allen Test Pos; Blood Gas Operator Identificat MONRO; Blood Gas Sample Site Brachial, right; Blood Gas Sample Type Arterial; HCO3 ABG 30.1 mmol/L (22-26); Oxygen Device BIPAP; PO2 ABG 71.6 mmHg (80.0-100.0)
[2022-11-19 16:13] LABS: ABG PH Result 7.29 (7.35-7.45); Alveolar-Arterial Oxygen Gradi 11.5 mmHg (5-10); Arterial Blood Gas Hematocrit 31.3 % (37-47); Base Excess ABG 2.8 mmol/L (-2.0-2.0); Blood Gas Operator Identificat MONRO; Blood Gas Sample Site Brachial, right; Blood Gas Sample Type Arterial; Blood Gas Tidal Volume 0.55; HCO3 ABG 30.4 mmol/L (22-26); HGB O2 Sat 95.5 % (95-100); Ionized Calcium Level - ABG 1.3 mmol/L (1.1-1.4); Methemoglobin 0.2 % (0.4-1.5); Oxygen Device BIPAP; Oxygen Saturation ABG 97.6; PO2 ABG 84.3 mmHg (80.0-100.0); Potassium Level - ABG 5.6 mmol/L (3.5-5.0); Total Hemoglobin 10.2 g/dL (12-16)
[2022-11-19 18:19] LABS: Glucose Point of Care 106 mg/dL (70-110)
[2022-11-19] MEDS: DOPamine drip 400 MG/250 ML PREMIX 34.52 MG IV (19:00)
--- NOTE | 2022-11-19 19:59 | PM.MISC ---
Miscellaneous Note Purpose of Documentation: Recieved call from RN that patient has had 1 episode of vomiting following which she is more lethargic, her respiratory status apepared to be worse. Currenty 02 sat at 95%. BP 142/53, HR 57/min, mentation appears unchanged over last night. She is able to tell me her name, and that she is in a hospital. Her responses are delayed. Currently off bipap given vomtiing. She is grossly edematous. Chest has B/L crackles. review of medication records shows last lasix received at 4 am 40 mg iv. Urine output 300 cc. Lasix 80 mg iv ordered for now. Monitor urine output after lasix. Added reglan and scopolamine patch for nausea management. High risk to progress to intubation and mechanical ventilation, poor prognosis and anticipated prolonged intubation if gets to that point. Updates discussed with son Neel and daughter Martha who is DPOA.
--- NOTE | 2022-11-19 20:00 | PC.NURSE ---
Physician Notification: Vomiting x2. Called Dr. Hackett to update on lethargy, severe nausea/vomiting, and inability to safely wear the BIPAP mask @this time. Pt on oxymask @7L. Dr. Hackett came to the unit to assess the pt. New orders received include Lasix 80mg IVP ONCE, Scopolamine Patch Q3D, and Reglan 10mg IVP Q8H. See MAR for medication administration. Pts nausea/vomiting resolved around 2200 and pt was placed back on the BIPAP mask. Educated pt to report nausea and to take the BIPAP mask off if she felt she might vomit.
[2022-11-19] MEDS: FUROsemide 10 mg/mL SDV 10mL 80 MG IVP (20:08)
[2022-11-19] MEDS: metoclopramide 5 mg/mL SDV 2 mL 10 MG IVP (20:11)
[2022-11-19] MEDS: scopolamine 1.5 Patch 1 PATCH TRANSDERMA (20:15)
[2022-11-19 20:43] LABS: Glucose Point of Care 118 mg/dL (70-110)
[2022-11-19 21:50] LABS: Anion Gap 15.8 (5-19); Blood Urea Nitrogen 77 mg/dL (8-23); Calcium 9.8 mg/dL (8.5-10.5); Carbon Dioxide 29 mmol/L (22-29); Chloride 83 mmol/L (98-107); Glucose 87 mg/dL (65-115); Osmolality Calculated 276 mOsm/kg (285-295); Potassium 5.8 mmol/L (3.5-5.1); Sodium 122 mmol/L (136-145)
[2022-11-20] VITALS (101 sets, daily range): BP systolic 72–163; BP diastolic 26–92; PULSE 51–74; RESP 11–29; TEMP 36.6–37.3; O2SAT 94–100
[2022-11-20] MEDS: DOPamine drip 400 MG/250 ML PREMIX 34.52 MG IV ×2 (02:25→10:42)
[2022-11-20] MEDS: ipratropium-albuterol 3 mL Neb INHALATION ×4 (03:19→20:34)
[2022-11-20 03:28] LABS: Hematocrit 31.1 % (37.0-47.0); Hemoglobin 9.8 g/dL (11.5-15.3); Lymphocytes # 0.4 10^3/uL (0.8-4.8); Lymphocytes % 6.2 %; Mean Corpuscular HGB Conc 31.5 g/dL (30.0-36.0); Mean Corpuscular Hemoglobin 30.4 pg (28.0-34.0); Mean Corpuscular Volume 96.6 fl (81-99); Mean Platelet Volume 9.4 fL (7.4-10.4); Monocytes # 0.3 10^3/uL (0.2-0.9); Monocytes % 3.5 %; Neutrophils # 6.36 10^3/uL (1.8-7.7); Neutrophils % 89.9 %; Nucleated Red Blood Cells % 0 %; Platelet Count 216 10^3/cmm (130-400); Red Blood Count 3.22 10^6/uL (4.1-5.3); White Blood Count 7.1 10^3/uL (4.0-10.0)
[2022-11-20 03:55] LABS: Anion Gap 15.6 (5-19); Blood Urea Nitrogen 65 mg/dL (8-23); Calcium 10.3 mg/dL (8.5-10.5); Carbon Dioxide 29 mmol/L (22-29); Chloride 81 mmol/L (98-107); Glucose 58 mg/dL (65-115); Osmolality Calculated 266 mOsm/kg (285-295); Potassium 5.6 mmol/L (3.5-5.1); Sodium 120 mmol/L (136-145)
[2022-11-20 03:56] LABS: Troponin T (5th) Once 22 ng/L (0-10)
[2022-11-20 04:33] LABS: Glucose Point of Care 70 mg/dL (70-110)
[2022-11-20 06:57] LABS: Glucose Point of Care 101 mg/dL (70-110)
[2022-11-20 07:01] LABS: Glucose Point of Care 118 mg/dL (70-110)
[2022-11-20 09:29] LABS: ABG PCO2 57.1 mmHg (35-45); ABG PH Result 7.35 (7.35-7.45); Arterial Blood Gas Hematocrit 30.8 % (37-47); Blood Gas Allen Test Pos; Blood Gas Operator Identificat CAK; Blood Gas Sample Site Radial, left; Blood Gas Sample Type Arterial; Carboxyhemoglobin 2.1 %THgb (0.4-20.1); HCO3 ABG 31.6 mmol/L (22-26); HGB O2 Sat 96.3 % (95-100); Ionized Calcium Level - ABG 1.4 mmol/L (1.1-1.4); Methemoglobin 0.4 % (0.4-1.5); Oxygen Device BIPAP; Oxygen Saturation ABG 98.8; PO2 ABG 87.2 mmHg (80.0-100.0); Potassium Level - ABG 4.8 mmol/L (3.5-5.0)
--- NOTE | 2022-11-20 09:29 | P.PN_ITS ---
Subjective Subjective: on BIPAP UOP 1200 cc Medications: Reviewed: Yes Vitals/I&O/Wt Last Vital Signs Temp 97.9 F 11/20/22 07:07 Pulse 61 11/20/22 08:31 Resp 22 H 11/20/22 08:31 BP 133/44 11/20/22 06:45 Pulse Ox 99 11/20/22 08:31 O2 Del Method BiPAP 11/20/22 08:31 O2 Flow Rate 6 11/20/22 03:19 FiO2 35 11/20/22 08:31 11/19/22 11/20/22 11/20/22 22:59 06:59 14:59 Intake Total 350.000 / 500.000 300 / 800.000 Output Total 300 / 300 900 / 1200 Balance 50.000 / 200.000 -600 / -400.000 Weight last 48 hrs Weight 122.878 kg Weight 122.742 kg Weight 122.742 kg Weight 147.418 kg Physical Exam Narrative: Patient lethargic, on BiPAP, bradycardic, regular rate and rhythm per report + pedal edema Urinary Catheter Management: Bocanegra: Cath Placed During This Visit: yes Reason for Continuing Indwelling Catheter: Accurate Measurement of Urinary Outpu t in Critically Ill Patients Urinary Catheter Date of Insertion: 11/19/22 Urinary Catheter Time of Insertion: 04:25 Data 11/20/22 03:07 11/20/22 03:07 A&P Assessment and plan (1) Acute hyponatremia: (2) Acute hyperkalemia: Plan 1. Acute on chronic kidney disease: Creatinine baseline in the mid 1 range, now presented with a MATTIE of creatinine 2.7 today. patient non oliguric -Agree with holding metolazone. -Continue as needed doses of IV Lasix -If no improvement may require CRRT/dialysis 2. Hyperkalemia: Status post med management, await repeat BMP 3. Hyponatremia: Sodium 116 on presentation, urine sodium 10 and pending urine osmolality. Na 120 today , If repeat sodium less than 120 will restart 3% saline. 4. Acute on chronic respiratory failure: Multifactorial, hypercapnea , volume overload, COPD 5. Bradycardia, holding amiodarone and Cardizem, further management per primary team and cardiology Patient evaluated using audiovisual cart. Time spent 45 minutes Attestations Medical Necessity Statement*: per medicine Coding Level of Care Code Acute Code for Chg Fwd Diagnoses Acute hyponatremia E87.1 Acute hyperkalemia E87.5
[2022-11-20] MEDS: FUROsemide 10 mg/mL SDV 4mL 40 MG IVP (10:40)
[2022-11-20 11:04] LABS: Glucose Point of Care 76 mg/dL (70-110)
--- NOTE | 2022-11-20 11:34 | CT_ITS ---
WS: [id number] CT CHEST, ABDOMEN AND PELVIS NONCONTRAST. HISTORY: abdominal Distention TECHNIQUE: Contiguous 5 mm axial imaging performed through the chest, abdomen and pelvis without IV c ontrast, oral contrast has not been provided. Coronal and sagittal reformats chest. Coronal and sagit rosie reformats through the abdomen and pelvis. All CT scans at [facility] use at least one of these dose optimization techniques: automated exposure control; mA and/or kV adjustment per patient s ize (includes targeted exams where dose is matched to clinical indication); or iterative reconstructi on. CONTRAST: None DLP: 1327.76 mGy.cm COMPARISON: 10/26/[address]: Small bilateral pleural effusions, RIGHT greater than LEFT. Mild hazy attenuation throughou t both lungs from pulmonary edema. Mild compressive atelectasis at the lung bases. Moderate calcifica tion throughout the aorta. No aneurysm. Moderate cardiomegaly. Heavy calcification along the mitral a nnular valve plane. No pericardial effusion. Mild soft tissue anasarca. Abdomen CT: Mild hepatic enlargement. Normal spleen. Pancreatic atrophy. No adrenal mass. Surgical re moval of the gallbladder. Mild perinephric stranding around each kidney. No renal obstruction. Normal aorta. Stomach is not distended. No small bowel obstruction. There is a small amount ascites now present wit hin the abdomen and the pelvis. There is a single focus of free air in the pelvis which is not defini tely within the lumen. New since the prior study. There is an additional tiny focus of air in the RIG HT upper abdomen, image 55 of series 11 may be a small diverticulum or focus of free air. Abnormal lo op of GI tract in the RIGHT lower quadrant. May be ischemic. Prior appendectomy. Pelvic CT: Small amount of free fluid in the pelvis and soft tissue anasarca. Prior hysterectomy. CT/[place] [id number] IMPRESSION: 1. Small bilateral pleural effusions with compressive atelectasis at the lung bases. 2. Mild pulmonary edema. No pneumonia. 3. There are 2 foci of air within the peritoneal cavity which cannot definitel y be placed within the lumen of the GI tract. Suspicious for free air. There is also a single abnormal loop of GI tract in the RIGHT lower quadrant which may be ischemic. 4. New small amount of ascites since the prior study. 5. Prior cholecystectomy, appendectomy and hysterectomy. Notified Milla Molina MD at 11/20/2022 2:15 PM. Message left on answering se walton.
[2022-11-20] MEDS: metoclopramide 5 mg/mL SDV 2 mL 10 MG IVP (12:47)
--- NOTE | 2022-11-20 14:25 | P.PN_ITS ---
Subjective Subjective: No leukocytosis, afebrile Requested CT chest abdomen pelvis Patient was complaining abdominal pain Still fluid overloaded No plan for dialysis as of yet 900 mL overnight Adequate urine output Potassium improved as well Hypercapnia improving as well patient was taken off BiPAP because of emesis ov ernight Patient remains full code I have requested lactic acid, will consult general surgery after reviewing CT scan of abdomen pelvis Patient is not acidotic Sodium 120 Creatinine peaked 2.7 Vitals/I&O/Wt Last Vital Signs Temp 99.1 F 11/20/22 11:15 Pulse 69 11/20/22 14:09 Resp 16 11/20/22 14:05 BP 123/92 11/20/22 11:15 Pulse Ox 96 11/20/22 14:09 O2 Del Method BiPAP 11/20/22 14:05 O2 Flow Rate 6 11/20/22 03:19 FiO2 35 11/20/22 14:09 11/19/22 11/20/22 11/20/22 22:59 06:59 14:59 Intake Total 350.000 / 500.000 300 / 800.000 250 / 250 Output Total 300 / 300 900 / 1200 800 / 800 Balance 50.000 / 200.000 -600 / -400.000 -550 / -550 Weight last 48 hrs Weight 122.878 kg Weight 122.742 kg Weight 122.742 kg Weight 147.418 kg Physical Exam Narrative: Patient is awake and alert Fatigue and lethargic Abdomen slightly tender Bowel sound present Fluid overload Anasarca GCS 15 Currently on nasal cannula Still requiring dopamine Bocanegra catheter in place Clinical signs of fluid overload No active chest pain Urinary Catheter Management: Bocanegra: Cath Placed During This Visit: yes Reason for Continuing Indwelling Catheter: Accurate Measurement of Urinary Output in Critically Ill Patients Urinary Catheter Date of Insertion: 11/19/22 Urinary Catheter Time of Insertion: 04:25 Data 11/20/22 03:07 11/20/22 03:07 A&P Assessment and plan (1) MATTIE (acute kidney injury): (2) CHF (congestive heart failure): (3) Bradycardia: (4) Acute hyperkalemia: (5) Acute hyponatremia: (6) Acute upper GI bleed: Plan Melanotic stools: Resolved Hemoglobin stable 1 unit PRBC was given at the time of admission Concern for ischemic colitis CT abdomen pelvis requested today We will consult general surgery Check lactic acid Blood pressure is stable No leukocytosis or fever Continue antibiotic Bradycardia related to hyperkalemia Wean off dopamine Patient is off pressors Appreciate cardio recommendations Hyperkalemia improved Patient is nonoliguric Not acidotic Still volume overloaded She might need temporary dialysis versus CRRT we will touch with nephrology Give her Lasix for anasarca Hyponatremia: Sodium slightly better after 3% hypertonic saline Appreciate nephro recommendations Acute on chronic hypoxic hypercarbic restaurant failure: Resolved on BiPAP Currently she is on room air ATN related to hypotension Nonoliguric Severe pulmonary hypertension Multiple comorbid conditions Mitral valve stenosis DVT prophylaxis: With SCDs because of melanotic stools Protonix 40 mg IV twice daily Patient is full code We will update her family Attestations Medical Necessity Statement*: Continue ICU management Diagnoses MATTIE (acute kidney injury) N17.9 CHF (congestive heart failure) I50.9 Bradycardia R00.1 Acute hyperkalemia E87.5 Acute hyponatremia E87.1 Acute upper GI bleed K92.2
[2022-11-20 15:06] LABS: Anion Gap 13.9 (5-19); Blood Urea Nitrogen 72 mg/dL (8-23); Carbon Dioxide 31 mmol/L (22-29); Chloride 82 mmol/L (98-107); Glucose 92 mg/dL (65-115); Lactate (Lactic Acid level) 0.5 mmol/L (0.5-2.2); Osmolality Calculated 275 mOsm/kg (285-295); Potassium 4.9 mmol/L (3.5-5.1); Sodium 122 mmol/L (136-145)
[2022-11-20 15:09] LABS: Glucose Point of Care 58 mg/dL (70-110)
[2022-11-20 16:03] LABS: Glucose Point of Care 120 mg/dL (70-110)
--- NOTE | 2022-11-20 16:03 | PC.NURSE ---
Patient's blood sugar was 58, nurse adminstered an amp of d50 per protocol, rechecked sugar in 15 minute and it was 120. Nurse alerted Dr Molina and recieved orders for d5@30ml/hr,
[2022-11-20] MEDS: cefepime 2,000 MG in sodium chloride 0.9% (plus) 50 ML 100 MG IV (16:28)
[2022-11-20] MEDS: dextrose 5% 1,000 ML 30 ML IV (16:31)
[2022-11-20] MEDS: pantoprazole 40 mg SDV IVP (17:40)
[2022-11-20] MEDS: sucralfate 1 gm/10 mL Oral Liq UDC PO (17:43)
--- NOTE | 2022-11-20 18:27 | PC.NURSE ---
Shift SUmmary: Uneventful shift. Patient rested in bed throughout the day. Very lethargic, but able to answer orientation questions. Has had no appetite and refused all meals. Became hypoglycemic around dinner time and required d50 and started on a D5 drip.Total urine output 1700
--- NOTE | 2022-11-20 18:27 | PM.PN ---
Subjective Subjective: Patient's heart rate has improved. Dopamine has been weaned off. Vitals/I&O/Wt Last Vital Signs Temp 98.5 F 11/20/22 17:00 Pulse 58 L 11/20/22 18:15 Resp 18 11/20/22 18:15 BP 136/26 11/20/22 18:15 Pulse Ox 96 11/20/22 18:15 O2 Del Method BiPAP 11/20/22 18:00 O2 Flow Rate 6 11/20/22 03:19 FiO2 35 11/20/22 18:00 11/20/22 11/20/22 11/20/22 06:59 14:59 22:59 Intake Total 300 / 800.000 250 / 250 Output Total 900 / 1200 1600 / 1600 100 / 1700 Balance -600 / -400.000 -1350 / -1350 -100 / -1450 Weight last 48 hrs Weight 270 lb 14.4 oz Weight 270 lb 9.6 oz Weight 270 lb 9.6 oz Weight 325 lb Physical Exam Narrative: GENERAL: On BiPAP, confused NECK: No jugular vein distension. [] HEENT: No cyanosis. No icterus. No pallor. [] HEART: Regular S1 and S2. No murmur, rub or gallop. [] LUNGS: Clear to auscultate bilaterally. [] CENTRAL NERVOUS SYSTEM: Grossly nonfocal. [] EXTREMITIES: Lower extremities with 1+ edema bilaterally. Pulses palpable in the lower extremities, both dorsalis pedis and posterior tibial. [] Urinary Catheter Management: Bocanegra: Cath Placed During This Visit: yes Reason for Continuing Indwelling Catheter: Accurate Measurement of Urinary Output in Critically Ill Patients Urinary Catheter Date of Insertion: 11/19/22 Urinary Catheter Time of Insertion: 04:25 Data 11/21/22 05:34 11/21/22 05:34 A&P Assessment and plan (1) MATTIE (acute kidney injury): (2) CHF (congestive heart failure): (3) Bradycardia: (4) Acute hyperkalemia: (5) Acute hyponatremia: (6) Sleep apnea: (7) Mitral stenosis: (8) Atrial fibrillation: Plan Dobutamine has been weaned off. Bradycardia likely secondary to electrolyte abnormalities. Continue telemetry monitoring. Urine output is good. Monitor renal function. Nephrology on board. Thank you for involving us with care of this patient. We will continue to follow. Please call with question. Attestations Medical Necessity Statement*: Care expected to cross 2 midnights. Coding Level of Care Code Acute Code for Chg Fwd Diagnoses MATTIE (acute kidney injury) N17.9 CHF (congestive heart failure) I50.9 Bradycardia R00.1 Acute hyperkalemia E87.5 Acute hyponatremia E87.1 Sleep apnea G47.30 Mitral stenosis I05.0 Atrial fibrillation I48.91
--- NOTE | 2022-11-20 19:02 | P.CONIM_ITS ---
Providers/Reason For Consult Consulting Physician/Specialty*: Dr. Asher Marshall DO Reason for Consult*: Abdominal pain, melena Attending Physician: Milla Molina MD Primary Care Provider: Deep Angeles DO History of Present Illness History of Present Illness Beth Winkler is a 82 year old female who is currently in the hospital with congestive heart failure and pneumonia. She has some right upper quadrant abdominal pain and abdominal distention. She reports to me that abdominal pain is not her reason for coming to the hospital, it was difficulty breathing. She has had some melanotic stools recently, but has not had any bowel movements for the last 1 to 2 days, indicating that she is not actively bleeding. She had a CT of the abdomen pelvis which was read as abnormal loop of bowel in the right lower quadrant which is possibly ischemic. Her white blood cell count is within normal limits and so is her lactic acid. Review of Systems General: Reports: 10 or more systems reviewed and unremarkable except in HPI and below Medications/Allergies Home Medications Medication Instructions Recorded Confirmed Last Taken Type albuterol sulfate 90 mcg/actuation 2 puff inhalation Q6H PRN 06/29/20 11/19/22 08/20/22 History aerosol inhaler Shortness Of Breath aspirin 81 mg chewable tablet 81 mg PO DAILY 06/29/20 11/19/22 10/15/22 History atorvastatin 20 mg tablet 20 mg PO BEDTIME 06/29/20 11/19/22 10/15/22 History fluticasone propionate 50 1 spray intranasal DAILY 06/29/20 11/19/22 10/15/22 History mcg/actuation nasal spray,suspension insulin lispro 100 unit/mL See Rx Instructions .Route .COMPLEX 06/29/20 11/19/22 08/20/22 History subcutaneous pen (Humalog KwikPen (U-100) Insulin) latanoprost 0.005 % eye drops 1 drp ophthalmic (eye) BEDTIME 06/29/20 11/19/22 10/15/22 History wenoud-pngvegav-uffigky 2 cap PO TID 06/29/20 11/19/22 10/15/22 History 24,000-76,000-120,000 unit capsule,delayed rel (Creon) mupirocin 2 % topical ointment 1 applic topical DAILY 06/29/20 11/19/22 Unknown History pantoprazole 40 mg tablet,delayed 40 mg PO DAILY 06/29/20 11/19/22 10/15/22 History release umeclidinium 62.5 mcg-vilanterol 2 ea inhalation DAILY 06/29/20 11/19/22 08/20/22 History 25 mcg/actuation powdr for inhalation (Anoro Ellipta) dorzolamide 2 % eye drops 1 drp ophthalmic (eye) BID 07/27/20 11/19/22 10/15/22 History ondansetron HCl 4 mg tablet 4 mg PO Q6H PRN nausea and vomiting 07/27/20 11/19/22 08/20/22 History gabapentin 100 mg capsule 100 mg PO TID 11/16/20 11/19/22 10/15/22 History clonidine HCl 0.1 mg tablet 0.2 mg PO BID 11/15/21 11/19/22 10/15/22 History biotin 5,000 mcg sublingual tablet 5,000 mcg sublingual BID 08/20/22 11/19/22 10/15/22 History cholecalciferol (vitamin D3) 25 25 mcg PO DAILY 08/20/22 11/19/22 10/15/22 History mcg (1,000 unit) capsule (Vitamin D3) ferrous sulfate 325 mg (65 mg 325 mg PO TID 08/20/22 11/19/22 10/15/22 History iron) tablet (iron) insulin glargine U-300 conc 300 130 unit SUBCUT DAILY 08/20/22 11/19/22 10/15/22 History unit/mL (1.5 mL) subcutaneous pen (Toujeo SoloStar U-300 Insulin) acticzib-eqy-dxggu ac 400 1 tab PO DAILY 08/20/22 11/19/22 10/15/22 History mcg-calcium carb 500 mg-vit K1 20 mcg tablet (Women's 50 Plus Multivitamin) clotrimazole 1 % topical cream 1 applic topical BID 4 weeks #30 08/28/22 11/19/22 10/15/22 Rx grams furosemide 40 mg tablet 60 mg PO DAILY@0800 #90 tabs 09/11/22 11/19/22 10/15/22 Rx hydralazine 25 mg tablet 25 mg PO TID #90 tabs 09/11/22 11/19/22 10/15/22 Rx adalimumab 40 mg/0.4 mL 40 mg SUBCUT Q7D 10/16/22 11/19/22 Unknown History subcutaneous pen kit (Humira(CF) Pen) albuterol sulfate 2.5 mg/3 mL 2.5 mg inhalation QID PRN 10/16/22 11/19/22 Unknown History (0.083 %) solution for nebulization Shortness Of Breath ipratropium bromide 0.02 % 2.5 ml inhalation QID PRN 10/16/22 11/19/22 Unknown History solution for inhalation Shortness Of Breath diltiazem HCl 120 mg 120 mg PO DAILY #30 caps 10/27/22 11/19/22 Unknown Rx capsule,extended release 24 hr metolazone 5 mg tablet 5 mg PO DAILY 30 days #30 tabs 10/27/22 11/19/22 Unknown Rx amiodarone 200 mg tablet (Pacerone) 200 mg PO DAILY #90 tabs 11/11/22 11/19/22 Unknown Rx scopolamine base 1 mg over 3 days 1 patch transdermal Q3D PRN Nausea 11/11/22 11/19/22 Unknown History transdermal patch And Vomiting Allergies Allergy/AdvReac Type Severity Reaction Status Date / Time doxycycline Allergy Unknown Verified 09/11/22 15:59 Sulfa (Sulfonamide Allergy ALGY-Rash Verified 09/11/22 15:59 Antibiotics) Current Medications Generic Name Dose Route Start Last Admin Trade Name Freq PRN Reason Stop Dose Admin Albuterol/Ipratropium 3 ml 11/19/22 08:00 11/20/22 14:06 Ipratropium-Albuterol 3 Ml Neb INHALATION 3 ml Q6H.RESP DELVIN Administration Atropine Sulfate 0.4 mg 11/19/22 06:28 11/19/22 07:27 Atropine 0.4 Mg/Ml Sdv 1ml IVP 0.4 mg PRN PRN Administration heart rate < 35 Furosemide 40 mg 11/20/22 09:00 11/20/22 10:40 Furosemide 10 Mg/Ml Sdv 4ml IVP 40 mg Q24H DELVIN Administration Dopamine HCl/Dextrose 400 mg in 250 mls @ 23.014 mls/hr 11/19/22 09:15 11/20/22 10:42 Intropin Drip IV 7.5 mcg/kg/min CONT DELVIN 34.52 mls/hr Administration Protocol 5 MCG/KG/MIN Cefepime HCl 2,000 mg/ Sodium 50 mls @ 100 mls/hr 11/20/22 16:30 11/20/22 16:28 Chloride IV 100 mls/hr Q24H DELVIN Administration Protocol Dextrose 1,000 mls @ 30 mls/hr 11/20/22 16:15 11/20/22 16:31 D5w IV 30 mls/hr .Q24H DELVIN Administration Insulin Human Lispro 0 unit 11/19/22 08:00 11/20/22 17:20 Insulin Lispro 100 Unit/1 Ml SUBCUT Not Given WM&BEDTIME DELVIN Protocol Insulin Human Lispro 0 unit 11/20/22 18:00 11/20/22 17:21 Insulin Lispro 100 Unit/1 Ml SUBCUT Not Given TIDWM [facility] Protocol Metoclopramide HCl 10 mg 11/19/22 19:48 11/20/22 12:47 Metoclopramide 5 Mg/Ml Sdv 2 Ml IVP 10 mg Q8H PRN Administration NAUSEA AND VOMITING Ondansetron HCl 4 mg 11/19/22 12:20 11/19/22 18:17 Ondansetron 2 Mg/Ml Sdv 2 Ml IVP 4 mg Q6H PRN Administration NAUSEA AND VOMITING Pantoprazole Sodium 40 mg 11/20/22 17:00 11/20/22 17:40 Pantoprazole 40 Mg Sdv IVP 40 mg Q12H DELVIN Administration Scopolamine 1 patch 11/19/22 20:00 11/19/22 20:15 Scopolamine 1.5 Patch TRANSDERMA 1 patch Q3D DELVIN Administration Sucralfate 1 gm 11/20/22 18:00 11/20/22 17:43 Sucralfate 1 Gm/10 Ml Oral Liq Udc PO 1 gm BID DELVIN Administration PFSH Acute PFSH: Medical History Acute hypokalemia MATTIE (acute kidney injury) Anemia Atrial fibrillation COPD (chronic obstructive pulmonary disease) Decubitus ulcer Diabetes Heart failure Myelodysplasia (myelodysplastic syndrome) PAD (peripheral artery disease) Pneumonia Pneumonia due to COVID-19 virus Pulmonary HTN Sleep apnea Surgical History Hx of appendectomy Hx of cataract extraction Hx of section Hx of cholecystectomy Hx of hysterectomy Family History Mother CAD (coronary artery disease) Diabetes Daughter Diabetes Lung disease Suicide Son Diabetes Lung disease Denies family history of Clotting disorder Dementia Chronic kidney disease (CKD) Anesthesia complication Bleeding disorder Cancer Stroke Social History Smoking and tobacco status: former smoker (smoked x 8 years) Alcohol intake: never Substance/Drug Use: never Lives independently: Yes Household members: other Details: Son Vitals/I&O/Wt Last Vital Signs Temp 98.5 F 11/20/22 17:00 Pulse 58 L 11/20/22 18:15 Resp 18 11/20/22 18:15 BP 136/26 11/20/22 18:15 Pulse Ox 96 11/20/22 18:15 O2 Del Method BiPAP 11/20/22 18:00 O2 Flow Rate 6 11/20/22 03:19 FiO2 35 11/20/22 18:00 11/20/22 11/20/22 11/20/22 06:59 14:59 22:59 Intake Total 300 / 800.000 250 / 250 Output Total 900 / 1200 1600 / 1600 100 / 1700 Balance -600 / -400.000 -1350 / -1350 -100 / -1450 Weight last 48 hrs Weight 270 lb 14.4 oz Weight 270 lb 9.6 oz Weight 270 lb 9.6 oz Weight 325 lb Physical Exam Narrative: General : Patient is well developed , no acute distress, oriented x3 Head : Normal cephalic, a-traumatic. Ears : Pinnae and external canal are normal. Hearing is normal. Eyes : PERRLA, Sclera and injection are normal. No conjunctival discharge. Nose : Mucous membranes are without erythema. Throat : buccal mucosa is normal, gums are without significant recession or hypertrophy. Lungs : Equal chest rise bilaterally, no use of accessory muscles, trachea is midline. Cor : Rate and rhythm are normal. Abdomen : Soft, moderate distention, mildly tender to palpation in right upper quadrant, no g/r/m Extremities : No edema, no cyanosis or clubbing, dorsalis pedis pulses are present bilaterally, non-tender to palpation of calves. Upper extremities are normal bilaterally. Back : non-tender to palpation, no CVA tenderness. Neuro : CN II - XII intact, Upper and lower extremities have equal and full strength Urinary Catheter Management: Bocanegra: Cath Placed During This Visit: yes Reason for Continuing Indwelling Catheter: Accurate Measurement of Urinary Output in Critically Ill Patients Urinary Catheter Date of Insertion: 11/19/22 Urinary Catheter Time of Insertion: 04:25 Data 11/21/22 05:34 11/21/22 15:02 A&P Assessment and plan (1) Abdominal pain: (2) Melena: Plan Add Protonix and Carafate Abdominal exam is not very concerning at this time. I do not believe she has a significant acute bleed as she is not having bowel movements currently Ischemia of the loop of bowel is possible. We will reexamine tomorrow. No acute surgical intervention at this time. Medical management per hospitalist Coding Level of Care Code Acute Code for Chg Fwd Diagnoses Abdominal pain R10.9 Melena K92.1
--- NOTE | 2022-11-20 19:09 | PC.NURSE ---
Dopamine off: Per shift report w/ FERNANDEZ Villegas dopamine was titrated down and shut off at approximately 1500 11/20/22. MAR changed to reflect dopamine is off on arrival to shift.
[2022-11-20 20:05] LABS: Glucose Point of Care 73 mg/dL (70-110)
[2022-11-20] MEDS: DOPamine drip 400 MG/250 ML PREMIX 11.51 MG IV (20:30)
[2022-11-20] MEDS: metroNIDAZOLE 500 MG Tablet PO (20:33)
[2022-11-20] MEDS: ondansetron 2 mg/ML SDV 2 mL 4 MG IVP (20:40)
--- NOTE | 2022-11-20 20:48 | PC.NURSE ---
Nausea: Pt reported nausea after taking crushed PO medication w/ approximately 150 ml water. See MAR for administration of Zofran. Will leave BIPAP mask off until nausea subsides.
--- NOTE | 2022-11-20 20:51 | PC.NURSE ---
Dopamine restarted: Contistant low BP's (MAP less than 65) prompted dopamine to be restarted @2.5mcg/kg/min. See MAR for titration.
--- NOTE | 2022-11-20 21:15 | PC.NURSE ---
Low BG: BG in the 50's. 1 amp D50 given per protocol. Dr. Hackett notified. New order to change IVF to D10% @30ml/hr. Accu check Q1HR.
[2022-11-20] MEDS: dextrose 10% 1,000 ML 30 ML IV (21:51)
[2022-11-20 22:04] LABS: Glucose Point of Care 114 mg/dL (70-110)
[2022-11-20 23:06] LABS: Glucose Point of Care 110 mg/dL (70-110)
[2022-11-21] VITALS (74 sets, daily range): BP systolic 83–150; BP diastolic 30–80; PULSE 59–80; RESP 12–34; TEMP 36.7–37; O2SAT 90–100
[2022-11-21 00:11] LABS: Glucose Point of Care 102 mg/dL (70-110)
[2022-11-21 01:17] LABS: Glucose Point of Care 85 mg/dL (70-110)
[2022-11-21] MEDS: metoclopramide 5 mg/mL SDV 2 mL 10 MG IVP (02:05)
[2022-11-21] MEDS: ipratropium-albuterol 3 mL Neb INHALATION ×3 (03:04→20:27)
[2022-11-21 03:07] LABS: Glucose Point of Care 71 mg/dL (70-110)
[2022-11-21 03:07] LABS: Glucose Point of Care 78 mg/dL (70-110)
[2022-11-21 04:23] LABS: Glucose Point of Care 71 mg/dL (70-110)
[2022-11-21] MEDS: pantoprazole 40 mg SDV IVP ×2 (04:42→17:58)
[2022-11-21 05:09] LABS: Glucose Point of Care 61 mg/dL (70-110)
[2022-11-21 06:06] LABS: Eosinophils % 0.2 %; Hematocrit 28.3 % (37.0-47.0); Hemoglobin 8.8 g/dL (11.5-15.3); Lymphocytes # 0.4 10^3/uL (0.8-4.8); Lymphocytes % 7.3 %; Mean Corpuscular HGB Conc 31.1 g/dL (30.0-36.0); Mean Corpuscular Hemoglobin 30.3 pg (28.0-34.0); Mean Corpuscular Volume 97.6 fl (81-99); Mean Platelet Volume 9.7 fL (7.4-10.4); Monocytes # 0.4 10^3/uL (0.2-0.9); Monocytes % 6.7 %; Neutrophils # 5.14 10^3/uL (1.8-7.7); Neutrophils % 85.5 %; Nucleated Red Blood Cells % 0 %; Platelet Count 156 10^3/cmm (130-400); Red Cell Distribution Width 15.1 % (12.1-15.1)
[2022-11-21 06:07] LABS: Glucose Point of Care 124 mg/dL (70-110)
[2022-11-21 06:30] LABS: Blood Urea Nitrogen 66 mg/dL (8-23); Calcium 9.1 mg/dL (8.5-10.5); Carbon Dioxide 28 mmol/L (22-29); Chloride 81 mmol/L (98-107); Glucose 468 mg/dL (65-115); Osmolality Calculated 284 mOsm/kg (285-295)
[2022-11-21 06:58] LABS: Glucose Point of Care 113 mg/dL (70-110)
[2022-11-21 07:06] LABS: Anion Gap 13.2 (5-19); Potassium 5.2 mmol/L (3.5-5.1); Sodium 117 mmol/L (136-145)
[2022-11-21] MEDS: sodium chloride 3% 500 ML 25 ML IV (08:05)
[2022-11-21] MEDS: glucagon 1 mg/mL KIT 1 mL IM (08:10)
[2022-11-21 08:22] LABS: Glucose Point of Care 115 mg/dL (70-110)
--- NOTE | 2022-11-21 09:29 | PM.PN ---
Subjective Subjective: Patient is feeling better. Heart rate is normal. Vitals/I&O/Wt Last Vital Signs Temp 98.2 F 11/21/22 04:40 Pulse 64 11/21/22 09:16 Resp 19 H 11/21/22 09:05 BP 117/60 11/21/22 06:45 Pulse Ox 98 11/21/22 09:15 O2 Del Method BiPAP 11/21/22 09:05 O2 Flow Rate 6 11/21/22 04:16 FiO2 35 11/21/22 09:15 11/20/22 11/21/22 11/21/22 22:59 06:59 14:59 Intake Total 680.0 / 930.0 151.672 / 1081.672 Output Total 100 / 1700 1025 / 2725 Balance 580.0 / -770.0 -873.328 / -1643.328 Weight last 48 hrs Weight 265 lb 1.6 oz Weight 270 lb 14.4 oz Physical Exam Narrative: GENERAL: On BiPAP, confused NECK: No jugular vein distension. [] HEENT: No cyanosis. No icterus. No pallor. [] HEART: Regular S1 and S2. No murmur, rub or gallop. [] LUNGS: Clear to auscultate bilaterally. [] CENTRAL NERVOUS SYSTEM: Grossly nonfocal. [] EXTREMITIES: Lower extremities with 1+ edema bilaterally. Pulses palpable in the lower extremities, both dorsalis pedis and posterior tibial. [] Urinary Catheter Management: Bocanegra: Cath Placed During This Visit: yes Reason for Continuing Indwelling Catheter: Accurate Measurement of Urinary Output in Critically Ill Patients Urinary Catheter Date of Insertion: 11/19/22 Urinary Catheter Time of Insertion: 04:25 Data 11/22/22 03:30 11/22/22 06:06 A&P Assessment and plan (1) MATTIE (acute kidney injury): (2) CHF (congestive heart failure): (3) Bradycardia: (4) Acute hyperkalemia: (5) Acute hyponatremia: (6) Sleep apnea: (7) Mitral stenosis: (8) Atrial fibrillation: Plan Patient's heart rate is normal. Off dopamine. Continue monitoring. Electrolyte abnormality related bradycardia. Thank you for involving us with care of this patient. We will continue to follow. Please call with question. Attestations Medical Necessity Statement*: Care expected to cross 2 midnights. Coding Level of Care Code Acute Code for Chg Fwd Diagnoses MATTIE (acute kidney injury) N17.9 CHF (congestive heart failure) I50.9 Bradycardia R00.1 Acute hyperkalemia E87.5 Acute hyponatremia E87.1 Sleep apnea G47.30 Mitral stenosis I05.0 Atrial fibrillation I48.91
[2022-11-21] MEDS: sucralfate 1 gm/10 mL Oral Liq UDC PO ×2 (10:21→18:06)
[2022-11-21 10:25] LABS: Glucose Point of Care 152 mg/dL (70-110)
[2022-11-21] MEDS: metroNIDAZOLE IV 500 MG/100 ML PREMIX 100 MG IV ×2 (10:58→18:04)
--- NOTE | 2022-11-21 11:11 | PM.PN ---
Subjective Subjective: Was started on D5W infusion for Hypoglycemia Na dropped to 117 Medications: Reviewed: Yes Vitals/I&O/Wt Last Vital Signs Temp 98.2 F 11/21/22 04:40 Pulse 64 11/21/22 09:16 Resp 19 H 11/21/22 09:05 BP 117/60 11/21/22 06:45 Pulse Ox 98 11/21/22 09:15 O2 Del Method BiPAP 11/21/22 09:05 O2 Flow Rate 6 11/21/22 04:16 FiO2 35 11/21/22 09:15 11/20/22 11/21/22 11/21/22 22:59 06:59 14:59 Intake Total 680.0 / 930.0 151.672 / 1081.672 Output Total 100 / 1700 1025 / 2725 Balance 580.0 / -770.0 -873.328 / -1643.328 Weight last 48 hrs Weight 120.247 kg Weight 122.878 kg Physical Exam Narrative: Patient lethargic, on BiPAP, bradycardic, regular rate and rhythm per report + pedal edema Urinary Catheter Management: Bocanegra: Cath Placed During This Visit: yes Reason for Continuing Indwelling Catheter: Accurate Measurement of Urinary Output in Critically Ill Patients Urinary Catheter Date of Insertion: 11/19/22 Urinary Catheter Time of Insertion: 04:25 Data 11/21/22 05:34 11/21/22 05:34 A&P Assessment and plan (1) Acute hyponatremia: (2) Acute hyperkalemia: Plan 1. Acute on chronic kidney disease: Creatinine baseline in the mid 1 range, now presented with a MATTIE of creatinine 2.7 . patient non oliguric -Agree with holding metolazone. -Continue as needed doses of IV Lasix, Cr improved to 2.4 today 2. Hyperkalemia: Status post med management, await repeat BMP 3. Hyponatremia: Sodium 116 on presentation, urine sodium 10 and pending urine osmolality. Na 117 today , restarted 3% saline and will continue till Na rises to mid 120's range 4. Acute on chronic respiratory failure: Multifactorial, hypercapnea , volume overload, COPD 5. Bradycardia, holding amiodarone and Cardizem, further management per primary team and cardiology Patient evaluated using audiovisual cart. Time spent 45 minutes Attestations Medical Necessity Statement*: per medicine Coding Level of Care Code Acute Code for Chg Fwd Diagnoses Acute hyponatremia E87.1 Acute hyperkalemia E87.5
[2022-11-21] MEDS: FUROsemide 10 mg/mL SDV 4mL 40 MG IVP (12:22)
[2022-11-21 12:31] LABS: Sodium 124 mmol/L (136-145)
[2022-11-21 12:32] LABS: Glucose Point of Care 101 mg/dL (70-110)
--- NOTE | 2022-11-21 12:44 | PM.PN ---
Subjective Subjective: Patient this morning is on BiPAP No fever no leukocytosis Patient is able to answer simple Fatigued and lethargic Patient required dopamine low-dose Hemoglobin stable Patient required dextrose D10 overnight which dropped her sodium, hypertonic saline given at 25 mill per hour, sodium 124 adequate urine output Creatinine improving Patient is still fluid overloaded Vitals/I&O/Wt Last Vital Signs Temp 98.6 F 11/21/22 08:30 Pulse 64 11/21/22 11:33 Resp 16 11/21/22 11:00 BP 122/49 11/21/22 11:00 Pulse Ox 98 11/21/22 11:33 O2 Del Method BiPAP 11/21/22 09:05 O2 Flow Rate 6 11/21/22 04:16 FiO2 35 11/21/22 11:33 11/20/22 11/21/22 11/21/22 22:59 06:59 14:59 Intake Total 680.0 / 930.0 151.672 / 1081.672 136.143 / 136.143 Output Total 100 / 1700 1025 / 2725 Balance 580.0 / -770.0 -873.328 / -1643.328 136.143 / 136.143 Weight last 48 hrs Weight 120.247 kg Weight 122.878 kg Physical Exam Narrative: Andreina isPatient on BiPAP Hemodynamic stable Dopamine drip at the bedside Fluid overloaded Skin wrinkling noted Extremities are swollen Abdomen distended Less tenderness compared to yesterday Bowel sounds sluggish Patient is able to answer simple questions Nonfocal neuro exam S1, S2 Urinary Catheter Management: Bocanegra: Cath Placed During This Visit: yes Reason for Continuing Indwelling Catheter: Accurate Measurement of Urinary Output in Critically Ill Patients Urinary Catheter Date of Insertion: 11/19/22 Urinary Catheter Time of Insertion: 04:25 Data 11/21/22 05:34 11/21/22 11:36 A&P Assessment and plan (1) CHF (congestive heart failure): (2) Bradycardia: (3) Acute hyperkalemia: (4) Acute hyponatremia: (5) Acute upper GI bleed: (6) Sleep apnea: (7) Pulmonary HTN: (8) Mitral stenosis: (9) Pneumonia: (10) Valvular heart disease: (11) Myelodysplasia (myelodysplastic syndrome): (12) Acute diastolic CHF (congestive heart failure): (13) ATN (acute tubular necrosis): Plan Melanotic stools: Normal discordance Hemoglobin stable Status post [address] abdomen pelvis consistent with significant findings, however abdominal exam is benign, lactic acid normal no leukocytosis or fever currently she is on IV antibiotics General surgery on board Dr. Marshall added Protonix and Carafate Bradycardia related to hyperkalemia patient was also taking AV laura blocking agents at home for history of A-fib Currently on dopamine drip at low-dose Resistant hypervolemia Adequate urine output, We will follow-up with nephrology to see, I will give her Lasix 40 mg IV push today ATN related to hypotension and nephrotoxic agents Adequate urine output Patient is not acidotic, creatinine improving, Hyponatremia Hypervolemic Patient also received dextrose Received hypertonic saline today as well Sodium check every 4 hours We will let nephrology know about sodium level hyperkalemia with Constipation would avoid Kayexalate Not a candidate of insulin Albuterol 4 puffs We will give her 1 amp of bicarb Hypoglycemia Poor p.o. intake, will give her glucagon D10 turned off this morning Hypoxic hypercarbic respiratory failure We can give her a break from BiPAP Severe pulmonary hypertension, mitral valve stenosis Because of fatigue and lethargy I believe with patient being on clear liquid diet for now Patient is full code Family updated Attestations Medical Necessity Statement*: Continue ICU management Diagnoses CHF (congestive heart failure) I50.9 Bradycardia R00.1 Acute hyperkalemia E87.5 Acute hyponatremia E87.1 Acute upper GI bleed K92.2 Sleep apnea G47.30 Pulmonary HTN I27.20 Mitral stenosis I05.0 Pneumonia J18.9 Valvular heart disease I38 Myelodysplasia (myelodysplastic syndrome) D46.9 Acute diastolic CHF (congestive heart failure) I50.31 ATN (acute tubular necrosis) N17.0
--- NOTE | 2022-11-21 13:28 | XR_ITS ---
WS: [id number] Acute abdomen series, 11/21/2022 Clinical Data: tender. Free air? Comparison: Portable chest, 11/19/2022 Findings: In the chest there are no nodules or, masses. There is a patchy opacity in the right lower lobe and probably a right pleural effusion. The patchy opacity may represent atelectasis or pneumonia . The heart is enlarged. There is a left PICC line ending in the superior vena cava. No free air is seen beneath the diaphragms. No abnormal intra-abdominal masses or calcifications are seen. There are pancreatic calcifications. The abdomen shows haziness which may be a large amount of fluid in the subcutaneous tissue or ascites in the abdomen. Monitor leads are on the abdominal and ch est harman. XR/XR acute abdomen series [id number] Impression: 1. Patchy opacity in right lower lobe with right pleural effusion unchanged. 2. Negative for free air. 3.. Probable subcutaneous abdominal wall edema or ascites.
[2022-11-21] MEDS: calcium gluconate 0.9% NaCL 1 GM/50 ML PREMIX IV (13:35)
[2022-11-21] MEDS: albuterol 2.5 mg/3 mL Neb 10 MG INHALATION (13:36)
[2022-11-21 15:31] LABS: Sodium 125 mmol/L (136-145)
[2022-11-21 15:58] LABS: Glucose Point of Care 79 mg/dL (70-110)
[2022-11-21 16:30] LABS: Osmolality Urine 244 mOsm/kg (50-1200)
--- NOTE | 2022-11-21 16:32 | P.PN_ITS ---
Subjective Subjective: Patient seen and examined. Still no bowel movement. She reports she is passing flatus. Tolerating minimal liquids. Vitals/I&O/Wt Last Vital Signs Temp 98.0 F 11/21/22 14:00 Pulse 72 11/21/22 15:00 Resp 19 H 11/21/22 15:00 BP 120/62 11/21/22 15:00 Pulse Ox 100 11/21/22 15:00 O2 Del Method BiPAP 11/21/22 14:00 O2 Flow Rate 6 11/21/22 04:16 FiO2 35 11/21/22 14:00 11/21/22 11/21/22 11/21/22 06:59 14:59 22:59 Intake Total 151.672 / 1081.672 805.828 / 805.828 Output Total 1025 / 2725 Balance -873.328 / -1643.328 805.828 / 805.828 Weight last 48 hrs Weight 265 lb 1.6 oz Weight 270 lb 14.4 oz Physical Exam Narrative: General, mild distress while on BiPAP Abdomen: Distended, tender to palpation right upper quadrant, no guarding bc ound or masses Urinary Catheter Management: Bocanegra: Cath Placed During This Visit: yes Reason for Continuing Indwelling Catheter: Accurate Measurement of Urinary Output in Critically Ill Patients Urinary Catheter Date of Insertion: 11/19/22 Urinary Catheter Time of Insertion: 04:25 Data 11/21/22 05:34 11/21/22 15:02 A&P Assessment and plan (1) Abdominal pain: (2) Melena: Plan Protonix and Carafate Acute abdominal series performed today and does not show free air and shows a no rmal bowel gas pattern Will reexamine tomorrow. No acute surgical intervention at this time. Medical management per hospitalist Attestations Medical Necessity Statement*: Per hospitalist Coding Level of Care Code Acute Code for Chg Fwd Diagnoses Abdominal pain R10.9 Melena K92.1
[2022-11-21] MEDS: cefepime 2,000 MG in sodium chloride 0.9% (plus) 50 ML 100 MG IV (17:51)
[2022-11-21] MEDS: hydrocortisone 100 mg/2 mL SDV IVP (18:01)
[2022-11-21 18:27] LABS: Glucose Point of Care 67 mg/dL (70-110)
[2022-11-21 18:46] LABS: Glucose Point of Care 237 mg/dL (70-110)
--- NOTE | 2022-11-21 19:23 | PC.NURSE ---
#% saline stopped at 1300 today. MAR is not lettng nurse document in titration section.
--- NOTE | 2022-11-21 19:27 | PC.NURSE ---
SHift SUmmary: Uneventful shift Patien. Rested in bed throuhgout the day. Stayed on BIPAP all day, had 3 10 minute break form the bipap with meals, but she only takes a couple sips of applejuice and refuses anything else to eat due to nausea. SHe is only able to tolerate about 10 minutes off of the bipap at a time due to an increase work of breathing evidenced by increased rate, pursed lip breathing, and increased anxiety. Blood sugar has been variable, sometimes requiring D50 and glucagon. Briefly on 3% saline but discontinued due to increasing sodium levels. total urine output has been 1425mL.
[2022-11-21 21:07] LABS: Glucose Point of Care 171 mg/dL (70-110)
[2022-11-21 22:07] LABS: Glucose Point of Care 186 mg/dL (70-110)
[2022-11-21 23:23] LABS: Glucose Point of Care 166 mg/dL (70-110)
[2022-11-22] VITALS (58 sets, daily range): BP systolic 75–166; BP diastolic 28–89; PULSE 71–102; RESP 13–26; TEMP 36.9–37.7; O2SAT 93–99; BMI 42.7
[2022-11-22] MEDS: metoclopramide 5 mg/mL SDV 2 mL 10 MG IVP ×2 (00:37→12:32)
[2022-11-22 00:38] LABS: Glucose Point of Care 141 mg/dL (70-110)
[2022-11-22] MEDS: metroNIDAZOLE IV 500 MG/100 ML PREMIX 100 MG IV ×3 (01:24→18:05)
[2022-11-22 01:30] LABS: Glucose Point of Care 146 mg/dL (70-110)
[2022-11-22 02:21] LABS: Glucose Point of Care 133 mg/dL (70-110)
[2022-11-22] MEDS: ipratropium-albuterol 3 mL Neb INHALATION ×4 (02:31→19:59)
[2022-11-22 03:35] LABS: Glucose Point of Care 121 mg/dL (70-110)
[2022-11-22 04:33] LABS: Hematocrit 26.6 % (37.0-47.0); Hemoglobin 8.2 g/dL (11.5-15.3); Lymphocytes # 0.3 10^3/uL (0.8-4.8); Lymphocytes % 7.9 %; Mean Corpuscular HGB Conc 30.8 g/dL (30.0-36.0); Mean Corpuscular Volume 97.4 fl (81-99); Mean Platelet Volume 9.4 fL (7.4-10.4); Monocytes # 0.2 10^3/uL (0.2-0.9); Monocytes % 4.5 %; Neutrophils # 3.67 10^3/uL (1.8-7.7); Neutrophils % 87.4 %; Nucleated Red Blood Cells % 0 %; Platelet Count 136 10^3/cmm (130-400); Red Blood Count 2.73 10^6/uL (4.1-5.3); Red Cell Distribution Width 14.6 % (12.1-15.1); White Blood Count 4.2 10^3/uL (4.0-10.0)
[2022-11-22] MEDS: pantoprazole 40 mg SDV IVP ×2 (04:38→17:59)
[2022-11-22] MEDS: hydrocortisone 100 mg/2 mL SDV IVP (04:39)
[2022-11-22 04:50] LABS: Glucose Point of Care 106 mg/dL (70-110)
--- NOTE | 2022-11-22 06:11 | P.PN_ITS ---
Subjective Subjective: Patient has been afebrile Adequate urine output BMP is pending Sodium 125 from last night Blood glucose improved She was started on hydrocortisone stress dose steroids No free air evident on chest x-ray Hemoglobin started trickling down Hemodynamically stable Vitals/I&O/Wt Last Vital Signs Temp 98.4 F 11/22/22 04:00 Pulse 75 11/22/22 04:30 Resp 22 H 11/22/22 04:30 BP 101/52 11/22/22 04:30 Pulse Ox 97 11/22/22 04:30 O2 Del Method BiPAP 11/22/22 02:36 O2 Flow Rate 2 11/21/22 18:30 FiO2 35 11/22/22 04:00 11/21/22 11/21/22 11/22/22 14:59 22:59 06:59 Intake Total 805.828 / 805.828 300 / 1105.828 150 / 1255.828 Output Total 1900 / 1900 Balance 805.828 / 805.828 -1600 / -794.172 150 / -644.172 Weight last 48 hrs Weight 120.247 kg Physical Exam Narrative: Generalized anasarca On BiPAP Hemodynamically stable Bocanegra catheter in place Edema of extremities with wrinkling of skin noted Patient able to answer questions Fatigued and lethargic Urinary Catheter Management: Bocanegra: Cath Placed During This Visit: yes Reason for Continuing Indwelling Catheter: Accurate Measurement of Urinary Output in Critically Ill Patients Urinary Catheter Date of Insertion: 11/19/22 Urinary Catheter Time of Insertion: 04:25 Data 11/22/22 03:30 11/22/22 06:06 A&P Assessment and plan (1) Melena: (2) Abdominal pain: (3) ATN (acute tubular necrosis): (4) CHF (congestive heart failure): (5) Bradycardia: (6) Acute hyperkalemia: (7) Acute hyponatremia: (8) Acute upper GI bleed: (9) Sleep apnea: (10) Pulmonary HTN: (11) Mitral stenosis: (12) Pneumonia: (13) Type 2 diabetes mellitus: Qualifiers: Diabetes mellitus complication status: with hyperglycemia Diabetes mellitus group home insulin use: with group home use Qualified Code(s): E11.65 - Type 2 diabetes mellitus with hyperglycemia; Z79.4 - senior care (current) use of insulin (14) Acute on chronic diastolic (congestive) heart failure: (15) PAD (peripheral artery disease): (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: Qualifiers: Bone marrow failure anemia type: other bone marrow failure Qualified Code(s): D61.89 - Other specified aplastic anemias and other bone marrow failure syndromes Plan Acute DCHF exacerbation Persistent hypervolemia However patient making adequate urine No signs of acidosis Full follow-up with BMP I am continuing Lasix on daily basis No plan for hemodialysis as of yet as per nephrology recommendations ATN Nonoliguric Patient was treated for hyperkalemia Hypoglycemia: Concern for addisonian crisis Started on stress dose steroids Hypoxic hypercarbic respiratory failure Hypoventilation because of increased abdominal girth due to ascites Patient required BiPAP Free air concern however patient has no fever, leukocytosis or free air noted on chest x-ray She has been started on IV antibiotics Concern for pneumonia as well: Infiltrate noted on the x-ray Melanotic stools: Hemoglobin trickling down patient carries a anemia of chronic disease No need of blood transfusion We will follow-up with nephro and general surgery recommendations Bradycardia improved Likely related to AV laura blocking agents and electrolyte imbalance Full code We will start patient on TPN because her poor p.o. intake is causing h ypoglycemic events Guarded prognosis Family meeting conducted: Patient was seen multiple times I have encouraged patient to take her for BiPAP and eat pur?ed diet We will start TPN today Dietitian consulted Spoke with Dr. Marshall who took this patient to the OR for EGD around noon it showed mild portal hypertensive gastropathy with no active bleeding likely associated with ascites, Attestations Medical Necessity Statement*: Continue ICU management Diagnoses Melena K92.1 Abdominal pain R10.9 ATN (acute tubular necrosis) N17.0 CHF (congestive heart failure) I50.9 Bradycardia R00.1 Acute hyperkalemia E87.5 Acute hyponatremia E87.1 Acute upper GI bleed K92.2 Sleep apnea G47.30 Pulmonary HTN I27.20 Mitral stenosis I05.0 Pneumonia J18.9 Type 2 diabetes mellitus E11.65; Z79.4 Diabetes mellitus complication status: with hyperglycemia Diabetes mellitus exterminator termite insulin use: with exterminator termite use Acute on chronic diastolic (congestive) heart failure I50.33 PAD (peripheral artery disease) I73.9 Anemia aplastic aregenerative D61.89 Bone marrow failure anemia type: other bone marrow failure
[2022-11-22 06:12] LABS: Glucose Point of Care 97 mg/dL (70-110)
[2022-11-22 07:17] LABS: Anion Gap 14.1 (5-19); Blood Urea Nitrogen 67 mg/dL (8-23); Calcium 9.2 mg/dL (8.5-10.5); Carbon Dioxide 30 mmol/L (22-29); Chloride 89 mmol/L (98-107); Glucose 85 mg/dL (65-115); Osmolality Calculated 287 mOsm/kg (285-295); Potassium 4.1 mmol/L (3.5-5.1); Sodium 129 mmol/L (136-145)
[2022-11-22] MEDS: FUROsemide 10 mg/mL SDV 4mL 40 MG IVP (08:22)
[2022-11-22] MEDS: sucralfate 1 gm/10 mL Oral Liq UDC PO (08:24)
[2022-11-22 08:38] LABS: Glucose Point of Care 93 mg/dL (70-110)
--- NOTE | 2022-11-22 08:45 | PC.NUTR ---
Received consult for TPN. Recommend TPN beginning at 12 mls/hr and increasing 10 mls/hr Q8H until goal rate of 42 mls/hr is reached, along with MV 10 mls/hr and std electrolytes and fat emulsion 25 grams/[address] assessment.
--- NOTE | 2022-11-22 08:48 | PM.PN ---
Subjective Subjective: on BIPAP no other complaints Medications: Reviewed: Yes Vitals/I&O/Wt Last Vital Signs Temp 98.4 F 11/22/22 04:00 Pulse 76 11/22/22 07:50 Resp 18 11/22/22 07:40 BP 116/35 11/22/22 06:30 Pulse Ox 96 11/22/22 07:49 O2 Del Method BiPAP 11/22/22 07:40 O2 Flow Rate 2 11/21/22 18:30 FiO2 30 11/22/22 07:49 11/21/22 11/22/22 11/22/22 22:59 06:59 14:59 Intake Total 300 / 1105.828 150 / 1255.828 Output Total 1900 / 1900 550 / 2450 Balance -1600 / -794.172 -400 / -1194.172 Weight last 48 hrs Weight 120 kg Weight 120.247 kg Physical Exam Narrative: Patient lethargic, on BiPAP, bradycardic, regular rate and rhythm per report + pedal edema Urinary Catheter Management: Bocanegra: Cath Placed During This Visit: yes Reason for Continuing Indwelling Catheter: Accurate Measurement of Urinary Output in Critically Ill Patients Urinary Catheter Date of Insertion: 11/19/22 Urinary Catheter Time of Insertion: 04:25 Data 11/22/22 03:30 11/22/22 06:06 A&P Assessment and plan (1) Acute hyponatremia: (2) Acute hyperkalemia: Plan 1. Acute on chronic kidney disease: Creatinine baseline in the mid 1 range, now presented with a MATTIE of creatinine 2.7 . patient non oliguric -Agree with holding metolazone. -on IV Lasix, Cr improved to 2.2 today , Hold lasix today for met alkalosis , will resume in Am 2. Hyperkalemia: Status post med management, await repeat BMP 3. Hyponatremia: Sodium 116 on presentation, urine sodium 10 and pending urine osmolality. Na 129 today , s/p d 3% saline 4. Acute on chronic respiratory failure: Multifactorial, hypercapnea , volume overload, COPD 5. Bradycardia, holding amiodarone and Cardizem, further management per primary team and cardiology Patient evaluated using audiovisual cart. Time spent 45 minutes Attestations Medical Necessity Statement*: per medicine Coding Level of Care Code Acute Code for Chg Fwd Diagnoses Acute hyponatremia E87.1 Acute hyperkalemia E87.5
--- NOTE | 2022-11-22 08:54 | PC.SOCIAL ---
IMM update IMM updated with patient. Verbalized an understanding. Copy Pg 2 provided. Initialled, dated, timed, and placed in chart.
[2022-11-22] MEDS: ciprofloxacin 0.3% Op Soln 2.5 mL Btl 1 DROP EYE-BOTH ×2 (09:06→18:05)
--- NOTE | 2022-11-22 10:00 | ANES.PREANE2 ---
Pre-Anesthetic Assessment Height/Weight: Height 1.68 m Weight 120 kg Temp Pulse Resp BP Pulse Ox O2 Del Method O2 Flow Rate 98.4 F 76 18 116/35 96 BiPAP 2 11/22/22 04:00 11/22/22 07:50 11/22/22 07:40 11/22/22 06:30 11/22/22 07:49 11/22/22 07:40 11/21/22 18:30 FiO2 30 11/22/22 07:49 Operation Date: 11/22/22 10:30 Proposed Procedures p EGD(Not Applicable) - Asher Marshall, DO Was Beta Earl taken within 24 hours: N/A Was Clonidine taken within 24 hours: N/A Last intake: Intake Last Liquid Date 11/21/22 Last Liquid Time 18:00 Last Solid Date 11/20/22 Social No alcohol and No tobacco Exam alert and oriented x 3 Airway Submandibular: within normal limits Cervical ROM: within normal limits Mallampati: Class III Dentition: full History/ROS No significant history except as noted Pulmonary Chronic Obstructive Pulmonary Disease (uses home O2 2-4 L) CV/HEM Atrial Fibrillation, Arrythmia (bradycardia), Congestive Heart Failure, Hypertension, Myocardial Infarction (NSTEMI 10/2022) and Peripheral Vascular Disease pulm HTN, mitral stenosis Chronic Renal Insufficiency (MATTIE) Hepatic None reported GI Gastroesophageal Reflux Disease Metabolic Diabetes Mellitus and Morbid Obesity [facility] [place] None reported Neuropsych None reported Anesthetic Plan ASA status: 4 Anesthesia: General and MAC Risk of > 500 ml blood loss (7ml/kg in children): No Medications/Allergies Home Medications Medication Instructions Recorded Confirmed Last Taken Type albuterol sulfate 90 mcg/actuation 2 puff inhalation Q6H PRN 06/29/20 11/19/22 08/20/22 History aerosol inhaler Shortness Of Breath aspirin 81 mg chewable tablet 81 mg PO DAILY 06/29/20 11/19/22 10/15/22 History atorvastatin 20 mg tablet 20 mg PO BEDTIME 06/29/20 11/19/22 10/15/22 History fluticasone propionate 50 1 spray intranasal DAILY 06/29/20 11/19/22 10/15/22 History mcg/actuation nasal spray,suspension insulin lispro 100 unit/mL See Rx Instructions .Route .COMPLEX 06/29/20 11/19/22 08/20/22 History subcutaneous pen (Humalog KwikPen (U-100) Insulin) latanoprost 0.005 % eye drops 1 drp ophthalmic (eye) BEDTIME 06/29/20 11/19/22 10/15/22 History rpeter-kffkkzaw-whafoqn 2 cap PO TID 06/29/20 11/19/22 10/15/22 History 24,000-76,000-120,000 unit capsule,delayed rel (Creon) mupirocin 2 % topical ointment 1 applic topical DAILY 06/29/20 11/19/22 Unknown History pantoprazole 40 mg tablet,delayed 40 mg PO DAILY 06/29/20 11/19/22 10/15/22 History release umeclidinium 62.5 mcg-vilanterol 2 ea inhalation DAILY 06/29/20 11/19/22 08/20/22 History 25 mcg/actuation powdr for inhalation (Anoro Ellipta) dorzolamide 2 % eye drops 1 drp ophthalmic (eye) BID 07/27/20 11/19/22 10/15/22 History ondansetron HCl 4 mg tablet 4 mg PO Q6H PRN nausea and vomiting 07/27/20 11/19/22 08/20/22 History gabapentin 100 mg capsule 100 mg PO TID 11/16/20 11/19/22 10/15/22 History clonidine HCl 0.1 mg tablet 0.2 mg PO BID 11/15/21 11/19/22 10/15/22 History biotin 5,000 mcg sublingual tablet 5,000 mcg sublingual BID 08/20/22 11/19/22 10/15/22 History cholecalciferol (vitamin D3) 25 25 mcg PO DAILY 08/20/22 11/19/22 10/15/22 History mcg (1,000 unit) capsule (Vitamin D3) ferrous sulfate 325 mg (65 mg 325 mg PO TID 08/20/22 11/19/22 10/15/22 History iron) tablet (iron) insulin glargine U-300 conc 300 130 unit SUBCUT DAILY 08/20/22 11/19/22 10/15/22 History unit/mL (1.5 mL) subcutaneous pen (Toujeo SoloStar U-300 Insulin) pnwirtoe-xgs-lrxfb ac 400 1 tab PO DAILY 08/20/22 11/19/2210/15/23 History mcg-calcium carb 500 mg-vit K1 20 mcg tablet (Women's 50 Plus Multivitamin) clotrimazole 1 % topical cream 1 applic topical BID 4 weeks #30 08/28/22 11/19/22 10/15/22 Rx grams furosemide 40 mg tablet 60 mg PO DAILY@0800 #90 tabs 09/11/22 11/19/22 10/15/22 Rx hydralazine 25 mg tablet 25 mg PO TID #90 tabs 09/11/22 11/19/22 10/15/22 Rx adalimumab 40 mg/0.4 mL 40 mg SUBCUT Q7D 10/16/22 11/19/22 Unknown History subcutaneous pen kit (Humira(CF) Pen) albuterol sulfate 2.5 mg/3 mL 2.5 mg inhalation QID PRN 10/16/22 11/19/22 Unknown History (0.083 %) solution for nebulization Shortness Of Breath ipratropium bromide 0.02 % 2.5 ml inhalation QID PRN 10/16/22 11/19/22 Unknown History solution for inhalation Shortness Of Breath diltiazem HCl 120 mg 120 mg PO DAILY #30 caps 10/27/22 11/19/22 Unknown Rx capsule,extended release 24 hr metolazone 5 mg tablet 5 mg PO DAILY 30 days #30 tabs 10/27/22 11/19/22 Unknown Rx amiodarone 200 mg tablet (Pacerone) 200 mg PO DAILY #90 tabs 11/11/22 11/19/22 Unknown Rx scopolamine base 1 mg over 3 days 1 patch transdermal Q3D PRN Nausea 11/11/22 11/19/22 Unknown History transdermal patch And Vomiting Allergies Allergy/AdvReac Type Severity Reaction Status Date / Time doxycycline Allergy Unknown Verified 09/11/22 15:59 Sulfa (Sulfonamide Allergy ALGY-Rash Verified 09/11/22 15:59 Antibiotics) Current Medications Generic Name Dose Route Start Last Admin Trade Name Freq PRN Reason Stop Dose Admin Albuterol/Ipratropium 3 ml 11/19/22 08:00 11/22/22 07:46 Ipratropium-Albuterol 3 Ml Neb INHALATION 3 ml Q6H.RESP DELVIN Administration Atropine Sulfate 0.4 mg 11/19/22 06:28 11/19/22 07:27 Atropine 0.4 Mg/Ml Sdv 1ml IVP 0.4 mg PRN PRN Administration heart rate < 35 Ciprofloxacin HCl 1 drop 11/22/22 09:00 11/22/22 09:06 Ciprofloxacin 0.3% Op Soln 2.5 Ml Btl EYE-BOTH 1 drop BID DELVIN Administration Protocol Furosemide 40 mg 11/20/22 09:00 11/22/22 08:22 Furosemide 10 Mg/Ml Sdv 4ml IVP 40 mg Q24H DELVIN Administration Hydrocortisone Sodium Succinate 100 mg 11/21/22 17:45 11/22/22 04:39 Hydrocortisone 100 Mg/2 Ml Sdv IVP 100 mg Q12H DELVIN Administration Dopamine HCl/Dextrose 400 mg in 250 mls @ 23.014 mls/hr 11/19/22 09:15 11/21/22 13:05 Intropin Drip IV Infused CONT DELVIN Titration Protocol 5 MCG/KG/MIN Cefepime HCl 2,000 mg/ Sodium 50 mls @ 100 mls/hr 11/20/22 16:30 11/21/22 19:48 Chloride IV Infused Q24H DELVIN Infusion Protocol Sodium Chloride 500 mls @ 25 mls/hr 11/21/22 08:00 11/21/22 08:05 Sodium Chloride 3% IV 25 mls/hr .Q20H DELVIN Administration Metronidazole 500 mg in 100 mls @ 100 mls/hr 11/21/22 10:30 11/22/22 02:24 Flagyl Iv IV Infused Q8H [facility] Infusion Protocol Insulin Human Lispro 0 unit 11/19/22 08:00 11/22/22 09:05 Insulin Lispro 100 Unit/1 Ml SUBCUT Not Given WM&BEDTIME [facility] Protocol Insulin Human Lispro 0 unit 11/20/22 18:00 11/22/22 09:05 Insulin Lispro 100 Unit/1 Ml SUBCUT Not Given TIDWM [facility] Protocol Metoclopramide HCl 10 mg 11/19/22 19:48 11/22/22 00:37 Metoclopramide 5 Mg/Ml Sdv 2 Ml IVP 10 mg Q8H PRN Administration NAUSEA AND VOMITING Ondansetron HCl 4 mg 11/19/22 12:20 11/20/22 20:40 Ondansetron 2 Mg/Ml Sdv 2 Ml IVP 4 mg Q6H PRN Administration NAUSEA AND VOMITING Pantoprazole Sodium 40 mg 11/20/22 17:00 11/22/22 04:38 Pantoprazole 40 Mg Sdv IVP 40 mg Q12H DELVIN Administration Scopolamine 1 patch 11/19/22 20:00 11/19/22 20:15 Scopolamine 1.5 Patch TRANSDERMA 1 patch Q3D DELVIN Administration Sucralfate 1 gm 11/20/22 18:00 11/22/22 08:24 Sucralfate 1 Gm/10 Ml Oral Liq Udc PO 1 gm BID DELVIN Administration PFSH Anesthesia Medical History Acute hypokalemia MATTIE (acute kidney injury) Anemia Atrial fibrillation COPD (chronic obstructive pulmonary disease) Decubitus ulcer Diabetes Heart failure Myelodysplasia (myelodysplastic syndrome) PAD (peripheral artery disease) Pneumonia Pneumonia due to COVID-19 virus Pulmonary HTN Sleep apnea Surgical History Hx of appendectomy Hx of cataract extraction Hx of section Hx of cholecystectomy Hx of hysterectomy Family History Mother CAD (coronary artery disease) Diabetes Daughter Diabetes Lung disease Suicide Son Diabetes Lung disease Denies family history of Clotting disorder Dementia Chronic kidney disease (CKD) Anesthesia complication Bleeding disorder Cancer Stroke Social History Smoking and tobacco status: former smoker (smoked x 8 years) Alcohol intake: never Substance/Drug Use: never Lives independently: Yes Household members: other Details: Son Data Anesthesia 11/22/22 03:30 11/22/22 06:06 Short CBC 11/21/22 11/22/22 Range/Units 05:34 03:30 WBC 6.0 4.2 (4.0-10.0) 10^3/uL Hgb 8.8 L 8.2 L (11.5-15.3) g/dL Hct 28.3 L 26.6 L (37.0-47.0) % MCV 97.6 97.4 (81-99) fl Plt Count 156 136 (130-400) 10^3/cmm Neut % (Auto) 85.5 87.4 % Neut # (Auto) 5.14 3.67 (1.8-7.7) 10^3/uL BMP 11/20/22 11/21/22 11/21/22 14:35 05:34 11:36 Sodium 122 L 117 L* 124 L Potassium 4.9 5.2 H Chloride 82 L 81 L Carbon Dioxide 31 H 28 BUN 72 H 66 H Creatinine 2.6 H 2.4 H Glucose 92 468 H Calcium 10.0 9.1 11/21/22 11/22/22 11/22/22 15:02 03:30 06:06 Sodium 125 L Cancelled 129 L Potassium Cancelled 4.1 Chloride Cancelled 89 L Carbon Dioxide Cancelled 30 H BUN Cancelled 67 H Creatinine Cancelled 2.2 H Glucose Cancelled 85 Calcium Cancelled 9.2 Cardiac Studies: Echocardiogram 10/16/22 Echocardiogram Ultrasound 06/30/20
[2022-11-22] MEDS: sodium chloride 0.9% 1,000 ML 30 ML IV (10:22)
--- NOTE | 2022-11-22 10:32 | PM.PN ---
Vitals/I&O/Wt Last Vital Signs Temp 98.5 F 11/22/22 10:08 Pulse 82 11/22/22 10:08 Resp 16 11/22/22 10:08 BP 108/48 11/22/22 10:08 Pulse Ox 97 11/22/22 10:08 O2 Del Method Nasal Cannula 11/22/22 10:08 O2 Flow Rate 4 11/22/22 10:08 FiO2 30 11/22/22 07:49 11/21/22 11/22/22 11/22/22 22:59 06:59 14:59 Intake Total 300 / 1105.828 150 / 1255.828 Output Total 1900 / 1900 550 / 2450 Balance -1600 / -794.172 -400 / -1194.172 Weight last 48 hrs Weight 264 lb 8.875 oz Weight 265 lb 1.6 oz Physical Exam Urinary Catheter Management: Bocanegra: Cath Placed During This Visit: yes Reason for Continuing Indwelling Catheter: Accurate Measurement of Urinary Output in Critically Ill Patients Urinary Catheter Date of Insertion: 11/19/22 Urinary Catheter Time of Insertion: 04:25 Data 11/22/22 03:30 11/22/22 06:06 A&P Assessment and plan (1) Melena: Plan EGD The risks and benefits of the procedure, including bleeding, infection, intestinal perforation requiring surgery, missed lesion were explained to the patient. The patient is understanding of the risks and wishes to proceed. Attestations Medical Necessity Statement*: Per primary Coding Level of Care Code Acute Code for [facility] Fwd Diagnoses Melena K92.1
[2022-11-22 12:40] LABS: Glucose Point of Care 98 mg/dL (70-110)
[2022-11-22 12:40] LABS: Glucose Point of Care 105 mg/dL (70-110)
[2022-11-22] MEDS: AA-Dex 5%-20% w/Lytes 1,000 ML with multivitamin inj 10 ML 12 ML IV (13:28)
--- NOTE | 2022-11-22 14:56 | PM.PN ---
Subjective Subjective: Patient feeling better. Heart rate is normal Vitals/I&O/Wt Last Vital Signs Temp 98.8 F 11/22/22 12:30 Pulse 101 H 11/22/22 14:03 Resp 18 11/22/22 14:00 BP 122/49 11/22/22 13:30 Pulse Ox 98 11/22/22 14:00 O2 Del Method BiPAP 11/22/22 14:00 O2 Flow Rate 4 11/22/22 10:08 FiO2 30 11/22/22 14:00 11/21/22 11/22/22 11/22/22 22:59 06:59 14:59 Intake Total 300 / 1105.828 150 / 1255.828 200 / 200 Output Total 1900 / 1900 550 / 2450 900 / 900 Balance -1600 / -794.172 -400 / -1194.172 -700 / -700 Weight last 48 hrs Weight 264 lb 8.875 oz Weight 265 lb 1.6 oz Physical Exam Narrative: GENERAL: On BiPAP NECK: No jugular vein distension. [] HEENT: No cyanosis. No icterus. No pallor. [] HEART: Regular S1 and S2. No murmur, rub or gallop. [] LUNGS: Clear to auscultate bilaterally. [] CENTRAL NERVOUS SYSTEM: Grossly nonfocal. [] EXTREMITIES: Lower extremities with 1+ edema bilaterally. Pulses palpable in the lower extremities, both dorsalis pedis and posterior tibial. [] Urinary Catheter Management: Bocanegra: Cath Placed During This Visit: yes Reason for Continuing Indwelling Catheter: Accurate Measurement of Urinary Output in Critically Ill Patients Urinary Catheter Date of Insertion: 11/19/22 Urinary Catheter Time of Insertion: 04:25 Data 11/23/22 04:07 11/23/22 04:07 A&P Assessment and plan (1) MATTIE (acute kidney injury): (2) CHF (congestive heart failure): (3) Bradycardia: (4) Acute hyperkalemia: (5) Acute hyponatremia: (6) Sleep apnea: (7) Mitral stenosis: (8) Atrial fibrillation: Plan Heart rate is stable. She is in normal sinus rhythm. Continue telemetry monitoring. Renal function is stable. Thank you for involving us with care of this patient. We will continue to follow. Please call with questions. Attestations Medical Necessity Statement*: Care expected to cross 2 midnights. Coding Level of Care Code Acute Code for [facility] Fwd Diagnoses MATTIE (acute kidney injury) N17.9 CHF (congestive heart failure) I50.9 Bradycardia R00.1 Acute hyperkalemia E87.5 Acute hyponatremia E87.1 Sleep apnea G47.30 Mitral stenosis I05.0 Atrial fibrillation I48.91
--- NOTE | 2022-11-22 16:08 | ANE.PACU2 ---
Inpatient post-anesthesia follow up: Airway intact: Yes Vital signs: Temperature 98.8 F Pulse Rate 83 Respiratory Rate 18 Blood Pressure 122/49 Pulse Oximetry 95 Oxygen Delivery Me thod BiPAP Oxygen Flow Rate 4 Fraction of Inspir ed Oxygen 30 Hydration adequate: Yes Nausea and vomiting: No Pain level: 1 Mental status: Baseline
[2022-11-22] MEDS: cefepime 2,000 MG in sodium chloride 0.9% (plus) 50 ML 100 MG IV (18:01)
[2022-11-22 18:16] LABS: Glucose Point of Care 136 mg/dL (70-110)
--- NOTE | 2022-11-22 18:31 | PC.NURSE ---
SHift SUmmary: Uneventful shift. Patient rested in bed throughout the day. Went for an EGD during which 2 biopsies were taken. Patient has started eating a little more, but still only a bite or 2 of food and about 100mL of ensure per meal. TPN and fat emulsions started. 1 bowel movement which was small, black, and tarry. 1050 mL of urine output. Patient refused to work with physical therapy today, through she does appear to be a little stronger than yesterday, nurse and physical therapist explained the importance of doing physical therapy.
[2022-11-22 20:57] LABS: Glucose Point of Care 121 mg/dL (70-110)
[2022-11-22] MEDS: scopolamine 1.5 Patch 1 PATCH TRANSDERMA (21:37)
--- NOTE | 2022-11-22 22:27 | PC.NURSE ---
Addendum entered by Val Huizar RN 11/23/22 00:34: While informing the charge nurse on the current situation around 2214, Dr. Hackett comes into units and ask Charge nurse which nurse is FERNANDEZ Neal. I acknowledged Dr. Hackett and Dr. Hackett proceded to walk up to nurse in nursing station in front of multiple witnesses and stated Do not ever call me over an issue if the patient is not dying or it is not a critical situation. She then stated Am I right Stating is the patient , is it critical . I told Dr. Hackett that hospitalist was on board of patient and that is the reason for calling. She kept repeating her statement and mentioned other things. Conversation ended. Charge nurse and other fellow nurses aware of situation. Per original note below - First sentence states paged dr. Hackett regarding accuchecks but Dr. Hackett was originally paged for a different patient at 220 concerning orders but did not answer the first page by a different nurse. So therefore I paged Dr. Hackett for other nurse but while on the phone I ran the situation below through her on the patient in room 12 and this was all response. Original Note: Paged Dr. Hackett regarding patient accuchecks. Patient currently still on q1 hr accuchecks and informed provider that blood glucose has not been critical in few days and now is on TPN. Dr. Hackett stopped nurse and stated this is a day shift issue, do not call me over non critical issues, am I right . Nurse responded and told provider the reason she was calling was because nurse was under impression that hospitalist was on for medical management and that was the reason she was asking. Dr. Hackett kept repeating this is a day shift problem am I right with a zhou tone then asked what was past blood glucoses. Primary nurse read off past 10 blood glucoses. Primary nurse then received orders for q2 hours blood sugar and primary nurse then informed Dr. Hackett that another nurse needed to speak with her.
[2022-11-22 22:47] LABS: Glucose Point of Care 121 mg/dL (70-110)
[2022-11-23] VITALS (27 sets, daily range): BP systolic 95–164; BP diastolic 41–73; PULSE 68–90; RESP 11–23; TEMP 36.6–37; O2SAT 94–99; BMI 42.3
[2022-11-23 00:12] LABS: Glucose Point of Care 123 mg/dL (70-110)
[2022-11-23] MEDS: metroNIDAZOLE IV 500 MG/100 ML PREMIX 100 MG IV ×2 (01:43→10:01)
[2022-11-23] MEDS: ipratropium-albuterol 3 mL Neb INHALATION ×3 (02:09→19:24)
[2022-11-23 02:41] LABS: Glucose Point of Care 93 mg/dL (70-110)
[2022-11-23 04:24] LABS: Eosinophils % 0.5 %; Hematocrit 27.4 % (37.0-47.0); Hemoglobin 8.6 g/dL (11.5-15.3); Lymphocytes # 0.6 10^3/uL (0.8-4.8); Lymphocytes % 13.3 %; Mean Corpuscular HGB Conc 31.4 g/dL (30.0-36.0); Mean Corpuscular Hemoglobin 30.8 pg (28.0-34.0); Mean Corpuscular Volume 98.2 fl (81-99); Mean Platelet Volume 9.3 fL (7.4-10.4); Monocytes # 0.5 10^3/uL (0.2-0.9); Monocytes % 11.2 %; Nucleated Red Blood Cells % 0 %; Platelet Count 128 10^3/cmm (130-400); Red Blood Count 2.79 10^6/uL (4.1-5.3); Red Cell Distribution Width 14.9 % (12.1-15.1); White Blood Count 4.3 10^3/uL (4.0-10.0)
[2022-11-23 04:47] LABS: Anion Gap 11.2 (5-19); Blood Urea Nitrogen 58 mg/dL (8-23); Calcium 9.6 mg/dL (8.5-10.5); Carbon Dioxide 33 mmol/L (22-29); Chloride 92 mmol/L (98-107); Glucose 91 mg/dL (65-115); Osmolality Calculated 292 mOsm/kg (285-295); Potassium 3.2 mmol/L (3.5-5.1); Sodium 133 mmol/L (136-145)
[2022-11-23 04:47] LABS: Glucose Point of Care 112 mg/dL (70-110)
[2022-11-23] MEDS: pantoprazole 40 mg SDV IVP ×2 (05:33→16:19)
[2022-11-23 06:22] LABS: Glucose Point of Care 100 mg/dL (70-110)
--- NOTE | 2022-11-23 06:53 | P.PN_ITS ---
Subjective Subjective: Low-grade fever noted no overnight Pulses better Heart rate and blood pressure improved Creatinine improving Sodium 133 Patient was started on tPA 11/22 Family updated yesterday Can be transferred out of ICU today Vitals/I&O/Wt Last Vital Signs Temp 99 F 11/22/22 20:00 Pulse 74 11/23/22 06:00 Resp 15 11/23/22 06:00 BP 137/44 11/23/22 06:00 Pulse Ox 97 11/23/22 06:00 O2 Del Method BiPAP 11/23/22 02:09 O2 Flow Rate 4 11/22/22 10:08 FiO2 35 11/23/22 06:00 11/22/22 11/22/22 11/23/22 14:59 22:59 06:59 Intake Total 300 / 300 246.4 / 546.4 225 / 771.4 Output Total 900 / 900 700 / 1600 300 / 1900 Balance -600 / -600 -453.6 / -1053.6 -75 / -1128.6 Weight last 48 hrs Weight 119 kg Weight 119 kg Weight 120 kg Physical Exam Narrative: Clinical signs of fluid overload improving Lower extremity edema improving as well Bocanegra catheter in place with dilute yellow-colored urine Abdomen distended, hyperactive bowel sounds Slight tenderness left upper quadrant Blanchable ulcer sacral area Nonfocal neuro exam Fatigued and lethargic Patient requires BiPAP overnight Urinary Catheter Management: Bocanegra: Cath Placed During This Visit: yes Reason for Continuing Indwelling Catheter: Accurate Measurement of Urinary Output in Critically Ill Patients Urinary Catheter Date of Insertion: 11/19/22 Urinary Catheter Time of Insertion: 04:25 Data 11/23/22 04:07 11/23/22 04:07 A&P Assessment and plan (1) Melena: (2) Abdominal pain: (3) ATN (acute tubular necrosis): (4) CHF (congestive heart failure): (5) Bradycardia: (6) Acute hyperkalemia: (7) Acute hyponatremia: (8) Acute upper GI bleed: (9) Sleep apnea: (10) Pulmonary HTN: (11) Mitral stenosis: (12) Pneumonia: (13) Type 2 diabetes mellitus: Qualifiers: Diabetes mellitus complication status: with hyperglycemia Diabetes mellitus custodial insulin use: with terminal makeup operator use Qualified Code(s): E11.65 - Type 2 diabetes mellitus with hyperglycemia; Z79.4 - senior care (current) use of insulin (14) Myelodysplasia (myelodysplastic syndrome): (15) PAD (peripheral artery disease): Plan Melanotic stools: Improved Hemoglobin stable Patient carries of MDS Mesenteric ischemia, likely related to hypotension on admission, no free air on chest x-ray, appreciate general surgery recommendations, de-escalate antibiotics by tomorrow Bradycardia: Improved dopamine turned off This was related to electrolyte imbalance, patient did not complain of any chest pain, EKG showed sinus bradycardia we have all AV laura blocking agents ATN related to hypotension: Improving nonoliguric no need of dialysis Hypervolemic after multiple doses of hypertonic saline Diastolic CHF with acute exacerbation, volume status improving pulm hypertension likely related to underlying sleep apnea Hyperkalemia: Improved, she was given Lokelma 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 intake Initiate DVT prophylaxis with daily CBC check Attestations Medical Necessity Statement*: Patient can be transferred out of ICU Diagnoses Melena K92.1 Abdominal pain R10.9 ATN (acute tubular necrosis) N17.0 CHF (congestive heart failure) I50.9 Bradycardia R00.1 Acute hyperkalemia E87.5 Acute hyponatremia E87.1 Acute upper GI bleed K92.2 Sleep apnea G47.30 Pulmonary HTN I27.20 Mitral stenosis I05.0 Pneumonia J18.9 Type 2 diabetes mellitus E11.65; Z79.4 Diabetes mellitus complication status: with hyperglycemia Diabetes mellitus custodial insulin use: with terminal makeup operator use Myelodysplasia (myelodysplastic syndrome) D46.9 PAD (peripheral artery disease) I73.9
[2022-11-23 07:48] LABS: Glucose Point of Care 109 mg/dL (70-110)
[2022-11-23] MEDS: sucralfate 1 gm/10 mL Oral Liq UDC PO ×2 (09:00→17:11)
[2022-11-23] MEDS: ciprofloxacin 0.3% Op Soln 2.5 mL Btl 1 DROP EYE-BOTH ×2 (09:08→19:49)
[2022-11-23] MEDS: FUROsemide 10 mg/mL SDV 4mL 40 MG IVP (09:09)
--- NOTE | 2022-11-23 09:43 | PM.PN ---
Subjective Subjective: Patient awake, alert, having bowel movements and tolerating regular diet. Vitals/I&O/Wt Last Vital Signs Temp 99 F 11/22/22 20:00 Pulse 78 11/23/22 08:00 Resp 16 11/23/22 08:00 BP 137/44 11/23/22 06:00 Pulse Ox 96 11/23/22 08:00 O2 Del Method Nasal Cannula 11/23/22 08:00 O2 Flow Rate 2 11/23/22 08:00 FiO2 35 11/23/22 06:00 11/22/22 11/23/22 11/23/22 22:59 06:59 14:59 Intake Total 246.4 / 546.4 401 / 947.4 Output Total 700 / 1600 300 / 1900 Balance -453.6 / -1053.6 101 / -952.6 Weight last 48 hrs Weight 262 lb 5.601 oz Weight 262 lb 5.601 oz Weight 264 lb 8.875 oz Physical Exam Narrative: General: No acute distress, awake alert and oriented x3 Abdomen: Soft, nondistended, mild diffuse tenderness, no guarding rebound or masses Urinary Catheter Management: Bocanegra: Cath Placed During This Visit: yes Reason for Continuing Indwelling Catheter: Accurate Measurement of Urinary Output in Critically Ill Patients Urinary Catheter Date of Insertion: 11/19/22 Urinary Catheter Time of Insertion: 04:25 Data 11/23/22 04:07 11/23/22 04:07 A&P Assessment and plan (1) Melena: Plan Complete 6-week course of Protonix twice daily as an outpatient Await biopsy results Telehealth visit with me in 2 weeks for biopsy results No acute surgical intervention Medical management per primary General surgery will sign off. Please reconsult if necessary Attestations Medical Necessity Statement*: Per primary Coding Level of Care Code Acute Code for [facility] Fwd Diagnoses Melena K92.1
--- NOTE | 2022-11-23 09:59 | PM.PN ---
Subjective Subjective: Patient is feeling better. Heart rate is stable. Vitals/I&O/Wt Last Vital Signs Temp 99 F 11/22/22 20:00 Pulse 78 11/23/22 08:00 Resp 16 11/23/22 08:00 BP 137/44 11/23/22 06:00 Pulse Ox 96 11/23/22 08:00 O2 Del Method Nasal Cannula 11/23/22 08:00 O2 Flow Rate 2 11/23/22 08:00 FiO2 35 11/23/22 06:00 11/22/22 11/23/22 11/23/22 22:59 06:59 14:59 Intake Total 246.4 / 546.4 401 / 947.4 Output Total 700 / 1600 300 / 1900 Balance -453.6 / -1053.6 101 / -952.6 Weight last 48 hrs Weight 262 lb 5.601 oz Weight 262 lb 5.601 oz Weight 264 lb 8.875 oz Physical Exam Narrative: GENERAL: Alert NECK: No jugular vein distension. [] HEENT: No cyanosis. No icterus. No pallor. [] HEART: Regular S1 and S2. No murmur, rub or gallop. [] LUNGS: Clear to auscultate bilaterally. [] CENTRAL NERVOUS SYSTEM: Grossly nonfocal. [] EXTREMITIES: Lower extremities with 1+ edema bilaterally. Pulses palpable in the lower extremities, both dorsalis pedis and posterior tibial. [] Urinary Catheter Management: Bocanegra: Cath Placed During This Visit: yes Reason for Continuing Indwelling Catheter: Accurate Measurement of Urinary Output in Critically Ill Patients Urinary Catheter Date of Insertion: 11/19/22 Urinary Catheter Time of Insertion: 04:25 Data 11/24/22 05:05 11/24/22 05:05 A&P Assessment and plan (1) MATTIE (acute kidney injury): (2) CHF (congestive heart failure): (3) Bradycardia: (4) Acute hyperkalemia: (5) Acute hyponatremia: (6) Sleep apnea: (7) Mitral stenosis: (8) Atrial fibrillation: Plan No more having bradycardic episodes. Continue telemetry monitoring. Renal function is improving. Thank you for involving us with care of this patient. We will continue to follow. Please call with questions. Attestations Medical Necessity Statement*: Care expected to cross 2 midnights. Coding Level of Care Code Acute Code for Chg Fwd Diagnoses MATTIE (acute kidney injury) N17.9 CHF (congestive heart failure) I50.9 Bradycardia R00.1 Acute hyperkalemia E87.5 Acute hyponatremia E87.1 Sleep apnea G47.30 Mitral stenosis I05.0 Atrial fibrillation I48.91
--- NOTE | 2022-11-23 10:47 | P.PN_ITS ---
Subjective Subjective: Fells better Medications: Reviewed: Yes Vitals/I&O/Wt Last Vital Signs Temp 99 F 11/22/22 20:00 Pulse 78 11/23/22 08:00 Resp 16 11/23/22 08:00 BP 137/44 11/23/22 06:00 Pulse Ox 96 11/23/22 08:00 O2 Del Method Nasal Cannula 11/23/22 08:00 O2 Flow Rate 2 11/23/22 08:00 FiO2 35 11/23/22 06:00 11/22/22 11/23/22 11/23/22 22:59 06:59 14:59 Intake Total 246.4 / 546.4 401 / 947.4 Output Total 700 / 1600 300 / 1900 Balance -453.6 / -1053.6 101 / -952.6 Weight last 48 hrs Weight 119 kg Weight 119 kg Weight 120 kg Physical Exam Narrative: Patient awake , alert , no distress on BiPAP, bradycardic, regular rate and rhythm per report + pedal edema Urinary Catheter Management: Bocanegra: Cath Placed During This Visit: yes Reason for Continuing Indwelling Catheter: Accurate Measurement of Urinary Output in Critically Ill Patients Urinary Catheter Date of Insertion: 11/19/22 Urinary Catheter Time of Insertion: 04:25 Data 11/23/22 04:07 11/23/22 04:07 A&P Assessment and plan (1) Acute hyponatremia: (2) Acute hyperkalemia: Plan 1. Acute on chronic kidney disease: Creatinine baseline in the mid 1 range, now presented with a MATTIE of creatinine 2.7 . patient non oliguric -Agree with holding metolazone. -on IV Lasix, Cr improved to 1.9 today , change lasix to PO 2. Hyperkalemia: Status post med management, 3. Hyponatremia: Sodium 116 on presentation, urine sodium 10 and pending urine osmolality. Na 133 today , s/p 3% saline 4. Acute on chronic respiratory failure: Multifactorial, hypercapnea , volume overload, COPD 5. Bradycardia, holding amiodarone and Cardizem, further management per primary team and cardiology Patient evaluated using audiovisual cart. Time spent 35 minutes Attestations Medical Necessity Statement*: per medicine Coding Level of Care Code Acute Code for [facility] Diagnoses Acute hyponatremia E87.1 Acute hyperkalemia E87.5
[2022-11-23 12:09] LABS: Glucose Point of Care 264 mg/dL (70-110)
[2022-11-23 12:09] LABS: Glucose Point of Care 269 mg/dL (70-110)
[2022-11-23] MEDS: insulin lispro 100 unit/1 mL SUBCUT ×2 (12:31→17:11)
--- NOTE | 2022-11-23 12:45 | PC.NURSE ---
Report called to [facility]. Report given to FERNANDEZ Birght. Blood sgaur 268, pt to received insulin prior to transfer. Fat emulsions due, Pharmacy notified , to be brought up to [facility].
--- NOTE | 2022-11-23 13:10 | PC.NURSE ---
Pt transferred to [id number] via bed. All belongings with pt.
[2022-11-23] MEDS: metroNIDAZOLE 500 MG Tablet PO ×2 (16:18→20:10)
[2022-11-23] MEDS: cefepime 2,000 MG in sodium chloride 0.9% (plus) 50 ML 100 MG IV (16:19)
[2022-11-23 16:42] LABS: Glucose Point of Care 203 mg/dL (70-110)
[2022-11-23 22:11] LABS: Glucose Point of Care 233 mg/dL (70-110)
[2022-11-24] VITALS (15 sets, daily range): BP systolic 118–175; BP diastolic 57–77; PULSE 69–90; RESP 17–23; TEMP 36.3–36.8; O2SAT 92–99; BMI 42.0
[2022-11-24] MEDS: ipratropium-albuterol 3 mL Neb INHALATION ×4 (01:54→20:08)
[2022-11-24 03:51] LABS: Glucose Point of Care 313 mg/dL (70-110)
[2022-11-24] MEDS: AA-Dex 5%-20% w/Lytes 1,000 ML with multivitamin inj 10 ML 32 ML IV (04:08)
--- NOTE | 2022-11-24 05:55 | PM.PN ---
Subjective Subjective: Afebrile Doing well on MedSurg Adequate urine output CBC and BMP is pending for today Hyperglycemia noted I will start patient on insulin sliding scale at home she was taking Toujeo hypoglycemic events resolved Bradycardia improved Blood pressures has improved as well Vitals/I&O/Wt Last Vital Signs Temp 98.3 F 11/24/22 03:49 Pulse 87 11/24/22 03:49 Resp 20 H 11/24/22 03:49 BP 147/67 11/24/22 03:49 Pulse Ox 95 11/24/22 03:49 O2 Del Method BiPAP 11/24/22 03:49 O2 Flow Rate 2 11/23/22 13:10 FiO2 30 11/24/22 03:24 11/23/22 11/23/22 11/24/22 14:59 22:59 06:59 Intake Total 950 / 950 50 / 1000 724.267 / 1724.267 Output Total 1000 / 1000 800 / 1800 Balance -50 / -50 50 / 0 -75.733 / -75.733 Weight last 48 hrs Weight 119 kg Weight 119 kg Weight 120 kg Physical Exam Narrative: Signs of fluid overload improving Patient is much more energetic Able to eat Abdomen soft Passing flatus Lower extremity swelling improving Skin wrinkling noted Hemodynamically stable BiPAP to nasal cannula Urinary Catheter Management: Bocanegra: Cath Placed During This Visit: yes Reason for Continuing Indwelling Catheter: Other Urinary Catheter Date of Insertion: 11/19/22 Urinary Catheter Time of Insertion: 04:25 Data 11/23/22 04:07 11/23/22 04:07 A&P Assessment and plan (1) Melena: (2) Abdominal pain: (3) ATN (acute tubular necrosis): (4) CHF (congestive heart failure): (5) Bradycardia: (6) Acute hyperkalemia: (7) Acute hyponatremia: (8) Acute upper GI bleed: (9) Sleep apnea: (10) Mitral stenosis: (11) Pneumonia: (12) Myelodysplasia (myelodysplastic syndrome): (13) Acute on chronic diastolic (congestive) heart failure: Plan Melanotic stools status post 1 unit PRBC, status post EGD Bradycardia which was reversible secondary to hyperkalemia and AV laura blocking agent clonidine: resolved No signs of significant mesenteric ischemia afebrile no leukocytosis or fever I will continue antibiotics for 1 more day Surgical services signed off no free air evident on x-ray Hypoglycemia: Resolved I will start her on sliding scale for hyperglycemia Poor p.o. intake however it is gradually improving I might be able to discontinue her TPN Full code Diastolic CHF exacerbation continue diuresis ATN: Nonoliguric No need of dialysis Creatinine improving adequate urine output Patient and family not agreeable for retirement placement for now Will request PT Attestations Medical Necessity Statement*: Continue medical management Diagnoses Melena K92.1 Abdominal pain R10.9 ATN (acute tubular necrosis) N17.0 CHF (congestive heart failure) I50.9 Bradycardia R00.1 Acute hyperkalemia E87.5 Acute hyponatremia E87.1 Acute upper GI bleed K92.2 Sleep apnea G47.30 Mitral stenosis I05.0 Pneumonia J18.9 Myelodysplasia (myelodysplastic syndrome) D46.9 Acute on chronic diastolic (congestive) heart failure I50.33
[2022-11-24 06:04] LABS: Basophils % 0.2 %; Eosinophils % 0.2 %; Hematocrit 29.8 % (37.0-47.0); Hemoglobin 8.9 g/dL (11.5-15.3); Lymphocytes # 0.4 10^3/uL (0.8-4.8); Lymphocytes % 8.1 %; Mean Corpuscular HGB Conc 29.9 g/dL (30.0-36.0); Mean Corpuscular Hemoglobin 30.1 pg (28.0-34.0); Mean Corpuscular Volume 100.7 fl (81-99); Mean Platelet Volume 9.2 fL (7.4-10.4); Monocytes # 0.4 10^3/uL (0.2-0.9); Monocytes % 8.1 %; Neutrophils # 3.87 10^3/uL (1.8-7.7); Neutrophils % 82.8 %; Nucleated Red Blood Cells % 0 %; Platelet Count 135 10^3/cmm (130-400); Red Blood Count 2.96 10^6/uL (4.1-5.3); Red Cell Distribution Width 14.7 % (12.1-15.1); White Blood Count 4.7 10^3/uL (4.0-10.0)
[2022-11-24] MEDS: pantoprazole 40 mg SDV IVP ×2 (06:27→18:20)
[2022-11-24 06:28] LABS: Anion Gap 14.2 (5-19); Blood Urea Nitrogen 50 mg/dL (8-23); Carbon Dioxide 32 mmol/L (22-29); Chloride 93 mmol/L (98-107); Glucose 291 mg/dL (65-115); Osmolality Calculated 306 mOsm/kg (285-295); Potassium 3.2 mmol/L (3.5-5.1); Sodium 136 mmol/L (136-145)
[2022-11-24 06:42] LABS: Glucose Point of Care 316 mg/dL (70-110)
[2022-11-24] MEDS: insulin lispro 100 unit/1 mL SUBCUT ×3 (08:30→18:18)
[2022-11-24] MEDS: ciprofloxacin 0.3% Op Soln 2.5 mL Btl 1 DROP EYE-BOTH ×2 (08:30→18:32)
[2022-11-24] MEDS: sucralfate 1 gm/10 mL Oral Liq UDC PO (08:30)
--- NOTE | 2022-11-24 09:01 | PM.PN ---
Subjective Subjective: Patient is doing better. Vitals/I&O/Wt Last Vital Signs Temp 98.1 F 11/24/22 07:57 Pulse 74 11/24/22 08:00 Resp 18 11/24/22 08:00 BP 118/57 11/24/22 07:57 Pulse Ox 95 11/24/22 08:00 O2 Del Method BiPAP 11/24/22 08:00 O2 Flow Rate 2 11/23/22 13:10 FiO2 30 11/24/22 08:00 11/23/22 11/24/22 11/24/22 22:59 06:59 14:59 Intake Total 50 / 1000 724.267 / 1724.267 Output Total 800 / 1800 Balance 50 / 0 -75.733 / -75.733 Weight last 48 hrs Weight 260 lb 8 oz Weight 262 lb 5.601 oz Weight 262 lb 5.601 oz Physical Exam Narrative: GENERAL: Alert NECK: No jugular vein distension. [] HEENT: No cyanosis. No icterus. No pallor. [] HEART: Regular S1 and S2. No murmur, rub or gallop. [] LUNGS: Clear to auscultate bilaterally. [] CENTRAL NERVOUS SYSTEM: Grossly nonfocal. [] EXTREMITIES: Lower extremities with 1+ edema bilaterally. Pulses palpable in the lower extremities, both dorsalis pedis and posterior tibial. [] Urinary Catheter Management: Bocanegra: Cath Placed During This Visit: yes Reason for Continuing Indwelling Catheter: Acute Urinary Retention or Obstruction Urinary Catheter Date of Insertion: 11/19/22 Urinary Catheter Time of Insertion: 04:25 Data 11/25/22 05:12 11/25/22 10:33 A&P Assessment and plan (1) MATTIE (acute kidney injury): (2) CHF (congestive heart failure): (3) Bradycardia: (4) Acute hyperkalemia: (5) Acute hyponatremia: (6) Sleep apnea: (7) Mitral stenosis: (8) Atrial fibrillation: Plan Heart rate is stable. Can consider starting Cardizem. Renal function improving. Thank you for involving us with care of this patient. We will continue to follow. Please call with questions. Attestations Medical Necessity Statement*: Care expected to cross 2 midnights Coding Level of Care Code Acute Code for [facility] Diagnoses MATTIE (acute kidney injury) N17.9 CHF (congestive heart failure) I50.9 Bradycardia R00.1 Acute hyperkalemia E87.5 Acute hyponatremia E87.1 Sleep apnea G47.30 Mitral stenosis I05.0 Atrial fibrillation I48.91
--- NOTE | 2022-11-24 10:56 | PC.SOCIAL ---
Imm update Imm updated with patient at bedside. Copy of page 2 provided. Patient verbalized understanding. Copy in chart initialed, dated and timed.
[2022-11-24 11:22] LABS: Glucose Point of Care 348 mg/dL (70-110)
[2022-11-24 17:16] LABS: Glucose Point of Care 325 mg/dL (70-110)
--- NOTE | 2022-11-24 18:50 | PM.PN ---
Subjective Subjective: feels better Medications: Reviewed: Yes Vitals/I&O/Wt Last Vital Signs Temp 98.1 F 11/24/22 16:00 Pulse 77 11/24/22 16:00 Resp 18 11/24/22 16:00 BP 132/57 11/24/22 16:00 Pulse Ox 98 11/24/22 16:00 O2 Del Method BiPAP 11/24/22 14:00 O2 Flow Rate 2 11/23/22 13:10 FiO2 30 11/24/22 14:15 11/24/22 11/24/22 11/24/22 06:59 14:59 22:59 Intake Total 724.267 / 1724.267 360 / 360 Output Total 800 / 1800 1000 / 1000 Balance -75.733 / -75.733 360 / 360 -1000 / -640 Weight last 48 hrs Weight 118.161 kg Weight 119 kg Weight 119 kg Physical Exam Narrative: Patient awake , alert , no distress , regular rate and rhythm per report + pedal edema Urinary Catheter Management: Bocanegra: Cath Placed During This Visit: yes Reason for Continuing Indwelling Catheter: Acute Urinary Retention or Obstruction Urinary Catheter Date of Insertion: 11/19/22 Urinary Catheter Time of Insertion: 04:25 Data 11/24/22 05:05 11/24/22 05:05 A&P Assessment and plan (1) Acute hyponatremia: (2) Acute hyperkalemia: Plan 1. Acute on chronic kidney disease: Creatinine baseline in the mid 1 range, now presented with a MATTIE of creatinine 2.7 . patient non oliguric -Agree with holding metolazone. -o, Cr improved to 1.5 today , on lasix PO 2. Hyperkalemia: Status post med management, Improved 3. Hyponatremia: Sodium 116 on presentation, urine sodium 10 and pending urine osmolality. Na 136 today , s/p 3% saline 4. Acute on chronic respiratory failure: Multifactorial, hypercapnea , volume overload, COPD 5. Bradycardia, holding amiodarone and Cardizem, further management per primary team and cardiology Patient evaluated using audiovisual cart. Time spent 35 minutes Attestations Medical Necessity Statement*: per medicine Coding Level of Care Code Acute Code for [facility] Diagnoses Acute hyponatremia E87.1 Acute hyperkalemia E87.5
[2022-11-24 20:06] LABS: Glucose Point of Care 254 mg/dL (70-110)
[2022-11-25] VITALS (14 sets, daily range): BP systolic 134–160; BP diastolic 56–79; PULSE 76–109; RESP 16–25; TEMP 36.2–36.8; O2SAT 90–96
[2022-11-25] MEDS: acetaminophen 325 mg Tablet 650 MG PO (00:50)
[2022-11-25] MEDS: ipratropium-albuterol 3 mL Neb INHALATION ×4 (02:54→20:51)
[2022-11-25] MEDS: AA-Dex 5%-20% w/Lytes 1,000 ML with multivitamin inj 10 ML 42 ML IV (04:57)
[2022-11-25] MEDS: pantoprazole 40 mg SDV IVP (05:30)
[2022-11-25 05:49] LABS: Eosinophils % 0.2 %; Hematocrit 30.7 % (37.0-47.0); Hemoglobin 8.9 g/dL (11.5-15.3); Lymphocytes # 0.4 10^3/uL (0.8-4.8); Lymphocytes % 6.6 %; Mean Corpuscular Hemoglobin 29.6 pg (28.0-34.0); Mean Platelet Volume 9.1 fL (7.4-10.4); Monocytes # 0.3 10^3/uL (0.2-0.9); Monocytes % 5.5 %; Neutrophils # 5.07 10^3/uL (1.8-7.7); Neutrophils % 87.4 %; Nucleated Red Blood Cells % 0 %; Platelet Count 129 10^3/cmm (130-400); Red Blood Count 3.01 10^6/uL (4.1-5.3); Red Cell Distribution Width 14.6 % (12.1-15.1); White Blood Count 5.8 10^3/uL (4.0-10.0)
[2022-11-25 06:34] LABS: Glucose Point of Care 376 mg/dL (70-110)
[2022-11-25] MEDS: ciprofloxacin 0.3% Op Soln 2.5 mL Btl 1 DROP EYE-BOTH (08:35)
[2022-11-25] MEDS: sucralfate 1 gm/10 mL Oral Liq UDC PO ×2 (08:35→17:33)
[2022-11-25] MEDS: insulin lispro 100 unit/1 mL SUBCUT ×3 (08:35→17:33)
--- NOTE | 2022-11-25 09:01 | PM.PN ---
Subjective Subjective: c/o not feeling well, no appetite NO labs done today Medications: Reviewed: Yes Vitals/I&O/Wt Last Vital Signs Temp 97.4 F L 11/25/22 07:27 Pulse 109 H 11/25/22 08:17 Resp 20 H 11/25/22 08:16 BP 152/57 11/25/22 07:27 Pulse Ox 93 11/25/22 08:19 O2 Del Method BiPAP 11/25/22 08:19 O2 Flow Rate 2 11/24/22 20:00 FiO2 30 11/25/22 08:19 11/24/22 11/25/22 11/25/22 22:59 06:59 14:59 Intake Total 120 / 480 794.133 / 1274.133 Output Total 1000 / 1000 850 / 1850 Balance -880 / -520 -55.867 / -575.867 Weight last 48 hrs Weight 116.074 kg Weight 118.161 kg Physical Exam Narrative: Patient awake , alert , no distress , regular rate and rhythm per report + pedal edema Urinary Catheter Management: Bocanegra: Cath Placed During This Visit: yes Reason for Continuing Indwelling Catheter: Acute Urinary Retention or Obstruction Urinary Catheter Date of Insertion: 11/19/22 Urinary Catheter Time of Insertion: 04:25 Data 11/25/22 05:12 11/24/22 05:05 A&P Assessment and plan (1) Acute hyponatremia: (2) Acute hyperkalemia: Plan 1. Acute on chronic kidney disease: Creatinine baseline in the mid 1 range, now presented with a MATTIE of creatinine 2.7 . patient non oliguric -Agree with holding metolazone. -o, Cr improved to 1.5, BMP pending today , on lasix PO 2. Hyperkalemia: Status post med management, Improved 3. Hyponatremia: Sodium 116 on presentation, urine sodium 10 and pending urine osmolality. Na 136 , s/p 3% saline 4. Acute on chronic respiratory failure: Multifactorial, hypercapnea , volume overload, COPD 5. Bradycardia, holding amiodarone and Cardizem, further management per primary team and cardiology Patient evaluated using audiovisual cart. Time spent 35 minutes Attestations Medical Necessity Statement*: per medicine Coding Level of Care Code Acute Code for [facility]wd Diagnoses Acute hyponatremia E87.1 Acute hyperkalemia E87.5
[2022-11-25 11:07] LABS: Glucose Point of Care 337 mg/dL (70-110)
[2022-11-25 11:08] LABS: Anion Gap 12.3 (5-19); Blood Urea Nitrogen 43 mg/dL (8-23); Carbon Dioxide 35 mmol/L (22-29); Chloride 96 mmol/L (98-107); Glucose 343 mg/dL (65-115); Osmolality Calculated 314 mOsm/kg (285-295); Potassium 3.3 mmol/L (3.5-5.1); Sodium 140 mmol/L (136-145)
--- NOTE | 2022-11-25 13:46 | PC.OT ---
OT treatment attempted. Pt. states that she is nauseated (nursing is aware) and declines OT treatment for today.
--- NOTE | 2022-11-25 14:10 | P.PN_ITS ---
Subjective Subjective: This patient is agitated not wanting to eat today last time when she used BiPAP for prolonged period of hours she experienced 1 episode of emesis She did understand, able to follow commands I do not see any signs of focal deficits Patient said sorry but I am not able to take off the mask today Vitals/I&O/Wt Last Vital Signs Temp 97.6 F 11/25/22 11:59 Pulse 89 11/25/22 13:18 Resp 16 11/25/22 13:14 BP 148/59 11/25/22 11:59 Pulse Ox 95 11/25/22 13:14 O2 Del Method Nasal Cannula 11/25/22 13:14 O2 Flow Rate 4 11/25/22 13:14 FiO2 30 11/25/22 08:19 11/24/22 11/25/22 11/25/22 22:59 06:59 14:59 Intake Total 120 / 480 794.133 / 1274.133 120 / 120 Output Total 1000 / 1000 850 / 1850 Balance -880 / -520 -55.867 / -575.867 120 / 120 Weight last 48 hrs Weight 116.074 kg Weight 118.161 kg Physical Exam Narrative: This morning patient is on BiPAP Awake and alert Nonfocal neuro exam Able to follow commands I do not see any focal deficits She thinks she will not do well on BiPAP that is why she did not allow me to take her for BiPAP or nasal cannula Signs of fluid load improving Abdominal distended No active complaints No acute or shortness of breath or chest pain S1, S2 Urinary Catheter Management: Bocanegra: Cath Placed During This Visit: yes Reason for Continuing Indwelling Catheter: Acute Urinary Retention or Obstruction Urinary Catheter Date of Insertion: 11/19/22 Urinary Catheter Time of Insertion: 04:25 Data 11/25/22 05:12 11/25/22 10:33 A&P Assessment and plan (1) Melena: (2) ATN (acute tubular necrosis): (3) CHF (congestive heart failure): (4) Bradycardia: (5) Acute hyperkalemia: (6) Acute hyponatremia: (7) Acute upper GI bleed: (8) Sleep apnea: (9) Pulmonary HTN: (10) Mitral stenosis: (11) PAD (peripheral artery disease): (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: Qualifiers: Bone marrow failure anemia type: other bone marrow failure Qualified Code(s): D61.89 - Other specified aplastic anemias and other bone marrow failure syndromes (13) Myelodysplasia (myelodysplastic syndrome): (14) Type 2 diabetes mellitus: Qualifiers: Diabetes mellitus complication status: with hyperglycemia 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: with [facility] use Qualified Code(s): E11.65 - Type 2 diabetes mellitus with hyperglycemia; Z79.4 - detention (current) use of insulin Plan Diastolic CHF: Fluid overload status improving Adequate urine output Hypoxic hypercarbic respiratory failure: Patient requires BiPAP overnight She does have sleep apnea ATN: Resolved Creatinine improved Acute on chronic kidney disease: Resolved creatinine around baseline adequate urine output Hyperkalemia: Resolved Bradycardia related to AV laura blocking agents and hyperkalemia: Resolved Awaiting SNF placement Full code Melodic stool status post EGD which showed hypertensive gastropathy status post 1 unit PRBC hemoglobin stable History of myoplastic dysplastic syndrome Consistent carb diet insulin sliding scale Hyponatremia: Resolved Attestations Medical Necessity Statement*: Awaiting placement Diagnoses Melena K92.1 ATN (acute tubular necrosis) N17.0 CHF (congestive heart failure) I50.9 Bradycardia R00.1 Acute hyperkalemia E87.5 Acute hyponatremia E87.1 Acute upper GI bleed K92.2 Sleep apnea G47.30 Pulmonary HTN I27.20 Mitral stenosis I05.0 PAD (peripheral artery disease) I73.9 Anemia aplastic aregenerative D61.89 Bone marrow failure anemia type: other bone marrow failure Myelodysplasia (myelodysplastic syndrome) D46.9 Type 2 diabetes mellitus E11.65; Z79.4 Diabetes mellitus complication status: with hyperglycemia 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
[2022-11-25 15:08] LABS: Estmated Average Glucose 94; Hemoglobin A1C 4.9 % (4.0-6.0)
[2022-11-25 16:58] LABS: Glucose Point of Care 338 mg/dL (70-110)
--- NOTE | 2022-11-25 17:06 | PM.PN ---
Subjective Subjective: Patient is doing well from cardiac standpoint. Heart rate is stable. Vitals/I&O/Wt Last Vital Signs Temp 98.3 F 11/25/22 16:00 Pulse 98 11/25/22 16:00 Resp 18 11/25/22 16:00 BP 141/79 11/25/22 16:00 Pulse Ox 96 11/25/22 16:00 O2 Del Method Nasal Cannula 11/25/22 16:00 O2 Flow Rate 4 11/25/22 16:00 FiO2 30 11/25/22 08:19 11/25/22 11/25/22 11/25/22 06:59 14:59 22:59 Intake Total 794.133 / 1274.133 120 / 120 Output Total 850 / 1850 Balance -55.867 / -575.867 120 / 120 Weight last 48 hrs Weight 255 lb 14.4 oz Weight 260 lb 8 oz Physical Exam Narrative: GENERAL: Alert NECK: No jugular vein distension. [] HEENT: No cyanosis. No icterus. No pallor. [] HEART: Regular S1 and S2. No murmur, rub or gallop. [] LUNGS: Clear to auscultate bilaterally. [] CENTRAL NERVOUS SYSTEM: Grossly nonfocal. [] EXTREMITIES: Lower extremities with 1+ edema bilaterally. Pulses palpable in the lower extremities, both dorsalis pedis and posterior tibial. [] Urinary Catheter Management: Bocanegra: Cath Placed During This Visit: yes Reason for Continuing Indwelling Catheter: Acute Urinary Retention or Obstruction Urinary Catheter Date of Insertion: 11/19/22 Urinary Catheter Time of Insertion: 04:25 Data 12/05/22 03:50 12/05/22 03:50 A&P Assessment and plan (1) MATTIE (acute kidney injury): (2) CHF (congestive heart failure): (3) Bradycardia: (4) Acute hyperkalemia: (5) Acute hyponatremia: (6) Sleep apnea: (7) Mitral stenosis: (8) Atrial fibrillation: Plan Heart rate has remained stable. Cardizem is OK to use. Cardiology will sign off. Please call with questions. Attestations Medical Necessity Statement*: Care expected to cross 2 midnights. Coding Level of Care Code Acute Code for [facility] Diagnoses MATTIE (acute kidney injury) N17.9 CHF (congestive heart failure) I50.9 Bradycardia R00.1 Acute hyperkalemia E87.5 Acute hyponatremia E87.1 Sleep apnea G47.30 Mitral stenosis I05.0 Atrial fibrillation I48.91
[2022-11-25] MEDS: potassium chloride ER 20 mEq Tablet 40 MEQ PO (17:33)
[2022-11-25] MEDS: insulin glargine 100 units/1 mL 10 UNIT SUBCUT (20:12)
[2022-11-25 22:09] LABS: Glucose Point of Care 387 mg/dL (70-110)
[2022-11-26] VITALS (16 sets, daily range): BP systolic 127–168; BP diastolic 54–73; PULSE 75–102; RESP 17–31; TEMP 36.6–37.6; O2SAT 90–98
[2022-11-26] MEDS: ipratropium-albuterol 3 mL Neb INHALATION ×4 (01:36→21:00)
[2022-11-26] MEDS: AA-Dex 5%-20% w/Lytes 1,000 ML with multivitamin inj 10 ML 42 ML IV (03:43)
[2022-11-26 06:45] LABS: Glucose Point of Care 369 mg/dL (70-110)
[2022-11-26] MEDS: insulin lispro 100 unit/1 mL SUBCUT ×3 (08:27→17:50)
[2022-11-26] MEDS: sucralfate 1 gm/10 mL Oral Liq UDC PO ×2 (08:29→17:50)
[2022-11-26 08:58] LABS: Anion Gap 12.8 (5-19); Blood Urea Nitrogen 41 mg/dL (8-23); Calcium 10.5 mg/dL (8.5-10.5); Carbon Dioxide 36 mmol/L (22-29); Chloride 97 mmol/L (98-107); Glucose 355 mg/dL (65-115); Osmolality Calculated 318 mOsm/kg (285-295); Potassium 3.8 mmol/L (3.5-5.1); Sodium 142 mmol/L (136-145)
--- NOTE | 2022-11-26 09:48 | P.PN_ITS ---
Subjective Subjective: feels better Medications: Reviewed: Yes Vitals/I&O/Wt Last Vital Signs Temp 97.8 F 11/26/22 08:00 Pulse 92 11/26/22 08:00 Resp 18 11/26/22 08:00 BP 166/71 11/26/22 08:00 Pulse Ox 93 11/26/22 08:00 O2 Del Method Room Air 11/26/22 08:00 O2 Flow Rate 4 11/26/22 08:00 FiO2 30 11/26/22 07:34 11/25/22 11/26/22 11/26/22 22:59 06:59 14:59 Intake Total 270 / 390 956.2 / 1346.2 354 / 354 Output Total 1050 / 1050 800 / 1850 Balance -780 / -660 156.2 / -503.8 354 / 354 Weight last 48 hrs Weight 112.99 kg Weight 116.074 kg Physical Exam Narrative: Patient awake , alert , no distress , regular rate and rhythm per report + pedal edema Urinary Catheter Management: Bocanegra: Cath Placed During This Visit: yes Reason for Continuing Indwelling Catheter: Accurate Measurement of Urinary Output in Critically Ill Patients Urinary Catheter Date of Insertion: 11/19/22 Urinary Catheter Time of Insertion: 04:25 Data 11/25/22 05:12 11/26/22 08:11 A&P Assessment and plan (1) Acute hyponatremia: (2) Acute hyperkalemia: Plan 1. Acute on chronic kidney disease: Creatinine baseline in the mid 1 range, now presented with a MATTIE of creatinine 2.7 . patient non oliguric -Agree with holding metolazone. -o, Cr improved to 1.5, lasix on hold due to metabolic alkalosis , will resume 20 mg PO lasix @ DC 2. Hyperkalemia: Status post med management, Improved 3. Hyponatremia: Sodium 116 on presentation, urine sodium 10 and pending urine osmolality. Na 142 , s/p 3% saline 4. Acute on chronic respiratory failure: Multifactorial, hypercapnea , volume overload, COPD 5. Bradycardia, holding amiodarone and Cardizem, further management per primary team and cardiology Patient evaluated using audiovisual cart. Time spent 35 minutes Attestations Medical Necessity Statement*: per medicine Coding Level of Care Code Acute Code for [facility] Fwd Diagnoses Acute hyponatremia E87.1 Acute hyperkalemia E87.5
--- NOTE | 2022-11-26 10:11 | PM.PN ---
Subjective Subjective: Patient this morning is sitting in a chair Eating breakfast Currently on 3 L nasal cannula Lasix on hold due to contraction alkalosis Hemodynamically stable Referral has been sent to [facility] Vitals/I&O/Wt Last Vital Signs Temp 97.8 F 11/26/22 08:00 Pulse 92 11/26/22 08:00 Resp 18 11/26/22 08:00 BP 166/71 11/26/22 08:00 Pulse Ox 93 11/26/22 08:00 O2 Del Method Room Air 11/26/22 08:00 O2 Flow Rate 4 11/26/22 08:00 FiO2 30 11/26/22 07:34 11/25/22 11/26/22 11/26/22 22:59 06:59 14:59 Intake Total 270 / 390 956.2 / 1346.2 354 / 354 Output Total 1050 / 1050 800 / 1850 Balance -780 / -660 156.2 / -503.8 354 / 354 Weight last 48 hrs Weight 112.99 kg Weight 116.074 kg Physical Exam Narrative: Patient sitting in a chair Signs of fluid overload improving Skin wrinkling noted Currently on 3 L Morbidly obese S1, S2 Abdomen soft Nonfocal neuro exam GCS 15 Awake alert x3 Nonfocal neuro Bocanegra catheter in place Urinary Catheter Management: Bocanegra: Cath Placed During This Visit: yes Reason for Continuing Indwelling Catheter: Accurate Measurement of Urinary Output in Critically Ill Patients Urinary Catheter Date of Insertion: 11/19/22 Urinary Catheter Time of Insertion: 04:25 Data 11/25/22 05:12 11/26/22 08:11 A&P Assessment and plan (1) Melena: (2) ATN (acute tubular necrosis): (3) CHF (congestive heart failure): (4) Bradycardia: (5) Acute hyperkalemia: (6) Acute hyponatremia: (7) Acute upper GI bleed: (8) Sleep apnea: (9) Pulmonary HTN: (10) Pulmonary edema: Qualifiers: Chronicity: acute Qualified Code(s): J81.0 - Acute pulmonary edema (11) Type 2 diabetes mellitus: Qualifiers: Diabetes mellitus complication status: with hyperglycemia 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 Protonix along sucralfate Acute on chronic GI blood loss anemia status post 1 unit PRBC hemoglobin stable ATN: Resolved Adequate urine output Electrolyte imbalance resolved Bradycardia resolved Hyperglycemia: Added insulin A1c 4.9 Cultures negative Abdomen soft General surgery signed off Previous urine culture showed E. coli No growth on cultures this time MRSA negative Continue physical therapy DVT prophylaxis Lovenox Attestations Medical Necessity Statement*: Awaiting placement Diagnoses Melena K92.1 ATN (acute tubular necrosis) N17.0 CHF (congestive heart failure) I50.9 Bradycardia R00.1 Acute hyperkalemia E87.5 Acute hyponatremia E87.1 Acute upper GI bleed K92.2 Sleep apnea G47.30 Pulmonary HTN I27.20 Pulmonary edema J81.0 Chronicity: acute Type 2 diabetes mellitus E11.65; Z79.4 Diabetes mellitus complication status: with hyperglycemia Diabetes mellitus longterm insulin use: with longterm use Myelodysplasia (myelodysplastic syndrome) D46.9 Anemia D64.9 Valvular heart disease I38
[2022-11-26] MEDS: enoxaparin 40 mg/0.4 mL Syringe SUBCUT (11:07)
[2022-11-26 11:54] LABS: Glucose Point of Care 353 mg/dL (70-110)
[2022-11-26 16:03] LABS: Glucose Point of Care 417 mg/dL (70-110)
[2022-11-26 17:53] LABS: Glucose Point of Care 401 mg/dL (70-110)
[2022-11-26 20:52] LABS: Glucose Point of Care 300 mg/dL (70-110)
[2022-11-26] MEDS: insulin glargine 100 units/1 mL 10 UNIT SUBCUT (21:08)
--- NOTE | 2022-11-26 21:18 | XRR_ITS ---
PROCEDURE INFORMATION: Exam: XR Chest Exam date and time: 11/26/2022 8:38 PM Age: 82 years old Clinical indication: Shortness of breath and other: Loc; Additional info: Decrease in loc TECHNIQUE: Imaging protocol: Radiologic exam of the chest. Views: 1 view. COMPARISON: CT chest abdpel [id number] 11/20/2022 1:11 PM FINDINGS: Tubes, catheters and devices: Left PICC unchanged. Lungs: Mild venous congestion. Hazy areas of [id number]-left mid to lower lung atelectasis, edema or pneumonia and effusions again seen, mildly increased. Pleural spaces: No pneumothorax. Heart/Mediastinum: The heart is large. Mild venous congestion. Bones/joints: Unremarkable. XR/XR chest 1V portable [id number] IMPRESSION: Slightly progressive lung findings from 1 week ago. No other change.
[2022-11-26 21:35] LABS: ABG PH Result 7.34 (7.35-7.45); Alveolar-Arterial Oxygen Gradi 5.5 mmHg (5-10); Arterial Blood Gas Hematocrit 26.1 % (37-47); Base Excess ABG 13.5 mmol/L (-2.0-2.0); Blood Gas Allen Test Pos; Blood Gas Sample Site Brachial, right; Blood Gas Sample Type Arterial; Carboxyhemoglobin 2.8 %THgb (0.4-20.1); HCO3 ABG 41.2 mmol/L (22-26); HGB O2 Sat 93.8 % (95-100); Ionized Calcium Level - ABG 1.4 mmol/L (1.1-1.4); Methemoglobin 0.3 % (0.4-1.5); Oxygen Device BIPAP; Oxygen Saturation ABG 96.9; PO2 ABG 80.4 mmHg (80.0-100.0); Total Hemoglobin 8.5 g/dL (12-16)
[2022-11-26 21:46] LABS: ABG PCO2 75.8 mmHg (35-45)
[2022-11-26] MEDS: FUROsemide 10 mg/mL SDV 2mL 20 MG IVP (22:47)
[2022-11-27] VITALS (18 sets, daily range): BP systolic 128–172; BP diastolic 57–76; PULSE 60–92; RESP 16–24; TEMP 36.5–36.9; O2SAT 90–98
[2022-11-27] MEDS: ipratropium-albuterol 3 mL Neb INHALATION ×4 (02:51→21:06)
[2022-11-27] MEDS: AA-Dex 5%-20% w/Lytes 1,000 ML with multivitamin inj 10 ML 42 ML IV (03:39)
[2022-11-27 05:14] LABS: Blood Urea Nitrogen 51 mg/dL (8-23); Calcium 10.5 mg/dL (8.5-10.5); Carbon Dioxide 38 mmol/L (22-29); Chloride 99 mmol/L (98-107); Glucose 408 mg/dL (65-115); Osmolality Calculated 325 mOsm/kg (285-295); Sodium 142 mmol/L (136-145)
[2022-11-27 05:15] LABS: Anion Gap 9.1 (5-19); Potassium 4.1 mmol/L (3.5-5.1)
[2022-11-27 06:08] LABS: Glucose Point of Care 444 mg/dL (70-110)
[2022-11-27 08:56] LABS: Glucose Point of Care 477 mg/dL (70-110)
--- NOTE | 2022-11-27 08:58 | PM.PN ---
Subjective Subjective: on BIPAP Medications: Reviewed: Yes Vitals/I&O/Wt Last Vital Signs Temp 97.7 F 11/27/22 04:00 Pulse 79 11/27/22 07:57 Resp 16 11/27/22 07:57 BP 172/76 11/27/22 07:57 Pulse Ox 95 11/27/22 07:57 O2 Del Method BiPAP 11/27/22 07:57 O2 Flow Rate 4 11/26/22 20:00 FiO2 40 11/27/22 07:25 11/26/22 11/27/22 11/27/22 22:59 06:59 14:59 Intake Total 60 / 532 1005.2 / 1537.2 Output Total 350 / 350 Balance 60 / 532 655.2 / 1187.2 Weight last 48 hrs Weight 112.491 kg Weight 112.99 kg Physical Exam Narrative: Patient awake , alert , no distress , regular rate and rhythm per report + pedal edema Urinary Catheter Management: Bocanegra: Cath Placed During This Visit: yes Reason for Continuing Indwelling Catheter: Other Urinary Catheter Date of Insertion: 11/19/22 Urinary Catheter Time of Insertion: 04:25 Data 11/25/22 05:12 11/27/22 04:44 A&P Assessment and plan (1) Acute hyponatremia: (2) Acute hyperkalemia: Plan 1. Acute on chronic kidney disease: Creatinine baseline in the mid 1 range, now presented with a MATTIE of creatinine 2.7 . patient non oliguric -Agree with holding metolazone. -o, Cr improved to 1.3, lasix on hold due to metabolic alkalosis , will resume 20 mg PO lasix @ DC 2. Hyperkalemia: Status post med management, Improved 3. Hyponatremia: Sodium 116 on presentation, urine sodium 10 and pending urine osmolality. Na 142 , s/p 3% saline 4. Acute on chronic respiratory failure: Multifactorial, hypercapnea , volume overload, COPD 5. Bradycardia, holding amiodarone and Cardizem, further management per primary team and cardiology 6. metabolic alkalosis : chronic , compensation for chronic resp acidosis Patient evaluated using audiovisual cart. Time spent 35 minutes Attestations Medical Necessity Statement*: per medicine Coding Level of Care Code Acute Code for [facility] Diagnoses Acute hyponatremia E87.1 Acute hyperkalemia E87.5
[2022-11-27] MEDS: sucralfate 1 gm/10 mL Oral Liq UDC PO ×2 (09:15→17:18)
[2022-11-27] MEDS: pantoprazole DR 40 mg Tablet PO (09:15)
[2022-11-27] MEDS: acetaZOLAMIDE 250 mg Tablet PO (09:16)
[2022-11-27] MEDS: insulin lispro 100 unit/1 mL SUBCUT ×3 (09:28→17:18)
[2022-11-27] MEDS: ciprofloxacin 0.3% Op Soln 2.5 mL Btl 1 DROP EYE-RIGHT ×4 (09:29→21:55)
[2022-11-27 09:33] LABS: ABG PH Result 7.38 (7.35-7.45); Arterial Blood Gas Hematocrit 32.8 % (37-47); Base Excess ABG 13.3 mmol/L (-2.0-2.0); Blood Gas Allen Test Pos; Blood Gas Sample Site Radial, right; Blood Gas Sample Type Arterial; Oxygen Device NC; PO2 ABG 89.1 mmHg (80.0-100.0)
--- NOTE | 2022-11-27 09:43 | PC.NURSE ---
Patient continues to refuse to get up to the chair. I spoke with her and discussed the importance of movement to prevent DVTs, pneumonia, and improve mobility. She initially was refusing, however stated that if she get some medication for nausea, she would get up in an hour. I discussed this with Shiela Christine RN.
[2022-11-27] MEDS: ondansetron 2 mg/ML SDV 2 mL 4 MG IVP (09:56)
--- NOTE | 2022-11-27 11:12 | P.PN_ITS ---
Subjective Subjective: Overnight events noted She was hypoxic, hypercapnic respite failure related to CHF she was given IV Lasix Bicarb 38, this morning pH has improved PCO2 around 70 patient is awake and alert Able to eat She was taken off BiPAP to give her a break to eat breakfast Given acetazolamide today Vitals/I&O/Wt Last Vital Signs Temp 97.7 F 11/27/22 04:00 Pulse 79 11/27/22 07:57 Resp 16 11/27/22 07:57 BP 172/76 11/27/22 07:57 Pulse Ox 95 11/27/22 07:57 O2 Del Method BiPAP 11/27/22 07:57 O2 Flow Rate 4 11/26/22 20:00 FiO2 40 11/27/22 07:25 11/26/22 11/27/22 11/27/22 22:59 06:59 14:59 Intake Total 60 / 532 1005.2 / 1537.2 Output Total 350 / 350 Balance 60 / 532 655.2 / 1187.2 Weight last 48 hrs Weight 112.491 kg Weight 112.99 kg Physical Exam Narrative: Signs of lower lobe present She was given a break from BiPAP to eat, we will start her back on BiPAP Able to follow commands No signs of focal deficit Distended abdomen Congestive heart failure signs with 1+ edema of legs Distended abdomen Assisted bilateral breath sounds with rhonchi and crackles Hemodynamically stable Able to follow commands however lethargic Crusting of eyes noted, conjunctivitis improved Urinary Catheter Management: Bocanegra: Cath Placed During This Visit: yes Reason for Continuing Indwelling Catheter: Other Urinary Catheter Date of Insertion: 11/19/22 Urinary Catheter Time of Insertion: 04:25 Data 11/25/22 05:12 11/27/22 04:44 A&P Assessment and plan (1) Melena: (2) Conjunctivitis: (3) ATN (acute tubular necrosis): (4) CHF (congestive heart failure): (5) Bradycardia: (6) Acute hyponatremia: (7) Acute upper GI bleed: (8) Sleep apnea: (9) Pulmonary HTN: (10) Mitral stenosis: (11) HTN (hypertension): (12) Myelodysplasia (myelodysplastic syndrome): (13) Type 2 diabetes mellitus: Qualifiers: Diabetes mellitus complication status: with hyperglycemia Diabetes mellitus fpc insulin use: with director of accounts receivable use Qualified Code(s): E11.65 - Type 2 diabetes mellitus with hyperglycemia; Z79.4 - court specialist (current) use of insulin (14) Pulmonary edema: Qualifiers: Chronicity: acute Qualified Code(s): J81.0 - Acute pulmonary edema (15) Acute on chronic diastolic (congestive) heart failure: (16) PAD (peripheral artery disease): Plan Acute diastolic CHF exacerbation Currently on BiPAP I will give acetazolamide for contraction alkalosis worsening bicarb noted Acute hypoxic hypercapnic respite failure . Patient gets fluid overloaded and requires BiPAP Because of BiPAP dependency she gets intravascular depleted sodium has been normal Melanotic stools: Improved EGD showed gastritis Status post 1 unit PRBC Pulmonary hypertension mitral valve stenosis recurrent pulm edema, judicious use of diuretics, I will request serial troponin EF is preserved No active chest pain ATN: Resolved Bradycardia: Resolved Hypertension: Optimize antihypertensive regimen Patient was bradycardic and hypotensive that is why her hypertensive regimen was on hold No signs of mesenteric ischemia at this point: Antibiotics course finished Conjunctivitis continue ciprofloxacin Full code Cardiac diet Awaiting placement Patient to use BiPAP every night Attestations Medical Necessity Statement*: Continue medical management Diagnoses Melena K92.1 Conjunctivitis H10.9 ATN (acute tubular necrosis) N17.0 CHF (congestive heart failure) I50.9 Bradycardia R00.1 Acute hyponatremia E87.1 Acute upper GI bleed K92.2 Sleep apnea G47.30 Pulmonary HTN I27.20 Mitral stenosis I05.0 HTN (hypertension) I10 Myelodysplasia (myelodysplastic syndrome) D46.9 Type 2 diabetes mellitus E11.65; Z79.4 Diabetes mellitus complication status: with hyperglycemia Diabetes mellitus director of accounts receivable insulin use: with fpc use Pulmonary edema J81.0 Chronicity: acute Acute on chronic diastolic (congestive) heart failure I50.33 PAD (peripheral artery disease) I73.9
--- NOTE | 2022-11-27 11:15 | ECG_ITS ---
[facility] Test Date: 2022-11-27 Pat Name: Beth Winkler Department: Room: 268 Gender: Female Propagation Manager: : 1940 Requested By: Milla Molina Order Number: [id number] Leila MD: Venu Mccord M.D. Measurements Intervals [place] Rate: 80 P: 72 VA: 145 QRS: 33 QRSD: 90 T: 49 QT: 361 QTc: 417 Interpretive Statements SINUS RHYTHM LOW QRS VOLTAGE IN EXTREMITY LEADS [QRS DEFLECTION < 0.5 mV IN LIMB LEADS] POSSIBLE ANTERIOR MYOCARDIAL INFARCTION , OF INDETERMINATE AGE [30 ms Q WAVE IN V3/V4, OR R < 0.2 mV IN V4] Compared to ECG 11/19/2022 13:56:56 Sinus bradycardia no longer present Myocardial infarct finding still present Electronically Signed On 11-27-2022 22:23:02 CDT by Venu Mccord M.D. [email or web address]/store/[id number]
--- NOTE | 2022-11-27 11:20 | USCV_ITS ---
Beth Winkler Age: 82 Gender: F : 1940 Exam Date: 11/27/2022 15:22 Ordering Phys: Milla Molina MD Technologist: Robi Muniz [place] [facility] [place]ication: Mitral valve stenosis, repeat echo BP: 143 / 83 HR: 78 Rhythm: Sinus Technical Quality: , Technically difficult study MEASUREMENTS (Male / Female) Normal Values 2D ECHO LV Diastolic Diameter PLAX 4.1 cm 4.2 - 5.9 / 3.9 - 5.3 cm LV Systolic Diameter PLAX 2.8 cm IVS Diastolic Thickness 1.4 cm 0.6 - 1.0 / 0.6 - 0.9 cm IVS Systolic Thickness 1.6 cm LVPW Diastolic Thickness 1.4 cm 0.6 - 1.0 / 0.6 - 0.9 cm LVPW Systolic Thickness 1.4 cm LVOT Diameter 2.0 cm LV Ejection Fraction 2D Teich 62.5 % LV Ejection Fraction MOD 2C 64.1 % LV Ejection Fraction 2C AL 64.2 % LA Diameter 4.3 cm M-MODE Aortic Annulus Diameter 2.6 cm LA Ao Ratio MM 1.6 MV E Point Septal Separation 1.0 cm DOPPLER AV Peak Velocity 220.0 cm/s LVOT Peak Velocity 111.0 cm/s AV Area Cont Eq vti 1.5 cm squared AV Area Cont Eq pk 1.6 cm squared MV Peak Velocity 294.0 cm/s MV Area PHT 1.9 cm squared Mitral E to A Ratio 1.5 MV E' Velocity 246.0 cm/s TR Peak Velocity 162.7 cm/s TR Peak Gradient 10.6 mmHg TV Peak E Velocity 67.0 cm/s Right Atrial Pressure 8.0 mmHg Pulmonary Artery Systolic Pressu 18.6 mmHg RV Acceleration Time 0.1 s FINDINGS Left Ventricle Normal left ventricular size, systolic function with no regional wall motion abnormalities. Left ventricular ejection fraction is estimated at 60-65 %. Right Ventricle Normal right ventricular size and systolic function. RVSP could not be calculated due to incomplete tricuspid regurgitation velocity profile. Right Atrium Normal right atrial size. Left Atrium Mildly increased left atrial size. Mitral Valve Severe mitral annular calcification. Thickened mitral valve leaflets. Mild mitral valve stenosis. Mitral valve mean gradient is 10 mmHg. The mitral valve area by pressure half-time is 1.6 cm squared. Peak velocity across the mitral valve was 2.5 m/s Aortic Valve Aortic valve not well visualized. No aortic valve stenosis. No aortic valve regurgitation. Tricuspid Valve Tricuspid valve not well visualized. Pulmonic Valve Pulmonic valve not well visualized. No pulmonary valve stenosis. Pericardium No pericardial effusion. Aorta Normal sized aortic root. IVC Normal IVC dimension with <50% respiratory change of the inferior vena cava. CONCLUSIONS 1. This is a technically difficult study. Optison was used per protocol. 2. Normal left ventricular size, systolic function with no regional wall motion abnormalities. Left ventricular ejection fraction is estimated at 60-65 %. 3. Severe mitral annular calcification. Mild mitral valve stenosis. Mitral valve mean gradient is 10 mmHg. The mitral valve area by pressure half-time is 1.6 cm squared. Peak velocity across the mitral valve was 2.5 m/s 4. When compared to study dated 10/27/2022, there has been no significant change. Letty Chisholm MD (Electronically Signed) Final Date: 28 Nov 2022 07:33 S
[2022-11-27] MEDS: enoxaparin 40 mg/0.4 mL Syringe SUBCUT (11:21)
[2022-11-27 11:25] LABS: ABG PCO2 70.1 mmHg (35-45)
[2022-11-27 11:38] LABS: Glucose Point of Care 410 mg/dL (70-110)
[2022-11-27 12:22] LABS: Troponin(5th) Baseline 111 ng/L (0-10)
[2022-11-27 12:36] LABS: Ketone (Acetest) Serum Negative (Negative)
[2022-11-27] MEDS: insulin regular-human 10 UNIT in SYRINGE 1 EACH IVP (13:13)
--- NOTE | 2022-11-27 13:15 | ECG_ITS ---
[facility] Test Date: 2022-11-27 Pat Name: Beth Winkler Department: Room: 268 Gender: Female Cnc Manager: : 1940 Requested By: Milla Molina Order Number: [id number] Leila MD: Vneu Mccord M.D. Measurements Intervals [place] Rate: 79 P: 56 [place]: 143 QRS: 32 QRSD: 89 T: 53 QT: 362 QTc: 416 Interpretive Statements SINUS RHYTHM WITH SINUS ARRHYTHMIA LOW QRS VOLTAGE IN EXTREMITY LEADS [QRS DEFLECTION < 0.5 mV IN LIMB LEADS] POSSIBLE ANTERIOR MYOCARDIAL INFARCTION , OF INDETERMINATE AGE [30 ms Q WAVE IN V3/V4, OR R < 0.2 mV IN V4] Compared to ECG 11/27/2022 11:38:47 No significant changes Electronically Signed On 11-27-2022 22:42:44 CDT by Venu Mccord M.D. [id number]
[2022-11-27] MEDS: insulin lispro 100 unit/1 mL 10 UNIT SUBCUT (13:19)
[2022-11-27 14:31] LABS: Troponin 5 2HR Delta 0.7 ABS# (0-10)
[2022-11-27 14:32] LABS: Troponin 5 2HR 111.7 ng/L (0-10)
[2022-11-27 15:45] LABS: Glucose Point of Care 403 mg/dL (70-110)
[2022-11-27] MEDS: enoxaparin 80 mg/0.8 mL Syringe 70 MG SUBCUT (16:11)
[2022-11-27] MEDS: insulin regular-human 15 UNIT in SYRINGE 1 EACH IVP (16:13)
--- NOTE | 2022-11-27 16:14 | PC.OT ---
OT attempted treatment visit before lunch; pt. declined treatment.
--- NOTE | 2022-11-27 17:15 | ECG_ITS ---
[facility] Test Date: 2022-11-27 Pat Name: Beth Winkler Department: Room: 268 Gender: Female Swage Toolsetter: : 1940 Requested By: Milla Molina Order Number: [id number] Leila MD: Venu Mccord M.D. Measurements Intervals [place] Rate: 72 P: 27 [place]: 152 QRS: 41 QRSD: 94 T: 45 QT: 391 QTc: 431 Interpretive Statements SINUS RHYTHM WITH OCCASIONAL VENTRICULAR PREMATURE COMPLEXES LOW QRS VOLTAGE IN EXTREMITY LEADS [QRS DEFLECTION < 0.5 mV IN LIMB LEADS] POSSIBLE ANTERIOR MYOCARDIAL INFARCTION , OF INDETERMINATE AGE [30 ms Q WAVE IN V3/V4, OR R < 0.2 mV IN V4] Compared to ECG 11/27/2022 13:17:33 Ventricular premature complex(es) now present Sinus arrhythmia no longer present Myocardial infarct finding still present Electronically Signed On 11-27-2022 22:56:42 CDT by Venu Mccord M.D. [id number]
[2022-11-27 17:20] LABS: Glucose Point of Care 280 mg/dL (70-110)
--- NOTE | 2022-11-27 17:47 | PC.OT ---
OT services withheld this date per nursing request. Patient's blood sugar was 404 around 1600 hours, O2 Sat dropped to 60's with 4 lit per nasal cannula. To attempt on a later date.
[2022-11-27 20:31] LABS: Glucose Point of Care 190 mg/dL (70-110)
[2022-11-27] MEDS: enoxaparin 120 mg/0.8 mL Syringe 110 MG SUBCUT (21:55)
[2022-11-27] MEDS: insulin glargine 100 units/1 mL 20 UNIT SUBCUT (21:55)
[2022-11-27] MEDS: pantoprazole 40 mg SDV IVP (21:58)
[2022-11-28] VITALS (19 sets, daily range): BP systolic 106–163; BP diastolic 35–71; PULSE 70–90; RESP 16–20; TEMP 36.5–37.2; O2SAT 91–100
--- NOTE | 2022-11-28 | ECG_ITS ---
[facility] Test Date: 2022-11-28 Pat Name: Beth Winkler Department: Room: 268 Gender: Female Utilities Ground Worker: : 1940 Requested By: Milla Molina Order Number: [id number] Leila MD: Livan Edwards M.D. Interpretive Statements NAME OF STUDY: LEXISCAN SESTAMIBI STRESS TEST INDICATION: [, ] Procedure: At the baseline, the blood pressure was 143/39 mmHg with a heart rate of 85 bpm. The electrocardiogram showed normal sinus rhythm, normal axis with normal ST and T's. The Lexiscan was infused over a period of 20 seconds. A total of 0.4 mg of Lexiscan was infused. The stress phase was continued for a total of 5 minutes. Heart rate was at the end of stress phase was 85 bpm and a blood pressure of 132/38 mmHg. The EKG at the peak infusion revealed normal sinus rhythm with no significant ST-T wave changes. Sestamibi was injected 20 seconds after the Lexiscan infusion. Blood pressure at the end of recovery phase was 163/35 mmHg with a heart rate of 84 bpm. Conclusion: 1. Normal EKG response to Lexiscan infusion 2. No Lexiscan induced chest pain or cardiac arrhythmia. 3. Normal blood pressure and heart rate response. 4. Sestamibi/sestamibi perfusion scan pending; see separate report. Electronically Signed On 12-19-2022 9:25:14 CDT by Livan Edwards M.D. [email or web address].[employer]/store/OM/[id number]
[2022-11-28] MEDS: ipratropium-albuterol 3 mL Neb INHALATION ×4 (02:32→19:31)
[2022-11-28 03:55] LABS: Basophils % 0.3 %; Eosinophils # 0.1 10^3/uL (0.0-0.8); Eosinophils % 1.2 %; Hematocrit 27.6 % (37.0-47.0); Hemoglobin 7.5 g/dL (11.5-15.3); Lymphocytes # 0.6 10^3/uL (0.8-4.8); Lymphocytes % 9.8 %; Mean Corpuscular HGB Conc 27.2 g/dL (30.0-36.0); Mean Corpuscular Hemoglobin 29.2 pg (28.0-34.0); Mean Corpuscular Volume 107.4 fl (81-99); Mean Platelet Volume 10.4 fL (7.4-10.4); Monocytes # 0.4 10^3/uL (0.2-0.9); Monocytes % 5.8 %; Neutrophils # 4.99 10^3/uL (1.8-7.7); Neutrophils % 82.4 %; Nucleated Red Blood Cells % 0 %; Platelet Count 137 10^3/cmm (130-400); Red Blood Count 2.57 10^6/uL (4.1-5.3); Red Cell Distribution Width 14.5 % (12.1-15.1); White Blood Count 6.1 10^3/uL (4.0-10.0)
[2022-11-28 04:16] LABS: Anion Gap 10.9 (5-19); Blood Urea Nitrogen 60 mg/dL (8-23); Calcium 10.4 mg/dL (8.5-10.5); Carbon Dioxide 38 mmol/L (22-29); Chloride 100 mmol/L (98-107); Glucose 247 mg/dL (65-115); Osmolality Calculated 325 mOsm/kg (285-295); Potassium 3.9 mmol/L (3.5-5.1); Sodium 145 mmol/L (136-145)
--- NOTE | 2022-11-28 06:08 | PM.PN ---
Subjective Subjective: seen after stress test reports her breathing is worse Vitals/I&O/Wt Last Vital Signs Temp 98.5 F 11/28/22 03:58 Pulse 72 11/28/22 03:58 Resp 18 11/28/22 03:58 BP 106/52 11/28/22 03:58 Pulse Ox 95 11/28/22 03:58 O2 Del Method BiPAP 11/28/22 03:58 O2 Flow Rate 4 11/26/22 20:00 FiO2 40 11/28/22 02:34 11/27/22 11/27/22 11/28/22 14:59 22:59 06:59 Intake Total 717.75 / 717.75 Output Total 600 / 600 50 / 650 Balance 117.75 / 117.75 -50 / 67.75 Weight last 48 hrs Weight 112.491 kg Physical Exam Const: OTHER: ill appearing Extremity: GENERAL: Yes edema (left arm) Urinary Catheter Management: Bocanegra: Cath Placed During This Visit: yes Reason for Continuing Indwelling Catheter: Acute Urinary Retention or Obstruction Urinary Catheter Date of Insertion: 11/19/22 Urinary Catheter Time of Insertion: 04:25 Data 11/28/22 08:35 11/28/22 03:17 CT Abd/Pel: Radiologist's impression: 11/20/22 No adrenal mass. Surgical removal of the gallbladder. Mild perinephric stranding around each kidney. No renal obstruction. Echo: Radiologist's impression: Normal left ventricular size, systolic function with no?regional wall motion abnormalities. Left ventricular ejection ?fraction is estimated at 60-65 %. Severe mitral annular calcification. Mild mitral valve?stenosis. Mitral valve mean gradient is 10 mmHg.? The mitral?valve area by pressure half-time is 1.6 cm squared.? Peak velocity?across the mitral valve was 2.5 m/s ABG Interpretation 1: 11/19/22 11/19/22 11/19/22 09:19 12:46 16:09 ABG pH 7.22 L 7.25 L 7.29 L ABG pCO2 71.9 H* 69.3 H* 63.0 H* ABG pO2 69.9 L 71.6 L 84.3 ABG HCO3 29.6 H 30.1 H 30.4 H ABG O2 Saturation 94.2 97.6 ABG Base Excess 0.9 1.7 2.8 H 11/20/22 11/26/22 11/27/22 09:18 21:28 09:22 ABG pH 7.35 7.34 L 7.38 ABG pCO2 57.1 H 75.8 H* 70.1 H* ABG pO2 87.2 80.4 89.1 ABG HCO3 31.6 H 41.2 H 41.0 H ABG O2 Saturation 98.8 96.9 ABG Base Excess 5.0 H 13.5 H 13.3 H My Interpretation: primary respiratory acidosis, metabolic alk Other data: seen via telemedicine with assistance of RN at bedside A&P Assessment and plan (1) CKD (chronic kidney disease) stage 4, GFR 15-29 ml/min: Plan 1. Acute kidney injury 2. Chronic kidney disease 3. Respiratory acidosis, secondary metabolic alkalosis. pH normal 4. Anemia Recommend: consider IVF hydration Attestations Medical Necessity Statement*: per primary service Time Spent in Patient Care: 16 - 35 minutes Coding Level of Care Code Acute Code for Chg Fwd Diagnoses CKD (chronic kidney disease) stage 4, GFR 15-29 ml/min N18.4
[2022-11-28 06:18] LABS: Glucose Point of Care 258 mg/dL (70-110)
[2022-11-28 09:13] LABS: Hematocrit 30.1 % (37.0-47.0); Hemoglobin 8.4 g/dL (11.5-15.3)
--- NOTE | 2022-11-28 10:32 | PM.PN ---
Subjective Subjective: Statin worsening Clinically patient looks dehydrated Hold Lasix for today patient received acetazolamide yesterday Bicarb around 38 Repeat H&H showed hemoglobin 8 no need of blood transfusion Patient has history of myoplastic dysplastic syndrome as well No active melanotic stools Patient is awake and alert Off BiPAP to 2 L Afebrile Stress test is pending, troponin elevated without any active chest pain Hyperglycemia, improved as compared to yesterday Increase the dose of Lantus reluctant to add Premeal insulin because patient has poor p.o. intake and required BiPAP quite often Vitals/I&O/Wt Last Vital Signs Temp 99.0 F 11/28/22 08:00 Pulse 86 11/28/22 08:30 Resp 16 11/28/22 08:30 BP 137/71 11/28/22 08:00 Pulse Ox 97 11/28/22 08:30 O2 Del Method Nasal Cannula 11/28/22 08:30 O2 Flow Rate 3 11/28/22 08:30 FiO2 40 11/28/22 07:36 11/27/22 11/28/22 11/28/22 22:59 06:59 14:59 Intake Total 717.75 / 717.75 Output Total 600 / 600 50 / 650 Balance 117.75 / 117.75 -50 / 67.75 Weight last 48 hrs Weight 112.292 kg Weight 112.491 kg Physical Exam Narrative: Morbidly obese female Awake and alert Currently on 3 L Pleasant and cooperative Hard to assess her volume status but I do believe she is getting dehydrated Lips and mucous membranes are dry Abdomen soft Nonfocal neuro exam Energy better today Not fatigued or lethargic as compared to yesterday Lower extremity venous dermatitis Nonpurulent cellulitis Bocanegra catheter in place S1, S2 Urinary Catheter Management: Bocanegra: Cath Placed During This Visit: yes Reason for Continuing Indwelling Catheter: Acute Urinary Retention or Obstruction Urinary Catheter Date of Insertion: 11/19/22 Urinary Catheter Time of Insertion: 04:25 Data 11/28/22 08:35 11/28/22 03:17 A&P Assessment and plan (1) Conjunctivitis: (2) Melena: (3) ATN (acute tubular necrosis): (4) CHF (congestive heart failure): (5) Bradycardia: (6) Acute hyponatremia: (7) Acute upper GI bleed: (8) Pulmonary HTN: (9) Mitral stenosis: (10) Sleep apnea: (11) NSTEMI (non-ST elevated myocardial infarction): (12) PAD (peripheral artery disease): (13) Acute on chronic diastolic (congestive) heart failure: (14) Myelodysplasia (myelodysplastic syndrome): Plan 82-year-old female who was admitted to ICU for management of acute CHF exacerbation, bradycardia, hyperkalemia, hyponatremia, she was started on dopamine drip that improved her mentation and blood pressure along heart rate, for her hyponatremia she required hypertonic saline, nephrology was consulted, she spent 3 to 4 days in the ICU, graduated to [employer] she also suffered from hypoglycemia because of poor p.o. intake, hemoglobin A1c 4.5, I do believe this is erroneously low because of her myoplastic dysplastic syndrome high white blood cell turnover, she also had melanotic stools for which I requested EGD, it is showing hypertensive erosive gastropathy, required 1 unit PRBC, kidney function, sodium, heart rate and mentation improved however now for last 48 hours I am noticing her kidney function is getting worse because of poor p.o. intake, Lasix is on hold, she is hyperglycemic, very anxious asked for BiPAP frequently throughout the day that contributes to her dehydration as well, nephrology is on board, noticed troponin above 100 started on therapeutic Lovenox she never complained of any chest pain, I am requesting echo with contrast and stress test 11/28 Acute diastolic CHF exacerbation Lasix on hold due to contraction alkalosis Patient received acetazolamide 11/27 Requested echo with contrast Is prone to fluid overload because of multiple conditions such as sleep apnea, pulmonary hypertension, valvular pathology NSTEMI Patient never complained of any chest pain EKG without ischemic changes Started on therapeutic Lovenox along Plavix Because of active gastritis I would not add aspirin at this point I have requested stress test Acute hypercapnic hypoxic respite failure Related to CHF exacerbation Patient has been afebrile No sign of pneumonia Responds very well to BiPAP ATN: Creatinine improved with diuresis Currently creatinine worsening because of dehydration as well Lasix is on hold we will follow-up with nephro recommendations Melanotic stool status post 1 unit PRBC hemoglobin stable EGD showed hypertensive erosive gastritis Bradycardia related to hyperkalemia and use of clonidine amiodarone and AV laura blocking agents: Resolved Hypoglycemia: Resolved currently patient is hyperglycemic required multiple doses of insulin yesterday hemoGlobin A1c 4.5 which could be erroneously low because of MDS Full code Family has been updated Patient will need mcfp placement once stable Currently on dysphagia diet speech therapy is seeing her on daily basis Patient requires BiPAP every night Attestations Medical Necessity Statement*: Continue medical manage Diagnoses Conjunctivitis H10.9 Melena K92.1 ATN (acute tubular necrosis) N17.0 CHF (congestive heart failure) I50.9 Bradycardia R00.1 Acute hyponatremia E87.1 Acute upper GI bleed K92.2 Pulmonary HTN I27.20 Mitral stenosis I05.0 Sleep apnea G47.30 NSTEMI (non-ST elevated myocardial infarction) I21.4 PAD (peripheral artery disease) I73.9 Acute on chronic diastolic (congestive) heart failure I50.33 Myelodysplasia (myelodysplastic syndrome) D46.9
[2022-11-28] MEDS: insulin lispro 100 unit/1 mL SUBCUT ×3 (10:37→18:26)
[2022-11-28] MEDS: clopidogrel 75 mg Tablet PO (10:38)
[2022-11-28] MEDS: sucralfate 1 gm/10 mL Oral Liq UDC PO ×2 (10:38→18:25)
[2022-11-28] MEDS: ciprofloxacin 0.3% Op Soln 2.5 mL Btl 1 DROP EYE-RIGHT ×4 (10:41→22:13)
[2022-11-28] MEDS: pantoprazole 40 mg SDV IVP ×2 (10:52→21:50)
[2022-11-28 11:01] LABS: Glucose Point of Care 417 mg/dL (70-110)
[2022-11-28] MEDS: regadenoson 0.4 Mg/5 ml Syringe IVP (12:39)
--- NOTE | 2022-11-28 13:25 | PC.OT ---
patient is unavailable. has gone for stress test. ot treatment not provided due to inavailabilty of patient.
[2022-11-28 13:55] LABS: Glucose Point of Care 297 mg/dL (70-110)
--- NOTE | 2022-11-28 14:56 | NMCV_ITS ---
NM elsa perf SPECT r/s* [id number] Beth Winkler Age: 82 Gender: F : 1940 Exam Date: 11/28/2022 14:56 Ordering Phys: Milla Molina MD Technologist: BLAS Pedroza Exam Location: [facility] Indications: CHEST PAIN STRESS TEST Please see separate stress test report [facility] for full findings IMAGE PROTOCOL Rest/Stress 1 Lexiscan Day Radiopharmaceutical Dose (mCi) Administration Site Administered by Rest: Tc-99m 11.0 IV Elida Barbosa, [employer] Sestamibi Stress:Tc-99m 33.0 IV Elida Hugorager, [employer] Sestamibi Rest: 28-Nov-2022 60 Discovery 630 Stress: 28-Nov-2022 30 Discovery 630 0.4mg Lexiscan. Supine position only as patient was unable to lay prone. SPECT RESULTS Technical Quality: Poor Raw Data Analysis: Breast attenuation, Soft tissue attenuation Image Corrections: No attenuation or motion correction applied Summed Stress Score: 4 Summed Rest Score: 2 Summed Difference Score: 2 PERFUSION FINDINGS There is patchy areas of decreased tracer uptake in apical septal, apical lateral and mid infero-lateral harman. FUNCTIONAL RESULTS (calculated via Gated SPECT) Stress Image LV EF (%): 72 Stress EDV (mL):61 TID: 0.91 Stress ESV (mL):17 FUNCTIONAL FINDINGS: The left ventricle is normal in size. Transient Ischemia Dilatation of 0.91. The left ventricular ejection fraction is normal with a value of 72%. There is normal left ventricular wall thickening. IMPRESSIONS 1. There is patchy areas of decreased tracer uptake in apical septal, apical lateral and mid infero-lateral harman. This is likely suggestive of attenuation artifact. 2. Overall left ventricular systolic function is normal without regional wall motion abnormalities, LVEF=72%. 3. No coronary ischemia based on this study. Letty Chisholm MD (Electronically Signed) Final Date: 28 Nov 2022 16:33 S
[2022-11-28 16:22] LABS: Glucose Point of Care 240 mg/dL (70-110)
[2022-11-28] MEDS: sodium chloride 0.9% 1,000 ML 30 ML IV (18:25)
[2022-11-28 20:54] LABS: Glucose Point of Care 240 mg/dL (70-110)
[2022-11-28] MEDS: enoxaparin 120 mg/0.8 mL Syringe 110 MG SUBCUT (22:13)
[2022-11-28] MEDS: insulin glargine 100 units/1 mL 20 UNIT SUBCUT (22:13)
[2022-11-29] VITALS (19 sets, daily range): BP systolic 129–148; BP diastolic 65–84; PULSE 69–119; RESP 16–23; TEMP 36.6–36.9; O2SAT 94–100
[2022-11-29] MEDS: ipratropium-albuterol 3 mL Neb INHALATION ×4 (01:13→19:02)
[2022-11-29 06:39] LABS: Glucose Point of Care 196 mg/dL (70-110)
[2022-11-29 07:03] LABS: Basophils % 0.2 %; Eosinophils # 0.1 10^3/uL (0.0-0.8); Eosinophils % 1.1 %; Lymphocytes # 0.4 10^3/uL (0.8-4.8); Lymphocytes % 8.8 %; Mean Corpuscular Hemoglobin 30.6 pg (28.0-34.0); Mean Corpuscular Volume 109.2 fl (81-99); Mean Platelet Volume 10.3 fL (7.4-10.4); Monocytes # 0.3 10^3/uL (0.2-0.9); Monocytes % 7.7 %; Neutrophils # 3.62 10^3/uL (1.8-7.7); Neutrophils % 81.7 %; Nucleated Red Blood Cells % 0 %; Platelet Count 119 10^3/cmm (130-400); Red Blood Count 2.29 10^6/uL (4.1-5.3); Red Cell Distribution Width 14.5 % (12.1-15.1); White Blood Count 4.4 10^3/uL (4.0-10.0)
[2022-11-29 07:14] LABS: Anion Gap 9.4 (5-19); Blood Urea Nitrogen 55 mg/dL (8-23); Calcium 9.3 mg/dL (8.5-10.5); Carbon Dioxide 32 mmol/L (22-29); Chloride 106 mmol/L (98-107); Glucose 162 mg/dL (65-115); Osmolality Calculated 317 mOsm/kg (285-295); Potassium 3.4 mmol/L (3.5-5.1); Sodium 144 mmol/L (136-145)
--- NOTE | 2022-11-29 09:14 | CT_ITS ---
WS: [id number] CT HEAD TECHNIQUE: Noncontrast CT of the head obtained from the skullbase to the vertex. CLINICAL INFORMATION: ams COMPARISON: CT 2018 DLP: 1046.[address] scans at [facility] use at least one of these dose optimization techniques: automated e xposure control; mA and/or kV adjustment per patient size (includes targeted exams where dose is matc hed to clinical indication); or iterative reconstruction. FINDINGS: No evidence of intracranial hemorrhage or mass effect. Ventricular system and basal cisterns are clarke nt. Mild small vessel changes with moderate parenchymal volume loss. No extra-axial fluid collections . No evidence of mass or mass effect. Stable calcified meningioma overlying the LEFT frontal lobe. Paranasal sinuses and mastoid air cells are well aerated. .Normal visualized soft tissues. Normal pos terior nasopharynx. CT/CT head wo con* [id number] IMPRESSION: 1. No evidence of intracranial hemorrhage or mass effect. 2. Mild small vessel changes. Moderate parenchymal volume loss progressed comp ared to previous. 3. Intracranial vascular calcification. 4. Stable calcified 3.2 x 3.1 cm meningioma LEFT frontal lobe. 5. No acute intracranial findings.
[2022-11-29] MEDS: insulin lispro 100 unit/1 mL SUBCUT ×3 (09:51→18:03)
[2022-11-29] MEDS: sucralfate 1 gm/10 mL Oral Liq UDC PO ×2 (09:51→18:04)
[2022-11-29] MEDS: clopidogrel 75 mg Tablet PO (09:51)
[2022-11-29] MEDS: ciprofloxacin 0.3% Op Soln 2.5 mL Btl 1 DROP EYE-RIGHT ×4 (09:51→20:58)
[2022-11-29] MEDS: enoxaparin 120 mg/0.8 mL Syringe 110 MG SUBCUT ×2 (10:12→21:40)
[2022-11-29] MEDS: pantoprazole 40 mg SDV IVP ×2 (10:27→21:11)
[2022-11-29 11:36] LABS: Glucose Point of Care 288 mg/dL (70-110)
--- NOTE | 2022-11-29 13:06 | PM.PN ---
Subjective Subjective: feels weak OOB to chair Vitals/I&O/Wt Last Vital Signs Temp 98.3 F 11/29/22 11:42 Pulse 85 11/29/22 11:42 Resp 18 11/29/22 11:42 BP 140/75 11/29/22 11:42 Pulse Ox 95 11/29/22 11:42 O2 Del Method BiPAP 11/29/22 07:28 O2 Flow Rate 3 11/29/22 08:00 FiO2 35 11/29/22 07:28 11/28/22 11/29/22 11/29/22 22:59 06:59 14:59 Intake Total 240 / 240 Output Total 100 / 550 300 / 850 Balance -100 / -550 -300 / -850 240 / 240 Weight last 48 hrs Weight 112.207 kg Weight 112.292 kg Physical Exam Const: COMMON NORMALS: no acute distress Extremity: GENERAL: Yes edema Urinary Catheter Management: Bocanegra: Cath Placed During This Visit: yes Reason for Continuing Indwelling Catheter: Acute Urinary Retention or Obstruction Urinary Catheter Date of Insertion: 11/19/22 Urinary Catheter Time of Insertion: 04:25 Data 11/29/22 06:48 11/29/22 06:48 Other data: seen via telemedicine with assistance of RN at bedside A&P Assessment and plan (1) CKD (chronic kidney disease) stage 4, GFR 15-29 ml/min: Plan 1. Acute kidney injury, renal function stable 2. Chronic kidney disease 3. Respiratory acidosis, secondary metabolic alkalosis. pH normal 4. Anemia 5. Hypokalemia, replace oral Recommend: check iron studies Attestations Medical Necessity Statement*: per primary service Time Spent in Patient Care: 16 - 35 minutes Coding Level of Care Code Acute Code for Chg Fwd Diagnoses CKD (chronic kidney disease) stage 4, GFR 15-29 ml/min N18.4
[2022-11-29 17:14] LABS: Glucose Point of Care 204 mg/dL (70-110)
[2022-11-29 20:55] LABS: Glucose Point of Care 150 mg/dL (70-110)
[2022-11-29] MEDS: insulin glargine 100 units/1 mL 20 UNIT SUBCUT (20:58)
--- NOTE | 2022-11-29 22:55 | PM.PN ---
Subjective Subjective: Patient denies chest pain, fevers, chills or nausea. Endorses generalized weakness. Medications: Reviewed: Yes Vitals/I&O/Wt Last Vital Signs Temp 98.2 F 11/29/22 19:47 Pulse 104 H 11/29/22 19:47 Resp 21 H 11/29/22 19:47 BP 138/74 11/29/22 19:47 Pulse Ox 96 11/29/22 19:47 O2 Del Method Room Air 11/29/22 19:47 O2 Flow Rate 2.5 11/29/22 14:00 FiO2 35 11/29/22 19:05 11/29/22 11/29/22 11/29/22 06:59 14:59 22:59 Intake Total 240 / 240 Output Total 300 / 850 Balance -300 / -850 240 / 240 Weight last 48 hrs Weight 112.207 kg Weight 112.292 kg Physical Exam Narrative: General: Patient is awake. Frail appearing. Head: Normocephalic. Atraumatic. EOMI. Neck: No JVD. Cardiovascular: RRR. No gallops. No murmurs. BLE edema. Lungs: Breath sounds diminished in bilateral bases, no use of accessory muscles, no crackles or wheezes. Skin: No jaundice. No rashes. Abdomen: Normal bowel sounds, abdomen soft and nontender. Genito Urinary: Genital exam not performed since complaints not related. Rectal: Rectal exam not performed since no symptoms indicated blood loss. Extremities: No cyanosis or clubbing. Musculoskeletal: No overtly deformed joint. Neurological: Moves all 4 extremities. No myoclonus. Urinary Catheter Management: Bocanegra: Cath Placed During This Visit: yes Reason for Continuing Indwelling Catheter: Acute Urinary Retention or Obstruction Urinary Catheter Date of Insertion: 11/19/22 Urinary Catheter Time of Insertion: 04:25 Data 11/29/22 06:48 11/29/22 06:48 A&P Assessment and plan (1) Conjunctivitis: (2) Melena: (3) ATN (acute tubular necrosis): (4) CHF (congestive heart failure): (5) Bradycardia: (6) Acute hyponatremia: (7) Acute upper GI bleed: (8) Pulmonary HTN: (9) Mitral stenosis: (10) Sleep apnea: (11) NSTEMI (non-ST elevated myocardial infarction): (12) PAD (peripheral artery disease): (13) Acute on chronic diastolic (congestive) heart failure: (14) Myelodysplasia (myelodysplastic syndrome): Plan Acute diastolic CHF exacerbation -Holding Lasix -Strict I&Os -Daily weights -Tele NSTEMI considered, less likely given work up, favor myocardial injury -MPS reviewed -D/c Lovenox Acute hypercapnic hypoxic respite failure -Optmize fluid balance -Wean support as tolerated ATN -Nephro following, appreciate reccs Melanotic stool status post 1 unit PRBC hemoglobin stable -HGB downtrending -Repeat labs in AM, may need additional transfusions EGD showed hypertensive erosive gastritis Labile blood glucose -Continue to monitor, adjust regimen as needed Dysphagia -Continue ST Code status: Full Code Attestations Medical Necessity Statement*: Patient requires ongoing hospitalization for medical care, serial labs, transfusions, nephrology expertise, fluid balance management, and supportive care. Coding Level of Care Code Acute Code for Chg Fwd Diagnoses Conjunctivitis H10.9 Melena K92.1 ATN (acute tubular necrosis) N17.0 CHF (congestive heart failure) I50.9 Bradycardia R00.1 Acute hyponatremia E87.1 Acute upper GI bleed K92.2 Pulmonary HTN I27.20 Mitral stenosis I05.0 Sleep apnea G47.30 NSTEMI (non-ST elevated myocardial infarction) I21.4 PAD (peripheral artery disease) I73.9 Acute on chronic diastolic (congestive) heart failure I50.33 Myelodysplasia (myelodysplastic syndrome) D46.9
[2022-11-30] VITALS (20 sets, daily range): BP systolic 106–148; BP diastolic 62–79; PULSE 76–106; RESP 15–21; TEMP 36.7–37.3; O2SAT 82–99
[2022-11-30] MEDS: ipratropium-albuterol 3 mL Neb INHALATION ×4 (01:14→20:57)
[2022-11-30 05:57] LABS: Basophils % 0.4 %; Eosinophils # 0.1 10^3/uL (0.0-0.8); Eosinophils % 1.2 %; Lymphocytes # 0.5 10^3/uL (0.8-4.8); Lymphocytes % 9.7 %; Mean Corpuscular Hemoglobin 29.8 pg (28.0-34.0); Mean Corpuscular Volume 106.4 fl (81-99); Mean Platelet Volume 10.5 fL (7.4-10.4); Monocytes # 0.3 10^3/uL (0.2-0.9); Monocytes % 6.2 %; Neutrophils # 3.97 10^3/uL (1.8-7.7); Neutrophils % 81.9 %; Nucleated Red Blood Cells % 0 %; Platelet Count 160 10^3/cmm (130-400); Red Blood Count 2.35 10^6/uL (4.1-5.3); Red Cell Distribution Width 14.7 % (12.1-15.1); White Blood Count 4.9 10^3/uL (4.0-10.0)
[2022-11-30 06:12] LABS: Glucose Point of Care 241 mg/dL (70-110)
--- NOTE | 2022-11-30 06:25 | PM.PN ---
Subjective Subjective: on Bipap this am no new complaints Vitals/I&O/Wt Last Vital Signs Temp 98.7 F 11/30/22 03:50 Pulse 84 11/30/22 04:00 Resp 18 11/30/22 03:50 BP 118/78 11/30/22 03:50 Pulse Ox 97 11/30/22 04:00 O2 Del Method Room Air 11/30/22 03:50 O2 Flow Rate 2.5 11/29/22 14:00 FiO2 35 11/30/22 04:00 11/29/22 11/29/22 11/30/22 14:59 22:59 06:59 Intake Total 240 / 240 750 / 990 Output Total 800 / 800 200 / 1000 Balance 240 / 240 -800 / -560 550 / -10 Weight last 48 hrs Weight 109.316 kg Weight 112.207 kg Physical Exam Const: COMMON NORMALS: no acute distress Urinary Catheter Management: Bocanegra: Cath Placed During This Visit: yes Reason for Continuing Indwelling Catheter: Acute Urinary Retention or Obstruction Urinary Catheter Date of Insertion: 11/19/22 Urinary Catheter Time of Insertion: 04:25 Data 11/30/22 05:07 11/30/22 07:59 Other Labs: TSAT 29%, SF 177, albumin 3 Other data: seen via telemedicine with assistance of RN at bedside A&P Assessment and plan (1) CKD (chronic kidney disease) stage 4, GFR 15-29 ml/min: Plan 1. Acute kidney injury, renal function stable 2. Chronic kidney disease 3. Respiratory acidosis, secondary metabolic alkalosis. pH normal 4. Anemia, iron appears adequate. consider transfusion pRBC 5. Hypokalemia, resolved Attestations Medical Necessity Statement*: see above Time Spent in Patient Care: 16 - 35 minutes Coding Level of Care Code Acute Code for Chg Fwd Diagnoses CKD (chronic kidney disease) stage 4, GFR 15-29 ml/min N18.4
[2022-11-30 08:28] LABS: Alanine Aminotransferase 12 U/L (0-33); Alkaline Phosphatase 47 U/L (35-105); Aspartate Amino Transferase 17 U/L (0-32); Blood Urea Nitrogen 65 mg/dL (8-23); Calcium 9.7 mg/dL (8.5-10.5); Carbon Dioxide 31 mmol/L (22-29); Chloride 104 mmol/L (98-107); Ferritin 177 ng/mL (15-150); Globulin 2.3 g/dL (1.3-4.6); Glucose 233 mg/dL (65-115); Iron 51 ug/dL (37-145); Osmolality Calculated 322 mOsm/kg (285-295); Percent Saturation 29.1 % (20-50); Sodium 143 mmol/L (136-145); Total Bilirubin 0.3 mg/dL (0.15-1.2); Total Iron Binding Capacity 175 mcg/dl; Total Protein 5.3 g/dL (6.6-8.7); Unsaturated Iron Binding 124 ug/dL (112-347)
[2022-11-30] MEDS: insulin lispro 100 unit/1 mL SUBCUT ×3 (09:40→17:59)
[2022-11-30] MEDS: clopidogrel 75 mg Tablet PO (09:41)
[2022-11-30] MEDS: sucralfate 1 gm/10 mL Oral Liq UDC PO ×2 (09:42→17:59)
[2022-11-30] MEDS: enoxaparin 120 mg/0.8 mL Syringe 40 MG SUBCUT ×2 (09:42→20:02)
[2022-11-30] MEDS: pantoprazole 40 mg SDV IVP ×2 (09:42→20:02)
[2022-11-30] MEDS: ciprofloxacin 0.3% Op Soln 2.5 mL Btl 1 DROP EYE-RIGHT ×4 (09:57→20:01)
[2022-11-30 11:10] LABS: Glucose Point of Care 272 mg/dL (70-110)
--- NOTE | 2022-11-30 12:17 | PC.SOCIAL ---
IMM Updated Updated pt & family on IMM. No questions voiced. Provided pt a copy. Initialed, dated, & timed copy in chart.
[2022-11-30 16:38] LABS: Glucose Point of Care 213 mg/dL (70-110)
--- NOTE | 2022-11-30 19:27 | PM.PN ---
Subjective Subjective: Patient is in bed on the BiPAP. She is lethargic but arouses to stimulation. She refuses to remove the BiPAP. Encourage out of bed to chair and she also refused. Denies fevers, chills, nausea, emesis, shortness of breath, or chest pain. Medications: Reviewed: Yes Vitals/I&O/Wt Last Vital Signs Temp 99.0 F 11/30/22 16:12 Pulse 80 11/30/22 17:55 Resp 18 11/30/22 16:12 BP 138/67 11/30/22 16:12 Pulse Ox 97 11/30/22 17:55 O2 Del Method BiPAP 11/30/22 14:09 O2 Flow Rate 2.5 11/29/22 14:00 FiO2 35 11/30/22 17:55 11/30/22 11/30/22 11/30/22 06:59 14:59 22:59 Intake Total 750 / 990 0 / 0 350 / 350 Output Total 200 / 1000 Balance 550 / -10 0 / 0 350 / 350 Weight last 48 hrs Weight 109.316 kg Weight 112.207 kg Physical Exam Narrative: General: Patient is lethargic but arouses to stimulation. On BiPAP. Head: Normocephalic. Atraumatic. EOMI. Neck: No JVD. Cardiovascular: RRR. No gallops. No murmurs. BLE edema. Lungs: Breath sounds diminished in bilateral bases, no use of accessory muscles, no crackles or wheezes. On BiPAP. Skin: No jaundice. No rashes. Abdomen: Normal bowel sounds, abdomen soft and nontender. Extremities: No cyanosis or clubbing. Musculoskeletal: No overtly deformed joint. Neurological: Moves all 4 extremities. No myoclonus. Urinary Catheter Management: Bocanegra: Cath Placed During This Visit: yes Reason for Continuing Indwelling Catheter: Acute Urinary Retention or Obstruction Urinary Catheter Date of Insertion: 11/19/22 Urinary Catheter Time of Insertion: 04:25 Data 11/30/22 05:07 11/30/22 07:59 A&P Assessment and plan (1) Conjunctivitis: (2) Melena: (3) ATN (acute tubular necrosis): (4) CHF (congestive heart failure): (5) Bradycardia: (6) Acute hyponatremia: (7) Acute upper GI bleed: (8) Pulmonary HTN: (9) Mitral stenosis: (10) Sleep apnea: (11) NSTEMI (non-ST elevated myocardial infarction): (12) PAD (peripheral artery disease): (13) Acute on chronic diastolic (congestive) heart failure: (14) Myelodysplasia (myelodysplastic syndrome): Plan Debility and physical deconditioning -Encourage OOB and coming off BiPAP this afternoon, but pt refused -Continue therapy -Will need post acute care Acute diastolic CHF exacerbation -Holding Lasix -Strict I&Os -Daily weights -Telemetry -Nephro assisting Acute myocardial injury -No chest pain Acute hypercapnic hypoxic respite failure -Optimize fluid balance -Wean support as tolerated -BiPAP while sleeping, prefer off while awake ATN -Nephro following, appreciate reccs Melanotic stool status post 1 unit PRBC hemoglobin stable -HGB still 7, transfuse 1 pRBC EGD showed hypertensive erosive gastritis Labile blood glucose -Continue to monitor, adjust regimen as needed Dysphagia -Continue ST Code status: Full Code Attestations Medical Necessity Statement*: Patient requires ongoing hospitalization for medical care, serial labs, transfusions, nephrology expertise, fluid balance management, and supportive care. Coding Level of Care Code Acute Code for Chg Fwd Diagnoses Conjunctivitis H10.9 Melena K92.1 ATN (acute tubular necrosis) N17.0 CHF (congestive heart failure) I50.9 Bradycardia R00.1 Acute hyponatremia E87.1 Acute upper GI bleed K92.2 Pulmonary HTN I27.20 Mitral stenosis I05.0 Sleep apnea G47.30 NSTEMI (non-ST elevated myocardial infarction) I21.4 PAD (peripheral artery disease) I73.9 Acute on chronic diastolic (congestive) heart failure I50.33 Myelodysplasia (myelodysplastic syndrome) D46.9
[2022-11-30] MEDS: insulin glargine 100 units/1 mL 20 UNIT SUBCUT (20:08)
[2022-11-30 20:47] LABS: Glucose Point of Care 278 mg/dL (70-110)
[2022-11-30 21:11] LABS: Hematocrit 29.3 % (37.0-47.0); Hemoglobin 8.6 g/dL (11.5-15.3)
[2022-12-01] VITALS (17 sets, daily range): BP systolic 113–158; BP diastolic 48–83; PULSE 74–85; RESP 15–26; TEMP 36.4–36.9; O2SAT 95–100
[2022-12-01] MEDS: ipratropium-albuterol 3 mL Neb INHALATION ×4 (01:47→19:50)
[2022-12-01 05:33] LABS: Basophils % 0.4 %; Eosinophils # 0.1 10^3/uL (0.0-0.8); Eosinophils % 1.4 %; Hematocrit 26.3 % (37.0-47.0); Hemoglobin 7.6 g/dL (11.5-15.3); Lymphocytes # 0.6 10^3/uL (0.8-4.8); Lymphocytes % 12.1 %; Mean Corpuscular HGB Conc 28.9 g/dL (30.0-36.0); Mean Corpuscular Hemoglobin 29.7 pg (28.0-34.0); Mean Corpuscular Volume 102.7 fl (81-99); Monocytes # 0.4 10^3/uL (0.2-0.9); Monocytes % 8.5 %; Neutrophils # 3.82 10^3/uL (1.8-7.7); Neutrophils % 76.8 %; Nucleated Red Blood Cells % 0.6 %; Platelet Count 197 10^3/cmm (130-400); Red Blood Count 2.56 10^6/uL (4.1-5.3); Red Cell Distribution Width 16.1 % (12.1-15.1)
[2022-12-01 05:54] LABS: Albumin Level 3.1 g/dL (3.5-5.2); Anion Gap 9.3 (5-19); Blood Urea Nitrogen 68 mg/dL (8-23); Calcium 10.6 mg/dL (8.5-10.5); Carbon Dioxide 35 mmol/L (22-29); Chloride 105 mmol/L (98-107); Glucose 226 mg/dL (65-115); Magnesium 1.8 mg/dL (1.7-2.3); Potassium 3.3 mmol/L (3.5-5.1); Sodium 146 mmol/L (136-145)
[2022-12-01 06:39] LABS: Glucose Point of Care 258 mg/dL (70-110)
--- NOTE | 2022-12-01 07:47 | PM.PN ---
Subjective Subjective: c/o nausea,no pain + loose BMs has scopolamine patch on Vitals/I&O/Wt Last Vital Signs Temp 98.2 F 12/01/22 07:39 Pulse 74 12/01/22 07:39 Resp 19 H 12/01/22 07:39 BP 158/83 12/01/22 07:39 Pulse Ox 98 12/01/22 07:39 O2 Del Method BiPAP 12/01/22 04:00 O2 Flow Rate 3 11/30/22 20:00 FiO2 35 12/01/22 04:00 11/30/22 12/01/22 12/01/22 22:59 06:59 14:59 Intake Total 350 / 350 Output Total 800 / 800 300 / 1100 Balance -450 / -450 -300 / -750 Weight last 48 hrs Weight 109.854 kg Weight 109.316 kg Physical Exam Const: COMMON NORMALS: no acute distress and alert GENERAL APPEARANCE: cooperative Neuro: SENSORIUM/ORIENTATION: Yes alert Urinary Catheter Management: Bocanegra: Cath Placed During This Visit: yes Reason for Continuing Indwelling Catheter: Acute Urinary Retention or Obstruction Urinary Catheter Date of Insertion: 11/19/22 Urinary Catheter Time of Insertion: 04:25 Data 12/01/22 04:58 12/01/22 04:58 Other data: seen via telemedicine with assistance of RN at bedside A&P Assessment and plan (1) CKD (chronic kidney disease) stage 4, GFR 15-29 ml/min: Plan 1. Acute kidney injury, renal function stable 2. Chronic kidney disease 3. Respiratory acidosis, secondary metabolic alkalosis. pH normal 4. Anemia, iron replete, Hb stable 5. Hypokalemia, replace po 6. Hypernatremia, I/O negative, increase water intake Attestations Medical Necessity Statement*: see above Time Spent in Patient Care: 16 - 35 minutes Coding Level of Care Code Acute Code for Chg Fwd Diagnoses CKD (chronic kidney disease) stage 4, GFR 15-29 ml/min N18.4
[2022-12-01] MEDS: insulin lispro 100 unit/1 mL SUBCUT ×3 (08:42→17:33)
[2022-12-01] MEDS: sucralfate 1 gm/10 mL Oral Liq UDC PO ×2 (08:44→17:34)
[2022-12-01] MEDS: ciprofloxacin 0.3% Op Soln 2.5 mL Btl 1 DROP EYE-RIGHT ×4 (08:44→20:10)
[2022-12-01] MEDS: potassium chloride ER 20 mEq Tablet PO (08:44)
[2022-12-01] MEDS: clopidogrel 75 mg Tablet PO (08:44)
[2022-12-01] MEDS: pantoprazole 40 mg SDV IVP ×2 (09:09→20:10)
[2022-12-01 11:20] LABS: Glucose Point of Care 420 mg/dL (70-110)
[2022-12-01 16:23] LABS: Glucose Point of Care 420 mg/dL (70-110)
--- NOTE | 2022-12-01 17:04 | PM.PN ---
Subjective Subjective: Patient is up to bedside chair. Now off BiPAP. She endorses diffuse weakness and pain everywhere. Denies fevers, chills, nausea or emesis. Per report, patient is still having black tarry bowel movements. Medications: Reviewed: Yes Vitals/I&O/Wt Last Vital Signs Temp 97.5 F L 12/01/22 16:00 Pulse 83 12/01/22 16:30 Resp 17 12/01/22 14:00 BP 146/74 12/01/22 16:00 Pulse Ox 98 12/01/22 16:30 O2 Del Method BiPAP 12/01/22 14:00 O2 Flow Rate 3 12/01/22 08:00 FiO2 35 12/01/22 16:30 12/01/22 12/01/22 12/01/22 06:59 14:59 22:59 Intake Total 960 / 960 Output Total 300 / 1100 550 / 550 Balance -300 / -750 960 / 960 -550 / 410 Weight last 48 hrs Weight 109.854 kg Weight 109.316 kg Physical Exam Narrative: General: Patient is awake and alert.? In bedside chair. Head:? Normocephalic. Atraumatic. EOMI. Neck: No JVD. Cardiovascular: RRR. No gallops. No murmurs. BLE edema. Lungs: Breath sounds diminished in bilateral bases, no use of accessory muscles, no crackles or wheezes. Skin: No jaundice. No rashes. Abdomen: Normal bowel sounds, abdomen soft and nontender. Extremities: No cyanosis or clubbing. Musculoskeletal: No overtly deformed joint. Neurological: Moves all 4 extremities. No myoclonus. Urinary Catheter Management: Bocanegra: Cath Placed During This Visit: yes Reason for Continuing Indwelling Catheter: Acute Urinary Retention or Obstruction Urinary Catheter Date of Insertion: 11/19/22 Urinary Catheter Time of Insertion: 04:25 Data 12/01/22 04:58 12/01/22 04:58 A&P Assessment and plan (1) Acute upper GI bleed: A/w melena and acute blood loss anemia S/P EGD revealing hypertensive erosive gastritis Continue IV PPI Trend hemoglobin, transfused 1 pRBC on 11/30 Hold DVT ppx Hold Plavix On aspirin at home for primary prevention, hold for now, consider dc (2) Debility: Encourage OOB Continue therapy Monitor blood counts Correct electrolytes Will need post acute care (3) ATN (acute tubular necrosis): A/W MATTIE on CKD Nephrology following, appreciate recommendations Strict I&Os Daily weights (4) Acute on chronic diastolic (congestive) heart failure: Holding Lasix due to renal function Strict I&Os Daily weights Telemetry (5) Myocardial injury: MPS reviewed Telemetry monitoring (6) Type 2 diabetes mellitus: Labile blood glucose Continue insulin Qualifiers: Diabetes mellitus complication status: with hyperglycemia Diabetes mellitus assistant terminal manager insulin use: with jail use Qualified Code(s): E11.65 - Type 2 diabetes mellitus with hyperglycemia; Z79.4 - [facility] (current) use of insulin (7) Respiratory failure: Continue supplemental oxygen support, wean as tolerated BiPAP while sleeping (8) Sleep apnea: BiPAP while sleeping (9) Dysphagia: Continue speech therapy Plan DVT ppx: Holding Code Status: Full Code Attestations Medical Necessity Statement*: Patient requires ongoing hospitalization for medical care, serial labs, nephrology, fluid balance management, and supportive care. Coding Level of Care Code Acute Code for [facility] Fwd Diagnoses Acute upper GI bleed K92.2 Debility R53.81 ATN (acute tubular necrosis) N17.0 Acute on chronic diastolic (congestive) heart failure I50.33 Myocardial injury I5A Type 2 diabetes mellitus E11.65; Z79.4 Diabetes mellitus complication status: with hyperglycemia Diabetes mellitus jail insulin use: with jail use Respiratory failure J96.90 Sleep apnea G47.30 Dysphagia R13.10
--- NOTE | 2022-12-01 18:00 | PC.SLP ---
MOLDER FOAM RUBBER attempted to work with the pt today. The pt indicated that she was in too much pain. Nursing helping pt back to bed after MOLDER FOAM RUBBER attempt.
[2022-12-01] MEDS: insulin glargine 100 units/1 mL 20 UNIT SUBCUT (20:10)
[2022-12-01 21:20] LABS: Glucose Point of Care 364 mg/dL (70-110)
[2022-12-02] VITALS (17 sets, daily range): BP systolic 125–164; BP diastolic 52–78; PULSE 73–102; RESP 16–27; TEMP 36.3–37.1; O2SAT 92–99
[2022-12-02] MEDS: ipratropium-albuterol 3 mL Neb INHALATION ×4 (01:56→20:45)
[2022-12-02 04:26] LABS: Basophils % 0.4 %; Eosinophils # 0.1 10^3/uL (0.0-0.8); Eosinophils % 1.4 %; Hematocrit 25.2 % (37.0-47.0); Hemoglobin 7.1 g/dL (11.5-15.3); Lymphocytes # 0.5 10^3/uL (0.8-4.8); Lymphocytes % 10.1 %; Mean Corpuscular HGB Conc 28.2 g/dL (30.0-36.0); Mean Corpuscular Hemoglobin 30.1 pg (28.0-34.0); Mean Corpuscular Volume 106.8 fl (81-99); Mean Platelet Volume 9.9 fL (7.4-10.4); Monocytes # 0.4 10^3/uL (0.2-0.9); Monocytes % 8.4 %; Neutrophils % 78.3 %; Nucleated Red Blood Cells % 0.4 %; Platelet Count 199 10^3/cmm (130-400); Red Blood Count 2.36 10^6/uL (4.1-5.3); White Blood Count 4.9 10^3/uL (4.0-10.0)
[2022-12-02 04:52] LABS: Albumin Level 3.2 g/dL (3.5-5.2); Blood Urea Nitrogen 62 mg/dL (8-23); Calcium 10.6 mg/dL (8.5-10.5); Carbon Dioxide 34 mmol/L (22-29); Chloride 102 mmol/L (98-107); Glucose 377 mg/dL (65-115); Magnesium 1.9 mg/dL (1.7-2.3); Sodium 143 mmol/L (136-145)
[2022-12-02 04:54] LABS: Creatinine Clr Calc Pharmacy 40.2341
--- NOTE | 2022-12-02 06:14 | PM.PN ---
Subjective Subjective: still on BiPAP this AM. no new complaints Vitals/I&O/Wt Last Vital Signs Temp 98.2 F 12/02/22 03:30 Pulse 80 12/02/22 04:37 Resp 18 12/02/22 03:30 BP 140/62 12/02/22 03:30 Pulse Ox 98 12/02/22 04:37 O2 Del Method BiPAP 12/02/22 03:30 O2 Flow Rate 3 12/01/22 19:47 FiO2 35 12/02/22 04:37 12/01/22 12/01/22 12/02/22 14:59 22:59 06:59 Intake Total 960 / 960 480 / 1440 Output Total 950 / 950 400 / 1350 Balance 960 / 960 -470 / 490 -400 / 90 Weight last 48 hrs Weight 111.538 kg Weight 109.854 kg Physical Exam Urinary Catheter Management: Bocanegra: Cath Placed During This Visit: yes Reason for Continuing Indwelling Catheter: Acute Urinary Retention or Obstruction Urinary Catheter Date of Insertion: 11/19/22 Urinary Catheter Time of Insertion: 04:25 Data 12/02/22 04:09 12/02/22 04:09 Other Labs: Ca 10.6, phos 1, Mg 1.9 Other data: seen via telemedicine with assistance of RN at bedside A&P Assessment and plan (1) CKD (chronic kidney disease) stage 4, GFR 15-29 ml/min: Plan 1. Acute kidney injury, renal function stable 2. Chronic kidney disease 3. Hypercalcemia, hypophosphatemia. Check PTH, 25(OH)D, replace phos 4. Respiratory acidosis, secondary metabolic alkalosis. pH normal 5. Anemia, iron replete 5. Hypokalemia, resolved 6. Hypernatremia, hyperglycemia, increase insulin and water intake Attestations Medical Necessity Statement*: see above Time Spent in Patient Care: 16 - 35 minutes Coding Level of Care Code Acute Code for Chg Fwd Diagnoses CKD (chronic kidney disease) stage 4, GFR 15-29 ml/min N18.4
[2022-12-02 06:30] LABS: Glucose Point of Care 389 mg/dL (70-110)
[2022-12-02 08:21] LABS: Calcium 10.6 mg/dL (8.5-10.5)
[2022-12-02] MEDS: phosphorus 250 mg Tablet PO ×3 (08:21→20:36)
[2022-12-02] MEDS: insulin lispro 100 unit/1 mL SUBCUT ×3 (08:21→18:08)
[2022-12-02] MEDS: sucralfate 1 gm/10 mL Oral Liq UDC PO ×2 (08:21→18:15)
[2022-12-02] MEDS: ciprofloxacin 0.3% Op Soln 2.5 mL Btl 1 DROP EYE-RIGHT ×4 (08:21→20:38)
[2022-12-02 08:28] LABS: 25 Hydroxy Vitamin D 51 ng/mL (30-100)
[2022-12-02] MEDS: pantoprazole 40 mg SDV IVP ×2 (08:40→20:35)
[2022-12-02 08:42] LABS: Parathyroid Hormone 63.7 pg/mL (15-65)
--- NOTE | 2022-12-02 10:28 | PC.SOCIAL ---
Imm update IMM updated with patient at bedside. Copy of page 2 provided. Patient verbalized understanding. Copy in chart initialed,dated and timed.
--- NOTE | 2022-12-02 10:32 | P.PN_ITS ---
Subjective Subjective: No significant events Vitals/I&O/Wt Last Vital Signs Temp 98.0 F 12/03/22 07:32 Pulse 91 12/03/22 12:00 Resp 17 12/03/22 11:30 BP 143/73 12/03/22 11:30 Pulse Ox 94 12/03/22 12:00 O2 Del Method BiPAP 12/03/22 07:24 O2 Flow Rate 3 12/03/22 08:00 FiO2 35 12/03/22 12:00 12/02/22 12/03/22 12/03/22 22:59 06:59 14:59 Intake Total 226.6667 / 706.6667 480 / 480 Output Total 850 / 850 150 / 150 Balance 226.6667 / 706.6667 -850 / -143.3333 330 / 330 Weight last 48 hrs Weight 108.21 kg Weight 111.538 kg Physical Exam Narrative: Nonfocal neuro exam Currently on BiPAP Abdomen soft Signs of fluid overload improving Able to follow commands Pleasant and cooperative Bocanegra catheter in place Lower extremity swelling No signs of worsening of cellulitis Urinary Catheter Management: Bocanegra: Cath Placed During This Visit: yes Reason for Continuing Indwelling Catheter: Acute Urinary Retention or Obstruction Urinary Catheter Date of Insertion: 11/19/22 Urinary Catheter Time of Insertion: 04:25 Data 12/02/22 19:08 12/03/22 07:49 A&P Assessment and plan (1) Debility: (2) Dysphagia: (3) Respiratory failure: (4) CKD (chronic kidney disease) stage 4, GFR 15-29 ml/min: (5) ATN (acute tubular necrosis): (6) Acute upper GI bleed: (7) Acute hyponatremia: (8) Pulmonary HTN: (9) Myelodysplasia (myelodysplastic syndrome): Plan Patient is awaiting placement She is cleared to be discharged to SNF once gets accepted She should be on BiPAP every time she goes to bed for sleep Acute on chronic kidney disease: Creatinine getting stable ATN: Resolved Hyponatremia: Resolved Full code Low-sodium diet Constipation: Resolved Attestations Medical Necessity Statement*: Continue medical management Coding Level of Care Code 30744 Straight Forward/Low MDM includes number and complexity of problems actively addressed during encounter, amount and/or complexity of data reviewed/ordered and described risk of complication, morbidity or mortality of management as doc umented Diagnoses Debility R53.81 Dysphagia R13.10 Respiratory failure J96.90 CKD (chronic kidney disease) stage 4, GFR 15-29 ml/min N18.4 ATN (acute tubular necrosis) N17.0 Acute upper GI bleed K92.2 Acute hyponatremia E87.1 Pulmonary HTN I27.20 Myelodysplasia (myelodysplastic syndrome) D46.9
[2022-12-02 11:30] LABS: Glucose Point of Care 393 mg/dL (70-110)
[2022-12-02 17:01] LABS: Glucose Point of Care 352 mg/dL (70-110)
[2022-12-02 19:39] LABS: Hematocrit 30.8 % (37.0-47.0); Hemoglobin 8.9 g/dL (11.5-15.3)
[2022-12-02 20:01] LABS: Phosphorus 3.3 mg/dL (2.5-4.5)
[2022-12-02] MEDS: insulin glargine 100 units/1 mL 20 UNIT SUBCUT (20:41)
[2022-12-02 20:47] LABS: Glucose Point of Care 293 mg/dL (70-110)
[2022-12-03] VITALS (16 sets, daily range): BP systolic 139–164; BP diastolic 61–80; PULSE 71–97; RESP 16–23; TEMP 36.4–36.8; O2SAT 94–100; BMI 38.5
[2022-12-03] MEDS: ipratropium-albuterol 3 mL Neb INHALATION ×4 (01:34→21:03)
[2022-12-03 06:31] LABS: Glucose Point of Care 347 mg/dL (70-110)
[2022-12-03] MEDS: phosphorus 250 mg Tablet PO ×3 (07:54→21:01)
[2022-12-03] MEDS: sucralfate 1 gm/10 mL Oral Liq UDC PO (07:54)
[2022-12-03] MEDS: ciprofloxacin 0.3% Op Soln 2.5 mL Btl 1 DROP EYE-RIGHT ×4 (07:54→21:00)
[2022-12-03 08:16] LABS: Alanine Aminotransferase 15 U/L (0-33); Albumin Level 3.3 g/dL (3.5-5.2); Alkaline Phosphatase 45 U/L (35-105); Aspartate Amino Transferase 15 U/L (0-32); Blood Urea Nitrogen 52 mg/dL (8-23); Calcium 10.5 mg/dL (8.5-10.5); Carbon Dioxide 34 mmol/L (22-29); Chloride 102 mmol/L (98-107); Globulin 2.3 g/dL (1.3-4.6); Glucose 301 mg/dL (65-115); Osmolality Calculated 325 mOsm/kg (285-295); Phosphorus 3.1 mg/dL (2.5-4.5); Sodium 145 mmol/L (136-145); Total Bilirubin 0.6 mg/dL (0.15-1.2); Total Protein 5.6 g/dL (6.6-8.7)
[2022-12-03] MEDS: pantoprazole 40 mg SDV IVP ×2 (08:57→21:20)
[2022-12-03] MEDS: insulin lispro 100 unit/1 mL SUBCUT ×3 (10:31→17:04)
[2022-12-03 10:58] LABS: Glucose Point of Care 384 mg/dL (70-110)
--- NOTE | 2022-12-03 12:28 | PM.PN ---
Subjective Subjective: Patient sitting in a chair Off BiPAP Patient is stating that she is feeling sleepy and would like to sleep I have informed the nurse to put her back on BiPAP Creatinine stable This morning had a bowel movement as well Vitals/I&O/Wt Last Vital Signs Temp 98.0 F 12/03/22 07:32 Pulse 91 12/03/22 12:00 Resp 17 12/03/22 11:30 BP 143/73 12/03/22 11:30 Pulse Ox 94 12/03/22 12:00 O2 Del Method BiPAP 12/03/22 07:24 O2 Flow Rate 3 12/03/22 08:00 FiO2 35 12/03/22 12:00 12/02/22 12/03/22 12/03/22 22:59 06:59 14:59 Intake Total 226.6667 / 706.6667 480 / 480 Output Total 850 / 850 150 / 150 Balance 226.6667 / 706.6667 -850 / -143.3333 330 / 330 Weight last 48 hrs Weight 108.21 kg Weight 111.538 kg Physical Exam Narrative: Patient is awake and alert GCS 15 Nonfocal neuro exam Skin wrinkling noted Sign of fluid overload improving Abdomen soft Currently on 2 L nasal cannula Patient is stating that she is feeling sleepy and would like to go to bed Patient ate breakfast this morning as Had a bowel movement as well Urinary Catheter Management: Bocanegra: Cath Placed During This Visit: yes Reason for Continuing Indwelling Catheter: Acute Urinary Retention or Obstruction Urinary Catheter Date of Insertion: 11/19/22 Urinary Catheter Time of Insertion: 04:25 Data 12/02/22 19:08 12/03/22 07:49 A&P Assessment and plan (1) Debility: (2) Dysphagia: (3) Respiratory failure: (4) CKD (chronic kidney disease) stage 4, GFR 15-29 ml/min: (5) ATN (acute tubular necrosis): (6) Acute hyponatremia: (7) Acute upper GI bleed: (8) Pulmonary HTN: (9) Mitral stenosis: (10) Pulmonary edema: Qualifiers: Chronicity: acute Qualified Code(s): J81.0 - Acute pulmonary edema (11) Type 2 diabetes mellitus: Qualifiers: Diabetes mellitus complication status: with hyperglycemia Diabetes mellitus prison insulin use: with superintendent marine oil terminal use Qualified Code(s): E11.65 - Type 2 diabetes mellitus with hyperglycemia; Z79.4 - nursing home (current) use of insulin (12) Myelodysplasia (myelodysplastic syndrome): Plan Upper GI bleed: Resolved Status post 2 unit PRBC ATN: Resolved Hyponatremia: Resolved Hypercapnic hypoxic respite failure required BiPAP during sleep Has severe pulmonary hypertension along MS Diastolic CHF exacerbation: Currently compensated Appreciate nephro recommendations Awaiting placement Full code DVT prophylaxis on board Attestations Medical Necessity Statement*: Awaiting placement Diagnoses Debility R53.81 Dysphagia R13.10 Respiratory failure J96.90 CKD (chronic kidney disease) stage 4, GFR 15-29 ml/min N18.4 ATN (acute tubular necrosis) N17.0 Acute hyponatremia E87.1 Acute upper GI bleed K92.2 Pulmonary HTN I27.20 Mitral stenosis I05.0 Pulmonary edema J81.0 Chronicity: acute Type 2 diabetes mellitus E11.65; Z79.4 Diabetes mellitus complication status: with hyperglycemia Diabetes mellitus prison insulin use: with prison use Myelodysplasia (myelodysplastic syndrome) D46.9
--- NOTE | 2022-12-03 15:00 | PC.OT ---
OT TREATMENT ATTEMPTED; PATIENT ON CPAP AND DECLINES SKILLED OT TREATMENT AT THIS TIME. WILL ATTEMPT AGAIN TOMORROW.
--- NOTE | 2022-12-03 15:08 | PM.PN ---
Subjective Subjective: no new complaints Medications: Reviewed: Yes Vitals/I&O/Wt Last Vital Signs Temp 98.0 F 12/03/22 07:32 Pulse 97 12/03/22 14:15 Resp 16 12/03/22 14:15 BP 143/73 12/03/22 11:30 Pulse Ox 95 12/03/22 14:15 O2 Del Method BiPAP 12/03/22 14:15 O2 Flow Rate 3 12/03/22 08:00 FiO2 35 12/03/22 14:15 12/03/22 12/03/22 12/03/22 06:59 14:59 22:59 Intake Total 1040 / 1040 Output Total 850 / 850 150 / 150 Balance -850 / -143.3333 890 / 890 Weight last 48 hrs Weight 108.21 kg Weight 111.538 kg Physical Exam Urinary Catheter Management: Bocanegra: Cath Placed During This Visit: yes Reason for Continuing Indwelling Catheter: Acute Urinary Retention or Obstruction Urinary Catheter Date of Insertion: 11/19/22 Urinary Catheter Time of Insertion: 04:25 Data 12/02/22 19:08 12/03/22 07:49 A&P Assessment and plan (1) CKD (chronic kidney disease) stage 4, GFR 15-29 ml/min: Plan 1. Acute kidney injury, renal function stable 2. Chronic kidney disease 3. Hypercalcemia, hypophosphatemia. Check PTH, 25(OH)D- normal , replace phos 4. Respiratory acidosis, secondary metabolic alkalosis. pH normal 5. Anemia, iron replete 5. Hypokalemia, resolved 6. Hypernatremia, hyperglycemia, increase insulin and water intake Attestations Medical Necessity Statement*: per medicine Coding Level of Care Code Acute Code for Chg Fwd Diagnoses CKD (chronic kidney disease) stage 4, GFR 15-29 ml/min N18.4
[2022-12-03 16:47] LABS: Glucose Point of Care 391 mg/dL (70-110)
[2022-12-03] MEDS: insulin glargine 100 units/1 mL 20 UNIT SUBCUT (21:00)
[2022-12-03 21:50] LABS: Glucose Point of Care 354 mg/dL (70-110)
[2022-12-04] VITALS (15 sets, daily range): BP systolic 123–154; BP diastolic 58–80; PULSE 76–91; RESP 16–23; TEMP 36.6–36.8; O2SAT 90–99
[2022-12-04] MEDS: ipratropium-albuterol 3 mL Neb INHALATION ×4 (01:52→20:38)
[2022-12-04 07:36] LABS: Glucose Point of Care 342 mg/dL (70-110)
[2022-12-04] MEDS: insulin lispro 100 unit/1 mL SUBCUT ×3 (08:04→18:19)
[2022-12-04] MEDS: ciprofloxacin 0.3% Op Soln 2.5 mL Btl 1 DROP EYE-RIGHT ×2 (08:05→13:03)
[2022-12-04] MEDS: phosphorus 250 mg Tablet PO ×2 (08:05→13:04)
[2022-12-04] MEDS: pantoprazole DR 40 mg Tablet PO (10:15)
--- NOTE | 2022-12-04 12:08 | PC.SOCIAL ---
IMM Updated Updated pt on IMM. No questions voiced. Provided pt a copy. Initialed, dated, & timed copy in chart.
[2022-12-04 12:21] LABS: Glucose Point of Care 383 mg/dL (70-110)
--- NOTE | 2022-12-04 13:02 | PM.PN ---
Subjective Subjective: Patient sitting in a chair Saturating well on BiPAP Vitals/I&O/Wt Last Vital Signs Temp 98 F 12/04/22 12:00 Pulse 80 12/04/22 12:00 Resp 21 H 12/04/22 12:00 BP 135/69 12/04/22 12:00 Pulse Ox 96 12/04/22 12:00 O2 Del Method Nasal Cannula 12/04/22 07:36 O2 Flow Rate 3 12/04/22 08:00 FiO2 35 12/04/22 04:08 12/03/22 12/04/22 12/04/22 22:59 06:59 14:59 Intake Total 100 / 1140 120 / 1260 480 / 480 Output Total 375 / 525 350 / 875 Balance -275 / 615 -230 / 385 480 / 480 Weight last 48 hrs Weight 113.262 kg Weight 108.21 kg Physical Exam Narrative: Awake and alert Signs of fluid overload improving Skin wrinkling noted Currently on BiPAP GCS 15 Able to follow commands Lower 70 swelling improving Abdomen distended however soft GCS 15 S1, S2 Nonfocal neuro exam Urinary Catheter Management: Bocanegra: Cath Placed During This Visit: yes Reason for Continuing Indwelling Catheter: Acute Urinary Retention or Obstruction Urinary Catheter Date of Insertion: 11/19/22 Urinary Catheter Time of Insertion: 04:25 Data 12/02/22 19:08 12/03/22 07:49 A&P Assessment and plan (1) Debility: (2) Dysphagia: (3) CKD (chronic kidney disease) stage 4, GFR 15-29 ml/min: (4) Respiratory failure: (5) ATN (acute tubular necrosis): (6) Bradycardia: (7) Acute hyponatremia: (8) Acute upper GI bleed: (9) Sleep apnea: (10) Mitral stenosis: (11) HTN (hypertension): (12) Pulmonary edema: Qualifiers: Chronicity: acute Qualified Code(s): J81.0 - Acute pulmonary edema (13) Type 2 diabetes mellitus: Qualifiers: Diabetes mellitus complication status: with hyperglycemia Diabetes mellitus skilled nursing insulin use: with skilled nursing use Qualified Code(s): E11.65 - Type 2 diabetes mellitus with hyperglycemia; Z79.4 - group home (current) use of insulin (14) Myelodysplasia (myelodysplastic syndrome): Plan Hyperglycemia related to type 2 diabetes I have asked nurse to change her diet to diabetic , she was getting regular juice in her diet She is on dysphagia diet Hypoxic hypercapnic respiratory failure Currently on BiPAP Patient does well on nasal cannula as well however she asked for BiPAP quite frequently which I think is related to anxiety we do not see any active decomposition signs at this point Bradycardia: Improved Stress test unremarkable ATN: Resolved Hyponatremia: Resolved Hypoglycemia: Resolved Deconditioning related to prolonged hospitalization awaiting fdc placement Hidradenitis suppurativa: I will discontinue Humira Right eye conjunctivitis: Improved discontinue topical antibiotics Appreciate cardiology and nephro recommendations Melanotic stool status post EGD showed gastritis Status post 2 unit PRBC Full code Attestations Medical Necessity Statement*: Continue medical management Diagnoses Debility R53.81 Dysphagia R13.10 CKD (chronic kidney disease) stage 4, GFR 15-29 ml/min N18.4 Respiratory failure J96.90 ATN (acute tubular necrosis) N17.0 Bradycardia R00.1 Acute hyponatremia E87.1 Acute upper GI bleed K92.2 Sleep apnea G47.30 Mitral stenosis I05.0 HTN (hypertension) I10 Pulmonary edema J81.0 Chronicity: acute Type 2 diabetes mellitus E11.65; Z79.4 Diabetes mellitus complication status: with hyperglycemia Diabetes mellitus computer terminal operator insulin use: with computer terminal operator use Myelodysplasia (myelodysplastic syndrome) D46.9
--- NOTE | 2022-12-04 13:56 | PC.OT ---
Patient refused OT services. Therapist asked if patient wanted to participate in ADLs or light UE exercises and patient continued to refuse tx. Patient requested to be moved back to bed, therapist relayed message to nursing staff.
[2022-12-04 17:59] LABS: Glucose Point of Care 362 mg/dL (70-110)
--- NOTE | 2022-12-04 19:41 | PM.PN ---
Subjective Subjective: no new complaints Medications: Reviewed: Yes Vitals/I&O/Wt Last Vital Signs Temp 98 F 12/04/22 12:00 Pulse 85 12/04/22 16:00 Resp 18 12/04/22 16:00 BP 133/75 12/04/22 16:00 Pulse Ox 95 12/04/22 16:00 O2 Del Method Nasal Cannula 12/04/22 13:39 O2 Flow Rate 3 12/04/22 13:39 FiO2 35 12/04/22 04:08 12/04/22 12/04/22 12/04/22 06:59 14:59 22:59 Intake Total 120 / 1260 720 / 720 Output Total 350 / 875 Balance -230 / 385 720 / 720 Weight last 48 hrs Weight 113.262 kg Weight 108.21 kg Physical Exam Urinary Catheter Management: Bocanegra: Cath Placed During This Visit: yes Reason for Continuing Indwelling Catheter: Other Urinary Catheter Date of Insertion: 11/19/22 Urinary Catheter Time of Insertion: 04:25 Data 12/02/22 19:08 12/03/22 07:49 A&P Assessment and plan (1) CKD (chronic kidney disease) stage 4, GFR 15-29 ml/min: Plan 1. Acute kidney injury, renal function stable 2. Chronic kidney disease 3. Hypercalcemia, hypophosphatemia. Check PTH, 25(OH)D- normal , replace phos 4. Respiratory acidosis, secondary metabolic alkalosis. pH normal 5. Anemia, iron replete 5. Hypokalemia, resolved 6. Hypernatremia, hyperglycemia, increase insulin and water intake BMP pending today Attestations Medical Necessity Statement*: per medicine Coding Level of Care Code Acute Code for Chg Fwd Diagnoses CKD (chronic kidney disease) stage 4, GFR 15-29 ml/min N18.4
[2022-12-04 21:59] LABS: Glucose Point of Care 273 mg/dL (70-110)
[2022-12-04] MEDS: insulin glargine 100 units/1 mL 20 UNIT SUBCUT (22:08)
[2022-12-05] VITALS (18 sets, daily range): BP systolic 136–164; BP diastolic 53–71; PULSE 73–86; RESP 16–26; TEMP 36.3–36.9; O2SAT 92–100
[2022-12-05] MEDS: ipratropium-albuterol 3 mL Neb INHALATION ×4 (02:52→20:59)
[2022-12-05 04:41] LABS: Basophils % 0.7 %; Eosinophils # 0.1 10^3/uL (0.0-0.8); Eosinophils % 1.4 %; Hematocrit 30.2 % (37.0-47.0); Hemoglobin 8.6 g/dL (11.5-15.3); Lymphocytes # 0.4 10^3/uL (0.8-4.8); Mean Corpuscular HGB Conc 28.5 g/dL (30.0-36.0); Mean Corpuscular Hemoglobin 28.7 pg (28.0-34.0); Mean Corpuscular Volume 100.7 fl (81-99); Mean Platelet Volume 9.6 fL (7.4-10.4); Monocytes # 0.4 10^3/uL (0.2-0.9); Monocytes % 8.4 %; Neutrophils # 3.45 10^3/uL (1.8-7.7); Neutrophils % 78.8 %; Nucleated Red Blood Cells % 0.7 %; Platelet Count 200 10^3/cmm (130-400); Red Cell Distribution Width 17.3 % (12.1-15.1); White Blood Count 4.4 10^3/uL (4.0-10.0)
[2022-12-05 05:13] LABS: Anion Gap 11.7 (5-19); Blood Urea Nitrogen 39 mg/dL (8-23); Calcium 10.5 mg/dL (8.5-10.5); Carbon Dioxide 36 mmol/L (22-29); Chloride 102 mmol/L (98-107); Glucose 241 mg/dL (65-115); Osmolality Calculated 319 mOsm/kg (285-295); Potassium 3.7 mmol/L (3.5-5.1); Sodium 146 mmol/L (136-145)
[2022-12-05 06:57] LABS: Glucose Point of Care 280 mg/dL (70-110)
[2022-12-05] MEDS: insulin lispro 100 unit/1 mL SUBCUT ×3 (08:35→16:57)
[2022-12-05] MEDS: pantoprazole DR 40 mg Tablet PO (08:35)
--- NOTE | 2022-12-05 09:51 | PM.PN ---
Subjective Subjective: no new complaints Medications: Reviewed: Yes Vitals/I&O/Wt Last Vital Signs Temp 98.1 F 12/05/22 08:00 Pulse 76 12/05/22 08:00 Resp 20 H 12/05/22 08:00 BP 164/71 12/05/22 08:00 Pulse Ox 97 12/05/22 08:00 O2 Del Method BiPAP 12/05/22 08:00 O2 Flow Rate 3 12/05/22 08:00 FiO2 35 12/05/22 04:00 12/04/22 12/05/22 12/05/22 22:59 06:59 14:59 Intake Total 150 / 870 100 / 970 480 / 480 Output Total 300 / 300 Balance 150 / 870 -200 / 670 480 / 480 Weight last 48 hrs Weight 112.355 kg Weight 113.262 kg Physical Exam Urinary Catheter Management: Bocanegra: Cath Placed During This Visit: yes Reason for Continuing Indwelling Catheter: Other Urinary Catheter Date of Insertion: 11/19/22 Urinary Catheter Time of Insertion: 04:25 Data 12/05/22 03:50 12/05/22 03:50 A&P Assessment and plan (1) CKD (chronic kidney disease) stage 4, GFR 15-29 ml/min: Plan 1. Acute kidney injury, renal function stable 2. Chronic kidney disease 3. Hypercalcemia, hypophosphatemia. PTH, 25(OH)D- normal , replace phos 4. Respiratory acidosis, secondary metabolic alkalosis. pH normal 5. Anemia, iron replete 5. Hypokalemia, resolved 6. Hypernatremia, hyperglycemia, increase insulin and water intake BMP pending today Attestations Medical Necessity Statement*: per medicine Coding Level of Care Code Acute Code for Chg Fwd Diagnoses CKD (chronic kidney disease) stage 4, GFR 15-29 ml/min N18.4
--- NOTE | 2022-12-05 09:54 | P.PN_ITS ---
Subjective Subjective: Awaiting placement I discontinued BiPAP put her on 3 L nasal cannula Patient is awake and alert no active complaints Vitals/I&O/Wt Last Vital Signs Temp 98.1 F 12/05/22 08:00 Pulse 76 12/05/22 08:00 Resp 20 H 12/05/22 08:00 BP 164/71 12/05/22 08:00 Pulse Ox 97 12/05/22 08:00 O2 Del Method BiPAP 12/05/22 08:00 O2 Flow Rate 3 12/05/22 08:00 FiO2 35 12/05/22 04:00 12/04/22 12/05/22 12/05/22 22:59 06:59 14:59 Intake Total 150 / 870 100 / 970 480 / 480 Output Total 300 / 300 Balance 150 / 870 -200 / 670 480 / 480 Weight last 48 hrs Weight 112.355 kg Weight 113.262 kg Physical Exam Narrative: Clinical signs of dehydration Significantly noted Skin mucous membranes are dry S1, S2 variable Abdomen soft distended Lower extremity venous stasis dermatitis with trace edema, no signs of worsening of cellulitis GCS 15 Nonfocal neuro exam Currently on 3 L Urinary Catheter Management: Bocanegra: Cath Placed During This Visit: yes Reason for Continuing Indwelling Catheter: Other Urinary Catheter Date of Insertion: 11/19/22 Urinary Catheter Time of Insertion: 04:25 Data 12/05/22 03:50 12/05/22 03:50 A&P Assessment and plan (1) Debility: (2) CKD (chronic kidney disease) stage 4, GFR 15-29 ml/min: (3) ATN (acute tubular necrosis): (4) Bradycardia: (5) Acute hyponatremia: (6) Acute upper GI bleed: (7) Sleep apnea: (8) Pulmonary HTN: (9) Mitral stenosis: (10) HTN (hypertension): (11) Pulmonary edema: Qualifiers: Chronicity: acute Qualified Code(s): J81.0 - Acute pulmonary edema (12) Type 2 diabetes mellitus: Qualifiers: Diabetes mellitus complication status: with hyperglycemia Diabetes mellitus termite exterminator insulin use: with termite exterminator use Qualified Code(s): E11.65 - Type 2 diabetes mellitus with hyperglycemia; Z79.4 - oysterman (current) use of insulin (13) Myelodysplasia (myelodysplastic syndrome): (14) PAD (peripheral artery disease): Plan Hypernatremia related to poor p.o. intake Patient is stating that she would try to drink more fluid Encouraged and counseled on better p.o. intake today She has low threshold to use BiPAP, she should only use BiPAP at night Diastolic CHF: Compensated ATN: Resolved Bradycardia: Resolved Hyperglycemia, diet changed, currently on sliding scale along with Lantus Melanotic stool: Stable hemoglobin stable History of MDS Awaiting placement Full code Dysphagia diet Attestations Medical Necessity Statement*: Continue medical management Diagnoses Debility R53.81 CKD (chronic kidney disease) stage 4, GFR 15-29 ml/min N18.4 ATN (acute tubular necrosis) N17.0 Bradycardia R00.1 Acute hyponatremia E87.1 Acute upper GI bleed K92.2 Sleep apnea G47.30 Pulmonary HTN I27.20 Mitral stenosis I05.0 HTN (hypertension) I10 Pulmonary edema J81.0 Chronicity: acute Type 2 diabetes mellitus E11.65; Z79.4 Diabetes mellitus complication status: with hyperglycemia Diabetes mellitus termite exterminator insulin use: with termite exterminator use Myelodysplasia (myelodysplastic syndrome) D46.9 PAD (peripheral artery disease) I73.9
[2022-12-05 11:00] LABS: Estmated Average Glucose 108; Hemoglobin A1C 5.4 % (4.0-6.0)
[2022-12-05 11:51] LABS: Glucose Point of Care 284 mg/dL (70-110)
[2022-12-05 16:33] LABS: Glucose Point of Care 148 mg/dL (70-110)
[2022-12-05] MEDS: insulin glargine 100 units/1 mL 20 UNIT SUBCUT (21:18)
[2022-12-05 22:07] LABS: Glucose Point of Care 170 mg/dL (70-110)
[2022-12-06] VITALS (11 sets, daily range): BP systolic 134–150; BP diastolic 51–62; PULSE 70–80; RESP 16–22; TEMP 36.5–36.7; O2SAT 93–98
[2022-12-06] MEDS: ipratropium-albuterol 3 mL Neb INHALATION ×2 (02:19→08:00)
[2022-12-06 07:19] LABS: Glucose Point of Care 151 mg/dL (70-110)
[2022-12-06] MEDS: insulin lispro 100 unit/1 mL SUBCUT (08:39)
[2022-12-06] MEDS: sucralfate 1 gm/10 mL Oral Liq UDC PO (08:40)
[2022-12-06] MEDS: pantoprazole DR 40 mg Tablet PO (08:40)
--- NOTE | 2022-12-06 09:42 | PM.PN ---
Subjective Subjective: No new complaints Medications: Reviewed: Yes Vitals/I&O/Wt Last Vital Signs Temp 97.8 F 12/06/22 08:00 Pulse 70 12/06/22 08:01 Resp 20 H 12/06/22 08:00 BP 137/51 12/06/22 08:00 Pulse Ox 93 12/06/22 08:00 O2 Del Method BiPAP 12/06/22 08:00 O2 Flow Rate 3 12/05/22 13:16 FiO2 35 12/06/22 07:59 12/05/22 12/06/22 12/06/22 22:59 06:59 14:59 Intake Total 120 / 1080 240 / 240 Output Total 750 / 750 250 / 1000 Balance -630 / 330 -250 / 80 240 / 240 Weight last 48 hrs Weight 111.811 kg Weight 112.355 kg Physical Exam Urinary Catheter Management: Bocanegra: Cath Placed During This Visit: yes Reason for Continuing Indwelling Catheter: Other Urinary Catheter Date of Insertion: 11/19/22 Urinary Catheter Time of Insertion: 04:25 Data 12/05/22 03:50 12/05/22 03:50 A&P Assessment and plan (1) CKD (chronic kidney disease) stage 4, GFR 15-29 ml/min: Plan 1. Acute kidney injury, renal function stable 2. Chronic kidney disease 3. Hypercalcemia, hypophosphatemia. PTH, 25(OH)D- normal , replace phos 4. Respiratory acidosis, secondary metabolic alkalosis. pH normal 5. Anemia, iron replete 5. Hypokalemia, resolved 6. Hypernatremia, hyperglycemia, increase insulin and water intake BMP pending today Attestations Medical Necessity Statement*: per medicine Coding Level of Care Code Acute Code for Chg Fwd Diagnoses CKD (chronic kidney disease) stage 4, GFR 15-29 ml/min N18.4
--- NOTE | 2022-12-06 10:00 | PC.NURSE ---
PICC Line removed intact. Patient tolerated well. Site cleansed with alcohol. No bleeding noted. Pressure dressing applied.
--- NOTE | 2022-12-06 10:30 | PM.DCS ---
Discharge Providers Date of Admission: 11/19/22 03:32 Date of Discharge: December 06, 2022 Attending Provider at Admission: Agnes Hackett MD Attending Provider at Discharge: Milla Molina MD Primary Care Provider: Deep Angeles DO Diagnoses at Discharge Discharge Diagnosis (1) CKD (chronic kidney disease) stage 4, GFR 15-29 ml/min: Status: Acute Reason for Visit Reason for Visit: FALL Hospital Course Hospital Course 82-year-old female who was admitted to ICU for management of acute D-CHF exacerbation, bradycardia, hyperkalemia, hyponatremia, she was started on dopamine drip that improved her mentation and blood pressure along heart rate, for her hyponatremia she required hypertonic saline, nephrology was consulted, she spent 3 to 4 days in the ICU, graduated to [facility], she also suffered from hypoglycemia because of poor p.o. 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 intake, Lasix is on hold, she is hyperglycemic, during this hospitalization she also had myocardial perfusion imaging for leakage of troponin she never complained of any chest pain, stress test was unremarkable, preserved ejection fraction heart failure, Her glucose at the time of discharge 151 Patient will require BiPAP every night she seems to have sleep apnea which contributes towards her anxiety and nocturnal hypoxemia, during the daytime she requires 3 L of oxygen Currently she is euvolemic with skin wrinkling around her arms eyes mouth and legs She will be considered high risk for readmissions because of her anxiety, diastolic CHF exacerbation, poor p.o. intake and noncompliance For her intertrigo I will give her miconazole powder, she does complain of pruritic skin which is related to dryness Bocanegra catheter and PICC line will be removed before discharge, PICC line was placed for TPN when she was dependent on BiPAP initial Right eye conjunctivitis: Improved with ciprofloxacin eyedrops Diet: Dysphagia level 6 soft and bite-size consistent carb diet A-fib: Not a candidate for anticoagulation because of GI bleed history of blood transfusion, continue Cardizem Full code Change in medication at the time of discharge I would stop clonidine She has not received amiodarone during hospitalization, will discharge her on diltiazem 120 mg extended release She may continue Creon Lasix 40 mg daily with potassium supplement, discontinue metolazone Patient was taking adalimumab for her hidradenitis suppurativa which I am going to hold until her discharge from the correction Physical Exam Narrative: Euvolemic Full code GCS 15 Nonfocal neuro exam Abdomen soft Currently on 3 L Awake and alert Right eye conjunctivitis improved Lower extremity edema improved S1, S2 Urinary Catheter Management: Bocanegra: Cath Placed During This Visit: yes Reason for Continuing Indwelling Catheter: Other Urinary Catheter Date of Insertion: 11/19/22 Urinary Catheter Time of Insertion: 04:25 Discharge Data Studies Completed and Pending Completed Studies During Hospitalization Category Date Time Status CT chest abdomen pelvis [[place] [id number] Cat Scan 11/20/22 11:34 Completed ] Routine CT head wo con* [id number] Routine Cat Scan 11/29/22 09:14 Completed Sestamibi Stress Test Request Routine Exams 11/28/22 06:26 Draft XR acute abdomen series [id number] Routine Exams 11/21/22 13:28 Completed XR chest 1V portable [id number] Stat Exams 11/18/22 23:09 Completed XR chest 1V portable [id number] Stat Exams 11/19/22 08:52 Completed XR chest 1V portable [id number] Stat Exams 11/26/22 21:18 Completed NM elsa perf SPECT r/s* [id number] Routine Nuc Med 11/28/22 14:56 Completed Pathology: Surgical [PTH] Routine Pth 11/22/22 11:00 Completed CV. echo wo/w contrast [id number] Routine Ultrasound 11/27/22 11:20 Completed Pending at discharge Category Date Time Status Sestamibi Stress Test Request Routine Exams 11/27/22 14:56 Stop Req Radiology Impressions Chest/Abdomen/Pelvis CT 11/20/22 11:34 IMPRESSION: 1. Small bilateral pleural effusions with compressive atelectasis at the lung bases. 2. Mild pulmonary edema. No pneumonia. 3. There are 2 foci of air within the peritoneal cavity which cannot definitely be placed within the lumen of the GI tract. Suspicious for free air. There is also a single abnormal loop of GI tract in the RIGHT lower quadrant which may be ischemic. 4. New small amount of ascites since the prior study. 5. Prior cholecystectomy, appendectomy and hysterectomy. Notified Milla Molina MD at 11/20/2022 2:15 PM. Message left on answering service. Chest/Abdomen X-ray 11/21/22 13:28 Impression: 1. Patchy opacity in right lower lobe with right pleural effusion unchanged. 2. Negative for free air. 3.. Probable subcutaneous abdominal wall edema or ascites. Chest X-Ray 11/26/22 21:18 IMPRESSION: Slightly progressive lung findings from 1 week ago. No other change. Head CT 11/29/22 09:14 IMPRESSION: 1. No evidence of intracranial hemorrhage or mass effect. 2. Mild small vessel changes. Moderate parenchymal volume loss progressed compared to previous. 3. Intracranial vascular calcification. 4. Stable calcified 3.2 x 3.1 cm meningioma LEFT frontal lobe. 5. No acute intracranial findings. Laboratory Results WBC 4.4 10^3/uL (4.0-10.0) 12/05/22 03:50 RBC 3.00 10^6/uL (4.1-5.3) L 12/05/22 03:50 Hgb 8.6 g/dL (11.5-15.3) L 12/05/22 03:50 Hct 30.2 % (37.0-47.0) L 12/05/22 03:50 MCV 100.7 fl (81-99) H 12/05/22 03:50 MCH 28.7 pg (28.0-34.0) 12/05/22 03:50 MCHC 28.5 g/dL (30.0-36.0) L 12/05/22 03:50 RDW 17.3 % (12.1-15.1) H 12/05/22 03:50 Plt Count 200 10^3/cmm (130-400) 12/05/22 03:50 MPV 9.6 fL (7.4-10.4) 12/05/22 03:50 Neut % (Auto) 78.8 % 12/05/22 03:50 Lymph % (Auto) 10.0 % 12/05/22 03:50 [place] % (Auto) 8.4 % 12/05/22 03:50 Eos % (Auto) 1.4 % 12/05/22 03:50 Baso % (Auto) 0.7 % 12/05/22 03:50 Neut # (Auto) 3.45 10^3/uL (1.8-7.7) 12/05/22 03:50 Lymph # (Auto) 0.4 10^3/uL (0.8-4.8) L 12/05/22 03:50 [place] # (Auto) 0.4 10^3/uL (0.2-0.9) 12/05/22 03:50 Eos # (Auto) 0.1 10^3/uL (0.0-0.8) 12/05/22 03:50 Baso # (Auto) 0.0 10^3/uL (0.0-0.1) 12/05/22 03:50 Nucleated RBC % (auto) 0.7 % 12/05/22 03:50 Nucleated RBCs # 0.0 /100WBC 12/05/22 03:50 PT 13.70 SECONDS (12.1-14.9) 11/19/22 00:25 INR 1.02 (0.8-1.2) 11/19/22 00:25 Specimen Type Arterial 11/27/22 09:22 Sample Site Radial, right 11/27/22 09:22 ABG pH 7.38 (7.35-7.45) 11/27/22 09:22 ABG pCO2 70.1 mmHg (35-45) H* 11/27/22 09:22 ABG pO2 89.1 mmHg (80.0-100.0) 11/27/22 09:22 ABG HCO3 41.0 mmol/L (22-26) H 11/27/22 09:22 ABG O2 Saturation 96.9 11/26/22 21:28 ABG Base Excess 13.3 mmol/L (-2.0-2.0) H 11/27/22 09:22 Francisco Test Pos 11/27/22 09:22 A-a O2 Gradient 5.5 mmHg (5-10) 11/26/22 21:28 Hematocrit 32.8 % (37-47) L 11/27/22 09:22 Hgb O2 Saturation 93.8 % (95-100) L 11/26/22 21:28 Carboxyhemoglobin 2.8 %THgb (0.4-20.1) 11/26/22 21:28 Methemoglobin 0.3 % (0.4-1.5) L 11/26/22 21:28 Total Hemoglobin 8.5 g/dL (12-16) L 11/26/22 21:28 Sodium 146.0 mmol/L (131-143) H 11/26/22 21:28 Potassium 4.0 mmol/L (3.5-5.0) 11/26/22 21:28 Glucose 313.0 mg/dL (70-115) H 11/26/22 21:28 Ionized Calcium 1.4 mmol/L (1.1-1.4) 11/26/22 21:28 O2 Delivery Device Nc 11/27/22 09:22 O2 Liters/Min 4.0 % 11/27/22 09:22 FiO2 30.0 % 11/26/22 21:28 Tidal Volume 0.55 11/19/22 16:09 PEEP 8.0 cmH20 11/26/22 21:28 Structural Welder ID Jacobo 11/27/22 09:22 Sodium 146 mmol/L (136-145) H 12/05/22 03:50 Potassium 3.7 mmol/L (3.5-5.1) 12/05/22 03:50 Chloride 102 mmol/L (98-107) 12/05/22 03:50 Carbon Dioxide 36 mmol/L (22-29) H 12/05/22 03:50 Anion Gap 11.7 (5-19) 12/05/22 03:50 BUN 39 mg/dL (8-23) H 12/05/22 03:50 Creatinine 1.1 mg/dL (0.5-0.9) H 12/05/22 03:50 GFR Calculation Not Reportable 12/05/22 03:50 Glucose 241 mg/dL (65-115) H 12/05/22 03:50 POC Glucose 280 mg/dL (70-110) H 12/05/22 06:49 Estimat Average Glucose 94 11/25/22 05:19 Hemoglobin A1c 4.9 % (4.0-6.0) 11/25/22 05:19 Calculated Osmolality 319 mOsm/kg (285-295) H 12/05/22 03:50 Lactate 0.5 mmol/L (0.5-2.2) 11/20/22 14:35 Calcium 10.5 mg/dL (8.5-10.5) 12/05/22 03:50 Phosphorus 3.1 mg/dL (2.5-4.5) 12/03/22 07:49 Magnesium 1.9 mg/dL (1.7-2.3) 12/02/22 04:09 Iron 51 ug/dL (37-145) 11/30/22 07:59 TIBC 175 mcg/dl 11/30/22 07:59 % Saturation 29.1 % (20-50) 11/30/22 07:59 Unsat Iron Binding 124 ug/dL (112-347) 11/30/22 07:59 Ferritin 177 ng/mL (15-150) H 11/30/22 07:59 Total Bilirubin 0.6 mg/dL (0.15-1.2) 12/03/22 07:49 AST 15 U/L (0-32) 12/03/22 07:49 ALT 15 U/L (0-33) 12/03/22 07:49 Alkaline Phosphatase 45 U/L (35-105) 12/03/22 07:49 Troponin T Gen 5 ng/L 22 ng/L (0-10) H 11/20/22 03:07 Troponin T Baseline 111 ng/L (0-10) H* 11/27/22 11:34 Troponin T 120 Minute 111.7 ng/L (0-10) H 11/27/22 13:48 Delta Troponin T 0.7 ABS# (0-10) 11/27/22 13:48 Troponin T Hi Sens 6Hr 121.0 ng/L (0-10) H 11/27/22 17:25 Troponin T Hi Sens 6Hr Delta 10.0 ng/L (0-12) 11/27/22 17:25 NT-Pro-B Natriuret Pep 990 pg/mL (0-450) H 11/19/22 00:35 Total Protein 5.6 g/dL (6.6-8.7) L 12/03/22 07:49 Albumin 3.3 g/dL (3.5-5.2) L 12/03/22 07:49 Globulin 2.3 g/dL (1.3-4.6) 12/03/22 07:49 Lipase 80 U/L (13-60) H 11/19/22 00:25 25-OH Vitamin D Total 51 ng/mL (30-100) 12/02/22 04:09 PTH Intact 63.7 pg/mL (15-65) 12/02/22 04:09 Calcium (PTH Intact) 10.6 mg/dL (8.5-10.5) H 12/02/22 04:09 Random Cortisol 19.30 ug/dL (2.47-19.5) 11/21/22 15:02 Urine Color Yellow (Yellow) 11/19/22 04:37 Urine Appearance Hazy (CLEAR) A 11/19/22 04:37 Urine pH 5 (5-7) 11/19/22 04:37 Ur Specific [place] 1.025 (1.005-1.030) 11/19/22 04:37 Urine Protein Neg (Negative) 11/19/22 04:37 Urine Glucose (UA) Norm (Normal) 11/19/22 04:37 Urine Ketones Negative (Negative) 11/19/22 04:37 Urine Blood Neg (Negative) 11/19/22 04:37 Urine Nitrate Negative (Negative) 11/19/22 04:37 Urine Bilirubin Neg (Negative) 11/19/22 04:37 Urine Urobilinogen Neg mg/dL (Negative) 11/19/22 04:37 Ur Leukocyte Esterase Negative (Negative) 11/19/22 04:37 Urine RBC 0-4 /hpf (0-2) H 11/19/22 04:37 Urine WBC 5-10 /hpf (0-5) H 11/19/22 04:37 Ur Squamous Epith Cells 10-15 /hpf (0-5) H 11/19/22 04:37 Calcium Oxalate Crystal 0-4 /hpf H 11/19/22 04:37 Amorphous Sediment Not Reportable 11/19/22 04:37 Urine Bacteria 3+ /hpf (NONE) H 11/19/22 04:37 Urine Mucus 1+ /hpf 11/19/22 04:37 Urine Osmolality 244 mOsm/kg (50-1200) 11/20/22 12:15 Ur Random Sodium 10 mmol/L 11/19/22 04:30 Ur Random Potassium 47 mmol/L 11/19/22 04:30 Ur Random Chloride 10 mmol/L 11/19/22 04:30 Urine Creatinine 127 mg/dL (28-217) 11/19/22 04:30 Serum Ketones Negative (Negative) 11/27/22 04:44 Blood Type B Positive 12/02/22 09:53 Rho(D) Type Positive 12/02/22 09:53 Antibody Screen Negative 12/02/22 09:53 Crossmatch See Detail 12/02/22 09:53 Vitals Last Vital Signs Temp 98.1 F 12/05/22 08:00 Pulse 76 12/05/22 08:00 Resp 20 H 12/05/22 08:00 BP 164/71 12/05/22 08:00 Pulse Ox 97 12/05/22 08:00 O2 Del Method BiPAP 12/05/22 08:00 O2 Flow Rate 3 12/05/22 08:00 FiO2 35 12/05/22 04:00 Discharge Plan Discharge Patient Disposition: Xfer [facility] Condition: Stable Prescriptions: New clopidogrel [Plavix] 75 mg tablet 75 mg PO DAILY Qty: 30 0RF levofloxacin 750 mg tablet 750 mg PO DAILY 7 Days Qty: 7 0RF potassium chloride 10 mEq tablet extended release 10 meq PO DAILY Qty: 30 0RF Continued dorzolamide 2 % drops 1 drp ophthalmic (eye) BID ondansetron HCl 4 mg tablet 4 mg PO Q6H PRN (Reason: nausea and vomiting) hydralazine 25 mg tablet 25 mg PO TID Qty: 90 3RF latanoprost 0.005 % drops 1 drp ophthalmic (eye) BEDTIME Rx Instructions: (BOTH EYES) atorvastatin 20 mg tablet 20 mg PO BEDTIME mupirocin 2 % ointment 1 applic TOPICAL DAILY albuterol sulfate 90 mcg/actuation HFA aerosol inhaler 2 puff INHALATION Q6H PRN (Reason: Shortness Of Breath) fluticasone propionate 50 mcg/actuation spray,suspension 1 spray INTRANASAL DAILY Creon 24,000-76,000 -120,000 unit capsule,delayed release(DR/EC) 2 cap PO TID gabapentin 100 mg capsule 100 mg PO TID ferrous sulfate [iron] 325 mg (65 mg iron) Tablet 325 mg PO TID cholecalciferol (vitamin D3) [Vitamin D3] 25 mcg (1,000 unit) Capsule 25 mcg PO DAILY Women's 50 Plus Multivitamin 400 mcg-500 mg calcium-20 mcg Tablet 1 tab PO DAILY biotin 5,000 mcg Tablet, Sublingual 5,000 mcg SUBLINGUAL BID clotrimazole 1 % cream 1 applic topical BID 28 Days Qty: 30 2RF albuterol sulfate 2.5 mg /3 mL (0.083 %) Solution For Nebulization 2.5 mg INHALATION QID PRN (Reason: Shortness Of Breath) ipratropium bromide 0.02 % Solution 2.5 ml INHALATION QID PRN (Reason: Shortness Of Breath) insulin lispro [Humalog KwikPen Insulin] 100 unit/mL insulin pen See Rx Instructions .ROUTE .COMPLEX Qty: 15 0RF Rx Instructions: PER SLIDING SCALE Anoro Ellipta 62.5-25 mcg/actuation blister with device 2 ea inhalation DAILY Qty: 60 2RF diltiazem HCl 120 mg capsule,extended release 24hr 120 mg PO DAILY Qty: 60 0RF Changed furosemide 40 mg tablet 40 mg PO DAILY@0800 Qty: 60 1RF pantoprazole 40 mg tablet,delayed release (DR/EC) 40 mg PO BIDWMEAL Qty: 90 3RF Toujeo SoloStar U-300 Insulin 300 unit/mL (1.5 mL) insulin pen 70 unit SUBCUT DAILY Qty: 4.5 3RF Held Humira(CF) Pen 40 mg/0.4 mL pen injector kit 40 mg SUBCUT Q7D Hold Instructions: Resume on 01/10/23. Discontinued scopolamine base 1 mg over 3 days patch 3 day 1 patch transdermal Q3D PRN (Reason: Nausea And Vomiting) Pacerone 200 mg tablet 200 mg PO DAILY Qty: 90 3RF aspirin 81 mg Tablet,Chewable 81 mg PO DAILY clonidine HCl 0.1 mg tablet 0.2 mg PO BID metolazone 5 mg Tablet 5 mg PO DAILY 30 Days Qty: 30 0RF Discharge Orders: Discharge Order (Routine); Ordered 12/06/22 Ordered By: Milla Molina Referrals: Deep Angeles DO [Primary Care Provider] - Asher Marshall DO [Physician] - 2 weeks (Telehealth visit) Discharge Diet: As Directed Patient Instructions: GI Discharge Instructions Discharge Attestations Time Spent in Discharge Care*: greater than 30 min Status at Discharge: Cognitive status at discharge: cognitively intact, Behavioral status at discharge: cooperative, Quality Metrics Clinical Quality Measures [ No reported AMI, CVA or VTE this stay] Coding Level of Care Code Acute Code for Chg Fwd Diagnoses CKD (chronic kidney disease) stage 4, GFR 15-29 ml/min N18.4
[2022-12-06 10:35] LABS: SARS Covid-2 Antigen negative (Negative)
--- NOTE | 2022-12-06 11:34 | PC.SOCIAL ---
Imm update Imm updated with patient at bedside. Copy of page 2 provided. Patient verbalized understanding. Copy in chart initialed, dated and timed.
[2022-12-06 11:38] LABS: Glucose Point of Care 236 mg/dL (70-110)
--- NOTE | 2022-12-06 11:47 | PC.NURSE ---
Report called to [facility].
== END 2022-12-06 13:21 | disposition skilled nursing facility (03) | DRG 377 ==
LOC: ER 23:30 → ICU 11-19 03:35 → MEDSURG 11-23 12:56
PROVIDERS: Hospitalist; Internal Medicine; Surgery; Admitting Provider Student in an Organized Health Care Education/Training Program; Emergency Provider Emergency Medicine; PCP Family Medicine; Visit Provider Internal Medicine
PROC: 0DJ08ZZ Inspection of Upper Intestinal Tract, Via Natural or Artificial Opening Endoscopic (ICD-10-PCS; CPT 43235; principal; 2022-11-22 10:30)
DX: K29.71 Gastritis, unspecified, with bleeding (principal); I50.33 Acute on chronic diastolic (congestive) heart failure; J18.9 Pneumonia, unspecified organism; J96.22 Acute and chronic respiratory failure with hypercapnia; J96.21 Acute and chronic respiratory failure with hypoxia; N17.0 Acute kidney failure with tubular necrosis; K76.6 Portal hypertension; I13.0 Hypertensive heart and chronic kidney disease with heart failure and stage 1 through stage 4 chronic kidney disease, or unspecified chronic kidney disease; E87.1 Hypo-osmolality and hyponatremia; E87.20 Acidosis, unspecified; I5A Non-ischemic myocardial injury (non-traumatic); K31.89 Other diseases of stomach and duodenum; E11.22 Type 2 diabetes mellitus with diabetic chronic kidney disease; E11.65 Type 2 diabetes mellitus with hyperglycemia; N18.9 Chronic kidney disease, unspecified; E87.5 Hyperkalemia; E11.649 Type 2 diabetes mellitus with hypoglycemia without coma; E11.51 Type 2 diabetes mellitus with diabetic peripheral angiopathy without gangrene; D46.9 Myelodysplastic syndrome, unspecified; G47.30 Sleep apnea, unspecified; F41.9 Anxiety disorder, unspecified; Z99.81 Dependence on supplemental oxygen; L30.4 Erythema intertrigo; I05.0 Rheumatic mitral stenosis; I95.9 Hypotension, unspecified; I27.20 Pulmonary hypertension, unspecified; Z86.16 Personal history of COVID-19; Z87.01 Personal history of pneumonia (recurrent); D63.1 Anemia in chronic kidney disease; R68.0 Hypothermia, not associated with low environmental temperature; I25.2 Old myocardial infarction; I48.91 Unspecified atrial fibrillation; J44.9 Chronic obstructive pulmonary disease, unspecified; Z79.4 Long term (current) use of insulin; Z79.51 Long term (current) use of inhaled steroids; L73.2 Hidradenitis suppurativa; R13.10 Dysphagia, unspecified; H10.9 Unspecified conjunctivitis; Z79.818 Long term (current) use of other agents affecting estrogen receptors and estrogen levels; E66.01 Morbid (severe) obesity due to excess calories; Z68.39 Body mass index [BMI] 39.0-39.9, adult; E86.0 Dehydration
CPT/HCPCS: 12345; 36415; 36416; 36430; 36569; 36592; 36600; 51702; 70450; 71045; 71250; 74022; 74176; 78452; 80048; 80051; 80053; 80069; 81001; 82009; 82306; 82310; 82330; 82436; 82533; 82570; 82728; 82803; 82805; 82962; 83036; 83540; 83550; 83605; 83690; 83735; 83880; 83935; 83970; 84100; 84133; 84295; 84300; 84484; 85014; 85018; 85025; 85610; 86850; 86900; 86920; 87426; 88305; 88342; 92523; 92526; 92610; 93005; 93017; 94640; 94660; 94664; 94762; 96365; 96366; 96372; 96374; 96375; 96376; 97110; 97116; 97161; 97165; 97530; 97535; 99285; A9500; C8929; C9113; J0461; J0610; J0612; J0692; J1265; J1610; J1650; J1720; J1815; J1940; J2405; J2704; J2765; J2785; J3490; J7030; J7070; J7131; J7613; P9016; Q3014